=== PATIENT | female | born 1970 | race Caucasian/White ===

== ENCOUNTER → 2016-11-23 | Outpatient (CLI) | payer BC ==
[~2016-11-23] MED LIST: /ESCI20TA; /ESOM40CA; /PANT40TA PO; ACETTAB PO; CARI350T19 PO; DILA2TAB; FIORICET; FOLI1TAB; GAS-80CH; IMIT6INJ; IMIT6KIT SC; NEUR300C; NORCOBULK FT; PENT500C4 PO; SOMA350T; TOPA100T PO; TOPA200T PO; TOPI100T; TREXIMET; VICO5TAB; VITA-113; VITA100072 SL; ZOLO100T PO; [UNRECOGNIZED DRUG - CODE]; [UNRECOGNIZED DRUG - CODE] PO
[2016-11-23 18:55] LABS: MEAN CORPUSCULAR HEMOGLOBIN 29.8 pg (27.0-33.0); MEAN CORPUSCULAR VOLUME 90.4 fl (80.0-96.0); RED CELL DISTRIBUTION WIDTH 15.2 % (11.5-14.5); WHITE BLOOD COUNT 5.5 K/mm3 (4.0-10.0)
[2016-11-23 19:02] LABS: INR 1.05
[2016-11-23 19:54] LABS: ANION GAP 10 MEQ/L (8-16); BLOOD UREA NITROGEN 13 MG/DL (7-18); CALCIUM LEVEL 8.3 MG/DL (8.5-10.1); CARBON DIOXIDE LEVEL 21 MEQ/L (21-32); CHLORIDE LEVEL 111 MEQ/L (98-107); CREATININE FOR GFR 0.92 MG/DL (0.55-1.02); GLOMERULAR FILTRATION RATE > 60.0 (>58); GLUCOSE, FASTING 88 MG/DL (70-105); POTASSIUM SERUM 3.9 MEQ/L (3.5-5.1); SODIUM LEVEL 142 MEQ/L (136-145)
== END ==
LOC: M WUC 16:15
PROVIDERS: ATTEND Registered Nurse
DX: I67.1 Cerebral aneurysm, nonruptured (principal)

== ENCOUNTER → 2017-05-05 | Outpatient (CLI) | payer BC ==
[2017-05-05 19:52] LABS: MEAN CORPUSCULAR HEMOGLOBIN 31.8 pg (27.0-33.0); MEAN CORPUSCULAR HGB CONC 32.5 g/dl (32.0-36.5); MEAN CORPUSCULAR VOLUME 97.8 fl (80.0-96.0); RED CELL DISTRIBUTION WIDTH 13.1 % (11.5-14.5); WHITE BLOOD COUNT 8.8 K/mm3 (4.0-10.0)
[2017-05-05 20:08] LABS: ALBUMIN 3.4 GM/DL (3.2-5.2); ALBUMIN/GLOBULIN RATIO 1.13 (1.00-1.93); ALKALINE PHOSPHATASE 41 U/L (45-117); ALT/SGPT 16 U/L (12-78); ANION GAP 7 MEQ/L (8-16); AST/SGOT 11 U/L (15-37); BILIRUBIN,TOTAL 0.2 MG/DL (0.2-1.0); BLOOD UREA NITROGEN 11 MG/DL (7-18); CALCIUM LEVEL 8.4 MG/DL (8.5-10.1); CARBON DIOXIDE LEVEL 26 MEQ/L (21-32); CHLORIDE LEVEL 110 MEQ/L (98-107); CREATININE FOR GFR 0.77 MG/DL (0.55-1.02); GLOMERULAR FILTRATION RATE > 60.0 (>58); GLUCOSE, FASTING 77 MG/DL (70-105); POTASSIUM SERUM 4.4 MEQ/L (3.5-5.1); SODIUM LEVEL 143 MEQ/L (136-145); TOTAL PROTEIN 6.4 GM/DL (6.4-8.2)
[2017-05-05 20:19] LABS: VITAMIN B12 LEVEL 657 PG/ML (247-911)
== END ==
LOC: M WUC 16:43
PROVIDERS: ATTEND Internal Medicine Gastroenterology
DX: R10.84 Generalized abdominal pain (principal); K50.80 Crohn's disease of both small and large intestine without complications

== ENCOUNTER → 2017-08-12 | Outpatient (CLI) | payer BC ==
[2017-08-12 20:23] LABS: ALBUMIN 3.5 GM/DL (3.2-5.2); ALBUMIN/GLOBULIN RATIO 1.25 (1.00-1.93); ALKALINE PHOSPHATASE 36 U/L (45-117); ALT/SGPT 17 U/L (12-78); ANION GAP 6 MEQ/L (8-16); AST/SGOT 9 U/L (15-37); BILIRUBIN,TOTAL 0.2 MG/DL (0.2-1.0); BLOOD UREA NITROGEN 11 MG/DL (7-18); CALCIUM LEVEL 8.6 MG/DL (8.5-10.1); CARBON DIOXIDE LEVEL 24 MEQ/L (21-32); CHLORIDE LEVEL 111 MEQ/L (98-107); CREATININE FOR GFR 0.87 MG/DL (0.55-1.02); GLOMERULAR FILTRATION RATE > 60.0 (>58); GLUCOSE, FASTING 88 MG/DL (70-105); POTASSIUM SERUM 4.2 MEQ/L (3.5-5.1); SODIUM LEVEL 141 MEQ/L (136-145); TOTAL PROTEIN 6.3 GM/DL (6.4-8.2)
[2017-08-12 20:51] LABS: MEAN CORPUSCULAR HEMOGLOBIN 29.9 pg (27.0-33.0); MEAN CORPUSCULAR HGB CONC 32.5 g/dl (32.0-36.5); MEAN CORPUSCULAR VOLUME 91.9 fl (80.0-96.0); RED CELL DISTRIBUTION WIDTH 13.6 % (11.5-14.5)
[2017-08-13 12:40] LABS: CONTROL LINE HCG INT CTR LINE PRESENT
== END ==
LOC: M WUC 16:59
PROVIDERS: ATTEND Internal Medicine Gastroenterology
DX: K50.80 Crohn's disease of both small and large intestine without complications (principal)

== ENCOUNTER → 2017-09-24 | Outpatient (CLI) | payer BC ==
--- NOTE | 2017-09-24 16:39 | REPMRS ---
Patient History The patient states she had a clinical breast exam in 09/2017. Patient had previous chemotherapy. Family history of breast cancer in mother at age 61, breast cancer in 2 maternal aunts at age 50 or over, breast cancer in paternal aunt at age 50 or over, ovarian cancer in maternal grandmother at age 50 or over, and breast cancer in maternal cousin. Taking hormonal contraceptives for 27 years. Digital Woman Screen Mammo: September 24, 2017 - Exam #: [id number] Bilateral CC and MLO view(s) were taken. Technologist: Pia Campuzano, Technologist Prior study comparison: September 28, 2016, digital woman screen mammo performed at [facility]. October 04, 2015, right breast digital mammo diagnostic unilateral, performed at [facility]. October 02, 2015, digital woman screen mammo performed at [facility]. FINDINGS: The breast tissue is heterogeneously dense. This may lower the sensitivity of mammography. Stable groupings of microcalcifications are again noted on the right. There is a moderate amount of heterogeneously dense fibroglandular tissue which is fairly symmetric. There is no interval development of dominant mass, architectural distortion, or clustered microcalcification typical of malignancy. There has been no change in the appearance of the mammogram from the prior studies. ASSESSMENT: BI-RADS/ACR category 2 mammogram. Benign finding(s). Recommendation Routine screening mammogram of both breasts in 1 year (for women over age 40). This mammogram was interpreted with the aid of an FDA-approved computer-aided dectection system. Electronically Signed By: Tino Rahman MD 09/24/17 2914
== END ==
LOC: M WHC 15:30
PROVIDERS: ATTEND Nurse Practitioner Family
DX: Z12.31 Encounter for screening mammogram for malignant neoplasm of breast (principal); Z80.3 Family history of malignant neoplasm of breast; Z92.0 Personal history of contraception

== ENCOUNTER → 2018-04-02 | Outpatient (CLI) | payer BC ==
[2018-04-02 16:48] LABS: HEMATOCRIT 36.5 % (36.0-47.0); HEMOGLOBIN 11.7 g/dl (12.0-15.5); MEAN CORPUSCULAR HEMOGLOBIN 30.2 pg (27.0-33.0); MEAN CORPUSCULAR HGB CONC 32.1 g/dl (32.0-36.5); MEAN CORPUSCULAR VOLUME 94.1 fl (80.0-96.0); PLATELET COUNT, AUTOMATED 205 10^3/uL (150-450); RED BLOOD COUNT 3.88 10^6/uL (4.00-5.40); RED CELL DISTRIBUTION WIDTH 14.3 % (11.5-14.5); WHITE BLOOD COUNT 6.7 10^3/uL (4.0-10.0)
[2018-04-02 16:59] LABS: C REACTIVE PROTEIN QUANTITATIV < 0.30 MG/DL (0.00-0.30)
[2018-04-02 17:44] LABS: ERYTHROCYTE SEDIMENTATION RATE 8 mm/hr (0-20)
== END ==
LOC: M WUC 11:22
DX: K50.00 Crohn's disease of small intestine without complications (principal)
CPT/HCPCS: 86140

== ENCOUNTER → 2018-05-27 | Outpatient (CLI) | payer BC ==
[~2018-05-27] MED LIST changes: -/ESCI20TA; -/ESOM40CA; -/PANT40TA PO; -ACETTAB PO; -CARI350T19 PO; -DILA2TAB; -FIORICET; -FOLI1TAB; -GAS-80CH; +GASTROGRAFIN SOLUTION 30ML (Q9963) As Ordered; -IMIT6INJ; -IMIT6KIT SC; -NEUR300C; -NORCOBULK FT; -PENT500C4 PO; -SOMA350T; -TOPA100T PO; -TOPA200T PO; -TOPI100T; -TREXIMET; -VICO5TAB; -VITA-113; -VITA100072 SL; -ZOLO100T PO; -[UNRECOGNIZED DRUG - CODE]; -[UNRECOGNIZED DRUG - CODE] PO
== END ==
LOC: M RAD 16:30
DX: R10.84 Generalized abdominal pain (principal); K50.80 Crohn's disease of both small and large intestine without complications; K59.00 Constipation, unspecified
CPT/HCPCS: Q9963

== ENCOUNTER → 2018-06-09 | Outpatient (CLI) | payer BC ==
[2018-06-09 19:10] LABS: HEMATOCRIT 35.1 % (36.0-47.0); HEMOGLOBIN 11.3 g/dl (12.0-15.5); MEAN CORPUSCULAR HEMOGLOBIN 30.7 pg (27.0-33.0); MEAN CORPUSCULAR HGB CONC 32.2 g/dl (32.0-36.5); MEAN CORPUSCULAR VOLUME 95.4 fl (80.0-96.0); PLATELET COUNT, AUTOMATED 197 10^3/uL (150-450); RED BLOOD COUNT 3.68 10^6/uL (4.00-5.40); RED CELL DISTRIBUTION WIDTH 14.4 % (11.5-14.5); WHITE BLOOD COUNT 9.4 10^3/uL (4.0-10.0)
[2018-06-09 19:22] LABS: ALBUMIN 3.4 GM/DL (3.2-5.2); ALBUMIN/GLOBULIN RATIO 1.13 (1.00-1.93); ALKALINE PHOSPHATASE 28 U/L (45-117); ALT/SGPT 18 U/L (12-78); ANION GAP 6 MEQ/L (8-16); AST/SGOT 7 U/L (7-37); BILIRUBIN,TOTAL 0.2 MG/DL (0.2-1.0); BLOOD UREA NITROGEN 12 MG/DL (7-18); C REACTIVE PROTEIN QUANTITATIV < 0.30 MG/DL (0.00-0.30); CALCIUM LEVEL 8.1 MG/DL (8.5-10.1); CARBON DIOXIDE LEVEL 24 MEQ/L (21-32); CHLORIDE LEVEL 112 MEQ/L (98-107); CREATININE FOR GFR 0.87 MG/DL (0.55-1.30); GLOMERULAR FILTRATION RATE > 60.0 (>58); GLUCOSE, FASTING 71 MG/DL (70-100); MAGNESIUM LEVEL 2.1 MG/DL (1.8-2.4); POTASSIUM SERUM 4.3 MEQ/L (3.5-5.1); SODIUM LEVEL 142 MEQ/L (136-145); TOTAL PROTEIN 6.4 GM/DL (6.4-8.2)
[2018-06-09 19:26] LABS: TOTAL 25(OH) VITAMIN D 50.4 NG/ML (30.0-100.0); VITAMIN B12 LEVEL 372 PG/ML (247-911)
== END ==
LOC: M WUC 16:52
DX: R10.32 Left lower quadrant pain (principal); R10.31 Right lower quadrant pain; K50.80 Crohn's disease of both small and large intestine without complications; R11.0 Nausea; R53.83 Other fatigue; R60.0 Localized edema; E55.9 Vitamin D deficiency, unspecified
CPT/HCPCS: 83735

== ENCOUNTER → 2018-06-16 | Outpatient (CLI) | payer BC ==
[~2018-06-16] MED LIST changes: -GASTROGRAFIN SOLUTION 30ML (Q9963) As Ordered; +GLUCAGON FOR INJ 1 MG VIAL (J1610) As Ordered; +ISOVUE-370 76% 100ML VIAL (Q9967) As Ordered; +VoLumen 0.1% SUSPENSION 450ML BOTTLE As Ordered
== END ==
LOC: M RAD 11:37
DX: K50.80 Crohn's disease of both small and large intestine without complications (principal); R10.84 Generalized abdominal pain; Z90.49 Acquired absence of other specified parts of digestive tract
CPT/HCPCS: Q9967

== ENCOUNTER → 2018-06-30 | Outpatient (CLI) | payer BC | LOC: M WHC 15:46 | DX: N83.202 Unspecified ovarian cyst, left side (principal); Z90.721 Acquired absence of ovaries, unilateral | CPT/HCPCS: 76830 ==

== ENCOUNTER → 2018-07-28 | Outpatient (REF) | payer BC ==
[2018-07-28 17:57] LABS: CHLAMYDIA DNA AMPLIFICATION NEGATIVE (NEGATIVE); GC DNA AMPLIFICATION NEGATIVE (NEGATIVE)
== END ==
LOC: M SFHCWAGY 13:18
DX: Z11.3 Encounter for screening for infections with a predominantly sexual mode of transmission (principal)
CPT/HCPCS: 87591

== ENCOUNTER → 2018-08-01 | Outpatient (CLI) | payer BC | LOC: M WHC 14:04 | DX: N83.202 Unspecified ovarian cyst, left side (principal) | CPT/HCPCS: 76830 ==

== ENCOUNTER 2018-08-08 16:54 | Emergency (ER) | payer BC ==
[2018-08-08] MEDS: NS 1,000 ML IV (17:33)
[2018-08-08 17:51] LABS: BASO % 0.2 % (0.0-1.0); EOS # 0.2 10^3/uL (0.0-0.50); EOS % 4.2 % (0.0-3.0); HEMATOCRIT 35.3 % (36.0-47.0); HEMOGLOBIN 11.8 g/dl (12.0-15.5); IMMATURE GRANULOCYTE % 0.2 % (0-3.0); LYMPH # 1.7 10^3/uL (1.5-4.5); LYMPH % 36.4 % (24.0-44.0); MEAN CORPUSCULAR HEMOGLOBIN 29.7 pg (27.0-33.0); MEAN CORPUSCULAR HGB CONC 33.4 g/dl (32.0-36.5); MEAN CORPUSCULAR VOLUME 88.9 fl (80.0-96.0); MONO # 0.7 10^3/uL (0.0-0.8); MONO % 14.7 % (0.0-5.0); NEUTROPHILS # 2.1 10^3/uL (1.8-7.7); NEUTROPHILS % 44.3 % (36.0-66.0); PLATELET COUNT, AUTOMATED 168 10^3/uL (150-450); RED BLOOD COUNT 3.97 10^6/uL (4.00-5.40); RED CELL DISTRIBUTION WIDTH 14.5 % (11.5-14.5); WHITE BLOOD COUNT 4.8 10^3/uL (4.0-10.0)
[2018-08-08 18:10] LABS: CONTROL LINE HCG INT CTR LINE PRESENT; HCG, SERUM QUALITATIVE NEGATIVE (NEGATIVE)
[2018-08-08 18:17] LABS: ALBUMIN 3.8 GM/DL (3.2-5.2); ALBUMIN/GLOBULIN RATIO 1.23 (1.00-1.93); ALKALINE PHOSPHATASE 39 U/L (45-117); ALT/SGPT 16 U/L (12-78); AMYLASE 104 U/L (25-115); ANION GAP 8 MEQ/L (8-16); AST/SGOT 14 U/L (7-37); BILIRUBIN,DIRECT < 0.1 MG/DL (0.0-0.2); BILIRUBIN,TOTAL 0.2 MG/DL (0.2-1.0); BLOOD UREA NITROGEN 13 MG/DL (7-18); CARBON DIOXIDE LEVEL 20 MEQ/L (21-32); CHLORIDE LEVEL 116 MEQ/L (98-107); GLOMERULAR FILTRATION RATE > 60.0 (>58); GLUCOSE, FASTING 88 MG/DL (70-100); LIPASE 256 U/L (73-393); POTASSIUM SERUM 3.7 MEQ/L (3.5-5.1); SODIUM LEVEL 144 MEQ/L (136-145); TOTAL PROTEIN 6.9 GM/DL (6.4-8.2)
[2018-08-08] MEDS ORDERED: GASTROGRAFIN SOLUTION 30ML (Q9963) As Ordered (18:20)
[2018-08-08] MEDS: ONDANSETRON 4MG/2ML VIAL (J2405) IV ×2 (19:21→23:25)
[2018-08-08] MEDS: MORPHINE 2 MG/ML 1ML SYRINGE (J2270) IV ×2 (19:21→23:31)
[2018-08-08] MEDS: GASTROGRAFIN SOLUTION 30ML PO ×2 (19:21→19:49)
[2018-08-08 19:22] LABS: KETONE, URINE AUTO RFX NEGATIVE (NEGATIVE); LEUKOCYTE ESTERASE UR AUTO RFX NEGATIVE (NEGATIVE); NITRITE, URINE AUTO RFX NEGATIVE (NEGATIVE); RBC, URINE AUTO RFX 0 /HPF (0-3); SPECIFIC GRAVITY UR AUTO RFX 1.003 (1.002-1.035); SQUAM EPITHELIAL CELL UR AURFX 0 /HPF (0-6); WBC, URINE AUTO RFX 0 /HPF (0-3)
[2018-08-08] MEDS ORDERED: ISOVUE-370 76% 100ML VIAL (Q9967) As Ordered (19:55)
[2018-08-08] MEDS: methylPREDNISolone INJ 125 MG/2 ML VIAL (J2930) IV (23:25)
== END 2018-08-08 23:59 | disposition home or self-care (01) ==
LOC: M ED 16:54
DX: K50.90 Crohn's disease, unspecified, without complications (principal)
CPT/HCPCS: J2405

== ENCOUNTER → 2018-08-22 | Outpatient (CLI) | payer BC ==
[2018-08-22 18:46] LABS: FERRITIN 8 NG/ML (8-252); IRON (FE) 84 UG/DL (50-170); MAGNESIUM LEVEL 2.3 MG/DL (1.8-2.4); PERCENT SATURATION 26.7 % (13.2-45.0); TOTAL IRON BINDING CAPACITY 315 UG/DL (250-450)
[2018-08-22 18:59] LABS: HEPATITIS B SURFACE ANTIGEN NEGATIVE (NEGATIVE)
[2018-08-22 19:27] LABS: HEPATITIS C VIRUS ABY INDEX < 0.0 INDEX (<0.8)
[2018-08-27 08:42] LABS: QUANTIFERON GOLD TB Negative (Negative); TB Test (QFT) Antigen 0.03 IU/mL (.); TB Test (QFT) Mitogen 1.19 IU/mL (.); TB Test (QFT) Nil 0.03 IU/mL (.)
== END ==
LOC: M WUC 14:36
DX: K50.80 Crohn's disease of both small and large intestine without complications (principal); R10.32 Left lower quadrant pain
CPT/HCPCS: 83550

== ENCOUNTER → 2018-09-09 | Outpatient (REF) | payer BC | LOC: M LAB REF 21:07 | DX: R10.814 Left lower quadrant abdominal tenderness (principal) ==

== ENCOUNTER → 2018-09-23 | Outpatient (CLI) | payer BC ==
[2018-09-23 19:11] LABS: BASO % 0.2 % (0.0-1.0); EOS # 0.2 10^3/uL (0.0-0.50); EOS % 2.8 % (0.0-3.0); IMMATURE GRANULOCYTE % 0.5 % (0-3.0); LYMPH # 1.8 10^3/uL (1.5-4.5); LYMPH % 30.6 % (24.0-44.0); MEAN CORPUSCULAR HEMOGLOBIN 29.6 pg (27.0-33.0); MEAN CORPUSCULAR HGB CONC 31.4 g/dl (32.0-36.5); MEAN CORPUSCULAR VOLUME 94.3 fl (80.0-96.0); MONO # 0.6 10^3/uL (0.0-0.8); MONO % 10.6 % (0.0-5.0); NEUTROPHILS # 3.3 10^3/uL (1.8-7.7); NEUTROPHILS % 55.3 % (36.0-66.0); PLATELET COUNT, AUTOMATED 227 10^3/uL (150-450); RED BLOOD COUNT 3.71 10^6/uL (4.00-5.40); RED CELL DISTRIBUTION WIDTH 14.8 % (11.5-14.5)
[2018-09-23 19:20] LABS: FERRITIN 6 NG/ML (8-252); IRON (FE) 18 UG/DL (50-170); PERCENT SATURATION 5.1 % (13.2-45.0); TOTAL IRON BINDING CAPACITY 356 UG/DL (250-450)
[2018-09-23 19:26] LABS: VITAMIN B12 LEVEL 597 PG/ML (247-911)
== END ==
LOC: M WUC 18:02
DX: R10.31 Right lower quadrant pain (principal); R10.32 Left lower quadrant pain; K50.80 Crohn's disease of both small and large intestine without complications; R14.3 Flatulence
CPT/HCPCS: 83550

== ENCOUNTER → 2018-09-23 | Outpatient (CLI) | payer BC ==
[2018-09-23 19:11] LABS: BASO % 0.2 % (0.0-1.0); EOS # 0.2 10^3/uL (0.0-0.50); EOS % 3.6 % (0.0-3.0); HEMATOCRIT 34.9 % (36.0-47.0); HEMOGLOBIN 11.1 g/dl (12.0-15.5); IMMATURE GRANULOCYTE % 0.3 % (0-3.0); LYMPH # 1.9 10^3/uL (1.5-4.5); MEAN CORPUSCULAR HEMOGLOBIN 29.4 pg (27.0-33.0); MEAN CORPUSCULAR HGB CONC 31.8 g/dl (32.0-36.5); MEAN CORPUSCULAR VOLUME 92.3 fl (80.0-96.0); MONO # 0.7 10^3/uL (0.0-0.8); MONO % 10.7 % (0.0-5.0); NEUTROPHILS # 3.3 10^3/uL (1.8-7.7); NEUTROPHILS % 54.2 % (36.0-66.0); PLATELET COUNT, AUTOMATED 241 10^3/uL (150-450); RED BLOOD COUNT 3.78 10^6/uL (4.00-5.40); RED CELL DISTRIBUTION WIDTH 14.7 % (11.5-14.5); WHITE BLOOD COUNT 6.1 10^3/uL (4.0-10.0)
== END ==
LOC: M WUC 17:46
DX: R10.814 Left lower quadrant abdominal tenderness (principal)
CPT/HCPCS: 82785

== ENCOUNTER → 2018-09-26 | Outpatient (REF) | payer BC ==
[2018-10-04 10:21] LABS: O+P EXAM Final report (.)
[2018-10-04 10:21] LABS: CALPROTECTIN STOOL 67 ug/g (0-120)
== END ==
LOC: M LAB REF 18:03
DX: R10.31 Right lower quadrant pain (principal); R10.32 Left lower quadrant pain; K50.80 Crohn's disease of both small and large intestine without complications; R14.3 Flatulence

== ENCOUNTER → 2018-12-05 | Outpatient (CLI) | payer BC ==
[~2018-12-05] MED LIST changes: +/ESCI20TA; +/ESOM40CA; +/PANT40TA PO; +ACETTAB PO; +CARI350T19 PO; +DILA2TAB; +FIORICET; +FOLI1TAB; +GAS-80CH; -GLUCAGON FOR INJ 1 MG VIAL (J1610) As Ordered; +IMIT6INJ; +IMIT6KIT SC; -ISOVUE-370 76% 100ML VIAL (Q9967) As Ordered; +NEUR300C; +NORCOBULK FT; +NORCOTAB PO; +PENT500C4 PO; +PRED20TA PO; +SOMA350T; +TOPA100T PO; +TOPA200T PO; +TOPI100T; +TREXIMET; +VICO5TAB; +VITA-113; +VITA100072 SL; -VoLumen 0.1% SUSPENSION 450ML BOTTLE As Ordered; +ZOLO100T PO; +[UNRECOGNIZED DRUG - CODE]; +[UNRECOGNIZED DRUG - CODE] PO
--- NOTE | 2018-12-08 12:46 | DEXA ---
AP SPINE L1 - L4 1.225 0.2 0.3 LT FEMUR TOTAL 0.825 -1.5 -1.1 LT NECK 0.800 -1.7 -1.1 RT FEMUR TOTAL 0.839 -1.3 -1.0 RT NECK 0.800 -1.7 -1.1 TOTAL BODY TOTAL OTHER COMMENTS: Normal bone densitometry of the spine. There is low bone density of the hips. The density of the spine has decreased 4.2% since 02/27/2005. The density of the left hip has decreased 10.4% since 02/27/2005. The density of the right hip has decreased 6.6% since 02/27/2005. FOLLOW-UP: Recommendation for the next bone density exam: 2 years. RAJIV
== END ==
LOC: M WHC 12:52
PROVIDERS: ATTEND Nurse Practitioner Family
DX: Z30.42 Encounter for surveillance of injectable contraceptive (principal); Z79.899 Other long term (current) drug therapy

== ENCOUNTER → 2018-12-15 | Outpatient (REF) | payer BC ==
[2018-12-20 14:17] LABS: HPV HYBRID CAPTURE II Positive (Negative)
== END ==
LOC: M SFHCWAGY 14:19
PROVIDERS: ATTEND Nurse Practitioner Family
DX: Z12.4 Encounter for screening for malignant neoplasm of cervix (principal)
CPT/HCPCS: 87624; G0123

== ENCOUNTER → 2018-12-15 | Outpatient (CLI) | payer BC ==
--- NOTE | 2018-12-15 15:20 | REPMRS ---
Patient History The patient states she had a clinical breast exam in 11/2018. Patient had previous chemotherapy. Family history of breast cancer at age 61 in mother, breast cancer at age 50 or over in maternal aunt, breast cancer at age 50 or over in maternal aunt, breast cancer at age 50 or over in paternal aunt, ovarian cancer at age 50 or over in maternal grandmother, breast cancer in maternal cousin. Taking hormonal contraceptives for 28 years. 3D TOMOSYNTHESIS WAS PERFORMED. Digital Woman Screen Mammo: December 15, 2018 - Exam #: [id number] Bilateral CC and MLO view(s) were taken. Technologist: Pia Campuzano, Technologist Prior study comparison: September 24, 2017, digital woman screen mammo performed at [facility]. September 28, 2016, digital woman screen mammo performed at [facility]. FINDINGS: The breast tissue is heterogeneously dense. This may lower the sensitivity of mammography. There has been no change in the appearance of the mammogram from the prior studies. There is a moderate amount of residual fibroglandular tissue which is fairly symmetric. There is no interval development of dominant mass, areas of architectural distortion, or clustered microcalcification typical of malignancy. Assessment: BI-RADS/ACR category 1 mammogram. Negative Mammogram. Recommendation Routine screening mammogram in 1 year (for women over age 40). This mammogram was interpreted with the aid of an FDA-approved computer-aided dectection system. THE LIFETIME RISK OF BREAST CANCER IS 33.7%, THEREFORE SUPPLEMENTAL SCREENING MRI OF THE BREASTS IS RECOMMENDED. Electronically Signed By: Brayan Lam MD 12/15/18 [id number]
== END ==
LOC: M WHC 13:50
PROVIDERS: ATTEND Nurse Practitioner Family
DX: Z12.31 Encounter for screening mammogram for malignant neoplasm of breast (principal)

== ENCOUNTER → 2019-03-17 | Outpatient (CLI) | payer BC ==
[~2019-03-17] MED LIST changes: -/ESCI20TA; -/ESOM40CA; -/PANT40TA PO; +HYDR-3715 PO; +LEXA1TAB2; +NEXI1CAP3; -NORCOTAB PO; +PROT1TAB2 PO
[2019-03-17 21:06] LABS: HEMATOCRIT 39.1 % (36.0-47.0); HEMOGLOBIN 12.8 g/dl (12.0-15.5); MEAN CORPUSCULAR HEMOGLOBIN 31.5 pg (27.0-33.0); MEAN CORPUSCULAR HGB CONC 32.7 g/dl (32.0-36.5); MEAN CORPUSCULAR VOLUME 96.3 fl (80.0-96.0); PLATELET COUNT, AUTOMATED 198 10^3/uL (150-450); RED BLOOD COUNT 4.06 10^6/uL (4.00-5.40); WHITE BLOOD COUNT 6.3 10^3/uL (4.0-10.0)
[2019-03-17 21:15] LABS: ALBUMIN 3.6 GM/DL (3.2-5.2); ALT/SGPT 18 U/L (12-78); BILIRUBIN,TOTAL 0.3 MG/DL (0.2-1.0); BLOOD UREA NITROGEN 11 MG/DL (7-18); C REACTIVE PROTEIN QUANTITATIV < 0.30 MG/DL (0.00-0.30); CALCIUM LEVEL 8.1 MG/DL (8.5-10.1); CARBON DIOXIDE LEVEL 25 MEQ/L (21-32); CHLORIDE LEVEL 113 MEQ/L (98-107); FERRITIN 23 NG/ML (8-252); GLOMERULAR FILTRATION RATE > 60.0 (>58); GLUCOSE, FASTING 77 MG/DL (70-100); IRON (FE) 45 UG/DL (50-170); MAGNESIUM LEVEL 2.2 MG/DL (1.8-2.4); PERCENT SATURATION 17.9 % (13.2-45.0); POTASSIUM SERUM 3.7 MEQ/L (3.5-5.1); SODIUM LEVEL 141 MEQ/L (136-145); TOTAL IRON BINDING CAPACITY 252 UG/DL (250-450); TOTAL PROTEIN 6.6 GM/DL (6.4-8.2)
[2019-03-17 21:24] LABS: TOTAL 25(OH) VITAMIN D 50.8 NG/ML (30.0-100.0)
[2019-03-20 14:10] LABS: PROTEIN S ANTIGEN FREE 68 % (57-157); PROTEIN S ANTIGEN TOTAL 69 % (60-150)
== END ==
LOC: M WUC 16:23
PROVIDERS: ATTEND Internal Medicine Gastroenterology
DX: K50.80 Crohn's disease of both small and large intestine without complications (principal); R10.32 Left lower quadrant pain; R19.7 Diarrhea, unspecified; D50.9 Iron deficiency anemia, unspecified; G47.09 Other insomnia; E55.9 Vitamin D deficiency, unspecified

== ENCOUNTER → 2019-06-01 | Outpatient (CLI) | payer BC ==
--- NOTE | 2019-06-01 17:08 | REP ---
Pelvic sonography: History: History of ovarian cysts. Left lower quadrant pain. Findings: Transabdominal and transvaginal scanning are performed. Uterine dimensions are 8.3 x 3.1 x 4.4 cm. Endometrial echo is 0.4 cm thick. Visualized bladder carson are smooth. There is a lower uterine segment cyst 1.0 x 0.7 cm consistent with a Nabothian cyst. The right ovary is normal measuring 1.8 x 0.8 x 1.5 cm. Doppler flow is normal with resistive index 0.64. Left ovarian dimensions are 5.4 x 2.6 x 3.2 cm. There is a 2.9 x 1.9 x 3.2 cm septated cyst in the left adnexa adjacent to a 1.9 x 2.5 x 1.2 cm cyst. Impression: Complex left ovarian cysts, the largest of which measures 3.2 cm in greatest diameter. Otherwise negative pelvic sonography.
== END ==
LOC: M WHC 13:44
PROVIDERS: ATTEND Nurse Practitioner Women's Health
DX: N83.202 Unspecified ovarian cyst, left side (principal); Z87.42 Personal history of other diseases of the female genital tract

== ENCOUNTER → 2019-07-08 | Outpatient (CLI) | payer BC ==
[~2019-07-08] MED LIST changes: +HUMI40KI2 SC; +HYOS1TAB; +LAMO25TA4; +MAG-400T7; +SUMA100T2; +SUMA6INJ16
[2019-07-08 18:45] LABS: BASO % 0.4 % (0.0-1.0); EOS # 0.4 10^3/uL (0.0-0.50); EOS % 8.1 % (0.0-3.0); HEMATOCRIT 37.1 % (36.0-47.0); HEMOGLOBIN 11.9 g/dl (12.0-15.5); LYMPH # 1.9 10^3/uL (1.5-4.5); LYMPH % 37.7 % (24.0-44.0); MEAN CORPUSCULAR HEMOGLOBIN 31.8 pg (27.0-33.0); MEAN CORPUSCULAR HGB CONC 32.1 g/dl (32.0-36.5); MEAN CORPUSCULAR VOLUME 99.2 fl (80.0-96.0); MONO # 0.5 10^3/uL (0.0-0.8); MONO % 8.8 % (0.0-5.0); NEUTROPHILS # 2.3 10^3/uL (1.8-7.7); NEUTROPHILS % 44.8 % (36.0-66.0); PLATELET COUNT, AUTOMATED 205 10^3/uL (150-450); RED BLOOD COUNT 3.74 10^6/uL (4.00-5.40); WHITE BLOOD COUNT 5.1 10^3/uL (4.0-10.0)
[2019-07-08 18:57] LABS: ALBUMIN 3.3 GM/DL (3.2-5.2); ALT/SGPT 16 U/L (12-78); BILIRUBIN,TOTAL 0.3 MG/DL (0.2-1.0); BLOOD UREA NITROGEN 13 MG/DL (7-18); CALCIUM LEVEL 8.1 MG/DL (8.5-10.1); CARBON DIOXIDE LEVEL 24 MEQ/L (21-32); CHLORIDE LEVEL 111 MEQ/L (98-107); CHOLESTEROL LEVEL 200 MG/DL (<200); CHOLESTEROL RISK RATIO 3.703 (<5); CREATININE FOR GFR 0.82 MG/DL (0.55-1.30); FERRITIN 9 NG/ML (8-252); FREE T4 0.94 NG/DL (0.76-1.46); GLOMERULAR FILTRATION RATE > 60.0 (>58); GLUCOSE, FASTING 85 MG/DL (70-100); HDL CHOLESTEROL 54 MG/DL (>40); IRON (FE) 63 UG/DL (50-170); LDL CHOLESTEROL 112 MG/DL (<100); NON-HDL-C 146 MG/DL; PERCENT SATURATION 20.9 % (13.2-45.0); POTASSIUM SERUM 3.8 MEQ/L (3.5-5.1); SODIUM LEVEL 143 MEQ/L (136-145); TOTAL IRON BINDING CAPACITY 301 UG/DL (250-450); TOTAL PROTEIN 5.9 GM/DL (6.4-8.2); TRIGLYCERIDES LEVEL 168 MG/DL (<150)
[2019-07-10 11:02] LABS: TOTAL 25(OH) VITAMIN D 35.8 NG/ML (30.0-100.0)
== END ==
LOC: M WUC 09:13
PROVIDERS: ATTEND Physician Assistant
DX: Z13.220 Encounter for screening for lipoid disorders (principal); D50.9 Iron deficiency anemia, unspecified; Z13.29 Encounter for screening for other suspected endocrine disorder; E55.9 Vitamin D deficiency, unspecified

== ENCOUNTER → 2019-10-04 | Outpatient (CLI) | payer BC ==
[~2019-10-04] MED LIST changes: -HUMI40KI2 SC; -HYOS1TAB; -LAMO25TA4; -MAG-400T7; -SUMA100T2; -SUMA6INJ16
--- NOTE | 2019-10-04 16:35 | REP ---
Single view abdomen: 10/04/2019. Indication: Abdominal pain. Comparison: 08/08/2018. Findings: increased stool is noted within the colon throughout. There is mild dilation of the small bowel near the anastomotic site. No air fluid level is present. There is no evidence of renal calculus. There is no evidence of organomegaly. Impression: Constipation? Mildly dilated distal small bowel near the anastomosis. No evidence of obstruction. Electronically Signed by Dakotah Thornton DO 10/04/2019 04:26 P
== END ==
LOC: M RAD 15:33
PROVIDERS: ATTEND Internal Medicine Gastroenterology
DX: R10.13 Epigastric pain (principal); K59.00 Constipation, unspecified; R11.2 Nausea with vomiting, unspecified; Z98.0 Intestinal bypass and anastomosis status; K59.8 Other specified functional intestinal disorders

== ENCOUNTER 2019-11-21 15:08 | Emergency (ER) | payer BC ==
[~2019-11-21] VITALS: Ht 162.6 cm; Wt 68.2 kg
[2019-11-21] MEDS ORDERED: HUMI40KI2 SC (15:59)
[2019-11-21] MEDS ORDERED: HYOS1TAB (15:59)
[2019-11-21] MEDS ORDERED: SUMA100T2 (15:59)
[2019-11-21] MEDS ORDERED: LAMO25TA4 (15:59)
[2019-11-21] MEDS ORDERED: MAG-400T7 (15:59)
[2019-11-21] MEDS ORDERED: SUMA6INJ16 (15:59)
--- NOTE | 2019-11-21 16:07 | REP ---
INDICATION: Headache, blurred vision. PROCEDURE: Noncontrast head CT. COMPARISON STUDIES: No prior similar studies. FINDINGS: No acute bleed or acute large vessel territorial infarct. Ventricles, cisterns and sulci are within normal limits. No mass effect or midline shift. No abnormal fluid collections. Paranasal sinuses and mastoid air cells are clear. IMPRESSION: No acute findings. Electronically Signed by Hiram Hussein MD 11/21/2019 03:59 P
--- NOTE | 2019-11-21 16:10 | REP ---
INDICATION: Headache, blurred vision. PROCEDURE: CT cervical spine without contrast. COMPARISON STUDIES: No prior similar studies. FINDINGS: Spinal alignment within normal limits. No evidence of fracture or subluxation. Cranial vertebral junction is unremarkable. Spinal canal widely patent. No evidence of a limiting foraminal stenosis. There is mild posterior osteophyte formation and mild osteophytic spurring with minimal narrowing of the neural foramen bilaterally. CONCLUSION: No acute findings. Minor degenerative changes. Electronically Signed by Hiram Hussein MD 11/21/2019 04:01 P
[2019-11-21] MEDS ORDERED: diphenhydrAMINE INJ 50MG/ML VIAL (J1200) IV STA (17:19)
[2019-11-21] MEDS ORDERED: ONDANSETRON 4MG/2ML VIAL (J2405) IV ONE (17:30)
[2019-11-21] MEDS ORDERED: NS 1,000 ML IV ONE (17:30)
[2019-11-21 17:55] LABS: BASO % 0.4 % (0.0-1.0); EOS # 0.3 10^3/uL (0.0-0.5); EOS % 4.3 % (0.0-3.0); HEMATOCRIT 34.4 % (36.0-47.0); HEMOGLOBIN 10.8 g/dl (12.0-15.5); LYMPH % 28.9 % (24.0-44.0); MEAN CORPUSCULAR HEMOGLOBIN 27.8 pg (27.0-33.0); MEAN CORPUSCULAR HGB CONC 31.4 g/dl (32.0-36.5); MEAN CORPUSCULAR VOLUME 88.7 fl (80.0-96.0); MONO # 0.7 10^3/uL (0.0-0.8); MONO % 10.6 % (0.0-5.0); NEUTROPHILS # 3.8 10^3/uL (1.5-8.5); NEUTROPHILS % 55.5 % (36.0-66.0); PLATELET COUNT, AUTOMATED 215 10^3/uL (150-450); RED BLOOD COUNT 3.88 10^6/uL (4.00-5.40); WHITE BLOOD COUNT 6.8 10^3/uL (4.0-10.0)
--- NOTE | 2019-11-21 20:51 | REPVR ---
PROCEDURE INFORMATION: Exam: MR Head Without Contrast Exam date and time: 11/21/2019 6:53 PM Age: 48 years old Clinical indication: Visual disturbance; Patient HX: HX leaking anuerysm, DUNCAN, R eye blind, R eye twitching TECHNIQUE: Imaging protocol: MR of the head without contrast. COMPARISON: CT Head without contrast 11/21/2019 3:43 PM FINDINGS: Ventricles demonstrate normal size and configuration. Major vascular flow voids at the skull base are preserved. No extra-axial fluid collection. No midline shift or intracranial mass effect. No pathologic white-matter signal or susceptibility. No cerebral edema. No diffusion restriction. Visualized paranasal sinuses and mastoid air cells are clear. IMPRESSION: No acute intracranial abnormality. Electronically signed by: Josh Rees On 11/21/2019 20:51:32 PM
--- NOTE | 2019-11-21 20:56 | REPVR ---
PROCEDURE INFORMATION: Exam: MR Angiogram Head Without Contrast, Arteries Exam date and time: 11/21/2019 6:53 PM Age: 48 years old Clinical indication: Visual disturbance; Type not specified; Patient HX: HX leaking anuerysm, DUNCAN, R eye blind, R eye twitching TECHNIQUE: Imaging protocol: MR angiogram head without contrast. Exam focused on the arteries. 3D rendering: MIP and/or 3D reconstructed images were created by the technologist. COMPARISON: CT Head without contrast 11/21/2019 3:43 PM FINDINGS: Right internal carotid artery: Unremarkable. Intracranial segment is patent with no significant stenosis. No aneurysm. Right anterior cerebral artery: Hypoplastic right A1 segment. 1.5 mm x 2 mm aneurysm involving the anterior communicating artery. Right middle cerebral artery: 1 mm x 1.5 mm aneurysm involving the right M1 segment. Right posterior cerebral artery: Unremarkable. No occlusion or significant stenosis. No aneurysm. Right vertebral artery: Unremarkable. No occlusion or significant stenosis. No aneurysm. Left internal carotid artery: Unremarkable. Intracranial segment is patent with no significant stenosis. No aneurysm. Left anterior cerebral artery: Unremarkable. No occlusion or significant stenosis. No aneurysm. Left middle cerebral artery: Unremarkable. No occlusion or significant stenosis. No aneurysm. Left posterior cerebral artery: Unremarkable. No occlusion or significant stenosis. No aneurysm. Left vertebral artery: Unremarkable. No occlusion or significant stenosis. No aneurysm. Basilar artery: Unremarkable. No occlusion or significant stenosis. No aneurysm. IMPRESSION: 1. 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 2. 1 mm x 1.5 mm aneurysm involving the right M1 segment. 3. No hemodynamically significant stenosis or large vessel occlusion. Electronically signed by: Josh Rees On 11/21/2019 20:56:06 PM
[2019-11-21] MEDS ORDERED: PRED20TA PO (22:38)
[2019-11-21] MEDS ORDERED: predniSONE 20 MG TAB PO ONE (22:45)
[2019-11-21 22:46] VITALS: BP 109/65
--- NOTE | 2019-11-22 13:02 | ED PDOC ---
Post-Departure Follow-Up dr olivas and mandie pascual faxed formal report of [facility] brain for fu Mohan Villatoro MD Nov 22, 2019 13:02
== END 2019-11-21 22:59 | disposition home or self-care (01) ==
LOC: M ED 15:08
DX: I67.1 Cerebral aneurysm, nonruptured (principal); G44.40 Drug-induced headache, not elsewhere classified, not intractable; H53.131 Sudden visual loss, right eye; M51.26 Other intervertebral disc displacement, lumbar region; K50.919 Crohn's disease, unspecified, with unspecified complications; M25.78 Osteophyte, vertebrae; J30.2 Other seasonal allergic rhinitis; Z79.899 Other long term (current) drug therapy; Z88.0 Allergy status to penicillin; Z88.8 Allergy status to other drugs, medicaments and biological substances
CPT/HCPCS: 70450; 70544; 70551; 72125; 80047; 83735; 84702; 85025; 96361; 96374; 96375; 99284; J1200; J2405

== ENCOUNTER → 2019-12-18 | Outpatient (CLI) | payer BC ==
[~2019-12-18] MED LIST changes: +HUMI40KI2 SC; +HYOS1TAB; +LAMO25TA4; +MAG-400T7; +SUMA100T2; +SUMA6INJ16
[2019-12-18 12:14] LABS: BASO % 0.2 % (0.0-1.0); EOS # 0.3 10^3/uL (0.0-0.5); EOS % 4.9 % (0.0-3.0); HEMATOCRIT 39.3 % (36.0-47.0); HEMOGLOBIN 11.9 g/dl (12.0-15.5); LYMPH # 1.7 10^3/uL (1.5-5.0); LYMPH % 32.9 % (24.0-44.0); MEAN CORPUSCULAR HEMOGLOBIN 26.8 pg (27.0-33.0); MEAN CORPUSCULAR HGB CONC 30.3 g/dl (32.0-36.5); MEAN CORPUSCULAR VOLUME 88.5 fl (80.0-96.0); MONO # 0.4 10^3/uL (0.0-0.8); MONO % 7.2 % (0.0-5.0); NEUTROPHILS # 2.8 10^3/uL (1.5-8.5); NEUTROPHILS % 54.4 % (36.0-66.0); PLATELET COUNT, AUTOMATED 289 10^3/uL (150-450); RED BLOOD COUNT 4.44 10^6/uL (4.00-5.40); WHITE BLOOD COUNT 5.1 10^3/uL (4.0-10.0)
[2019-12-18 12:23] LABS: APPEARANCE, URINE HAZY (CLEAR); BACTERIA, URINE AUTO NEGATIVE (NEGATIVE); BILIRUBIN, URINE AUTO NEGATIVE (NEGATIVE); BLOOD, URINE BLOOD NEGATIVE (NEGATIVE); COLOR, URINE AMBER (YELLOW); GLUCOSE, URINE (UA) AUTO NEGATIVE (NEGATIVE); KETONE, URINE AUTO NEGATIVE (NEGATIVE); LEUKOCYTE ESTERASE, URINE AUTO NEGATIVE (NEGATIVE); MUCUS, URINE SMALL (NEGATIVE); NITRITE, URINE AUTO NEGATIVE (NEGATIVE); PROTEIN, URINE AUTO NEGATIVE (NEGATIVE); RBC, URINE AUTO 2 /HPF (0-3); SPECIFIC GRAVITY URINE AUTO 1.027 (1.002-1.035); SQUAMOUS EPITHELIAL CELL UR AU 1 /HPF (0-6); UROBILINOGEN, URINE AUTO 0.2 mg/dL (0.0-2.0); WBC, URINE AUTO 2 /HPF (0-3)
[2019-12-18 12:29] LABS: INR 0.95; PROTHROMBIN TIME 12.4 SECONDS (11.8-14.0)
[2019-12-18 12:30] LABS: PARTIAL THROMBOPLASTIN TIME 31.6 SECONDS (25.0-38.4)
--- NOTE | 2019-12-18 12:34 | REP ---
Chest x-ray: Two views. History: preadmission testing . Comparison study: January 15, 2010 . Findings: The lungs are well inflated and free of infiltrate. The pleural angles are sharp. The heart size is normal. Pulmonary vasculature is not increased. No significant bony abnormality is seen. Impression: Negative chest x-ray. Electronically Signed by Robbie Rahman MD 12/18/2019 12:26 P
[2019-12-18 12:43] LABS: ALBUMIN 3.9 GM/DL (3.2-5.2); ALT/SGPT 40 U/L (12-78); BILIRUBIN,TOTAL 0.5 MG/DL (0.2-1.0); BLOOD UREA NITROGEN 16 MG/DL (7-18); CALCIUM LEVEL 9.1 MG/DL (8.5-10.1); CARBON DIOXIDE LEVEL 26 MEQ/L (21-32); CHLORIDE LEVEL 108 MEQ/L (98-107); CREATININE FOR GFR 0.89 MG/DL (0.55-1.30); GLOMERULAR FILTRATION RATE > 60.0 (>58); GLUCOSE, FASTING 114 MG/DL (70-100); HCG, SERUM QUALITATIVE NEGATIVE (NEGATIVE); POTASSIUM SERUM 3.7 MEQ/L (3.5-5.1); SODIUM LEVEL 142 MEQ/L (136-145); TOTAL PROTEIN 7.5 GM/DL (6.4-8.2)
--- NOTE | 2019-12-18 20:54 | ECGEPIP ---
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
[2019-12-22 14:47] LABS: C REACTIVE PROTEIN QUANTITATIV < 0.30 MG/DL (0.00-0.30)
== END ==
LOC: M LAB 11:34
PROVIDERS: ATTEND Neurological Surgery
DX: Z01.818 Encounter for other preprocedural examination (principal); I67.1 Cerebral aneurysm, nonruptured; R51 Headache; H53.121 Transient visual loss, right eye

== ENCOUNTER → 2019-12-19 | Outpatient (REF) | payer BC | LOC: M SFHCWAGY 10:51 | PROVIDERS: ATTEND Nurse Practitioner Family | DX: R87.810 Cervical high risk human papillomavirus (HPV) DNA test positive (principal) | CPT/HCPCS: 87624; G0123 ==

== ENCOUNTER → 2019-12-19 | Outpatient (CLI) | payer BC ==
--- NOTE | 2019-12-20 11:46 | REPMRS ---
Patient History The patient states she had a clinical breast exam in December 2019.Family history of breast cancer at age 61 in mother, breast cancer at age 50 or over in maternal aunt, breast cancer at age 50 or over in maternal aunt, breast cancer at age 50 or over in paternal aunt, ovarian cancer at age 50 or over in maternal grandmother, breast cancer in maternal cousin. Taking hormonal contraceptives for 28 years. Digital Woman Screen Mammo: December 19, 2019 - Exam #: [id number] Bilateral CC and MLO view(s) were taken. Technologist: Birdie Montiel, Technologist Prior study comparison: December 15, 2018, bilateral digital woman screen mammo performed at [facility]. September 24, 2017, digital woman screen mammo performed at [facility]. September 28, 2016, digital woman screen mammo performed at [facility]. FINDINGS: The breast tissue is heterogeneously dense. This may lower the sensitivity of mammography. There is a moderate amount of heterogeneously dense fibroglandular tissue which is fairly symmetric. There is no interval development of dominant mass, architectural distortion, or grouped microcalcification typical of malignancy. There has been no change in the appearance of the mammogram from the prior studies. 3-D tomosynthesis shows no additional findings. Assessment: BI-RADS/ACR category 1 mammogram. Negative Mammogram. Recommendation Breast MRI of both breasts in 6 months. Routine screening mammogram of both breasts in 1 year (for women over age 40). This patient's Lifetime Breast Cancer RIsk is estimated at 33.1 %. Annual screening Breast MRI scanniing is recommended for patient's whose lifetime risk assessment is over 20%. This mammogram was interpreted with the aid of an FDA-approved computer-aided dectection system. Electronically Signed By: Tino Rahman MD 12/20/19 0984
== END ==
LOC: M WHC 15:31
PROVIDERS: ATTEND Nurse Practitioner Family
DX: Z12.31 Encounter for screening mammogram for malignant neoplasm of breast (principal); Z80.3 Family history of malignant neoplasm of breast

== ENCOUNTER → 2020-01-09 | Outpatient (CLI) | payer BC ==
[2020-01-09 19:51] LABS: BASO % 0.5 % (0.0-1.0); EOS # 0.3 10^3/uL (0.0-0.5); EOS % 4.6 % (0.0-3.0); HEMATOCRIT 33.4 % (36.0-47.0); HEMOGLOBIN 10.5 g/dl (12.0-15.5); LYMPH # 2.2 10^3/uL (1.5-5.0); LYMPH % 35.6 % (24.0-44.0); MEAN CORPUSCULAR HEMOGLOBIN 26.8 pg (27.0-33.0); MEAN CORPUSCULAR HGB CONC 31.4 g/dl (32.0-36.5); MEAN CORPUSCULAR VOLUME 85.2 fl (80.0-96.0); MONO # 0.6 10^3/uL (0.0-0.8); MONO % 10.1 % (0.0-5.0); NEUTROPHILS # 3.1 10^3/uL (1.5-8.5); NEUTROPHILS % 48.9 % (36.0-66.0); PLATELET COUNT, AUTOMATED 239 10^3/uL (150-450); RED BLOOD COUNT 3.92 10^6/uL (4.00-5.40); WHITE BLOOD COUNT 6.3 10^3/uL (4.0-10.0)
[2020-01-09 19:55] LABS: ALBUMIN 3.9 GM/DL (3.2-5.2); ALT/SGPT 19 U/L (12-78); APPEARANCE, URINE HAZY (CLEAR); BACTERIA, URINE AUTO NEGATIVE (NEGATIVE); BILIRUBIN, URINE AUTO NEGATIVE (NEGATIVE); BILIRUBIN,TOTAL 0.3 MG/DL (0.2-1.0); BLOOD UREA NITROGEN 9 MG/DL (7-18); BLOOD, URINE BLOOD NEGATIVE (NEGATIVE); C REACTIVE PROTEIN QUANTITATIV < 0.30 MG/DL (0.00-0.30); CALCIUM LEVEL 8.8 MG/DL (8.5-10.1); CARBON DIOXIDE LEVEL 27 MEQ/L (21-32); CHLORIDE LEVEL 105 MEQ/L (98-107); COLOR, URINE YELLOW (YELLOW); CREATININE FOR GFR 0.93 MG/DL (0.55-1.30); GLOMERULAR FILTRATION RATE > 60.0 (>58); GLUCOSE, FASTING 89 MG/DL (70-100); GLUCOSE, URINE (UA) AUTO NEGATIVE (NEGATIVE); KETONE, URINE AUTO NEGATIVE (NEGATIVE); LEUKOCYTE ESTERASE, URINE AUTO NEGATIVE (NEGATIVE); MUCUS, URINE SMALL (NEGATIVE); NITRITE, URINE AUTO NEGATIVE (NEGATIVE); POTASSIUM SERUM 4.5 MEQ/L (3.5-5.1); PROTEIN, URINE AUTO NEGATIVE (NEGATIVE); RBC, URINE AUTO 3 /HPF (0-3); SODIUM LEVEL 139 MEQ/L (136-145); SQUAMOUS EPITHELIAL CELL UR AU 0 /HPF (0-6); TOTAL PROTEIN 7.1 GM/DL (6.4-8.2); UROBILINOGEN, URINE AUTO 0.2 mg/dL (0.0-2.0); WBC, URINE AUTO 0 /HPF (0-3)
[2020-01-09 19:57] LABS: HCG, SERUM QUALITATIVE NEGATIVE (NEGATIVE)
[2020-01-09 20:00] LABS: INR 0.97; PROTHROMBIN TIME 12.6 SECONDS (11.8-14.0)
[2020-01-09 20:01] LABS: PARTIAL THROMBOPLASTIN TIME 34.4 SECONDS (25.0-38.4)
[2020-01-09 20:04] LABS: D-DIMER QUANT < 270 ng/ml (<500)
[2020-01-09 20:17] LABS: ERYTHROCYTE SEDIMENTATION RATE 9 mm/hr (0-20)
== END ==
LOC: M WUC 18:08
DX: H53.121 Transient visual loss, right eye (principal); I67.1 Cerebral aneurysm, nonruptured; R51 Headache

== ENCOUNTER 2020-04-19 08:08 | Outpatient (CLI) | payer BC ==
[2020-04-19] VITALS (7 sets, daily range): BP systolic 89–116; BP diastolic 44–61
[~2020-04-19] VITALS: Ht 162.6 cm; Wt 68.2 kg
[~2020-04-19 08:08] MED LIST changes: -LAMO25TA4; +LAMO25TA4 PO
[2020-04-19] MEDS ORDERED: diphenhydrAMINE 25MG CAP PO ONE (08:30)
[2020-04-19] MEDS ORDERED: ACETAMINOPHEN 500 MG TAB PO ONE (08:30)
[2020-04-19] MEDS ORDERED: IRON SUCROSE 225 MG in NS 225 ML IV ONE (08:30)
[2020-04-19] MEDS ORDERED: IRON SUCROSE 25 MG in NS 25 ML IV ONE (08:30)
[2020-04-19] MEDS ORDERED: YAZ1TAB PO (08:36)
== END 2020-04-19 13:45 | disposition home or self-care (01) ==
LOC: M INFU 08:08
PROVIDERS: ATTEND Physician Assistant
DX: D50.9 Iron deficiency anemia, unspecified (principal); Z88.0 Allergy status to penicillin; Z88.8 Allergy status to other drugs, medicaments and biological substances
CPT/HCPCS: 96365; 96366; 96376; J1756

== ENCOUNTER → 2020-04-24 | Outpatient (CLI) | payer BC ==
[~2020-04-24] MED LIST changes: +YAZ1TAB PO
[2020-04-24 16:17] LABS: BASO % 0.2 % (0.0-1.0); EOS # 0.3 10^3/uL (0.0-0.5); EOS % 3.2 % (0.0-3.0); HEMATOCRIT 30.7 % (36.0-47.0); HEMOGLOBIN 9.3 g/dl (12.0-15.5); LYMPH # 2.2 10^3/uL (1.5-5.0); LYMPH % 24.7 % (24.0-44.0); MEAN CORPUSCULAR HEMOGLOBIN 24.2 pg (27.0-33.0); MEAN CORPUSCULAR HGB CONC 30.3 g/dl (32.0-36.5); MEAN CORPUSCULAR VOLUME 79.7 fl (80.0-96.0); MONO # 0.8 10^3/uL (0.0-0.8); MONO % 8.9 % (0.0-5.0); NEUTROPHILS # 5.6 10^3/uL (1.5-8.5); NEUTROPHILS % 62.6 % (36.0-66.0); PLATELET COUNT, AUTOMATED 288 10^3/uL (150-450); RED BLOOD COUNT 3.85 10^6/uL (4.00-5.40)
[2020-04-24 16:51] LABS: MONO SCRN NEGATIVE (NEGATIVE)
[2020-04-24 16:52] LABS: BLOOD UREA NITROGEN 16 MG/DL (7-18); CALCIUM LEVEL 8.8 MG/DL (8.5-10.1); CARBON DIOXIDE LEVEL 27 MEQ/L (21-32); CHLORIDE LEVEL 104 MEQ/L (98-107); GLOMERULAR FILTRATION RATE 56.7 (>58); GLUCOSE, FASTING 77 MG/DL (70-100); POTASSIUM SERUM 4.6 MEQ/L (3.5-5.1); SODIUM LEVEL 138 MEQ/L (136-145)
[2020-04-24 16:53] LABS: ALBUMIN 3.2 GM/DL (3.2-5.2); ALT/SGPT 21 U/L (12-78); BILIRUBIN,TOTAL 0.3 MG/DL (0.2-1.0); TOTAL PROTEIN 6.7 GM/DL (6.4-8.2)
== END ==
LOC: M WUC 14:30
PROVIDERS: ATTEND Family Medicine
DX: R59.1 Generalized enlarged lymph nodes (principal)

== ENCOUNTER → 2020-05-14 | Outpatient (CLI) | payer BC ==
--- NOTE | 2020-05-14 12:31 | REP ---
Clinical: adenopathy. Technique: Real time spears scale and color evaluation using linear high frequency transducer. Findings: Right posterior auricular lymph node measures 9 x 3 x 7 mm and right cervical chain lymph nodes measure up to 12 x 6 x 7 mm. Left posterior auricular lymph node measures 6 x 3 x 7 mm and left cervical chain lymph nodes measure up to 11 x 5 x 11 mm. Impression: Relatively symmetric normal appearing bilateral lymph nodes.
== END ==
LOC: M PLAIMG 09:54
PROVIDERS: ATTEND Physician Assistant
DX: R59.0 Localized enlarged lymph nodes (principal)

== ENCOUNTER → 2020-05-14 | Outpatient (CLI) | payer BC ==
[2020-05-14 13:30] LABS: BASO % 0.2 % (0.0-1.0); EOS # 0.2 10^3/uL (0.0-0.5); EOS % 2.1 % (0.0-3.0); HEMATOCRIT 33.1 % (36.0-47.0); HEMOGLOBIN 10.4 g/dl (12.0-15.5); LYMPH # 1.7 10^3/uL (1.5-5.0); LYMPH % 20.8 % (24.0-44.0); MEAN CORPUSCULAR HEMOGLOBIN 25.6 pg (27.0-33.0); MEAN CORPUSCULAR HGB CONC 31.4 g/dl (32.0-36.5); MEAN CORPUSCULAR VOLUME 81.5 fl (80.0-96.0); MONO # 0.6 10^3/uL (0.0-0.8); MONO % 6.9 % (0.0-5.0); NEUTROPHILS # 5.6 10^3/uL (1.5-8.5); NEUTROPHILS % 69.8 % (36.0-66.0); PLATELET COUNT, AUTOMATED 261 10^3/uL (150-450); RED BLOOD COUNT 4.06 10^6/uL (4.00-5.40); WHITE BLOOD COUNT 8.1 10^3/uL (4.0-10.0)
[2020-05-14 13:33] LABS: PERCENT SATURATION 7.5 % (13.2-45.0)
== END ==
LOC: M PLALAB 10:51
PROVIDERS: ATTEND Physician Assistant
DX: D50.9 Iron deficiency anemia, unspecified (principal)

== ENCOUNTER → 2020-05-16 | Outpatient (CLI) | payer BC ==
--- NOTE | 2020-05-16 13:03 | REP ---
CT neck soft tissues: 05/16/2020. Indication: Neck swelling. Lymphadenopathy. Technique: Unenhanced axial CT images of the neck soft tissues were obtained with coronal and sagittal reconstructions provided. Comparison: 11/21/2019. Findings: Evaluation of the neck soft tissues without IV iodinated contrast is suboptimal. No abnormal solid soft tissue masses, abnormal fluid collections or cervical lymphadenopathy are detected. The airway is patent. No acute ocular, intraorbital or intracranial abnormalities are detected. No significant air-fluid levels are present within the visualized paranasal sinuses/mastoid air cells. The visualized lungs are clear. Impression: No acute neck soft tissue pathology detected. Electronically Signed by Dakotah Thornton DO 05/16/2020 12:54 P
== END ==
LOC: M RAD 12:12
PROVIDERS: ATTEND Physician Assistant
DX: R59.0 Localized enlarged lymph nodes (principal)

== ENCOUNTER 2020-05-29 08:05 | Outpatient (CLI) | payer BC ==
[~2020-05-29] VITALS: Ht 162.6 cm; Wt 68.2 kg
[2020-05-29 08:10] VITALS: BP 128/76
[2020-05-29] MEDS ORDERED: ACETAMINOPHEN 500 MG TAB PO ONE (08:15)
[2020-05-29] MEDS ORDERED: diphenhydrAMINE 25MG CAP PO ONE (08:15)
[2020-05-29] MEDS ORDERED: NS IV ONE (08:30)
[2020-05-29] MEDS ORDERED: IRON SUCROSE IV ONE (08:30)
[2020-05-29] MEDS ORDERED: IRON SUCROSE 25 MG in NS 25 ML IV ONE (08:30)
[2020-05-29 10:15] VITALS: BP 110/62
[2020-05-29 11:30] VITALS: BP 112/68
[2020-05-29 12:40] VITALS: BP 109/66
[2020-05-29 13:00] VITALS: BP 117/66
[2020-08-28] MEDS ORDERED: HYDR-3713 PO (10:16)
[2020-08-28] MEDS ORDERED: MOTR200T44 PO (10:16)
[2020-08-28] MEDS ORDERED: PSEU-52 PO (10:16)
[2020-08-28] MEDS ORDERED: HYDR-643 PO (10:16)
[2020-08-28] MEDS ORDERED: VITA200012 PO (10:22)
[2020-08-28] MEDS ORDERED: ESSE250T PO (10:22)
[2020-08-28] MEDS ORDERED: ZOFR8TAB24 PO (10:22)
[2020-08-28] MEDS ORDERED: CYAN500T8 PO (10:22)
== END 2020-05-29 13:00 | disposition home or self-care (01) ==
LOC: M INFU 08:05
PROVIDERS: ATTEND Physician Assistant
DX: D50.9 Iron deficiency anemia, unspecified (principal)
CPT/HCPCS: 96365; 96366; J1756

== ENCOUNTER → 2020-06-14 | Outpatient (REF) | payer BC ==
[~2020-06-14] MED LIST changes: +CYAN500T8 PO; +ESSE250T PO; +HYDR-3713 PO; +HYDR-643 PO; +MOTR200T44 PO; +PSEU-52 PO; +VITA200012 PO; +ZOFR8TAB24 PO
[2020-07-13 03:04] LABS: BASO % 0.3 % (0.0-1.0); EOS # 0.3 10^3/uL (0.0-0.5); EOS % 2.8 % (0.0-3.0); HEMOGLOBIN 10.5 g/dl (12.0-15.5); LYMPH # 2.3 10^3/uL (1.5-5.0); MEAN CORPUSCULAR HEMOGLOBIN 25.6 pg (27.0-33.0); MEAN CORPUSCULAR HGB CONC 30.9 g/dl (32.0-36.5); MEAN CORPUSCULAR VOLUME 82.9 fl (80.0-96.0); MONO # 0.9 10^3/uL (0.0-0.8); NEUTROPHILS # 5.4 10^3/uL (1.5-8.5); NEUTROPHILS % 60.4 % (36.0-66.0); PLATELET COUNT, AUTOMATED 261 10^3/uL (150-450); WHITE BLOOD COUNT 8.9 10^3/uL (4.0-10.0)
[2020-08-01 14:04] LABS: FERRITIN 58 NG/ML (8-252); IRON (FE) 56 UG/DL (50-170); PERCENT SATURATION 13.2 % (13.2-45.0); TOTAL 25(OH) VITAMIN D 37.6 NG/ML (30.0-100.0); TOTAL IRON BINDING CAPACITY 424 UG/DL (250-450)
== END ==
LOC: M LABWUC 12:25
PROVIDERS: ATTEND Physician Assistant
DX: D50.9 Iron deficiency anemia, unspecified (principal); E78.2 Mixed hyperlipidemia; E55.9 Vitamin D deficiency, unspecified

== ENCOUNTER → 2020-06-27 | Outpatient (REF) | payer BC ==
[2020-08-01 07:30] LABS: BASO % 0.3 % (0.0-1.0); EOS # 0.2 10^3/uL (0.0-0.5); EOS % 1.7 % (0.0-3.0); HEMATOCRIT 40.8 % (36.0-47.0); HEMOGLOBIN 12.4 g/dl (12.0-15.5); LYMPH # 3.8 10^3/uL (1.5-5.0); LYMPH % 33.5 % (24.0-44.0); MEAN CORPUSCULAR HEMOGLOBIN 26.3 pg (27.0-33.0); MEAN CORPUSCULAR HGB CONC 30.4 g/dl (32.0-36.5); MEAN CORPUSCULAR VOLUME 86.4 fl (80.0-96.0); MONO % 9.1 % (0.0-5.0); NEUTROPHILS # 6.3 10^3/uL (1.5-8.5); NEUTROPHILS % 54.7 % (36.0-66.0); PLATELET COUNT, AUTOMATED 304 10^3/uL (150-450); RED BLOOD COUNT 4.72 10^6/uL (4.00-5.40); WHITE BLOOD COUNT 11.5 10^3/uL (4.0-10.0)
[2020-08-04 14:38] LABS: Lyme Disease IgG/IgM Antibodie See Separate Report
[2020-08-12 09:02] LABS: ALBUMIN 3.2 GM/DL (3.2-5.2); ALT/SGPT 19 U/L (12-78); BILIRUBIN,TOTAL 0.3 MG/DL (0.2-1.0); BLOOD UREA NITROGEN 14 MG/DL (7-18); CALCIUM LEVEL 8.8 MG/DL (8.5-10.1); CARBON DIOXIDE LEVEL 29 MEQ/L (21-32); CHLORIDE LEVEL 105 MEQ/L (98-107); CREATININE FOR GFR 1.03 MG/DL (0.55-1.30); FREE T4 1.26 NG/DL (0.76-1.46); GLOMERULAR FILTRATION RATE > 60.0 (>58); GLUCOSE, FASTING 111 MG/DL (70-100); MAGNESIUM LEVEL 2.2 MG/DL (1.8-2.4); POTASSIUM SERUM 4.2 MEQ/L (3.5-5.1); SODIUM LEVEL 141 MEQ/L (136-145); TOTAL PROTEIN 6.8 GM/DL (6.4-8.2)
== END ==
LOC: M WUC 15:14
PROVIDERS: ATTEND Physician Assistant
DX: R53.83 Other fatigue (principal)

== ENCOUNTER → 2020-07-04 | Outpatient (CLI) | payer BC | LOC: M WUC 14:41 | PROVIDERS: ATTEND Internal Medicine Cardiovascular Disease | DX: R06.02 Shortness of breath (principal); R00.0 Tachycardia, unspecified ==

== ENCOUNTER → 2020-07-05 | Outpatient (CLI) | payer BC ==
[~2020-07-05] MED LIST changes: +ISOVUE-370 76% 100ML VIAL As Ordered ONE
--- NOTE | 2020-07-05 12:48 | REPVR ---
PROCEDURE INFORMATION: Exam: CT Angiography Chest With Contrast Exam date and time: 07/05/2020 11:52 AM Age: 49 years old Clinical indication: Abnormal findings of blood chemistry (unspecified). TECHNIQUE: Imaging protocol: Computed tomographic angiography of the chest with intravenous contrast. 3D rendering (Not supervised by radiologist): MIP and/or 3D reconstructed images were created by the technologist. Radiation optimization: All CT scans at this facility use at least one of these dose optimization techniques: automated exposure control; mA and/or kV adjustment per patient size (includes targeted exams where dose is matched to clinical indication); or iterative reconstruction. Contrast material: ISOVUE 370; Contrast volume: 75 ml; Contrast route: INTRAVENOUS (IV); COMPARISON: IN Chest, 2 view PA, Lat 12/18/2019 12:19 PM FINDINGS: Pulmonary arteries: There are no filling defects in the pulmonary arterial tree to suggest a pulmonary embolus. Aorta: Unremarkable. No aortic aneurysm. No aortic dissection. Lungs: Unremarkable. No consolidation. No masses. Pleural space: Unremarkable. No pneumothorax. No pleural effusion. Heart: Unremarkable. No cardiomegaly. No pericardial effusion. Mediastinal space: The esophagus is normal. No mediastinal mass. Lymph nodes: Unremarkable. No enlarged lymph nodes. Bones/joints: Unremarkable. No acute fracture. Benign 2.6 cm hemangioma in the L1 vertebral body. Soft tissues: Unremarkable. Other findings: Included upper abdominal structures appear normal. IMPRESSION: 1. No pulmonary embolus. 2. The lungs are clear. Electronically signed by: Mikhail Back On 07/05/2020 12:48:34 PM
== END ==
LOC: M RAD 11:16
PROVIDERS: ATTEND Physician Assistant
DX: R79.89 Other specified abnormal findings of blood chemistry (principal)
CPT/HCPCS: 71275; Q9967

== ENCOUNTER → 2020-07-10 | Outpatient (CLI) | payer BC ==
[~2020-07-10] MED LIST changes: -ISOVUE-370 76% 100ML VIAL As Ordered ONE
[2020-07-10 14:40] LABS: BASO % 0.2 % (0.0-1.0); EOS % 0.1 % (0.0-3.0); HEMATOCRIT 38.3 % (36.0-47.0); LYMPH # 1.3 10^3/uL (1.5-5.0); LYMPH % 10.9 % (24.0-44.0); MEAN CORPUSCULAR HEMOGLOBIN 26.5 pg (27.0-33.0); MEAN CORPUSCULAR HGB CONC 31.3 g/dl (32.0-36.5); MEAN CORPUSCULAR VOLUME 84.7 fl (80.0-96.0); MONO # 0.5 10^3/uL (0.0-0.8); MONO % 3.9 % (0.0-5.0); NEUTROPHILS # 10.3 10^3/uL (1.5-8.5); NEUTROPHILS % 84.4 % (36.0-66.0); PLATELET COUNT, AUTOMATED 280 10^3/uL (150-450); RED BLOOD COUNT 4.52 10^6/uL (4.00-5.40); WHITE BLOOD COUNT 12.2 10^3/uL (4.0-10.0)
[2020-07-10 14:52] LABS: FREE T4 1.1 NG/DL (0.76-1.46); THYROID STIMULATING HORMONE 1.2 uIU/ML (0.358-3.740); TOTAL T3 115.3 NG/DL (60.0-181.0)
[2020-07-11 16:07] LABS: CARDIOLIPIN IGA ANTIBODY <9 APL U/mL (0-11); CARDIOLIPIN IGG ANTIBODY <9 GPL U/mL (0-14); CARDIOLIPIN IGM ANTIBODY 17 MPL U/mL (0-12)
[2020-07-16 12:28] LABS: PTT LUPUS TYPE ANTICOAG SCREEN 1.2 (0-1.2)
[2020-07-16 12:34] LABS: DRVV CONFIRM 34.9 SEC; LUPUS CONFIRM RATIO 0.9
[2020-07-16 12:37] LABS: NORMALIZED RATIO 1.33 (0.00-1.20)
[2020-07-19 05:07] LABS: HEXAGONAL PHASE PHOSPHOLIPID 0 sec (0-11)
== END ==
LOC: M LAB 13:23
PROVIDERS: ATTEND Internal Medicine Cardiovascular Disease
DX: R25.1 Tremor, unspecified (principal); R23.8 Other skin changes; R00.0 Tachycardia, unspecified

== ENCOUNTER → 2020-08-21 | Outpatient (CLI) | payer BC ==
--- NOTE | 2020-08-27 08:40 | REP ---
SOFT TISSUE ULTRASOUND HEAD AND NECK REGION HISTORY: Lymphadenopathy, postauricular. Mobile, tender left postauricular node at mid mastoid level. FINDINGS: Sonography in the right postauricular region revealed two identifiable lymph nodes. These have echogenic hilar architecture. They are measured as follows: 1.1 x 0.5 x 1.1 and 0.6 x 0.7 x 0.7 cm respectively. These are not pathologically enlarged by size or morphologic criteria. The patient apparently relates lumps in the left neck. Left neck and left postauricular scanning is performed. Normal lymph nodes are seen. In the left neck, there is a 1.1 x 0.2 x 0.9 cm node. There are left postauricular lymph nodes identified as well numbering four in number, measured as follows: 0.6 x 0.4 x 0.6; 0.8 x 0.4 x 0.9; 0.7 x 0.4 x 0.5; and 0.8 x 0.3 x 0.8 cm respectively. These have an unremarkable sonographic appearance. IMPRESSION: Normal size lymph nodes observed bilaterally as above. Not pathologic by size or appearance. Clinical follow-up is advised. If signs and symptoms should progress or fail to regress, follow-up soft tissue neck CT study may be considered. TINAD
== END ==
LOC: M RAD 16:16
PROVIDERS: ATTEND Otolaryngology
DX: R59.0 Localized enlarged lymph nodes (principal)

== ENCOUNTER → 2020-08-28 | Outpatient (CLI) | payer BC ==
[~2020-08-28] MED LIST changes: +LIDOCAINE 1% MDV 20ML VIAL As Ordered ONE; +SODIUM BICARBONATE 8.4% INJ 50MEQ 50 ML VIAL As Ordered ONE
[2020-08-28 11:00] VITALS: BP 113/67
--- NOTE | 2020-09-02 11:12 | REP ---
DATE: 08/28/2020 LYMPH NODE FINE NEEDLE ASPIRATION The patient procedure was performed by SONALI Finnegan under the direct supervision of Dr. Rahman. The patient has a history of multiple bilateral lymph nodes. It was requested that the left cervical lymph node directly posterior to the patients ear be biopsied for further analysis. Given the location of this biopsy, a fine needle aspiration was decided upon versus core biopsy sampling. The risks and benefits of the procedure were explained to the patient and then informed consent was obtained both verbally and written. Directly prior to the start of the procedure, a formal time-out was done in the procedure room. The left cervical lymph node was localized using ultrasound guidance. The skin was prepped and draped in a sterile fashion. Approximately 2 ml of buffered lidocaine was used as a local anesthetic. Using ultrasound guidance, 8 fine needle aspirations were obtained using 25 gauge needles. Four samples were put in CytoLyt for pathology, and the remaining four were put in RPMI to be sent out. The patient tolerated the procedure extremely well and there were no immediate complications. After the appropriate amount of monitored convalescence, the patient was discharged from the department. RAJIV
== END ==
LOC: M IRPRO 09:48
PROVIDERS: ATTEND Otolaryngology
DX: D34 Benign neoplasm of thyroid gland (principal); R59.0 Localized enlarged lymph nodes

== ENCOUNTER → 2020-09-11 | Outpatient (CLI) | payer BC ==
[~2020-09-11] MED LIST changes: -LIDOCAINE 1% MDV 20ML VIAL As Ordered ONE; -SODIUM BICARBONATE 8.4% INJ 50MEQ 50 ML VIAL As Ordered ONE
[2020-09-11 19:54] LABS: HEMATOCRIT 37.7 % (36.0-47.0); HEMOGLOBIN 11.7 g/dl (12.0-15.5); MEAN CORPUSCULAR HEMOGLOBIN 26.1 pg (27.0-33.0); PLATELET COUNT, AUTOMATED 342 10^3/uL (150-450); RED BLOOD COUNT 4.49 10^6/uL (4.00-5.40); WHITE BLOOD COUNT 8.5 10^3/uL (4.0-10.0)
[2020-09-11 20:15] LABS: BLOOD UREA NITROGEN 9 MG/DL (7-18); CARBON DIOXIDE LEVEL 26 MEQ/L (21-32); CHLORIDE LEVEL 101 MEQ/L (98-107); CREATININE FOR GFR 0.96 MG/DL (0.55-1.30); GLOMERULAR FILTRATION RATE > 60.0 (>58); GLUCOSE, FASTING 100 MG/DL (70-100); POTASSIUM SERUM 4.5 MEQ/L (3.5-5.1); SODIUM LEVEL 135 MEQ/L (136-145)
[2020-09-11 20:16] LABS: ALBUMIN 3.2 GM/DL (3.2-5.2); ALT/SGPT 14 U/L (12-78); BILIRUBIN,TOTAL 0.2 MG/DL (0.2-1.0); C REACTIVE PROTEIN QUANTITATIV 0.42 MG/DL (0.00-0.30); CALCIUM LEVEL 8.7 MG/DL (8.5-10.1); TOTAL PROTEIN 6.6 GM/DL (6.4-8.2)
== END ==
LOC: M WUC 16:23
PROVIDERS: ATTEND Internal Medicine Gastroenterology
DX: K50.80 Crohn's disease of both small and large intestine without complications (principal); R19.7 Diarrhea, unspecified; R10.32 Left lower quadrant pain; R10.31 Right lower quadrant pain; R63.5 Abnormal weight gain; R59.9 Enlarged lymph nodes, unspecified

== ENCOUNTER → 2020-09-25 | Outpatient (CLI) | payer BC ==
--- NOTE | 2020-09-27 00:36 | ECWPNPC ---
PATIENT NAME: MICHELLE KNIGHT : 1970 GENDER: FEMALE VISIT DATE: 09/25/2020 DISCHARGE DATE: 09/25/20 1531 VISIT LOCKED DATE TIME: PHYSICIAN: JOCELYNE GOMEZ PHYSICIAN PAGER NO: ACTIVE RESOURCE: JOCELYNE GOMEZ REASON FOR APPOINTMENT 1. NECK HISTORY OF PRESENT ILLNESS GENERAL: 49-YEAR-OLD FEMALE IN FOR INITIAL PAIN CONSULT. SHE RATES HER PAIN CURRENTLY AT A 5 OUT OF 10 AND DESCRIBES IT STIFF AND HURTS. PATIENT HAS HAD NECK PAIN FOR SEVERAL YEARS. SHE DOES ADMIT TO HAVING FACET BLOCKS IN THE PAST WITH GOOD RESULTS. FALL RISK SCREENING: SCREENING :NO FALLS REPORTED IN THE LAST YEAR PAIN SCREENING: PATIENT HAS A COMPLAINT OF ACUTE OR CHRONIC PAIN :YES LOCATION OF PAIN: NECK, RIGHT SHOULDER, HEAD INTENSITY OF PAIN (SCALE OF 1 TO 10):5 WHAT DOES YOUR PAIN FEEL LIKE:TENDER "HURTS, STIFF" DURATION:CONSTANT, AWAKENS FROM SLEEP PAIN IS INCREASED BY:ACTIVITIES PLAN/GOALS/TREATMENT/INTERVENTION/FOLLOW UP:SEE PLAN NURSING NOTE: - - -. PAIN CENTER INTAKE QUESTIONS: DO YOU HAVE A HISTORY OF MRSA? :NO DO YOU TAKE A BLOOD THINNERS? :NO DO YOU HAVE ANY BLEEDING DISORDERS? :NO ANY NEW NUMBNESS OR WEAKNESS IN YOUR LEGS OR ARMS? :NO ANY PACEMAKER,DEFIBRILLATOR, OR DORSAL COLUMN STIMULATOR? :NO DO YOU HAVE ANY RASHES OR OPEN SORES? :NO ARE YOU ALLERGIC TO IV DYE? :NO ARE YOU DIABETIC? :NO ANY NEW PROBLEMS WITH YOUR MEDICATIONS? :NO HAVE YOU RECEIVED A VACCINE IN THE PAST 30 DAYS? :NO DO YOU PLAN TO RECEIVE A VACCINE IN THE NEXT 21 DAYS? :NO DO YOU NEED ANY PRESCRIPTION? :NO DO YOU TAKE ANY IMMUNOSUPPRESSIVE MEDICATIONS? :YES MERCAPTOPURINE (6-MP) CURRENT MEDICATIONS TAKING IBUPROFEN 800 MG TABLET 1 TABLET WITH FOOD OR MILK NEEDED ORALLY THREE TIMES A DAY TAKING ZOFRAN 8 MG TABLET 1 TAB(S) ORALLY NEEDED FOR NAUSEA TAKING IMITREX STATDOSE REFILL 6 MG/0.5ML SOLUTION 1 INJECTION SUBCUTANEOUS NEEDED TAKING MAGNESIUM OXIDE 400 MG TABLET 1 TAB ORALLY TWICE DAILY TAKING PROTONIX 40 MG TABLET DELAYED RELEASE 2 TABLETS ORALLY TWICE DAILY TAKING FLONASE 50 MCG/DOSE SUSPENSION 1 SPRAY IN EACH NOSTRIL NASALLY ONCE A DAY NEEDED TAKING ASPIR-81 81 MG TABLET DELAYED RELEASE 1 TABLET ORALLY ONCE A DAY TAKING GUMMIES/DHA & FA 0.4-32.5 MG TABLET CHEWABLE ORALLY TAKING SUDAFED 30 MG TABLET 1 TABLET NEEDED ORALLY EVERY 6 HRS TAKING VITAMIN D3 2000 UNIT CAPSULE 1 CAPSULE ORALLY ONCE A DAY TAKING BOTOX 100 UNIT SOLUTION RECONSTITUTED INJECTION , NOTES: 32 INJECTIONS FOR MIGRAINE TAKING NAPROSYN 500 MG TABLET 1 TABLET WITH FOOD OR MILK NEEDED ORALLY EVERY 12 HRS TAKING VITAMIN B2 , NOTES: 400MG BID TAKING LAMOTRIGINE 25 MG TABLET 2 TABLETS ORALLY ONCE A DAY TAKING SUMATRIPTAN SUCCINATE 100 MG TABLET ORAL TAKING HYOSCYAMINE SULFATE 0.125 MG TABLET ORAL TAKING MAY HAVE IRON INJECTIONS ASDIR TAKING FUROSEMIDE 20 MG TABLET 1 TABLET ORALLY ONCE A DAY TAKING ZOLOFT 100 MG TABLET 1 TABLET ORALLY ONCE A DAY TAKING FRANK 3-0.02 MG TABLET 1 TABLET ORALLY ONCE A DAY TAKING GABAPENTIN TAKING HYDROXYZINE HCL 50 MG TABLET 1-2 TABLETS NEEDED ORALLY THREE TIMES A DAY NEEDED TAKING HYDROCODONE-ACETAMINOPHEN 5-325 MG TABLET 1 TABLET NEEDED ORALLY TWICE DAILY FOR PAIN (MDD: 2) TAKING MERCAPTOPURINE 50 MG TABLET DIRECTED ORALLY TAKING HYOSCYAMINE 0.375 MG CAPSULE EXTENDED RELEASE 12 HOUR DIRECTED ORALLY TAKING LINZESS 72 MCG CAPSULE 1 CAPSULE AT LEAST 30 MINUTES BEFORE THE FIRST MEAL OF THE DAY ON AN EMPTY STOMACH ORALLY ONCE A DAY TAKING SCOPOLAMINE 1 MG/3DAYS PATCH 72 HOUR 1 PATCH TO SKIN BEHIND THE EAR NEEDED TRANSDERMAL NOT-TAKING HUMIRA PEN 40 MG/0.4ML PEN-INJECTOR KIT SUBCUTANEOUS , NOTES: ALLERGY: EDEMA, GENERALIZED WEAKNESS, PAIN NOT-TAKING LEVOFLOXACIN 500 MG TABLET 1 TABLET ORALLY ONCE A DAY NOT-TAKING CARISOPRODOL 350 MG TABLET 1 TABLET NEEDED ORALLY ONCE AT BEDTIME NOT-TAKING PREDNISONE 50 MG TABLET ORAL NOT-TAKING OXYCODONE-ACETAMINOPHEN 5-325 MG TABLET ORAL NOT-TAKING HUMIR[facility] CROHNS START 80 MG/0.8ML & 40MG/0.4ML PREFILLED SYRINGE KIT SUBCUTANEOUS 40MG MAINTENANCE DOSE NOT-TAKING FRIEDA ALLERGY 180 MG TABLET 1 TABLET NEEDED ORALLY ONCE A DAY NOT-TAKING ISABEL-BE 0.35 MG TABLET 1 TABLET ORALLY ONCE A DAY NOT-TAKING TROKENDI XR 200 MG CAPSULE EXTENDED RELEASE 24 HOUR 1 CAPSULE ORALLY ONCE A DAY NOT-TAKING BACTRIM DS 800-160 MG TABLET 1 TABLET ORALLY TWICE A DAY MEDICATION LIST REVIEWED AND RECONCILED WITH THE PATIENT PAST MEDICAL HISTORY GERD MIGRAINE HEADACHE, COMMON TYPE-03/2011 NORMAL MRI BRAIN X R MAXILLARY SINUSITIS, ACUTE ENDOMETRIOSIS CROHN'S DISEASE-S/P ILEOCECTOMY IN 2004, H/O SEVERE NEUTROPENIA C 6- COLONOSCOPY INCREASED ULCERS AT SURGICAL SITE-ALI WEAKNESS IN ARMS IRRITABLE BOWEL SYNDROME ANEMIA 2 TO B12, FOLATE AND IRON DEFICIENCY VITAMIN D DEFICIENCY ALLERGIC RHINITIS CHRONIC PARACERVICAL SPRAIN-05/2011 MRI C C5/6 SLIGHT STABLE BULGE, C6/7 MILD R PARACENTRAL BULGE ANEURYSM RIGHT BRAIN 1.2 MM 2015 UNSPECIFIED VITAMIN D DEFICIENCY ALLERGIC RHINITIS, CAUSE UNSPECIFIED ESOPHAGEAL REFLUX OTHER VITAMIN B12 DEFICIENCY ANEMIA LOSS OF WEIGHT REGIONAL ENTERITIS OF UNSPECIFIED SITE IRRITABLE BOWEL SYNDROME UNSPECIFIED IRON DEFICIENCY ANEMIA RAYNAUD'S SYNDROME FOLATE-DEFICIENCY ANEMIA DEGENERATION OF CERVICAL INTERVERTEBRAL DISC TIA [place]RI[place] MY RISK GENETIC TEST NEGATIVE VALENTINA MUTATION AND UNCERTAIN VARIANT BOOGIE ACHARYA SCORE 30.5 % BUBBLE STUDY 02/2020- PFO BRAIN ANEURISM 11/19/2019 SMALL ALLERGIES REGLAN: FEELS LIKE I WANT TO JUMP OUT OF MY SKIN - SIDE EFFECTS AMOXICILLIN: HIVES - ALLERGY SKELAXIN: DIFFUSE EDEMA - ALLERGY HUMIRA: EDEMA, GENERALIZED WEAKNESS/PAIN - ALLERGY SURGICAL HISTORY PILONIDAL CYST AGE 21 RT OOPHORECTOMY AND CYSTECTOMY TONSILLECTOMY ADNOIDECTOMY TUBES IN EAR BOWEL RESECTION WITH APPENDECTOMY-SM. INTESTINE 3" AND ILIUM- DR JANENE HANNON 04/2005 COLPOSCOPY EGD, COLONOSCOPY, SMALL BOWEL F/T 2013 CEREBRAL ANGIOGRAM 11/2016 CEREBRAL ANGIOGRAM/ BUBBLE STUDY 01/2020 FAMILY HISTORY FATHER: ALIVE 69 YRS, MIGRAINE H/A, ARTHRITIS MOTHER: ALIVE 69 YRS, HEART DISEASE, MITRAL VALVE REGURGITATION, BREAST CANCER, DX AT 65, RECENTLY DIAGNOSED SO UNAWARE OF [place] SIBLINGS: ALIVE 39 YRS, MIGRAINE H/A DAUGHTER(S): ALIVE 18 YRS, GENERALIZED EPILEPSY, OFF MEDS; ASTHMA HX W/RESCUE MED ONLY, LEARNING DISABILITY PATERNAL GRAND FATHER: , PROSTATE WITH METS TO BONE CANCER PATERNAL GRAND MOTHER: , BRONCHIAL TREE CANCER, RADIATION INOPERABLE MATERNAL GRAND FATHER: , AMI MATERNAL GRAND MOTHER: , PARKINSON PATERNAL AUNT: LUNG CANCER 1 SISTER(S) - HEALTHY. 1DAUGHTER(S) . ONE MATERNAL AUNT, AT AGE 49 , BREAST CANCER, , BILATERAL MASTECTOMY W/CHEMO, RECONSTRUCTIVE SURGERY. ANOTHER MATERNAL AUNT, MID FIFTIES BREAST CANCER , UNILATERAL MASTECTOMY W/CHEMO. PATERNAL GREAT UNCLE WITH COLON CANCER. PATERNAL GREAT AUNT WITH BREAST CANCER.MATERNAL COUSIN BREAST CANCER AT 40 BRCA NEG. SOCIAL HISTORY GENERAL: TOBACCO USE ARE YOU A:NONSMOKER NEVER SMOKER LATEX QUESTIONNAIRE LATEX ALLERGY : HAVE YOU EVER DEVELOPED ANY TYPE OF REACTION AFTER HANDLING LATEX PRODUCTS SUCH RUBBER GLOVES, CONDOMS, DIAPHRAGMS, BALLOONS, SOCKS, OR UNDERWEAR?NO LATEX ALLERGY : HAVE YOU EVER DEVELOPED ANY TYPE OF REACTION DURING OR AFTER DENTAL APPOINTMENT, VAGINAL/RECTAL EXAMINATION, SURGICAL PROCEDURE, OR ANY OTHER EXPOSURE?NO LATEX RISK : HAVE YOU EVER HAD ANY DIFFICULTY BREATHING OR HIVES AFTER EATING OR HANDLING ANY FRUITS, OR VEGETABLES; SUCH KIWI, BANANAS, STONE FRUITS, OR CHESTNUTSNO LATEX RISK : DO YOU HAVE A PREVIOUS PERSONAL HISTORY OF MORE THAN NINE SURGERIES, SPINA BIFIDA, OR REPEATED CATHERIZATIONS? YES - PLEASE INDICATE : > 9 SURGERIES LATEX RISK : ARE YOU FREQUENTLY EXPOSED TO LATEX PRODUCTS IN YOUR OCCUPATION?NO DATE ASKED : 09/25/2020 ALCOHOL SCREENING DID YOU HAVE A DRINK CONTAINING ALCOHOL IN THE PAST YEAR?YES HOW OFTEN DID YOU HAVE SIX OR MORE DRINKS ON ONE OCCASION IN THE PAST YEAR?NEVER (0 POINTS) HOW MANY DRINKS DID YOU HAVE ON A TYPICAL DAY WHEN YOU WERE DRINKING IN THE PAST YEAR?1 OR 2 (0 POINTS) HOW OFTEN DID YOU HAVE A DRINK CONTAINING ALCOHOL IN THE PAST YEAR?TWO TO FOUR TIMES A MONTH (2 POINTS) POINTS2 INTERPRETATIONNEGATIVE RECREATIONAL DRUG USE DENIES. CAFFEINE 1 DAILY, OCCASIONAL SODA. SEXUAL HX HAD SEX IN THE LAST 12 MONTHS (VAGINAL, ORAL, OR ANAL)?YES WITHMEN ONLY PREVENTION STRATEGIES DISCUSSED:CONDOMS LMP:09/14/16 HAVE YOU EVER HAD AN STD?NO HIV / HEP-C SCREENING HIV TEST OFFERED TO PATIENT:YES DATE OFFERED:07/16/2017 TEST ACCEPTED:NO REASON:PATIENT DECLINED JUDAISM [id number] MU-ISM LANGUAGE CZECH, BARBADIAN SOME. EDUCATION LEVEL OF EDUCATION:COLLEGE LEARNING BARRIERS / SPECIAL NEEDS CHANGE FROM LAST VISIT?NO BARRIERS TO LEARNING?NO HEARING IMPAIRED?NO VISION IMPAIRED?NO COGNITIVELY IMPAIRED?NO READINESS TO LEARN?YES LEARNING PREFERENCES?NO LEARNING CAPABILITIES PRESENT?YES EMOTIONAL BARRIERS?NO SPECIAL DEVICES?NO PCI SECURITY CONSULTANT NEEDED?NO DOMESTIC VIOLENCE DENIES, 06/25/14 HITS=4. 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 DIET: MINIMAL. EATS LOW RESIDUE DIET. RICE, PASTA. YOGURT. CHICKEN. AVOIDS FRIED FOODS.. EXERCISE: RIDES BIKE, WALKS, RUNS TOLERATED. SWIMS. MARITAL STATUS: . OTHERS AT HOME: DAUGHTER. ADVANCE DIRECTIVE ADVANCE DIRECTIVE DISCUSSED WITH PATIENT:YES WORKING ON UPDATING ADVANCED DIRECTIVES. HOSPITALIZATION/MAJOR DIAGNOSTIC PROCEDURE SURGERY RELATED REVIEW OF SYSTEMS CONSTITUTIONAL: ANY RECENT FEVER NO . CHILLS NO . WEIGHT CHANGE OF UNKNOWN REASONS NO . MUSCULOSKELETAL: ANY UNUSUAL JOINT PAIN OR SWELLING NOT MENTIONED NO . SYSTEMIC LUPUS NO . ANY NEUROMUSCULAR DISORDER NOT MENTIONED NO . LYME DISEASE NO . GASTROENTEROLOGY: ANY NEW CHANGE IN BOWEL CONTROL? NO . HISTORY OF LIVER DISORDER NOT MENTIONED NO . HISTORY OF UNUSUAL ABDOMINAL PAIN OR CRAMPING NOT MENTIONED NO . NO CONSTIPATION. GENITOURINARY: ANY NEW CHANGE IN BLADDER CONTROL? NO . ANY RENAL/KIDNEY CONDITON NOT MENTIONED NO . NEUROLOGY: HISTORY OF TBI NOT MENTIONED NO . OTHER NEW NUMBNESS OR PAIN PATTERNS NOT MENTIONED NO . NEW ONSET DIZZINESS OR NEUROLOGICAL CHANGES NOT MENTIONED NO . HISTORY OF SEVERE HEADACHES NOT MENTIONED NO . HISTORY OF STROKE OR NEUROLOGICAL DISORDER NOT MENTIONED NO . CARDIOLOGY: HEART SURGERY NO . CONGESTIVE HEART FAILURE/FLUID OVERLOAD NOT MENTIONED NO . HISTORY OF CHEST PAIN,IRREGULAR HEART BEAT NOT MENTIONED NO . RESPIRATORY: SHORTNESS OF BREATH ON EXERTION, WHEEZES, UNUSUAL COUGH NOT MENTIONED NO . ENDOCRINOLOGY: ADRENAL GLAND OR THYROID DISORDERS NOT MENTIONED NO . UNUSUAL URINATION, DIZZINESS OR LETHARGY NOT MENTIONED NO . VITAL SIGNS WT 164.2 LBS, HT 64.5 IN, BMI 27.75 INDEX, BP 100/69 MM HG, HR 104 /MIN, RR 18 /MIN, TEMP 97.6 F, OXYGEN SAT % 96%, SAFE IN ENV? (Y/N) YES, NA INITIALS AW 1451, REVIEWED BY: MTM. BANGURA FOAM FABRICATOR. EXAMINATION GENERAL EXAMINATION: GENERALNO ACUTE DISTRESS, WELL NOURISHED AND HYDRATED. PSYCHAPPROPRIATE MOOD AND AFFECT . NECK:POINT TENDER ALONG RIGHT-SIDED CERVICAL SPINE, SURROUNDING SKIN SHOWS NO ERYTHEMA, ECCHYMOSIS, INCREASED WARMTH, AND/OR SKIN ERUPTIONS NOTED. NEGATIVE SPURLING'S SIGN, PATIENT DOES ENDORSE INCREASED PAIN WHEN ASKED LIFT ARMS AGAINST RESISTANCE . LUNGS:CLEAR TO AUSCULTATION BILATERALLY, NO WHEEZES, RHONCHI, RALES. HEART:NO MURMURS, REGULAR RATE AND RHYTHM. ASSESSMENTS DEGENERATIVE DISC DISEASE, CERVICAL - M50.30 (PRIMARY) TREATMENT DEGENERATIVE DISC DISEASE, CERVICAL [facility] MRI SPINE, CERVICAL WITHOUT [id number] NOTES: 49-YEAR-OLD FEMALE IN FOR INITIAL PAIN CONSULT. GIVEN PRESENTING SYMPTOMS RECOMMENDED MRI FOR FURTHER EVALUATION AND FOLLOW-UP AFTER IMAGING. PATIENT HAS EXPRESSED UNDERSTANDING OF AND WAS IN AGREEMENT WITH TREATMENT PLAN. GIVEN TIME TO ASK QUESTIONS AND EXPRESS CONCERNS. PROCEDURE CODES FA211 ESTABILISHED PATIENT [facility] CHARGE DISPOSITION & COMMUNICATION ELECTRONICALLY SIGNED BY KYLIE JIANG ON 09/26/2020 AT 01:01 PM EST DISCLAIMER : THIS IS A VISIT SUMMARY EXTRACTED FROM THE [employer] CHART. IT IS NOT A COPY OF THE [employer] PROGRESS NOTE. RAJIV
== END ==
LOC: M PAIN 14:30
PROVIDERS: ATTEND Family Medicine
DX: M50.30 Other cervical disc degeneration, unspecified cervical region (principal); K21.9 Gastro-esophageal reflux disease without esophagitis; G43.009 Migraine without aura, not intractable, without status migrainosus; D50.9 Iron deficiency anemia, unspecified; K58.9 Irritable bowel syndrome, unspecified; Z79.82 Long term (current) use of aspirin; Z79.899 Other long term (current) drug therapy; Z88.0 Allergy status to penicillin; Z88.8 Allergy status to other drugs, medicaments and biological substances

== ENCOUNTER → 2020-12-20 | Outpatient (CLI) | payer BC ==
[~2020-12-20] MED LIST changes: +CYAN500T14 PO; -CYAN500T8 PO
== END ==
LOC: M WHC 15:45
PROVIDERS: ATTEND Nurse Practitioner Family
DX: Z12.31 Encounter for screening mammogram for malignant neoplasm of breast (principal)

== ENCOUNTER → 2020-12-20 | Outpatient (REF) | payer BC ==
[2020-12-23 14:44] LABS: CHLAMYDIA DNA AMPLIFICATION NEGATIVE (NEGATIVE); GC DNA AMPLIFICATION NEGATIVE (NEGATIVE)
== END ==
LOC: M SFHCWAGY 10:06
PROVIDERS: ATTEND Nurse Practitioner Family
DX: Z11.3 Encounter for screening for infections with a predominantly sexual mode of transmission (principal)

== ENCOUNTER → 2020-12-25 | Outpatient (REF) | payer BC | LOC: M WUC 09:37 | PROVIDERS: ATTEND Physician Assistant | DX: J02.9 Acute pharyngitis, unspecified (principal) ==

== ENCOUNTER → 2021-01-10 | Outpatient (CLI) | payer BC ==
[2021-01-10 19:13] LABS: HEMATOCRIT 31.6 % (36.0-47.0); HEMOGLOBIN 10.3 g/dl (12.0-15.5); MEAN CORPUSCULAR HEMOGLOBIN 32.7 pg (27.0-33.0); MEAN CORPUSCULAR HGB CONC 32.6 g/dl (32.0-36.5); MEAN CORPUSCULAR VOLUME 100.3 fl (80.0-96.0); PLATELET COUNT, AUTOMATED 237 10^3/uL (150-450); RED BLOOD COUNT 3.15 10^6/uL (4.00-5.40); WHITE BLOOD COUNT 7.2 10^3/uL (4.0-10.0)
[2021-01-10 19:40] LABS: ALBUMIN 3.2 GM/DL (3.2-5.2); ALT/SGPT 18 U/L (12-78); BILIRUBIN,TOTAL 0.2 MG/DL (0.2-1.0); BLOOD UREA NITROGEN 14 MG/DL (7-18); C REACTIVE PROTEIN QUANTITATIV 0.51 MG/DL (0.00-0.30); CALCIUM LEVEL 8.9 MG/DL (8.5-10.1); CARBON DIOXIDE LEVEL 26 MEQ/L (21-32); CHLORIDE LEVEL 109 MEQ/L (98-107); GLOMERULAR FILTRATION RATE > 60.0 (>58); GLUCOSE, FASTING 88 MG/DL (70-100); POTASSIUM SERUM 4.3 MEQ/L (3.5-5.1); SODIUM LEVEL 139 MEQ/L (136-145); TOTAL PROTEIN 6.6 GM/DL (6.4-8.2)
== END ==
LOC: M LAB 18:48
PROVIDERS: ATTEND Internal Medicine Gastroenterology
DX: K50.80 Crohn's disease of both small and large intestine without complications (principal); R10.32 Left lower quadrant pain; R10.31 Right lower quadrant pain; R63.5 Abnormal weight gain

== ENCOUNTER → 2021-01-14 | Outpatient (CLI) | payer BC ==
[2021-01-14 17:02] LABS: ERYTHROCYTE SEDIMENTATION RATE 28 mm/hr (0-20)
[2021-01-14 17:04] LABS: C REACTIVE PROTEIN QUANTITATIV 0.55 MG/DL (0.00-0.30); FERRITIN 8 NG/ML (8-252); FOLATE > 24.0 NG/ML; FREE T4 1.08 NG/DL (0.76-1.46); IRON (FE) 51 UG/DL (50-170); PERCENT SATURATION 12.4 % (13.2-45.0); TOTAL IRON BINDING CAPACITY 412 UG/DL (250-450); VITAMIN B12 LEVEL 363 PG/ML
[2021-01-16 23:12] LABS: ANA (HEP2) Positive (.)
== END ==
LOC: M WUC 11:11
PROVIDERS: ATTEND Physician Assistant
DX: L65.9 Nonscarring hair loss, unspecified (principal); D50.9 Iron deficiency anemia, unspecified; L93.2 Other local lupus erythematosus

== ENCOUNTER 2021-02-09 18:22 | Emergency (ER) | payer OTHER, BC ==
[~2021-02-09] VITALS: Ht 162.6 cm; Wt 73.2 kg
[2021-02-09] MEDS ORDERED: BUSP15TA47 PO (18:38)
--- NOTE | 2021-02-09 19:48 | REPVR ---
PROCEDURE INFORMATION: Exam: XR Left Ankle Exam date and time: 02/09/2021 7:10 PM Age: 50 years old Clinical indication: Pain; Ankle; Left; Additional info: Pain, swelling, trauma TECHNIQUE: Imaging protocol: XR Left ankle. Views: 3 or more views. COMPARISON: No relevant prior studies available. FINDINGS: Bones/joints: Diffuse demineralization of the bones. Small calcaneal spur. No acute fracture. No dislocation. Soft tissues: Normal. IMPRESSION: No acute abnormality. Electronically signed by: Wilfredo Dillard On 02/09/2021 19:48:02 PM
--- NOTE | 2021-02-09 19:51 | REPVR ---
PROCEDURE INFORMATION: Exam: XR Left Foot Exam date and time: 02/09/2021 7:10 PM Age: 50 years old Clinical indication: Pain; Foot; Left; Additional info: Pain, trauma, tender to touch TECHNIQUE: Imaging protocol: XR Left foot. Views: 3 or more views. COMPARISON: No relevant prior studies available. FINDINGS: Bones/joints: Normal. Soft tissues: Normal. IMPRESSION: No acute findings. Electronically signed by: Wilfredo Dillard On 02/09/2021 19:51:52 PM
[2021-02-09] MEDS ORDERED: ANEXSIA, NORCO 7.5MG/325MG TABLET(HYDROCODONE/APAP) PO ONE (20:25)
[2021-02-09] MEDS ORDERED: HYDR-4514 PO (20:26)
[2021-02-09 20:35] VITALS: BP 123/68
== END 2021-02-09 20:36 | disposition home or self-care (01) ==
LOC: M ED 18:22
DX: R22.42 Localized swelling, mass and lump, left lower limb (principal); M77.32 Calcaneal spur, left foot; X50.1XXA Overexertion from prolonged static or awkward postures, initial encounter; Y92.9 Unspecified place or not applicable; Y93.9 Activity, unspecified; Y99.9 Unspecified external cause status; G43.909 Migraine, unspecified, not intractable, without status migrainosus; K21.9 Gastro-esophageal reflux disease without esophagitis; K50.919 Crohn's disease, unspecified, with unspecified complications; Z87.820 Personal history of traumatic brain injury; Z79.3 Long term (current) use of hormonal contraceptives; Z79.899 Other long term (current) drug therapy; Z88.0 Allergy status to penicillin; Z88.8 Allergy status to other drugs, medicaments and biological substances; J30.89 Other allergic rhinitis

== ENCOUNTER → 2021-03-22 | Outpatient (CLI) | payer BC ==
[~2021-03-22] MED LIST changes: +BUSP15TA47 PO; +HYDR-4514 PO
[2021-03-22 12:51] LABS: BASO % 0.3 % (0.0-1.0); EOS # 0.2 10^3/uL (0.0-0.5); EOS % 2.8 % (0.0-3.0); HEMATOCRIT 33.1 % (36.0-47.0); HEMOGLOBIN 10.6 g/dl (12.0-15.5); MEAN CORPUSCULAR HEMOGLOBIN 28.9 pg (27.0-33.0); MEAN CORPUSCULAR VOLUME 90.2 fl (80.0-96.0); MONO # 0.7 10^3/uL (0.0-0.8); MONO % 9.6 % (2.0-8.0); NEUTROPHILS # 3.9 10^3/uL (1.5-8.5); NEUTROPHILS % 57.9 % (36.0-66.0); PLATELET COUNT, AUTOMATED 280 10^3/uL (150-450); RED BLOOD COUNT 3.67 10^6/uL (4.00-5.40); WHITE BLOOD COUNT 6.8 10^3/uL (4.0-10.0)
[2021-03-22 13:32] LABS: THYROID STIMULATING HORMONE 2.25 uIU/ML (0.358-3.740)
== END ==
LOC: M LAB 12:23
PROVIDERS: ATTEND Physician Assistant
DX: D50.9 Iron deficiency anemia, unspecified (principal); E03.9 Hypothyroidism, unspecified

== ENCOUNTER → 2021-04-17 | Outpatient (CLI) | payer BC ==
[2021-04-17 09:31] LABS: HEMATOCRIT 30.6 % (36.0-47.0); HEMOGLOBIN 9.8 g/dl (12.0-15.5); MEAN CORPUSCULAR HEMOGLOBIN 27.8 pg (27.0-33.0); MEAN CORPUSCULAR VOLUME 86.7 fl (80.0-96.0); PLATELET COUNT, AUTOMATED 238 10^3/uL (150-450); RED BLOOD COUNT 3.53 10^6/uL (4.00-5.40); WHITE BLOOD COUNT 8.3 10^3/uL (4.0-10.0)
[2021-04-17 09:59] LABS: ERYTHROCYTE SEDIMENTATION RATE 13 mm/hr (0-20)
[2021-04-17 10:03] LABS: ALT/SGPT 17 U/L (12-78); BILIRUBIN,TOTAL 0.2 MG/DL (0.2-1.0); BLOOD UREA NITROGEN 11 MG/DL (7-18); CALCIUM LEVEL 9.1 MG/DL (8.5-10.1); CARBON DIOXIDE LEVEL 26 MEQ/L (21-32); CHLORIDE LEVEL 104 MEQ/L (98-107); CREATININE FOR GFR 0.91 MG/DL (0.55-1.30); GLOMERULAR FILTRATION RATE > 60.0 (>58); GLUCOSE, FASTING 96 MG/DL (70-100); IRON (FE) 22 UG/DL (50-170); MAGNESIUM LEVEL 1.8 MG/DL (1.8-2.4); PERCENT SATURATION 4.6 % (13.2-45.0); POTASSIUM SERUM 4.3 MEQ/L (3.5-5.1); SODIUM LEVEL 136 MEQ/L (136-145); TOTAL IRON BINDING CAPACITY 474 UG/DL (250-450); TOTAL PROTEIN 6.5 GM/DL (6.4-8.2)
[2021-04-17 10:40] LABS: VITAMIN B12 LEVEL 311 PG/ML (247-911)
== END ==
LOC: M LAB 08:52
PROVIDERS: ATTEND Internal Medicine Gastroenterology
DX: K50.80 Crohn's disease of both small and large intestine without complications (principal); R10.84 Generalized abdominal pain; M25.50 Pain in unspecified joint; R53.83 Other fatigue

== ENCOUNTER 2021-04-21 21:10 | Emergency (ER) | payer BC ==
[~2021-04-21] VITALS: Ht 165.1 cm; Wt 73.4 kg
[2021-04-21] MEDS ORDERED: PRED20TA PO (21:32)
[2021-04-22] MEDS ORDERED: dexameTHASONE 4 MG/ML 1ML VIAL (J1100 PER 1MG) PO ONE (01:05)
[2021-04-22] MEDS ORDERED: LIDOCAINE VISCOUS 2% SOLN 15ML UDC SS ONE (01:25)
[2021-04-22] MEDS ORDERED: DEXA0.5E2 PO (01:49)
[2021-04-22] MEDS ORDERED: LIDO2SOL17 PO (01:49)
[2021-04-22 02:56] VITALS: BP 124/74
== END 2021-04-22 03:01 | disposition home or self-care (01) ==
LOC: M ED 21:10
DX: K12.30 Oral mucositis (ulcerative), unspecified (principal); K50.90 Crohn's disease, unspecified, without complications; M32.9 Systemic lupus erythematosus, unspecified; R51.9 Headache, unspecified; Z86.79 Personal history of other diseases of the circulatory system; Z79.3 Long term (current) use of hormonal contraceptives; Z79.899 Other long term (current) drug therapy; Z88.0 Allergy status to penicillin; Z88.8 Allergy status to other drugs, medicaments and biological substances; J30.2 Other seasonal allergic rhinitis
CPT/HCPCS: 99283; J1100

== ENCOUNTER 2021-05-02 10:28 | Outpatient (CLI) | payer BC ==
[~2021-05-02] VITALS: Ht 162.6 cm; Wt 73.1 kg
[~2021-05-02 10:28] MED LIST changes: +DEXA0.5E2 PO; +IRON SUCROSE 200 MG in NS 100 ML OVER 1 HR IV ONE; +LIDO2SOL17 PO
[2021-05-02 10:35] VITALS: BP 150/86
== END 2021-05-02 12:30 | disposition home or self-care (01) ==
LOC: M INFU 10:28
PROVIDERS: ATTEND Internal Medicine Gastroenterology
DX: D50.9 Iron deficiency anemia, unspecified (principal); K50.80 Crohn's disease of both small and large intestine without complications; Z88.1 Allergy status to other antibiotic agents; Z88.8 Allergy status to other drugs, medicaments and biological substances
CPT/HCPCS: 96365; J1756

== ENCOUNTER → 2021-05-13 | Outpatient (CLI) | payer BC ==
[~2021-05-13] MED LIST changes: -IRON SUCROSE 200 MG in NS 100 ML OVER 1 HR IV ONE
--- NOTE | 2021-05-13 12:08 | REP ---
INDICATION: CHEST HEAVINESS COMPARISON: 12/18/2019 TECHNIQUE: PA and lateral. FINDINGS: The mediastinum and cardiac silhouette are normal. The lung cates are clear and without acute consolidation, effusion, or pneumothorax. The skeletal structures are intact and normal. IMPRESSION: No acute cardiopulmonary process. <Electronically signed by Matthew Peace > 05/13/21 7024
[2021-05-13 13:49] LABS: HEMATOCRIT 36.4 % (36.0-47.0); HEMOGLOBIN 11.4 g/dl (12.0-15.5); MEAN CORPUSCULAR HEMOGLOBIN 28.1 pg (27.0-33.0); MEAN CORPUSCULAR HGB CONC 31.3 g/dl (32.0-36.5); MEAN CORPUSCULAR VOLUME 89.9 fl (80.0-96.0); PLATELET COUNT, AUTOMATED 272 10^3/uL (150-450); RED BLOOD COUNT 4.05 10^6/uL (4.00-5.40); WHITE BLOOD COUNT 16.5 10^3/uL (4.0-10.0)
[2021-05-13 14:24] LABS: ERYTHROCYTE SEDIMENTATION RATE 7 mm/hr (0-20)
[2021-05-13 14:25] LABS: C REACTIVE PROTEIN QUANTITATIV 0.41 MG/DL (0.00-0.30); FREE T4 1.11 NG/DL (0.76-1.46); PERCENT SATURATION 22.8 % (13.2-45.0); THYROID STIMULATING HORMONE 1.99 uIU/ML (0.358-3.740)
[2021-05-13 14:26] LABS: FOLATE 13.6 NG/ML
[2021-05-14 23:09] LABS: ANA (HEP2) Positive (.)
== END ==
LOC: M WUC 11:48
PROVIDERS: ATTEND Physician Assistant
DX: D50.9 Iron deficiency anemia, unspecified (principal); R07.89 Other chest pain; L65.9 Nonscarring hair loss, unspecified; L93.2 Other local lupus erythematosus; E03.9 Hypothyroidism, unspecified

== ENCOUNTER → 2021-06-10 | Outpatient (REF) | payer BC | LOC: M WUC 20:06 | PROVIDERS: ATTEND Nurse Practitioner Family | DX: M54.9 Dorsalgia, unspecified (principal) ==

== ENCOUNTER → 2021-06-10 | Outpatient (CLI) | payer BC ==
--- NOTE | 2021-06-10 14:33 | REP ---
INDICATION: DORSALGIA. COMPARISON: None. TECHNIQUE: Six views of the lumbar spine are provided. FINDINGS: Lumbar vertebral body heights are preserved. There is evidence of benign hemangioma involving to the L1 vertebral body in its anterior aspect. No fracture or collapse is seen. Disc spaces are maintained. There is no evidence of spondylolysis or spondylolisthesis. Psoas margins are symmetric. The visualized sacrum and SI joints are intact. Visualized bowel gas pattern is normal. IMPRESSION: Benign hemangioma in the L1 vertebral body noted as an incidental finding. Otherwise unremarkable lumbar spine radiographs. <Electronically signed by Tino Rahman > 06/10/21 1412
--- NOTE | 2021-06-10 14:35 | REP ---
INDICATION: DORSALGIA. COMPARISON: Comparison is made with chest radiograph images from December 18, 2019.. TECHNIQUE: Four views of the thoracic spine are provided. FINDINGS: Thoracic vertebral body heights are preserved. Alignment is normal. Pedicles and posterior elements are intact. No paravertebral soft tissue mass or hematoma is seen. Swimmer's lateral view shows degenerative disc narrowing and discogenic spurring at C6-7. The visualized lung cates and ribcage are intact. IMPRESSION: No acute abnormality. Degenerative disc disease at the cervicothoracic junction. <Electronically signed by Tino Rahman > 06/10/21 4033
== END ==
LOC: M WUC 13:03
PROVIDERS: ATTEND Nurse Practitioner Family
DX: M54.9 Dorsalgia, unspecified (principal); D18.09 Hemangioma of other sites

== ENCOUNTER → 2021-06-25 | Outpatient (CLI) | payer BC ==
[2021-06-25 18:25] LABS: HEMOGLOBIN 10.8 g/dl (12.0-15.5); MEAN CORPUSCULAR HEMOGLOBIN 27.9 pg (27.0-33.0); MEAN CORPUSCULAR HGB CONC 31.8 g/dl (32.0-36.5); MEAN CORPUSCULAR VOLUME 87.9 fl (80.0-96.0); PLATELET COUNT, AUTOMATED 244 10^3/uL (150-450); RED BLOOD COUNT 3.87 10^6/uL (4.00-5.40); WHITE BLOOD COUNT 5.9 10^3/uL (4.0-10.0)
[2021-06-25 20:01] LABS: ERYTHROCYTE SEDIMENTATION RATE 2 mm/hr (0-20)
[2021-06-25 20:05] LABS: FERRITIN 11 NG/ML (8-252); FOLATE > 24.0 NG/ML; FREE T4 0.95 NG/DL (0.76-1.46); IRON (FE) 73 UG/DL (50-170); PERCENT SATURATION 15.2 % (13.2-45.0); TOTAL IRON BINDING CAPACITY 480 UG/DL (250-450); VITAMIN B12 LEVEL 492 PG/ML
== END ==
LOC: M LAB 17:55
PROVIDERS: ATTEND Physician Assistant
DX: L65.9 Nonscarring hair loss, unspecified (principal); D50.9 Iron deficiency anemia, unspecified; L93.2 Other local lupus erythematosus; E03.9 Hypothyroidism, unspecified

== ENCOUNTER 2021-06-27 19:44 | Emergency (ER) | payer BC ==
[~2021-06-27] VITALS: Ht 162.6 cm; Wt 80.2 kg
[2021-06-27 21:22] LABS: BLOOD UREA NITROGEN 10 MG/DL (7-18); CALCIUM LEVEL 8.4 MG/DL (8.5-10.1); CARBON DIOXIDE LEVEL 28 MEQ/L (21-32); CHLORIDE LEVEL 103 MEQ/L (98-107); CK-MB VALUE MASS < 1.0 NG/ML (<3.6); CPK CREATINE PHOSPHOKINASE 52 U/L (26-192); CREATININE FOR GFR 0.92 MG/DL (0.55-1.30); GLOMERULAR FILTRATION RATE > 60.0 (>58); GLUCOSE, FASTING 106 MG/DL (70-100); MB/CK RELATIVE INDEX 1.92 (< OR =4); NT-PRO BNP 111 PG/ML (<125); POTASSIUM SERUM 4.2 MEQ/L (3.5-5.1); SODIUM LEVEL 136 MEQ/L (136-145); TROPONIN I < 0.02 NG/ML (< 0.10)
[2021-06-27 21:36] LABS: BASO % 0.2 % (0.0-1.0); EOS # 0.2 10^3/uL (0.0-0.5); EOS % 2.9 % (0.0-3.0); HEMATOCRIT 32.2 % (36.0-47.0); HEMOGLOBIN 10.5 g/dl (12.0-15.5); LYMPH # 2.3 10^3/uL (1.5-5.0); LYMPH % 38.5 % (24.0-44.0); MEAN CORPUSCULAR HEMOGLOBIN 28.3 pg (27.0-33.0); MEAN CORPUSCULAR HGB CONC 32.6 g/dl (32.0-36.5); MEAN CORPUSCULAR VOLUME 86.8 fl (80.0-96.0); MONO # 0.8 10^3/uL (0.0-0.8); MONO % 13.3 % (2.0-8.0); NEUTROPHILS # 2.7 10^3/uL (1.5-8.5); NEUTROPHILS % 44.9 % (36.0-66.0); PLATELET COUNT, AUTOMATED 255 10^3/uL (150-450); RED BLOOD COUNT 3.71 10^6/uL (4.00-5.40); WHITE BLOOD COUNT 5.9 10^3/uL (4.0-10.0)
--- NOTE | 2021-06-27 21:50 | REPVR ---
PROCEDURE INFORMATION: Exam: XR Chest Exam date and time: 06/27/2021 8:48 PM Age: 50 years old Clinical indication: Chest wall pain; Additional info: Chest pain TECHNIQUE: Imaging protocol: XR of the chest. Views: 1 view. COMPARISON: CR CHEST 2 VIEW 05/13/2021 12:05 PM FINDINGS: Lungs: There are no interval infiltrates. Pleural spaces: Unremarkable. No pleural effusion. No pneumothorax. Heart/Mediastinum: The heart and mediastinum are unchanged. Bones/joints: Unremarkable. Other findings: Lordotic projection. IMPRESSION: Negative lordotic chest without change from 05/13/2021. Electronically signed by: Dann Bernal On 06/27/2021 21:49:46 PM
--- NOTE | 2021-06-27 23:01 | REPVR ---
PROCEDURE INFORMATION: Exam: CT Abdomen And Pelvis Without Contrast Exam date and time: 06/27/2021 10:05 PM Age: 50 years old Clinical indication: Abdominal pain; Flank; Left; Additional info: Left flank and costal margin pain TECHNIQUE: Imaging protocol: Computed tomography of the abdomen and pelvis without contrast. Radiation optimization: All CT scans at this facility use at least one of these dose optimization techniques: automated exposure control; mA and/or kV adjustment per patient size (includes targeted exams where dose is matched to clinical indication); or iterative reconstruction. COMPARISON: CT ABD/PEL W/IV ORAL CONTRAS 08/08/2018 8:24 PM FINDINGS: Liver: Normal. No mass. Gallbladder and bile ducts: The gallbladder is contracted with no stones. Pancreas: Normal. No ductal dilation. Spleen: Normal. No splenomegaly. Adrenal glands: Normal. No mass. Kidneys and ureters: Normal. No hydronephrosis. Stomach and bowel: Partial ascending colectomy with ileocolic anastomosis in the right lower quadrant at the level of the proximal ascending colon. Minimal colonic diverticulosis without diverticulitis. Appendix: No evidence of appendicitis. Intraperitoneal space: Unremarkable. No free air. No significant fluid collection. Vasculature: Unremarkable. No abdominal aortic aneurysm. Lymph nodes: Unremarkable. No enlarged lymph nodes. Urinary bladder: Unremarkable as visualized. Reproductive: Unremarkable as visualized. Bones/joints: Unremarkable. No acute fracture. Soft tissues: Unremarkable. IMPRESSION: 1. Partial ascending colectomy which is unchanged from 08/08/2018. 2. Minimal colonic diverticulosis without diverticulitis. 3. Otherwise negative CT abdomen/pelvis. No renal or ureteral calculi are evident and there is no evidence of obstructive uropathy. Electronically signed by: Dann Bernal On 06/27/2021 23:00:33 PM
[2021-06-27] MEDS ORDERED: MORPHINE 4 MG/ML 1ML VIAL/SYRINGE (J2270) IV ONE (23:15)
[2021-06-27] MEDS ORDERED: methylPREDNISolone 125MG 2ML VIAL IV ONE (23:25)
[2021-06-28 00:11] VITALS: BP 112/61
--- NOTE | 2021-06-28 12:59 | ECGEPIP ---
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
== END 2021-06-28 00:19 | disposition home or self-care (01) ==
LOC: M ED 19:44
DX: R53.81 Other malaise (principal); M32.9 Systemic lupus erythematosus, unspecified; K50.919 Crohn's disease, unspecified, with unspecified complications; Z90.49 Acquired absence of other specified parts of digestive tract; K57.30 Diverticulosis of large intestine without perforation or abscess without bleeding; J30.1 Allergic rhinitis due to pollen; Z79.3 Long term (current) use of hormonal contraceptives; Z79.899 Other long term (current) drug therapy; Z88.0 Allergy status to penicillin; Z88.8 Allergy status to other drugs, medicaments and biological substances

== ENCOUNTER → 2021-06-27 | Outpatient (CLI) | payer BC ==
--- NOTE | 2021-06-27 09:14 | REP ---
INDICATION: ABD PAIN, CROHNS. COMPARISON: Abdomen/pelvis CT dated 08/08/2018. TECHNIQUE: Complete abdominal ultrasound. Portal vein Doppler ultrasound. Abdominal aorta ultrasound. Bilateral renal artery Doppler ultrasound. FINDINGS: Complete abdomen ultrasound: There is no cholelithiasis, gallbladder wall thickening or pericholecystic fluid. There is no intrahepatic or extrahepatic biliary duct dilatation. The common biliary duct measures 5.5 mm in diameter. This is upper normal to mildly dilated. The hepatic parenchyma is hyperechoic compatible with hepato steatosis. There are no hepatic masses. There is a focal zone of hypoechoic echotexture adjacent to the gallbladder compatible with a zone of fat sparing. The liver is upper normal size measuring 15.1 cm craniocaudad in the midclavicular line. There are limited views of the pancreas because of bowel gas. The visualized areas of the pancreas are unremarkable. The spleen is homogeneous and normal size measuring 8.7 x 9.1 x 3.5 cm for a splenic index of 277. Normal splenic index is less than 480. The right kidney measures 11.1 x 4.5 x 4.7 cm. The left kidney measures 10.1 x 5.2 x 4.7 cm. The kidneys are normal size. There are no renal calculi. There is no hydronephrosis. There are no solid or cystic renal masses. Abdominal aorta: Proximal: 2.0 cm diameter, mid: 2.3 cm diameter, distal: 1.7 cm diameter. There is no abdominal aortic aneurysm. There is no free fluid in the abdomen. Portal vein Doppler ultrasound: The main portal vein diameter is 14 mm. This is upper normal. The main portal vein peak flow velocity is 27.6 centimeters/second. This is normal. Hepatic artery peak flow velocity is 88.7 centimeters/second. This is normal. Bilateral renal artery Doppler ultrasound: Right renal artery: Peak renal artery flow velocity: 93.9 centimeters/second. Peak aortic velocity: 86.9 centimeters/second Renal-aortic ratio: 1.08 Resistive index: Upper pole 0.61, mid pole 0.67, lower pole 0.63. Acceleration time: Upper pole 0.05, mid pole 0.042, lower pole 0.044 Left kidney: Peak renal artery velocity: 81.7 centimeters/second. Peak aortic velocity: 86.9 centimeters/seconds Renal-aortic ratio: 0.94 Resistive index: Upper pole 0.55, mid pole 0.59, lower pole 0.57. Acceleration time: Upper pole 0.032, mid pole 0.042, lower pole 0.046 IMPRESSION: The liver is upper normal size. The gallbladder is unremarkable. There are limited views of the pancreas. Spleen is normal size. The right and left kidneys are unremarkable. There is no abdominal aortic aneurysm. There is no ascites. Doppler ultrasound of the portal vein is negative. No evidence of portal venous hypertension. Doppler ultrasound of the renal arteries identifies no evidence of renal artery stenosis by Doppler ultrasound. <Electronically signed by Brayan Puentes > 06/27/21 0991
== END ==
LOC: M RAD 07:18
PROVIDERS: ATTEND Internal Medicine Gastroenterology
DX: K50.812 Crohn's disease of both small and large intestine with intestinal obstruction (principal); R10.30 Lower abdominal pain, unspecified

== ENCOUNTER → 2021-07-03 | Outpatient (CLI) | payer BC ==
[~2021-07-03] MED LIST changes: +E-Z-GAS II EFFERVESCENT PACKET (SODIUM BICARB./CITRIC ACID/SIMETHICONE) As Ordered ONE; +E-Z-HD 98% w/w 340GM SUSP BTL As Ordered ONE; +E-Z-PAQUE 96% w/w SUSP 176GM BTL As Ordered ONE
--- NOTE | 2021-07-09 15:19 | REP ---
INDICATION: CROHN'S. COMPARISON: None. TECHNIQUE: The procedure was performed under the direct supervision of Dr. Lam. The images were reviewed with Dr. Lam. Liquid barium and gas producing crystals were given in the erect position as well as liquid barium in the prone oblique position in order to perform a double contrast upper GI examination. Additionally liquid barium was given at the end of the examination in order to perform a small bowel follow through. A combination od fluoroscopy, spot films and last image hold technology was utilized, 1.3 minutes of fluoro time was utilized for this procedure. FINDINGS: The management consultant film shows no organomegaly or pathological masses. The intestinal gas pattern is non-specific. The oral and pharyngeal stages of deglutition are unremarkable. Esophageal transport is prompt and efficient and there is no esophagitis, stricture, mucosal ring or hiatal hernia. There is gastroesophageal reflux demonstrated to below the level of the brain. The stomach carson are normally outlined. The rugal folds are smooth and regular. There is no gastritis neoplasm or ulcer disease. The duodenal carson are normally outlined . The mucosal folds are smooth and regular. There is no duodenitis pancreatitis peptic ulcer disease or neoplasm. The visualized portion of the proximal small bowel appears normal in course and caliber. The barium column was followed through the small bowel to the level of the terminal ileum. Small bowel transit time is approximately 2 hours. During fluoroscopy gentle palpation shows all loops are freely movable and pliable. There are no fixed or angulated loops. The small bowel mucosal pattern is normal in course and caliber. There is no transition to suggest a partial small-bowel obstruction. Spot filming of the terminal ileum shows it to be unremarkable. IMPRESSION: There is gastroesophageal reflux demonstrated to below the level of the brain. Otherwise, unremarkable double contrast upper GI and small bowel follow through examination. <Electronically signed by John Tran > 07/03/21 1720 <Electronically signed by Brayan Lam > 07/03/21 7744
== END ==
LOC: M RAD 11:06
PROVIDERS: ATTEND Internal Medicine Gastroenterology
DX: R10.13 Epigastric pain (principal); K50.812 Crohn's disease of both small and large intestine with intestinal obstruction; K21.9 Gastro-esophageal reflux disease without esophagitis

== ENCOUNTER → 2021-07-15 | Outpatient (CLI) | payer BC ==
[~2021-07-15] MED LIST changes: -E-Z-GAS II EFFERVESCENT PACKET (SODIUM BICARB./CITRIC ACID/SIMETHICONE) As Ordered ONE; -E-Z-HD 98% w/w 340GM SUSP BTL As Ordered ONE; -E-Z-PAQUE 96% w/w SUSP 176GM BTL As Ordered ONE
--- NOTE | 2021-07-16 16:19 | SLEEPCENT ---
DATE: 07/15/2021 ORDERED BY: Maral Guillaume Diagnostic nocturnal polysomnography was performed for the titration of pressure therapy in this patient with a clinical diagnosis of obstructive sleep apnea syndrome supported by home testing, reviewing a respiratory event index of 18.4. For testing, a ResMed F20 Air-Fit full-face mask of medium size was used. There was 4 cm of water pressure applied to the circuit, and the lights were extinguished. There was 7 hours and 40 minutes of data reviewed. There was 398.5 minutes of sleep identified. Sleep latency was normal at 13.5 minutes. REM sleep was delayed at 155.5 minutes. Sleep architecture improved late in the study. There were two REM cycles noted. Overall sleep efficiency 87.6%. The electrocardiogram showed a sinus rhythm with an average heart rate of 82 beats per minute. Rate ranged 70-90. EEG showed normal waveforms for wake and sleep. Respiratory events were fully palliated with CPAP at a pressure of +5. There was some activity noted in the limb EMG leads. Limb movement arousal index was 6. IMPRESSION: Obstructive sleep apnea syndrome (G47.33). RECOMMENDATION: Nightly use of pressure therapy, 6 cm of water.
== END ==
LOC: M SLEEP 20:00
PROVIDERS: ATTEND Nurse Practitioner Adult Health
DX: G47.33 Obstructive sleep apnea (adult) (pediatric) (principal)

== ENCOUNTER → 2021-07-17 | Outpatient (CLI) | payer BC ==
[2021-07-17 20:50] LABS: HEMATOCRIT 33.7 % (36.0-47.0); HEMOGLOBIN 10.8 g/dl (12.0-15.5); MEAN CORPUSCULAR HEMOGLOBIN 28.6 pg (27.0-33.0); MEAN CORPUSCULAR VOLUME 89.4 fl (80.0-96.0); PLATELET COUNT, AUTOMATED 262 10^3/uL (150-450); RED BLOOD COUNT 3.77 10^6/uL (4.00-5.40); WHITE BLOOD COUNT 7.9 10^3/uL (4.0-10.0)
[2021-07-17 21:29] LABS: ALBUMIN 2.7 GM/DL (3.2-5.2); ALT/SGPT 17 U/L (12-78); BILIRUBIN,TOTAL 0.2 MG/DL (0.2-1.0); BLOOD UREA NITROGEN 9 MG/DL (7-18); CALCIUM LEVEL 8.6 MG/DL (8.5-10.1); CARBON DIOXIDE LEVEL 25 MEQ/L (21-32); CHLORIDE LEVEL 108 MEQ/L (98-107); CPK CREATINE PHOSPHOKINASE 41 U/L (26-192); CREATININE FOR GFR 0.74 MG/DL (0.55-1.30); FERRITIN 10 NG/ML (8-252); GLOMERULAR FILTRATION RATE > 60.0 (>58); GLUCOSE, FASTING 108 MG/DL (70-100); IRON (FE) 84 UG/DL (50-170); MAGNESIUM LEVEL 1.7 MG/DL (1.8-2.4); PERCENT SATURATION 17.7 % (13.2-45.0); POTASSIUM SERUM 4.8 MEQ/L (3.5-5.1); SODIUM LEVEL 139 MEQ/L (136-145); TOTAL IRON BINDING CAPACITY 475 UG/DL (250-450); TOTAL PROTEIN 6.3 GM/DL (6.4-8.2)
== END ==
LOC: M LAB 18:21
PROVIDERS: ATTEND Physician Assistant
DX: M79.10 Myalgia, unspecified site (principal); D50.9 Iron deficiency anemia, unspecified

== ENCOUNTER → 2021-07-29 | Outpatient (CLI) | payer BC ==
[~2021-07-29] MED LIST changes: +METHACHOLINE KIT (J7674) INH ONE
--- NOTE | 2021-07-29 08:57 | PFTRPT ---
Height: 64.00 Inches Weight: 171.00 Lbs BSA: 1.83 Diagnosis: R06.02 DATE: 07/29/2021 ORDERED BY: Maral Guillaume QUALITY: Study of excellent technical quality. PROCEDURE: Under protocol, methacholine was administered. At a dose of 2.5 mg or 13.875 CDUs, a 31% decline in the FEV1 was noted. PC of 0.67 is significant. Flow rates did return to baseline post bronchodilator administration. IMPRESSION: Positive methacholine challenge study. MTDD
== END ==
LOC: M CARPUL 07-22 13:29
PROVIDERS: ATTEND Nurse Practitioner Adult Health
DX: R06.02 Shortness of breath (principal)
CPT/HCPCS: 94070; J7674

== ENCOUNTER → 2021-08-01 | Outpatient (CLI) | payer BC ==
[~2021-08-01] MED LIST changes: -METHACHOLINE KIT (J7674) INH ONE
--- NOTE | 2021-08-01 17:27 | REPVR ---
PROCEDURE INFORMATION: Exam: CT Neck Without Contrast Exam date and time: 08/01/2021 4:40 PM Age: 50 years old Clinical indication: Enlarged lymph nodes; Additional info: Enlarged lymphnodes swelling lump/mass neck TECHNIQUE: Imaging protocol: Computed tomography images of the neck without contrast. Radiation optimization: All CT scans at this facility use at least one of these dose optimization techniques: automated exposure control; mA and/or kV adjustment per patient size (includes targeted exams where dose is matched to clinical indication); or iterative reconstruction. COMPARISON: CT Neck without contrast 05/16/2020 12:32 PM FINDINGS: Nasopharynx: Unremarkable. Oropharynx: Unremarkable. No significant tonsillar enlargement. Hypopharynx: Unremarkable. Larynx: Unremarkable. Normal epiglottis. Retropharyngeal space: Unremarkable. Submandibular/Parotid glands: Normal. Glands are normal in size. Thyroid: Normal. No enlarged or calcified nodules. Lymph nodes: Unremarkable. No lymphadenopathy. Trachea: Visualized trachea is unremarkable. Lungs: Unremarkable as visualized. Bones/joints: Unremarkable. No acute fracture. Soft tissues: Unremarkable. No significant soft tissue swelling. IMPRESSION: No acute findings. Electronically signed by: Wilfredo Dillard On 08/01/2021 17:27:13 PM
== END ==
LOC: M RAD 16:27
PROVIDERS: ATTEND Otolaryngology
DX: R59.0 Localized enlarged lymph nodes (principal)

== ENCOUNTER 2021-09-12 12:07 | Day surgery (SDC) | payer BC ==
[~2021-09-12] VITALS: Ht 162.6 cm; Wt 80.3 kg
[~2021-09-12 12:07] MED LIST changes: +ALPR0.25; +ARNU1INH3; +BOTO10VL IM; +BUDE3CAP PO; +FOLI1TAB11; +HYDR50TA70; +IBUP-359 PO; +LEVA45AE; +LIDOCAINE 2% 100MG/5ML SDV (FOR ANES.) As Ordered ONE; +METH2.5T48; +NS 1,000 ML IV ONE; +ONDA8TAB10; +PANT40TA29; +SERT50TA29; +TRAZ-186; +VITA100T98 PO; +fentaNYL 100 MCG/2 ML INJECTION (J3010) As Ordered ONE; +propofoL 500 MG/50 ML VIAL As Ordered ONE
--- OUTSIDE RECORDS SUMMARY | 2021-09-12 12:13 | CCD ---
Author Author [facility] Organization [facility] Address Unknown Phone Unavailable Care Team Providers Care Religious Studies Professor Name Role Phone Dai Echavarria Unavailable PROBLEMS Type Condition ICD9-CM Code IVL99-BM Code Onset Dates Condition S tatus W/U Status Risk SNOMED Code Notes Problem Crohn''s disease of both small and large intestine without complication K50.80 Active confirmed 64444068 Problem Anemia due to folic acid deficiency, unspecified deficiency type D52.9 Active confirmed 24901991 Problem Raynaud''s disease without gangrene I73.00 Acti ve confirmed 321867415 Problem History of IBS Z87.19 Active confirmed 64296 327156675 Problem Degenerative disc disease, cervical M50.30 Acti ve confirmed 15935568 Problem Migraine without aura and with status migrainosu s, not intractable G43.001 Active confirmed 282815277 Problem Iron deficiency anemia, unspecified iron deficiency an emia type D50.9 Active confirmed 60644583 Problem PMS (premenstrual syndrome) N94.3 Active confirmed 58838374 Problem Menorrhagia with regular cycle N92.0 Active confir med 622541972 Problem Endometriosis N80.9 Active confirmed 979450 003 Problem Gastroesophageal reflux disease, esophagitis pre sence not specified K21.9 Active confirmed 251691678 Problem Pap smear of cervix shows high risk HPV present R8 7.810 Active confirmed 959924773 Problem Breakthrough bleeding on control pills N92.1 Active confirmed 73981022 Problem Left ovarian cyst N83.202 Active confirmed 1 1025531994457220 Problem At risk for breast cancer Z91.89 Active confirmed 584901309 Problem Amenorrhea N91.2 Active confirmed 33262615 Problem Mixed hyperlipidemia E78.2 Active confirmed 027674644 Problem Cerebral aneurysm I67.1 Active confirmed 12 9154562 Problem Insomnia, unspecified type G47.00 Active confirmed 288997236 Problem Perimenopausal N95.1 Active confirmed 09881 6162096499 Problem EDEN (obstructive sleep apnea) G47.33 Active confirm ed 67027376 Problem Allergic rhinitis, cause unspecified J30.9 Act allison confirmed 17431625 Problem Other chronic pain G89.29 Active confirmed 8 2219765 Problem Family history of breast cancer in mother Z80.3 Active confirmed 176014235 Problem Vitamin D deficiency E55.9 Active confirmed 35465454 Problem Anxiety F41.9 Active confirmed 66411077 Problem Other local lupus erythematosus L93.2 Active confi rmed 47690899 Problem Hypothyroidism, unspecified type E03.9 Active conf irmed 28067021 Problem Daytime somnolence R40.0 Active confirmed 1 [id number] ALLERGIES Allergen (clinical drug ingredient) Drug/Non Drug Allergy do cumented on EMR Reaction Allergy Type Onset Date Status metoclopramide Reglan([facility] Code:[address]-91) feels lik e i want to jump out of my skin Drug Allergy Active adalimumab Humira([facility] Code:[address]-79) Edema, Generalize d Weakness/Pain Drug Allergy Active Amoxicillin Hives Drug Allergy Active metaxalone Skelaxin([facility] Code:[address]-06) diffuse edema Drug Allerg y Active ENCOUNTERS from 1972 to 2021-08-20 Encounter Location Date Provider Diagnosis [place] [id number] [facility] [phone] [place] [address] Aug, Dai Echavarria IMMUNIZATIONS Vaccine Route Administration Date Status Depo-Provera 150mg/1mL Medroxy-Progestrone Acetate IM Intram uscular Oct 28, 2018 Administered Depo-Provera 150mg/1mL Medroxy-Progestrone Acetate IM Intram uscular Aug 05, 2018 Administered SOCIAL HISTORY Tobacco Use: Social History Observation Description Date Details (start date - stop date) Never Smoker Sex Assigned At : Social History Observation Description Sex Assigned At Unknown Education: Question Answer Notes Level of Education: College Audit Question Answer Notes Total Score: 1 Interpretation: Alcohol Education Caodaism: Question Answer Notes Caodaism 13 Yazdanism Sexual Hx: Question Answer Notes Had sex in the last 12 months (vaginal, oral, or anal)? Yes LMP: 09/14/16 Have you ever had an STD? No Prevention Strategies discussed: Condoms with Men only Drug and Alcohol Question Answer Notes Total Score: 0 Interpretation: No problems reported Alcohol Screening: Question Answer Notes Did you have a drink containing alcohol in the past year? Ye s Points 2 Interpretation Negative How often did you have six or more drinks on one occas ion in the past year? Never (0 points) How many drinks did you have on a typica l day when you were drinking in the past year? 1 or 2 (0 points) How often did you have a drink containing alcohol in t he past year? Two to four times a month (2 points) Tobacco Use: Question Answer Notes Are you a: never smoker never smoker REASON FOR REFERRAL No Information VITAL SIGNS No information MEDICATIONS Medication SIG (Take, Route, Frequency, Duration) Notes Start Da te End Date Status Aspir-81 81 MG 1 tablet Orally Once a day Active Hyoscyamine 0.375 MG as directed Orally Active FRANK 3-0.02 MG 1 tablet Orally Once a day for 84 days 2019 Active Stelara 45 MG/0.5ML as directed Subcutaneous onc e now and then once after 4 weeks, then every 3 months for 90 days Apr, Active Vitamin D3 2000 UNIT 1 capsule Orally Once a day Active Sertraline HCl 50 MG 1 tablet Orally Once a day ( with 100mg dose for total of 150mg) for 30 day(s) Oct, Active Flonase 50 MCG/DOSE 1 spray in each nostril Nasally Once a day as nee ded Active lamoTRIgine 25 MG 2 tablets Orally once a day Active busPIRone HCl 15 MG 1 tablet Orally Twice a day for 30 Days Active Gummies/DHA & FA 0.4-32.5 MG Orally Active Linzess 72 MCG 1 capsule at least 30 minute s before the first meal of the day on an empty stomach Orally Once a day for 30 day(s) Active Levothyroxine Sodium 50 MCG 1 capsule in the morning o n an empty stomach Orally Once a day for 30 day(s) March, Not-Chriss ing Zoloft 100 MG 1 tablet Orally Once a day for 30 Active Botox 100 UNIT Injection 32 injections for migraine Active May Have iron injections asdir Ac tive Scopolamine 1 MG/3DAYS 1 patch to skin behind the e ar as needed Transdermal for 30 day(s) Active Zofran 8 mg 1 tab(s) Orally as needed for nausea for 30 days Active Mouthwashes - COMPOUNDING, equal parts Maa lox, Benedryl and Viscous Lidocaine Mouth/Throat 10ml every 3 hours, up to 6x per day for 7 day(s) 0 2 May, 2021 Not-Taking hydrOXYzine HCl 50 MG 1-2 tablets as needed Orally three times a day as needed for 30 day(s) March, Active Magnesium Oxide 400 (241.3 Mg) MG 1 tablet with food O rally Once a day for 30 day(s) Jul, Active Protonix 40 MG 2 tablets Orally twice daily for 30 days Active Hydrocortisone Acetate 25 MG 1 suppository Rectal Once a day for 14 day(s) May, Active Ibuprofen 800 MG 1 tablet with food or milk a s needed Orally Three times a day for 30 Active Vitamin B2 400mg bid Active Sudafed 30 MG 1 tablet as needed Orally every 6 hrs Active Diana Allergy 180 MG 1 tablet as needed Orally Once a day Active HYDROcodone-Acetaminophen 7.5-325 MG 1 tablet as neede d Orally/Reference #:[id number] twice daily for pain (MDD: 2) for 14 day(s) Jul, Active Methotrexate 2.5 MG as directed Orally 5 pills every Wednesday Active ALPRAZolam 0.25 MG 1 tablet Orally/Reference #: [id number] Twice a day as needed (MDD: 2) for 30 Days Jul, Active 3 ml syringe 25 gauge 1 1/2" needle Intramuscularly once a m ont for 90 day(s) May, Active Cyanocobalamin 1000 MCG/ML 1 ml intramuscularly once a month for 90 day(s) May, Active SUMAtriptan Succinate 100 MG 1 tablet at least 2 hours between doses as needed Oral as directed for 30 Days Act allison Imitrex STATdose Refill 6 MG/0.5ML 1 injection Subcuta neous as needed for 30 Days Active traZODone HCl 50 MG 1-2 tablets at bedtime as needed Orally Once a day for 30 Active PROCEDURES No Information RESULTS No Results REASON FOR VISIT refill MEDICAL (GENERAL) HISTORY Type Description Date Medical History GERD Medical History Migraine headache, common ty pe normal MRI brain x r maxillary sinusitis, acute Medical History Endometriosis Medical History Crohn's disease-s/p ileocect maria t in 2004, h/o severe neutropenia c 6-/02/2012 colonoscopy increased ulcers at surgical site-Ali Medical History Weakness in arms Medical History Irritable bowel syndrome Medical History Anemia 2 to B12, folate and iron deficie ncy Medical History Vitamin D deficiency Medical History Allergic rhinitis Medical History Chronic paracervical sprain- 05/2011 MRI c C5/6 slight stable bulge, C6/7 mild R paracentral bulge Medical History Aneurysm right brain 1.2 mm 2015 Medical History Unspecified vitamin D deficiency Medical History Allergic rhinitis, cause unspecified Medical History Esophageal reflux Medical History Other vitamin B12 deficiency anemia Medical History Loss of weight Medical History Regional enteritis of unspecified site Medical History Unspecified iron deficiency anemia Medical History Raynaud's syndrome Medical History Folate-deficiency anemia Medical History Degeneration of cervical intervertebral disc Medical History TIA Medical History 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 intestine 3" and ilium- Dr Jalen Hernandez 04/2005 Surgical History Colposcopy Surgical History EGD, colonoscopy, small bowel f/t 2013 Surgical History Cerebral angiogram 11/2016 Surgical History Cerebral angiogram/ bubble study 01/2020 Hospitalization History Surgery Related Goals Section No Information Health Concerns No Information MEDICAL EQUIPMENT No Information MENTAL STATUS No Information FUNCTIONAL STATUS No Information ASSESSMENTS No Information PLAN OF TREATMENT Medication Medication Name Sig Start Date Stop Date Imitrex STATdose Refill 6 MG/0.5ML 1 injection Subcuta neous as needed for 30 Days traZODone HCl 50 MG 1-2 tablets at bedtime as needed Orally Once a day for 30 HYDROcodone-Acetaminophen 7.5-325 MG 1 tablet as neede d Orally/Reference #:[id number] twice daily for pain (MDD: 2) for 14 day(s) Jul, SUMAtriptan Succinate 100 MG 1 tablet at least 2 hours between doses as needed Oral as directed for 30 Days Magnesium Oxide 400 (241.3 Mg) MG 1 tablet with food O rally Once a day for 30 day(s) Jul, ALPRAZolam 0.25 MG 1 tablet Orally/Reference #: [id number] Twice a day as needed (MDD: 2) for 30 Days Jul, busPIRone HCl 15 MG 1 tablet Orally Twice a day for 30 Days Next Appt Details Provider Name:Dai Echavarria, 2021-09-05 09:00:00 AM, [address] [place] [address], , [place], [address], Provider Name:Birdie Evangelista, 2021-09-25 11:20:00 AM, [address] [place] [address], , [place], [address], Insurance Providers Payer Name Payer Address Payer Phone Insured Name Patient Relati onship to Insured Coverage Start Date Coverage End Date [facility] [place] [id number] [address] [facility] [id number] MICHELLE KNIGHT self
--- OUTSIDE RECORDS SUMMARY | 2021-09-12 12:13 | CCD | Continuity of Care Document ---
Author Author Teressa HEALY MD Organization Unknown Address [address] [place] [address] Phone [phone] Care Team Providers Care Job Hand Name Role Phone YanickArabella P.A.-C AUTM [phone] AUTM Unavailable AUTM Unavailable Dai Echavarria M.D. AUTM [phone] Joni Vazquez M.D. AUTM Problems Active Problems Provider Date Obstructive sleep apnea syndrome Maral Aundrea, ANP Onset: 06/25/2021 Cough Maral Aundrea, ANP Onset: 06/25/2021 Dyspnea Maral Aundrea, ANP Onset: 06/25/2021 Social History Type Date Description Comments Sex Unknown ETOH Use Rarely Tobacco Use Start: Unknown Non Smoker Recreational Drug Use Denies Drug Use Smoking Status Reviewed: 08/07/21 Non Smoker Allergies and adverse reactions Active Allergies Criticality Reaction | Severity Comments Date Amoxicillin Unable to assess criticality 06/04/2021 Reglan Unable to assess criticality Anxiety 06/04/2021 Skelaxin Unable to assess criticality edema 06/04/2021 Tizanidine Unable to assess criticality 07/28/2021 Albuterol Sulfate Unable to assess criticality palpita tions 08/07/2021 Medications Active Medications SIG Qnty Indications Ordering Provide r Date Dexamethasone 0.5 MGM/ 5 ML dexamethasone 20 ml, benad ryl 160 ml, nystatin 60 ml and cephalexin 1500 mgm 250 mg/ 5 ml rinse, gargle and swallow tid 270ml Gray Healy MD 08/21/2021 Levalbuterol Tartrate 45mcg/Act Ae rosol inhale 2 puffs by mouth four times daily as needed 15gm NATALY Ambrocio 08/07/2021 Arnuity Ellipta 200mcg/Act Aerosol 1 puff every day 30units NATALY Ambrocio 08/07/2021 Clenpiq 10-3.5-12mg-GM -GM/160ML S olution follow pre-procedure instructions. start day before procedure. (if not covered by insurance please fill gavilyte script). 320ml Kenneth Vazquez M.D. 08/06/2021 Gavilyte-N With Flavor Pack 420gm Solution Rec drink the liquid as per the pre-procedur e instructions. ( fill this script only if clenpiq is not covered by insurance). 4000ml Joni Vazquez M.D. 08/06/[address] take 4 tablets together as per bowel preparation instructions. 4tabs Joni Vazquez M.D. 08/06/[address] Part 3 tabs by mouth once a day before dinner for 4 weeks then 2 tabs daily for next 4 weeks and then 1 tablet daily last 4 week. 180caps Joni schwab M.D. 07/30/2021 Sinus Rinse Bottle Kit Packet use once daily 3Months J31.0 Gray Healy MD 07/28/2021 CPAP Device 6cm lcw NATALY Ambrocio 07/22/2021 Colace 100mg Capsules 1 tab orally twice a day before meal. (increase to 3 per day if persistent contipation and hold/decrease if having diarrhea) 90caps K50.812 Joni morse M.D. 07/09/2021 B12 Injection once a month Unknown 0 Vitamin B Complex Tablets On ce daily Unknown Drospirenone-Ethinyl Estradiol 3-0.02mg Tablets Take 1 Tablet By Mouth Every Day Nish Evangelista A.R.N.P. Folic Acid 1mg Tablets Lenore Paul M.D. Methotrexate 2.5mg Tablets Take 5 Tablets By Mouth Every Week Lenore Paul M.D. Sumatriptan Succinate 6mg/0.5ML Solution Auto-Inject Unknown Sumatriptan Succinate 100mg Tablet s Take 1 Tablet By Mouth as Needed For Headache And May Repeat In 2 Hours Unknown Sertraline HCL 100mg Tablets 1 by mouth every day Unknown Hydroxyzine HCL 10mg Tablets 1 tab by mouth three times a day as needed Unknown Buspirone HCL 15mg Tablets 1 tab by mouth every day Unknown Vit B2 1 tab by mouth every day Unknown Pantoprazole Sodium 40mg Tablets D R 1 by mouth every day 60tabs Unknown History Medications Dexamethasone 0.5mg/5ML Solution dexamethasone 20 milliliters, benadryl 160 milliliters, nystatin 60 milliliters, amoxicillin 1500 mgm rinse mouth with 5 milliliters and swa 480ml K12.0 Gray Healy MD 07/28/2021 - 11/21/2020 Immunizations Description No Information Available Vital Signs Date Vital Result Comment 08/21/2021 10:36am Height 64 inches 5'4" Weight 177.00 lb BMI (Body Mass Index) 30.4 kg/m2 [place] Body Weight 120 lb Weight 80.287 kg BSA (Body Surface Area) 1.86 m2 08/07/2021 10:04am BP Systolic 122 mmHg BP Diastolic 80 mmHg Heart Rate 84 /min O2 % BldC Oximetry 99 % Height 64 inches 5'4" Weight 173.00 lb BMI (Body Mass Index) 29.7 kg/m2 [place] Body Weight 120 lb Weight 78.473 kg BSA (Body Surface Area) 1.84 m2 Results Test Acquired Date Facility Test Result H/L Range Note Xray 06/27/2021 [facility] nter Radiology Dept [address] [place], [place] [address] [phone] Ultrasound Abdomen Complete 0 Complete Blood Count 06/25/2021 [facility] Mike Herrera enter Main Lab [address] [place] [address] [phone] White Blood Count 5.9 10 Normal 4.0-10.0 Red Blood Count 3.87 10 Low 4.00-5.40 Hemoglobin 10.8 g/dL Low 12.0-15.5 Hematocrit 34.0 % Low 36.0-47.0 Mean Corpuscular Volume 87.9 fl Normal 80.0-96.0 Mean Corpuscular Hemoglobin 27.9 pg Normal 27.0-33.0 Mean Corpuscular HGB Conc 31.8 g/dL Low 32.0-36.5 Red Cell Distribution Width 15.4 % High 11.5-14.5 Platelet Count, Automated 244 10 Normal 150-450 Nucleated Red Blood Cell % 0.0 % Normal 0-0 Laboratory test finding 06/25/2021 [facility] Main Lab [address] [place] [address] [phone] Erythrocyte Sedimentation Rate 2 mm/hr Normal 0 -20 Retic (Reticulocyte Count) 06/25/2021 [facility] Main Lab [address] [place] [address] [phone] Reticulocyte % 1.6 % High 0.5-1.5 Reticulocyte # 62.3 10 Normal 17-77 Retic Hemoglobin Equivalent 30.5 pg Normal 24-36 Laboratory test finding 06/25/2021 [facility] Main Lab [address] [place] [address] [phone] Retic (Reticulocyte Count) <pending> Total Iron Binding Capacit 06/25/2021 [facility] Main Lab [address] [place] [address] [phone] Iron (Fe) 73 g/dL Normal 50-170 Total Iron Binding Capacity 480 g/dL High 250-450 Percent Saturation 15.2 % Normal 13.2-45.0 FT4&TSH Panel 06/25/2021 [facility] nter Main Lab [address] [place] [address] [phone] Thyroid Stimulating Hormone 1.880 uIU/ML Normal 0. 358-3.740 Free T4 0.95 ng/dL Normal 0.76-1.46 Vitamin B12 & Folate 06/25/2021 [facility] enter Main Lab [address] [place] [address] [phone] Vitamin B12 Level 492 pg/mL Normal 1 Folate > 24.0 NG/ML Normal 2 Laboratory test finding 06/25/2021 [facility] Main Lab [address] [place] [address] [phone] Ferritin 11 NG/ML Normal 8-252 C Reactive Protein Quantitativ 0.70 mg/dL High 0.00-0.30 Jyoti Titer & Pattern 06/25/2021 [facility] [address] [place] [address] [phone] Jyoti (Hep2) Positive Abnormal . 3 Jyoti Homogeneous Pattern TNP Normal . Jyoti Nucleolar Pattern TNP Normal . Jyoti Speckled Pattern 1:320 High . 4 Jyoti Centromere Pattern TNP Normal . Jyoti Spindle Apparatus Pattern TNP Normal . Jyoti Nuclear Membrane Pattern TNP Normal . Jyoti Midbody Pattern TNP Normal . Jyoti Nuclear Dot Pattern TNP Normal . Jyoti Pcna Pattern TNP Normal . Jyoti Centriole Pattern TNP Normal . Jyoti Note (SEE NOTE) Normal . 5 FVL/Sidney 06/25/2021 [employer] SEE IMAGE FVC-Pred 3.58 L FVC-Pre 3.66 L FVC-%Pred-Pre 102 L FVC-LLN 2.88 L Fev1-Pred 2.85 L Fev1-Pre 3.07 L Fev1-%Pred-Pre 107 L Fev1-LLN 2.26 L Fev6-Pred 3.49 L Fev6-Pre 3.66 L Fev6-%Pred-Pre 104 L Fev6-LLN 2.81 L Mmg1kye-Dhez 81 % Gjk9qqi-Qve 84 % Chc5tot-%Pred-Pre 104 % Tgf6fst-OQG 71 % Aji9noj-Ueid 98 % Wdy9ofk-Hqz 100 % Apu2xdx-%Pred-Pre 102 % FEFMax-Pred 6.80 L/E/sec FEFMax-Pre 7.76 L/E/sec FEFMax-%Pred-Pre 114 L/E/sec FEFMax-LLN 5.08 L/E/sec Rwh6783-Lwka 2.84 L/E/sec Jbu3642-Ccf 3.31 L/E/sec Eba4438-%Pred-Pre 116 L/E/sec Gsx3005-LKZ 1.60 L/E/sec ExpTime-Pre 4.33 sec Nsk8gcv7-Egfr 83 % Wsg1hwo3-Due 84 % Poe2qpj0-%Pred-Pre 101 % Swd3clh7-FCV 74 % 1 VITAMIN B12 NORMAL RANGE NORMAL 247 - 911 PG/ML INDETERMINATE 211 - 246 PG/ML DEFICIENT LESS THAN 211 PG/ML 2 FOLATE NORMAL RANGE NORMAL GREATER THAN 5.4 NG/ML INDETERMINATE 3.4-5.4 NG/ML DEFICIENT LESS THAN 3.4 NG/ML 3 Negative <1:80 Borderline 1:80 Positive >1:80 4 Dense Fine Speckled pattern is noted. This pattern suggests the presence of DFS70 antibody which has a low prevalence in systemic autoimmune rheumatic diseases. ICAP nomenclature: AC-2,4,5,29 5 . For more information about Hep-2 cell patterns use ANApatterns.org, the official website for the International Consensus on Antinuclear Antibody (JYOTI) Patterns (ICAP). A positive JYOTI result may occur in healthy individuals (low titer) or be associated with a variety of diseases. See interpretation chart which is not all inclusive: . Pattern Antigen Detected Suggested Disease Association --------- Homogeneous DNA(ds,ss), SLE - High titers Nucleosomes, Histones Drug-induced SLE --------- Speckled Sm, CLAIMS MANAGER, SCL-70, SLE,MCTD,PSS (diffuse form), SS-A/SS-B Sjogrens --------- Nucleolar SCL-70, PM-1/SCL High titers Scleroderma, PM/DM --------- Centromere Centromere PSS (limited form) w/Crest syndrome variable --------- Nuclear Dot Sp100,l85-qbbrua Primary Biliary Cirrhosis --------- Nuclear GP210, Primary Biliary Cirrhosis Membrane oscar A,B,C --------- Performed at: RN - [facility] [address] [id number] Service Coordinator: Kait Apple MD, Phone: [phone] Procedures Date Code Description Status 08/07/2021 05637 Office/Outpatient Established Mo d MDM 30-39 Min Completed 08/07/202154872 Office/Outpatient Established Lo w MDM 20-29 Min Completed 07/28/2021 02227 Office/Outpatient New Moderate M DM 45-59 Minutes Completed 07/28/2021 87534 Laryngoscopy Flexible Fiberoptic Diagnostic Completed 07/18/2021 28139 Diffusing Capacity Completed 07/18/2021 71174 Plethysmography Determination Clara ng Volumes & Per Airway Resist Completed 07/18/2021 84974 Bronchospasm Evaluation Complete d 06/25/2021 14430 Office/Outpatient New Moderate M DM 45-59 Minutes Completed 06/25/2021 08772 Spirometry Completed 06/04/2021 22785 Office/Outpatient New Moderate M DM 45-59 Minutes Completed Medical Devices Description No Information Available Encounters Type Date Location Provider Dx Diagnosis Office Visit 08/07/2021 10:30a [facility] Pulmonary/Thoracic NATALY Miller J45.40 Moderate persistent asthma, uncomplicate d G47.33 Obstructive sleep apnea (florinda lt) (pediatric) Office Visit 08/07/2021 9:40a [facility] ENT Practice Gray Healy MD K12.0 Recurrent oral aphthae Office Visit 07/28/2021 8:00a [facility] Gray Healy MD R59.0 Localized enlarged lymph nodes K12.0 Recurrent oral aphthae J31.0 Chronic rhinitis Office Visit 06/25/2021 10:00a [facility] Pulmonary/Thoracic NATALY Miller R06.02 Shortness of breath R05 Cough G47.33 Obstructive sleep apnea (florinda lt) (pediatric) Office Visit 06/04/2021 1:00p [facility] Gastroenterology Maribel Vazquez M.D. K50.812 Crohn's disease of both smal l and lg int w intestinal obst R14.0 Abdominal distension (gaseou s) R11.10 Vomiting, unspecified R10.13 Epigastric pain Assessments Date Code Description Provider 08/21/2021 K12.0 Recurrent oral aphthae Gray brtio MD 08/07/2021 K12.0 Recurrent oral aphthae Gray brito MD 08/07/2021 J45.40 Moderate persistent asthma, unco mplicated NATALY Ambrocio 08/07/2021 G47.33 Obstructive sleep apnea (adult) (pediatric) NATALY Ambrocio 07/28/2021 R59.0 Localized enlarged lymph nodes N noreen Helay MD 07/28/2021 K12.0 Recurrent oral aphthae Gray brito MD 07/28/2021 J31.0 Chronic rhinitis Gray Healy MD 07/18/2021 R06.02 Shortness of breath Pulmonary La b 06/25/2021 R06.02 Shortness of breath NATALY Ambrocio 06/25/2021 R05 Cough NATALY Ambrocio 06/25/2021 G47.33 Obstructive sleep apnea (adult) (pediatric) NATALY Ambrocio 06/13/2021 R10.13 Epigastric pain Joni Chen ala, M.D. 06/04/2021 K50.812 Crohn's disease of b oth small and large intestine with intestinal obstruction Joni Vazquez M.D. 06/04/2021 R14.0 Abdominal distension (gaseous) C yuliya Vazquez M.D. 06/04/2021 R11.10 Regurgitation Joni Chen ala, M.D. 06/04/2021 R10.13 Epigastric pain Joni Chen ala, M.D. Plan of Treatment Future Appointment(s):* 09/19/2021 2:20 pm - Gray Healy MD at [facility] E[facility] * 10/07/2021 3:30 pm - NATALY Ambrocio at [facility] Pulmonary/Thoracic * 09/08/2021 9:10 am - Gray Healy MD at [facility]NT [facility] 08/07/2021 - NATALY Ambrocio* J45.40 Moderate persistent asthma, uncomplicated * G47.33 Obstructive sleep apnea (adult) (pediatric) * * New Labs:* FVL/Sidney, Ordered: 08/07/21 * Comments:* Patient appears to have a mild anemia with a hemoglobin of 11 g/dL. I would leave any follow-up of this issue with the primary care provider. * Follow up:* Follow up 8-10 weeks with fvl/spirometry and DL (31-90 days after CPAP set up). Functional Status Description No Information Available Mental Status Description No Information Available Referrals Refer to Reason for Referral Status Appt Date Gray Healy M.D. Cervical lymphadenopathy in 2018, when on Humira incomplete lymph node anaysis by FNA, Evaluate for excisional biopsy of lymph nodes Closed 07/28/[address] [place] [address] [phone] Williams Sorenson MD 50 year old female with cer vical lymphadenopathy in 2018, when on HUmira ( used to follow in [place]), now referred to here and patient had incomplete lymph node analysis by FNA ( pathology reported dilute sample). Patient has some improvement of lymphadenopathy but not completely resolved. Please evaluate for Excisional biopsy of lymph nodes. Thank you. Created [address] [facility] [address] [place] [address] [phone] Maral Guillaume A.N.P. SOB, EDEN Closed 06/25/2021 [facility] Pulmonary [address] [place], [place] [address] [phone]
--- OUTSIDE RECORDS SUMMARY | 2021-09-12 12:13 | CCD ---
Author Author [facility] Organization [facility] Address Unknown Phone Unavailable Care Team Providers Care Office Service Coordinator Name Role Phone Wallace Doyle Unavailable PROBLEMS Type Condition ICD9-CM Code XRA33-HI Code Onset Dates Condition S tatus W/U Status Risk SNOMED Code Notes Problem Anemia due to folic acid deficiency, unspecified deficiency type D52.9 Active confirmed 85481602 Problem Raynaud''s disease without gangrene I73.00 Acti ve confirmed 290266482 Problem Degenerative disc disease, cervical M50.30 Acti ve confirmed 45752292 Problem Iron deficiency anemia, unspecified iron deficiency an emia type D50.9 Active confirmed 91378811 Problem Gastroesophageal reflux disease, esophagitis pre sence not specified K21.9 Active confirmed 670184721 Problem Migraine without aura and with status migrainosu s, not intractable G43.001 Active confirmed 196286047 Problem Allergic rhinitis, cause unspecified J30.9 Act allison confirmed 03012593 Problem Vitamin D deficiency E55.9 Active confirmed 51040719 Problem Mixed hyperlipidemia E78.2 Active confirmed 860095540 Problem Cerebral aneurysm I67.1 Active confirmed 12 8799348 Problem Insomnia, unspecified type G47.00 Active confirmed 966636318 Problem EDEN (obstructive sleep apnea) G47.33 Active confirm ed 84710654 Problem Pap smear of cervix shows high risk HPV present R8 7.810 Active confirmed 504300096 Problem Other chronic pain G89.29 Active confirmed 8 9471949 Problem Endometriosis N80.9 Active confirmed 271164 003 Problem Crohn''s disease of both small and large intestine without complication K50.80 Active confirmed 21358884 Problem Perimenopausal N95.1 Active confirmed 84476 [id number] Problem Anxiety F41.9 Active confirmed 09103891 Problem Other local lupus erythematosus L93.2 Active confi rmed 89423182 Problem Hypothyroidism, unspecified type E03.9 Active conf irmed 69743843 ALLERGIES Allergen (clinical drug ingredient) Drug/Non Drug Allergy do cumented on EMR Reaction Allergy Type Onset Date Status metoclopramide Reglan([facility] Code:[address]-20) feels lik e i want to jump out of my skin Drug Allergy Active adalimumab Humira([facility] Code:[address]-13) Edema, Generalize d Weakness/Pain Drug Allergy Active Amoxicillin Hives Drug Allergy Active metaxalone Skelaxin([facility] Code:[address]-94) diffuse edema Drug Allerg y Active ENCOUNTERS from 1972 to 2021-09-09 Encounter Location Date Provider Diagnosis [place] [id number] [facility] [phone] [place] [address] Aug, Wallace Balbuenanya Anxiety F41.9 IMMUNIZATIONS Vaccine Route Administration Date Status Depo-Provera [...] Notes Total Score: 1 Interpretation: Alcohol Education Evangelical: Question Answer Notes Evangelical 13 [employer] Sexual Hx: Question Answer Notes Had sex [...] Notes Start Da te End Date Status Flonase 50 MCG/DOSE 1 spray in each nostril Nasally Once a day as nee ded Active lamoTRIgine 25 MG 2 tablets Orally once a day Active ALPRAZolam 0.25 MG 1 tablet Orally Twice a day as needed (M DD: 2) for 5 day(s) Aug, Active Gummies/DHA & FA 0.4-32.5 MG Orally Active Linzess 72 MCG 1 capsule at least 30 minute s before the first meal of the day on an empty stomach Orally Once a day for 30 day(s) Active FRANK 3-0.02 MG 1 tablet Orally Once a day for 84 days 2019 Active Vitamin B2 400mg bid Active Zoloft 100 MG 1 tablet Orally Once a day for 30 Active busPIRone HCl 15 MG 1 tablet Orally Twice a day for 30 Days Active Botox 100 UNIT Injection 32 injections for migraine Active May Have iron injections asdir Ac tive Levothyroxine Sodium 50 MCG 1 capsule in the morning o n an empty stomach Orally Once a day for 30 day(s) March, Not-Chriss ing Diana Allergy 180 MG 1 tablet as needed Orally Once a day Active Protonix 40 MG 2 tablets Orally twice daily for 30 days Active Scopolamine 1 MG/3DAYS 1 patch to skin behind the e ar as needed Transdermal for 30 day(s) Active Sertraline HCl 50 MG 1 tablet Orally Once a day ( with 100mg dose for total of 150mg) for 30 day(s) Oct, Active Magnesium Oxide 400 (241.3 Mg) MG 1 tablet with food O rally Once a day for 30 day(s) Jul, Active Ibuprofen 800 MG 1 tablet with food or milk a s needed Orally Three times a day for 30 Active HYDROcodone-Acetaminophen 7.5-325 MG 1 tablet as neede d Orally/Reference #:[id number] twice daily for pain (MDD: 2) for 14 day(s) Jul, Active Stelara 45 MG/0.5ML as directed Subcutaneous onc e now and then once after 4 weeks, then every 3 months for 90 days Apr, Active Vitamin D3 2000 UNIT 1 capsule Orally Once a day Active Mouthwashes - COMPOUNDING, equal parts Maa lox, Benedryl and Viscous Lidocaine Mouth/Throat 10ml every 3 hours, up to 6x per day for 7 day(s) 0 May, Not-Taking Methotrexate 2.5 MG as directed Orally 5 pills every Wednesday Active Sudafed 30 MG 1 tablet as needed Orally every 6 hrs Active Hyoscyamine 0.375 MG as directed Orally Active traZODone HCl 50 MG 1-2 tablets at bedtime as ne eded Orally Once a day for 30 days Active Hydrocortisone Acetate 25 MG 1 suppository Rectal Once a day for 14 day(s) May, Active Aspir-81 81 MG 1 tablet Orally Once a day Active Zofran 8 mg 1 tab(s) Orally as needed for nausea for 30 days Active hydrOXYzine HCl 50 MG 1-2 tablets as needed Orally three times a day as needed for 30 day(s) March, Active SUMAtriptan Succinate 100 MG 1 tablet at least 2 hours between doses as needed Oral as directed for 30 Days Act allison 3 ml syringe 25 gauge 1 1/2" needle Intramuscularly once a m ont for 90 day(s) May, Active Cyanocobalamin 1000 MCG/ML 1 ml intramuscularly once a month for 90 day(s) May, Active Imitrex STATdose Refill 6 MG/0.5ML 1 injection Subcuta neous as needed for 30 Days Active PROCEDURES No Information RESULTS No Results REASON FOR VISIT refills MEDICAL (GENERAL) HISTORY Type Description Date Medical History GERD Medical History Migraine headache, common ty pe-03/2011 normal MRI brain x r maxillary sinusitis, [...] isidra mutation and uncertain variant Medical History Elza Ignacio score 30.5 % Medical History Bubble study [...] No Information FUNCTIONAL STATUS No Information ASSESSMENTS Encounter Date Diagnosis Assessment Notes Treatment Notes Treatm ent Clinical Notes Aug, Anxiety (ICD-10 - F41.9) PLAN OF TREATMENT Medication Medication Name Sig Start Date Stop Date SUMAtriptan Succinate 100 MG 1 tablet at least 2 hours between doses as needed Oral as directed for 30 Days Imitrex STATdose Refill 6 MG/0.5ML 1 injection Subcuta neous as needed for 30 Days Magnesium Oxide 400 (241.3 Mg) MG 1 tablet with food O rally Once a day for 30 day(s) Jul, HYDROcodone-Acetaminophen 7.5-325 MG 1 tablet as neede d Orally/Reference #:[id number] twice daily for pain (MDD: 2) for 14 day(s) Jul, traZODone HCl 50 MG 1-2 tablets at bedtime as ne eded Orally Once a day for 30 days Sertraline HCl 50 MG 1 tablet Orally Once a day ( with 100mg dose for total of 150mg) for 30 day(s) Oct, busPIRone HCl 15 MG 1 tablet Orally Twice a day for 30 Days ALPRAZolam 0.25 MG 1 tablet Orally Twice a day as needed (M DD: 2) for 5 day(s) Aug, Next Appt Details Provider Name:Birdie Nielsonc, 2021-09-25 11:20:00 AM, [address] [facility], , [place], [address], Provider Name:Meghan Dominguez, 01-22 08:45:00 AM, [address] [facility], , [place], [address], Insurance Providers Payer Name Payer Address Payer Phone Insured Name Patient Relati onship to Insured Coverage Start Date Coverage End Date [place] [address] [address] [place] [id number] MICHELLE KNIGHT self
--- OUTSIDE RECORDS SUMMARY | 2021-09-12 12:13 | CCD ---
Author Author [facility] Organization [facility] Address Unknown Phone Unavailable Care Team Providers Care Char Filter Operator Helper Name Role Phone Dai Echavarria Unavailable PROBLEMS Type Condition ICD9-CM Code LYN85-KE Code Onset Dates Condition S tatus W/U Status Risk SNOMED Code Notes Problem Crohn''s disease of both small and large intestine without complication K50.80 Active confirmed 39871411 Problem Anemia due to folic acid deficiency, unspecified deficiency type D52.9 Active confirmed 26353952 Problem Raynaud''s disease without gangrene I73.00 Acti ve confirmed 929669553 Problem History of IBS Z87.19 Active confirmed 56103 650089693 Problem Degenerative disc disease, cervical M50.30 Acti ve confirmed 54703834 Problem Migraine without aura and with status migrainosu s, not intractable G43.001 Active confirmed 126306260 Problem Iron deficiency anemia, unspecified iron deficiency an emia type D50.9 Active confirmed 23202377 Problem PMS (premenstrual syndrome) N94.3 Active confirmed 56588349 Problem Menorrhagia with regular cycle N92.0 Active confir med 907108460 Problem Endometriosis N80.9 Active confirmed 850735 003 Problem Gastroesophageal reflux disease, esophagitis pre sence not specified K21.9 Active confirmed 194876013 Problem Pap smear of cervix shows high risk HPV present R8 7.810 Active confirmed 338680073 Problem Breakthrough bleeding on control pills N92.1 Active confirmed 63813232 Problem Left ovarian cyst N83.202 Active confirmed 1 [id number] Problem At risk for breast cancer Z91.89 Active confirmed 663849367 Problem Amenorrhea N91.2 Active confirmed 40810589 Problem Mixed hyperlipidemia E78.2 Active confirmed 926929288 Problem Cerebral aneurysm I67.1 Active confirmed 12 8568557 Problem Insomnia, unspecified type G47.00 Active confirmed 002178939 Problem Perimenopausal N95.1 Active confirmed 91420 2958910575 Problem EDEN (obstructive sleep apnea) G47.33 Active confirm ed 32789820 Problem Allergic rhinitis, cause unspecified J30.9 Act allison confirmed 95471337 Problem Other chronic pain G89.29 Active confirmed 8 2018395 Problem Family history of breast cancer in mother Z80.3 Active confirmed 212503207 Problem Vitamin D deficiency E55.9 Active confirmed 59890680 Problem Anxiety F41.9 Active confirmed 81233411 Problem Other local lupus erythematosus L93.2 Active confi rmed 73445064 Problem Hypothyroidism, unspecified type E03.9 Active conf irmed 84913188 Problem Daytime somnolence R40.0 Active confirmed 1 [id number] ALLERGIES Allergen (clinical drug ingredient) Drug/Non Drug Allergy do cumented on EMR Reaction Allergy Type Onset Date Status metoclopramide Reglan([facility] Code:[address]-69) feels lik e i want to jump out of my skin Drug Allergy Active adalimumab Humira([facility] Code:[address]-24) Edema, Generalize d Weakness/Pain Drug Allergy Active Amoxicillin Hives Drug Allergy Active metaxalone Skelaxin([facility] Code:[address]-89) diffuse edema Drug Allerg y Active ENCOUNTERS from 1972 to 2021-08-13 Encounter Location Date Provider Diagnosis [place] [id number] [facility] [phone] [place] [address] Jul, Dai [place]alia IMMUNIZATIONS Vaccine Route Administration Date Status Depo-Provera [...] Notes Total Score: 1 Interpretation: Alcohol Education Religious: Question Answer Notes Religious 13 Zoroastrianism Sexual Hx: Question Answer Notes Had sex [...] Notes Start Da te End Date Status Gummies/DHA & FA 0.4-32.5 MG Orally Active Hyoscyamine 0.375 MG as directed Orally Active FRANK 3-0.02 MG 1 tablet Orally Once a day for 84 days 2019 Active Aspir-81 81 MG 1 tablet Orally Once a day Active Vitamin D3 2000 UNIT 1 capsule [...] Twice a day for 30 Days Active Imitrex STATdose Refill 6 MG/0.5ML 1 injection Subcutaneous as needed Active Linzess 72 MCG 1 capsule at [...] as needed Transdermal for 30 day(s) Active Ibuprofen 800 MG 1 tablet with food or milk a s needed Orally Three times a day for 30 Active Zofran 8 mg 1 tab(s) Orally as needed for nausea for 30 days Active HYDROcodone-Acetaminophen 7.5-325 MG 1 tablet as neede d Orally/Reference #:[id number] twice daily for pain (MDD: 2) for 14 day(s) Jul, Active Methotrexate 2.5 MG as directed Orally 5 pills every Wednesday Active Protonix 40 MG 2 tablets Orally twice daily for 30 days Active ALPRAZolam 0.25 MG 1 tablet Orally/Reference #: [id number] Twice a day as needed (MDD: 2) for 30 Days Jul, Active Magnesium Oxide 400 (241.3 Mg) MG 1 tablet with food O rally Once a day for 30 day(s) Jul, Active Vitamin B2 400mg bid Active Sudafed 30 MG 1 tablet as needed Orally every 6 hrs Active Diana Allergy 180 MG 1 tablet as needed Orally Once a day Active Hydrocortisone Acetate 25 MG 1 suppository Rectal Once a day for 14 day(s) May, Active Stelara 45 MG/0.5ML as directed Subcutaneous onc e now and then once after 4 weeks, then every 3 months for 90 days Apr, Active Mouthwashes - COMPOUNDING, equal parts Maa lox, Benedryl and Viscous Lidocaine Mouth/Throat 10ml every 3 hours, up to 6x per day for 7 day(s) 0 May, Not-Taking SUMAtriptan Succinate 100 MG 1 tablet at least 2 hours between doses as needed Oral as directed for 30 Days Act allison 3 ml syringe 25 gauge 1 1/2" needle Intramuscularly once a m ont for 90 day(s) May, Active hydrOXYzine HCl 50 MG 1-2 tablets as needed Orally three times a day as needed for 30 day(s) March, Active Cyanocobalamin 1000 MCG/ML 1 ml intramuscularly once a month for 90 day(s) May, Active traZODone HCl 50 MG 1-2 tablets at bedtime as needed Orally Once a day for 30 Active PROCEDURES No Information RESULTS No Results REASON FOR VISIT refill MEDICAL (GENERAL) HISTORY Type Description Date Medical History GERD Medical History Migraine headache, common ty normal MRI brain x r maxillary sinusitis, acute Medical History Endometriosis Medical History Crohn's disease-s/p ileocect maria t in 2004, h/o severe neutropenia c 6-MP/02/2012 colonoscopy increased ulcers at surgical site-Ali Medical [...] Medication Name Sig Start Date Stop Date HYDROcodone-Acetaminophen 7.5-325 MG 1 tablet as neede d Orally/Reference #:[id number] twice daily for pain (MDD: 2) for 14 day(s) Jul, traZODone HCl 50 MG 1-2 tablets at bedtime as needed Orally Once a day for 30 Magnesium Oxide 400 (241.3 Mg) MG 1 tablet with food O rally Once a day for 30 day(s) Jul, ALPRAZolam 0.25 MG 1 tablet Orally/Reference #: [id number] Twice a day as needed (MDD: 2) for 30 Days Jul, busPIRone HCl 15 MG 1 tablet Orally Twice a day for 30 Days Next Appt Details Provider Name:Dai Webb Traenina, 2021-09-05 09:00:00 AM, [address] [place] [address], , [place], [address], Provider Name:Birdie Evangelista, 2021-09-25 11:20:00 AM, [address] [place] [address], , [place], [address], Insurance Providers Payer Name Payer Address Payer Phone Insured Name Patient Relati onship to Insured Coverage Start Date Coverage End Date BS [place]ARGARET[place] [address] [address] [facility] [address] [phone] MICHELLE KNIGHT self
--- OUTSIDE RECORDS SUMMARY | 2021-09-12 12:13 | CCD | Continuity of Care Document ---
Author Author Teressa HEALY MD Organization Unknown Address [address] [facility] [address] [place] [address] Phone [phone] Care Team Providers Care Processing Associate Name Role Phone YanickArabella P.A.-C AUTM [phone] AUTM Unavailable AUTM Unavailable Dai Echavarria M.D. AUTM [phone] Joni Vazquez M.D. AUTM [phone] Problems Active Problems Provider Date Obstructive sleep [...] lb BMI (Body Mass Index) 30.4 kg/m2 [place] Body Weight 120 lb Weight 80.287 kg BSA (Body Surface Area) 1.86 m2 08/07/2021 10:04am BP Systolic 122 mmHg BP Diastolic 80 mmHg Heart Rate 84 /min O2 % BldC Oximetry 99 % Height 64 inches 5'4" Weight 173.00 lb BMI (Body Mass Index) 29.7 kg/m2 [place] Body Weight 120 lb Weight 78.473 kg BSA (Body Surface Area) 1.84 m2 Results Test Acquired Date Facility Test Result H/L Range Note Xray 06/27/2021 [facility] nter Radiology Dept [address] [place], [place] [address] [phone] Ultrasound Abdomen Complete 0 Complete Blood Count 06/25/2021 [facility] Mike Herrera enter Main Lab [address] [place] [address] [phone] White Blood Count 5.9 10 Normal 4.0-10.0 [...] % Normal 0-0 Laboratory test finding 06/25/2021 [facility] Main Lab [address] [place] [address] [phone] Erythrocyte Sedimentation Rate 2 mm/hr Normal 0 -20 Retic (Reticulocyte Count) 06/25/2021 [facility] Main Lab [address] [place] [address] [phone] Reticulocyte % 1.6 % High 0.5-1.5 Reticulocyte # 62.3 10 Normal 17-77 Retic Hemoglobin Equivalent 30.5 pg Normal 24-36 Laboratory test finding 06/25/2021 [facility] Main Lab [address] [place] [address] [phone] Retic (Reticulocyte Count) <pending> Total Iron Binding Capacit 06/25/2021 [facility] Main Lab [address] [place] [address] [phone] Iron (Fe) 73 g/dL Normal 50-170 Total Iron Binding Capacity 480 g/dL High 250-450 Percent Saturation 15.2 % Normal 13.2-45.0 FT4&TSH Panel 06/25/2021 [facility] nter Main Lab [address] [place] [address] [phone] Thyroid Stimulating Hormone 1.880 uIU/ML Normal 0. 358-3.740 Free T4 0.95 ng/dL Normal 0.76-1.46 Vitamin B12 & Folate 06/25/2021 [facility] enter Main Lab [address] [place] [address] [phone] Vitamin B12 Level 492 pg/mL Normal 1 Folate > 24.0 NG/ML Normal 2 Laboratory test finding 06/25/2021 [facility] Main Lab [address] [place] [address] [phone] Ferritin 11 NG/ML Normal 8-252 C Reactive Protein Quantitativ 0.70 mg/dL High 0.00-0.30 Jyoti Titer & Pattern 06/25/[facility] [address] [place] [address] [phone] Jyoti (Hep2) Positive Abnormal . 3 Jyoti [...] L Fev6-%Pred-Pre 104 L Fev6-LLN 2.81 L Wnj1vfi-Zzej 81 % Tjr9tps-Syf 84 % Pyh9mgd-%Pred-Pre 104 % Ehh9ydq-GLL 71 % Vos8kzv-Euds 98 % Xid3qyc-Jvy 100 % Osx6nmf-%Pred-Pre 102 % FEFMax-Pred 6.80 L/E/sec FEFMax-Pre 7.76 L/E/sec FEFMax-%Pred-Pre 114 L/E/sec FEFMax-LLN 5.08 L/E/sec Pye5943-Ammv 2.84 L/E/sec Plt0199-Rdp 3.31 L/E/sec Mgg8442-%Pred-Pre 116 L/E/sec Wak4205-ZYB 1.60 L/E/sec ExpTime-Pre 4.33 sec Yxv7oze8-Kixt 83 % Csc7zac1-Rzf 84 % Enp0hyd8-%Pred-Pre 101 % Jba2hpo3-ZSI 74 % 1 VITAMIN B12 NORMAL RANGE [...] Nucleosomes, Histones Drug-induced SLE --------- Speckled Sm, DIRECTOR OF HOME HEALTH SERVICES, SCL-70, SLE,MCTD,PSS (diffuse form), SS-A/SS-B Sjogrens --------- Nucleolar SCL-70, PM-1/SCL High titers Scleroderma, PM/DM --------- Centromere Centromere PSS (limited form) w/Crest syndrome variable --------- Nuclear Dot Sp100,x30-dntnzw Primary Biliary Cirrhosis --------- Nuclear GP210, Primary Biliary Cirrhosis Membrane oscar A,B,C --------- Performed at: RN - [facility] [address] [id number] Business Specialist: Kait Apple MD, Phone: [phone] Procedures Date Code Description Status 08/21/2021 38748 Office/Outpatient Established Lo w MDM 20-29 Min Completed 08/07/2021 78564 Office/Outpatient Established Mo d MDM 30-39 Min Completed 08/07/2021 35825 Office/Outpatient Established Lo w MDM 20-29 Min Completed 07/28/2021 60726 Office/Outpatient New Moderate M DM 45-59 Minutes Completed 07/28/2021 03043 Laryngoscopy Flexible Fiberoptic Diagnostic Completed 07/18/2021 11861 Diffusing Capacity Completed 07/18/2021 79241 Plethysmography Determination Clara ng Volumes & Per Airway Resist Completed 07/18/2021 42377 Bronchospasm Evaluation Complete d 06/25/2021 60401 Office/Outpatient New Moderate M DM 45-59 Minutes Completed 06/25/2021 08492 Spirometry Completed 06/04/2021 05708 Office/Outpatient New Moderate M DM 45-59 Minutes Completed Medical Devices Description No Information Available Encounters Type Date Location Provider Dx Diagnosis Office Visit 08/21/2021 10:30a [facility] ENT Practice Gray Healy MD K12.0 Recurrent oral aphthae Office Visit 08/07/2021 10:30a [facility] Pulmonary/Thoracic Maral To NATALY moeller J45.40 Moderate persistent asthma, uncomplicate d G47.33 Obstructive sleep apnea (florinda lt) (pediatric) Office Visit 08/07/2021 9:40a [facility] ENT Practice Gray Healy MD K12.0 Recurrent oral aphthae Office Visit 07/28/2021 8:00a [facility] ENT Practice Gray Healy MD R59.0 Localized enlarged lymph nodes K12.0 Recurrent oral aphthae J31.0 Chronic rhinitis Office Visit 06/25/2021 10:00a [facility] Pulmonary/Thoracic Maral To NATALY moeller R06.02 Shortness of breath R05 Cough G47.33 Obstructive sleep apnea (florinda lt) (pediatric) Office Visit 06/04/2021 1:00p [facility] Gastroenterology Maribel Vazquez M.D. K50.812 Crohn's disease of both smal l and lg int w intestinal obst R14.0 Abdominal distension (gaseou s) R11.10 Vomiting, unspecified R10.13 Epigastric pain Assessments Date Code Description Provider 08/21/2021 K12.0 Recurrent oral aphthae Gray Rashard brito MD 08/07/2021 K12.0 Recurrent oral aphthae Gray Rashard brito MD 08/07/2021 J45.40 Moderate persistent asthma, unco mplicated NATALY Ambrocio 08/07/2021 G47.33 Obstructive sleep apnea (adult) (pediatric) NATALY Ambrocio 07/28/2021 R59.0 Localized enlarged lymph nodes N noreen Healy MD 07/28/2021 K12.0 Recurrent oral aphthae Gray Rashard brito MD 07/28/2021 J31.0 Chronic rhinitis Gray [...] 2:20 pm - Gray Healy MD at [facility] ENT Practice * 10/07/2021 3:30 pm - NATALY Ambrocio at [facility] Pulmonary/Thoracic * 09/08/2021 9:10 am - Gray Healy MD at [facility] ENT Practice 08/07/2021 - NATALY Ambrocio* J45.40 Moderate persistent asthma, uncomplicated * G47.33 Obstructive sleep apnea (adult) (pediatric) * * New Labs:* FVL/Parachute, Ordered: 08/07/21 * Comments:* Patient appears to have a mild anemia with a hemoglobin of 11 g/dL. I would leave any follow-up of this issue with the primary care provider. * Follow up:* Follow up 8-10 weeks with fvl/spirometry and DL (31-90 days after CPAP set up). Functional Status Description No Information Available Mental Status Description No Information Available Referrals Refer to Dr Reason for Referral Status Appt Date Gray Healy M.D. Cervical lymphadenopathy in 2018, when on Humira incomplete lymph node anaysis by FNA, Evaluate for excisional biopsy of lymph nodes Closed 07/28/[address] [place] [address] [phone] Williams Sorenson MD 50 year old female with cer vical lymphadenopathy in 2018, when on HUmira ( used to follow in [place]), now referred to here and patient had incomplete lymph node analysis by FNA ( pathology reported dilute sample). Patient has some improvement of lymphadenopathy but not completely resolved. Please evaluate for Excisional biopsy of lymph nodes. Thank you. Created [address] [facility] [address] [place], [place] [address] [phone] Maral Guillaume A.N.P. SOB, EDEN Closed 06/25/2021 [facility] Pulmonary [address] [place], [place] [address] [phone]
--- OUTSIDE RECORDS SUMMARY | 2021-09-12 12:13 | CCD | Continuity of Care Document ---
Author Author Teressa HEALY MD Organization Unknown Address [address] [facility] [address] [place] [address] Phone [phone] Care Team Providers Care Cash Register Mechanic Name Role Phone YanickArabella P.A.-C AUTM [phone] AUTM Unavailable AUTM Unavailable Dai Echavarria M.D. AUTM [phone] Joni Vazquez M.D. AUTM [phone] Problems Active Problems Provider Date Obstructive [...] lb BMI (Body Mass Index) 30.4 kg/m2 [place] Body Weight 120 lb Weight 80.287 kg BSA (Body Surface Area) 1.86 m2 08/07/2021 10:04am BP Systolic 122 mmHg BP Diastolic 80 mmHg Heart Rate 84 /min O2 % BldC Oximetry 99 % Height 64 inches 5'4" Weight 173.00 lb BMI (Body Mass Index) 29.7 kg/m2 [place] Body Weight 120 lb Weight 78.473 kg BSA (Body Surface Area) 1.84 m2 Results Test Acquired Date Facility Test Result H/L Range Note Xray 06/27/2021 [facility] nter Radiology Dept [address] [place], [place] [address] [phone] Ultrasound Abdomen Complete 0 Complete Blood Count 06/25/2021 [facility] Mike Herrera enter Main Lab [address] [place] [address] [phone] White Blood Count 5.9 10 Normal 4.0-10.0 [...] % Normal 0-0 Laboratory test finding 06/25/2021 [facility] Main Lab [address] [place] [address] [phone] Erythrocyte Sedimentation Rate 2 mm/hr Normal 0 -20 Retic (Reticulocyte Count) 06/25/2021 [facility] Main Lab [address] [place] [address] [phone] Reticulocyte % 1.6 % High 0.5-1.5 Reticulocyte # 62.3 10 Normal 17-77 Retic Hemoglobin Equivalent 30.5 pg Normal 24-36 Laboratory test finding 06/25/2021 [facility] Main Lab [address] [place] [address] [phone] Retic (Reticulocyte Count) <pending> Total Iron Binding Capacit 06/25/2021 [facility] Main Lab [address] [place] [address] [phone] Iron (Fe) 73 g/dL Normal 50-170 Total Iron Binding Capacity 480 g/dL High 250-450 Percent Saturation 15.2 % Normal 13.2-45.0 FT4&TSH Panel 06/25/2021 [facility] nter Main Lab [address] [place] [address] [phone] Thyroid Stimulating Hormone 1.880 uIU/ML Normal 0. 358-3.740 Free T4 0.95 ng/dL Normal 0.76-1.46 Vitamin B12 & Folate 06/25/2021 [facility] enter Main Lab [address] [place] [address] [phone] Vitamin B12 Level 492 pg/mL Normal 1 Folate > 24.0 NG/ML Normal 2 Laboratory test finding 06/25/2021 [facility] Main Lab [address] [place] [address] [phone] Ferritin 11 NG/ML Normal 8-252 C Reactive Protein Quantitativ 0.70 mg/dL High 0.00-0.30 Jyoti Titer & Pattern 06/25/2021 [facility] Lab [address] [place] [address] [phone] Jyoti (Hep2) Positive Abnormal . 3 Jyoti [...] Jyoti Note (SEE NOTE) Normal . 5 FVL/Sdiney 06/25/2021 [facility] SEE IMAGE FVC-Pred 3.58 L FVC-Pre 3.66 L FVC-%Pred-Pre 102 L FVC-LLN 2.88 L Fev1-Pred 2.85 L Fev1-Pre 3.07 L Fev1-%Pred-Pre 107 L Fev1-LLN 2.26 L Fev6-Pred 3.49 L Fev6-Pre 3.66 L Fev6-%Pred-Pre 104 L Fev6-LLN 2.81 L Wqr5xtn-Bqsd 81 % Kwl6zce-Stz 84 % Uuc7pxl-%Pred-Pre 104 % Gpq2njk-EAB 71 % Dzp9gbh-Pxfj 98 % Pkf4wgb-Fsm 100 % Aou2xuw-%Pred-Pre 102 % FEFMax-Pred 6.80 L/E/sec FEFMax-Pre 7.76 L/E/sec FEFMax-%Pred-Pre 114 L/E/sec FEFMax-LLN 5.08 L/E/sec Dph1358-Pwuu 2.84 L/E/sec Wcq7356-Bwk 3.31 L/E/sec Nly7282-%Pred-Pre 116 L/E/sec Vrq2316-BJI 1.60 L/E/sec ExpTime-Pre 4.33 sec Zur8dkb0-Uiij 83 % Aaq5cbz6-Yxr 84 % Hlf7njb2-%Pred-Pre 101 % Qld3veh9-HHM 74 % 1 VITAMIN B12 NORMAL RANGE [...] Nucleosomes, Histones Drug-induced SLE --------- Speckled Sm, SOLAR WATER HEATER INSTALLER, SCL-70, SLE,MCTD,PSS (diffuse form), SS-A/SS-B Sjogrens --------- Nucleolar SCL-70, PM-1/SCL High titers Scleroderma, PM/DM --------- Centromere Centromere PSS (limited form) w/Crest syndrome variable --------- Nuclear Dot Sp100,c36-dtgdno Primary Biliary Cirrhosis --------- Nuclear GP210, Primary Biliary Cirrhosis Membrane oscar A,B,C --------- Performed at: RN - [facility] [address] [id number] Traffic Rate Clerk: Kait Apple MD, Phone: [phone] Procedures Date Code Description Status 08/07/2021 02347 Office/Outpatient Established Mo d MDM 30-39 Min Completed 08/07/202133059 Office/Outpatient Established Lo w MDM 20-29 Min Completed 07/28/2021 00204 Office/Outpatient New Moderate M DM 45-59 Minutes Completed 07/28/2021 52529 Laryngoscopy Flexible Fiberoptic Diagnostic Completed 07/18/2021 08025 Diffusing Capacity Completed 07/18/2021 34765 Plethysmography Determination Clara ng Volumes & Per Airway Resist Completed 07/18/2021 57293 Bronchospasm Evaluation Complete d 06/25/2021 80835 Office/Outpatient New Moderate M DM 45-59 Minutes Completed 06/25/2021 68766 Spirometry Completed 06/04/2021 95109 Office/Outpatient New Moderate M DM 45-59 Minutes Completed Medical Devices Description No Information Available Encounters Type Date Location Provider Dx Diagnosis Office Visit 08/07/2021 10:30a [facility] Pulmonary/Thoracic NATALY Miller J45.40 Moderate persistent asthma, uncomplicate d G47.33 Obstructive sleep apnea (florinda lt) (pediatric) Office Visit 08/07/2021 9:40a [facility] ENT Practice Gray Healy MD K12.0 Recurrent oral aphthae Office Visit 07/28/2021 8:00a [facility] ENT Practice Gray Healy MD R59.0 Localized enlarged lymph nodes K12.0 Recurrent oral aphthae J31.0 Chronic rhinitis Office Visit 06/25/2021 10:00a [facility] Pulmonary/Thoracic NATALY Miller R06.02 Shortness of breath R05 Cough G47.33 Obstructive sleep apnea (florinda lt) (pediatric) Office Visit 06/04/2021 1:00p [facility] Gastroenterology Maribel Vazquez M.D. K50.812 Crohn's disease of both smal l and lg int w intestinal obst R14.0 Abdominal distension (gaseou s) R11.10 Vomiting, unspecified R10.13 Epigastric pain Assessments Date Code Description Provider 08/21/2021 K12.0 Recurrent oral aphthae Gray brito MD 08/07/2021 K12.0 Recurrent oral aphthae [...] 2:20 pm - Gray Healy MD at [facility] ENT Practice * 10/07/2021 3:30 pm - NATALY Ambrocio at [facility] Pulmonary/Thoracic * 09/08/2021 9:10 am - Gray Healy MD at [facility] ENT Practice 08/07/2021 - NATALY [...] excisional biopsy of lymph nodes Closed 07/28/[address] [place] [address] [phone] Williams Sorenson MD 50 year old female with cer vical lymphadenopathy in 2018, when on HUmira ( used to follow in [place]), now referred to here and patient had incomplete lymph node analysis by FNA ( pathology reported dilute sample). Patient has some improvement of lymphadenopathy but not completely resolved. Please evaluate for Excisional biopsy of lymph nodes. Thank you. Created [address] [facility] [address] [place] [address] [phone] Maral Guillauem A.N.P. SOB, EDEN Closed 06/25/2021 [facility] Pulmonary [address] [place], [place] [address] [phone]
--- OUTSIDE RECORDS SUMMARY | 2021-09-12 12:13 | CCD ---
Author Author [facility] Organization [facility] Address Unknown Phone Unavailable Care Team Providers Care Azure Principal Solution Specialist Name Role Phone Dai Echavarria Unavailable PROBLEMS Type Condition ICD9-CM Code SUF30-OQ Code Onset Dates Condition S tatus W/U Status Risk SNOMED Code Notes Problem Crohn''s disease of both small and large intestine without complication K50.80 Active confirmed 52820895 Problem Anemia due to folic acid deficiency, unspecified deficiency type D52.9 Active confirmed 63291350 Problem Raynaud''s disease without gangrene I73.00 Acti ve confirmed 600087896 Problem History of IBS Z87.19 Active confirmed 83208 257442357 Problem Degenerative disc disease, cervical M50.30 Acti ve confirmed 69547999 Problem Migraine without aura and with status migrainosu s, not intractable G43.001 Active confirmed 204507937 Problem Iron deficiency anemia, unspecified iron deficiency an emia type D50.9 Active confirmed 62337618 Problem PMS (premenstrual syndrome) N94.3 Active confirmed 64941029 Problem Menorrhagia with regular cycle N92.0 Active confir med 113437314 Problem Endometriosis N80.9 Active confirmed 715424 003 Problem Gastroesophageal reflux disease, esophagitis pre sence not specified K21.9 Active confirmed 128867270 Problem Pap smear of cervix shows high risk HPV present R8 7.810 Active confirmed 740216195 Problem Breakthrough bleeding on control pills N92.1 Active confirmed 83414098 Problem Left ovarian cyst N83.202 Active confirmed 1 9580949851016749 Problem At risk for breast cancer Z91.89 Active confirmed 303517875 Problem Amenorrhea N91.2 Active confirmed 51455609 Problem Mixed hyperlipidemia E78.2 Active confirmed 025975985 Problem Cerebral aneurysm I67.1 Active confirmed 12 9830080 Problem Insomnia, unspecified type G47.00 Active confirmed 355907715 Problem Perimenopausal N95.1 Active confirmed 91665 5130552856 Problem EDEN (obstructive sleep apnea) G47.33 Active confirm ed 89950088 Problem Allergic rhinitis, cause unspecified J30.9 Act allison confirmed 58176697 Problem Other chronic pain G89.29 Active confirmed 8 0978731 Problem Family history of breast cancer in mother Z80.3 Active confirmed 801374201 Problem Vitamin D deficiency E55.9 Active confirmed 47749179 Problem Anxiety F41.9 Active confirmed 70696647 Problem Other local lupus erythematosus L93.2 Active confi rmed 51663408 Problem Hypothyroidism, unspecified type E03.9 Active conf irmed 40203603 Problem Daytime somnolence R40.0 Active confirmed 1 52428923139 ALLERGIES Allergen (clinical drug ingredient) Drug/Non Drug Allergy do cumented on EMR Reaction Allergy Type Onset Date Status metoclopramide Reglan([facility] Code:[address]-89) feels lik e i want to jump out of my skin Drug Allergy Active adalimumab Humira([facility] Code:[address]-16) Edema, Generalize d Weakness/Pain Drug Allergy Active Amoxicillin Hives Drug Allergy Active metaxalone Skelaxin([facility] Code:[address]-57) diffuse edema Drug Allerg y Active ENCOUNTERS from 1972 to 2021-08-21 Encounter Location Date Provider Diagnosis [place] [address] [facility] [phone] [place] [address] Aug, Dai Echavarria IMMUNIZATIONS Vaccine Route Administration [...] Notes Total Score: 1 Interpretation: Alcohol Education Faith: Question Answer Notes Faith 13 Pentecostal[employer] Sexual Hx: Question Answer Notes Had sex [...] MG 1 tablet as neede d Orally/Reference #:[id number] twice daily for pain (MDD: 2) for 14 day(s) Jul, Active Methotrexate 2.5 MG as directed Orally 5 pills every Wednesday Active ALPRAZolam 0.25 MG 1 tablet Orally/Reference #: [id number] Twice a day as needed (MDD: 2) [...] Information RESULTS No Results REASON FOR VISIT FYI MEDICAL (GENERAL) HISTORY Type Description Date Medical [...] MG 1 tablet as neede d Orally/Reference #:[id number] twice daily for pain (MDD: 2) for 14 day(s) Jul, SUMAtriptan Succinate 100 MG 1 tablet at least 2 hours between doses as needed Oral as directed for 30 Days Magnesium Oxide 400 (241.3 Mg) MG 1 tablet with food O rally Once a day for 30 day(s) Jul, ALPRAZolam 0.25 MG 1 tablet Orally/Reference #: [id number] Twice a day as needed (MDD: 2) for 30 Days Jul, busPIRone HCl 15 MG 1 tablet Orally Twice a day for 30 Days Next Appt Details Provider Name:Dai Echavarria, 2021-09-05 09:00:00 AM, [address] [place] [address], , [place], [address], Provider Name:Birdie Evangelista, 2021-09-25 11:20:00 AM, [address] [place] [address], , [place], [address], Insurance Providers Payer Name Payer Address Payer Phone Insured Name Patient Relati onship to Insured Coverage Start Date Coverage End Date [facility]FFER [facility] [place] [address] [address] [facility] [id number] MICHELLE KNIGHT self
--- OUTSIDE RECORDS SUMMARY | 2021-09-12 12:13 | CCD | Continuity of Care Document ---
Author Author Teressa HEALY MD Organization Unknown Address [address] [facility] [address] [place] [address] Phone [phone] Care Team Providers Care Automotive Mechanical Engineer Name Role Phone YanickArabella P.A.-C AUTM [phone] AUTM Unavailable AUTM Unavailable Dai Echavarria M.D. AUTM [phone] Joni Vazquez M.D. AUTM [phone] Problems Active Problems Provider Date Obstructive [...] lb BMI (Body Mass Index) 30.4 kg/m2 [place] Body Weight 120 lb Weight 80.287 kg BSA (Body Surface Area) 1.86 m2 08/07/2021 10:04am BP Systolic 122 mmHg BP Diastolic 80 mmHg Heart Rate 84 /min O2 % BldC Oximetry 99 % Height 64 inches 5'4" Weight 173.00 lb BMI (Body Mass Index) 29.7 kg/m2 [place] Body Weight 120 lb Weight 78.473 kg BSA (Body Surface Area) 1.84 m2 Results Test Acquired Date Facility Test Result H/L Range Note Xray 06/27/2021 [facility] nter Radiology Dept [address] [place], [place] [address] [phone] Ultrasound Abdomen Complete 0 Complete Blood Count 06/25/2021 [facility] Mike Herrera enter Main Lab [address] [place] [address] [phone] White Blood Count 5.9 10 Normal 4.0-10.0 [...] % Normal 0-0 Laboratory test finding 06/25/2021 [facility] Main Lab [address] [place] [address] [phone] Erythrocyte Sedimentation Rate 2 mm/hr Normal 0 -20 Retic (Reticulocyte Count) 06/25/2021 [facility] Main Lab [address] [place] [address] [phone] Reticulocyte % 1.6 % High 0.5-1.5 Reticulocyte # 62.3 10 Normal 17-77 Retic Hemoglobin Equivalent 30.5 pg Normal 24-36 Laboratory test finding 06/25/2021 [facility] Main Lab [address] [place] [address] [phone] Retic (Reticulocyte Count) <pending> Total Iron Binding Capacit 06/25/2021 [facility] Main Lab [address] [place] [address] [phone] Iron (Fe) 73 g/dL Normal 50-170 Total Iron Binding Capacity 480 g/dL High 250-450 Percent Saturation 15.2 % Normal 13.2-45.0 FT4&TSH Panel 06/25/2021 [facility] nter Main Lab [address] [place] [address] [phone] Thyroid Stimulating Hormone 1.880 uIU/ML Normal 0. 358-3.740 Free T4 0.95 ng/dL Normal 0.76-1.46 Vitamin B12 & Folate 06/25/2021 [facility] enter Main Lab [address] [place] [address] [phone] Vitamin B12 Level 492 pg/mL Normal 1 Folate > 24.0 NG/ML Normal 2 Laboratory test finding 06/25/2021 [facility] Main Lab [address] [place] [address] [phone] Ferritin 11 NG/ML Normal 8-252 C Reactive Protein Quantitativ 0.70 mg/dL High 0.00-0.30 Jyoti Titer & Pattern [facility] [address] [place] [address] [phone] Jyoti (Hep2) Positive Abnormal . 3 Jyoti [...] L Fev6-%Pred-Pre 104 L Fev6-LLN 2.81 L Njw9vlc-Pvmh 81 % Tjz4rsy-Fwk 84 % Eic3ryz-%Pred-Pre 104 % Duy7adc-RXX 71 % Hwi2sml-Fnjj 98 % Auc4the-Ikm 100 % Ruw3qta-%Pred-Pre 102 % FEFMax-Pred 6.80 L/E/sec FEFMax-Pre 7.76 L/E/sec FEFMax-%Pred-Pre 114 L/E/sec FEFMax-LLN 5.08 L/E/sec Qwi3997-Ramb 2.84 L/E/sec Qwq9901-Kvs 3.31 L/E/sec Dbc7364-%Pred-Pre 116 L/E/sec Odf6083-LEF 1.60 L/E/sec ExpTime-Pre 4.33 sec Zpi9nar3-Rixe 83 % Gep0lik6-Chv 84 % Plq5tnp2-%Pred-Pre 101 % Kac6lok5-FPD 74 % 1 VITAMIN B12 NORMAL RANGE [...] Nucleosomes, Histones Drug-induced SLE --------- Speckled Sm, VICE PRESIDENT CONS[employer]ING [employer], SCL-70, SLE,MCTD,PSS (diffuse form), SS-A/SS-B Sjogrens --------- Nucleolar SCL-70, PM-1/SCL High titers Scleroderma, PM/DM --------- Centromere Centromere PSS (limited form) w/Crest syndrome variable --------- Nuclear Dot Sp100,a38-xsnsku Primary Biliary Cirrhosis --------- Nuclear GP210, Primary Biliary Cirrhosis Membrane oscar A,B,C --------- Performed at: RN - [facility] [address] [id number] [employer]: Kait Apple MD, Phone: [phone] Procedures Date Code Description Status 08/07/2021 98059 Office/Outpatient Established Mo d MDM 30-39 Min Completed 08/07/202159278 Office/Outpatient Established Lo w MDM 20-29 Min Completed 07/28/2021 83051 Office/Outpatient New Moderate M DM 45-59 Minutes Completed 07/28/2021 09165 Laryngoscopy Flexible Fiberoptic Diagnostic Completed 07/18/2021 67727 Diffusing Capacity Completed 07/18/2021 67138 Plethysmography Determination Clara ng Volumes & Per Airway Resist Completed 07/18/2021 62905 Bronchospasm Evaluation Complete d 06/25/2021 76083 Office/Outpatient New Moderate M DM 45-59 Minutes Completed 06/25/2021 41582 Spirometry Completed 06/04/2021 83006 Office/Outpatient New Moderate M DM 45-59 Minutes Completed Medical Devices Description No Information Available Encounters Type Date Location Provider Dx Diagnosis Office Visit 08/07/2021 10:30a [facility] Pulmonary/Thoracic NATALY Miller J45.40 Moderate persistent asthma, uncomplicate d G47.33 Obstructive sleep apnea (florinda lt) (pediatric) Office Visit 08/07/2021 9:40a [facility] ENT Practice Gray Healy MD K12.0 Recurrent oral aphthae Office Visit 07/28/2021 8:00a [facility] ENT Practice Gray Healy MD R59.0 Localized enlarged lymph nodes K12.0 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 K50.812 Crohn's disease [...] 2:20 pm - Gray Healy MD at [facility] ENT Practice * 10/07/2021 3:30 pm - NATALY Ambrocio at [facility] Pulmonary/Thoracic * 09/08/2021 9:10 am - Gray Healy MD at [facility] ENT Practice 08/07/2021 - NATALY Ambrocio* J45.40 [...] biopsy of lymph nodes Closed 07/28/[address] [place] [address] [phone] Williams Sorenson MD 50 year old female with cer vical lymphadenopathy in 2018, when on HUmira ( used to follow in [place]), now referred to here and patient had incomplete lymph node analysis by FNA ( pathology reported dilute sample). Patient has some improvement of lymphadenopathy but not completely resolved. Please evaluate for Excisional biopsy of lymph nodes. Thank you. Created [address] [facility] [address] [place] [address] [phone] Maral Guillaume A.N.P. SOB, EDEN Closed 06/25/2021 [facility] Pulmonary [address] [place], [place] [address] [phone]
--- OUTSIDE RECORDS SUMMARY | 2021-09-12 12:13 | CCD | Continuity of Care Document ---
Author Author Teressa HEALY MD Organization Unknown Address [address] [facility] [address] [place] [address] Phone [phone] Care Team Providers Care Horse Racetrack Manager Name Role Phone YanickArabella P.A.-C AUTM [phone] AUTM Unavailable AUTM Unavailable Dai Echavarria M.D. AUTM [phone] Joni Vazquez M.D. AUTM Problems Active Problems [...] lb BMI (Body Mass Index) 30.4 kg/m2 [place] Body Weight 120 lb Weight 80.287 kg BSA (Body Surface Area) 1.86 m2 08/07/2021 10:04am BP Systolic 122 mmHg BP Diastolic 80 mmHg Heart Rate 84 /min O2 % BldC Oximetry 99 % Height 64 inches 5'4" Weight 173.00 lb BMI (Body Mass Index) 29.7 kg/m2 [place] Body Weight 120 lb Weight 78.473 kg BSA (Body Surface Area) 1.84 m2 Results Test Acquired Date Facility Test Result H/L Range Note Xray 06/27/2021 [facility] nter Radiology Dept [address] [place], [place] [address] [phone] Ultrasound Abdomen Complete 0 Complete Blood Count 06/25/2021 [facility] Mike Herrera enter Main Lab [address] [place] [address] [phone] White Blood Count 5.9 10 Normal 4.0-10.0 [...] % Normal 0-0 Laboratory test finding 06/25/2021 [facility] Main Lab [address] [place] [address] [phone] Erythrocyte Sedimentation Rate 2 mm/hr Normal 0 -20 Retic (Reticulocyte Count) 06/25/2021 [facility] Main Lab [address] [place] [address] [phone] Reticulocyte % 1.6 % High 0.5-1.5 Reticulocyte # 62.3 10 Normal 17-77 Retic Hemoglobin Equivalent 30.5 pg Normal 24-36 Laboratory test finding 06/25/2021 [facility] Main Lab [address] [place] [address] [phone] Retic (Reticulocyte Count) <pending> Total Iron Binding Capacit 06/25/2021 [facility] Main Lab [address] [place] [address] [phone] Iron (Fe) 73 g/dL Normal 50-170 Total Iron Binding Capacity 480 g/dL High 250-450 Percent Saturation 15.2 % Normal 13.2-45.0 FT4&TSH Panel 06/25/2021 [facility] nter Main Lab [address] [place] [address] [phone] Thyroid Stimulating Hormone 1.880 uIU/ML Normal 0. 358-3.740 Free T4 0.95 ng/dL Normal 0.76-1.46 Vitamin B12 & Folate 06/25/2021 [facility] enter Main Lab [address] [place] [address] [phone] Vitamin B12 Level 492 pg/mL Normal 1 Folate > 24.0 NG/ML Normal 2 Laboratory test finding 06/25/2021 [facility] Main Lab [address] [place] [address] [phone] Ferritin 11 NG/ML Normal 8-252 C Reactive Protein Quantitativ 0.70 mg/dL High 0.00-0.30 Jyoti Titer & Pattern [facility] [address] [place] [address] [phone] Jyoti (Hep2) Positive Abnormal . 3 Jyoti [...] L Fev6-%Pred-Pre 104 L Fev6-LLN 2.81 L Mvv8umf-Rokp 81 % Cjw9oyh-Eim 84 % Dvz6svf-%Pred-Pre 104 % Hbu1ivc-CXR 71 % Jnf6obw-Zcrv 98 % Wkz8mxw-Asz 100 % Kck2swk-%Pred-Pre 102 % FEFMax-Pred 6.80 L/E/sec FEFMax-Pre 7.76 L/E/sec FEFMax-%Pred-Pre 114 L/E/sec FEFMax-LLN 5.08 L/E/sec Sre9991-Ocro 2.84 L/E/sec Qlf2365-Eny 3.31 L/E/sec Sis8908-%Pred-Pre 116 L/E/sec Wup2513-DMI 1.60 L/E/sec ExpTime-Pre 4.33 sec Wan4mdw2-Gjok 83 % Fka7jmb7-Con 84 % Tlw3dvz4-%Pred-Pre 101 % Iom4vag8-VFR 74 % 1 VITAMIN B12 NORMAL RANGE [...] Nucleosomes, Histones Drug-induced SLE --------- Speckled Sm, SECURITY PROJECT MANAGER, SCL-70, SLE,MCTD,PSS (diffuse form), SS-A/SS-B Sjogrens --------- Nucleolar SCL-70, PM-1/SCL High titers Scleroderma, PM/DM --------- Centromere Centromere PSS (limited form) w/Crest syndrome variable --------- Nuclear Dot Sp100,d68-kpdycq Primary Biliary Cirrhosis --------- Nuclear GP210, Primary Biliary Cirrhosis Membrane oscar A,B,C --------- Performed at: RN - [facility] [address] [id number] Pulp House Supervisor: Kait Apple MD, Phone: [phone] Procedures Date Code Description Status 08/07/2021 07561 Office/Outpatient Established Mo d MDM 30-39 Min Completed 08/07/202153704 Office/Outpatient Established Lo w MDM 20-29 Min Completed 07/28/2021 01267 Office/Outpatient New Moderate M DM 45-59 Minutes Completed 07/28/2021 64131 Laryngoscopy Flexible Fiberoptic Diagnostic Completed 07/18/2021 75822 Diffusing Capacity Completed 07/18/2021 73511 Plethysmography Determination Clara ng Volumes & Per Airway Resist Completed 07/18/2021 05720 Bronchospasm Evaluation Complete d 06/25/2021 59284 Office/Outpatient New Moderate M DM 45-59 Minutes Completed 06/25/2021 13414 Spirometry Completed 06/04/2021 91427 Office/Outpatient New Moderate M DM 45-59 Minutes Completed Medical Devices Description No Information Available Encounters Type Date Location Provider Dx Diagnosis Office Visit 08/07/2021 10:30a [facility] Pulmonary/Thoracic NATALY Miller J45.40 Moderate persistent asthma, uncomplicate d G47.33 Obstructive sleep apnea (florinda lt) (pediatric) Office Visit 08/07/2021 9:40a [facility] ENT Practice Gray Healy MD K12.0 Recurrent oral aphthae Office Visit 07/28/2021 8:00a [facility] ENT Practice Gray Healy MD R59.0 Localized enlarged lymph nodes K12.0 Recurrent oral aphthae J31.0 Chronic rhinitis Office Visit 06/25/2021 10:00a [facility] Pulmonary/Thoracic NATALY Miller R06.02 Shortness of breath R05 Cough G47.33 Obstructive sleep apnea (florinda lt) (pediatric) Office Visit 06/04/2021 1:00p [facility] Gastroenterology Maribel Vazquez M.D. K50.812 [...] small and large intestine with intestinal obstruction Jnoi Vazquez M.D. 06/04/2021 R14.0 Abdominal distension (gaseous) C yuliya Vazquez M.D. 06/04/2021 R11.10 Regurgitation Joni Chen ala, M.D. 06/04/2021 R10.13 Epigastric pain Joni Chen ala, M.D. Plan of Treatment Future Appointment(s):* 09/19/2021 2:20 pm - Gray Healy MD at [facility] ENT Practice * 10/07/2021 3:30 pm - NATALY Ambrocio at [facility] Pulmonary/Thoracic * 09/08/2021 9:10 am - Gray Healy MD at [facility] ENT Practice 08/07/2021 - NATALY [...] excisional biopsy of lymph nodes Closed 07/28/[address] [place] [address] [phone] Williams Sorenson MD 50 year old female with cer vical lymphadenopathy in 2018, when on HUmira ( used to follow in [place]), now referred to here and patient had incomplete lymph node analysis by FNA ( pathology reported dilute sample). Patient has some improvement of lymphadenopathy but not completely resolved. Please evaluate for Excisional biopsy of lymph nodes. Thank you. Created [address] [facility] [address] [place] [address] [phone] Maral Guillaume A.N.P. SOB, EDEN Closed 06/25/2021 [facility] Pulmonary [address] [place], [place] [address] [phone]
--- OUTSIDE RECORDS SUMMARY | 2021-09-12 12:13 | CCD ---
Author Author [facility] Organization [facility] Address Unknown Phone Unavailable Care Team Providers Care Trimmer Tailer Name Role Phone Dai Echavarria Unavailable PROBLEMS Type Condition ICD9-CM Code BOQ75-WT Code Onset Dates Condition S tatus W/U Status Risk SNOMED Code Notes Problem Crohn''s disease of both small and large intestine without complication K50.80 Active confirmed 20647516 Problem Anemia due to folic acid deficiency, unspecified deficiency type D52.9 Active confirmed 40768644 Problem Raynaud''s disease without gangrene I73.00 Acti ve confirmed 625430839 Problem History of IBS Z87.19 Active confirmed 30287 529848412 Problem Degenerative disc disease, cervical M50.30 Acti ve confirmed 86467268 Problem Migraine without aura and with status migrainosu s, not intractable G43.001 Active confirmed 184136432 Problem Iron deficiency anemia, unspecified iron deficiency an emia type D50.9 Active confirmed 28044059 Problem PMS (premenstrual syndrome) N94.3 Active confirmed 01847647 Problem Menorrhagia with regular cycle N92.0 Active confir med 375165815 Problem Endometriosis N80.9 Active confirmed 337271 003 Problem Gastroesophageal reflux disease, esophagitis pre sence not specified K21.9 Active confirmed 226528945 Problem Pap smear of cervix shows high risk HPV present R8 7.810 Active confirmed 161428676 Problem Breakthrough bleeding on control pills N92.1 Active confirmed 27437130 Problem Left ovarian cyst N83.202 Active confirmed 1 8678364401462793 Problem At risk for breast cancer Z91.89 Active confirmed 319671179 Problem Amenorrhea N91.2 Active confirmed 77611803 Problem Mixed hyperlipidemia E78.2 Active confirmed 960615612 Problem Cerebral aneurysm I67.1 Active confirmed 12 9291079 Problem Insomnia, unspecified type G47.00 Active confirmed 223996354 Problem Perimenopausal N95.1 Active confirmed 62229 7296420405 Problem EDEN (obstructive sleep apnea) G47.33 Active confirm ed 70223684 Problem Allergic rhinitis, cause unspecified J30.9 Act allison confirmed 35355958 Problem Other chronic pain G89.29 Active confirmed 8 2361255 Problem Family history of breast cancer in mother Z80.3 Active confirmed 289069296 Problem Vitamin D deficiency E55.9 Active confirmed 04315512 Problem Anxiety F41.9 Active confirmed 43040454 Problem Other local lupus erythematosus L93.2 Active confi rmed 09112686 Problem Hypothyroidism, unspecified type E03.9 Active conf irmed 29060436 Problem Daytime somnolence R40.0 Active confirmed 1 54111187006 ALLERGIES Allergen (clinical drug ingredient) Drug/Non Drug Allergy do cumented on EMR Reaction Allergy Type Onset Date Status metoclopramide Reglan([facility] Code:[address]-52) feels lik e i want to jump out of my skin Drug Allergy Active adalimumab Humira([facility] Code:[address]-80) Edema, Generalize d Weakness/Pain Drug Allergy Active Amoxicillin Hives Drug Allergy Active metaxalone Skelaxin([facility] Code:[address]-71) diffuse edema Drug Allerg y Active ENCOUNTERS from 1972 to 2021-08-25 Encounter Location Date Provider Diagnosis [place] [address] [facility] [phone] [place] [address] Jul, 2021 Dai [place] IMMUNIZATIONS Vaccine Route Administration Date [...] Notes Total Score: 1 Interpretation: Alcohol Education Oriental Orthodox: Question Answer Notes Oriental Orthodox 13 Judaism Sexual Hx: Question Answer Notes Had sex [...] MG 1 tablet as neede d Orally/Reference #:[id number] twice daily for pain (MDD: 2) for 14 day(s) Jul, Active Methotrexate 2.5 MG as directed Orally 5 pills every Wednesday Active ALPRAZolam 0.25 MG 1 tablet Orally/Reference #: [id number] Twice a day as needed (MDD: 2) [...] MG 1 tablet as neede d Orally/Reference #:[id number] twice daily for pain (MDD: 2) for 14 day(s) Jul, SUMAtriptan Succinate 100 MG 1 tablet at least 2 hours between doses as needed Oral as directed for 30 Days Magnesium Oxide 400 (241.3 Mg) MG 1 tablet with food O rally Once a day for 30 day(s) Jul, ALPRAZolam 0.25 MG 1 tablet Orally/Reference #: [id number] Twice a day as needed (MDD: 2) for 30 Days Jul, busPIRone HCl 15 MG 1 tablet Orally Twice a day for 30 Days Next Appt Details Provider Name:Dai Echavarria, 2021-09-05 09:00:00 AM, [address] [place] [address], , [place], [address], Provider Name:Birdie Evangelista, 2021-09-25 11:20:00 AM, [address] [place] [address], , [place], [address], Insurance Providers Payer Name Payer Address Payer Phone Insured Name Patient Relati onship to Insured Coverage Start Date Coverage End Date [facility] [place] [address] [address] [facility] [id number] MICHELLE KNIGHT self
--- OUTSIDE RECORDS SUMMARY | 2021-09-12 12:14 | CCD | Continuity of Care Document ---
Author Author Teressa ANGUIANO ANP Organization Unknown Address [address] [place] [address] Phone [phone] Care Team Providers Care Tank Charger Name Role Phone Arabella Herndon P.A.-C AUTM [phone] AUTM Unavailable AUTM Unavailable Dai Echavarria M.D. AUTM [phone] Joni Vazquez M.D. AUTM Problems Active Problems Provider Date Obstructive sleep apnea syndrome NATALY Ambrocio Onset: 06/25/2021 Cough NATALY Ambrocio Onset: 06/25/2021 Dyspnea NATALY Ambrocio Onset: 06/25/2021 Social History Type Date Description Comments Sex Unknown ETOH Use Rarely Tobacco Use Start: Unknown Non Smoker Recreational Drug Use Denies Drug Use Smoking Status Reviewed: 08/07/21 Non Smoker Allergies, Adverse Reactions, Alerts Active Allergies Criticality Reaction | Severity Comments Date Amoxicillin Unable to assess criticality 06/04/2021 Reglan Unable to assess criticality Anxiety 06/04/2021 Skelaxin Unable to assess criticality edema 06/04/2021 Tizanidine Unable to assess criticality 07/28/2021 Albuterol Sulfate Unable to assess criticality palpita tions 08/07/2021 Medications Active Medications SIG Qnty Indications Ordering Provide r Date Arnuity Ellipta 200mcg/Act Aerosol 1 puff every day 30units NATALY Ambrocio 08/07/2021 Levalbuterol Tartrate 45mcg/Act Ae rosol inhale 2 puffs by mouth four times daily as needed 15gm NATALY Ambrocio 08/07/2021 Clenpiq 10-3.5-12mg-GM -GM/160ML S [...] 4 week. 180caps Joni schwab M.D. 07/30/2021 Dexamethasone 0.5mg/5ML Solution dexamethasone 20 milliliters, benadryl 160 milliliters, nystatin 60 milliliters, amoxicillin 1500 mgm rinse mouth with 5 milliliters and swa 480ml K12.0 Gray Healy MD 07/28/2021 Sinus Rinse Bottle Kit Packet use once daily 3Months J31.0 Gray Healy MD 07/28/2021 CPAP Device 6cm lcw NATALY Ambrocio 07/22/2021 Colace 100mg Capsules 1 tab orally twice a day before meal. (increase to 3 per day if persistent contipation and hold/decrease if having diarrhea) 90caps K50.812 Joni morse M.D. 07/09/2021 Vitamin B Complex Tablets On ce daily Unknown Drospirenone-Ethinyl Estradiol 3-0.02mg Tablets Take 1 Tablet By Mouth Every Day Nish Evangelista A.R.N.PPark Folic Acid 1mg Tablets Lenore Paul M.D. [...] 1 tab by mouth every day Unknown B12 Injection once a month Unknown 0 Pantoprazole Sodium 40mg Tablets D R 1 by mouth every day 60tabs Unknown Immunizations Description No Information Available Vital Signs Date Vital Result Comment 08/07/2021 10:04am BP Systolic 122 mmHg BP Diastolic 80 mmHg Heart Rate 84 /min O2 % BldC Oximetry 99 % Height 64 inches 5'4" Weight 173.00 lb BMI (Body Mass Index) 29.7 kg/m2 [place] Body Weight 120 lb Weight 78.473 kg BSA (Body Surface Area) 1.84 m2 08/07/2021 9:20am Height 64 inches 5'4" Weight 173.00 lb BMI (Body Mass Index) 29.7 kg/m2 [place] Body Weight 120 lb Weight 78.473 kg BSA (Body Surface Area) 1.84 m2 Results Test Acquired Date Facility Test Result H/L Range Note Xray 06/27/2021 [facility] n[facility] Radiology Dept [address], [place] [id number] [phone] Ultrasound Abdomen Complete 0 Complete Blood Count 06/25/2021 [facility] enter Main Lab [address] [place] [address] [phone] White Blood Count 5.9 10 Normal 4.0-10.0 [...] % Normal 0-0 Laboratory test finding 06/25/2021 [facility] Main Lab [address] [place] [address] [phone] Erythrocyte Sedimentation Rate 2 mm/hr Normal 0 -20 Retic (Reticulocyte Count) 06/25/2021 [facility] Main Lab [address] [place] [address] [phone] Reticulocyte % 1.6 % High 0.5-1.5 Reticulocyte # 62.3 10 Normal 17-77 Retic Hemoglobin Equivalent 30.5 pg Normal 24-36 Laboratory test finding 06/25/2021 [facility] Main Lab [address] [place] [address] [phone] Retic (Reticulocyte Count) <pending> Total Iron Binding Capacit 06/25/2021 [facility] Main Lab [address] [place] [address] [phone] Iron (Fe) 73 g/dL Normal 50-170 Total Iron Binding Capacity 480 g/dL High 250-450 Percent Saturation 15.2 % Normal 13.2-45.0 FT4&TSH Panel 06/25/2021 [facility] nter Main Lab [address] [place] [address] [phone] Thyroid Stimulating Hormone 1.880 uIU/ML Normal 0. 358-3.740 Free T4 0.95 ng/dL Normal 0.76-1.46 Vitamin B12 & Folate 06/25/2021 [facility] enter Main Lab [address] [place] [address] [phone] Vitamin B12 Level 492 pg/mL Normal 1 Folate > 24.0 NG/ML Normal 2 Laboratory test finding 06/25/2021 [facility] Main Lab [address] [place] [address] [phone] Ferritin 11 NG/ML Normal 8-252 C Reactive Protein Quantitativ 0.70 mg/dL High 0.00-0.30 Jyoti Titer & Pattern 06/25/2021 [facility] nter Main Lab [address] [place] [address] [phone] Jyoti (Hep2) Positive Abnormal . 3 Jyoti [...] L Fev6-%Pred-Pre 104 L Fev6-LLN 2.81 L Epr5noq-Pcop 81 % Kti2lre-Ssf 84 % Wuj2qyv-%Pred-Pre 104 % Olu7qkd-OKS 71 % Zqm0neq-Pmma 98 % Mbl9mwc-Tac 100 % Cwc0hgn-%Pred-Pre 102 % FEFMax-Pred 6.80 L/E/sec FEFMax-Pre 7.76 L/E/sec FEFMax-%Pred-Pre 114 L/E/sec FEFMax-LLN 5.08 L/E/sec Hck3132-Jtxv 2.84 L/E/sec Evk5654-Yzj 3.31 L/E/sec Yoy2985-%Pred-Pre 116 L/E/sec Zsa4232-FTF 1.60 L/E/sec ExpTime-Pre 4.33 sec Xue7fdw8-Qbzg 83 % Cjv4ueh3-Seq 84 % Qse7rph1-%Pred-Pre 101 % Ard8zai7-IVX 74 % 1 VITAMIN B12 NORMAL RANGE [...] more information about Hep-2 cell patterns use Code for Americapatterns.org, the official website for the International Consensus on Antinuclear Antibody (JYOTI) Patterns (ICAP). A positive JYOTI result may occur in healthy individuals (low titer) or be associated with a variety of diseases. See interpretation chart which is not all inclusive: . Pattern Antigen Detected Suggested Disease Association --------- Homogeneous DNA(ds,ss), SLE - High titers Nucleosomes, Histones Drug-induced SLE --------- Speckled Sm, APPLICATIONS SYSTEMS ENGINEER, SCL-70, SLE,MCTD,PSS (diffuse form), SS-A/SS-B Sjogrens --------- Nucleolar SCL-70, PM-1/SCL High titers Scleroderma, PM/DM --------- Centromere Centromere PSS (limited form) w/Crest syndrome variable --------- Nuclear Dot Sp100,d70-rcxqga Primary Biliary Cirrhosis --------- Nuclear GP210, Primary Biliary Cirrhosis Membrane oscar A,B,C --------- Performed at: RN - [facility] [address] [id number] Knit Goods Washer: Kait Apple MD, Phone: [phone] Procedures Date Code Description Status 07/28/2021 71047 Office/Outpatient New Moderate M DM 45-59 Minutes Completed 07/28/2021 46141 Laryngoscopy Flexible Fiberoptic Diagnostic Completed 07/18/2021 15364 Diffusing Capacity Completed 07/18/2021 64117 Plethysmography Determination Clara ng Volumes & Per Airway Resist Completed 07/18/2021 73208 Bronchospasm Evaluation Complete d 06/25/2021 07877 Office/Outpatient New Moderate M DM 45-59 Minutes Completed 06/25/2021 41088 Spirometry Completed 06/04/2021 37925 Office/Outpatient New Moderate M DM 45-59 Minutes Completed Medical Devices Description No Information Available Encounters Type Date Location Provider Dx Diagnosis Office Visit 07/28/2021 8:00a [facility] Gray Healy MD R59.0 Localized enlarged lymph nodes K12.0 Recurrent oral aphthae J31.0 Chronic rhinitis Office Visit 06/25/2021 10:00a [facility] Pulmonary/Thoracic Maral To wne, ANP R06.02 Shortness of breath R05 Cough G47.33 Obstructive sleep apnea (florinda lt) (pediatric) Office Visit 06/04/2021 1:00p [facility] Joni Vazquez M.D. K50.812 Crohn's disease of both smal l and lg int w intestinal obst R14.0 Abdominal distension (gaseou s) R11.10 Vomiting, unspecified R10.13 Epigastric pain Assessments Date Code Description Provider 08/07/2021 J45.40 Moderate persistent asthma, unco mplicated NATALY Ambrocio 08/07/2021 G47.33 Obstructive sleep apnea (adult) (pediatric) NATALY Ambrocio 07/28/2021 R59.0 Localized enlarged lymph nodes Kamla Healy MD 07/28/2021 K12.0 Recurrent oral aphthae [...] ala, M.D. Plan of Treatment Future Appointment(s):* 10/07/2021 3:30 pm - NATALY Ambrocio at [facility]Th[facility]acic * 09/08/2021 9:10 am - Gray Healy MD at [facility] * 08/27/2021 1:00 pm - Joni Vazquez M.D. at [facility]astroenterology [facility] * 08/15/2021 2:10 pm - Joni Vazquez M.D. at [facility] 08/07/2021 - NATALY Ambrocio* J45.40 Moderate [...] excisional biopsy of lymph nodes Closed 07/28/[address] [place] [phone] Williams Sorenson MD 50 year old female with cer vical lymphadenopathy in 2018, when on HUmira ( used to follow in [place]), now referred to here and patient had incomplete lymph node analysis by [facility] ( pathology reported dilute sample). Patient has some improvement of lymphadenopathy but not completely resolved. Please evaluate for Excisional biopsy of lymph nodes. Thank you. Created [address] [place] [address] [phone] Maral Anguiano A.N.P. SOB, EDEN Closed 06/25/2021 [facility] Pulmonary [address] [place], [place] [address] [phone]
--- OUTSIDE RECORDS SUMMARY | 2021-09-12 12:14 | CCD ---
Author Author [facility] Organization [facility] Address Unknown Phone Unavailable Care Team Providers Care Gallery Or Museum Guide Name Role Phone Arabella Herndon Unavailable PROBLEMS Type Condition ICD9-CM Code QOW79-OS Code Onset Dates Condition S tatus W/U Status Risk SNOMED Code Notes Problem Crohn''s disease of both small and large intestine without complication K50.80 Active confirmed 13451432 Problem Anemia due to folic acid deficiency, unspecified deficiency type D52.9 Active confirmed 11008442 Problem Raynaud''s disease without gangrene I73.00 Acti ve confirmed 299364096 Problem History of IBS Z87.19 Active confirmed 15089 918660258 Problem Degenerative disc disease, cervical M50.30 Acti ve confirmed 73361687 Problem Migraine without aura and with status migrainosu s, not intractable G43.001 Active confirmed 612864651 Problem Iron deficiency anemia, unspecified iron deficiency an emia type D50.9 Active confirmed 48213968 Problem PMS (premenstrual syndrome) N94.3 Active confirmed 97341177 Problem Menorrhagia with regular cycle N92.0 Active confir med 819304950 Problem Endometriosis N80.9 Active confirmed 370570 003 Problem Gastroesophageal reflux disease, esophagitis pre sence not specified K21.9 Active confirmed 465759354 Problem Pap smear of cervix shows high risk HPV present R8 7.810 Active confirmed 287546906 Problem Breakthrough bleeding on control pills N92.1 Active confirmed 07152693 Problem Left ovarian cyst N83.202 Active confirmed 1 8171252407112587 Problem At risk for breast cancer Z91.89 Active confirmed 753012518 Problem Amenorrhea N91.2 Active confirmed 36534886 Problem Mixed hyperlipidemia E78.2 Active confirmed 922162173 Problem Cerebral aneurysm I67.1 Active confirmed 12 7502324 Problem Insomnia, unspecified type G47.00 Active confirmed 061129631 Problem Perimenopausal N95.1 Active confirmed 86196 0883857873 Problem EDEN (obstructive sleep apnea) G47.33 Active confirm ed 10153240 Problem Allergic rhinitis, cause unspecified J30.9 Act allison confirmed 95510916 Problem Other chronic pain G89.29 Active confirmed 8 4380637 Problem Family history of breast cancer in mother Z80.3 Active confirmed 403816725 Problem Vitamin D deficiency E55.9 Active confirmed 59364779 Problem Anxiety F41.9 Active confirmed 50155437 Problem Other local lupus erythematosus L93.2 Active confi rmed 64163398 Problem Hypothyroidism, unspecified type E03.9 Active conf irmed 35006009 Problem Daytime somnolence R40.0 Active confirmed 1 98621294434 ALLERGIES Allergen (clinical drug ingredient) Drug/Non Drug Allergy do cumented on EMR Reaction Allergy Type Onset Date Status metoclopramide Reglan([facility] Code:[address]-70) feels lik e i want to jump out of my skin Drug Allergy Active adalimumab Humira([facility] Code:[address]-81) Edema, Generalize d Weakness/Pain Drug Allergy Active Amoxicillin Hives Drug Allergy Active metaxalone Skelaxin(ND[facility] Code:[address]-14) diffuse edema Drug Allerg y Active ENCOUNTERS from 1972 to 2021-08-04 Encounter Location Date Provider Diagnosis [place] [address] [facility] [phone] [place] [address] Jul, Arabella Yanick Cervical pain M54.2 and Anxi ety F41.9 IMMUNIZATIONS Vaccine Route Administration Date Status [...] Notes Total Score: 1 Interpretation: Alcohol Education Muslim: Question Answer Notes Muslim 13 Jain Sexual Hx: Question Answer Notes Had sex [...] Notes Start Da te End Date Status Vitamin B2 400mg bid Active Linzess 72 MCG 1 capsule at least 30 minute s before the first meal of the day on an empty stomach Orally Once a day for 30 day(s) Active Protonix 40 MG 2 tablets Orally twice daily for 30 days Active lamoTRIgine 25 MG 2 tablets Orally once a day Active Magnesium Oxide 400 (241.3 Mg) MG 1 tablet with food O rally Once a day for 30 day(s) Jul, Active hydrOXYzine HCl 50 MG 1-2 tablets as needed Orally three times a day as needed for 30 day(s) March, Active Methotrexate 2.5 MG as directed Orally 5 pills every Wednesday Active Diana Allergy 180 MG 1 tablet as needed Orally Once a day Active May Have iron injections asdir Ac tive Stelara 45 MG/0.5ML as directed Subcutaneous onc e now and then once after 4 weeks, then every 3 months for 90 days Apr, Active Sertraline HCl 50 MG 1 tablet Orally Once a day ( with 100mg dose for total of 150mg) for 30 day(s) Oct, Active Hyoscyamine 0.375 MG as directed Orally Active Scopolamine 1 MG/3DAYS 1 patch to skin behind the e ar as needed Transdermal for 30 day(s) Active SUMAtriptan Succinate 100 MG 1 tablet at least 2 hours between doses as needed Oral as directed for 30 Days Act allison Zoloft 100 MG 1 tablet Orally Once a day for 30 Active Levothyroxine Sodium 50 MCG 1 capsule in the morning o n an empty stomach Orally Once a day for 30 day(s) March, Active Hydrocortisone Acetate 25 MG 1 suppository Rectal Once a day for 14 day(s) May, Active Gummies/DHA & FA 0.4-32.5 MG Orally Active Mouthwashes - COMPOUNDING, equal parts Maa lox, Benedryl and Viscous Lidocaine Mouth/Throat 10ml every 3 hours, up to 6x per day for 7 day(s) 0 2 May, 2021 Active Vitamin D3 2000 UNIT 1 capsule Orally Once a day Active HYDROcodone-Acetaminophen 7.5-325 MG 1 tablet as neede d Orally/Reference #:[id number] twice daily for pain (MDD: 2) for 14 day(s) Jul, Active Sudafed 30 MG 1 tablet as needed Orally every 6 hrs Active Botox 100 UNIT Injection 32 injections for migraine Active Imitrex STATdose Refill 6 MG/0.5ML 1 injection Subcutaneous as needed Active ALPRAZolam 0.25 MG 1 tablet Orally/Reference #: [id number] Twice a day as needed (MDD: 2) for 30 Days Jul, Active FRANK 3-0.02 MG 1 tablet Orally Once a day for 84 days 2019 Active traZODone HCl 50 MG 1-2 tablets at bedtime as needed Orally Once a day for 30 Active Ibuprofen 800 MG 1 tablet with food or milk a s needed Orally Three times a day for 30 Active busPIRone HCl 15 MG 1 tablet Orally Twice a day for 30 Active Flonase 50 MCG/DOSE 1 spray in each nostril Nasally Once a day as nee ded Active Aspir-81 81 MG 1 tablet Orally Once a day Active Zofran 8 mg 1 tab(s) Orally as needed for nausea for 30 days Active Cyanocobalamin 1000 MCG/ML 1 ml intramuscularly once a month for 90 day(s) May, Active 3 ml syringe 25 gauge 1 1/2" needle Intramuscularly once a m [facility] for 90 day(s) May, Active PROCEDURES No Information RESULTS No Results REASON FOR VISIT No Information MEDICAL (GENERAL) HISTORY Type Description Date Medical [...] mutation and uncertain variant Medical History Elza Cherryck score 30.5 % Medical History Bubble study [...] Notes Treatment Notes Treatm ent Clinical Notes Jul, Cervical pain (ICD-10 - M54.2) Jul, Anxiety (ICD-10 - F41.9) PLAN OF TREATMENT Medication Medication Name Sig Start Date Stop Date HYDROcodone-Acetaminophen 7.5-325 MG 1 tablet as neede d Orally/Reference #:[id number] twice daily for pain (MDD: 2) for 14 day(s) Jul, traZODone HCl 50 MG 1-2 tablets at bedtime as needed Orally Once a day for 30 Magnesium Oxide 400 (241.3 Mg) MG 1 tablet with food O rally Once a day for 30 day(s) Jul, ALPRAZolam 0.25 MG 1 tablet Orally/Reference #: [id number] Twice a day as needed (MDD: 2) for 30 Days Jul, Next Appt Details Provider Name:Birdie Catjac, 2021-08-06 02:40:00 PM, [address] [place] [address], , [place], [address], Provider Name:Dai Echavarria, 2021-09-05 09:00:00 AM, [address] [place] [address], , [place], [address], Insurance Providers Payer Name Payer Address Payer Phone Insured Name Patient Relati onship to Insured Coverage Start Date Coverage End Date [place] [address] [address] [facility] [id number] MICHELLE KNIGHT self
--- OUTSIDE RECORDS SUMMARY | 2021-09-12 12:14 | CCD ---
Author Author [facility] Organization [facility] Address Unknown Phone Unavailable Care Team Providers Care Oil Well Shooter Name Role Phone Arabella Herndon Unavailable PROBLEMS Type Condition ICD9-CM Code DBL88-RQ Code Onset Dates Condition S tatus W/U Status Risk SNOMED Code Notes Problem Crohn''s disease of both small and large intestine without complication K50.80 Active confirmed 39328811 Problem Anemia due to folic acid deficiency, unspecified deficiency type D52.9 Active confirmed 10083419 Problem Raynaud''s disease without gangrene I73.00 Acti ve confirmed 573497090 Problem History of IBS Z87.19 Active confirmed 77629 254984706 Problem Degenerative disc disease, cervical M50.30 Acti ve confirmed 73925654 Problem Migraine without aura and with status migrainosu s, not intractable G43.001 Active confirmed 193067228 Problem Iron deficiency anemia, unspecified iron deficiency an emia type D50.9 Active confirmed 49495178 Problem PMS (premenstrual syndrome) N94.3 Active confirmed 15005655 Problem Menorrhagia with regular cycle N92.0 Active confir med 575077086 Problem Endometriosis N80.9 Active confirmed 007798 003 Problem Gastroesophageal reflux disease, esophagitis pre sence not specified K21.9 Active confirmed 145102282 Problem Pap smear of cervix shows high risk HPV present R8 7.810 Active confirmed 361091443 Problem Breakthrough bleeding on control pills N92.1 Active confirmed 39755415 Problem Left ovarian cyst N83.202 Active confirmed 1 [id number] Problem At risk for breast cancer Z91.89 Active confirmed 134464367 Problem Amenorrhea N91.2 Active confirmed 45172943 Problem Mixed hyperlipidemia E78.2 Active confirmed 116566540 Problem Cerebral aneurysm I67.1 Active confirmed 12 9582613 Problem Insomnia, unspecified type G47.00 Active confirmed 080921836 Problem Perimenopausal N95.1 Active confirmed 21864 6080342611 Problem EDEN (obstructive sleep apnea) G47.33 Active confirm ed 25217260 Problem Allergic rhinitis, cause unspecified J30.9 Act allison confirmed 51507706 Problem Other chronic pain G89.29 Active confirmed 8 1340765 Problem Family history of breast cancer in mother Z80.3 Active confirmed 936680124 Problem Vitamin D deficiency E55.9 Active confirmed 45903758 Problem Anxiety F41.9 Active confirmed 95876285 Problem Other local lupus erythematosus L93.2 Active confi rmed 05445495 Problem Hypothyroidism, unspecified type E03.9 Active conf irmed 12495812 Problem Daytime somnolence R40.0 Active confirmed 1 28048795838 ALLERGIES Allergen (clinical drug ingredient) Drug/Non Drug Allergy do cumented on EMR Reaction Allergy Type Onset Date Status metoclopramide Reglan([facility] Code:[address]-41) feels lik e i want to jump out of my skin Drug Allergy Active adalimumab Humira(ND Code:[address]-20) Edema, Generalize d Weakness/Pain Drug Allergy Active Amoxicillin Hives Drug Allergy Active metaxalone Skelaxin(NDC Code:[address]-95) diffuse edema Drug Allerg y Active ENCOUNTERS from 1972 to 2021-08-08 Encounter Location Date Provider Diagnosis [address] [phone] [place] [address] Jun, Arabella Yanick Other chronic pain G89.29 ; Iron deficiency anemia, unspecified iron deficiency anemia type D50.9 ; Gastroesophageal reflux disease, esophagitis presence not specified K21.9 ; Migraine without aura and with status migrainosus, not intractable G43.001 ; Crohn''s disease of both small and large intestine without complication K50.80 ; Anxiety F41.9 ; Other local lupus erythematosus L93.2 ; Hypothyroidism, unspecified type E03.9 ; EDEN (obstructive sleep apnea) G47.33 and Muscle pain M79.10 IMMUNIZATIONS Vaccine Route Administration Date Status Depo-Provera [...] Notes Total Score: 1 Interpretation: Alcohol Education Mu-Ism: Question Answer Notes Mu-Ism 13 Orthodoxy Sexual Hx: Question Answer Notes Had sex [...] never smoker never smoker REASON FOR REFERRAL from 1972 to 2021-08-08 Reason 50y/o female with chronic pa in Diagnosis 1 Other chronic pain (G89.29) Referral Organization [facility] Referring Provider First Name Arabella Referring Provider Last Name Yanick Referring Provider Specialty Family Medicine Referred Provider Joanna Urena [facility] Referred Provider Specialty Family Medicine Referral Priority Routine General Notes Chaparrita Yu 07/24/2021 9:22:38 AM > referral faxed Clinical Notes Chaparrita Yu 08/01/2021 11:42:33 AM > Called to check on the status of her referral they have it, it has been reviewed.They are going to call today or Wednesday to get her scheduled with them, once she is scheduled with them, they will reach out to our office with her appointment time VITAL SIGNS Weight 171 lbs Jun, Weight-kg 77.57 kg Jun, Height 64.5 in Jun, BMI 28.90 kg/m2 Jun, Heart Rate 92 once on the scale for about 10 secind s jumped up to 115 /min Jun, Respiratory Rate 20 /min Jun, Temperature 98.0 degrees Fahrenheit Jun, Oximetry 99 Jun, Blood pressure systolic 120 mm Hg Jun, Blood pressure diastolic 74 mm Hg Jun, MEDICATIONS Medication SIG (Take, Route, Frequency, Duration) Notes Start Da te End Date Status Aspir-81 81 MG 1 tablet Orally Once a day Active Vitamin D3 2000 UNIT 1 capsule Orally Once a day Active Sertraline HCl 50 MG 1 tablet Orally Once a day ( with 100mg dose for total of 150mg) for 30 day(s) Oct, Active Stelara 45 MG/0.5ML as directed Subcutaneous onc e now and then once after 4 weeks, then every 3 months for 90 days Apr, Active Sudafed 30 MG 1 tablet as needed Orally every 6 hrs Active Diana Allergy 180 MG 1 tablet as needed Orally Once a day Active Imitrex STATdose Refill 6 MG/0.5ML 1 [...] day for 30 day(s) March, Not-Chriss ing Gummies/DHA & FA 0.4-32.5 MG Orally Active Hyoscyamine 0.375 MG as directed Orally Active FRANK 3-0.02 MG 1 tablet Orally Once a day for 84 days 2019 Active May Have iron injections asdir Ac tive Flonase 50 MCG/DOSE 1 spray in each nostril Nasally Once a day as nee ded Active lamoTRIgine 25 MG 2 tablets Orally once a day Active Zoloft 100 MG 1 tablet Orally Once a day for 30 Active Zofran 8 mg 1 tab(s) Orally as needed for nausea for 30 days Active Mouthwashes - COMPOUNDING, equal parts Maa lox, Benedryl and Viscous Lidocaine Mouth/Throat 10ml every 3 hours, up to 6x per day for 7 day(s) 0 May, Not-Taking HYDROcodone-Acetaminophen 7.5-325 MG 1 tablet as neede d Orally/Reference #:[id number] twice daily for pain (MDD: 2) for 14 day(s) Jul, Active Magnesium Oxide 400 (241.3 Mg) MG 1 tablet with food O rally Once a day for 30 day(s) Jul, Active Vitamin B2 400mg bid Active ALPRAZolam 0.25 MG 1 tablet Orally/Reference #: [id number] Twice a day as needed (MDD: 2) for 30 Days Jul, Active Ibuprofen 800 MG 1 tablet with food or milk a s needed Orally Three times a day for 30 Active Botox 100 UNIT Injection 32 injections for migraine Active Protonix 40 MG 2 tablets Orally twice daily for 30 days Active Scopolamine 1 MG/3DAYS 1 patch to skin behind the e ar as needed Transdermal for 30 day(s) Active Hydrocortisone Acetate 25 MG 1 suppository Rectal Once a day for 14 day(s) May, Active Methotrexate 2.5 MG as directed Orally 5 pills every Wednesday Active busPIRone HCl 15 MG 1 tablet Orally Twice a day for 30 Active SUMAtriptan Succinate 100 MG 1 tablet at least 2 hours between doses as needed Oral as directed for 30 Days Act allison 3 ml syringe 25 gauge 1 1/2" needle Intramuscularly once a m [facility] for 90 day(s) May, Active hydrOXYzine HCl 50 MG 1-2 tablets as needed Orally three times a day as needed for 30 day(s) March, Active Cyanocobalamin 1000 MCG/ML 1 ml intramuscularly once a month for 90 day(s) May, Active traZODone HCl 50 MG 1-2 tablets at bedtime as needed Orally Once a day for 30 Active PROCEDURES No Information RESULTS Component Value Reference Range CBC - Complete Blood Count Reviewed date:07/18/2021 15:31:05 Interpretation: Performing Lab:[facility], [facility] [address] [address] , ,[place] [address] WHITE BLOOD COUNT 7.9 4.0-10.0 RED BLOOD COUNT 3.77 4.00-5.40 HEMOGLOBIN 10.8 12.0-15.5 HEMATOCRIT 33.7 36.0-47.0 MEAN CORPUSCULAR VOLUME 89.4 80.0-96.0 MEAN CORPUSCULAR HEMOGLOBIN 28.6 27.0-33.0 MEAN CORPUSCULAR HGB CONC 32.0 32.0-36.5 RED CELL DISTRIBUTION WIDTH 16.2 11.5-14.5 PLATELET COUNT, AUTOMATED 262 150-450 CPK CREATINE PHOSPHOKINASE Reviewed date:07/18/2021 15:31:05 Interpretation: Performing Lab:[facility] [address] [place] [address] , ,[place] [address] CPK CREATINE PHOSPHOKINASE 41 26-192 Comprehensive Metabolic Profile (CMP) Reviewed date:07/18/2021 15:31:05 Interpretation: Performing Lab:[facility] [address] [place] [address] , ,[place] [address] GLUCOSE, FASTING 108 70-100 BLOOD UREA NITROGEN 9 7-18 CREATININE FOR GFR 0.74 0.55-1.30 GLOMERULAR FILTRATION RATE > 60.0 >58 SODIUM LEVEL 139 136-145 POTASSIUM SERUM 4.8 3.5-5.1 CHLORIDE LEVEL 108 98-107 CARBON DIOXIDE LEVEL 25 21-32 CALCIUM LEVEL 8.6 8.5-10.1 AST/SGOT 8 7-37 ALT/SGPT 17 12-78 ALKALINE PHOSPHATASE 35 45-117 BILIRUBIN,TOTAL 0.2 0.2-1.0 TOTAL PROTEIN 6.3 6.4-8.2 ALBUMIN 2.7 3.2-5.2 ALBUMIN/GLOBULIN RATIO 0.8 1.2-2.2 FERRITIN Reviewed date:07/18/2021 15:31:05 Interpretation: Performing Lab:[facility] [address] [address] , ,[place] [address] FERRITIN 10 8-252 MAGNESIUM LEVEL Reviewed date:07/18/2021 15:31:05 Interpretation: Performing Lab:[facility] [address] [address] , ,[place] [address] MAGNESIUM LEVEL 1.7 1.8-2.4 Reticulocyte Count Sysmex Reviewed date:07/18/2021 15:31:05 Interpretation: Performing Lab:[facility], [facility] [address] [address] , ,[facility] RETICULOCYTE % 1.5 0.5-1.5 TOTAL IRON BINDING CAPACIT Reviewed date:07/18/2021 15:31:05 Interpretation: Performing Lab:[facility], [facility] [address] [address] , ,[facility] IRON (FE) 84 50-170 TOTAL IRON BINDING CAPACITY 475 250-450 PERCENT SATURATION 17.7 13.2-45.0 REASON FOR VISIT numbness,tingling to joints/hands/body swollen MEDICAL (GENERAL) HISTORY Type Description Date Medical [...] Notes Treatment Notes Treatm ent Clinical Notes Jun, Other chronic pain (ICD-10 - G89.29) referral placed for patient to see Palliative Care per her request Jun, Iron deficiency anemia, unsp ecified iron deficiency anemia type (ICD-10 - D50.9) will recheck patient's CBC and and iron Jun, Gastroesophageal reflux dise ase, esophagitis presence not specified (ICD-10 - K21.9) on Prilosec daily Jun, Migraine without aura and wi th status migrainosus, not intractable (ICD-10 - G43.001) chronic, controlled with current medication regimen from neurology Jun, Crohn''s disease of both sma ll and large intestine without complication (ICD-10 - K50.80) patient is following with GI again, they have a plan set up for further imaging Jun, Anxiety (ICD-10 - F41.9) symptosm controlled on the Xanax Jun, Other local lupus erythematosus (ICD-10 - L93.2) patient is following with rheumatology in [place]- on methotrexate and a prednisone taper Jun, Hypothyroidism, unspecified type (ICD-10 - E03.9 ) patient stopped the levothyroxine, her levels have been normal since, will continue to monitor Jun, EDEN (obstructive sleep apnea) (ICD-10 - G47.33) patient is following with pulmonology for management Jun, Muscle pain (ICD-10 - M79.10) will check CMP, CMP, magnesium level patient should continue to use ice bath and the float pool for symptom relief may need to add a muscle relaxer Jun, Other Total time spen t with the patient on the day of the encounter: 45 minutes PLAN OF TREATMENT Medication Medication Name Sig Start Date Stop Date HYDROcodone-Acetaminophen 7.5-325 MG 1 tablet as neede d Orally/Reference #:[id number] twice daily for pain (MDD: 2) for 14 day(s) Jul, traZODone HCl 50 MG 1-2 tablets at bedtime as needed Orally Once a day for 30 Magnesium Oxide 400 (241.3 Mg) MG 1 tablet with food O rally Once a day for 30 day(s) Jul, ALPRAZolam 0.25 MG 1 tablet Orally/Reference #: [id number] Twice a day as needed (MDD: 2) for 30 Days Jul, Treatment Notes Assessment Notes Clinical Notes Other chronic pain referral placed for patient to see Palliative Care per her request Iron deficiency anemia, unspecified iron deficiency anemia t ype will recheck patient's CBC and and iron Gastroesophageal reflux disease, esophagitis presence not sp ecified on Prilosec daily Migraine without aura and with status migrainosus, not intra ctable chronic, controlled with current medication regimen from neurology Crohn''s disease of both small and large intestine without c omplication patient is following with GI again, they have a plan set up for further imaging Anxiety symptosm controlled on the Xanax Other local lupus erythematosus patient is following with rheumatology in [place]- on methotrexate and a prednisone taper Hypothyroidism, unspecified type patient stopped the levothyroxine, her levels have been normal since, will continue to monitor EDEN (obstructive sleep apnea) patient is following with pulmonology for management Muscle pain will check CMP, CMP, magnesium levelpatient should continue to use ice bath and the float pool for symptom reliefmay need to add a muscle relaxer Referrals Referral Date Details 50y/o female with chronic pa in, [facility] Care of Niraj Urena Next Appt Details 3 Months as scheduled with Dr. Italia antoine: Provider Name:Dai Echavarria, 2021-09-05 09:00:00 AM, [address] [place] [address], , [place], [address], Provider Name:Birdie Evangelista, 2021-09-25 11:20:00 AM, [address] [facility], , [place], [address], Insurance Providers Payer Name Payer Address Payer Phone Insured Name Patient Relati onship to Insured Coverage Start Date Coverage End Date JEIMY PINEDO [facility] [address] [facility] [id number] MICHELLE KNIGHT self
--- OUTSIDE RECORDS SUMMARY | 2021-09-12 12:14 | CCD | Continuity of Care Document ---
Author Author Teressa HEALY MD Organization Unknown Address [address] [facility] [address] [place] [address] Phone [phone] Care Team Providers Care Compliance Engineer Products Name Role Phone YanickArabella P.A.-C AUTM [phone] AUTM Unavailable AUTM Unavailable Dai Echavarria M.D. AUTM [phone] Joni Vazquez M.D. AUTM [phone] Problems Active Problems Provider Date Obstructive sleep apnea syndrome Maral Aundrea, ANP Onset: 06/25/2021 Cough Maral Aundrea, ANP Onset: 06/25/2021 Dyspnea Maral Aundrea, ANP Onset: 06/25/2021 Social History Type Date Description Comments Sex Unknown ETOH Use Rarely Tobacco Use Start: Unknown Non Smoker Recreational Drug Use Denies Drug Use Smoking Status Reviewed: 06/25/21 Non Smoker Allergies, Adverse Reactions, Alerts Active Allergies Criticality Reaction | Severity Comments Date Amoxicillin Unable to assess criticality 06/04/2021 Reglan Unable to assess criticality Anxiety 06/04/2021 Skelaxin Unable to assess criticality edema 06/04/2021 Tizanidine Unable to assess criticality 07/28/2021 Medications Active Medications SIG Qnty Indications Ordering Provide r Date Budesonide 3mg Caps DR Part 3 tabs by mouth once a day before dinner for 4 weeks then 2 tabs daily for next 4 weeks and then 1 tablet daily last 4 week. 180caps Joni schwab M.D. 07/30/2021 Dexamethasone 0.5mg/5ML Solution dexamethasone 20 ml, benadryl 160 ml, nystatin 60 ml, amoxicillin 1500 mgm rinse mouth with 5 ml and swallow tid 480ml K12.0 Gray Healy MD 07/28/2021 Sinus [...] Tablet By Mouth Every Day Nish Evangelista A.RParkNParkPPark Folic Acid 1mg Tablets Lneore Paul M.D. Methotrexate 2.5mg Tablets Take 5 [...] Available Vital Signs Date Vital Result Comment 07/28/2021 8:20am Height 64 inches 5'4" Weight 172.00 lb BMI (Body Mass Index) 29.5 kg/m2 Neptune Body Weight 120 lb Weight 78.019 kg BSA (Body Surface Area) 1.83 m2 06/25/2021 9:51am BP Systolic 124 mmHg BP Diastolic 72 mmHg Heart Rate 114 /min O2 % BldC Oximetry 97 % Height 64 inches 5'4" Weight 171.25 lb BMI (Body Mass Index) 29.4 kg/m2 Neptune Body Weight 120 lb Weight 77.679 kg BSA (Body Surface Area) 1.83 m2 Results Test Acquired Date Facility Test Result H/L Range Note Xray 06/27/2021 [facility] nter Radiology Dept [address] [place] [address] [id number] [phone] Ultrasound Abdomen Complete 0 Complete Blood Count 06/25/2021 [facility] Main Lab [address] [place] [address] [phone] White Blood Count 5.9 10 Normal 4.0-10.0 [...] % Normal 0-0 Laboratory test finding 06/25/2021 [facility] Main Lab [address] [place] [address] [id number] [phone] Erythrocyte Sedimentation Rate 2 mm/hr Normal 0 -20 Retic (Reticulocyte Count) 06/25/2021 [facility] Main Lab [address] [place] [address] [phone] Reticulocyte % 1.6 % High 0.5-1.5 Reticulocyte # 62.3 10 Normal 17-77 Retic Hemoglobin Equivalent 30.5 pg Normal 24-36 Laboratory test finding 06/25/2021 [facility] Main Lab [address] [place] [address] [phone] Retic (Reticulocyte Count) <pending> Total Iron Binding Capacit 06/25/2021 [facility] Main Lab [address] [place] [address] [phone] Iron (Fe) 73 g/dL Normal 50-170 Total Iron Binding Capacity 480 g/dL High 250-450 Percent Saturation 15.2 % Normal 13.2-45.0 FT4&TSH Panel 06/25/2021 [facility] Main Lab [address] [place] [address] [phone] Thyroid Stimulating Hormone 1.880 uIU/ML Normal 0. 358-3.740 Free T4 0.95 ng/dL Normal 0.76-1.46 Vitamin B12 & Folate 06/25/2021 [facility] Main Lab [address] [place] [address] [phone] Vitamin B12 Level 492 pg/mL Normal 1 Folate > 24.0 NG/ML Normal 2 Laboratory test finding 06/25/2021 [facility] Main Lab [address] [place], [place] [phone] Ferritin 11 NG/ML Normal 8-252 C Reactive Protein Quantitativ 0.70 mg/dL High 0.00-0.30 Jyoti Titer & Pattern 06/25/2021 [facility] Main Lab [address] [place], [place] [id number] [phone] Jyoti (Hep2) Positive Abnormal . 3 Jyoti [...] L Fev6-%Pred-Pre 104 L Fev6-LLN 2.81 L Add9rnc-Egps 81 % Hfp5cjg-Url 84 % Htz8hhh-%Pred-Pre 104 % Gin6hgu-IJF 71 % Ssh3usi-Hfoh 98 % Tnl3hoa-Jsh 100 % Kzf5bxv-%Pred-Pre 102 % FEFMax-Pred 6.80 L/E/sec FEFMax-Pre 7.76 L/E/sec FEFMax-%Pred-Pre 114 L/E/sec FEFMax-LLN 5.08 L/E/sec Tay0100-Tfwe 2.84 L/E/sec Oqw3721-Iir 3.31 L/E/sec Ghz3754-%Pred-Pre 116 L/E/sec Kwf0630-KIT 1.60 L/E/sec ExpTime-Pre 4.33 sec Omm9hih0-Izrx 83 % Ijt3hfg3-Hxi 84 % Knl1iuq1-%Pred-Pre 101 % Pqe4mdu2-KXG 74 % 1 VITAMIN B12 NORMAL RANGE [...] Nucleosomes, Histones Drug-induced SLE --------- Speckled Sm, EMPLOYMENT ASSISTANT, SCL-70, SLE,MCTD,PSS (diffuse form), SS-A/SS-B Sjogrens --------- Nucleolar SCL-70, PM-1/SCL High titers Scleroderma, PM/DM --------- Centromere Centromere PSS (limited form) w/Crest syndrome variable --------- Nuclear Dot Sp100,i36-tzmwzt Primary Biliary Cirrhosis --------- Nuclear GP210, Primary Biliary Cirrhosis Membrane oscar A,B,C --------- Performed at: [facility] [address] [id number] Message Broker Developer: Kait Apple MD, Phone: [phone] Procedures Date Code Description Status 07/28/2021 71392 Office/Outpatient New Moderate M DM 45-59 Minutes Completed 07/28/2021 16181 Laryngoscopy Flexible Fiberoptic Diagnostic Completed 07/18/2021 76006 Diffusing Capacity Completed 07/18/2021 58878 Plethysmography Determination Clara ng Volumes & Per Airway Resist Completed 07/18/2021 05376 Bronchospasm Evaluation Complete d 06/25/2021 13964 Office/Outpatient New Moderate M DM 45-59 Minutes Completed 06/25/2021 15952 Spirometry Completed 06/04/2021 19676 Office/Outpatient New Moderate M DM 45-59 Minutes Completed Medical Devices Description No Information Available Encounters Type Date Location Provider Dx Diagnosis Office Visit 07/28/2021 8:00a [facility] Gray Healy MD R59.0 Localized enlarged lymph nodes K12.0 Recurrent oral aphthae J31.0 Chronic rhinitis Office Visit 06/25/2021 10:00a [facility] Pulmonary/Thoracic NATALY Miller R06.02 Shortness of breath R05 Cough G47.33 Obstructive sleep apnea (florinda lt) (pediatric) Office Visit 06/04/2021 1:00p [facility] Gastroenterology Pra ctice Joni Vazquez M.D. K50.812 Crohn's disease of both smal l and lg int w intestinal obst R14.0 Abdominal distension (gaseou s) R11.10 Vomiting, unspecified R10.13 Epigastric pain Assessments Date Code Description Provider 07/28/2021 R59.0 Localized enlarged lymph nodes N [...] ala, M.D. Plan of Treatment Future Appointment(s):* 08/07/2021 10:30 am - NATALY Ambrocio at [facility] Pulmonary/Thoracic * 08/07/2021 9:40 am - Gray Healy MD at [facility]NT [facility] * 10/02/2021 3:40 pm - Joni Vazquez M.D. at [facility] Gastroenterology Practice * 09/19/2021 7:55 am - Joni Vazquez M.D. at [facility] Gastroenterology [facility] * 09/09/2021 1:30 pm - NATALY Ambrocio at [facility] Pulmonary/Thoracic 07/28/2021 - Gray Healy MD* R59.0 Localized enlarged lymph nodes* New Xrays:* CT Neck Soft Tissue W/O Contrast, Scheduled: 08/01/21 * K12.0 Recurrent oral aphthae* New Medication:* Dexamethasone 0.5 mg/5ML - dexamethasone 20 ml, benadryl 160 ml, nystatin 60 ml, amoxicillin 1500 mgm rinse mouth with 5 ml and swallow tid * J31.0 Chronic rhinitis* New Medication:* Sinus Rinse Bottle Kit - use once daily Functional Status Description No Information Available Mental Status Description No Information Available Referrals Refer to Dr Reason for Referral Status Appt Date Gray Healy M.D. Cervical lymphadenopathy in 2018, when on Humira incomplete lymph node anaysis by FNA, Evaluate for excisional biopsy of lymph nodes Closed 07/28/[address] [place], [place] [id number] [phone] Williams Sorenson MD 50 year old female with cer vical lymphadenopathy in 2018, when on HUmira ( used to follow in [place]), now referred to here and patient had incomplete lymph node analysis by FNA ( pathology reported dilute sample). Patient has some improvement of lymphadenopathy but not completely resolved. Please evaluate for Excisional biopsy of lymph nodes. Thank you. Created [address] [facility] [address] [place], [place] [id number] [phone] Maral Guillaume A.N.P. SOB, EDEN Closed 06/25/2021 [facility]monary [address] [place], [place] [id number] [phone]
--- OUTSIDE RECORDS SUMMARY | 2021-09-12 12:14 | CCD | Continuity of Care Document ---
Author Author Teressa HEALY MD Organization Unknown Address [address] [place] [address] Phone [phone] Care Team Providers Care Military Cook Name Role Phone YanickArabella P.A.-C AUTM [phone] AUTM Unavailable AUTM Unavailable Dai Echavarria M.D. AUTM [phone] Joni Vazquez M.D. AUTM [phone] Problems Active Problems Provider Date Obstructive [...] Tablet By Mouth Every Day Nish Evangelista A.R.NParkPPark Folic Acid 1mg Tablets Lenore Paul M.D. [...] lb BMI (Body Mass Index) 29.7 kg/m2 [place] Body Weight 120 lb Weight 78.473 kg BSA (Body Surface Area) 1.84 m2 08/07/2021 9:20am Height 64 inches 5'4" Weight 173.00 lb BMI (Body Mass Index) 29.7 kg/m2 [place] Body Weight 120 lb Weight 78.473 kg BSA (Body Surface Area) 1.84 m2 Results Test Acquired Date Facility Test Result H/L Range Note Xray 06/27/2021 [facility] nter Radiology Dept [address] [place], [place] [address] [phone] Ultrasound Abdomen Complete 0 Complete Blood Count 06/25/2021 [facility] enter Main Lab [address] [place] [address] [phone] White Blood Count 5.9 10 Normal 4.0-10.0 [...] % Normal 0-0 Laboratory test finding 06/25/2021 [facility] Main Lab [address] [place] [address] [phone] Erythrocyte Sedimentation Rate 2 mm/hr Normal 0 -20 Retic (Reticulocyte Count) 06/25/2021 [facility] Main Lab [address] [place] [address] [phone] Reticulocyte % 1.6 % High 0.5-1.5 Reticulocyte # 62.3 10 Normal 17-77 Retic Hemoglobin Equivalent 30.5 pg Normal 24-36 Laboratory test finding 06/25/2021 [facility] Main Lab [address] [place] [address] [phone] Retic (Reticulocyte Count) <pending> Total Iron Binding Capacit 06/25/2021 [facility] Main Lab [address] [place] [address] [phone] Iron (Fe) 73 g/dL Normal 50-170 Total Iron Binding Capacity 480 g/dL High 250-450 Percent Saturation 15.2 % Normal 13.2-45.0 FT4&TSH Panel 06/25/2021 [facility] nter Main Lab [address] [place] [address] [phone] Thyroid Stimulating Hormone 1.880 uIU/ML Normal 0. 358-3.740 Free T4 0.95 ng/dL Normal 0.76-1.46 Vitamin B12 & Folate 06/25/2021 [facility] enter Main Lab [address] [place] [address] [phone] Vitamin B12 Level 492 pg/mL Normal 1 Folate > 24.0 NG/ML Normal 2 Laboratory test finding 06/25/2021 [facility] Main Lab [address] [place] [address] [phone] Ferritin 11 NG/ML Normal 8-252 C Reactive Protein Quantitativ 0.70 mg/dL High 0.00-0.30 Jyoti Titer & Pattern 06/25/2021 [facility] nter Main Lab [address] [place] [address] [phone] Jyoti (Hep2) Positive Abnormal . 3 Jyoti [...] Jyoti Note (SEE NOTE) Normal . 5 FVL/[place]ard 06/25/2021 [employer] PDFReport SEE IMAGE FVC-Pred 3.58 L FVC-Pre 3.66 L FVC-%Pred-Pre 102 L FVC-LLN 2.88 L Fev1-Pred 2.85 L Fev1-Pre 3.07 L Fev1-%Pred-Pre 107 L Fev1-LLN 2.26 L Fev6-Pred 3.49 L Fev6-Pre 3.66 L Fev6-%Pred-Pre 104 L Fev6-LLN 2.81 L Mle5jsl-Cnzv 81 % Uan2jgp-Xwr 84 % Zsm7uwd-%Pred-Pre 104 % Kym9fly-ACP 71 % Gho7cuo-Exxs 98 % Idg2qtg-Npk 100 % Ybo7fzt-%Pred-Pre 102 % FEFMax-Pred 6.80 L/E/sec FEFMax-Pre 7.76 L/E/sec FEFMax-%Pred-Pre 114 L/E/sec FEFMax-LLN 5.08 L/E/sec Aot6300-Jsyd 2.84 L/E/sec Mkm8315-Djw 3.31 L/E/sec Ypx5097-%Pred-Pre 116 L/E/sec Lfs8409-JWT 1.60 L/E/sec ExpTime-Pre 4.33 sec Ygl0hzc4-Bgbu 83 % Lvp0yxh0-Aec 84 % Qjz7che3-%Pred-Pre 101 % Xwv6stu0-LWT 74 % 1 VITAMIN B12 NORMAL RANGE [...] more information about Hep-2 cell patterns use Farehelperpatterns.BioLeap, the official website for the International Consensus on Antinuclear Antibody (JYOTI) Patterns (ICAP). A positive JYOTI result may occur in healthy individuals (low titer) or be associated with a variety of diseases. See interpretation chart which is not all inclusive: . Pattern Antigen Detected Suggested Disease Association --------- Homogeneous DNA(ds,ss), SLE - High titers Nucleosomes, Histones Drug-induced SLE --------- Speckled Sm, RETAIL RESET MERCHANDISER, SCL-70, SLE,MCTD,PSS (diffuse form), SS-A/SS-B Sjogrens --------- Nucleolar SCL-70, PM-1/SCL High titers Scleroderma, PM/DM --------- Centromere Centromere PSS (limited form) w/Crest syndrome variable --------- Nuclear Dot Sp100,f20-jmdmsr Primary Biliary Cirrhosis --------- Nuclear GP210, Primary Biliary Cirrhosis Membrane oscar A,B,C --------- Performed at: RN - [facility] [address] [id number] Garden Equipment Mechanic: Kait Apple MD, Phone: [phone] Procedures Date Code Description Status 08/07/2021 10673 Office/Outpatient Established Mo d MDM 30-39 Min Completed 08/07/2021 18980 Office/Outpatient Established Lo w MDM 20-29 Min Completed 07/28/2021 60744 Office/Outpatient New Moderate M DM 45-59 Minutes Completed 07/28/2021 60174 Laryngoscopy Flexible Fiberoptic Diagnostic Completed 07/18/2021 26603 Diffusing Capacity Completed 07/18/2021 94434 Plethysmography Determination Clara ng Volumes & Per Airway Resist Completed 07/18/2021 32702 Bronchospasm Evaluation Complete d 06/25/2021 00447 Office/Outpatient New Moderate M DM 45-59 Minutes Completed 06/25/2021 33217 Spirometry Completed 06/04/2021 56356 Office/Outpatient New Moderate M DM 45-59 Minutes Completed Medical Devices Description No Information Available Encounters Type Date Location Provider Dx Diagnosis Office Visit 08/07/2021 9:40a [facility] Gray Healy MD K12.0 Recurrent oral aphthae Office Visit 07/28/2021 8:00a [facility] Gray Healy MD R59.0 Localized enlarged lymph nodes K12.0 Recurrent oral aphthae J31.0 Chronic rhinitis Office Visit 06/25/2021 10:00a [facility] Pulmonary/Thoracic NATALY Miller R06.02 Shortness of breath R05 Cough G47.33 Obstructive sleep apnea (florinda lt) (pediatric) Office Visit 06/04/2021 1:00p [facility]enterology [facility] ct[facility] Joni Vazquez M.D. K50.812 Crohn's disease of both smal l and lg int w intestinal obst R14.0 Abdominal distension (gaseou s) R11.10 Vomiting, unspecified R10.13 Epigastric pain Assessments Date Code Description Provider 08/07/2021 K12.0 Recurrent oral aphthae Gray brito [...] Vazquez M.D. 06/04/2021 R14.0 Abdominal distension (gaseous) Sharon Vazquez M.D. 06/04/2021 R11.10 Regurgitation Joni Chen ala, M.D. 06/04/2021 R10.13 Epigastric pain Joni Chen ala, M.D. Plan of Treatment Future Appointment(s):* 10/07/2021 3:30 pm - NATALY Ambrocio at [facility]Th[facility]acic * 09/08/2021 9:10 am - Gray Healy MD at [facility] * 08/27/2021 1:00 pm - Joni Vazquez M.D. at [facility] Gastroenterology [facility] * 08/15/2021 2:10 pm - Joni Vazquez M.D. at [facility] 08/07/2021 - NATALY Ambrocio* [...] excisional biopsy of lymph nodes Closed 07/28/[address] [place] [address] [phone] Williams Sorenson MD 50 year old female with cer vical lymphadenopathy in 2018, when on HUmira ( used to follow in [place]), now referred to here and patient had incomplete lymph node analysis by FNA ( pathology reported dilute sample). Patient has some improvement of lymphadenopathy but not completely resolved. Please evaluate for Excisional biopsy of lymph nodes. Thank you. Created [address] [place] [address] [phone] Maral Guillaume A.N.P. SOB, EDEN Closed 06/25/2021 [facility] Pulmonary [address] [place], [place] [address] [phone]
--- OUTSIDE RECORDS SUMMARY | 2021-09-12 12:14 | CCD ---
Author Author [facility] Organization [facility] Address Unknown Phone Unavailable Care Team Providers Care Candle Cutter Name Role Phone Arabella Herndon Unavailable PROBLEMS Type Condition ICD9-CM Code SGC44-EA Code Onset Dates Condition S tatus W/U Status Risk SNOMED Code Notes Problem Crohn''s disease of both small and large intestine without complication K50.80 Active confirmed 46243499 Problem Anemia due to folic acid deficiency, unspecified deficiency type D52.9 Active confirmed 90469944 Problem Raynaud''s disease without gangrene I73.00 Acti ve confirmed 741170751 Problem History of IBS Z87.19 Active confirmed 59778 358118856 Problem Degenerative disc disease, cervical M50.30 Acti ve confirmed 82161081 Problem Migraine without aura and with status migrainosu s, not intractable G43.001 Active confirmed 774241464 Problem Iron deficiency anemia, unspecified iron deficiency an emia type D50.9 Active confirmed 22704676 Problem PMS (premenstrual syndrome) N94.3 Active confirmed 55547404 Problem Menorrhagia with regular cycle N92.0 Active confir med 334966160 Problem Endometriosis N80.9 Active confirmed 120905 003 Problem Gastroesophageal reflux disease, esophagitis pre sence not specified K21.9 Active confirmed 384313033 Problem Pap smear of cervix shows high risk HPV present R8 7.810 Active confirmed 981634120 Problem Breakthrough bleeding on control pills N92.1 Active confirmed 24909660 Problem Left ovarian cyst N83.202 Active confirmed 1 8038842698048901 Problem At risk for breast cancer Z91.89 Active confirmed 699845369 Problem Amenorrhea N91.2 Active confirmed 77289548 Problem Mixed hyperlipidemia E78.2 Active confirmed 962625590 Problem Cerebral aneurysm I67.1 Active confirmed 12 7176375 Problem Insomnia, unspecified type G47.00 Active confirmed 524518308 Problem Perimenopausal N95.1 Active confirmed 32872 6045506862 Problem EDEN (obstructive sleep apnea) G47.33 Active confirm ed 66615732 Problem Allergic rhinitis, cause unspecified J30.9 Act allison confirmed 10350014 Problem Other chronic pain G89.29 Active confirmed 8 9812509 Problem Family history of breast cancer in mother Z80.3 Active confirmed 570280087 Problem Vitamin D deficiency E55.9 Active confirmed 54127615 Problem Anxiety F41.9 Active confirmed 09808354 Problem Other local lupus erythematosus L93.2 Active confi rmed 24267684 Problem Hypothyroidism, unspecified type E03.9 Active conf irmed 98939624 Problem Daytime somnolence R40.0 Active confirmed 1 89108725824 ALLERGIES Allergen (clinical drug ingredient) Drug/Non Drug Allergy do cumented on EMR Reaction Allergy Type Onset Date Status metoclopramide Reglan([facility] Code:[address]-74) feels lik e i want to jump out of my skin Drug Allergy Active adalimumab Humira([facility] Code:[address]-15) Edema, Generalize d Weakness/Pain Drug Allergy Active Amoxicillin Hives Drug Allergy Active metaxalone Skelaxin([facility] Code:[address]-63) diffuse edema Drug Allerg y Active ENCOUNTERS from 1972 to 2021-07-29 Encounter Location Date Provider Diagnosis [address] [facility] [phone] [place] [address] Jul, Arabella Yanick Cervical pain M54.2 IMMUNIZATIONS Vaccine Route Administration Date Status Depo-Provera [...] Notes Total Score: 1 Interpretation: Alcohol Education Hinduism: Question Answer Notes Hinduism 13 Yazdanism Sexual Hx: Question Answer Notes [...] Date Status Vitamin B2 400mg bid Active Diana Allergy 180 MG 1 tablet as needed Orally Once a day Active May Have iron injections asdir Ac tive lamoTRIgine 25 MG 2 tablets Orally once a day Active Sertraline HCl 50 MG 1 tablet Orally Once a day ( with 100mg dose for total of 150mg) for 30 day(s) Oct, Active Hyoscyamine 0.375 MG as directed Orally Active Stelara 45 MG/0.5ML as directed Subcutaneous onc e now and then once after 4 weeks, then every 3 months for 90 days Apr, Active Scopolamine 1 MG/3DAYS 1 patch to skin behind the e ar as needed Transdermal for 30 day(s) Active ALPRAZolam 0.25 MG 1 tablet Orally/Reference #: [id number] Twice a day as needed (MDD: 2) for 30 Days Jun, Active Zoloft 100 MG 1 tablet Orally Once a day for 30 Active HYDROcodone-Acetaminophen 7.5-325 MG 1 tablet as neede d Orally/Reference #:[id number] twice daily for pain (MDD: 2) for 14 day(s) Jun, Active FRANK 3-0.02 MG 1 tablet Orally Once a day for 84 days 2019 Active Methotrexate 2.5 MG as directed Orally 5 pills every Wednesday Active Levothyroxine Sodium 50 MCG 1 capsule in the morning o n an empty stomach Orally Once a day for 30 day(s) March, Active hydrOXYzine HCl 50 MG 1-2 tablets as needed Orally three times a day as needed for 30 day(s) March, Active Botox 100 UNIT Injection 32 injections for migraine Active Hydrocortisone Acetate 25 MG 1 suppository Rectal Once a day for 14 day(s) May, Active Mouthwashes - COMPOUNDING, equal parts Maa lox, Benedryl and Viscous Lidocaine Mouth/Throat 10ml every 3 hours, up to 6x per day for 7 day(s) 0 May, Active Vitamin D3 2000 UNIT 1 capsule Orally Once a day Active Imitrex STATdose Refill 6 MG/0.5ML 1 injection Subcutaneous as needed Active busPIRone HCl 15 MG 1 tablet Orally Twice a day for 30 Active traZODone HCl 50 MG 1-2 tablets at bedtime as needed Orally Once a day for 30 Active SUMAtriptan Succinate 100 MG 1 tablet at least 2 hours between doses as needed Oral as directed for 30 Days Act allison Linzess 72 MCG 1 capsule at least 30 minute s before the first meal of the day on an empty stomach Orally Once a day for 30 day(s) Active Protonix 40 MG 2 tablets Orally twice daily for 30 days Active Sudafed 30 MG 1 tablet as needed Orally every 6 hrs Active Ibuprofen 800 MG 1 tablet with food or milk a s needed Orally Three times a day for 30 Active Gummies/DHA & FA 0.4-32.5 MG Orally Active Flonase 50 MCG/DOSE 1 spray in [...] 1 1/2" needle Intramuscularly once a m [facility] for 90 day(s) May, Active PROCEDURES No Information RESULTS No Results REASON FOR VISIT lab results MEDICAL (GENERAL) HISTORY Type Description Date Medical [...] Notes Jul, Cervical pain (ICD-10 - M54.2) PLAN OF TREATMENT Medication Medication Name Sig Start Date Stop Date HYDROcodone-Acetaminophen 7.5-325 MG 1 tablet as neede d Orally/Reference #:[id number] twice daily for pain (MDD: 2) for 14 day(s) Jun, Next Appt Details Provider Name:Birdie Evangelista, 2021-08-06 02:40:00 PM, [address] [place] [address], , [place], [address], Provider Name:Dai Echavarria, 2021-09-05 09:00:00 AM, [address] [facility], , [place], [address], Insurance Providers Payer Name Payer Address Payer Phone Insured Name Patient Relati onship to Insured Coverage Start Date Coverage End Date JEIMY PINEDO [address] [facility] [address] MICHELLE KNIGHT self
--- OUTSIDE RECORDS SUMMARY | 2021-09-12 12:14 | CCD ---
Author Author [facility] Organization [facility] Address Unknown Phone Unavailable Care Team Providers Care Biofuels Plant Superintendent Name Role Phone Arabella Herndon Unavailable PROBLEMS Type Condition ICD9-CM Code KTH73-OV Code Onset Dates Condition S tatus W/U Status Risk SNOMED Code Notes Problem Crohn''s disease of both small and large intestine without complication K50.80 Active confirmed 13163860 Problem Anemia due to folic acid deficiency, unspecified deficiency type D52.9 Active confirmed 30508376 Problem Raynaud''s disease without gangrene I73.00 Acti ve confirmed 049701493 Problem History of IBS Z87.19 Active confirmed 61896 321880491 Problem Degenerative disc disease, cervical M50.30 Acti ve confirmed 23076340 Problem Migraine without aura and with status migrainosu s, not intractable G43.001 Active confirmed 810812178 Problem Iron deficiency anemia, unspecified iron deficiency an emia type D50.9 Active confirmed 58964805 Problem PMS (premenstrual syndrome) N94.3 Active confirmed 30754675 Problem Menorrhagia with regular cycle N92.0 Active confir med 024665194 Problem Endometriosis N80.9 Active confirmed 796219 003 Problem Gastroesophageal reflux disease, esophagitis pre sence not specified K21.9 Active confirmed 815423354 Problem Pap smear of cervix shows high risk HPV present R8 7.810 Active confirmed 382799523 Problem Breakthrough bleeding on control pills N92.1 Active confirmed 11957066 Problem Left ovarian cyst N83.202 Active confirmed 1 9436816601101673 Problem At risk for breast cancer Z91.89 Active confirmed 732696989 Problem Amenorrhea N91.2 Active confirmed 53922264 Problem Mixed hyperlipidemia E78.2 Active confirmed 331076221 Problem Cerebral aneurysm I67.1 Active confirmed 12 1447963 Problem Insomnia, unspecified type G47.00 Active confirmed 890037900 Problem Perimenopausal N95.1 Active confirmed 09179 1356311351 Problem EDEN (obstructive sleep apnea) G47.33 Active confirm ed 82024442 Problem Allergic rhinitis, cause unspecified J30.9 Act allison confirmed 84525266 Problem Other chronic pain G89.29 Active confirmed 8 3396107 Problem Family history of breast cancer in mother Z80.3 Active confirmed 832447168 Problem Vitamin D deficiency E55.9 Active confirmed 76705054 Problem Anxiety F41.9 Active confirmed 05818066 Problem Other local lupus erythematosus L93.2 Active confi rmed 72630913 Problem Hypothyroidism, unspecified type E03.9 Active conf irmed 42756879 Problem Daytime somnolence R40.0 Active confirmed 1 54210094426 ALLERGIES Allergen (clinical drug ingredient) Drug/Non Drug Allergy do cumented on EMR Reaction Allergy Type Onset Date Status metoclopramide Reglan([facility] Code:[address]-51) feels lik e i want to jump out of my skin Drug Allergy Active adalimumab Humira([facility] Code:[address]-14) Edema, Generalize d Weakness/Pain Drug Allergy Active Amoxicillin Hives Drug Allergy Active metaxalone Skelaxin([facility] Code:[address]-94) diffuse edema Drug Allerg y Active ENCOUNTERS from 1972 to 2021-07-24 Encounter Location Date Provider Diagnosis [address] [facility] [phone] [place] [address] 08 Jul, 2021 Arabella Herndon IMMUNIZATIONS Vaccine Route Administration Date Status Depo-Provera [...] Notes Total Score: 1 Interpretation: Alcohol Education Sabianism: Question Answer Notes Sabianism 13 Orthodox Sexual Hx: Question Answer Notes Had sex [...] ALPRAZolam 0.25 MG 1 tablet Orally/Reference #: [id number] Twice a day as needed (MDD: 2) for 30 Days Jun, Active Zoloft 100 MG 1 tablet Orally Once a day for 30 Active HYDROcodone-Acetaminophen 7.5-325 MG 1 tablet as neede d Orally/Reference #:[id number] twice daily for pain (MDD: 2) for [...] 1 1/2" needle Intramuscularly once a m [facility] for 90 day(s) May, Active PROCEDURES No Information RESULTS No Results REASON FOR VISIT no Referral sent as I requested on last appt MEDICAL (GENERAL) HISTORY Type Description Date Medical [...] MG 1 tablet as neede d Orally/Reference #:[id number] twice daily for pain (MDD: 2) for 14 day(s) Jun, Next Appt Details Provider Name:Birdie Evangelista, 2021-08-06 02:40:00 PM, [address] [place] [address], , [place], [address], Provider Name:Dai Echavarria, 2021-09-05 09:00:00 AM, [address] [facility], , [place], [address], Insurance Providers Payer Name Payer Address Payer Phone Insured Name Patient Relati onship to Insured Coverage Start Date Coverage End Date [facility] [address] [place] [address] [phone] MICHELLE KNIGHT self
--- OUTSIDE RECORDS SUMMARY | 2021-09-12 12:14 | CCD | Continuity of Care Document ---
Author Author Teressa HEALY MD Organization Unknown Address [address] [facility] [address] [place] [address] Phone [phone] Care Team Providers Care Projector Operator Name Role Phone YanickArabella P.A.-C AUTM [phone] AUTM Unavailable AUTM Unavailable Dai Echavarria M.D. AUTM [phone] Joni Vazquez M.D. AUTM [phone] Problems Active Problems Provider Date Obstructive sleep apnea syndrome NATALY Ambrocio Onset: 06/25/2021 Cough NATALY Ambrocio Onset: 06/25/2021 Dyspnea Maral Guillaume ANP Onset: 06/25/2021 Social History Type Date Description Comments Sex Unknown ETOH Use Rarely Tobacco Use Start: Unknown Non Smoker Smoking Status Reviewed: 06/25/21 Non Smoker Allergies, Adverse Reactions, Alerts Active Allergies Criticality Reaction | Severity Comments Date Amoxicillin Unable to assess criticality 06/04/2021 Reglan Unable to assess criticality Anxiety 06/04/2021 Skelaxin Unable to assess criticality edema 06/04/2021 Medications Active Medications SIG Qnty Indications Ordering Provide r Date CPAP Device 6cm lcw NATALY Ambrocio 07/22/2021 Colace 100mg Capsules 1 tab orally twice a day before meal. (increase to 3 per day if persistent contipation and hold/decrease if having diarrhea) 90caps K50.812 Joni morse M.D. 07/09/2021 Lamotrigine 50mg Tablets Dispers 1 tab by mouth every day Unknown Pantoprazole Sodium 40mg Tablets D R 1 by mouth every day 60tabs Unknown B12 Injection once a month Unknown 0 Vit B2 1 tab by mouth every day Unknown Vit D3 1 tab by mouth every day Unknown Buspirone HCL 15mg Tablets 1 tab by mouth every day Unknown Hydroxyzine HCL 10mg Tablets 1 tab by mouth three times a day as needed Unknown Sudafed 30mg Tablets 1 tab by mouth every day Unknown Sertraline HCL 100mg Tablets 1 by mouth every day Unknown Trazodone HCL 50mg Tablets 1 tab by mouth every day Unknown Alprazolam 0.25mg Tablets 1 tab by mouth as needed Unknown Immunizations Description No Information Available Vital Signs Date Vital Result Comment 07/28/2021 8:20am Height 64 inches 5'4" Weight 172.00 lb BMI (Body Mass Index) 29.5 kg/m2 [place] Body Weight 120 lb Weight 78.019 kg BSA (Body Surface Area) 1.83 m2 06/25/2021 9:51am BP Systolic 124 mmHg BP Diastolic 72 mmHg Heart Rate 114 /min O2 % BldC Oximetry 97 % Height 64 inches 5'4" Weight 171.25 lb BMI (Body Mass Index) 29.4 kg/m2 Ch[place] Body Weight 120 lb Weight 77.679 kg BSA (Body Surface Area) 1.83 m2 Results Test Acquired Date Facility Test Result H/L Range Note Xray 06/27/2021 [facility] nter Radiology Dept [address] [place], [place] [id number] [phone] Ultrasound Abdomen Complete 0 Complete Blood Count 06/25/2021 [facility] enter Main Lab [address] [place] [address] [phone] White Blood Count 5.9 10 Normal 4.0-10.0 [...] % Normal 0-0 Laboratory test finding 06/25/2021 [facility] Main Lab [address] [place] [address] [phone] Erythrocyte Sedimentation Rate 2 mm/hr Normal 0 -20 Retic (Reticulocyte Count) 06/25/2021 [facility] Main Lab [address] [place] [address] [phone] Reticulocyte % 1.6 % High 0.5-1.5 Reticulocyte # 62.3 10 Normal 17-77 Retic Hemoglobin Equivalent 30.5 pg Normal 24-36 Laboratory test finding 06/25/2021 [facility] Main Lab [address] [place] [address] [phone] Retic (Reticulocyte Count) <pending> Total Iron Binding Capacit 06/25/2021 [facility] Main Lab [address] [place] [address] [phone] Iron (Fe) 73 g/dL Normal 50-170 Total Iron Binding Capacity 480 g/dL High 250-450 Percent Saturation 15.2 % Normal 13.2-45.0 FT4&TSH Panel 06/25/2021 [facility] nter Main Lab [address] [place] [address] [phone] Thyroid Stimulating Hormone 1.880 uIU/ML Normal 0. 358-3.740 Free T4 0.95 ng/dL Normal 0.76-1.46 Vitamin B12 & Folate 06/25/2021 [facility] enter Main Lab [address] [place] [address] [phone] Vitamin B12 Level 492 pg/mL Normal 1 Folate > 24.0 NG/ML Normal 2 Laboratory test finding 06/25/2021 [facility] Main Lab [address] [place] [address] [phone] Ferritin 11 NG/ML Normal 8-252 C Reactive Protein Quantitativ 0.70 mg/dL High 0.00-0.30 Jyoti Titer & Pattern 06/25/2021 [facility] Main Lab [address] [place] [address] [phone] Jyoti (Hep2) Positive Abnormal . 3 Jyoti [...] L Fev6-%Pred-Pre 104 L Fev6-LLN 2.81 L Cvu0uhb-Lcyy 81 % Lrn3urm-Wta 84 % Muc1rbw-%Pred-Pre 104 % Abe6uwh-QET 71 % Tqk3jsz-Ujim 98 % Vji1rxz-Beq 100 % Nkg1srv-%Pred-Pre 102 % FEFMax-Pred 6.80 L/E/sec FEFMax-Pre 7.76 L/E/sec FEFMax-%Pred-Pre 114 L/E/sec FEFMax-LLN 5.08 L/E/sec Dgq6693-Pggx 2.84 L/E/sec Cdu9941-Opi 3.31 L/E/sec Ueb6189-%Pred-Pre 116 L/E/sec Emw2460-QTX 1.60 L/E/sec ExpTime-Pre 4.33 sec Mvb7sgb0-Iwwz 83 % Tqb6arz3-Qpm 84 % Zjx1hez9-%Pred-Pre 101 % Yks5hfu1-TKR 74 % 1 VITAMIN B12 NORMAL RANGE [...] Nucleosomes, Histones Drug-induced SLE --------- Speckled Sm, CABIN SERVICE AGENT, SCL-70, SLE,MCTD,PSS (diffuse form), SS-A/SS-B Sjogrens --------- Nucleolar SCL-70, PM-1/SCL High titers Scleroderma, PM/DM --------- Centromere Centromere PSS (limited form) w/Crest syndrome variable --------- Nuclear Dot Sp100,l53-qwhrpu Primary Biliary Cirrhosis --------- Nuclear GP210, Primary Biliary Cirrhosis Membrane oscar A,B,C --------- Performed at: [facility] [address] [id number] Fixed Wing Aircraft Crew Chief: Kait Apple MD, Phone: [phone] Procedures Date Code Description Status 07/18/2021 71492 Diffusing Capacity Completed 07/18/2021 03404 Plethysmography Determination Clara ng Volumes & Per Airway Resist Completed 07/18/2021 37372 Bronchospasm Evaluation Complete d 06/25/2021 94444 Office/Outpatient New Moderate M DM 45-59 Minutes Completed 06/25/2021 27234 Spirometry Completed 06/04/2021 54638 Office/Outpatient New Moderate M DM 45-59 Minutes Completed Medical Devices Description No Information Available Encounters Type Date Location Provider Dx Diagnosis Office Visit 06/25/2021 10:00a [facility] Pulmonary/Thoracic Maral To wne, ANP R06.02 Shortness of breath R05 Cough G47.33 Obstructive sleep apnea (florinda lt) (pediatric) Office Visit 06/04/2021 1:00p [facility] Gastroenterology Maribel Vazquez M.D. K50.812 Crohn's disease of both smal l and lg int w intestinal obst R14.0 Abdominal distension (gaseou s) R11.10 Vomiting, unspecified R10.13 Epigastric pain Assessments Date Code Description Provider 07/18/2021 R06.02 Shortness of breath Pulmonary La [...] ala, M.D. Plan of Treatment Future Appointment(s):* 07/29/2021 8:00 am - [facility] Pulmonary Lab at [facility] Pulmonary/Thoracic * 10/02/2021 3:40 pm - Joni Vazquez M.D. at [facility] Gastroenterology Practice * 09/19/2021 2:00 am - Joni Vazquez M.D. at [facility] Gastroenterology Practice * 09/09/2021 1:30 pm - NATALY Ambrocio at [facility] Pulmonary/Thoracic Functional Status Description No Information Available Mental Status Description No Information Available Referrals Refer to Reason for Referral Status Appt Date Gray Healy M.D. Cervical lymphadenopathy in 2018, when on Humira incomplete lymph node anaysis by FNA, Evaluate for excisional biopsy of lymph nodes Scheduled 07/28/[address] [place] [address] [phone] Williams Sorenson MD 50 year old female with cer vical lymphadenopathy in 2018, when on HUmira ( used to follow in [place]), now referred to here and patient had incomplete lymph node analysis by FNA ( pathology reported dilute sample). Patient has some improvement of lymphadenopathy but not completely resolved. Please evaluate for Excisional biopsy of lymph nodes. Thank you. Created [address] [facility] [address] [place] [address] [phone] Maral Guillaume A.N.P. SOB, EDEN Closed 06/25/2021 [facility] Pulmonary [address] [place], [place] [address] [phone]
--- OUTSIDE RECORDS SUMMARY | 2021-09-12 12:14 | CCD | Continuity of Care Document ---
Author Author Teressa ANGUIANO ANP Organization Unknown Address [address] [place] [address] Phone [phone] Care Team Providers Care Assistant Baseball Coach Name Role Phone Arabella Herndon P.A.-C AUTM [phone] AUTM Unavailable AUTM Unavailable Dai Echavarria M.D. AUTM [phone] Joni Vazquez M.D. AUTM [phone] Problems Active Problems Provider Date Obstructive [...] lb BMI (Body Mass Index) 29.7 kg/m2 [place] Body Weight 120 lb Weight 78.473 kg BSA (Body Surface Area) 1.84 m2 08/07/2021 9:20am Height 64 inches 5'4" Weight 173.00 lb BMI (Body Mass Index) 29.7 kg/m2 [place] Body Weight 120 lb Weight 78.473 kg BSA (Body Surface Area) 1.84 m2 Results Test Acquired Date Facility Test Result H/L Range Note Xray 06/27/2021 [facility] nter Radiology Dept [address] [place], [place] [address] [phone] Ultrasound Abdomen Complete 0 Complete Blood Count 06/25/2021 [facility] enter Main Lab [address] [place] [address] [phone] White Blood Count 5.9 10 Normal 4.0-10.0 [...] finding 06/25/2021 [facility] Main Lab [address] [place] [address] [phone] Erythrocyte Sedimentation Rate 2 mm/hr Normal 0 -20 Retic (Reticulocyte Count) 06/25/2021 [facility] Main Lab [address] [place] [address] [phone] Reticulocyte % 1.6 % High 0.5-1.5 Reticulocyte # 62.3 10 Normal 17-77 Retic Hemoglobin Equivalent 30.5 pg Normal 24-36 Laboratory test finding 06/25/2021 [facility] Main Lab [address] [place] [address] [phone] Retic (Reticulocyte Count) <pending> Total Iron Binding Capacit 06/25/2021 [facility] Main Lab [address] [place] [address] [phone] Iron (Fe) 73 g/dL Normal 50-170 Total Iron Binding Capacity 480 g/dL High 250-450 Percent Saturation 15.2 % Normal 13.2-45.0 FT4&TSH Panel 06/25/2021 [facility] nter Main Lab [address] [place] [address] [phone] Thyroid Stimulating Hormone 1.880 uIU/ML Normal 0. 358-3.740 Free T4 0.95 ng/dL Normal 0.76-1.46 Vitamin B12 & Folate 06/25/2021 [facility] enter Main Lab [address] [place] [address] [phone] Vitamin B12 Level 492 pg/mL Normal 1 Folate > 24.0 NG/ML Normal 2 Laboratory test finding 06/25/2021 [facility] Main Lab [address] [place] [address] [phone] Ferritin 11 NG/ML Normal 8-252 C Reactive Protein Quantitativ 0.70 mg/dL High 0.00-0.30 Jyoti Titer & Pattern 06/25/2021 [facility] nter Main Lab [address] [place] [address] [phone] Jyoti (Hep2) Positive Abnormal . 3 Jyoti [...] L Fev6-%Pred-Pre 104 L Fev6-LLN 2.81 L Egw1nxa-Qbeo 81 % Bhi1bia-Edj 84 % Jfw5ekn-%Pred-Pre 104 % Ljl8wqd-ZBX 71 % Pih1tae-Fcoo 98 % Kgb2iii-Esl 100 % Sdj9rxr-%Pred-Pre 102 % FEFMax-Pred 6.80 L/E/sec FEFMax-Pre 7.76 L/E/sec FEFMax-%Pred-Pre 114 L/E/sec FEFMax-LLN 5.08 L/E/sec Dhq8889-Qrla 2.84 L/E/sec Kkz2408-Odt 3.31 L/E/sec Wtb9048-%Pred-Pre 116 L/E/sec Lqt2089-CNF 1.60 L/E/sec ExpTime-Pre 4.33 sec Vbd8aeg0-Pflg 83 % Ogj9wso6-Mgv 84 % Mbv6qxi7-%Pred-Pre 101 % Tpp5swm6-TND 74 % 1 VITAMIN B12 NORMAL RANGE [...] more information about Hep-2 cell patterns use Kumbuyapatterns.org, the official website for the International Consensus on Antinuclear Antibody (JYOTI) Patterns (ICAP). A positive JYOTI result may occur in healthy individuals (low titer) or be associated with a variety of diseases. See interpretation chart which is not all inclusive: . Pattern Antigen Detected Suggested Disease Association --------- Homogeneous DNA(ds,ss), SLE - High titers Nucleosomes, Histones Drug-induced SLE --------- Speckled Sm, OIL ANALYST, SCL-70, SLE,MCTD,PSS (diffuse form), SS-A/SS-B Sjogrens --------- Nucleolar SCL-70, PM-1/SCL High titers Scleroderma, PM/DM --------- Centromere Centromere PSS (limited form) w/Crest syndrome variable --------- Nuclear Dot Sp100,f85-jsjkjf Primary Biliary Cirrhosis --------- Nuclear GP210, Primary Biliary Cirrhosis Membrane oscar A,B,C --------- Performed at: [facility] [address] [id number] Wood Getter: Kait Apple MD, Phone: [phone] Procedures Date Code Description Status 08/07/2021 98743 Office/Outpatient Established Mo d MDM 30-39 Min Completed 08/07/2021 54237 Office/Outpatient Established Lo w MDM 20-29 Min Completed 07/28/2021 03741 Office/Outpatient New Moderate M DM 45-59 Minutes Completed 07/28/2021 78969 Laryngoscopy Flexible Fiberoptic Diagnostic Completed 07/18/2021 83408 Diffusing Capacity Completed 07/18/2021 00521 Plethysmography Determination Clara ng Volumes & Per Airway Resist Completed 07/18/2021 68136 Bronchospasm Evaluation Complete d 06/25/2021 69858 Office/Outpatient New Moderate M DM 45-59 Minutes Completed 06/25/2021 08288 Spirometry Completed 06/04/2021 35173 Office/Outpatient New Moderate M DM 45-59 Minutes Completed Medical Devices Description No Information Available Encounters Type Date Location Provider Dx Diagnosis Office Visit 08/07/2021 10:30a [facility] Maral To wne, ANP J45.40 Moderate persistent asthma, uncomplicate d G47.33 Obstructive sleep apnea (florinda lt) (pediatric) Office Visit 08/07/2021 9:40a [facility] Gray Healy MD K12.0 Recurrent oral aphthae Office Visit 07/28/2021 8:00a [facility] Gray Healy MD R59.0 Localized enlarged lymph nodes K12.0 Recurrent oral aphthae J31.0 Chronic rhinitis Office Visit 06/25/2021 10:00a [facility]Thoracic NATALY Miller R06.02 Shortness of breath R05 Cough G47.33 Obstructive sleep apnea (florinda lt) (pediatric) Office Visit 06/04/2021 1:00p [facility] Joni Vazquez M.D. K50.812 [...] La b 06/25/2021 R06.02 Shortness of breath Maral Anguiano, NATALY 06/25/2021 R05 Cough NATALY Ambrocio 06/25/2021 G47.33 [...] 10/07/2021 3:30 pm - NATALY Ambrocio at [facility]Thoracic * 09/08/2021 9:10 am - Gray Healy MD at [facility] 08/07/2021 - NATALY Ambrocio* J45.40 Moderate persistent asthma, uncomplicated * G47.33 Obstructive sleep apnea (adult) (pediatric) * * New Labs:* FVL/[place], Ordered: 08/07/21 * Comments:* Patient appears to [...] excisional biopsy of lymph nodes Closed 07/28/[address] [place] [address] [phone] Williams Sorenson MD 50 year old female with cer vical lymphadenopathy in 2018, when on HUmira ( used to follow in [place]), now referred to here and patient had incomplete lymph node analysis by FNA ( pathology reported dilute sample). Patient has some improvement of lymphadenopathy but not completely resolved. Please evaluate for Excisional biopsy of lymph nodes. Thank you. Created [address] [place] [address] [phone] Maral Anguiano A.N.P. SOB, EDEN Closed 06/25/2021 [facility] Pulmonary [address] [place], [place] [address] [phone]
--- OUTSIDE RECORDS SUMMARY | 2021-09-12 12:14 | CCD | Continuity of Care Document ---
Author Author Teressa BAKER PA Organization Unknown Address [address] [place] [address] [place] [address] Phone [phone] Care Team Providers Care Keg Inspector Name Role Phone [facility] CTR AUTM [facility] Publi AUTM [phone] Problems Active Problems Provider Date Acute sinusitis Onset: Social History Type Date Description Comments Sex Unknown ETOH Use Rarely consumes alcohol Tobacco Use Start: Unknown Patient has never smoked Smoking Status Reviewed: 06/10/21 Patient has never smoked Allergies, Adverse Reactions, Alerts Active Allergies Criticality Reaction | Severity Comments Date Reglan Unable to assess criticality nervousness | Moderate 03/25/2016 Penicillin Unable to assess criticality Contact dermatitis lip sw elling 05/05/2017 Skelaxin Unable to assess criticality fluid retent ion 09/07/2018 Tizanidine Unable to assess criticality nightmares & hallucinations 06/27/2020 Inactive Allergies NKDA Unable to assess criticality 06/24/2008 Medications Active Medications SIG Qnty Indications Ordering Provide r Date Nystatin 656360Mwtc/ML Suspension swish 5 milliliters hold in mouth x 30 seconds and then swallow twice a day x 7-14 days 140ml Miles Brown JR., M.D. 07/22/2021 Magic Mouth Wash benadryl:maalox: viscous lid ocaine (1:1:1) gargle 15ml twice a day x 7 -10 days QS Miles Brown JR., M.D. Cefdinir 300mg Capsules 1 by mouth twice a day x 10 days 20caps Miles Brown JR., M.D. 05/[address] 1 tab by mouth every morning Unknown Imitrex 100mg Tablets take 1 tab at onset of headache, may repeat x1 after 2 hours (maximum 2 tabs per day) Unknown Botox 100Unit Solution Rec prn/migraines Unknown Hydroxyzine HCL as needed Unknown 0 Vitamin D3 1.25mg (50742 Ut) Capsules Unknown Vitamin B-2 25mg Tablets Unknown Trazodone HCL at night to sleep Unknown Ibuprofen 11:00 am today Unknown Immunizations CPT Code Status Date Vaccine Lot # [id number] Given 08/15/2012 Tetanus (Td) Vaccine 7Yrs> C [id number] Vital Signs Date Vital Result Comment 07/22/2021 4:28pm BP Systolic 117 mmHg BP Diastolic 83 mmHg Heart Rate 80 /min Respiratory Rate 14 /min O2 % BldC Oximetry 97 % Body Temperature 96.0 F Weight 170.00 lb Height 63 inches 5'3" BMI (Body Mass Index) 30.1 kg/m2 Pain Level 5 06/10/2021 12:32pm BP Systolic 111 mmHg BP Diastolic 69 mmHg Heart Rate 94 /min Respiratory Rate 16 /min O2 % BldC Oximetry 99 % Body Temperature 98.6 F Weight 160.00 lb Height 63 inches 5'3" BMI (Body Mass Index) 28.3 kg/m2 Pain Level 10 Results Test Acquired Date Facility Test Result H/L Range Note Laboratory test finding 06/10/2021 [place] [address] [phone] Urine Culture FULL REPORT IN L <SEE NOTE> Normal 1 1 FULL REPORT IN LAB NOTES (eC W and Medent). NO GROWTH Procedures Date Code Description Status 07/22/2021 08829 Office/Outpatient Established Lo w MDM 20-29 Min Completed 06/10/2021 10889 Office/Outpatient Established Mo d MDM 30-39 Min Completed Medical Devices Description No Information Available Encounters Type Date Location Provider Dx Diagnosis Office Visit 07/22/2021 2:10p Main Office ALISTAIR Roblero H65 .01 Acute serous otitis media, right ear B37.0 Candidal stomatitis Z20.828 Contact w and exposure to ot h viral communicable diseases Office Visit 06/10/2021 12:45p Main Office Mirian Garcia NP M54. 9 Dorsalgia, unspecified M54.5 Low back pain Assessments Date Code Description Provider 07/22/2021 H65.01 Acute serous otitis media, right ear ALISTAIR Roblero 07/22/2021 B37.0 Candidal stomatitis ALISTAIR Walden 07/22/2021 Z20.828 Contact with and (gordon spected) exposure to other viral communicable diseases ALISTAIR Roblero 06/10/2021 M54.9 Dorsalgia, unspecified Mirian louie NP 06/10/2021 M54.5 Low back pain Mirian whitfield NP Plan of Treatment No Information Available Functional Status Description No Information Available Mental Status Description No Information Available Referrals Description No Information Available
--- OUTSIDE RECORDS SUMMARY | 2021-09-12 12:14 | CCD | Continuity of Care Document ---
Author Author Teressa HEALY MD Organization Unknown Address [address] [facility] [address] [place] [address] Phone [phone] Care Team Providers Care Referral Rn Name Role Phone YanickArabella P.A.-C AUTM [phone] AUTM Unavailable AUTM Unavailable Dai Echavarria M.D. AUTM [phone] Joni Vazquez M.D. AUTM [phone] Problems Active Problems Provider Date Obstructive [...] SIG Qnty Indications Ordering Provide r Date Gavilyte-N With Flavor Pack 420gm Solution Rec drink the liquid as per the pre-procedur e instructions. ( fill this script only if clenpiq is not covered by insurance). 4000ml Joni Vazquez M.D. 08/06/[address] take 4 tablets together as per bowel preparation instructions. 4tabs Joni Vazquez M.D. 08/06/2021 Clenpiq 10-3.5-12mg-GM -GM/160ML S olution follow pre-procedure instructions. start day before procedure. (if not covered by insurance please fill gavilyte script). 320ml Kenneth Vazquez M.D. 08/06/[address] [...] 1 Tablet By Mouth Every Day Nish Evangelista, A.R.N.PPark Folic Acid 1mg Tablets Lenore Paul [...] Vital Signs Date Vital Result Comment 08/07/2021 9:20am Height 64 inches 5'4" Weight 173.00 lb BMI (Body Mass Index) 29.7 kg/m2 [place] Body Weight 120 lb Weight 78.473 kg BSA (Body Surface Area) 1.84 m2 07/28/2021 8:20am Height 64 inches 5'4" Weight 172.00 lb BMI (Body Mass Index) 29.5 kg/m2 [place] Body Weight 120 lb Weight 78.019 kg BSA (Body Surface Area) 1.83 m2 Results Test Acquired Date Facility Test Result H/L Range Note Xray 06/27/2021 [facility] nter Radiology Dept [address] [place], [place] [id number] [phone] Ultrasound Abdomen Complete 0 Complete Blood Count 06/25/2021 [facility] enter Main Lab [address] [place], [place] [id number] [phone] White Blood Count 5.9 10 Normal 4.0-10.0 [...] % Normal 0-0 Laboratory test finding 06/25/2021 [facility] Main Lab [address] [place] [address] [phone] Erythrocyte Sedimentation Rate 2 mm/hr Normal 0 -20 Retic (Reticulocyte Count) 06/25/2021 [facility] Main Lab [address] [place] [address] [phone] Reticulocyte % 1.6 % High 0.5-1.5 Reticulocyte # 62.3 10 Normal 17-77 Retic Hemoglobin Equivalent 30.5 pg Normal 24-36 Laboratory test finding 06/25/2021 [facility] Main Lab [address] [place] [address] [phone] Retic (Reticulocyte Count) <pending> Total Iron Binding Capacit 06/25/2021 [facility] Main Lab [address] [place] [address] [phone] Iron (Fe) 73 g/dL Normal 50-170 Total Iron Binding Capacity 480 g/dL High 250-450 Percent Saturation 15.2 % Normal 13.2-45.0 FT4&TSH Panel 06/25/2021 [facility] Main Lab [address] [place] [address] [phone] Thyroid Stimulating Hormone 1.880 uIU/ML Normal 0. 358-3.740 Free T4 0.95 ng/dL Normal 0.76-1.46 Vitamin B12 & Folate 06/25/2021 [facility] Main Lab [address] [place] [address] [phone] Vitamin B12 Level 492 pg/mL Normal 1 Folate > 24.0 NG/ML Normal 2 Laboratory test finding 06/25/2021 [facility] Main Lab [address] [place] [address] [phone] Ferritin 11 NG/ML Normal 8-252 C Reactive Protein Quantitativ 0.70 mg/dL High 0.00-0.30 Jyoti Titer & Pattern 06/25/2021 [facility] Main Lab [address] [place] [address] [phone] Jyoti (Hep2) Positive Abnormal . 3 Jyoti [...] L Fev6-%Pred-Pre 104 L Fev6-LLN 2.81 L Wwe9qnr-Shhy 81 % Mrf0ccm-Ovz 84 % Vhj6dkc-%Pred-Pre 104 % Iet7rvo-WJI 71 % Ajd1uqq-Wssg 98 % Clj2qtx-Mqg 100 % Rji1ser-%Pred-Pre 102 % FEFMax-Pred 6.80 L/E/sec FEFMax-Pre 7.76 L/E/sec FEFMax-%Pred-Pre 114 L/E/sec FEFMax-LLN 5.08 L/E/sec Bde0954-Fhdy 2.84 L/E/sec Vyf1327-Fih 3.31 L/E/sec Zaj8634-%Pred-Pre 116 L/E/sec Uln1349-[facility] 1.60 L/E/sec ExpTime-Pre 4.33 sec Lle2und7-Swyc 83 % Fnh5fnc0-Ksr 84 % Omj9oce9-%Pred-Pre 101 % Mco9qlu2-EFH 74 % 1 VITAMIN B12 NORMAL RANGE [...] Nucleosomes, Histones Drug-induced SLE --------- Speckled Sm, HEALTH AND 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, SCL-70, SLE,MCTD,PSS (diffuse form), SS-A/SS-B Sjogrens --------- Nucleolar SCL-70, PM-1/SCL High titers Scleroderma, PM/DM --------- Centromere Centromere PSS (limited form) w/Crest syndrome variable --------- Nuclear Dot Sp100,g41-cqepnk Primary Biliary Cirrhosis --------- Nuclear GP210, Primary Biliary Cirrhosis Membrane oscar A,B,C --------- Performed at: RN - [facility] [address] [id number] [employer]op Rolls Operator: Kait Apple MD, Phone: [phone] Procedures Date Code Description Status 07/28/2021 22045 Office/Outpatient New Moderate M DM 45-59 Minutes Completed 07/28/2021 72723 Laryngoscopy Flexible Fiberoptic Diagnostic Completed 07/18/2021 04310 Diffusing Capacity Completed 07/18/2021 07522 Plethysmography Determination Clara ng Volumes & Per Airway Resist Completed 07/18/2021 59086 Bronchospasm Evaluation Complete d 06/25/2021 43013 Office/Outpatient New Moderate M DM 45-59 Minutes Completed 06/25/2021 34516 Spirometry Completed 06/04/2021 20947 Office/Outpatient New Moderate M DM 45-59 Minutes Completed Medical Devices Description No Information Available Encounters Type Date Location Provider Dx Diagnosis Office Visit 07/28/2021 8:00a [facility] Gray Healy MD R59.0 Localized enlarged lymph nodes K12.0 Recurrent oral aphthae J31.0 Chronic rhinitis Office Visit 06/25/2021 10:00a [facility]/Thoracic Maral To wne, ANP R06.02 Shortness of breath R05 Cough G47.33 Obstructive sleep apnea (florinda lt) (pediatric) Office Visit 06/04/2021 1:00p [facility] Maribel Vazquez M.D. K50.812 [...] of breath NATALY Ambrocio 06/25/2021 R05 Cough Maral Guillaume, NATALY 06/25/2021 G47.33 Obstructive sleep apnea (adult) (pediatric) NATALY Ambrocio 06/13/2021 R10.13 Epigastric pain Joni Chen ala, M.D. 06/04/2021 K50.812 Crohn's disease of b oth small and large intestine with intestinal obstruction Joni Vazquez M.D. 06/04/2021 R14.0 Abdominal distension (gaseous) C yuliya Vazquez M.D. 06/04/2021 R11.10 Regurgitation Joni Chen ala, M.D. 06/04/2021 R10.13 Epigastric pain Joni Chen ala, M.D. Plan of Treatment Future Appointment(s):* 09/08/2021 9:10 am - Gray Healy MD at [facility] * 08/27/2021 1:00 pm - Joni Vazquez M.D. at [facility] * 08/15/2021 2:10 pm - Joni Vazquez M.D. at [facility] Functional Status Description No Information Available Mental Status Description No Information Available Referrals Refer to Dr Reason for Referral Status Appt Date Gray Healy M.D. Cervical lymphadenopathy in 2018, when on Humira incomplete lymph node anaysis by FNA, Evaluate for excisional biopsy of lymph nodes Closed 07/28/[address] [place] [address] [phone] Williams Sorenson MD 50 year old female with cer vical lymphadenopathy in 2018, when on HUmira ( used to follow in [place]), now referred to here and patient had incomplete lymph node analysis by FNA ( pathology reported dilute sample). Patient has some improvement of lymphadenopathy but not completely resolved. Please evaluate for Excisional biopsy of lymph nodes. Thank you. Created [address] [facility] [address] [place] [address] [phone] Maral Guillaume A.N.P. SOB, EDEN Closed 06/25/2021 [facility] [address] [place], [place] [address] [phone]
--- OUTSIDE RECORDS SUMMARY | 2021-09-12 12:18 | CCD ---
Author Author [facility] Organization [facility] Address Unknown Phone Unavailable Care Team Providers Care Software Development Specialist Name Role Phone Nancy Guillaume HYPERION DEVELOPER Unavailable Unavailable Nancy Guillaume HYPERION DEVELOPER Unavailable Unavailable Nancy Guillaume HYPERION DEVELOPER Unavailable Unavailable AundreaNancy sánchez HYPERION DEVELOPER Unavailable Unavailable Aundrea, L Maral HYPERION DEVELOPER Unavailable Unavailable Aundrea, L Maral HYPERION DEVELOPER Unavailable Unavailable AundreaNancy sánchez HYPERION DEVELOPER Unavailable Unavailable Nancy Guillaume HYPERION DEVELOPER Unavailable Unavailable Aundrea, L Maral HYPERION DEVELOPER Unavailable Unavailable Aundrea, L Maral HYPERION DEVELOPER Unavailable Unavailable Aundrea, L Maral HYPERION DEVELOPER Unavailable Unavailable Aundrea, L Maral HYPERION DEVELOPER Unavailable Unavailable Aundrea, L Maral HYPERION DEVELOPER Unavailable Unavailable Aundrea, L Maral HYPERION DEVELOPER Unavailable Unavailable Aundrea, L Maral HYPERION DEVELOPER Unavailable Unavailable Aundrea, L Maral HYPERION DEVELOPER Unavailable Unavailable Aundrea, L Maral HYPERION DEVELOPER Unavailable Unavailable Aundrea, L Maral HYPERION DEVELOPER Unavailable Unavailable Aundrea, L Maral HYPERION DEVELOPER Unavailable Unavailable Aundrea, L Maral HYPERION DEVELOPER Unavailable Unavailable Aundrea, L Maral HYPERION DEVELOPER Unavailable Unavailable Aundrea, L Maral HYPERION DEVELOPER Unavailable Unavailable Aundrea, L Maral HYPERION DEVELOPER Unavailable Unavailable Aundrea, L Maral HYPERION DEVELOPER Unavailable Unavailable Aundrea, L Maral HYPERION DEVELOPER Unavailable Unavailable NO, PCP Unavailable Unavailable Fish, [facility], PA-C Unavailable Unavailabl e Fish, [facility], PA-C Unavailable Unavailabl e Fish, [facility], PA-C Unavailable Unavailabl e Fish, [facility], PA-C Unavailable Unavailabl e Fish, [facility], PA-C Unavailable Unavailabl e Fish, [facility], PA-C Unavailable Unavailabl e Fish, [facility], PA-C Unavailable Unavailabl e Fish, [facility], PA-C Unavailable Unavailabl e Fish, [facility], PA-C Unavailable Unavailabl e Fish, [facility], PA-C Unavailable Unavailabl e Fish, [facility], PA-C Unavailable Unavailabl e Fish, [facility], PA-C Unavailable Unavailabl e Fish, [facility], PA-C Unavailable Unavailabl e Fish, [facility], PA-C Unavailable Unavailabl e Fish, [facility], PA-C Unavailable Unavailabl e Fish, [facility], PA-C Unavailable Unavailabl e Fish, [facility], PA-C Unavailable Unavailabl e Fish, [facility], PA-C Unavailable Unavailabl e Fish, [facility], PA-C Unavailable Unavailabl e Fish, [facility], PA-C Unavailable Unavailabl e Fish, [facility], PA-C Unavailable Unavailabl e Fish, Bekah [facility], PA-C Unavailable Unavailabl e Fish, Bekah [facility], PA-C Unavailable Unavailabl e Fish, Bekah [facility], PA-C Unavailable Unavailabl e Fish, Bekah [facility], PA-C Unavailable Unavailabl e Fish, Bekah [facility], PA-C Unavailable Unavailabl e Fish, Bekah [facility], PA-C Unavailable Unavailabl e Fish, Bekah [facility], PA-C Unavailable Unavailabl e Fish, Bekah [facility], PA-C Unavailable Unavailabl e Fish, Bekah [facility], PA-C Unavailable Unavailabl e Fish, Bekah [facility], PA-C Unavailable Unavailabl e Fish, Bekah [facility], PA-C Unavailable Unavailabl e Fish, Bekah [facility], PA-C Unavailable Unavailabl e Fish, Bekah [facility], PA-C Unavailable Unavailabl e Fish, Bekah [facility], PA-C Unavailable Unavailabl e Fish, Bekah [facility], PA-C Unavailable Unavailabl e CshmidtNancy romero MD Unavailable Unavailable Schmidt, Nancy Jaimes MD Unavailable Unavailable Schmidt, L Theodore GUIDRY Unavailable Unavailable Schmidt, Nancy Jaimes MD Unavailable Unavailable Schmidt, Nancy Jaimes MD Unavailable Unavailable Schmidt, L Theodore GUIDRY Unavailable Unavailable Schmidt, Nancy Jaimes MD Unavailable Unavailable Schmidt, L Theodore GUIDRY Unavailable Unavailable Schmidt, L Theodore GUIDRY Unavailable Unavailable Schmidt, Nancy Jaimes MD Unavailable Unavailable Schmidt, Nancy Jaimes MD Unavailable Unavailable Schmidt, Nancy Jaimes MD Unavailable Unavailable Schmidt, Nancy Jaimes MD Unavailable Unavailable Schmidt, L Theodore GUIDRY Unavailable Unavailable Schmidt, Nancy Jaimes MD Unavailable Unavailable Schmidt, L Theodore GUIDRY Unavailable Unavailable Schmidt, L Theodore GUIDRY Unavailable Unavailable SchmidtNancy MD Unavailable Unavailable Schmidt L Theodore GUIDRY Unavailable Unavailable SchmidtNancy MD Unavailable Unavailable SchmidtNancy MD Unavailable Unavailable Schmidt L Theodore GUIDRY Unavailable Unavailable SchmidtNancy MD Unavailable Unavailable Schmidt L Theodore GUIDRY Unavailable Unavailable Schmidt, L Theodore GUIDRY Unavailable Unavailable Schmidt, L Theodore GUIDRY Unavailable Unavailable Schmidt, L Theodore GUIDRY Unavailable Unavailable Schmidt, L Theodore GUIDRY Unavailable Unavailable Schmidt, Nancy Jaimes MD Unavailable Unavailable Schmidt, L Theodore GUIDRY Unavailable Unavailable Schmidt, L Theodore GUIDRY Unavailable Unavailable Schmidt, Nancy Jaimes MD Unavailable Unavailable Schmidt, L Theodore GUIDRY Unavailable Unavailable Schmidt, Nancy Jaimes MD Unavailable Unavailable Schmidt, L Theodore MD Unavailable Unavailable Nancy Schmidt MD Unavailable Unavailable Nancy Schmidt MD Unavailable Unavailable Nancy Schmidt MD Unavailable Unavailable Nancy Schmidt MD Unavailable Unavailable Nancy Schmidt MD Unavailable Unavailable Nancy Schmidt MD Unavailable Unavailable Nancy Schmidt MD Unavailable Unavailable Nancy Schmidt MD Unavailable Unavailable Nancy Schmidt MD Unavailable Unavailable SchmidtNancy MD Unavailable Unavailable Nancy Schmidt MD Unavailable Unavailable Nancy Schmidt MD Unavailable Unavailable Nancy Schmidt MD Unavailable Unavailable Nancy Schmidt MD Unavailable Unavailable SchmidtNancy MD Unavailable Unavailable DEBONI, R DAVI MD Unavailable Unavailable DEBONI, R DAVI MD Unavailable Unavailable DEBONI, R DAVI MD Unavailable Unavailable DEBONI, R DAVI MD Unavailable Unavailable DEBONI, R DAVI MD Unavailable Unavailable DEBONI, R DAVI MD Unavailable Unavailable DEBONI, R DAVI MD Unavailable Unavailable DEBONI, R DAVI MD Unavailable Unavailable DEBONI, R DAVI MD Unavailable Unavailable DEBONI, R DAVI MD Unavailable Unavailable DEBONI, R DAVI MD Unavailable Unavailable DEBONI, R DAVI MD Unavailable Unavailable DEBONI, R DAVI MD Unavailable Unavailable DEBONI, R DAVI MD Unavailable Unavailable DEBONI, R DAVI MD Unavailable Unavailable DEBONI, R DAVI MD Unavailable Unavailable DEBONI, R DAVI MD Unavailable Unavailable DEBONI, R DAVI MD Unavailable Unavailable DEBONI, R DAVI MD Unavailable Unavailable DEBONI, R DAVI MD Unavailable Unavailable DEBONI, R DAVI MD Unavailable Unavailable DEBONI, R DAVI MD Unavailable Unavailable DEBONI, R DAVI MD Unavailable Unavailable DEBONI, R DAVI MD Unavailable Unavailable DEBONI, R DAVI MD Unavailable Unavailable DEBONI, R DAVI MD Unavailable Unavailable DEBONI, R DVAI MD Unavailable Unavailable DEBONI, R DAVI MD Unavailable Unavailable DEBONI, R DAVI MD Unavailable Unavailable DEBONI, R DAVI MD Unavailable Unavailable DEBONI, R DAVI MD Unavailable Unavailable DEBONI, R DAVI MD Unavailable Unavailable DEBONI, R DAVI MD Unavailable Unavailable DEBONI, R DAVI MD Unavailable Unavailable DEBONI, R DAVI MD Unavailable Unavailable DEBONI, R DAVI MD Unavailable Unavailable DEBONI, R DAVI MD Unavailable Unavailable DEBONI, R DAVI MD Unavailable Unavailable DEBONI, R DAVI MD Unavailable Unavailable DEBONI, R DAVI MD Unavailable Unavailable DEBONI, R DAVI MD Unavailable Unavailable DEBONI, R DAVI MD Unavailable Unavailable DEBONI, R DAVI MD Unavailable Unavailable DEBONI, R DAVI MD Unavailable Unavailable DEBONI, R DAVI MD Unavailable Unavailable DEBONI, R DAVI MD Unavailable Unavailable DEBONI, R DAVI MD Unavailable Unavailable DEBONI, R DAVI MD Unavailable Unavailable DEBONI, R DAVI MD Unavailable Unavailable DEBONI, R DAVI MD Unavailable Unavailable DEBONI, R DAVI MD Unavailable Unavailable DEBONI, R DAVI MD Unavailable Unavailable DEBONI, R DAVI MD Unavailable Unavailable DEBONI, R DAVI MD Unavailable Unavailable DEBONI, R DAVI MD Unavailable Unavailable DEBONI, R DAVI MD Unavailable Unavailable DEBONI, R DAVI MD Unavailable Unavailable DEBONI, R DAVI MD Unavailable Unavailable DEBONI, R DAVI MD Unavailable Unavailable DEBONI, R DAVI MD Unavailable Unavailable DEBONI, R DAVI MD Unavailable Unavailable DEBONI, R DAVI MD Unavailable Unavailable DEBONI, R DAVI MD Unavailable Unavailable DEBONI, R DAVI MD Unavailable Unavailable DEBONI, R DAVI MD Unavailable Unavailable DEBONI, R DAVI MD Unavailable Unavailable DEBONI, R DAVI MD Unavailable Unavailable DEBONI, R DAVI MD Unavailable Unavailable DEBONI, R DAVI MD Unavailable Unavailable DEBONI, R DAVI MD Unavailable Unavailable DEBONI, R DAVI MD Unavailable Unavailable DEBONI, R DAVI MD Unavailable Unavailable DEBONI, R DAVI MD Unavailable Unavailable DEBONI, R DAVI MD Unavailable Unavailable DEBONI, R DAVI MD Unavailable Unavailable Elena, M Barratt PA Unavailable Unavailable Elena, M Barratt PA Unavailable Unavailable Elena, M Barratt PA Unavailable Unavailable Elena, M Barratt PA Unavailable Unavailable Elena, M Barratt PA Unavailable Unavailable Elena, M Barratt PA Unavailable Unavailable Elena, M Barratt PA Unavailable Unavailable Elena, M Barratt PA Unavailable Unavailable Elena, M Barratt PA Unavailable Unavailable Elena, M Barratt PA Unavailable Unavailable Elena, M Barratt PA Unavailable Unavailable Elena, M Barratt PA Unavailable Unavailable Elena, M Barratt PA Unavailable Unavailable Elena, M Barratt PA Unavailable Unavailable Elena, M Barratt PA Unavailable Unavailable Elena, M Barratt PA Unavailable Unavailable Elena, M Barratt PA Unavailable Unavailable Elena, M Barratt PA Unavailable Unavailable Elena, M Barratt PA Unavailable Unavailable Elena, M Barratt PA Unavailable Unavailable Elena, M Barratt PA Unavailable Unavailable Elena, M Barratt PA Unavailable Unavailable Elena, M Barratt PA Unavailable Unavailable Elena, M Barratt PA Unavailable Unavailable Elena, M Barratt PA Unavailable Unavailable Elena, M Barratt PA Unavailable Unavailable Elena, M Barratt PA Unavailable Unavailable Elena, M Barratt PA Unavailable Unavailable Elena, M Barratt PA Unavailable Unavailable LAVELLE RIOS MD Unavailable Unavailable LAVELLE RIOS MD Unavailable Unavailable LAVELLE RIOS MD Unavailable Unavailable LAVELLE RIOS MD Unavailable Unavailable LAVELLE RIOS MD Unavailable Unavailable LAVELLE RIOS MD Unavailable Unavailable LAVELLE RIOS MD Unavailable Unavailable LAVELLE RIOS MD Unavailable Unavailable LAVELLE RIOS MD Unavailable Unavailable LAVELLE RIOS MD Unavailable Unavailable LAVELLE RIOS MD Unavailable Unavailable LAVELLE RIOS MD Unavailable Unavailable LAVELLE RIOS MD Unavailable Unavailable LAVELLE RIOS MD Unavailable Unavailable LAVELLE RIOS MD Unavailable Unavailable LAVELLE RIOS MD Unavailable Unavailable LAVELLE RIOS MD Unavailable Unavailable LAVELLE RIOS MD Unavailable Unavailable LAVELLE RIOS MD Unavailable Unavailable LAVELLE RIOS MD Unavailable Unavailable LAVELLE RIOS MD Unavailable Unavailable LAVELLE RIOS MD Unavailable Unavailable LAVELLE RIOS MD Unavailable Unavailable LAVELLE RIOS MD Unavailable Unavailable LAVELLE RIOS MD Unavailable Unavailable LAVELLE RIOS MD Unavailable Unavailable LAVELLE RIOS MD Unavailable Unavailable LAVELLE RIOS MD Unavailable Unavailable LAVELLE RIOS MD Unavailable Unavailable LAVELLE RIOS MD Unavailable Unavailable LAVELLE RIOS MD Unavailable Unavailable LAVELLE RIOS MD Unavailable Unavailable LAVELLE RIOS MD Unavailable Unavailable LAVELLE RIOS MD Unavailable Unavailable LAVELLE RIOS MD Unavailable Unavailable LAVELLE RIOS MD Unavailable Unavailable LAVELLE RIOS MD Unavailable Unavailable LAVELLE RIOS MD Unavailable Unavailable LAVELLE RIOS MD Unavailable Unavailable LAVELLE RIOS MD Unavailable Unavailable LAVELLE RIOS MD Unavailable Unavailable LAVELLE RIOS MD Unavailable Unavailable LAVELLE RIOS MD Unavailable Unavailable LAVELLE RIOS MD Unavailable Unavailable LAVELLE RIOS MD Unavailable Unavailable LAVELLE RIOS MD Unavailable Unavailable LAVELLE RIOS MD Unavailable Unavailable LAVELLE RIOS MD Unavailable Unavailable LAVELLE RIOS MD Unavailable Unavailable LAVELLE RIOS MD Unavailable Unavailable LAVELLE RIOS MD Unavailable Unavailable LAVELLE RIOS MD Unavailable Unavailable LAVELLE RIOS MD Unavailable Unavailable LAVELLE RIOS MD Unavailable Unavailable LAVELLE RIOS MD Unavailable Unavailable LAVELLE RIOS MD Unavailable Unavailable LAVELLE RIOS MD Unavailable Unavailable LAVELLE RIOS MD Unavailable Unavailable LAVELLE RIOS MD Unavailable Unavailable LAVELLE RIOS MD Unavailable Unavailable LAVELLE RIOS MD Unavailable Unavailable LAVELLE RIOS MD Unavailable Unavailable LAVELLE RIOS MD Unavailable Unavailable LAVELLE RIOS MD Unavailable Unavailable LAVELLE RIOS MD Unavailable Unavailable LAVELLE RIOS MD Unavailable Unavailable LAVELLE RIOS MD Unavailable Unavailable LAVELLE RIOS MD Unavailable Unavailable LAVELLE RIOS MD Unavailable Unavailable LAVELLE RIOS MD Unavailable Unavailable LAVELLE RIOS MD Unavailable Unavailable LAVELLE RIOS MD Unavailable Unavailable LAVELLE RIOS MD Unavailable Unavailable LAVELLE RIOS MD Unavailable Unavailable LAVELLE RIOS MD Unavailable Unavailable LAVELLE RIOS MD Unavailable Unavailable LAVELLE RIOS MD Unavailable Unavailable LAVELLE RIOS MD Unavailable Unavailable LAVELLE RIOS MD Unavailable Unavailable LAVELLE RIOS MD Unavailable Unavailable LAVELLE RIOS MD Unavailable Unavailable LAVELLE RIOS MD Unavailable Unavailable LAVELLE RIOS MD Unavailable Unavailable LAVELLE RIOS MD Unavailable Unavailable LAVELLE RIOS MD Unavailable Unavailable LAVELLE RIOS MD Unavailable Unavailable LAVELLE RIOS MD Unavailable Unavailable LAVELLE RIOS MD Unavailable Unavailable LAVELLE RIOS MD Unavailable Unavailable LAVELLE RIOS MD Unavailable Unavailable LAVELLE RIOS MD Unavailable Unavailable LAVELLE RIOS MD Unavailable Unavailable LAVELLE RIOS MD Unavailable Unavailable LAVELLE RIOS MD Unavailable Unavailable LAVELLE RIOS MD Unavailable Unavailable Sweet, Gambee Mary PA-C Unavailable Unavailable Sweet, Gambee Mary PA-C Unavailable Unavailable Sweet, Gambee Mary PA-C Unavailable Unavailable Sweet, Gambee Mary PA-C Unavailable Unavailable Sweet, Gambee Mary PA-C Unavailable Unavailable Sweet, Gambee Mary PA-C Unavailable Unavailable Sweet, Gambee Mary PA-C Unavailable Unavailable Sweet, Gambee Mary PA-C Unavailable Unavailable Sweet, Gambee Mary PA-C Unavailable Unavailable Sweet, Gambee Mary PA-C Unavailable Unavailable Sweet, Gambee Mary PA-C Unavailable Unavailable Sweet, Gambee Mary PA-C Unavailable Unavailable Sweet, Gambee Mary PA-C Unavailable Unavailable Sweet, Gambee Mary PA-C Unavailable Unavailable Sweet, Gambee Mary PA-C Unavailable Unavailable Sweet, Gambee Mary PA-C Unavailable Unavailable Sweet, Gambee Mary PA-C Unavailable Unavailable Sweet, Gambee Mary PA-C Unavailable Unavailable Sweet, Gambee Mary PA-C Unavailable Unavailable Sweet, Gambee Mary PA-C Unavailable Unavailable Sweet, Gambee Mary PA-C Unavailable Unavailable Sweet, Gambee Mary PA-C Unavailable Unavailable Sweet, Gambee Mary PA-C Unavailable Unavailable Sweet, Gambee Mary PA-C Unavailable Unavailable Sweet, Gambee Mary PA-C Unavailable Unavailable Sweet, Gambee Mary PA-C Unavailable Unavailable Sweet, Gambee Mary PA-C Unavailable Unavailable Sweet, Gambee Mary PA-C Unavailable Unavailable Sweet, Gambee Mary PA-C Unavailable Unavailable Sweet, Gambee Mary PA-C Unavailable Unavailable Sweet, Gambee Mary PA-C Unavailable Unavailable Sweet, Gambee Mary PA-C Unavailable Unavailable Sweet, Gambee Mary PA-C Unavailable Unavailable Sweet, Gambee Mary PA-C Unavailable Unavailable Sweet, Gambee Mary PA-C Unavailable Unavailable Sweet, Gambee Mary PA-C Unavailable Unavailable Sweet, Gambee Mary PA-C Unavailable Unavailable Sweet, Gambee Mary PA-C Unavailable Unavailable Sweet, Gambee Mary PA-C Unavailable Unavailable Sweet, Gambee Mary PA-C Unavailable Unavailable Jacqueline VITAL MD Unavailable Unavailable Jacqueline VITAL MD Unavailable Unavailable Jacqueline VITAL MD Unavailable Unavailable Jacqueline VITAL MD Unavailable Unavailable Jacqueline VITAL MD Unavailable Unavailable Jacqueline VITAL MD Unavailable Unavailable Jacqueline VITAL MD Unavailable Unavailable Jacqueline VITAL MD Unavailable Unavailable Jacqueline VITAL MD Unavailable Unavailable Jacqueline VITAL MD Unavailable Unavailable Jacqueline VITAL MD Unavailable Unavailable Jacqueline VITAL MD Unavailable Unavailable Jacqueline VITAL MD Unavailable Unavailable Jacqueline VITAL MD Unavailable Unavailable Jacqueline VITAL MD Unavailable Unavailable Jacqueline VITAL MD Unavailable Unavailable Jacqueline VITAL MD Unavailable Unavailable Jacqueline VITAL MD Unavailable Unavailable Jacqueline VITAL MD Unavailable Unavailable Jacqueline VITAL MD Unavailable Unavailable Jacqueline VITAL MD Unavailable Unavailable Jacqueline VITAL MD Unavailable Unavailable Jacqueline VITAL MD Unavailable Unavailable Jacqueline VITAL MD Unavailable Unavailable Jacqueline VITAL MD Unavailable Unavailable Jacqueline VITAL MD Unavailable Unavailable Jacqueline VITAL MD Unavailable Unavailable Jacqueline VITAL MD Unavailable Unavailable Jacqueline VITAL MD Unavailable Unavailable Jacqueline VITAL MD Unavailable Unavailable Jacqueline VITAL MD Unavailable Unavailable Jacqueline VITAL MD Unavailable Unavailable Jacqueline VITAL MD Unavailable Unavailable KHAIRALLAH, RAMZI MD Unavailable Unavailable KHAIRALLAH, RAMZI MD Unavailable Unavailable KHAIRALLAH, RAMZI MD Unavailable Unavailable KHAIRALLAH, RAMZI MD Unavailable Unavailable KHAIRALLAH, RAMZI MD Unavailable Unavailable KHAIRALLAH, RAMZI MD Unavailable Unavailable KHAIRALLAH, RAMZI MD Unavailable Unavailable KHAIRALLAH, RAMZI MD Unavailable Unavailable KHAIRALLAH, RAMZI MD Unavailable Unavailable KHAIRALLAH, RAMZI MD Unavailable Unavailable KHAIRALLAH, RAMZI MD Unavailable Unavailable KHAIRALLAH, RAMZI MD Unavailable Unavailable KHAIRALLAH, RAMZI MD Unavailable Unavailable KHAIRALLAH, RAMZI MD Unavailable Unavailable KHAIRALLAH, RAMZI MD Unavailable Unavailable KHAIRALLAH, RAMZI MD Unavailable Unavailable KHAIRALLAH, RAMZI MD Unavailable Unavailable KHAIRALLAH, RAMZI MD Unavailable Unavailable KHAIRALLAH, RAMZI MD Unavailable Unavailable KHAIRALLAH, RAMZI MD Unavailable Unavailable KHAIRALLAH, RAMZI MD Unavailable Unavailable KHAIRALLAH, RAMZI MD Unavailable Unavailable KHAIRALLAH, RAMZI MD Unavailable Unavailable KHAIRALLAH, RAMZI MD Unavailable Unavailable KHAIRALLAH, RAMZI MD Unavailable Unavailable KHAIRALLAH, RAMZI MD Unavailable Unavailable KHAIRALLAH, RAMZI MD Unavailable Unavailable KHAIRALLAH, RAMZI MD Unavailable Unavailable KHAIRALLAH, RAMZI MD Unavailable Unavailable KHAIRALLAH, RAMZI MD Unavailable Unavailable KHAIRALLAH, RAMZI MD Unavailable Unavailable KHAIRALLAH, RAMZI MD Unavailable Unavailable KHAIRALLAH, RAMZI MD Unavailable Unavailable KHAIRALLAH, RAMZI MD Unavailable Unavailable KHAIRALLAH, RAMZI MD Unavailable Unavailable KHAIRALLAH, RAMZI MD Unavailable Unavailable KHAIRALLAH, RAMZI MD Unavailable Unavailable KHAIRALLAH, RAMZI MD Unavailable Unavailable KHAIRALLAH, RAMZI MD Unavailable Unavailable KHAIRALLAH, RAMZI MD Unavailable Unavailable KHAIRALLAH, RAMZI MD Unavailable Unavailable KHAIRALLAH, RAMZI MD Unavailable Unavailable KHAIRALLAH, RAMZI MD Unavailable Unavailable KHAIRALLAH, RAMZI MD Unavailable Unavailable KHAIRALLAH, RAMZI MD Unavailable Unavailable KHAIRALLAH, RAMZI MD Unavailable Unavailable KHAIRALLAH, RAMZI MD Unavailable Unavailable KHAIRALLAH, RAMZI MD Unavailable Unavailable KHAIRALLAH, RAMZI MD Unavailable Unavailable KHAIRALLAH, RAMZI MD Unavailable Unavailable KHAIRALLAH, RAMZI MD Unavailable Unavailable KHAIRALLAH, RAMZI MD Unavailable Unavailable KHAIRALLAH, RAMZI MD Unavailable Unavailable KHAIRALLAH, RAMZI MD Unavailable Unavailable KHAIRALLAH, RAMZI MD Unavailable Unavailable KHAIRALLAH, RAMZI MD Unavailable Unavailable KHAIRALLAH, RAMZI MD Unavailable Unavailable KHAIRALLAH, RAMZI MD Unavailable Unavailable KHAIRALLAH, RAMZI MD Unavailable Unavailable KHAIRALLAH, RAMZI MD Unavailable Unavailable KHAIRALLAH, RAMZI MD Unavailable Unavailable KHAIRALLAH, RAMZI MD Unavailable Unavailable KHAIRALLAH, RAMZI MD Unavailable Unavailable KHAIRALLAH, RAMZI MD Unavailable Unavailable KHAIRALLAH, RAMZI MD Unavailable Unavailable KHAIRALLAH, RAMZI MD Unavailable Unavailable KHAIRALLAH, RAMZI MD Unavailable Unavailable KHAIRALLAH, RAMZI MD Unavailable Unavailable KHAIRALLAH, RAMZI MD Unavailable Unavailable KHAIRALLAH, RAMZI MD Unavailable Unavailable KHAIRALLAH, RAMZI MD Unavailable Unavailable KHAIRALLAH, RAMZI MD Unavailable Unavailable KHAIRALLAH, RAMZI MD Unavailable Unavailable KHAIRALLAH, RAMZI MD Unavailable Unavailable KHAIRALLAH, RAMZI MD Unavailable Unavailable KHAIRALLAH, RAMZI MD Unavailable Unavailable KHAIRALLAH, RAMZI MD Unavailable Unavailable KHAIRALLAH, RAMZI MD Unavailable Unavailable KHAIRALLAH, RAMZI MD Unavailable Unavailable KHAIRALLAH, RAMZI MD Unavailable Unavailable KHAIRALLAH, RAMZI MD Unavailable Unavailable KHAIRALLAH, RAMZI MD Unavailable Unavailable KHAIRALLAH, RAMZI MD Unavailable Unavailable KHAIRALLAH, RAMZI MD Unavailable Unavailable KHAIRALLAH, RAMZI MD Unavailable Unavailable KHAIRALLAH, RAMZI MD Unavailable Unavailable KHAIRALLAH, RAMZI MD Unavailable Unavailable KHAIRALLAH, RAMZI MD Unavailable Unavailable Lisbeth Paul MD Unavailable Unavailable Lisbeth Paul MD Unavailable Unavailable Lisbeth Paul MD Unavailable Unavailable Lisbeth Paul MD Unavailable Unavailable Lisbeth Paul MD Unavailable Unavailable Pasniciuc, I Lenore GUIDRY Unavailable Unavailable Pasniciuc, I Lenore GUIDRY Unavailable Unavailable Pasniciuc, I Lenore GUIDRY Unavailable Unavailable Pasniciuc, I Lenore GUIDRY Unavailable Unavailable Pasniciuc, I Lenore GUIDRY Unavailable Unavailable Pasniciuc, I Lenore GUIDRY Unavailable Unavailable Pasniciuc, I Lenore GUIDRY Unavailable Unavailable Pasniciuc, I Lenore GUIDRY Unavailable Unavailable Pasniciuc, I Lenore GUIDRY Unavailable Unavailable Pasniciuc, I Lenore GUIDRY Unavailable Unavailable Pasniciuc, I Lenore GUIDRY Unavailable Unavailable Pasniciuc, I Lenore GUIDRY Unavailable Unavailable Pasniciuc, I Lenore GUIDRY Unavailable Unavailable Pasniciuc, I Lenore GUIDRY Unavailable Unavailable Pasniciuc, I Lenore GUIDRY Unavailable Unavailable Pasniciuc, I Lenore GUIDRY Unavailable Unavailable Pasniciuc, I Lenore GUIDRY Unavailable Unavailable Pasniciuc, I Lenore GUIDRY Unavailable Unavailable Pasniciuc, I Lenore GUIDRY Unavailable Unavailable Pasniciuc, I Lenore GUIDRY Unavailable Unavailable Pasniciuc, I Lenore GUIDRY Unavailable Unavailable Pasniciuc, I Lenore GUIDRY Unavailable Unavailable Pasniciuc, I Lenore GUIDRY Unavailable Unavailable Pasniciuc, I Lenore GUIDRY Unavailable Unavailable Pasniciuc, I Lenore GUIDRY Unavailable Unavailable Pasniciuc, Lisbeth Grover MD Unavailable Unavailable Pasniciuc, I Lenore GUIDRY Unavailable Unavailable Pasniciuc, I Lenore GUIDRY Unavailable Unavailable Pasniciuc, I Lenore GUIDRY Unavailable Unavailable Pasniciuc, I Lenore GUIDRY Unavailable Unavailable Pasniciuc, Lisbeth Grover MD Unavailable Unavailable Pasniciuc, Lisbeth Grover MD Unavailable Unavailable Pasniciuc, I Lenore GUIDRY Unavailable Unavailable Pasniciuc, Lisbeth Grover MD Unavailable Unavailable Pasniciuc, Lisbeth Grover MD Unavailable Unavailable Pasniciuc, Lisbeth Grover MD Unavailable Unavailable Pasniciuc, Lisbeth Grover MD Unavailable Unavailable Pasniciuc, Lisbeth Grover MD Unavailable Unavailable Pasniciuc, Lisbeth Grover MD Unavailable Unavailable Pasniciuc, I Lenore GUIDRY Unavailable Unavailable Pasniciuc, Lisbeth Grover MD Unavailable Unavailable Pasniciuc, I Lenore GUIDRY Unavailable Unavailable Pasniciuc, Lisbeth Grover MD Unavailable Unavailable Pasniciuc, Lisbeth Grover MD Unavailable Unavailable Pasniciuc, Lisbeth Grover MD Unavailable Unavailable Garcia, Mirian HYPERION DEVELOPER Unavailable Unavailable Garcia, Mirian HYPERION DEVELOPER Unavailable Unavailable Garcia, Mirian HYPERION DEVELOPER Unavailable Unavailable Garcia, Mirian HYPERION DEVELOPER Unavailable Unavailable Garcia, Mirian HYPERION DEVELOPER Unavailable Unavailable Garcia, Mirian HYPERION DEVELOPER Unavailable Unavailable Garcia, Mirian HYPERION DEVELOPER Unavailable Unavailable Garcia, Mirian HYPERION DEVELOPER Unavailable Unavailable Garcia, Mirian HYPERION DEVELOPER Unavailable Unavailable Garcia, Mirian HYPERION DEVELOPER Unavailable Unavailable Garcia, Mirian HYPERION DEVELOPER Unavailable Unavailable Garcia, Mirian HYPERION DEVELOPER Unavailable Unavailable Garcia, Mirian HYPERION DEVELOPER Unavailable Unavailable LETTIERE, A RAFFY PA Unavailable Unavailable LETTIERE, A RAFFY PA Unavailable Unavailable LETTIERE, A RAFFY PA Unavailable Unavailable LETTIERE, A RAFFY PA Unavailable Unavailable LETTIERE, A RAFFY PA Unavailable Unavailable LETTIERE, A RAFFY PA Unavailable Unavailable LETTIERE, A RAFFY PA Unavailable Unavailable LETTIERE, A RAFFY PA Unavailable Unavailable LETTIERE, A RAFFY PA Unavailable Unavailable LETTIERE, A RAFFY PA Unavailable Unavailable LETTIERE, A RAFFY PA Unavailable Unavailable LETTIERE, A RAFFY PA Unavailable Unavailable LETTIERE, A RAFFY PA Unavailable Unavailable LETTIERE, A RAFFY PA Unavailable Unavailable LETTIERE, A RAFFY PA Unavailable Unavailable LETTIERE, A RAFFY PA Unavailable Unavailable LETTIERE, A RAFFY PA Unavailable Unavailable LETTIERE, A RAFFY PA Unavailable Unavailable LETTIERE, A RAFFY PA Unavailable Unavailable LETTIERE, A RAFFY PA Unavailable Unavailable LETTIERE, A RAFFY PA Unavailable Unavailable LETTIERE, A RAFFY PA Unavailable Unavailable LETTIERE, A RAFFY PA Unavailable Unavailable LETTIERE, A RAFFY PA Unavailable Unavailable LETTIERE, A RAFFY PA Unavailable Unavailable LETTIERE, A RAFFY PA Unavailable Unavailable LETTIERE, A RAFFY PA Unavailable Unavailable LETTIERE, A RAFFY PA Unavailable Unavailable LETTIERE, A RAFFY PA Unavailable Unavailable LETTIERE, A RAFFY PA Unavailable Unavailable LETTIERE, A RAFFY PA Unavailable Unavailable MANDI (CANDICE), Woodrow ZAVALA MD Unavailable Unavailab le MANDI (CANDICE), Woodrow ZAVALA MD Unavailable Unavailab le MANDI (CANDICE), Woodrow ZAVALA MD Unavailable Unavailab le MANDI (CANDICE), Woodrow ZAVALA MD Unavailable Unavailab le MANDI (CANDICE), Woodrow ZAVALA MD Unavailable Unavailab le MANDI (CANDICE), Woodrow ZAVALA MD Unavailable Unavailab le MANDI (CANDICE), Woodrow ZAVALA MD Unavailable Unavailab le MANDI (CANDICE), Woodrow ZAVALA MD Unavailable Unavailab le MANDI (CANDICE), Woodrow ZAVALA MD Unavailable Unavailab le MANDI (CANDICE), Woodrow ZAVALA MD Unavailable Unavailab le MANDI (CANDICE), Woodrow ZAVALA MD Unavailable Unavailab le MANDI (CANDICE), Woodrow ZAVALA MD Unavailable Unavailab le MANDI (CANDICE), Woodrow ZAVALA MD Unavailable Unavailab le MANDI (CANDICE), Woodrow ZAVALA MD Unavailable Unavailab le MANDI (CANDICE), Woodrow ZAVALA MD Unavailable Unavailab le MANDI (CANDICE), Woodrow ZAVALA MD Unavailable Unavailab le MANDI (CANDICE), Woodrow ZAVALA MD Unavailable Unavailab le MANDI (CANDICE), Woodrow ZAVALA MD Unavailable Unavailab le MANDI (CANDICE), Woodrow ZAVALA MD Unavailable Unavailab le MANDI (CANDICE), Woodrow ZAVALA MD Unavailable Unavailab le MANDI (CANDICE), Woodrow ZAVALA MD Unavailable Unavailab le MANDI (CANDICE), Woodrow ZAVALA MD Unavailable Unavailab le MANDI (CANDICE), Woodrow ZAVALA MD Unavailable Unavailab le MANDI (CANDICE), Woodrow ZAVALA MD Unavailable Unavailab le MANDI (CANDICE), Woodrow ZAVALA MD Unavailable Unavailab le MANDI (CANDICE), Woodrow ZAVALA MD Unavailable Unavailab le MANDI (CANDICE), Woodrow ZAVALA MD Unavailable Unavailab le MANDI (CANDICE), Woodrow ZAVALA MD Unavailable Unavailab le MANDI (CANDICE), Woodrow ZAVALA MD Unavailable Unavailab le MANDI (CANDICE), Woodrow ZAVALA MD Unavailable Unavailab le MANDI (CANDICE), Woodrow ZAVALA MD Unavailable Unavailab le MANDI (CANDICE), Woodrow ZAVALA MD Unavailable Unavailab le MANDI (CANDICE), Woodrow ZAVALA MD Unavailable Unavailab le MANDI (CANDICE), Woodrow ZAVALA MD Unavailable Unavailab le MANDI (CANDICE), Woodrow ZAVALA MD Unavailable Unavailab le MANDI (CANDICE), Woodrow ZAVALA MD Unavailable Unavailab le MANDI (CANDICE), Woodrow ZAVALA MD Unavailable Unavailab le MANDI (CANDICE), Woodrow ZAVALA MD Unavailable Unavailab le MANDI (CANDICE), Woodrow ZAVALA MD Unavailable Unavailab le MANDI (CANDICE), Woodrow ZAVALA MD Unavailable Unavailab le MANDI (CANDICE), Woodrow ZAVALA MD Unavailable Unavailab le MANDI (CANDICE), Woodrow ZAVALA MD Unavailable Unavailab le MANDI (CANDICE), Woodrow ZAVALA MD Unavailable Unavailab le MANDI (CANDICE), Woodrow ZAVALA MD Unavailable Unavailab le MANDI (CANDICE), Woodrow ZAVALA MD Unavailable Unavailab le MANDI (CANDICE), Woodrow ZAVALA MD Unavailable Unavailab le MANDI (CANDICE), Woodrow ZAVALA MD Unavailable Unavailab le MANDI (CANDICE), Woodrow ZAVALA MD Unavailable Unavailab le MANDI (CANDICE), Woodrow ZAVALA MD Unavailable Unavailab le MANDI (CANDICE), Woodrow ZAVALA MD Unavailable Unavailab le MANDI (CANDICE), Woodrow ZAVALA MD Unavailable Unavailab le MANDI (CANDICE), Woodrow ZAVALA MD Unavailable Unavailab le MANDI (CANDICE), Woodrow ZAVALA MD Unavailable Unavailab le MANDI (CANDICE), Woodrow ZAVALA MD Unavailable Unavailab le MANDI (CANDICE), Woodrow ZAVALA MD Unavailable Unavailab le MANDI (CANDICE), Woodrow ZAVALA MD Unavailable Unavailab le MANDI (CANDICE), Woodrow ZAVALA MD Unavailable Unavailab le MANDI (CANDICE), Woodrow ZAVALA MD Unavailable Unavailab le MANDI (CANDICE), Woodrow ZAVALA MD Unavailable Unavailab le MANDI (CANDICE), Woodrow ZAVALA MD Unavailable Unavailab le MANDI (CANDICE), Woodrow ZAVALA MD Unavailable Unavailab le MANDI (CANDICE), Woodrow ZAVALA MD Unavailable Unavailab le MANDI (CANDICE), Woodrow ZAVALA MD Unavailable Unavailab le MANDI (CANDICE), Woodrow ZAVALA MD Unavailable Unavailab le MANDI (CANDICE), Woodrow ZAVALA MD Unavailable Unavailab le MANDI (CANDICE), Woodrow ZAVALA MD Unavailable Unavailab le MANDI (CANDICE), Woodrow ZAVALA MD Unavailable Unavailab le MANDI (CANDICE), Woodrow ZAVALA MD Unavailable Unavailab le MANDI (CANDICE), Woodrow ZAVALA MD Unavailable Unavailab le MANDI (CANDICE), Woodrow ZAVALA MD Unavailable Unavailab le MANDI (CANDICE), Woodrow ZAVALA MD Unavailable Unavailab le MANDI (CANDICE), Woodrow ZAVALA MD Unavailable Unavailab le MANDI (CANDICE), Woodrow ZAVALA MD Unavailable Unavailab le MANDI (CANDICE), Woodrow ZAVALA MD Unavailable Unavailab le MANDI (CANDICE), Woodrow ZAVALA MD Unavailable Unavailab le MANDI (CANDICE), Woodrow ZAVALA MD Unavailable Unavailab le MANDI (CANDICE), Woodrow ZAVALA MD Unavailable Unavailab le MANDI (CANDICE), Woodrow ZAVALA MD Unavailable Unavailab le MANDI (CANDICE), Woodrow ZAVALA MD Unavailable Unavailab le MANDI (CANDICE), Woodrow ZAVALA MD Unavailable Unavailab le MANDI (CANDICE), Woodrow ZAVALA MD Unavailable Unavailab le MANDI (CANDICE), Woodrow ZAVALA MD Unavailable Unavailab le MANDI (CANDICE), Woodrow ZAVALA MD Unavailable Unavailab le MANDI (CANDICE), Woodrow ZAVALA MD Unavailable Unavailab le MANDI (CANDICE), Woodrow ZAVALA MD Unavailable Unavailab le MANDI (CANDICE), Woodrow ZAVALA MD Unavailable Unavailab le MANDI (CANDICE), Woodrow ZAVALA MD Unavailable Unavailab le Almazan, Zhane Alea PA Unavailable Unavailable Almazan, Zhane Alea PA Unavailable Unavailable Almazan, Zhane Alea PA Unavailable Unavailable Almazan, Zhane Alea PA Unavailable Unavailable Almazan, Zhane Alea PA Unavailable Unavailable Almazan, Zhane Alea PA Unavailable Unavailable Almazan, Zhane Alea PA Unavailable Unavailable Almazan, Zhane Alea PA Unavailable Unavailable Almazan, Zhane Alea PA Unavailable Unavailable Almazan, Zhane Alea PA Unavailable Unavailable LAVELLE RIOS MD Unavailable Unavailable LAVELLE RIOS MD Unavailable Unavailable LAVELLE RIOS MD Unavailable Unavailable LAVELLE RIOS MD Unavailable Unavailable LAVELLE RIOS MD Unavailable Unavailable LAVELLE RIOS MD Unavailable Unavailable LAVELLE RIOS MD Unavailable Unavailable LAVELLE RIOS MD Unavailable Unavailable LAVELLE RIOS MD Unavailable Unavailable LAVELLE RIOS MD Unavailable Unavailable LAVELLE RIOS MD Unavailable Unavailable LAVELLE RIOS MD Unavailable Unavailable LAVELLE RIOS MD Unavailable Unavailable LAVELLE RIOS MD Unavailable Unavailable LAVELLE RIOS MD Unavailable Unavailable LAVELLE RIOS MD Unavailable Unavailable LAVELLE RIOS MD Unavailable Unavailable LAVELLE RIOS MD Unavailable Unavailable LAVELLE RIOS MD Unavailable Unavailable LAVELLE RIOS MD Unavailable Unavailable LAVELLE RIOS MD Unavailable Unavailable LAVELLE RIOS MD Unavailable Unavailable LAVELLE RIOS MD Unavailable Unavailable LAVELLE RIOS MD Unavailable Unavailable LAVELLE RIOS MD Unavailable Unavailable LAVELLE RIOS MD Unavailable Unavailable LAVELLE RIOS MD Unavailable Unavailable LAVELLE RIOS MD Unavailable Unavailable LAVELLE RIOS MD Unavailable Unavailable LAVELLE RIOS MD Unavailable Unavailable LAVELLE RIOS MD Unavailable Unavailable LAVELLE RIOS MD Unavailable Unavailable LAVELLE RIOS MD Unavailable Unavailable LAVELLE RIOS MD Unavailable Unavailable LAVELLE RIOS MD Unavailable Unavailable LAVELLE RIOS MD Unavailable Unavailable LAVELLE RIOS MD Unavailable Unavailable LAVELLE RIOS MD Unavailable Unavailable LAVELLE RIOS MD Unavailable Unavailable LAVELLE RIOS MD Unavailable Unavailable LAVELLE RIOS MD Unavailable Unavailable LAVELLE RIOS MD Unavailable Unavailable LAVELLE RIOS MD Unavailable Unavailable LAVELLE RIOS MD Unavailable Unavailable LAVELLE RIOS MD Unavailable Unavailable LAVELLE RIOS MD Unavailable Unavailable LAVELLE RIOS MD Unavailable Unavailable LAVELLE RIOS MD Unavailable Unavailable LAVELLE RIOS MD Unavailable Unavailable LAVELLE RIOS MD Unavailable Unavailable LAVELLE RIOS MD Unavailable Unavailable LAVELLE RIOS MD Unavailable Unavailable LAVELLE RIOS MD Unavailable Unavailable LAVELLE RIOS MD Unavailable Unavailable LAVELLE RIOS MD Unavailable Unavailable LAVELLE RIOS MD Unavailable Unavailable LAVELLE RIOS MD Unavailable Unavailable LAVELLE RIOS MD Unavailable Unavailable LAVELLE RIOS MD Unavailable Unavailable LAVELLE RIOS MD Unavailable Unavailable LAVELLE RIOS MD Unavailable Unavailable LAVELLE RIOS MD Unavailable Unavailable LAVELLE RIOS MD Unavailable Unavailable LAVELLE RIOS MD Unavailable Unavailable LAVELLE RIOS MD Unavailable Unavailable LAVELLE RIOS MD Unavailable Unavailable LAVELLE RIOS MD Unavailable Unavailable LAVELLE RIOS MD Unavailable Unavailable LAVELLE RIOS MD Unavailable Unavailable LAVELLE RIOS MD Unavailable Unavailable LAVELLE RIOS MD Unavailable Unavailable LAVELLE RIOS MD Unavailable Unavailable LAVELLE RIOS MD Unavailable Unavailable LAVELLE RIOS MD Unavailable Unavailable LAVELLE RIOS MD Unavailable Unavailable LAVELLE RIOS MD Unavailable Unavailable LAVELLE RIOS MD Unavailable Unavailable LAVELLE RIOS MD Unavailable Unavailable LAVELLE RIOS MD Unavailable Unavailable LAVELLE RIOS MD Unavailable Unavailable LAVELLE RIOS MD Unavailable Unavailable LAVELLE RIOS MD Unavailable Unavailable LAVELLE RIOS MD Unavailable Unavailable LAVELLE RIOS MD Unavailable Unavailable LAVELLE RIOS MD Unavailable Unavailable LAVELLE RIOS MD Unavailable Unavailable LAVELLE RIOS MD Unavailable Unavailable LAVELLE RIOS MD Unavailable Unavailable LAVELLE RIOS MD Unavailable Unavailable LAVELLE RIOS MD Unavailable Unavailable LAVELLE RIOS MD Unavailable Unavailable LAVELLE RIOS MD Unavailable Unavailable LAVELLE RIOS MD Unavailable Unavailable LAVELLE RIOS MD Unavailable Unavailable LAVELLE RIOS MD Unavailable Unavailable Tran, Eli Sparkle PA-C Unavailable Unavailable Tran, Eli Sparkle PA-C Unavailable Unavailable Tran, Eli Sparkle PA-C Unavailable Unavailable Tran, Eli Sparkle PA-C Unavailable Unavailable Tran, Eli Sparkle PA-C Unavailable Unavailable Tran, Eli Sparkle PA-C Unavailable Unavailable Tran, Eli Sparkle PA-C Unavailable Unavailable Tran, Eli Sparkle PA-C Unavailable Unavailable Tran, Eli Sparkle PA-C Unavailable Unavailable Rtan, Eli Sparkle PA-C Unavailable Unavailable Tran, Eli Sparkle PA-C Unavailable Unavailable Tran, Eli Sparkle PA-C Unavailable Unavailable Tran, Eli Sparkle PA-C Unavailable Unavailable Tran, Eli Sparkle PA-C Unavailable Unavailable Tran, Eli Sparkle PA-C Unavailable Unavailable Tran, Eli Sparkle PA-C Unavailable Unavailable Tran, Eli Sparkle PA-C Unavailable Unavailable Tran, Eli Sparkle PA-C Unavailable Unavailable Tran, Eli Sparkle PA-C Unavailable Unavailable Tran, Eli Sparkle PA-C Unavailable Unavailable Tran, Eli Sparkle PA-C Unavailable Unavailable Tran, Eli Sparkle PA-C Unavailable Unavailable Tran, Eli Sparkle PA-C Unavailable Unavailable Tran, Eli Sparkle PA-C Unavailable Unavailable Tran, Eli Sparkle PA-C Unavailable Unavailable Cade, Gray MD Unavailable Unavailable Cade, Gray MD Unavailable Unavailable Cade, Gray MD Unavailable Unavailable Cade, Gray MD Unavailable Unavailable Cade, Gray MD Unavailable Unavailable Cade, Gray MD Unavailable Unavailable Cade, Gray MD Unavailable Unavailable Cade, Gray MD Unavailable Unavailable Cade, Gray MD Unavailable Unavailable Cade, Gray MD Unavailable Unavailable Cade, Gray MD Unavailable Unavailable Cade, Gray MD Unavailable Unavailable Cade, Gray MD Unavailable Unavailable Cade, Gray MD Unavailable Unavailable Cade, Gray MD Unavailable Unavailable Cade, Gray MD Unavailable Unavailable Cade, Gray MD Unavailable Unavailable Cade, Gray MD Unavailable Unavailable Cade, Gray MD Unavailable Unavailable Cade, Gray MD Unavailable Unavailable Cade, Gray MD Unavailable Unavailable Cade, Gray MD Unavailable Unavailable Cade, Gray MD Unavailable Unavailable Cade, Gray MD Unavailable Unavailable Cade, Gray MD Unavailable Unavailable Cade, Gray MD Unavailable Unavailable Cade, Gray MD Unavailable Unavailable Cade, Gray MD Unavailable Unavailable Cade, Gray MD Unavailable Unavailable Cade, Gray MD Unavailable Unavailable Cade, Gray MD Unavailable Unavailable Cesario Mims Unavailable [phone] Cesario Mims Unavailable [phone] Cesario Mims Unavailable [phone] Cesario Mims Unavailable [phone] Cesario Mims Unavailable [phone] Cesario Mims Unavailable [phone] Campanaro, Mare Merlyn PA Unavailable Unavailable Campanaro, Mare Merlyn PA Unavailable Unavailable Campanaro, Mare Merlyn PA Unavailable Unavailable Campanaro, Mare Merlyn PA Unavailable Unavailable Campanaro, Mare Merlyn PA Unavailable Unavailable Campanaro, Mare Merlyn PA Unavailable Unavailable Campanaro, Mare Merlyn PA Unavailable Unavailable Campanaro, Mare Merlyn PA Unavailable Unavailable Campanaro, Mare Merlyn PA Unavailable Unavailable Campanaro, Mare Merlyn PA Unavailable Unavailable Campanaro, Mare Merlyn PA Unavailable Unavailable Campanaro, Mare Merlyn PA Unavailable Unavailable Campanaro, Mare Merlyn PA Unavailable Unavailable Campanaro, Mare Merlyn PA Unavailable Unavailable Campanaro, Mare Merlyn PA Unavailable Unavailable Campanaro, Mare Merlyn PA Unavailable Unavailable Campanaro, Mare Merlyn PA Unavailable Unavailable ADJAPONG, TYRONE Unavailable Unavailable Nish THOMPSON MD Unavailable Unavailable Nish THOMPSON MD Unavailable Unavailable Nish THOMPSON MD Unavailable Unavailable Nish THOMPSON MD Unavailable Unavailable Nish THOMPSON MD Unavailable Unavailable Nish THOMPSON MD Unavailable Unavailable Nish THOMPSON MD Unavailable Unavailable Nish THOMPSON MD Unavailable Unavailable Nish THOMPSON MD Unavailable Unavailable Nish THOMPSON MD Unavailable Unavailable Nish THOMPSON MD Unavailable Unavailable Nish THOMPSON MD Unavailable Unavailable Nish THOMPSON MD Unavailable Unavailable Nish THOMPSON MD Unavailable Unavailable Nish THOMPSON MD Unavailable Unavailable Nish THOMPSON MD Unavailable Unavailable Nish THOMPSON MD Unavailable Unavailable Nish THOMPSON MD Unavailable Unavailable Nish THOMPSON MD Unavailable Unavailable Nish THOMPSON MD Unavailable Unavailable Nish THOMPSON MD Unavailable Unavailable Nish THOMPSON MD Unavailable Unavailable Nish THOMPSON MD Unavailable Unavailable Nish THOMPSON MD Unavailable Unavailable Nish THOMPSON MD Unavailable Unavailable iNsh THOMPSON MD Unavailable Unavailable Nish THOMPSON MD Unavailable Unavailable Nish THOMPSON MD Unavailable Unavailable Nish THOMPSON MD Unavailable Unavailable Nish THOMPSON MD Unavailable Unavailable Nish THOMPSON MD Unavailable Unavailable Nish THOMPSON MD Unavailable Unavailable Nish THOMPSON MD Unavailable Unavailable Nish THOMPSON MD Unavailable Unavailable Nish THOMPSON MD Unavailable Unavailable Nish THOMPSON MD Unavailable Unavailable Nish THOMPSON MD Unavailable Unavailable Nish THOMPSON MD Unavailable Unavailable Nish THOMPSON MD Unavailable Unavailable Nish THOMPSON MD Unavailable Unavailable Nish THOMPSON MD Unavailable Unavailable Nish THOMPSON MD Unavailable Unavailable Nish THOMPSON MD Unavailable Unavailable Nish THOMPSON MD Unavailable Unavailable Nish THOMPSON MD Unavailable Unavailable Nsih THOMPSON MD Unavailable Unavailable Nish THOMPSON MD Unavailable Unavailable Nish THOMPSON MD Unavailable Unavailable Nish THOMPSON MD Unavailable Unavailable Nish THOMPSON MD Unavailable Unavailable Nish THOMPSON MD Unavailable Unavailable Nish THOMPSON MD Unavailable Unavailable Nish THOMPSON MD Unavailable Unavailable Nish THOMPSON MD Unavailable Unavailable Nish THOMPSON MD Unavailable Unavailable Nish THOMPSON MD Unavailable Unavailable Nish THOMPSON MD Unavailable Unavailable Nish THOMPSON MD Unavailable Unavailable Nish THOMPSON MD Unavailable Unavailable Nish THOMPSON MD Unavailable Unavailable Nish THOMPSON MD Unavailable Unavailable Nish THOMPSON MD Unavailable Unavailable Nish THOMPSON MD Unavailable Unavailable Nish THOMPSON MD Unavailable Unavailable Nish THOMPSON MD Unavailable Unavailable Nish THOMPSON MD Unavailable Unavailable Nish THOMPSON MD Unavailable Unavailable Nish THOMPSON MD Unavailable Unavailable Nish THOMPSON MD Unavailable Unavailable Shaorn PARK MD Unavailable Unavailable Sharon PARK MD Unavailable Unavailable Sharon PARK MD Unavailable Unavailable Sharon PARK MD Unavailable Unavailable Sharon PARK MD Unavailable Unavailable Sharon PARK MD Unavailable Unavailable Sharon PARK MD Unavailable Unavailable Sharon PARK MD Unavailable Unavailable Sharon PARK MD Unavailable Unavailable Sharon PARK MD Unavailable Unavailable Sharon PARK MD Unavailable Unavailable Re-disclosure Warning The records that you are about to access may contain information from federally-assisted alcohol or drug abuse programs. If such information is present, then the following federally mandated warning applies: This information has been disclosed to you from records protected by federal confidentiality rules (42 CFR part 2). The federal rules prohibit you from making any further disclosure of this information unless further disclosure is expressly permitted by the written consent of the person to whom it pertains or as otherwise permitted by 42 CFR part 2. A general authorization for the release of medical or other information is NOT sufficient for this purpose. The Federal rules restrict any use of the information to criminally investigate or prosecute any alcohol or drug abuse patient.The records that you are about to access may contain highly sensitive health information, the redisclosure of which is protected by Article 27-F of the [facility] Public Health law. If you continue you may have access to information: Regarding HIV / AIDS; Provided by facilities licensed or operated by the [facility] Office of Mental Health; or Provided by the [facility] Office for People With Developmental Disabilities. If such information is present, then the following [facility] mandated warning applies: This information has been disclosed to you from confidential records which are protected by state law. State law prohibits you from making any further disclosure of this information without the specific written consent of the person to whom it pertains, or as otherwise permitted by law. Any unauthorized further disclosure in violation of state law may result in a fine or senior living sentence or both. A general authorization for the release of medical or other information is NOT sufficient authorization for further disc losure. Allergies and Adverse Reactions Type Description Substance Reaction Status Data Source(s ) Propensity to adverse reactions amoxicillin sodium AMOXICILLIN SODIUM Active [facility] ([facility]) Propensity to adverse reactions metoclopramide hydrochloride MET OCLOPRAMIDE HCL Active [facility] ([facility]) Propensity to adverse reactions tizanidine tizanidine Acti ve [facility] ([facility]) Propensity to adverse reactions metaxalone metaxalone Acti ve [facility] ([facility]) Family History Family Member Name Family Member Gender Family Member Status Date o f Status Description Data Source(s) Unknown Female Problem (finding) 07/25/2020 12:00:00 AM EDT [facility] ([facility]) Unknown Female Problem (finding) 07/25/2020 12:00:00 AM EDT [facility] ([facility]) Unknown Unknown Problem [facility] ([facility]) pgf, mets to bone Encounters Encounter Providers Location Date Indications Data Source(s ) Outpatient Attender: Sparkle Tran PA-C 08/16 03:57:28 PM EDT - 09/08/2021 04:38:00 PM EDT [facility] ([facility] ) [place] [address] [address] 09/05/2021 12:00:00 AM EDT [facility]CW1 ([facility]) Outpatient Attender: Gray Sorenson/Cade/Gurinder/Reind l 08/21/2021 10:30:00 AM EDT [facility] ([facility]) [place] [address] [address] 08/21/2021 12:00:00 AM EDT [facility]CW1 ([facility]) [place] [address] [address] 08/20/2021 12:00:00 AM EDT [facility]1 ([facility]) [place] [address] [address] 08/13/2021 12:00:00 AM EDT eCW1 ([facility]) Outpatient Attender: Maral Sorenson/Cade/Gurinder/Reindl 08/07/2021 10:30:00 AM EDT [facility] ([facility]) Outpatient Attender: Gray Sorenson/Monet/Gurinder/Reind l 08/07/2021 09:40:00 AM EDT [facility] ([facility]) [place] [address] [address] 07/31/2021 12:00:00 AM EDT [facility]CW1 ([facility]) Outpatient Attender: Gray Sorenson/Monet/Gurinder/Reind l 07/28/2021 08:00:00 AM EDT [facility] ([facility]) [place] [address] [address] 07/28/2021 12:00:00 AM EDT [facility]CW1 ([facility]) [place] [address] [address] 07/23/2021 12:00:00 AM EDT [facility]1 ([facility]) Outpatient Attender: RAFFY gallegos 07/22/2021 02:10:00 PM EDT [facility] ([facility]) [place] [address] [address] 07/18/2021 12:00:00 AM EDT [facility]CW1 ([facility]) [place] [address] [address] 07/18/2021 12:00:00 AM EDT [facility]CW1 ([facility]) [place] [address] [facility] [place] [address] 07/10/2021 12:00:00 AM EDT [facility]CW1 ([facility]) [place] [address] [address] 07/09/2021 12:00:00 AM EDT [facility]CW1 ([facility]) [place] [address] [address] 07/02/2021 12:00:00 AM EDT [facility] [facility] [place] [address] [facility] [address] 07/01/2021 12:00:00 AM EDT [facility]CW1 ([facility]) [place] [address] [facility] [address] 06/30/2021 12:00:00 AM EDT eCW1 ([facility]) [place] [address] [facility] [address] 06/27/2021 12:00:00 AM EDT eCW1 ([facility]) Outpatient Attender: Cesario Mims 06/26 08:01:51 PM EDT - 06/26/2021 08:45:39 PM EDT [facility] ([facility] ) [place] [address] [facility] [address] 06/26/2021 12:00:00 AM EDT eCW1 ([facility]) Outpatient Attender: Maral Sorenson/Monet/Gurinder/Alia 06/25/2021 10:00:00 AM EDT [facility] ([facility] [place] [address] [facility] [address] 06/24/2021 12:00:00 AM EDT eCW1 ([facility]) Emergency Attender: JANA PARK MDConsultant: PCP NO 06/17/2021 09:29:00 PM EDT - 06/17/2021 11:26:00 PM EDT [facility] Patient discharged. [place] [address] [facility] [place] [address] 06/16/2021 12:00:00 AM EDT eCW1 ([facility]) Unknown [address] [facility] [place] [address] 06/16/2021 12:00:00 AM EDT eCW1 ([facility]) [place] [address] [facility] [address] 06/12/2021 12:00:00 AM EDT eCW1 ([facility]) Unknown [address] [facility] [place] [address] 06/12/2021 12:00:00 AM EDT eCW1 ([facility]) Outpatient Attender: Mirian rodriguez 06/10/2021 12:45:00 PM EDT MEDENT ([facility]) [place] [address] [facility] [address] 06/09/2021 12:00:00 AM EDT eCW1 ([facility]) Unknown [address] [facility] [place] [address] 06/06/2021 12:00:00 AM EDT eCW1 ([facility]) Unknown [address] [facility] [place] [address] 06/05/2021 12:00:00 AM EDT eCW1 ([facility]) Outpatient Attender: NAVYA Sorenson/Monet/Hiren steen/Reindl 06/04/2021 01:00:00 PM EDT MEDENT ([facility] [place] [address] [facility] [address] 06/03/2021 12:00:00 AM EDT eCW1 ([facility]) [place] [address] [facility] [place] [address] 06/02/2021 12:00:00 AM EDT eCW1 ([facility]) [place] [address] [facility] [address] 06/02/2021 12:00:00 AM EDT eCW1 ([facility]) [place] [address] [facility] [place] [address] 06/02/2021 12:00:00 AM EDT eCW1 ([facility]) [place] [address] [facility] [place] [address] 05/29/2021 12:00:00 AM EDT eCW1 ([facility]) Unknown [address] [facility] [place] [address] 05/26/2021 12:00:00 AM EDT eCW1 ([facility]) OFFICE OUTPATIENT VISIT 15 MINUTES Attender: Elizabeth AMC PA-C Physical Therapy 05/22/2021 03:15:00 PM EDT MEDENT ([facility]) Unknown [address] [facility] [address] 05/21/2021 12:00:00 AM EDT eCW1 ([facility]) Unknown [address] [facility] [place] [address] 05/20/2021 12:00:00 AM EDT eCW1 ([facility]) Unknown [address] [facility] [place] [address] 05/19/2021 12:00:00 AM EDT eCW1 ([facility]) [place] [address] [facility] [place] [address] 05/19/2021 12:00:00 AM EDT eCW1 ([facility]) [place] [address] [facility] [address] 05/16/2021 12:00:00 AM EDT eCW1 ([facility]) [place] [address] [facility] [place] [address] 05/14/2021 12:00:00 AM EDT eCW1 ([facility]) Outpatient [address] [facility] [address] 05/13/2021 12:00:00 AM EDT eCW1 ([facility]) [place] [address] [facility] [place] [address] 05/13/2021 12:00:00 AM EDT eCW1 ([facility]) [place] [address] [facility] [place] [address] 05/13/2021 12:00:00 AM EDT eCW1 ([facility]) [place] [address] [facility] [address] 05/10/2021 12:00:00 AM EDT eCW1 ([facility]) [place] [address] [facility] [place] [address] 05/10/2021 12:00:00 AM EDT eCW1 ([facility]) [place] [address] [facility] [place] [address] 05/09/2021 12:00:00 AM EDT eCW1 ([facility]) [place] [address] [facility] [place] [address] 05/09/2021 12:00:00 AM EDT eCW1 ([facility]) Unknown [address] [facility] [place] [address] 05/08/2021 12:00:00 AM EDT eCW1 ([facility]) [place] [address] [facility] [place] [address] 05/07/2021 12:00:00 AM EDT eCW1 ([facility]) Outpatient Attender: Elizabeth MAC PA-C Physical Therapy 04/24/2021 02:40:00 PM EDT MEDENT ([facility]) [place] [address] [facility] [address] 04/24/2021 12:00:00 AM EDT [facility]CW1 [facility] [place] [address] [facility] [place] [address] 04/17/2021 12:00:00 AM EDT eCW1 ([facility]) [place] [address] [facility] [place] [address] 04/15/2021 12:00:00 AM EDT eCW1 [facility] [place] [address] [facility] [place] [address] 04/11/2021 12:00:00 AM EDT eCW1 ([facility]) [place] [address] [facility] [place] [address] 03/31/2021 12:00:00 AM EDT eCW1 [facility] OFFICE OUTPATIENT VISIT 15 MINUTES Attender: Theodore Schmidt MD Phys ical Therapy 03/27/2021 01:15:00 PM EDT MEDENT ([facility]) Outpatient [address] [facility] [address] 03/20/2021 12:00:00 AM EDT eCW1 ([facility]) [place] [address] [facility] [place] [address] 03/17/2021 12:00:00 AM EDT eCW1 ([facility]) Unknown [address] [facility] [place] [address] 03/11/2021 12:00:00 AM EDT eCW1 ([facility]) Outpatient Attender: Elizabeth MAC PA-C Physical Therapy 02/26/2021 01:00:00 PM EDT MEDENT ([facility]) Unknown [address] [facility] [place] [address] 02/24/2021 12:00:00 AM EDT eCW1 ([facility]) Unknown [address] [facility] [place] [address] 02/24/2021 12:00:00 AM EDT eCW1 ([facility]) Outpatient Attender: Elizabeth MAC PA-C Physical Therapy 02/10/2021 04:00:00 PM EDT MEDENT ([facility]) Outpatient Attender: Fletcher SAINZ Physical Therapy 11:15:00 AM EDT MEDENT ([facility]) [place] [address] [facility] [place] [address] 02/06/2021 12:00:00 AM EDT eCW1 ([facility]) Unknown [address] [facility] [place] [address] 02/03/2021 12:00:00 AM EDT eCW1 ([facility]) [place] [address] [facility] [place] [address] 01/23/2021 12:00:00 AM EST eCW1 ([facility]) [place] [address] [facility] [place] [address] 01/23/2021 12:00:00 AM EST eCW1 ([facility]) Unknown [address] [facility] [place] [address] 01/15/2021 12:00:00 AM EST eCW1 ([facility]) [place] [address] [facility] [place] [address] 01/15/2021 12:00:00 AM EST eCW1 ([facility]) [place] [address] [facility] [place] [address] 01/11/2021 12:00:00 AM EST eCW1 ([facility]) [place] [address] [facility] [place] [address] 01/08/2021 12:00:00 AM EST eCW1 ([facility]) [place] [address] [facility] [place] [address] 01/07/2021 12:00:00 AM EST eCW1 ([facility]) [place] [address] [facility] [address] 01/05/2021 12:00:00 AM EST eCW1 ([facility]) Attender: LUCAS BE) MDReferrer: Ann-Marie RIOS MD 01/03/2021 08:21:02 PM EST [facility] [place] [address] [facility] [place] [address] 01/03/2021 12:00:00 AM EST eCW1 ([facility]) Unknown [address] [facility] [place] [address] 01/03/2021 12:00:00 AM EST eCW1 ([facility]) Outpatient Attender: Mary Heard PA-C BF-BF 12:00:00 AM EST - 12/30/2020 02:39:38 PM EST [facility] Outpatient Attender: RAFFY gallegos 12/25/2020 04:10:00 PM EST MEDENT ([facility]) [place] [address] [facility] [place] [address] 12/23/2020 12:00:00 AM EST eCW1 ([facility]) Unknown [address] [facility] [place] [address] 12/23/2020 12:00:00 AM EST eCW1 ([facility]) Unknown [address] [facility] [place] [address] 12/23/2020 12:00:00 AM EST eCW1 ([facility]) Unknown [address] [facility] [place] [address] 12/21/2020 12:00:00 AM EST eCW1 ([facility]) Unknown [address] [facility] [place] [address] 12/20/2020 12:00:00 AM EST eCW1 ([facility]) Outpatient [address] [facility] [place] [address] 12/20/2020 12:00:00 AM EST eCW1 ([facility]) Outpatient [address] [facility] [place] [address] 12/13/2020 12:00:00 AM EST eCW1 ([facility]) Unknown [address] [facility] [place] [address] 12/13/2020 12:00:00 AM EST eCW1 ([facility]) Unknown [address] [facility] [place] [address] 12/13/2020 12:00:00 AM EST eCW1 ([facility]) Unknown [address] [facility] [place] [address] 12/12/2020 12:00:00 AM EST eCW1 ([facility]) Unknown [address] [facility] [place] [address] 12/11/2020 12:00:00 AM EST eCW1 ([facility]) Attender: GABBY KNOTT MD [facility] 11/26/2020 07:09:00 PM EST - 11/26/2020 07:09:00 PM EST [facility] ( [facility]) Outpatient Attender: Alea gallegos 11/24/2020 03:25:00 PM EST MEDENT ([facility]) Unknown [address] [facility] [place] [address] 11/14/2020 12:00:00 AM EST eCW1 ([facility]) Unknown [address] [facility] [place] [address] 11/12/2020 12:00:00 AM EST eCW1 ([facility]) Unknown [address] [facility] [place] [address] 11/12/2020 12:00:00 AM EST eCW1 ([facility]) Outpatient Attender: Merlyn gallegos 11/11/2020 04:40:00 PM EST [facility] ([facility]) Unknown [address] [facility] [place] [address] 11/11/2020 12:00:00 AM EST eCW1 ([facility]) Unknown [address] [facility] [place] [address] 10/27/2020 12:00:00 AM EST eCW1 ([facility]) Outpatient [address] [facility] [place] [address] 10/18/2020 12:00:00 AM EST eCW1 ([facility]) Unknown [address] [facility] [place] [address] 10/11/2020 12:00:00 AM EST eCW1 ([facility]) Unknown [address] [facility] [place] [address] 10/11/2020 12:00:00 AM EST [facility]CW1 [facility]) Outpatient JAILENE 10/08/2020 07:05:52 PM EST [facility] Outpatient Referrer: LAVELLE KIRBY.NAKUL 1 12/08/2019 12:00:00 AM EST [facility] Outpatient [address] [facility] [place] [address] 09/25/2020 12:00:00 AM EST [facility]CW1 [facility] [place] [address] [facility] [place] [address] 09/18/2020 12:00:00 AM EST eCW1 ([facility]) Unknown [address] [facility] [place] [address] 09/11/2020 12:00:00 AM EDT eCW1 ([facility] Unknown [address] [facility] [place] [address] 09/11/2020 12:00:00 AM EDT eCW1 ([facility]) Unknown [address] [facility] [place] [address] 09/02/2020 12:00:00 AM EDT eCW1 ([facility]) Outpatient Admitter: TYRONE MERCADOReferrer: TYRONE MERCADO 08/28/2020 12:00:00 AM EDT - 08/28/2020 11:59:00 PM EDT Localized enlarged lymph nodes [facility] Localized enlarged lymph nodes [place] [address] [facility] [place] [address] 08/16/2020 12:00:00 AM EDT eCW1 ([facility]) [place] [address] [facility] [place] [address] 08/06/2020 12:00:00 AM EDT eCW1 ([facility]) [place] [address] [facility] [place] [address] 08/06/2020 12:00:00 AM EDT eCW1 ([facility]) Outpatient Attender: DAVI ELKINS MDA ttender: JOANA THOMPSON MDReferrer: LAVELLE RIOS MD [facility] 08/05/2020 11:58:46 AM EDT - 08/05/2020 01:31:14 PM EDT [facility] Attender: Len[facility] Paul [facility] 07/31/2020 10:05:00 AM EDT - 07/31/2020 10:05:00 AM EDT [facility] ( [facility]) Attender: Lenore Paul MD [facility] 07/30/2020 03:47:00 PM EDT - 07/30/2020 03:47:00 PM EDT [facility] ( [facility]) Outpatient Referrer: Lenore Paul MD 07/25/2020 11:07:0 9 AM EDT [facility] OutpatientOFFICE/OUTPATIENT VISIT, NEW Attender: Lenore anderson MD [facility] 07/25/2020 09:40:00 AM EDT - 07/25/2020 09:40:00 AM ED T FatigueLow back painOther specified spondylopathies, cervical regionOther termite control technician (current) drug therapyPain NextGen ([facility]) Fatigue Low back pain Other specified spondylopathies, cervica l region Other shelter (current) drug therapy Pain Attender: LUCAS RAYMOND ([place]) MDReferrer: Ann-Marie RIOS MD 07/23/2020 08:20:09 PM EDT [facility] Attender: LUCAS RAYMOND MD ([place]) 0 08:20:09 PM EDT [facility] Attender: LUCAS RAYMOND MD ([place]) 0 08:20:09 PM EDT [facility] Attender: LUCAS RAYMOND MD ([place]) 0 08:20:09 PM EDT [facility] Out[facility] Attender: LAVELLE RIOS MDConsultant : LAVELLE RIOS MD BF-[facility] 07/23/2020 12:00:00 AM EDT - 07/23/2020 04:17:23 PM EDT [facility] Emergency ES1-ES1 07/08/2020 02:32:00 PM EDT - 020 06:53:00 PM EDT [facility] Patient discharged. Outpatient Attender: LAVELLE RIOS MDConsultant : LAVELLE RIOS MD BF-BF.[facility] 07/08/2020 12:00:00 AM EDT - 07/08/2020 04:07:18 PM EDT [facility] Immunizations Vaccine Date Status Description Data Source(s) COVID-19 VACCINE Moderna 04/29/2021 12:00:00 AM EDT completed [facility] Vaccine Series Complete: YESThis Data wa s Submitted to [facility] Via [employer]. COVID-19 VACCINE Moderna 03/28/2021 12:00:00 AM EDT completed [facility] Vaccine Series Complete: NOThis Data was Submitted to [facility] Via [employer]. Medications Medication Brand Name Start Date Product Form Dose Route Admi nistrative Instructions Pharmacy Instructions Status Indications Reaction Description Data Source(s) Alprazolam 0.25 MG Oral Tablet ALPRAZolam 0.25 MG ALPRAZolam 0.25 MG 09/05/2021 12:00:00 AM EDT 1.0 {tablet} active AL PRAZolam 0.25 MG [facility] Dexamethasone 0.5 MGM/ 5 ML 08/21/2021 12:00:00 AM EDT active MEDENT ([facility], ) 30 ACTUAT fluticasone furoate 0.2 MG/ACTUAT Dry Powder Inhaler [Arnuity] Arnuity Ellipta 08/07/2021 12:00:00 AM EDT RESPIRATORY active MEDENT ([facility], ) 200 ACTUAT Levalbuterol 0.045 MG/ACTUAT Metered Dose I nhaler Levalbuterol Tartrate 08/07/2021 12:00:00 AM EDT ORAL active MEDENT ([facility], ) Bisacodyl 5 MG Delayed Release Oral Tablet [Dulcolax] Dulcol ax 08/06/2021 12:00:00 AM EDT active M EDENT ([facility], ) POLYETHYLENE GLYCOL 3350 105 MG/ML / Pot assium Chloride 0.27300 MEQ/ML / Sodium Bicarbonate 0.017 MEQ/ML / Sodium Chloride 0.0479 MEQ/ML Oral Solution [GaviLyte-N] Gavilyte-N With Flavor Pack 08/06/2021 12:00:00 AM EDT active MEDENT ([facility], ) Clenpiq Clenpiq 08/06/2021 12:00:00 AM EDT active MEDENT ([facility], ) Magnesium Oxide 400 MG Oral Tablet Magnesium Oxide 400 (241.3 Mg) MG Magnesium Oxide 400 (241.3 Mg) MG 08/01/2021 12:00:00 AM EDT 1.0 {tablet_with_f ood} active Magnesium Oxide 400 (241.3 M g) MG [facility] Magnesium Oxide 400 MG Oral Tablet Magnesium Oxide 400 (241.3 Mg) MG Magnesium Oxide 400 (241.3 Mg) MG 08/01/2021 12:00:00 AM EDT 1.0 {tablet_with_f ood} active Magnesium Oxide 400 (241.3 M g) MG [facility]CW1 [facility]) Magnesium Oxide 400 MG Oral Tablet Magnesium Oxide 400 (241.3 Mg) MG Magnesium Oxide 400 (241.3 Mg) MG 08/01/2021 12:00:00 AM EDT 1.0 {tablet_with_f ood} active Magnesium Oxide 400 (241.3 M g) MG eCW1 [facility]) Magnesium Oxide 400 MG Oral Tablet Magnesium Oxide 400 (241.3 Mg) MG Magnesium Oxide 400 (241.3 Mg) MG 08/01/2021 12:00:00 AM EDT 1.0 {tablet_with_f ood} active Magnesium Oxide 400 (241.3 M g) MG eCW1 [facility]) Magnesium Oxide 400 MG Oral Tablet Magnesium Oxide 400 (241.3 Mg) MG Magnesium Oxide 400 (241.3 Mg) MG 08/01/2021 12:00:00 AM EDT 1.0 {tablet_with_f ood} active Magnesium Oxide 400 (241.3 M g) MG W1 ([facility]) Magnesium Oxide 400 MG Oral Tablet Magnesium Oxide 400 (241.3 Mg) MG Magnesium Oxide 400 (241.3 Mg) MG 08/01/2021 12:00:00 AM EDT 1.0 {tablet_with_f ood} active Magnesium Oxide 400 (241.3 M g) MG W1 ([facility]) Magnesium Oxide 400 MG Oral Tablet Magnesium Oxide 400 (241.3 Mg) MG Magnesium Oxide 400 (241.3 Mg) MG 08/01/2021 12:00:00 AM EDT 1.0 {tablet_with_f ood} active Magnesium Oxide 400 (241.3 M g) MG [facility]CW1 [facility]) Acetaminophen 325 MG / Hydrocodone Luis trate 7.5 MG Oral Tablet HYDROcodone- Acetaminophen 7.5-325 MG HYDROcodone-Acetaminophen 7.5-325 MG 07/31/2021 12:00:00 AM EDT 1.0 {tablet_as_needed} active HYDROcodone- Acetaminophen 7.5-325 MG eCW1 ([facility]) Alprazolam 0.25 MG Oral Tablet ALPRAZolam 0.25 MG ALPRAZolam 0.25 MG 07/31/2021 12:00:00 AM EDT 1.0 {tablet} active AL PRAZolam 0.25 MG eCW1 [facility]) Acetaminophen 325 MG / Hydrocodone Luis trate 7.5 MG Oral Tablet HYDROcodone- Acetaminophen 7.5-325 MG HYDROcodone-Acetaminophen 7.5-325 MG 07/31/2021 12:00:00 AM EDT 1.0 {tablet_as_needed} active HYDROcodone- Acetaminophen 7.5-325 MG eCW1 ([facility]) Alprazolam 0.25 MG Oral Tablet ALPRAZolam 0.25 MG ALPRAZolam 0.25 MG 07/31/2021 12:00:00 AM EDT 1.0 {tablet} active AL PRAZolam 0.25 MG eCW1 ([facility]) Alprazolam 0.25 MG Oral Tablet ALPRAZolam 0.25 MG ALPRAZolam 0.25 MG 07/31/2021 12:00:00 AM EDT 1.0 {tablet} active AL PRAZolam 0.25 MG eCW1 ([facility]) Alprazolam 0.25 MG Oral Tablet ALPRAZolam 0.25 MG ALPRAZolam 0.25 MG 07/31/2021 12:00:00 AM EDT 1.0 {tablet} active AL PRAZolam 0.25 MG eCW1 ([facility]) Acetaminophen 325 MG / Hydrocodone Luis trate 7.5 MG Oral Tablet HYDROcodone- Acetaminophen 7.5-325 MG HYDROcodone-Acetaminophen 7.5-325 MG 07/31/2021 12:00:00 AM EDT 1.0 {tablet_as_needed} active HYDROcodone- Acetaminophen 7.5-325 MG eCW1 ([facility]) Alprazolam 0.25 MG Oral Tablet ALPRAZolam 0.25 MG ALPRAZolam 0.25 MG 07/31/2021 12:00:00 AM EDT 1.0 {tablet} active AL PRAZolam 0.25 MG eCW1 ([facility]) Acetaminophen 325 MG / Hydrocodone Luis trate 7.5 MG Oral Tablet HYDROcodone- Acetaminophen 7.5-325 MG HYDROcodone-Acetaminophen 7.5-325 MG 07/31/2021 12:00:00 AM EDT 1.0 {tablet_as_needed} active HYDROcodone- Acetaminophen 7.5-325 MG eCW1 ([facility]) Acetaminophen 325 MG / Hydrocodone Luis trate 7.5 MG Oral Tablet HYDROcodone- Acetaminophen 7.5-325 MG HYDROcodone-Acetaminophen 7.5-325 MG 07/31/2021 12:00:00 AM EDT 1.0 {tablet_as_needed} active HYDROcodone- Acetaminophen 7.5-325 MG eCW1 ([facility]) Acetaminophen 325 MG / Hydrocodone Luis trate 7.5 MG Oral Tablet HYDROcodone- Acetaminophen 7.5-325 MG HYDROcodone-Acetaminophen 7.5-325 MG 07/31/2021 12:00:00 AM EDT 1.0 {tablet_as_needed} active HYDROcodone- Acetaminophen 7.5-325 MG eCW1 ([facility]) Acetaminophen 325 MG / Hydrocodone Luis trate 7.5 MG Oral Tablet HYDROcodone- Acetaminophen 7.5-325 MG HYDROcodone-Acetaminophen 7.5-325 MG 07/31/2021 12:00:00 AM EDT 1.0 {tablet_as_needed} active HYDROcodone- Acetaminophen 7.5-325 MG eCW1 ([facility]) Alprazolam 0.25 MG Oral Tablet ALPRAZolam 0.25 MG ALPRAZolam 0.25 MG 07/31/2021 12:00:00 AM EDT 1.0 {tablet} active AL PRAZolam 0.25 MG eCW1 [facility]) Budesonide 3 MG Delayed Release Oral Capsule Budesonide 07/30/2021 12:00:00 AM EDT ORAL active MEDENT ([facility], ) Sinus Rinse Bottle Kit 07/28/2021 12:00:00 AM EDT active MEDENT ([facility], ) Dexamethasone 0.1 MG/ML Oral Solution Dexamethasone 07/28/2021 12:00:00 AM EDT completed MEDENT ([facility], ) CPAP 07/22/2021 12:00:00 AM EDT active MEDENT ([facility], ) Nystatin 121131 UNT/ML Oral Suspension Nystatin 07/22/2021 12:00:00 AM EDT active MEDENT ([facility], [facility]) Magic Mouth Wash 07/22/2021 12:00:00 AM EDT a ctive MEDENT ([facility], [facility]) cefdinir 300 MG Oral Capsule Cefdinir 07/22/2021 12:00:00 AM EDT ORAL active MEDENT ([facility], [facility]) Docusate Sodium 100 MG Oral Capsule [Colace] Colace 12:00:00 AM EDT active MEDENT ( [facility], ) Acetaminophen 325 MG / Hydrocodone Luis trate 7.5 MG Oral Tablet HYDROcodone- Acetaminophen 7.5-325 MG HYDROcodone-Acetaminophen 7.5-325 MG 07/01/2021 12:00:00 AM EDT 1.0 {tablet_as_needed} active HYDROcodone- Acetaminophen 7.5-325 MG eCW1 ([facility]) Acetaminophen 325 MG / Hydrocodone Luis trate 7.5 MG Oral Tablet HYDROcodone- Acetaminophen 7.5-325 MG HYDROcodone-Acetaminophen 7.5-325 MG 07/01/2021 12:00:00 AM EDT 1.0 {tablet_as_needed} active HYDROcodone- Acetaminophen 7.5-325 MG eCW1 ([facility]) Acetaminophen 325 MG / Hydrocodone Luis trate 7.5 MG Oral Tablet HYDROcodone- Acetaminophen 7.5-325 MG HYDROcodone-Acetaminophen 7.5-325 MG 07/01/2021 12:00:00 AM EDT 1.0 {tablet_as_needed} active HYDROcodone- Acetaminophen 7.5-325 MG eCW1 ([facility]) Acetaminophen 325 MG / Hydrocodone Luis trate 7.5 MG Oral Tablet HYDROcodone- Acetaminophen 7.5-325 MG HYDROcodone-Acetaminophen 7.5-325 MG 07/01/2021 12:00:00 AM EDT 1.0 {tablet_as_needed} active HYDROcodone- Acetaminophen 7.5-325 MG eCW1 ([facility]) Acetaminophen 325 MG / Hydrocodone Luis trate 7.5 MG Oral Tablet HYDROcodone- Acetaminophen 7.5-325 MG HYDROcodone-Acetaminophen 7.5-325 MG 07/01/2021 12:00:00 AM EDT 1.0 {tablet_as_needed} active HYDROcodone- Acetaminophen 7.5-325 MG eCW1 ([facility]) Acetaminophen 325 MG / Hydrocodone Luis trate 7.5 MG Oral Tablet HYDROcodone- Acetaminophen 7.5-325 MG HYDROcodone-Acetaminophen 7.5-325 MG 07/01/2021 12:00:00 AM EDT 1.0 {tablet_as_needed} active HYDROcodone- Acetaminophen 7.5-325 MG eCW1 ([facility]) Acetaminophen 325 MG / Hydrocodone Luis trate 7.5 MG Oral Tablet HYDROcodone- Acetaminophen 7.5-325 MG HYDROcodone-Acetaminophen 7.5-325 MG 07/01/2021 12:00:00 AM EDT 1.0 {tablet_as_needed} active HYDROcodone- Acetaminophen 7.5-325 MG eCW1 ([facility]) Acetaminophen 325 MG / Hydrocodone Luis trate 7.5 MG Oral Tablet HYDROcodone- Acetaminophen 7.5-325 MG HYDROcodone-Acetaminophen 7.5-325 MG 07/01/2021 12:00:00 AM EDT 1.0 {tablet_as_needed} active HYDROcodone- Acetaminophen 7.5-325 MG eCW1 ([facility]) Acetaminophen 325 MG / Hydrocodone Luis trate 7.5 MG Oral Tablet HYDROcodone- Acetaminophen 7.5-325 MG HYDROcodone-Acetaminophen 7.5-325 MG 07/01/2021 12:00:00 AM EDT 1.0 {tablet_as_needed} active HYDROcodone- Acetaminophen 7.5-325 MG eCW1 ([facility]) Alprazolam 0.25 MG Oral Tablet ALPRAZolam 0.25 MG ALPRAZolam 0.25 MG 06/30/2021 12:00:00 AM EDT 1.0 {tablet} active AL PRAZolam 0.25 MG eCW1 ([facility]) Alprazolam 0.25 MG Oral Tablet ALPRAZolam 0.25 MG ALPRAZolam 0.25 MG 06/30/2021 12:00:00 AM EDT 1.0 {tablet} active AL PRAZolam 0.25 MG eCW1 ([facility]) Alprazolam 0.25 MG Oral Tablet ALPRAZolam 0.25 MG ALPRAZolam 0.25 MG 06/30/2021 12:00:00 AM EDT 1.0 {tablet} active AL PRAZolam 0.25 MG eCW1 ([facility]) Alprazolam 0.25 MG Oral Tablet ALPRAZolam 0.25 MG ALPRAZolam 0.25 MG 06/30/2021 12:00:00 AM EDT 1.0 {tablet} active AL PRAZolam 0.25 MG eCW1 ([facility]) Alprazolam 0.25 MG Oral Tablet ALPRAZolam 0.25 MG ALPRAZolam 0.25 MG 06/30/2021 12:00:00 AM EDT 1.0 {tablet} active AL PRAZolam 0.25 MG eCW1 ([facility]) Alprazolam 0.25 MG Oral Tablet ALPRAZolam 0.25 MG ALPRAZolam 0.25 MG 06/30/2021 12:00:00 AM EDT 1.0 {tablet} active AL PRAZolam 0.25 MG eCW1 ([facility]) Alprazolam 0.25 MG Oral Tablet ALPRAZolam 0.25 MG ALPRAZolam 0.25 MG 06/30/2021 12:00:00 AM EDT 1.0 {tablet} active AL PRAZolam 0.25 MG eCW1 ([facility]) Alprazolam 0.25 MG Oral Tablet ALPRAZolam 0.25 MG ALPRAZolam 0.25 MG 06/30/2021 12:00:00 AM EDT 1.0 {tablet} active AL PRAZolam 0.25 MG eCW1 ([facility]) Alprazolam 0.25 MG Oral Tablet ALPRAZolam 0.25 MG ALPRAZolam 0.25 MG 06/30/2021 12:00:00 AM EDT 1.0 {tablet} active AL PRAZolam 0.25 MG eCW1 ([facility]) Alprazolam 0.25 MG Oral Tablet ALPRAZolam 0.25 MG ALPRAZolam 0.25 MG 06/30/2021 12:00:00 AM EDT 1.0 {tablet} active AL PRAZolam 0.25 MG eCW1 ([facility]) Acetaminophen 325 MG / Hydrocodone Luis trate 7.5 MG Oral Tablet HYDROcodone- Acetaminophen 7.5-325 MG HYDROcodone-Acetaminophen 7.5-325 MG 06/25/2021 12:00:00 AM EDT 1.0 {tablet_as_needed} active HYDROcodone- Acetaminophen 7.5-325 MG eCW1 ([facility]) Acetaminophen 325 MG / Hydrocodone Luis trate 7.5 MG Oral Tablet HYDROcodone- Acetaminophen 7.5-325 MG HYDROcodone-Acetaminophen 7.5-325 MG 06/25/2021 12:00:00 AM EDT 1.0 {tablet_as_needed} active HYDROcodone- Acetaminophen 7.5-325 MG eCW1 ([facility]) Acetaminophen 325 MG / Hydrocodone Luis trate 7.5 MG Oral Tablet HYDROcodone- Acetaminophen 7.5-325 MG HYDROcodone-Acetaminophen 7.5-325 MG 06/09/2021 12:00:00 AM EDT 1.0 {tablet_as_needed} active HYDROcodone- Acetaminophen 7.5-325 MG eCW1 ([facility]) Acetaminophen 325 MG / Hydrocodone Luis trate 7.5 MG Oral Tablet HYDROcodone- Acetaminophen 7.5-325 MG HYDROcodone-Acetaminophen 7.5-325 MG 06/09/2021 12:00:00 AM EDT 1.0 {tablet_as_needed} active HYDROcodone- Acetaminophen 7.5-325 MG eCW1 ([facility]) Acetaminophen 325 MG / Hydrocodone Luis trate 7.5 MG Oral Tablet HYDROcodone- Acetaminophen 7.5-325 MG HYDROcodone-Acetaminophen 7.5-325 MG 06/09/2021 12:00:00 AM EDT 1.0 {tablet_as_needed} active HYDROcodone- Acetaminophen 7.5-325 MG eCW1 ([facility]) Acetaminophen 325 MG / Hydrocodone Luis trate 7.5 MG Oral Tablet HYDROcodone- Acetaminophen 7.5-325 MG HYDROcodone-Acetaminophen 7.5-325 MG 06/09/2021 12:00:00 AM EDT 1.0 {tablet_as_needed} active HYDROcodone- Acetaminophen 7.5-325 MG eCW1 ([facility]) Acetaminophen 325 MG / Hydrocodone Luis trate 7.5 MG Oral Tablet HYDROcodone- Acetaminophen 7.5-325 MG HYDROcodone-Acetaminophen 7.5-325 MG 06/09/2021 12:00:00 AM EDT 1.0 {tablet_as_needed} active eCW1 ([facility]) hydrocortisone acetate 25 MG Rectal Suppository Hydroc ortisone Acetate 25 MG Hydrocortisone Acetate 25 MG 05/22/2021 12:00:00 AM EDT 1.0 {supposit ory} active Hydrocortisone Acetate 25 MG eCW1 ([facility]) hydrocortisone acetate 25 MG Rectal Suppository Hydroc ortisone Acetate 25 MG Hydrocortisone Acetate 25 MG 05/22/2021 12:00:00 AM EDT 1.0 {supposit ory} active Hydrocortisone Acetate 25 MG eCW1 ([facility]) hydrocortisone acetate 25 MG Rectal Suppository Hydroc ortisone Acetate 25 MG Hydrocortisone Acetate 25 MG 05/22/2021 12:00:00 AM EDT 1.0 {supposit ory} active Hydrocortisone Acetate 25 MG eCW1 ([facility]) hydrocortisone acetate 25 MG Rectal Suppository Hydroc ortisone Acetate 25 MG Hydrocortisone Acetate 25 MG 05/22/2021 12:00:00 AM EDT 1.0 {supposit ory} active Hydrocortisone Acetate 25 MG eCW1 ([facility]) hydrocortisone acetate 25 MG Rectal Suppository Hydroc ortisone Acetate 25 MG Hydrocortisone Acetate 25 MG 05/22/2021 12:00:00 AM EDT 1.0 {supposit ory} active Hydrocortisone Acetate 25 MG eCW1 ([facility]) hydrocortisone acetate 25 MG Rectal Suppository Hydroc ortisone Acetate 25 MG Hydrocortisone Acetate 25 MG 05/22/2021 12:00:00 AM EDT 1.0 {supposit ory} active Hydrocortisone Acetate 25 MG eCW1 ([facility]) hydrocortisone acetate 25 MG Rectal Suppository Hydroc ortisone Acetate 25 MG Hydrocortisone Acetate 25 MG 05/22/2021 12:00:00 AM EDT 1.0 {supposit ory} active Hydrocortisone Acetate 25 MG eCW1 ([facility]) hydrocortisone acetate 25 MG Rectal Suppository Hydroc ortisone Acetate 25 MG Hydrocortisone Acetate 25 MG 05/22/2021 12:00:00 AM EDT 1.0 {supposit ory} active Hydrocortisone Acetate 25 MG eCW1 ([facility]) hydrocortisone acetate 25 MG Rectal Suppository Hydroc ortisone Acetate 25 MG Hydrocortisone Acetate 25 MG 05/22/2021 12:00:00 AM EDT 1.0 {supposit ory} active Hydrocortisone Acetate 25 MG eCW1 ([facility]) hydrocortisone acetate 25 MG Rectal Suppository Hydroc ortisone Acetate 25 MG Hydrocortisone Acetate 25 MG 05/22/2021 12:00:00 AM EDT 1.0 {supposit ory} active Hydrocortisone Acetate 25 MG eCW1 ([facility]) hydrocortisone acetate 25 MG Rectal Suppository Hydroc ortisone Acetate 25 MG Hydrocortisone Acetate 25 MG 05/22/2021 12:00:00 AM EDT 1.0 {supposit ory} active Hydrocortisone Acetate 25 MG eCW1 ([facility]) hydrocortisone acetate 25 MG Rectal Suppository Hydroc ortisone Acetate 25 MG Hydrocortisone Acetate 25 MG 05/22/2021 12:00:00 AM EDT 1.0 {supposit ory} active Hydrocortisone Acetate 25 MG eCW1 ([facility]) hydrocortisone acetate 25 MG Rectal Suppository Hydroc ortisone Acetate 25 MG Hydrocortisone Acetate 25 MG 05/22/2021 12:00:00 AM EDT 1.0 {supposit ory} active Hydrocortisone Acetate 25 MG eCW1 ([facility]) hydrocortisone acetate 25 MG Rectal Suppository Hydroc ortisone Acetate 25 MG Hydrocortisone Acetate 25 MG 05/22/2021 12:00:00 AM EDT 1.0 {supposit ory} active Hydrocortisone Acetate 25 MG eCW1 ([facility]) hydrocortisone acetate 25 MG Rectal Suppository Hydroc ortisone Acetate 25 MG Hydrocortisone Acetate 25 MG 05/22/2021 12:00:00 AM EDT 1.0 {supposit ory} active Hydrocortisone Acetate 25 MG eCW1 ([facility]) hydrocortisone acetate 25 MG Rectal Suppository Hydroc ortisone Acetate 25 MG Hydrocortisone Acetate 25 MG 05/22/2021 12:00:00 AM EDT 1.0 {supposit ory} active Hydrocortisone Acetate 25 MG eCW1 ([facility]) hydrocortisone acetate 25 MG Rectal Suppository Hydroc ortisone Acetate 25 MG Hydrocortisone Acetate 25 MG 05/22/2021 12:00:00 AM EDT 1.0 {supposit ory} active Hydrocortisone Acetate 25 MG eCW1 ([facility]) hydrocortisone acetate 25 MG Rectal Suppository Hydroc ortisone Acetate 25 MG Hydrocortisone Acetate 25 MG 05/22/2021 12:00:00 AM EDT 1.0 {supposit ory} active Hydrocortisone Acetate 25 MG eCW1 ([facility]) hydrocortisone acetate 25 MG Rectal Suppository Hydroc ortisone Acetate 25 MG Hydrocortisone Acetate 25 MG 05/22/2021 12:00:00 AM EDT 1.0 {supposit ory} active eCW1 ([facility]) hydrocortisone acetate 25 MG Rectal Suppository Hydroc ortisone Acetate 25 MG Hydrocortisone Acetate 25 MG 05/22/2021 12:00:00 AM EDT 1.0 {supposit ory} active Hydrocortisone Acetate 25 MG eCW1 ([facility]) hydrocortisone acetate 25 MG Rectal Suppository Hydroc ortisone Acetate 25 MG Hydrocortisone Acetate 25 MG 05/22/2021 12:00:00 AM EDT 1.0 {supposit ory} active Hydrocortisone Acetate 25 MG eCW1 ([facility]) hydrocortisone acetate 25 MG Rectal Suppository Hydroc ortisone Acetate 25 MG Hydrocortisone Acetate 25 MG 05/22/2021 12:00:00 AM EDT 1.0 {supposit ory} active Hydrocortisone Acetate 25 MG eCW1 ([facility]) hydrocortisone acetate 25 MG Rectal Suppository Hydroc ortisone Acetate 25 MG Hydrocortisone Acetate 25 MG 05/22/2021 12:00:00 AM EDT 1.0 {supposit ory} active Hydrocortisone Acetate 25 MG eCW1 ([facility]) hydrocortisone acetate 25 MG Rectal Suppository Hydroc ortisone Acetate 25 MG Hydrocortisone Acetate 25 MG 05/22/2021 12:00:00 AM EDT 1.0 {supposit ory} active Hydrocortisone Acetate 25 MG eCW1 ([facility]) hydrocortisone acetate 25 MG Rectal Suppository Hydroc ortisone Acetate 25 MG Hydrocortisone Acetate 25 MG 05/22/2021 12:00:00 AM EDT 1.0 {supposit ory} active Hydrocortisone Acetate 25 MG eCW1 ([facility]) hydrocortisone acetate 25 MG Rectal Suppository Hydroc ortisone Acetate 25 MG Hydrocortisone Acetate 25 MG 05/22/2021 12:00:00 AM EDT 1.0 {supposit ory} active Hydrocortisone Acetate 25 MG eCW1 ([facility]) hydrocortisone acetate 25 MG Rectal Suppository Hydroc ortisone Acetate 25 MG Hydrocortisone Acetate 25 MG 05/22/2021 12:00:00 AM EDT 1.0 {supposit ory} active Hydrocortisone Acetate 25 MG eCW1 ([facility]) hydrocortisone acetate 25 MG Rectal Suppository Hydroc ortisone Acetate 25 MG Hydrocortisone Acetate 25 MG 05/22/2021 12:00:00 AM EDT 1.0 {supposit ory} active Hydrocortisone Acetate 25 MG eCW1 ([facility]) hydrocortisone acetate 25 MG Rectal Suppository Hydroc ortisone Acetate 25 MG Hydrocortisone Acetate 25 MG 05/22/2021 12:00:00 AM EDT 1.0 {supposit ory} active Hydrocortisone Acetate 25 MG eCW1 ([facility]) hydrocortisone acetate 25 MG Rectal Suppository Hydroc ortisone Acetate 25 MG Hydrocortisone Acetate 25 MG 05/22/2021 12:00:00 AM EDT 1.0 {supposit ory} active Hydrocortisone Acetate 25 MG eCW1 ([facility]) hydrocortisone acetate 25 MG Rectal Suppository Hydroc ortisone Acetate 25 MG Hydrocortisone Acetate 25 MG 05/22/2021 12:00:00 AM EDT 1.0 {supposit ory} active Hydrocortisone Acetate 25 MG eCW1 ([facility]) hydrocortisone acetate 25 MG Rectal Suppository Hydroc ortisone Acetate 25 MG Hydrocortisone Acetate 25 MG 05/22/2021 12:00:00 AM EDT 1.0 {supposit ory} active Hydrocortisone Acetate 25 MG eCW1 ([facility]) hydrocortisone acetate 25 MG Rectal Suppository Hydroc ortisone Acetate 25 MG Hydrocortisone Acetate 25 MG 05/22/2021 12:00:00 AM EDT 1.0 {supposit ory} active Hydrocortisone Acetate 25 MG eCW1 ([facility]) hydrocortisone acetate 25 MG Rectal Suppository Hydroc ortisone Acetate 25 MG Hydrocortisone Acetate 25 MG 05/22/2021 12:00:00 AM EDT 1.0 {supposit ory} active Hydrocortisone Acetate 25 MG eCW1 ([facility]) hydrocortisone acetate 25 MG Rectal Suppository Hydroc ortisone Acetate 25 MG Hydrocortisone Acetate 25 MG 05/22/2021 12:00:00 AM EDT 1.0 {supposit ory} active Hydrocortisone Acetate 25 MG eCW1 ([facility]) hydrocortisone acetate 25 MG Rectal Suppository Hydroc ortisone Acetate 25 MG Hydrocortisone Acetate 25 MG 05/22/2021 12:00:00 AM EDT 1.0 {supposit ory} active Hydrocortisone Acetate 25 MG eCW1 ([facility]) 3 ml syringe 25 gauge UNK 05/16/2021 12:00:00 AM EDT active 3 ml syringe 25 gauge eCW1 ([facility]) Mouthwashes - UNK 05/16/2021 12:00:00 AM EDT suspended Mouthwashes - eCW1 ([facility]) Cyanocobalamin 1000 MCG/ML UNK 05/16/2021 12:00:00 AM EDT 1. 0 {ml} active Cyanocobalamin 1000 MCG/ML eCW1 ([facility]) 3 ml syringe 25 gauge UNK 05/16/2021 12:00:00 AM EDT active 3 ml syringe 25 gauge eCW1 ([facility]) 3 ml syringe 25 gauge UNK 05/16/2021 12:00:00 AM EDT active 3 ml syringe 25 gauge eCW1 ([facility]) Mouthwashes - UNK 05/16/2021 12:00:00 AM EDT acti ve Mouthwashes - eCW1 ([facility]) 3 ml syringe 25 gauge UNK 05/16/2021 12:00:00 AM EDT active 3 ml syringe 25 gauge eCW1 ([facility]) Mouthwashes - UNK 05/16/2021 12:00:00 AM EDT suspended Mouthwashes - eCW1 ([facility]) Mouthwashes - UNK 05/16/2021 12:00:00 AM EDT acti ve Mouthwashes - eCW1 ([facility]) Mouthwashes - UNK 05/16/2021 12:00:00 AM EDT acti ve Mouthwashes - eCW1 ([facility]) 3 ml syringe 25 gauge UNK 05/16/2021 12:00:00 AM EDT active 3 ml syringe 25 gauge eCW1 ([facility]) 3 ml syringe 25 gauge UNK 05/16/2021 12:00:00 AM EDT active 3 ml syringe 25 gauge eCW1 ([facility]) Cyanocobalamin 1000 MCG/ML UNK 05/16/2021 12:00:00 AM EDT 1. 0 {ml} active Cyanocobalamin 1000 MCG/ML eCW1 ([facility]) Mouthwashes - UNK 05/16/2021 12:00:00 AM EDT acti ve Mouthwashes - eCW1 ([facility]) Cyanocobalamin 1000 MCG/ML UNK 05/16/2021 12:00:00 AM EDT 1. 0 {ml} active Cyanocobalamin 1000 MCG/ML eCW1 ([facility]) 3 ml syringe 25 gauge UNK 05/16/2021 12:00:00 AM EDT active 3 ml syringe 25 gauge eCW1 ([facility]) 3 ml syringe 25 gauge UNK 05/16/2021 12:00:00 AM EDT active 3 ml syringe 25 gauge eCW1 ([facility]) 3 ml syringe 25 gauge UNK 05/16/2021 12:00:00 AM EDT active 3 ml syringe 25 gauge eCW1 ([facility]) 3 ml syringe 25 gauge UNK 05/16/2021 12:00:00 AM EDT active 3 ml syringe 25 gauge eCW1 ([facility]) Cyanocobalamin 1000 MCG/ML UNK 05/16/2021 12:00:00 AM EDT 1. 0 {ml} active Cyanocobalamin 1000 MCG/ML eCW1 ([facility]) Cyanocobalamin 1000 MCG/ML UNK 05/16/2021 12:00:00 AM EDT 1. 0 {ml} active Cyanocobalamin 1000 MCG/ML eCW1 ([facility]) 3 ml syringe 25 gauge UNK 05/16/2021 12:00:00 AM EDT active 3 ml syringe 25 gauge eCW1 ([facility]) Mouthwashes - UNK 05/16/2021 12:00:00 AM EDT acti ve Mouthwashes - eCW1 ([facility]) Cyanocobalamin 1000 MCG/ML UNK 05/16/2021 12:00:00 AM EDT 1. 0 {ml} active Cyanocobalamin 1000 MCG/ML eCW1 ([facility]) Cyanocobalamin 1000 MCG/ML UNK 05/16/2021 12:00:00 AM EDT 1. 0 {ml} active Cyanocobalamin 1000 MCG/ML eCW1 ([facility]) Mouthwashes - UNK 05/16/2021 12:00:00 AM EDT acti ve Mouthwashes - eCW1 ([facility]) Cyanocobalamin 1000 MCG/ML UNK 05/16/2021 12:00:00 AM EDT 1. 0 {ml} active Cyanocobalamin 1000 MCG/ML eCW1 ([facility]) Cyanocobalamin 1000 MCG/ML UNK 05/16/2021 12:00:00 AM EDT 1. 0 {ml} active Cyanocobalamin 1000 MCG/ML eCW1 ([facility]) Mouthwashes - UNK 05/16/2021 12:00:00 AM EDT suspended Mouthwashes - eCW1 ([facility]) 3 ml syringe 25 gauge UNK 05/16/2021 12:00:00 AM EDT active 3 ml syringe 25 gauge eCW1 ([facility]) Mouthwashes - UNK 05/16/2021 12:00:00 AM EDT suspended Mouthwashes - eCW1 ([facility]) Mouthwashes - UNK 05/16/2021 12:00:00 AM EDT acti ve Mouthwashes - eCW1 ([facility]) Mouthwashes - UNK 05/16/2021 12:00:00 AM EDT acti ve Mouthwashes - eCW1 ([facility]) 3 ml syringe 25 gauge UNK 05/16/2021 12:00:00 AM EDT active 3 ml syringe 25 gauge eCW1 ([facility]) Cyanocobalamin 1000 MCG/ML UNK 05/16/2021 12:00:00 AM EDT 1. 0 {ml} active Cyanocobalamin 1000 MCG/ML eCW1 ([facility]) 3 ml syringe 25 gauge UNK 05/16/2021 12:00:00 AM EDT active 3 ml syringe 25 gauge eCW1 ([facility]) Cyanocobalamin 1000 MCG/ML UNK 05/16/2021 12:00:00 AM EDT 1. 0 {ml} active Cyanocobalamin 1000 MCG/ML eCW1 ([facility]) Cyanocobalamin 1000 MCG/ML UNK 05/16/2021 12:00:00 AM EDT 1. 0 {ml} active Cyanocobalamin 1000 MCG/ML eCW1 ([facility]) Cyanocobalamin 1000 MCG/ML UNK 05/16/2021 12:00:00 AM EDT 1. 0 {ml} active Cyanocobalamin 1000 MCG/ML eCW1 ([facility]) 3 ml syringe 25 gauge UNK 05/16/2021 12:00:00 AM EDT active 3 ml syringe 25 gauge eCW1 ([facility]) Mouthwashes - UNK 05/16/2021 12:00:00 AM EDT acti ve Mouthwashes - eCW1 ([facility]) Mouthwashes - UNK 05/16/2021 12:00:00 AM EDT acti ve Mouthwashes - eCW1 ([facility]) 3 ml syringe 25 gauge UNK 05/16/2021 12:00:00 AM EDT active 3 ml syringe 25 gauge eCW1 ([facility]) Cyanocobalamin 1000 MCG/ML UNK 05/16/2021 12:00:00 AM EDT 1. 0 {ml} active Cyanocobalamin 1000 MCG/ML eCW1 ([facility]) Mouthwashes - UNK 05/16/2021 12:00:00 AM EDT acti ve Mouthwashes - eCW1 ([facility]) 3 ml syringe 25 gauge UNK 05/16/2021 12:00:00 AM EDT active 3 ml syringe 25 gauge eCW1 ([facility]) Cyanocobalamin 1000 MCG/ML UNK 05/16/2021 12:00:00 AM EDT 1. 0 {ml} active Cyanocobalamin 1000 MCG/ML eCW1 ([facility]) Mouthwashes - UNK 05/16/2021 12:00:00 AM EDT acti ve Mouthwashes - eCW1 ([facility]) Mouthwashes - UNK 05/16/2021 12:00:00 AM EDT acti ve eCW1 ([facility]) Cyanocobalamin 1000 MCG/ML UNK 05/16/2021 12:00:00 AM EDT 1. 0 {ml} active Cyanocobalamin 1000 MCG/ML eCW1 ([facility]) Cyanocobalamin 1000 MCG/ML UNK 05/16/2021 12:00:00 AM EDT 1. 0 {ml} active Cyanocobalamin 1000 MCG/ML eCW1 ([facility]) 3 ml syringe 25 gauge UNK 05/16/2021 12:00:00 AM EDT active 3 ml syringe 25 gauge eCW1 ([facility]) Cyanocobalamin 1000 MCG/ML UNK 05/16/2021 12:00:00 AM EDT 1. 0 {ml} active Cyanocobalamin 1000 MCG/ML eCW1 ([facility]) Mouthwashes - UNK 05/16/2021 12:00:00 AM EDT acti ve Mouthwashes - eCW1 ([facility]) 3 ml syringe 25 gauge UNK 05/16/2021 12:00:00 AM EDT active 3 ml syringe 25 gauge eCW1 ([facility]) 3 ml syringe 25 gauge UNK 05/16/2021 12:00:00 AM EDT active 3 ml syringe 25 gauge eCW1 ([facility]) 3 ml syringe 25 gauge UNK 05/16/2021 12:00:00 AM EDT active 3 ml syringe 25 gauge eCW1 ([facility]) Cyanocobalamin 1000 MCG/ML UNK 05/16/2021 12:00:00 AM EDT 1. 0 {ml} active Cyanocobalamin 1000 MCG/ML eCW1 ([facility]) Mouthwashes - UNK 05/16/2021 12:00:00 AM EDT acti ve Mouthwashes - eCW1 ([facility]) Cyanocobalamin 1000 MCG/ML UNK 05/16/2021 12:00:00 AM EDT 1. 0 {ml} active Cyanocobalamin 1000 MCG/ML eCW1 ([facility]) 3 ml syringe 25 gauge UNK 05/16/2021 12:00:00 AM EDT active 3 ml syringe 25 gauge eCW1 ([facility]) Cyanocobalamin 1000 MCG/ML UNK 05/16/2021 12:00:00 AM EDT 1. 0 {ml} active Cyanocobalamin 1000 MCG/ML eCW1 ([facility]) Cyanocobalamin 1000 MCG/ML UNK 05/16/2021 12:00:00 AM EDT 1. 0 {ml} active Cyanocobalamin 1000 MCG/ML eCW1 ([facility]) 3 ml syringe 25 gauge UNK 05/16/2021 12:00:00 AM EDT active 3 ml syringe 25 gauge eCW1 ([facility]) 3 ml syringe 25 gauge UNK 05/16/2021 12:00:00 AM EDT active 3 ml syringe 25 gauge eCW1 ([facility]) Mouthwashes - UNK 05/16/2021 12:00:00 AM EDT acti ve Mouthwashes - eCW1 ([facility]) Mouthwashes - UNK 05/16/2021 12:00:00 AM EDT acti ve Mouthwashes - eCW1 ([facility]) Cyanocobalamin 1000 MCG/ML UNK 05/16/2021 12:00:00 AM EDT 1. 0 {ml} active Cyanocobalamin 1000 MCG/ML eCW1 ([facility]) Mouthwashes - UNK 05/16/2021 12:00:00 AM EDT acti ve Mouthwashes - eCW1 ([facility]) Cyanocobalamin 1000 MCG/ML UNK 05/16/2021 12:00:00 AM EDT 1. 0 {ml} active eCW1 ([facility]) Mouthwashes - UNK 05/16/2021 12:00:00 AM EDT acti ve Mouthwashes - eCW1 ([facility]) Mouthwashes - UNK 05/16/2021 12:00:00 AM EDT acti ve Mouthwashes - eCW1 ([facility]) 3 ml syringe 25 gauge UNK 05/16/2021 12:00:00 AM EDT active 3 ml syringe 25 gauge eCW1 ([facility]) Cyanocobalamin 1000 MCG/ML UNK 05/16/2021 12:00:00 AM EDT 1. 0 {ml} active Cyanocobalamin 1000 MCG/ML eCW1 ([facility]) Mouthwashes - UNK 05/16/2021 12:00:00 AM EDT acti ve Mouthwashes - eCW1 ([facility]) 3 ml syringe 25 gauge UNK 05/16/2021 12:00:00 AM EDT active 3 ml syringe 25 gauge eCW1 ([facility]) 3 ml syringe 25 gauge UNK 05/16/2021 12:00:00 AM EDT active eCW1 ([facility]) Mouthwashes - UNK 05/16/2021 12:00:00 AM EDT acti ve Mouthwashes - eCW1 ([facility]) 3 ml syringe 25 gauge UNK 05/16/2021 12:00:00 AM EDT active 3 ml syringe 25 gauge eCW1 ([facility]) 3 ml syringe 25 gauge UNK 05/16/2021 12:00:00 AM EDT active 3 ml syringe 25 gauge eCW1 ([facility]) Mouthwashes - UNK 05/16/2021 12:00:00 AM EDT acti ve Mouthwashes - eCW1 ([facility]) Mouthwashes - UNK 05/16/2021 12:00:00 AM EDT acti ve Mouthwashes - eCW1 ([facility]) Cyanocobalamin 1000 MCG/ML UNK 05/16/2021 12:00:00 AM EDT 1. 0 {ml} active Cyanocobalamin 1000 MCG/ML eCW1 ([facility]) Mouthwashes - UNK 05/16/2021 12:00:00 AM EDT acti ve Mouthwashes - eCW1 ([facility]) Cyanocobalamin 1000 MCG/ML UNK 05/16/2021 12:00:00 AM EDT 1. 0 {ml} active Cyanocobalamin 1000 MCG/ML eCW1 ([facility]) Mouthwashes - UNK 05/16/2021 12:00:00 AM EDT acti ve Mouthwashes - eCW1 ([facility]) Mouthwashes - UNK 05/16/2021 12:00:00 AM EDT suspended Mouthwashes - eCW1 ([facility]) Cyanocobalamin 1000 MCG/ML UNK 05/16/2021 12:00:00 AM EDT 1. 0 {ml} active Cyanocobalamin 1000 MCG/ML eCW1 ([facility]) Mouthwashes - UNK 05/16/2021 12:00:00 AM EDT acti ve Mouthwashes - eCW1 ([facility]) 3 ml syringe 25 gauge UNK 05/16/2021 12:00:00 AM EDT active 3 ml syringe 25 gauge eCW1 ([facility]) 3 ml syringe 25 gauge UNK 05/16/2021 12:00:00 AM EDT active 3 ml syringe 25 gauge eCW1 ([facility]) Cyanocobalamin 1000 MCG/ML UNK 05/16/2021 12:00:00 AM EDT 1. 0 {ml} active Cyanocobalamin 1000 MCG/ML eCW1 ([facility]) Mouthwashes - UNK 05/16/2021 12:00:00 AM EDT acti ve Mouthwashes - eCW1 ([facility]) Cyanocobalamin 1000 MCG/ML UNK 05/16/2021 12:00:00 AM EDT 1. 0 {ml} active Cyanocobalamin 1000 MCG/ML eCW1 ([facility]) Cyanocobalamin 1000 MCG/ML UNK 05/16/2021 12:00:00 AM EDT 1. 0 {ml} active Cyanocobalamin 1000 MCG/ML eCW1 ([facility]) Mouthwashes - UNK 05/16/2021 12:00:00 AM EDT acti ve Mouthwashes - eCW1 ([facility]) 3 ml syringe 25 gauge UNK 05/16/2021 12:00:00 AM EDT active 3 ml syringe 25 gauge eCW1 ([facility]) Mouthwashes - UNK 05/16/2021 12:00:00 AM EDT suspended Mouthwashes - eCW1 ([facility]) 3 ml syringe 25 gauge UNK 05/16/2021 12:00:00 AM EDT active 3 ml syringe 25 gauge eCW1 ([facility]) 3 ml syringe 25 gauge UNK 05/16/2021 12:00:00 AM EDT active 3 ml syringe 25 gauge eCW1 ([facility]) Mouthwashes - UNK 05/16/2021 12:00:00 AM EDT acti ve Mouthwashes - eCW1 ([facility]) Cyanocobalamin 1000 MCG/ML UNK 05/16/2021 12:00:00 AM EDT 1. 0 {ml} active Cyanocobalamin 1000 MCG/ML eCW1 ([facility]) Cyanocobalamin 1000 MCG/ML UNK 05/16/2021 12:00:00 AM EDT 1. 0 {ml} active Cyanocobalamin 1000 MCG/ML eCW1 ([facility]) 3 ml syringe 25 gauge UNK 05/16/2021 12:00:00 AM EDT active 3 ml syringe 25 gauge eCW1 ([facility]) Cyanocobalamin 1000 MCG/ML UNK 05/16/2021 12:00:00 AM EDT 1. 0 {ml} active Cyanocobalamin 1000 MCG/ML eCW1 ([facility]) Cyanocobalamin 1000 MCG/ML UNK 05/16/2021 12:00:00 AM EDT 1. 0 {ml} active Cyanocobalamin 1000 MCG/ML eCW1 ([facility]) Mouthwashes - UNK 05/16/2021 12:00:00 AM EDT acti ve [facility] Mouthwashes - UNK 05/16/2021 12:00:00 AM EDT acti ve Mouthwashes - eCW1 ([facility]) Cyanocobalamin 1000 MCG/ML UNK 05/16/2021 12:00:00 AM EDT 1. 0 {ml} active Cyanocobalamin 1000 MCG/ML eCW1 [facility]) Cyanocobalamin 1000 MCG/ML UNK 05/16/2021 12:00:00 AM EDT 1. 0 {ml} active Cyanocobalamin 1000 MCG/ML eCW1 ([facility]) 3 ml syringe 25 gauge UNK 05/16/2021 12:00:00 AM EDT active 3 ml syringe 25 gauge eCW1 ([facility]) Mouthwashes - UNK 05/16/2021 12:00:00 AM EDT acti ve Mouthwashes - eCW1 ([facility]) 3 ml syringe 25 gauge UNK 05/16/2021 12:00:00 AM EDT active 3 ml syringe 25 gauge eCW1 ([facility]) Cyanocobalamin 1000 MCG/ML UNK 05/16/2021 12:00:00 AM EDT 1. 0 {ml} active Cyanocobalamin 1000 MCG/ML eCW1 ([facility]) 3 ml syringe 25 gauge UNK 05/16/2021 12:00:00 AM EDT active 3 ml syringe 25 gauge eCW1 ([facility]) Cyanocobalamin 1000 MCG/ML UNK 05/16/2021 12:00:00 AM EDT 1. 0 {ml} active Cyanocobalamin 1000 MCG/ML eCW1 ([facility]) 3 ml syringe 25 gauge UNK 05/16/2021 12:00:00 AM EDT active 3 ml syringe 25 gauge eCW1 ([facility]) 0.5 ML ustekinumab 90 MG/ML Prefilled Syringe [Stelara ] Stelara 45 MG/0.5ML Stelara 45 MG/0.5ML 05/13/2021 12:00:00 AM EDT active Stelara 45 MG/0.5ML eCW1 ([facility]) 0.5 ML ustekinumab 90 MG/ML Prefilled Syringe [Stelara ] Stelara 45 MG/0.5ML Stelara 45 MG/0.5ML 05/13/2021 12:00:00 AM EDT active Stelara 45 MG/0.5ML eCW1 ([facility]) 0.5 ML ustekinumab 90 MG/ML Prefilled Syringe [Stelara ] Stelara 45 MG/0.5ML Stelara 45 MG/0.5ML 05/13/2021 12:00:00 AM EDT active Stelara 45 MG/0.5ML eCW1 ([facility]) Alprazolam 0.25 MG Oral Tablet ALPRAZolam 0.25 MG ALPRAZolam 0.25 MG 05/13/2021 12:00:00 AM EDT 1.0 {tablet} active AL PRAZolam 0.25 MG eCW1 ([facility]) Alprazolam 0.25 MG Oral Tablet ALPRAZolam 0.25 MG ALPRAZolam 0.25 MG 05/13/2021 12:00:00 AM EDT 1.0 {tablet} active AL PRAZolam 0.25 MG eCW1 ([facility]) 0.5 ML ustekinumab 90 MG/ML Prefilled Syringe [Stelara ] Stelara 45 MG/0.5ML Stelara 45 MG/0.5ML 05/13/2021 12:00:00 AM EDT active Stelara 45 MG/0.5ML eCW1 ([facility]) 0.5 ML ustekinumab 90 MG/ML Prefilled Syringe [Stelara ] Stelara 45 MG/0.5ML Stelara 45 MG/0.5ML 05/13/2021 12:00:00 AM EDT active Stelara 45 MG/0.5ML eCW1 ([facility]) Alprazolam 0.25 MG Oral Tablet ALPRAZolam 0.25 MG ALPRAZolam 0.25 MG 05/13/2021 12:00:00 AM EDT 1.0 {tablet} active AL PRAZolam 0.25 MG eCW1 ([facility]) 0.5 ML ustekinumab 90 MG/ML Prefilled Syringe [Stelara ] Stelara 45 MG/0.5ML Stelara 45 MG/0.5ML 05/13/2021 12:00:00 AM EDT active Stelara 45 MG/0.5ML eCW1 ([facility]) 0.5 ML ustekinumab 90 MG/ML Prefilled Syringe [Stelara ] Stelara 45 MG/0.5ML Stelara 45 MG/0.5ML 05/13/2021 12:00:00 AM EDT active Stelara 45 MG/0.5ML eCW1 ([facility]) Alprazolam 0.25 MG Oral Tablet ALPRAZolam 0.25 MG ALPRAZolam 0.25 MG 05/13/2021 12:00:00 AM EDT 1.0 {tablet} active AL PRAZolam 0.25 MG eCW1 ([facility]) 0.5 ML ustekinumab 90 MG/ML Prefilled Syringe [Stelara ] Stelara 45 MG/0.5ML Stelara 45 MG/0.5ML 05/13/2021 12:00:00 AM EDT active Stelara 45 MG/0.5ML eCW1 ([facility]) Alprazolam 0.25 MG Oral Tablet ALPRAZolam 0.25 MG ALPRAZolam 0.25 MG 05/13/2021 12:00:00 AM EDT 1.0 {tablet} active AL PRAZolam 0.25 MG eCW1 ([facility]) Alprazolam 0.25 MG Oral Tablet ALPRAZolam 0.25 MG ALPRAZolam 0.25 MG 05/13/2021 12:00:00 AM EDT 1.0 {tablet} active AL PRAZolam 0.25 MG eCW1 ([facility]) 0.5 ML ustekinumab 90 MG/ML Prefilled Syringe [Stelara ] Stelara 45 MG/0.5ML Stelara 45 MG/0.5ML 05/13/2021 12:00:00 AM EDT active Stelara 45 MG/0.5ML eCW1 ([facility]) Alprazolam 0.25 MG Oral Tablet ALPRAZolam 0.25 MG ALPRAZolam 0.25 MG 05/13/2021 12:00:00 AM EDT 1.0 {tablet} active AL PRAZolam 0.25 MG eCW1 ([facility]) Alprazolam 0.25 MG Oral Tablet ALPRAZolam 0.25 MG ALPRAZolam 0.25 MG 05/13/2021 12:00:00 AM EDT 1.0 {tablet} active AL PRAZolam 0.25 MG eCW1 ([facility]) Alprazolam 0.25 MG Oral Tablet ALPRAZolam 0.25 MG ALPRAZolam 0.25 MG 05/13/2021 12:00:00 AM EDT 1.0 {tablet} active AL PRAZolam 0.25 MG eCW1 ([facility]) Alprazolam 0.25 MG Oral Tablet ALPRAZolam 0.25 MG ALPRAZolam 0.25 MG 05/13/2021 12:00:00 AM EDT 1.0 {tablet} active AL PRAZolam 0.25 MG eCW1 ([facility]) 0.5 ML ustekinumab 90 MG/ML Prefilled Syringe [Stelara ] Stelara 45 MG/0.5ML Stelara 45 MG/0.5ML 05/13/2021 12:00:00 AM EDT active Stelara 45 MG/0.5ML eCW1 ([facility]) Alprazolam 0.25 MG Oral Tablet ALPRAZolam 0.25 MG ALPRAZolam 0.25 MG 05/13/2021 12:00:00 AM EDT 1.0 {tablet} active AL PRAZolam 0.25 MG eCW1 ([facility]) 0.5 ML ustekinumab 90 MG/ML Prefilled Syringe [Stelara ] Stelara 45 MG/0.5ML Stelara 45 MG/0.5ML 05/13/2021 12:00:00 AM EDT active Stelara 45 MG/0.5ML eCW1 ([facility]) 0.5 ML ustekinumab 90 MG/ML Prefilled Syringe [Stelara ] Stelara 45 MG/0.5ML Stelara 45 MG/0.5ML 05/13/2021 12:00:00 AM EDT active Stelara 45 MG/0.5ML eCW1 ([facility]) Alprazolam 0.25 MG Oral Tablet ALPRAZolam 0.25 MG ALPRAZolam 0.25 MG 05/13/2021 12:00:00 AM EDT 1.0 {tablet} active AL PRAZolam 0.25 MG eCW1 ([facility]) 0.5 ML ustekinumab 90 MG/ML Prefilled Syringe [Stelara ] Stelara 45 MG/0.5ML Stelara 45 MG/0.5ML 05/13/2021 12:00:00 AM EDT active Stelara 45 MG/0.5ML eCW1 ([facility]) 0.5 ML ustekinumab 90 MG/ML Prefilled Syringe [Stelara ] Stelara 45 MG/0.5ML Stelara 45 MG/0.5ML 05/13/2021 12:00:00 AM EDT active Stelara 45 MG/0.5ML eCW1 ([facility]) 0.5 ML ustekinumab 90 MG/ML Prefilled Syringe [Stelara ] Stelara 45 MG/0.5ML Stelara 45 MG/0.5ML 05/13/2021 12:00:00 AM EDT active Stelara 45 MG/0.5ML eCW1 ([facility]) Alprazolam 0.25 MG Oral Tablet ALPRAZolam 0.25 MG ALPRAZolam 0.25 MG 05/13/2021 12:00:00 AM EDT 1.0 {tablet} active AL PRAZolam 0.25 MG eCW1 ([facility]) 0.5 ML ustekinumab 90 MG/ML Prefilled Syringe [Stelara ] Stelara 45 MG/0.5ML Stelara 45 MG/0.5ML 05/13/2021 12:00:00 AM EDT active Stelara 45 MG/0.5ML eCW1 ([facility]) 0.5 ML ustekinumab 90 MG/ML Prefilled Syringe [Stelara ] Stelara 45 MG/0.5ML Stelara 45 MG/0.5ML 05/13/2021 12:00:00 AM EDT active Stelara 45 MG/0.5ML eCW1 ([facility]) Alprazolam 0.25 MG Oral Tablet ALPRAZolam 0.25 MG ALPRAZolam 0.25 MG 05/13/2021 12:00:00 AM EDT 1.0 {tablet} active AL PRAZolam 0.25 MG eCW1 ([facility]) Alprazolam 0.25 MG Oral Tablet ALPRAZolam 0.25 MG ALPRAZolam 0.25 MG 05/13/2021 12:00:00 AM EDT 1.0 {tablet} active AL PRAZolam 0.25 MG eCW1 ([facility]) 0.5 ML ustekinumab 90 MG/ML Prefilled Syringe [Stelara ] Stelara 45 MG/0.5ML Stelara 45 MG/0.5ML 05/13/2021 12:00:00 AM EDT active Stelara 45 MG/0.5ML eCW1 ([facility]) 0.5 ML ustekinumab 90 MG/ML Prefilled Syringe [Stelara ] Stelara 45 MG/0.5ML Stelara 45 MG/0.5ML 05/13/2021 12:00:00 AM EDT active Stelara 45 MG/0.5ML eCW1 ([facility]) Alprazolam 0.25 MG Oral Tablet ALPRAZolam 0.25 MG ALPRAZolam 0.25 MG 05/13/2021 12:00:00 AM EDT 1.0 {tablet} active AL PRAZolam 0.25 MG eCW1 ([facility]) Alprazolam 0.25 MG Oral Tablet ALPRAZolam 0.25 MG ALPRAZolam 0.25 MG 05/13/2021 12:00:00 AM EDT 1.0 {tablet} active AL PRAZolam 0.25 MG eCW1 ([facility]) Alprazolam 0.25 MG Oral Tablet ALPRAZolam 0.25 MG ALPRAZolam 0.25 MG 05/13/2021 12:00:00 AM EDT 1.0 {tablet} active AL PRAZolam 0.25 MG eCW1 ([facility]) 0.5 ML ustekinumab 90 MG/ML Prefilled Syringe [Stelara ] Stelara 45 MG/0.5ML Stelara 45 MG/0.5ML 05/13/2021 12:00:00 AM EDT active Stelara 45 MG/0.5ML eCW1 ([facility]) 0.5 ML ustekinumab 90 MG/ML Prefilled Syringe [Stelara ] Stelara 45 MG/0.5ML Stelara 45 MG/0.5ML 05/13/2021 12:00:00 AM EDT active Stelara 45 MG/0.5ML eCW1 ([facility]) Alprazolam 0.25 MG Oral Tablet ALPRAZolam 0.25 MG ALPRAZolam 0.25 MG 05/13/2021 12:00:00 AM EDT 1.0 {tablet} active AL PRAZolam 0.25 MG eCW1 ([facility]) 0.5 ML ustekinumab 90 MG/ML Prefilled Syringe [Stelara ] Stelara 45 MG/0.5ML Stelara 45 MG/0.5ML 05/13/2021 12:00:00 AM EDT active Stelara 45 MG/0.5ML eCW1 ([facility]) Alprazolam 0.25 MG Oral Tablet ALPRAZolam 0.25 MG ALPRAZolam 0.25 MG 05/13/2021 12:00:00 AM EDT 1.0 {tablet} active AL PRAZolam 0.25 MG eCW1 ([facility]) 0.5 ML ustekinumab 90 MG/ML Prefilled Syringe [Stelara ] Stelara 45 MG/0.5ML Stelara 45 MG/0.5ML 05/13/2021 12:00:00 AM EDT active Stelara 45 MG/0.5ML eCW1 ([facility]) 0.5 ML ustekinumab 90 MG/ML Prefilled Syringe [Stelara ] Stelara 45 MG/0.5ML Stelara 45 MG/0.5ML 05/13/2021 12:00:00 AM EDT active Stelara 45 MG/0.5ML eCW1 ([facility]) 0.5 ML ustekinumab 90 MG/ML Prefilled Syringe [Stelara ] Stelara 45 MG/0.5ML Stelara 45 MG/0.5ML 05/13/2021 12:00:00 AM EDT active Stelara 45 MG/0.5ML eCW1 ([facility]) 0.5 ML ustekinumab 90 MG/ML Prefilled Syringe [Stelara ] Stelara 45 MG/0.5ML Stelara 45 MG/0.5ML 05/13/2021 12:00:00 AM EDT act allison eCW1 ([facility]) 0.5 ML ustekinumab 90 MG/ML Prefilled Syringe [Stelara ] Stelara 45 MG/0.5ML Stelara 45 MG/0.5ML 05/13/2021 12:00:00 AM EDT active Stelara 45 MG/0.5ML eCW1 ([facility]) 0.5 ML ustekinumab 90 MG/ML Prefilled Syringe [Stelara ] Stelara 45 MG/0.5ML Stelara 45 MG/0.5ML 05/13/2021 12:00:00 AM EDT active Stelara 45 MG/0.5ML eCW1 ([facility]) 0.5 ML ustekinumab 90 MG/ML Prefilled Syringe [Stelara ] Stelara 45 MG/0.5ML Stelara 45 MG/0.5ML 05/13/2021 12:00:00 AM EDT active Stelara 45 MG/0.5ML eCW1 ([facility]) 0.5 ML ustekinumab 90 MG/ML Prefilled Syringe [Stelara ] Stelara 45 MG/0.5ML Stelara 45 MG/0.5ML 05/13/2021 12:00:00 AM EDT active Stelara 45 MG/0.5ML eCW1 ([facility]) Alprazolam 0.25 MG Oral Tablet ALPRAZolam 0.25 MG ALPRAZolam 0.25 MG 05/13/2021 12:00:00 AM EDT 1.0 {tablet} active AL PRAZolam 0.25 MG eCW1 ([facility]) 0.5 ML ustekinumab 90 MG/ML Prefilled Syringe [Stelara ] Stelara 45 MG/0.5ML Stelara 45 MG/0.5ML 05/13/2021 12:00:00 AM EDT active Stelara 45 MG/0.5ML eCW1 ([facility]) Alprazolam 0.25 MG Oral Tablet ALPRAZolam 0.25 MG ALPRAZolam 0.25 MG 05/13/2021 12:00:00 AM EDT 1.0 {tablet} active AL PRAZolam 0.25 MG eCW1 ([facility]) 0.5 ML ustekinumab 90 MG/ML Prefilled Syringe [Stelara ] Stelara 45 MG/0.5ML Stelara 45 MG/0.5ML 05/13/2021 12:00:00 AM EDT active Stelara 45 MG/0.5ML eCW1 ([facility]) Alprazolam 0.25 MG Oral Tablet ALPRAZolam 0.25 MG ALPRAZolam 0.25 MG 05/13/2021 12:00:00 AM EDT 1.0 {tablet} active AL PRAZolam 0.25 MG eCW1 ([facility]) 0.5 ML ustekinumab 90 MG/ML Prefilled Syringe [Stelara ] Stelara 45 MG/0.5ML Stelara 45 MG/0.5ML 05/13/2021 12:00:00 AM EDT active Stelara 45 MG/0.5ML eCW1 ([facility]) Alprazolam 0.25 MG Oral Tablet ALPRAZolam 0.25 MG ALPRAZolam 0.25 MG 05/13/2021 12:00:00 AM EDT 1.0 {tablet} active eCW1 ([facility]) 0.5 ML ustekinumab 90 MG/ML Prefilled Syringe [Stelara ] Stelara 45 MG/0.5ML Stelara 45 MG/0.5ML 05/13/2021 12:00:00 AM EDT active Stelara 45 MG/0.5ML eCW1 ([facility]) 0.5 ML ustekinumab 90 MG/ML Prefilled Syringe [Stelara ] Stelara 45 MG/0.5ML Stelara 45 MG/0.5ML 05/13/2021 12:00:00 AM EDT active Stelara 45 MG/0.5ML eCW1 ([facility]) 0.5 ML ustekinumab 90 MG/ML Prefilled Syringe [Stelara ] Stelara 45 MG/0.5ML Stelara 45 MG/0.5ML 05/13/2021 12:00:00 AM EDT active Stelara 45 MG/0.5ML eCW1 ([facility]) 0.5 ML ustekinumab 90 MG/ML Prefilled Syringe [Stelara ] Stelara 45 MG/0.5ML Stelara 45 MG/0.5ML 05/13/2021 12:00:00 AM EDT active Stelara 45 MG/0.5ML eCW1 ([facility]) 0.5 ML ustekinumab 90 MG/ML Prefilled Syringe [Stelara ] Stelara 45 MG/0.5ML Stelara 45 MG/0.5ML 05/13/2021 12:00:00 AM EDT active Stelara 45 MG/0.5ML eCW1 ([facility]) 0.5 ML ustekinumab 90 MG/ML Prefilled Syringe [Stelara ] Stelara 45 MG/0.5ML Stelara 45 MG/0.5ML 05/13/2021 12:00:00 AM EDT active Stelara 45 MG/0.5ML eCW1 ([facility]) 0.5 ML ustekinumab 90 MG/ML Prefilled Syringe [Stelara ] Stelara 45 MG/0.5ML Stelara 45 MG/0.5ML 05/13/2021 12:00:00 AM EDT active Stelara 45 MG/0.5ML eCW1 ([facility]) Alprazolam 0.25 MG Oral Tablet ALPRAZolam 0.25 MG ALPRAZolam 0.25 MG 05/13/2021 12:00:00 AM EDT 1.0 {tablet} active AL PRAZolam 0.25 MG eCW1 ([facility]) 0.5 ML ustekinumab 90 MG/ML Prefilled Syringe [Stelara ] Stelara 45 MG/0.5ML Stelara 45 MG/0.5ML 05/13/2021 12:00:00 AM EDT active Stelara 45 MG/0.5ML eCW1 ([facility]) 0.5 ML ustekinumab 90 MG/ML Prefilled Syringe [Stelara ] Stelara 45 MG/0.5ML Stelara 45 MG/0.5ML 05/13/2021 12:00:00 AM EDT active Stelara 45 MG/0.5ML eCW1 ([facility]) Acetaminophen 325 MG / Hydrocodone Luis trate 7.5 MG Oral Tablet HYDROcodone- Acetaminophen 7.5-325 MG HYDROcodone-Acetaminophen 7.5-325 MG 05/11/2021 12:00:00 AM EDT 1.0 {tablet_as_needed} active HYDROcodone- Acetaminophen 7.5-325 MG eCW1 ([facility]) Acetaminophen 325 MG / Hydrocodone Luis trate 7.5 MG Oral Tablet HYDROcodone- Acetaminophen 7.5-325 MG HYDROcodone-Acetaminophen 7.5-325 MG 05/11/2021 12:00:00 AM EDT 1.0 {tablet_as_needed} active HYDROcodone- Acetaminophen 7.5-325 MG eCW1 ([facility]) Acetaminophen 325 MG / Hydrocodone Luis trate 7.5 MG Oral Tablet HYDROcodone- Acetaminophen 7.5-325 MG HYDROcodone-Acetaminophen 7.5-325 MG 05/11/2021 12:00:00 AM EDT 1.0 {tablet_as_needed} active HYDROcodone- Acetaminophen 7.5-325 MG eCW1 ([facility]) Acetaminophen 325 MG / Hydrocodone Luis trate 7.5 MG Oral Tablet HYDROcodone- Acetaminophen 7.5-325 MG HYDROcodone-Acetaminophen 7.5-325 MG 05/11/2021 12:00:00 AM EDT 1.0 {tablet_as_needed} active HYDROcodone- Acetaminophen 7.5-325 MG eCW1 ([facility]) Acetaminophen 325 MG / Hydrocodone Ulis trate 7.5 MG Oral Tablet HYDROcodone- Acetaminophen 7.5-325 MG HYDROcodone-Acetaminophen 7.5-325 MG 05/11/2021 12:00:00 AM EDT 1.0 {tablet_as_needed} active HYDROcodone- Acetaminophen 7.5-325 MG eCW1 ([facility]) Acetaminophen 325 MG / Hydrocodone Luis trate 7.5 MG Oral Tablet HYDROcodone- Acetaminophen 7.5-325 MG HYDROcodone-Acetaminophen 7.5-325 MG 05/11/2021 12:00:00 AM EDT 1.0 {tablet_as_needed} active HYDROcodone- Acetaminophen 7.5-325 MG eCW1 ([facility]) Acetaminophen 325 MG / Hydrocodone Luis trate 7.5 MG Oral Tablet HYDROcodone- Acetaminophen 7.5-325 MG HYDROcodone-Acetaminophen 7.5-325 MG 05/11/2021 12:00:00 AM EDT 1.0 {tablet_as_needed} active HYDROcodone- Acetaminophen 7.5-325 MG eCW1 ([facility]) Acetaminophen 325 MG / Hydrocodone Luis trate 7.5 MG Oral Tablet HYDROcodone- Acetaminophen 7.5-325 MG HYDROcodone-Acetaminophen 7.5-325 MG 05/11/2021 12:00:00 AM EDT 1.0 {tablet_as_needed} active HYDROcodone- Acetaminophen 7.5-325 MG eCW1 ([facility]) Acetaminophen 325 MG / Hydrocodone Luis trate 7.5 MG Oral Tablet HYDROcodone- Acetaminophen 7.5-325 MG HYDROcodone-Acetaminophen 7.5-325 MG 05/11/2021 12:00:00 AM EDT 1.0 {tablet_as_needed} active HYDROcodone- Acetaminophen 7.5-325 MG eCW1 ([facility]) Acetaminophen 325 MG / Hydrocodone Luis trate 7.5 MG Oral Tablet HYDROcodone- Acetaminophen 7.5-325 MG HYDROcodone-Acetaminophen 7.5-325 MG 05/11/2021 12:00:00 AM EDT 1.0 {tablet_as_needed} active HYDROcodone- Acetaminophen 7.5-325 MG eCW1 ([facility]) Acetaminophen 325 MG / Hydrocodone Luis trate 7.5 MG Oral Tablet HYDROcodone- Acetaminophen 7.5-325 MG HYDROcodone-Acetaminophen 7.5-325 MG 05/11/2021 12:00:00 AM EDT 1.0 {tablet_as_needed} active HYDROcodone- Acetaminophen 7.5-325 MG eCW1 ([facility]) Acetaminophen 325 MG / Hydrocodone Luis trate 7.5 MG Oral Tablet HYDROcodone- Acetaminophen 7.5-325 MG HYDROcodone-Acetaminophen 7.5-325 MG 05/11/2021 12:00:00 AM EDT 1.0 {tablet_as_needed} active HYDROcodone- Acetaminophen 7.5-325 MG eCW1 ([facility]) Acetaminophen 325 MG / Hydrocodone Luis trate 7.5 MG Oral Tablet HYDROcodone- Acetaminophen 7.5-325 MG HYDROcodone-Acetaminophen 7.5-325 MG 05/11/2021 12:00:00 AM EDT 1.0 {tablet_as_needed} active HYDROcodone- Acetaminophen 7.5-325 MG eCW1 ([facility]) Acetaminophen 325 MG / Hydrocodone Luis trate 7.5 MG Oral Tablet HYDROcodone- Acetaminophen 7.5-325 MG HYDROcodone-Acetaminophen 7.5-325 MG 05/11/2021 12:00:00 AM EDT 1.0 {tablet_as_needed} active HYDROcodone- Acetaminophen 7.5-325 MG eCW1 ([facility]) Acetaminophen 325 MG / Hydrocodone Luis trate 7.5 MG Oral Tablet HYDROcodone- Acetaminophen 7.5-325 MG HYDROcodone-Acetaminophen 7.5-325 MG 05/11/2021 12:00:00 AM EDT 1.0 {tablet_as_needed} active HYDROcodone- Acetaminophen 7.5-325 MG eCW1 ([facility]) Acetaminophen 325 MG / Hydrocodone Luis trate 7.5 MG Oral Tablet HYDROcodone- Acetaminophen 7.5-325 MG HYDROcodone-Acetaminophen 7.5-325 MG 05/11/2021 12:00:00 AM EDT 1.0 {tablet_as_needed} active HYDROcodone- Acetaminophen 7.5-325 MG eCW1 ([facility]) Acetaminophen 325 MG / Hydrocodone Luis trate 7.5 MG Oral Tablet HYDROcodone- Acetaminophen 7.5-325 MG HYDROcodone-Acetaminophen 7.5-325 MG 05/11/2021 12:00:00 AM EDT 1.0 {tablet_as_needed} active HYDROcodone- Acetaminophen 7.5-325 MG eCW1 ([facility]) Acetaminophen 325 MG / Hydrocodone Luis trate 7.5 MG Oral Tablet HYDROcodone- Acetaminophen 7.5-325 MG HYDROcodone-Acetaminophen 7.5-325 MG 05/11/2021 12:00:00 AM EDT 1.0 {tablet_as_needed} active HYDROcodone- Acetaminophen 7.5-325 MG eCW1 ([facility]) Acetaminophen 325 MG / Hydrocodone Luis trate 7.5 MG Oral Tablet HYDROcodone- Acetaminophen 7.5-325 MG HYDROcodone-Acetaminophen 7.5-325 MG 05/11/2021 12:00:00 AM EDT 1.0 {tablet_as_needed} active HYDROcodone- Acetaminophen 7.5-325 MG eCW1 ([facility]) Acetaminophen 325 MG / Hydrocodone Luis trate 7.5 MG Oral Tablet HYDROcodone- Acetaminophen 7.5-325 MG HYDROcodone-Acetaminophen 7.5-325 MG 05/11/2021 12:00:00 AM EDT 1.0 {tablet_as_needed} active HYDROcodone- Acetaminophen 7.5-325 MG eCW1 ([facility]) Acetaminophen 325 MG / Hydrocodone Luis trate 7.5 MG Oral Tablet HYDROcodone- Acetaminophen 7.5-325 MG HYDROcodone-Acetaminophen 7.5-325 MG 05/11/2021 12:00:00 AM EDT 1.0 {tablet_as_needed} active HYDROcodone- Acetaminophen 7.5-325 MG eCW1 ([facility]) Acetaminophen 325 MG / Hydrocodone Luis trate 7.5 MG Oral Tablet HYDROcodone- Acetaminophen 7.5-325 MG HYDROcodone-Acetaminophen 7.5-325 MG 05/11/2021 12:00:00 AM EDT 1.0 {tablet_as_needed} active HYDROcodone- Acetaminophen 7.5-325 MG eCW1 ([facility]) Acetaminophen 325 MG / Hydrocodone Luis trate 7.5 MG Oral Tablet HYDROcodone- Acetaminophen 7.5-325 MG HYDROcodone-Acetaminophen 7.5-325 MG 04/22/2021 12:00:00 AM EDT 1.0 {tablet_as_needed} active HYDROcodone- Acetaminophen 7.5-325 MG eCW1 ([facility]) Acetaminophen 325 MG / Hydrocodone Luis trate 7.5 MG Oral Tablet HYDROcodone- Acetaminophen 7.5-325 MG HYDROcodone-Acetaminophen 7.5-325 MG 04/22/2021 12:00:00 AM EDT 1.0 {tablet_as_needed} active HYDROcodone- Acetaminophen 7.5-325 MG eCW1 ([facility]) Acetaminophen 325 MG / Hydrocodone Luis trate 7.5 MG Oral Tablet Hydrocodone- Acetaminophen 7.5-325 MG Hydrocodone-Acetaminophen 7.5-325 MG 04/01/2021 12:00:00 AM EDT 1.0 {tablet_as_needed} active Hydrocodone- Acetaminophen 7.5-325 MG eCW1 ([facility]) Acetaminophen 325 MG / Hydrocodone Luis trate 7.5 MG Oral Tablet Hydrocodone- Acetaminophen 7.5-325 MG Hydrocodone-Acetaminophen 7.5-325 MG 04/01/2021 12:00:00 AM EDT 1.0 {tablet_as_needed} active Hydrocodone- Acetaminophen 7.5-325 MG eCW1 ([facility]) Acetaminophen 325 MG / Hydrocodone Luis trate 7.5 MG Oral Tablet Hydrocodone- Acetaminophen 7.5-325 MG Hydrocodone-Acetaminophen 7.5-325 MG 04/01/2021 12:00:00 AM EDT 1.0 {tablet_as_needed} active Hydrocodone- Acetaminophen 7.5-325 MG eCW1 ([facility]) Acetaminophen 325 MG / Hydrocodone Luis trate 7.5 MG Oral Tablet Hydrocodone- Acetaminophen 7.5-325 MG Hydrocodone-Acetaminophen 7.5-325 MG 04/01/2021 12:00:00 AM EDT 1.0 {tablet_as_needed} active Hydrocodone- Acetaminophen 7.5-325 MG eCW1 ([facility]) Levothyroxine Sodium 0.05 MG Oral Capsule Levothyroxin e Sodium 50 MCG Levothyroxine Sodium 50 MCG 03/20/2021 12:00:00 AM EDT active Levothyroxine Sodium 50 MCG eCW1 ([facility]) Levothyroxine Sodium 0.05 MG Oral Capsule Levothyroxin e Sodium 50 MCG Levothyroxine Sodium 50 MCG 03/20/2021 12:00:00 AM EDT active Levothyroxine Sodium 50 MCG [email or web address] ([facility]) Levothyroxine Sodium 0.05 MG Oral Capsule Levothyroxin e Sodium 50 MCG Levothyroxine Sodium 50 MCG 03/20/2021 12:00:00 AM EDT active Levothyroxine Sodium 50 MCG [email or web address] ([facility]) Levothyroxine Sodium 0.05 MG Oral Capsule Levothyroxin e Sodium 50 MCG Levothyroxine Sodium 50 MCG 03/20/2021 12:00:00 AM EDT active Levothyroxine Sodium 50 MCG eCW1 ([facility]) Levothyroxine Sodium 0.05 MG Oral Capsule Levothyroxin e Sodium 50 MCG Levothyroxine Sodium 50 MCG 03/20/2021 12:00:00 AM EDT active Levothyroxine Sodium 50 MCG [email or web address] ([facility]) Levothyroxine Sodium 0.05 MG Oral Capsule Levothyroxin e Sodium 50 MCG Levothyroxine Sodium 50 MCG 03/20/2021 12:00:00 AM EDT active Levothyroxine Sodium 50 MCG eCW1 ([facility]) Levothyroxine Sodium 0.05 MG Oral Capsule Levothyroxin e Sodium 50 MCG Levothyroxine Sodium 50 MCG 03/20/2021 12:00:00 AM EDT active Levothyroxine Sodium 50 MCG [email or web address] ([facility]) Levothyroxine Sodium 0.05 MG Oral Capsule Levothyroxin e Sodium 50 MCG Levothyroxine Sodium 50 MCG 03/20/2021 12:00:00 AM EDT active Levothyroxine Sodium 50 MCG [email or web address] ([facility]) Levothyroxine Sodium 0.05 MG Oral Capsule Levothyroxin e Sodium 50 MCG Levothyroxine Sodium 50 MCG 03/20/2021 12:00:00 AM EDT active Levothyroxine Sodium 50 MCG eCW1 ([facility]) Levothyroxine Sodium 0.05 MG Oral Capsule Levothyroxin e Sodium 50 MCG Levothyroxine Sodium 50 MCG 03/20/2021 12:00:00 AM EDT active Levothyroxine Sodium 50 MCG eCW1 ([facility]) Levothyroxine Sodium 0.05 MG Oral Capsule Levothyroxin e Sodium 50 MCG Levothyroxine Sodium 50 MCG 03/20/2021 12:00:00 AM EDT active Levothyroxine Sodium 50 MCG [email or web address] ([facility]) Levothyroxine Sodium 0.05 MG Oral Capsule Levothyroxin e Sodium 50 MCG Levothyroxine Sodium 50 MCG 03/20/2021 12:00:00 AM EDT suspended Levothyroxine Sodium 50 MCG [email or web address] ([facility]) Levothyroxine Sodium 0.05 MG Oral Capsule Levothyroxin e Sodium 50 MCG Levothyroxine Sodium 50 MCG 03/20/2021 12:00:00 AM EDT active Levothyroxine Sodium 50 MCG eCW1 ([facility]) Levothyroxine Sodium 0.05 MG Oral Capsule Levothyroxin e Sodium 50 MCG Levothyroxine Sodium 50 MCG 03/20/2021 12:00:00 AM EDT active Levothyroxine Sodium 50 MCG [email or web address] ([facility]) Levothyroxine Sodium 0.05 MG Oral Capsule Levothyroxin e Sodium 50 MCG Levothyroxine Sodium 50 MCG 03/20/2021 12:00:00 AM EDT active Levothyroxine Sodium 50 MCG [email or web address] ([facility]) Levothyroxine Sodium 0.05 MG Oral Capsule Levothyroxin e Sodium 50 MCG Levothyroxine Sodium 50 MCG 03/20/2021 12:00:00 AM EDT active Levothyroxine Sodium 50 MCG [email or web address] ([facility]) Levothyroxine Sodium 0.05 MG Oral Capsule Levothyroxin e Sodium 50 MCG Levothyroxine Sodium 50 MCG 03/20/2021 12:00:00 AM EDT active Levothyroxine Sodium 50 MCG [email or web address] ([facility]) Levothyroxine Sodium 0.05 MG Oral Capsule Levothyroxin e Sodium 50 MCG Levothyroxine Sodium 50 MCG 03/20/2021 12:00:00 AM EDT active Levothyroxine Sodium 50 MCG [facility] Levothyroxine Sodium 0.05 MG Oral Capsule Levothyroxin e Sodium 50 MCG Levothyroxine Sodium 50 MCG 03/20/2021 12:00:00 AM EDT active Levothyroxine Sodium 50 MCG eCW1 [facility]) Levothyroxine Sodium 0.05 MG Oral Capsule Levothyroxin e Sodium 50 MCG Levothyroxine Sodium 50 MCG 03/20/2021 12:00:00 AM EDT active Levothyroxine Sodium 50 MCG eCW1 [facility]) Levothyroxine Sodium 0.05 MG Oral Capsule Levothyroxin e Sodium 50 MCG Levothyroxine Sodium 50 MCG 03/20/2021 12:00:00 AM EDT active Levothyroxine Sodium 50 MCG eCW1 [facility]) Levothyroxine Sodium 0.05 MG Oral Capsule Levothyroxin e Sodium 50 MCG Levothyroxine Sodium 50 MCG 03/20/2021 12:00:00 AM EDT active Levothyroxine Sodium 50 MCG eCW1 ([facility]) Levothyroxine Sodium 0.05 MG Oral Capsule Levothyroxin e Sodium 50 MCG Levothyroxine Sodium 50 MCG 03/20/2021 12:00:00 AM EDT active Levothyroxine Sodium 50 MCG eCW1 [facility]) Levothyroxine Sodium 0.05 MG Oral Capsule Levothyroxin e Sodium 50 MCG Levothyroxine Sodium 50 MCG 03/20/2021 12:00:00 AM EDT suspended Levothyroxine Sodium 50 MCG eCW1 ([facility]) Levothyroxine Sodium 0.05 MG Oral Capsule Levothyroxin e Sodium 50 MCG Levothyroxine Sodium 50 MCG 03/20/2021 12:00:00 AM EDT active Levothyroxine Sodium 50 MCG eCW1 ([facility]) Levothyroxine Sodium 0.05 MG Oral Capsule Levothyroxin e Sodium 50 MCG Levothyroxine Sodium 50 MCG 03/20/2021 12:00:00 AM EDT active Levothyroxine Sodium 50 MCG eCW1 ([facility]) Levothyroxine Sodium 0.05 MG Oral Capsule Levothyroxin e Sodium 50 MCG Levothyroxine Sodium 50 MCG 03/20/2021 12:00:00 AM EDT active Levothyroxine Sodium 50 MCG eCW1 ([facility]) Levothyroxine Sodium 0.05 MG Oral Capsule Levothyroxin e Sodium 50 MCG Levothyroxine Sodium 50 MCG 03/20/2021 12:00:00 AM EDT suspended Levothyroxine Sodium 50 MCG eCW1 ([facility]) Levothyroxine Sodium 0.05 MG Oral Capsule Levothyroxin e Sodium 50 MCG Levothyroxine Sodium 50 MCG 03/20/2021 12:00:00 AM EDT active Levothyroxine Sodium 50 MCG eCW1 ([facility]) Levothyroxine Sodium 0.05 MG Oral Capsule Levothyroxin e Sodium 50 MCG Levothyroxine Sodium 50 MCG 03/20/2021 12:00:00 AM EDT active Levothyroxine Sodium 50 MCG eCW1 ([facility]) Levothyroxine Sodium 0.05 MG Oral Capsule Levothyroxin e Sodium 50 MCG Levothyroxine Sodium 50 MCG 03/20/2021 12:00:00 AM EDT suspended Levothyroxine Sodium 50 MCG eCW1 ([facility]) Levothyroxine Sodium 0.05 MG Oral Capsule Levothyroxin e Sodium 50 MCG Levothyroxine Sodium 50 MCG 03/20/2021 12:00:00 AM EDT active Levothyroxine Sodium 50 MCG eCW1 ([facility]) Levothyroxine Sodium 0.05 MG Oral Capsule Levothyroxin e Sodium 50 MCG Levothyroxine Sodium 50 MCG 03/20/2021 12:00:00 AM EDT active Levothyroxine Sodium 50 MCG eCW1 ([facility]) Levothyroxine Sodium 0.05 MG Oral Capsule Levothyroxin e Sodium 50 MCG Levothyroxine Sodium 50 MCG 03/20/2021 12:00:00 AM EDT active Levothyroxine Sodium 50 MCG eCW1 ([facility]) Levothyroxine Sodium 0.05 MG Oral Capsule Levothyroxin e Sodium 50 MCG Levothyroxine Sodium 50 MCG 03/20/2021 12:00:00 AM EDT active [facility]CW1 [facility]) Levothyroxine Sodium 0.05 MG Oral Capsule Levothyroxin e Sodium 50 MCG Levothyroxine Sodium 50 MCG 03/20/2021 12:00:00 AM EDT active Levothyroxine Sodium 50 MCG eCW1 ([facility]) Levothyroxine Sodium 0.05 MG Oral Capsule Levothyroxin e Sodium 50 MCG Levothyroxine Sodium 50 MCG 03/20/2021 12:00:00 AM EDT active Levothyroxine Sodium 50 MCG eCW1 ([facility]) Levothyroxine Sodium 0.05 MG Oral Capsule Levothyroxin e Sodium 50 MCG Levothyroxine Sodium 50 MCG 03/20/2021 12:00:00 AM EDT active Levothyroxine Sodium 50 MCG eCW1 ([facility]) Levothyroxine Sodium 0.05 MG Oral Capsule Levothyroxin e Sodium 50 MCG Levothyroxine Sodium 50 MCG 03/20/2021 12:00:00 AM EDT active Levothyroxine Sodium 50 MCG eCW1 ([facility]) Levothyroxine Sodium 0.05 MG Oral Capsule Levothyroxin e Sodium 50 MCG Levothyroxine Sodium 50 MCG 03/20/2021 12:00:00 AM EDT active Levothyroxine Sodium 50 MCG eCW1 ([facility]) Levothyroxine Sodium 0.05 MG Oral Capsule Levothyroxin e Sodium 50 MCG Levothyroxine Sodium 50 MCG 03/20/2021 12:00:00 AM EDT active Levothyroxine Sodium 50 MCG eCW1 ([facility]) Levothyroxine Sodium 0.05 MG Oral Capsule Levothyroxin e Sodium 50 MCG Levothyroxine Sodium 50 MCG 03/20/2021 12:00:00 AM EDT active Levothyroxine Sodium 50 MCG eCW1 ([facility]) Levothyroxine Sodium 0.05 MG Oral Capsule Levothyroxin e Sodium 50 MCG Levothyroxine Sodium 50 MCG 03/20/2021 12:00:00 AM EDT active Levothyroxine Sodium 50 MCG eCW1 ([facility]) Levothyroxine Sodium 0.05 MG Oral Capsule Levothyroxin e Sodium 50 MCG Levothyroxine Sodium 50 MCG 03/20/2021 12:00:00 AM EDT active Levothyroxine Sodium 50 MCG eCW1 ([facility]) Levothyroxine Sodium 0.05 MG Oral Capsule Levothyroxin e Sodium 50 MCG Levothyroxine Sodium 50 MCG 03/20/2021 12:00:00 AM EDT active Levothyroxine Sodium 50 MCG eCW1 ([facility]) Levothyroxine Sodium 0.05 MG Oral Capsule Levothyroxin e Sodium 50 MCG Levothyroxine Sodium 50 MCG 03/20/2021 12:00:00 AM EDT active Levothyroxine Sodium 50 MCG eCW1 ([facility]) Levothyroxine Sodium 0.05 MG Oral Capsule Levothyroxin e Sodium 50 MCG Levothyroxine Sodium 50 MCG 03/20/2021 12:00:00 AM EDT active Levothyroxine Sodium 50 MCG eCW1 ([facility]) Levothyroxine Sodium 0.05 MG Oral Capsule Levothyroxin e Sodium 50 MCG Levothyroxine Sodium 50 MCG 03/20/2021 12:00:00 AM EDT suspended Levothyroxine Sodium 50 MCG eCW1 ([facility]) Levothyroxine Sodium 0.05 MG Oral Capsule Levothyroxin e Sodium 50 MCG Levothyroxine Sodium 50 MCG 03/20/2021 12:00:00 AM EDT suspended Levothyroxine Sodium 50 MCG eCW1 ([facility]) Levothyroxine Sodium 0.05 MG Oral Capsule Levothyroxin e Sodium 50 MCG Levothyroxine Sodium 50 MCG 03/20/2021 12:00:00 AM EDT active Levothyroxine Sodium 50 MCG eCW1 ([facility]) Levothyroxine Sodium 0.05 MG Oral Capsule Levothyroxin e Sodium 50 MCG Levothyroxine Sodium 50 MCG 03/20/2021 12:00:00 AM EDT active Levothyroxine Sodium 50 MCG eCW1 ([facility]) Acetaminophen 325 MG / Hydrocodone Luis trate 7.5 MG Oral Tablet Hydrocodone- Acetaminophen 7.5-325 MG Hydrocodone-Acetaminophen 7.5-325 MG 03/06/2021 12:00:00 AM EDT 1.0 {tablet_as_needed} active Hydrocodone- Acetaminophen 7.5-325 MG eCW1 ([facility]) Acetaminophen 325 MG / Hydrocodone Luis trate 7.5 MG Oral Tablet Hydrocodone- Acetaminophen 7.5-325 MG Hydrocodone-Acetaminophen 7.5-325 MG 03/06/2021 12:00:00 AM EDT 1.0 {tablet_as_needed} active Hydrocodone- Acetaminophen 7.5-325 MG eCW1 ([facility]) Acetaminophen 325 MG / Hydrocodone Luis trate 7.5 MG Oral Tablet Hydrocodone- Acetaminophen 7.5-325 MG Hydrocodone-Acetaminophen 7.5-325 MG 03/06/2021 12:00:00 AM EDT 1.0 {tablet_as_needed} active Hydrocodone- Acetaminophen 7.5-325 MG eCW1 ([facility]) Acetaminophen 325 MG / Hydrocodone Luis trate 7.5 MG Oral Tablet Hydrocodone- Acetaminophen 7.5-325 MG Hydrocodone-Acetaminophen 7.5-325 MG 03/06/2021 12:00:00 AM EDT 1.0 {tablet_as_needed} active Hydrocodone- Acetaminophen 7.5-325 MG eCW1 ([facility]) No Active Medications 02/10/2021 12:00:00 AM EDT completed [facility] ([facility] ) meloxicam 15 MG Oral Tablet Meloxicam 02/10/2021 12:00:00 AM EDT active [facility] ([facility] ) Acetaminophen 325 MG / Hydrocodone Luis trate 7.5 MG Oral Tablet Hydrocodone- Acetaminophen 7.5-325 MG Hydrocodone-Acetaminophen 7.5-325 MG 02/10/2021 12:00:00 AM EDT 1.0 {tablet_as_needed} active Hydrocodone- Acetaminophen 7.5-325 MG eCW1 ([facility]) Acetaminophen 325 MG / Hydrocodone Luis trate 7.5 MG Oral Tablet Hydrocodone- Acetaminophen 7.5-325 MG Hydrocodone-Acetaminophen 7.5-325 MG 02/10/2021 12:00:00 AM EDT 1.0 {tablet_as_needed} active Hydrocodone- Acetaminophen 7.5-325 MG eCW1 ([facility]) Acetaminophen 325 MG / Hydrocodone Luis trate 7.5 MG Oral Tablet Hydrocodone- Acetaminophen 7.5-325 MG Hydrocodone-Acetaminophen 7.5-325 MG 01/24/2021 12:00:00 AM EST 1.0 {tablet_as_needed} active Hydrocodone- Acetaminophen 7.5-325 MG eCW1 ([facility]) Acetaminophen 325 MG / Hydrocodone Luis trate 7.5 MG Oral Tablet Hydrocodone- Acetaminophen 7.5-325 MG Hydrocodone-Acetaminophen 7.5-325 MG 01/24/2021 12:00:00 AM EST 1.0 {tablet_as_needed} active Hydrocodone- Acetaminophen 7.5-325 MG eCW1 ([facility]) Acetaminophen 325 MG / Hydrocodone Luis trate 7.5 MG Oral Tablet Hydrocodone- Acetaminophen 7.5-325 MG Hydrocodone-Acetaminophen 7.5-325 MG 01/07/2021 12:00:00 AM EST 1.0 {tablet_as_needed} active Hydrocodone- Acetaminophen 7.5-325 MG eCW1 ([facility]) Acetaminophen 325 MG / Hydrocodone Luis trate 7.5 MG Oral Tablet Hydrocodone- Acetaminophen 7.5-325 MG Hydrocodone-Acetaminophen 7.5-325 MG 01/07/2021 12:00:00 AM EST 1.0 {tablet_as_needed} active Hydrocodone- Acetaminophen 7.5-325 MG eCW1 ([facility]) Acetaminophen 325 MG / Hydrocodone Luis trate 7.5 MG Oral Tablet Hydrocodone- Acetaminophen 7.5-325 MG Hydrocodone-Acetaminophen 7.5-325 MG 01/07/2021 12:00:00 AM EST 1.0 {tablet_as_needed} active Hydrocodone- Acetaminophen 7.5-325 MG eCW1 ([facility]) Acetaminophen 325 MG / Hydrocodone Luis trate 7.5 MG Oral Tablet Hydrocodone- Acetaminophen 7.5-325 MG Hydrocodone-Acetaminophen 7.5-325 MG 01/07/2021 12:00:00 AM EST 1.0 {tablet_as_needed} active Hydrocodone- Acetaminophen 7.5-325 MG eCW1 ([facility]) Acetaminophen 325 MG / Hydrocodone Luis trate 7.5 MG Oral Tablet Hydrocodone- Acetaminophen 7.5-325 MG Hydrocodone-Acetaminophen 7.5-325 MG 01/07/2021 12:00:00 AM EST 1.0 {tablet_as_needed} active Hydrocodone- Acetaminophen 7.5-325 MG eCW1 ([facility]) Acetaminophen 325 MG / Hydrocodone Luis trate 7.5 MG Oral Tablet Hydrocodone- Acetaminophen 7.5-325 MG Hydrocodone-Acetaminophen 7.5-325 MG 01/07/2021 12:00:00 AM EST 1.0 {tablet_as_needed} active Hydrocodone- Acetaminophen 7.5-325 MG eCW1 ([facility]) Acetaminophen 325 MG / Hydrocodone Luis trate 7.5 MG Oral Tablet Hydrocodone- Acetaminophen 7.5-325 MG Hydrocodone-Acetaminophen 7.5-325 MG 01/07/2021 12:00:00 AM EST 1.0 {tablet_as_needed} active Hydrocodone- Acetaminophen 7.5-325 MG eCW1 ([facility]) Acetaminophen 325 MG / Hydrocodone Luis trate 7.5 MG Oral Tablet Hydrocodone- Acetaminophen 7.5-325 MG Hydrocodone-Acetaminophen 7.5-325 MG 01/07/2021 12:00:00 AM EST 1.0 {tablet_as_needed} active Hydrocodone- Acetaminophen 7.5-325 MG eCW1 ([facility]) Acetaminophen 325 MG / Hydrocodone Luis trate 7.5 MG Oral Tablet Hydrocodone- Acetaminophen 7.5-325 MG Hydrocodone-Acetaminophen 7.5-325 MG 01/07/2021 12:00:00 AM EST 1.0 {tablet_as_needed} active Hydrocodone- Acetaminophen 7.5-325 MG eCW1 ([facility]) Metronidazole 500 MG Oral Tablet Metronidazole 500 MG 2020 12:00:00 AM EST 1.0 {tablet} active Metronidazo le 500 MG eCW1 ([facility]) Metronidazole 500 MG Oral Tablet Metronidazole 500 MG 2020 12:00:00 AM EST 1.0 {tablet} active Metronidazo le 500 MG eCW1 ([facility]) Metronidazole 500 MG Oral Tablet Metronidazole 500 MG 2020 12:00:00 AM EST 1.0 {tablet} active Metronidazo le 500 MG eCW1 [facility]) Metronidazole 500 MG Oral Tablet metroNIDAZOLE 500 MG metroN IDAZOLE 500 MG 01/06/2021 12:00:00 AM EST 1.0 {tablet} suspende d metroNIDAZOLE 500 MG eCW1 ([facility]) Metronidazole 500 MG Oral Tablet Metronidazole 500 MG 2020 12:00:00 AM EST 1.0 {tablet} active Metronidazo le 500 MG eCW1 ([facility]) Metronidazole 500 MG Oral Tablet Metronidazole 500 MG 2020 12:00:00 AM EST 1.0 {tablet} active Metronidazo le 500 MG eCW1 ([facility]) Metronidazole 500 MG Oral Tablet Metronidazole 500 MG 2020 12:00:00 AM EST 1.0 {tablet} active Metronidazo le 500 MG eCW1 ([facility]) Metronidazole 500 MG Oral Tablet Metronidazole 500 MG 2020 12:00:00 AM EST 1.0 {tablet} active Metronidazo le 500 MG eCW1 [facility]) Metronidazole 500 MG Oral Tablet metroNIDAZOLE 500 MG metroN IDAZOLE 500 MG 01/06/2021 12:00:00 AM EST 1.0 {tablet} suspende d metroNIDAZOLE 500 MG eCW1 ([facility]) Metronidazole 500 MG Oral Tablet Metronidazole 500 MG 2020 12:00:00 AM EST 1.0 {tablet} suspended Metronid azole 500 MG eCW1 ([facility]) Metronidazole 500 MG Oral Tablet metroNIDAZOLE 500 MG metroN IDAZOLE 500 MG 01/06/2021 12:00:00 AM EST 1.0 {tablet} suspende d metroNIDAZOLE 500 MG eCW1 ([facility]) Metronidazole 500 MG Oral Tablet Metronidazole 500 MG 2020 12:00:00 AM EST 1.0 {tablet} active Metronidazo le 500 MG eCW1 ([facility]) Metronidazole 500 MG Oral Tablet Metronidazole 500 MG 2020 12:00:00 AM EST 1.0 {tablet} active Metronidazo le 500 MG eCW1 ([facility]) Metronidazole 500 MG Oral Tablet Metronidazole 500 MG 2020 12:00:00 AM EST 1.0 {tablet} suspended Metronid azole 500 MG eCW1 ([facility]) Metronidazole 500 MG Oral Tablet Metronidazole 500 MG 2020 12:00:00 AM EST 1.0 {tablet} active Metronidazo le 500 MG eCW1 ([facility]) Metronidazole 500 MG Oral Tablet Metronidazole 500 MG 2020 12:00:00 AM EST 1.0 {tablet} active Metronidazo le 500 MG eCW1 ([facility]) Metronidazole 500 MG Oral Tablet Metronidazole 500 MG 2020 12:00:00 AM EST 1.0 {tablet} suspended Metronid azole 500 MG eCW1 ([facility]) Metronidazole 500 MG Oral Tablet Metronidazole 500 MG 2020 12:00:00 AM EST 1.0 {tablet} active Metronidazo le 500 MG eCW1 ([facility]) Metronidazole 500 MG Oral Tablet Metronidazole 500 MG 2020 12:00:00 AM EST 1.0 {tablet} active Metronidazo le 500 MG eCW1 ([facility]) Metronidazole 500 MG Oral Tablet Metronidazole 500 MG 2020 12:00:00 AM EST 1.0 {tablet} active Metronidazo le 500 MG eCW1 ([facility]) Metronidazole 500 MG Oral Tablet Metronidazole 500 MG 2020 12:00:00 AM EST 1.0 {tablet} suspended Metronid azole 500 MG eCW1 ([facility]) Metronidazole 500 MG Oral Tablet Metronidazole 500 MG 2020 12:00:00 AM EST 1.0 {tablet} active Metronidazo le 500 MG eCW1 ([facility]) Metronidazole 500 MG Oral Tablet metroNIDAZOLE 500 MG metroN IDAZOLE 500 MG 01/06/2021 12:00:00 AM EST 1.0 {tablet} suspende d metroNIDAZOLE 500 MG eCW1 ([facility]) Metronidazole 500 MG Oral Tablet Metronidazole 500 MG 2020 12:00:00 AM EST 1.0 {tablet} active Metronidazo le 500 MG eCW1 ([facility]) Metronidazole 500 MG Oral Tablet Metronidazole 500 MG 2020 12:00:00 AM EST 1.0 {tablet} active Metronidazo le 500 MG eCW1 [facility]) Metronidazole 500 MG Oral Tablet metroNIDAZOLE 500 MG metroN IDAZOLE 500 MG 01/06/2021 12:00:00 AM EST 1.0 {tablet} suspende d metroNIDAZOLE 500 MG eCW1 ([facility]) al mag [id number] lidocaine (MAGIC MOUTHW SILVIA) suspension 12/25/2020 12:00:00 AM EST active SWISH AND SPIT 5 MLS BY MOUTH 3 TO 4 TIMES PER DAY [facility] Magic Mouth Wash 12/25/2020 12:00:00 AM EST a ctive MEDENT ([facility]) Fluconazole 150 MG Oral Tablet Fluconazole 150 MG 12/23/2020 12:00: 00 AM EST 1.0 {tablet} active Fluconazole 150 MG eCW1 [facility]) Fluconazole 150 MG Oral Tablet Fluconazole 150 MG 12/23/2020 12:00: 00 AM EST 1.0 {tablet} suspended Fluconazole 150 M G eCW1 ([facility]) Fluconazole 150 MG Oral Tablet Fluconazole 150 MG 12/23/2020 12:00: 00 AM EST 1.0 {tablet} active Fluconazole 150 MG eCW1 ([facility]) Fluconazole 150 MG Oral Tablet Fluconazole 150 MG 12/23/2020 12:00: 00 AM EST 1.0 {tablet} active Fluconazole 150 MG eCW1 ([facility]) Fluconazole 150 MG Oral Tablet Fluconazole 150 MG 12/23/2020 12:00: 00 AM EST 1.0 {tablet} active Fluconazole 150 MG eCW1 ([facility]) Fluconazole 150 MG Oral Tablet Fluconazole 150 MG 12/23/2020 12:00: 00 AM EST 1.0 {tablet} active Fluconazole 150 MG eCW1 ([facility]) Fluconazole 150 MG Oral Tablet Fluconazole 150 MG 12/23/2020 12:00: 00 AM EST 1.0 {tablet} suspended Fluconazole 150 M G eCW1 ([facility]) Fluconazole 150 MG Oral Tablet Fluconazole 150 MG 12/23/2020 12:00: 00 AM EST 1.0 {tablet} suspended Fluconazole 150 M G eCW1 ([facility]) Fluconazole 150 MG Oral Tablet Fluconazole 150 MG 12/23/2020 12:00: 00 AM EST 1.0 {tablet} active Fluconazole 150 MG eCW1 ([facility]) Fluconazole 150 MG Oral Tablet Fluconazole 150 MG 12/23/2020 12:00: 00 AM EST 1.0 {tablet} suspended Fluconazole 150 M G eCW1 ([facility]) Fluconazole 150 MG Oral Tablet Fluconazole 150 MG 12/23/2020 12:00: 00 AM EST 1.0 {tablet} active Fluconazole 150 MG eCW1 ([facility]) Fluconazole 150 MG Oral Tablet Fluconazole 150 MG 12/23/2020 12:00: 00 AM EST 1.0 {tablet} active Fluconazole 150 MG eCW1 ([facility]) Fluconazole 150 MG Oral Tablet Fluconazole 150 MG 12/23/2020 12:00: 00 AM EST 1.0 {tablet} active Fluconazole 150 MG eCW1 ([facility]) Fluconazole 150 MG Oral Tablet Fluconazole 150 MG 12/23/2020 12:00: 00 AM EST 1.0 {tablet} suspended Fluconazole 150 M G eCW1 ([facility]) Fluconazole 150 MG Oral Tablet Fluconazole 150 MG 12/23/2020 12:00: 00 AM EST 1.0 {tablet} active Fluconazole 150 MG eCW1 ([facility]) Fluconazole 150 MG Oral Tablet Fluconazole 150 MG 12/23/2020 12:00: 00 AM EST 1.0 {tablet} active Fluconazole 150 MG eCW1 ([facility]) Fluconazole 150 MG Oral Tablet Fluconazole 150 MG 12/23/2020 12:00: 00 AM EST 1.0 {tablet} active Fluconazole 150 MG eCW1 ([facility]) Fluconazole 150 MG Oral Tablet Fluconazole 150 MG 12/23/2020 12:00: 00 AM EST 1.0 {tablet} active Fluconazole 150 MG eCW1 ([facility]) Fluconazole 150 MG Oral Tablet Fluconazole 150 MG 12/23/2020 12:00: 00 AM EST 1.0 {tablet} active Fluconazole 150 MG eCW1 ([facility]) Fluconazole 150 MG Oral Tablet Fluconazole 150 MG 12/23/2020 12:00: 00 AM EST 1.0 {tablet} suspended Fluconazole 150 M G eCW1 ([facility]) Fluconazole 150 MG Oral Tablet Fluconazole 150 MG 12/23/2020 12:00: 00 AM EST 1.0 {tablet} active Fluconazole 150 MG eCW1 ([facility]) Fluconazole 150 MG Oral Tablet Fluconazole 150 MG 12/23/2020 12:00: 00 AM EST 1.0 {tablet} active Fluconazole 150 MG eCW1 ([facility]) Fluconazole 150 MG Oral Tablet Fluconazole 150 MG 12/23/2020 12:00: 00 AM EST 1.0 {tablet} suspended Fluconazole 150 M G eCW1 ([facility]) Fluconazole 150 MG Oral Tablet Fluconazole 150 MG 12/23/2020 12:00: 00 AM EST 1.0 {tablet} suspended Fluconazole 150 M G eCW1 ([facility]) Fluconazole 150 MG Oral Tablet Fluconazole 150 MG 12/23/2020 12:00: 00 AM EST 1.0 {tablet} active Fluconazole 150 MG eCW1 ([facility]) Fluconazole 150 MG Oral Tablet Fluconazole 150 MG 12/23/2020 12:00: 00 AM EST 1.0 {tablet} suspended Fluconazole 150 M G eCW1 ([facility]) Fluconazole 150 MG Oral Tablet Fluconazole 150 MG 12/23/2020 12:00: 00 AM EST 1.0 {tablet} active Fluconazole 150 MG eCW1 ([facility]) Fluconazole 150 MG Oral Tablet Fluconazole 150 MG 12/23/2020 12:00: 00 AM EST 1.0 {tablet} active Fluconazole 150 MG eCW1 ([facility]) Fluconazole 150 MG Oral Tablet Fluconazole 150 MG 12/23/2020 12:00: 00 AM EST 1.0 {tablet} active Fluconazole 150 MG eCW1 ([facility]) Fluconazole 150 MG Oral Tablet Fluconazole 150 MG 12/23/2020 12:00: 00 AM EST 1.0 {tablet} active Fluconazole 150 MG eCW1 ([facility]) Fluconazole 150 MG Oral Tablet Fluconazole 150 MG 12/23/2020 12:00: 00 AM EST 1.0 {tablet} active Fluconazole 150 MG eCW1 ([facility]) Fluconazole 150 MG Oral Tablet Fluconazole 150 MG 12/23/2020 12:00: 00 AM EST 1.0 {tablet} active Fluconazole 150 MG eCW1 [facility]) Azithromycin 500 MG Oral Tablet Azithromycin 500 MG 12/20/2020 1 2:00:00 AM EST active Azithromycin 500 MG eCW1 ([facility]) Azithromycin 500 MG Oral Tablet Azithromycin 500 MG 12/20/2020 1 2:00:00 AM EST suspended Azithromycin 5 00 MG eCW1 ([facility]) Azithromycin 500 MG Oral Tablet Azithromycin 500 MG 12/20/2020 1 2:00:00 AM EST active Azithromycin 500 MG eCW1 ([facility]) Azithromycin 500 MG Oral Tablet Azithromycin 500 MG 12/20/2020 1 2:00:00 AM EST active Azithromycin 500 MG eCW1 ([facility]) Azithromycin 500 MG Oral Tablet Azithromycin 500 MG 12/20/2020 1 2:00:00 AM EST active Azithromycin 500 MG eCW1 ([facility]) Azithromycin 500 MG Oral Tablet Azithromycin 500 MG 12/20/2020 1 2:00:00 AM EST active Azithromycin 500 MG eCW1 ([facility]) Azithromycin 500 MG Oral Tablet Azithromycin 500 MG 12/20/2020 1 2:00:00 AM EST suspended Azithromycin 5 00 MG eCW1 ([facility]) Azithromycin 500 MG Oral Tablet Azithromycin 500 MG 12/20/2020 1 2:00:00 AM EST suspended Azithromycin 5 00 MG eCW1 ([facility]) Azithromycin 500 MG Oral Tablet Azithromycin 500 MG 12/20/2020 1 2:00:00 AM EST active Azithromycin 500 MG eCW1 ([facility]) Azithromycin 500 MG Oral Tablet Azithromycin 500 MG 12/20/2020 1 2:00:00 AM EST suspended Azithromycin 5 00 MG eCW1 ([facility]) Azithromycin 500 MG Oral Tablet Azithromycin 500 MG 12/20/2020 1 2:00:00 AM EST suspended Azithromycin 5 00 MG eCW1 ([facility]) Azithromycin 500 MG Oral Tablet Azithromycin 500 MG 12/20/2020 1 2:00:00 AM EST suspended Azithromycin 5 00 MG eCW1 ([facility]) Azithromycin 500 MG Oral Tablet Azithromycin 500 MG 12/20/2020 1 2:00:00 AM EST active Azithromycin 500 MG eCW1 ([facility]) Azithromycin 500 MG Oral Tablet Azithromycin 500 MG 12/20/2020 1 2:00:00 AM EST suspended Azithromycin 5 00 MG eCW1 ([facility]) Azithromycin 500 MG Oral Tablet Azithromycin 500 MG 12/20/2020 1 2:00:00 AM EST active Azithromycin 500 MG eCW1 ([facility]) Azithromycin 500 MG Oral Tablet Azithromycin 500 MG 12/20/2020 1 2:00:00 AM EST active Azithromycin 500 MG eCW1 ([facility]) Azithromycin 500 MG Oral Tablet Azithromycin 500 MG 12/20/2020 1 2:00:00 AM EST active Azithromycin 500 MG eCW1 ([facility]) Azithromycin 500 MG Oral Tablet Azithromycin 500 MG 12/20/2020 1 2:00:00 AM EST active Azithromycin 500 MG eCW1 ([facility]) Azithromycin 500 MG Oral Tablet Azithromycin 500 MG 12/20/2020 1 2:00:00 AM EST active Azithromycin 500 MG eCW1 ([facility]) Azithromycin 500 MG Oral Tablet Azithromycin 500 MG 12/20/2020 1 2:00:00 AM EST active Azithromycin 500 MG eCW1 ([facility]) Azithromycin 500 MG Oral Tablet Azithromycin 500 MG 12/20/2020 1 2:00:00 AM EST active Azithromycin 500 MG eCW1 ([facility]) Azithromycin 500 MG Oral Tablet Azithromycin 500 MG 12/20/2020 1 2:00:00 AM EST active Azithromycin 500 MG eCW1 ([facility]) Azithromycin 500 MG Oral Tablet Azithromycin 500 MG 12/20/2020 1 2:00:00 AM EST active Azithromycin 500 MG eCW1 ([facility]) Azithromycin 500 MG Oral Tablet Azithromycin 500 MG 12/20/2020 1 2:00:00 AM EST active Azithromycin 500 MG eCW1 ([facility]) Azithromycin 500 MG Oral Tablet Azithromycin 500 MG 12/20/2020 1 2:00:00 AM EST active Azithromycin 500 MG eCW1 ([facility]) Azithromycin 500 MG Oral Tablet Azithromycin 500 MG 12/20/2020 1 2:00:00 AM EST active Azithromycin 500 MG eCW1 [facility] Azithromycin 500 MG Oral Tablet Azithromycin 500 MG 12/20/2020 1 2:00:00 AM EST active Azithromycin 500 MG eCW1 [facility] Azithromycin 500 MG Oral Tablet Azithromycin 500 MG 12/20/2020 1 2:00:00 AM EST suspended Azithromycin 5 00 MG eCW1 [facility] Azithromycin 500 MG Oral Tablet Azithromycin 500 MG 12/20/2020 1 2:00:00 AM EST suspended Azithromycin 5 00 MG eCW1 [facility] Azithromycin 500 MG Oral Tablet Azithromycin 500 MG 12/20/2020 1 2:00:00 AM EST active Azithromycin 500 MG eCW1 [facility] Azithromycin 500 MG Oral Tablet Azithromycin 500 MG 12/20/2020 1 2:00:00 AM EST active Azithromycin 500 MG eCW1 [facility] Azithromycin 500 MG Oral Tablet Azithromycin 500 MG 12/20/2020 1 2:00:00 AM EST active Azithromycin 500 MG eCW1 ([facility]) Trazodone Hydrochloride 50 MG Oral Tablet TraZODone HC l 50 MG TraZODone HCl 50 MG 12/13/2020 12:00:00 AM EST active TraZODone HCl 50 MG eCW1 ([facility]) Acetaminophen 325 MG / Hydrocodone Luis trate 7.5 MG Oral Tablet Hydrocodone- Acetaminophen 7.5-325 MG Hydrocodone-Acetaminophen 7.5-325 MG 12/13/2020 12:00:00 AM EST 1.0 {tablet_as_needed} active Hydrocodone- Acetaminophen 7.5-325 MG eCW1 ([facility]) Trazodone Hydrochloride 50 MG Oral Tablet TraZODone HC l 50 MG TraZODone HCl 50 MG 12/13/2020 12:00:00 AM EST active TraZODone HCl 50 MG eCW1 ([facility]) Trazodone Hydrochloride 50 MG Oral Tablet TraZODone HC l 50 MG TraZODone HCl 50 MG 12/13/2020 12:00:00 AM EST active TraZODone HCl 50 MG eCW1 ([facility]) Trazodone Hydrochloride 50 MG Oral Tablet traZODone (D ESYREL) 50 MG tablet traZODone (DESYREL) 50 MG tablet 12/13/2020 12:00:00 AM EST active TAKE 1 TO 2 TABLETS BY MOUTH EVERY DAY AT BEDTIME N EEDED [facility] buspirone hydrochloride 15 MG Oral Tablet busPIRone (B USPAR) 15 MG tablet busPIRone (BUSPAR) 15 MG tablet 12/13/2020 12:00:00 AM EST 15 mg O ral active Take 15 mg by mouth 2 (two) time s a day [facility] Trazodone Hydrochloride 50 MG Oral Tablet TraZODone HC l 50 MG TraZODone HCl 50 MG 12/13/2020 12:00:00 AM EST active TraZODone HCl 50 MG eCW1 [facility] Trazodone Hydrochloride 50 MG Oral Tablet TraZODone HC l 50 MG TraZODone HCl 50 MG 12/13/2020 12:00:00 AM EST active TraZODone HCl 50 MG eCW1 ([facility]) Acetaminophen 325 MG / Hydrocodone Luis trate 7.5 MG Oral Tablet Hydrocodone- Acetaminophen 7.5-325 MG Hydrocodone-Acetaminophen 7.5-325 MG 12/13/2020 12:00:00 AM EST 1.0 {tablet_as_needed} active Hydrocodone- Acetaminophen 7.5-325 MG eCW1 ([facility]) Acetaminophen 325 MG / Hydrocodone Luis trate 7.5 MG Oral Tablet Hydrocodone- Acetaminophen 7.5-325 MG Hydrocodone-Acetaminophen 7.5-325 MG 12/13/2020 12:00:00 AM EST 1.0 {tablet_as_needed} active Hydrocodone- Acetaminophen 7.5-325 MG eCW1 ([facility]) Trazodone Hydrochloride 50 MG Oral Tablet TraZODone HC l 50 MG TraZODone HCl 50 MG 12/13/2020 12:00:00 AM EST active TraZODone HCl 50 MG eCW1 ([facility]) Trazodone Hydrochloride 50 MG Oral Tablet TraZODone HC l 50 MG TraZODone HCl 50 MG 12/13/2020 12:00:00 AM EST active TraZODone HCl 50 MG eCW1 ([facility]) Trazodone Hydrochloride 50 MG Oral Tablet TraZODone HC l 50 MG TraZODone HCl 50 MG 12/13/2020 12:00:00 AM EST active TraZODone HCl 50 MG eCW1 ([facility]) Trazodone Hydrochloride 50 MG Oral Tablet TraZODone HC l 50 MG TraZODone HCl 50 MG 12/13/2020 12:00:00 AM EST active TraZODone HCl 50 MG eCW1 ([facility]) Acetaminophen 325 MG / Hydrocodone Luis trate 7.5 MG Oral Tablet Hydrocodone- Acetaminophen 7.5-325 MG Hydrocodone-Acetaminophen 7.5-325 MG 12/13/2020 12:00:00 AM EST 1.0 {tablet_as_needed} active Hydrocodone- Acetaminophen 7.5-325 MG eCW1 ([facility]) Acetaminophen 325 MG / Hydrocodone Luis trate 7.5 MG Oral Tablet Hydrocodone- Acetaminophen 7.5-325 MG Hydrocodone-Acetaminophen 7.5-325 MG 12/13/2020 12:00:00 AM EST 1.0 {tablet_as_needed} active Hydrocodone- Acetaminophen 7.5-325 MG eCW1 ([facility]) Trazodone Hydrochloride 50 MG Oral Tablet TraZODone HC l 50 MG TraZODone HCl 50 MG 12/13/2020 12:00:00 AM EST active TraZODone HCl 50 MG eCW1 ([facility]) Trazodone Hydrochloride 50 MG Oral Tablet TraZODone HC l 50 MG TraZODone HCl 50 MG 12/13/2020 12:00:00 AM EST active TraZODone HCl 50 MG eCW1 ([facility]) Trazodone Hydrochloride 50 MG Oral Tablet TraZODone HC l 50 MG TraZODone HCl 50 MG 12/13/2020 12:00:00 AM EST active TraZODone HCl 50 MG eCW1 ([facility]) Trazodone Hydrochloride 50 MG Oral Tablet TraZODone HC l 50 MG TraZODone HCl 50 MG 12/13/2020 12:00:00 AM EST active TraZODone HCl 50 MG eCW1 ([facility]) Trazodone Hydrochloride 50 MG Oral Tablet TraZODone HC l 50 MG TraZODone HCl 50 MG 12/13/2020 12:00:00 AM EST active TraZODone HCl 50 MG eCW1 ([facility]) Trazodone Hydrochloride 50 MG Oral Tablet TraZODone HC l 50 MG TraZODone HCl 50 MG 12/13/2020 12:00:00 AM EST active TraZODone HCl 50 MG eCW1 ([facility]) Trazodone Hydrochloride 50 MG Oral Tablet TraZODone HC l 50 MG TraZODone HCl 50 MG 12/13/2020 12:00:00 AM EST active TraZODone HCl 50 MG eCW1 ([facility]) Acetaminophen 325 MG / Hydrocodone Luis trate 7.5 MG Oral Tablet Hydrocodone- Acetaminophen 7.5-325 MG Hydrocodone-Acetaminophen 7.5-325 MG 12/13/2020 12:00:00 AM EST 1.0 {tablet_as_needed} active Hydrocodone- Acetaminophen 7.5-325 MG eCW1 ([facility]) Acetaminophen 325 MG / Hydrocodone Ulis trate 7.5 MG Oral Tablet Hydrocodone- Acetaminophen 7.5-325 MG Hydrocodone-Acetaminophen 7.5-325 MG 12/13/2020 12:00:00 AM EST 1.0 {tablet_as_needed} active Hydrocodone- Acetaminophen 7.5-325 MG eCW1 ([facility]) Acetaminophen 325 MG / Hydrocodone Luis trate 7.5 MG Oral Tablet Hydrocodone- Acetaminophen 7.5-325 MG Hydrocodone-Acetaminophen 7.5-325 MG 12/13/2020 12:00:00 AM EST 1.0 {tablet_as_needed} active Hydrocodone- Acetaminophen 7.5-325 MG eCW1 ([facility]) Trazodone Hydrochloride 50 MG Oral Tablet TraZODone HC l 50 MG TraZODone HCl 50 MG 12/13/2020 12:00:00 AM EST active TraZODone HCl 50 MG eCW1 ([facility]) Trazodone Hydrochloride 50 MG Oral Tablet TraZODone HC l 50 MG TraZODone HCl 50 MG 12/13/2020 12:00:00 AM EST active TraZODone HCl 50 MG eCW1 ([facility]) Acetaminophen 325 MG / Hydrocodone Luis trate 7.5 MG Oral Tablet Hydrocodone- Acetaminophen 7.5-325 MG Hydrocodone-Acetaminophen 7.5-325 MG 12/13/2020 12:00:00 AM EST 1.0 {tablet_as_needed} active Hydrocodone- Acetaminophen 7.5-325 MG eCW1 ([facility]) Trazodone Hydrochloride 50 MG Oral Tablet TraZODone HC l 50 MG TraZODone HCl 50 MG 12/13/2020 12:00:00 AM EST active TraZODone HCl 50 MG eCW1 ([facility]) drospirenone 3 MG / Ethinyl Estradiol 0. 02 MG Oral Tablet drospirenone-ethinyl estradiol (FRANK) 3-0.02 MG per tablet drospirenone-ethinyl estradiol (FRANK) 3-0 .02 MG per tablet 12/12/2020 12:00:00 AM EST 1 {tbl} Oral ac tive Take 1 tablet by mouth daily [facility] Nystatin [id number] UNT Oral Tablet Nystatin 11/24/2020 12:00:00 AM EST completed [facility] ([facility], [facility]) Magic Mouth Wash 11/11/2020 12:00:00 AM EST c ompleted [facility] ([facility], [facility]) Acetaminophen 325 MG / Hydrocodone Lusi trate 5 MG Oral Tablet Hydrocodone- Acetaminophen 5-325 MG Hydrocodone-Acetaminophen 5-325 MG 10/31/2020 12:00:00 AM EST 1.0 {tablet_as_needed} active Hydrocodone-Acetaminophen 5-325 MG eCW1 ([facility]) Acetaminophen 325 MG / Hydrocodone Luis trate 5 MG Oral Tablet Hydrocodone- Acetaminophen 5-325 MG Hydrocodone-Acetaminophen 5-325 MG 10/31/2020 12:00:00 AM EST 1.0 {tablet_as_needed} active Hydrocodone-Acetaminophen 5-325 MG eCW1 ([facility]) Acetaminophen 325 MG / Hydrocodone Luis trate 5 MG Oral Tablet Hydrocodone- Acetaminophen 5-325 MG Hydrocodone-Acetaminophen 5-325 MG 10/31/2020 12:00:00 AM EST 1.0 {tablet_as_needed} active Hydrocodone-Acetaminophen 5-325 MG eCW1 ([facility]) Acetaminophen 325 MG / Hydrocodone Luis trate 5 MG Oral Tablet Hydrocodone- Acetaminophen 5-325 MG Hydrocodone-Acetaminophen 5-325 MG 10/31/2020 12:00:00 AM EST 1.0 {tablet_as_needed} active Hydrocodone-Acetaminophen 5-325 MG eCW1 ([facility]) Acetaminophen 325 MG / Hydrocodone Luis trate 5 MG Oral Tablet Hydrocodone- Acetaminophen 5-325 MG Hydrocodone-Acetaminophen 5-325 MG 10/31/2020 12:00:00 AM EST 1.0 {tablet_as_needed} active Hydrocodone-Acetaminophen 5-325 MG eCW1 ([facility]) Acetaminophen 325 MG / Hydrocodone Luis trate 5 MG Oral Tablet Hydrocodone- Acetaminophen 5-325 MG Hydrocodone-Acetaminophen 5-325 MG 10/31/2020 12:00:00 AM EST 1.0 {tablet_as_needed} active Hydrocodone-Acetaminophen 5-325 MG eCW1 ([facility]) Acetaminophen 325 MG / Hydrocodone Luis trate 5 MG Oral Tablet Hydrocodone- Acetaminophen 5-325 MG Hydrocodone-Acetaminophen 5-325 MG 10/31/2020 12:00:00 AM EST 1.0 {tablet_as_needed} active Hydrocodone-Acetaminophen 5-325 MG eCW1 ([facility]) Sertraline 50 MG Oral Tablet Sertraline HCl 50 MG Sertraline HCl 50 MG 10/18/2020 12:00:00 AM EST 1.0 {tablet} active Sertraline HCl 50 MG eCW1 ([facility]) Sertraline 50 MG Oral Tablet Sertraline HCl 50 MG Sertraline HCl 50 MG 10/18/2020 12:00:00 AM EST 1.0 {tablet} active Sertraline HCl 50 MG eCW1 ([facility]) Sertraline 50 MG Oral Tablet Sertraline HCl 50 MG Sertraline HCl 50 MG 10/18/2020 12:00:00 AM EST 1.0 {tablet} active Sertraline HCl 50 MG eCW1 ([facility]) Sertraline 50 MG Oral Tablet Sertraline HCl 50 MG Sertraline HCl 50 MG 10/18/2020 12:00:00 AM EST 1.0 {tablet} active Sertraline HCl 50 MG eCW1 ([facility]) Sertraline 50 MG Oral Tablet Sertraline HCl 50 MG Sertraline HCl 50 MG 10/18/2020 12:00:00 AM EST 1.0 {tablet} active Sertraline HCl 50 MG eCW1 ([facility]) buspirone hydrochloride 15 MG Oral Tablet BusPIRone HC l 15 MG BusPIRone HCl 15 MG 10/18/2020 12:00:00 AM EST 1.0 {tablet} activ e BusPIRone HCl 15 MG eCW1 ([facility]) buspirone hydrochloride 15 MG Oral Tablet BusPIRone HC l 15 MG BusPIRone HCl 15 MG 10/18/2020 12:00:00 AM EST 1.0 {tablet} activ e BusPIRone HCl 15 MG eCW1 ([facility]) buspirone hydrochloride 15 MG Oral Tablet BusPIRone HC l 15 MG BusPIRone HCl 15 MG 10/18/2020 12:00:00 AM EST 1.0 {tablet} activ e BusPIRone HCl 15 MG eCW1 ([facility]) buspirone hydrochloride 7.5 MG Oral Tablet BusPIRone H Cl 7.5 MG BusPIRone HCl 7.5 MG 10/18/2020 12:00:00 AM EST 1.0 {tablet} activ e BusPIRone HCl 7.5 MG eCW1 ([facility]) Sertraline 50 MG Oral Tablet Sertraline HCl 50 MG Sertraline HCl 50 MG 10/18/2020 12:00:00 AM EST 1.0 {tablet} active Sertraline HCl 50 MG eCW1 ([facility]) Sertraline 50 MG Oral Tablet Sertraline HCl 50 MG Sertraline HCl 50 MG 10/18/2020 12:00:00 AM EST 1.0 {tablet} active Sertraline HCl 50 MG eCW1 ([facility]) buspirone hydrochloride 15 MG Oral Tablet BusPIRone HC l 15 MG BusPIRone HCl 15 MG 10/18/2020 12:00:00 AM EST 1.0 {tablet} activ e BusPIRone HCl 15 MG eCW1 ([facility] buspirone hydrochloride 15 MG Oral Tablet BusPIRone HC l 15 MG BusPIRone HCl 15 MG 10/18/2020 12:00:00 AM EST 1.0 {tablet} activ e BusPIRone HCl 15 MG eCW1 ([facility] buspirone hydrochloride 15 MG Oral Tablet BusPIRone HC l 15 MG BusPIRone HCl 15 MG 10/18/2020 12:00:00 AM EST 1.0 {tablet} activ e BusPIRone HCl 15 MG eCW1 ([facility]) Sertraline 50 MG Oral Tablet Sertraline HCl 50 MG Sertraline HCl 50 MG 10/18/2020 12:00:00 AM EST 1.0 {tablet} active Sertraline HCl 50 MG eCW1 ([facility]) Sertraline 50 MG Oral Tablet Sertraline HCl 50 MG Sertraline HCl 50 MG 10/18/2020 12:00:00 AM EST 1.0 {tablet} active Sertraline HCl 50 MG eCW1 ([facility]) Sertraline 50 MG Oral Tablet Sertraline HCl 50 MG Sertraline HCl 50 MG 10/18/2020 12:00:00 AM EST 1.0 {tablet} active Sertraline HCl 50 MG eCW1 ([facility]) Sertraline 50 MG Oral Tablet Sertraline HCl 50 MG Sertraline HCl 50 MG 10/18/2020 12:00:00 AM EST 1.0 {tablet} active Sertraline HCl 50 MG eCW1 ([facility]) Sertraline 50 MG Oral Tablet Sertraline HCl 50 MG Sertraline HCl 50 MG 10/18/2020 12:00:00 AM EST 1.0 {tablet} active Sertraline HCl 50 MG eCW1 ([facility] Sertraline 50 MG Oral Tablet Sertraline HCl 50 MG Sertraline HCl 50 MG 10/18/2020 12:00:00 AM EST 1.0 {tablet} active Sertraline HCl 50 MG eCW1 ([facility]) Sertraline 50 MG Oral Tablet Sertraline HCl 50 MG Sertraline HCl 50 MG 10/18/2020 12:00:00 AM EST 1.0 {tablet} active Sertraline HCl 50 MG eCW1 ([facility]) Sertraline 50 MG Oral Tablet Sertraline HCl 50 MG Sertraline HCl 50 MG 10/18/2020 12:00:00 AM EST 1.0 {tablet} active Sertraline HCl 50 MG eCW1 ([facility]) buspirone hydrochloride 15 MG Oral Tablet BusPIRone HC l 15 MG BusPIRone HCl 15 MG 10/18/2020 12:00:00 AM EST 1.0 {tablet} activ e BusPIRone HCl 15 MG eCW1 ([facility]) buspirone hydrochloride 15 MG Oral Tablet BusPIRone HC l 15 MG BusPIRone HCl 15 MG 10/18/2020 12:00:00 AM EST 1.0 {tablet} activ e BusPIRone HCl 15 MG eCW1 ([facility]) buspirone hydrochloride 15 MG Oral Tablet BusPIRone HC l 15 MG BusPIRone HCl 15 MG 10/18/2020 12:00:00 AM EST 1.0 {tablet} activ e BusPIRone HCl 15 MG eCW1 ([facility]) Sertraline 50 MG Oral Tablet Sertraline HCl 50 MG Sertraline HCl 50 MG 10/18/2020 12:00:00 AM EST 1.0 {tablet} active Sertraline HCl 50 MG eCW1 ([facility]) Sertraline 50 MG Oral Tablet Sertraline HCl 50 MG Sertraline HCl 50 MG 10/18/2020 12:00:00 AM EST 1.0 {tablet} active Sertraline HCl 50 MG eCW1 ([facility]) buspirone hydrochloride 7.5 MG Oral Tablet BusPIRone H Cl 7.5 MG BusPIRone HCl 7.5 MG 10/18/2020 12:00:00 AM EST 1.0 {tablet} activ e BusPIRone HCl 7.5 MG eCW1 ([facility]) Sertraline 50 MG Oral Tablet Sertraline HCl 50 MG Sertraline HCl 50 MG 10/18/2020 12:00:00 AM EST 1.0 {tablet} active Sertraline HCl 50 MG eCW1 ([facility]) Sertraline 50 MG Oral Tablet Sertraline HCl 50 MG Sertraline HCl 50 MG 10/18/2020 12:00:00 AM EST 1.0 {tablet} active Sertraline HCl 50 MG eCW1 ([facility]) buspirone hydrochloride 15 MG Oral Tablet BusPIRone HC l 15 MG BusPIRone HCl 15 MG 10/18/2020 12:00:00 AM EST 1.0 {tablet} activ e BusPIRone HCl 15 MG eCW1 ([facility]) Sertraline 50 MG Oral Tablet Sertraline HCl 50 MG Sertraline HCl 50 MG 10/18/2020 12:00:00 AM EST 1.0 {tablet} active Sertraline HCl 50 MG eCW1 ([facility]) buspirone hydrochloride 15 MG Oral Tablet BusPIRone HC l 15 MG BusPIRone HCl 15 MG 10/18/2020 12:00:00 AM EST 1.0 {tablet} activ e BusPIRone HCl 15 MG eCW1 ([facility]) Sertraline 50 MG Oral Tablet Sertraline HCl 50 MG Sertraline HCl 50 MG 10/18/2020 12:00:00 AM EST 1.0 {tablet} active Sertraline HCl 50 MG eCW1 ([facility]) buspirone hydrochloride 15 MG Oral Tablet BusPIRone HC l 15 MG BusPIRone HCl 15 MG 10/18/2020 12:00:00 AM EST 1.0 {tablet} activ e BusPIRone HCl 15 MG eCW1 ([facility]) Sertraline 50 MG Oral Tablet Sertraline HCl 50 MG Sertraline HCl 50 MG 10/18/2020 12:00:00 AM EST 1.0 {tablet} active Sertraline HCl 50 MG eCW1 ([facility]) Sertraline 50 MG Oral Tablet Sertraline HCl 50 MG Sertraline HCl 50 MG 10/18/2020 12:00:00 AM EST 1.0 {tablet} active Sertraline HCl 50 MG eCW1 ([facility]) Sertraline 50 MG Oral Tablet Sertraline HCl 50 MG Sertraline HCl 50 MG 10/18/2020 12:00:00 AM EST 1.0 {tablet} active Sertraline HCl 50 MG eCW1 ([facility]) Sertraline 50 MG Oral Tablet Sertraline HCl 50 MG Sertraline HCl 50 MG 10/18/2020 12:00:00 AM EST 1.0 {tablet} active Sertraline HCl 50 MG eCW1 ([facility]) Sertraline 50 MG Oral Tablet Sertraline HCl 50 MG Sertraline HCl 50 MG 10/18/2020 12:00:00 AM EST 1.0 {tablet} active Sertraline HCl 50 MG eCW1 ([facility]) Sertraline 50 MG Oral Tablet Sertraline HCl 50 MG Sertraline HCl 50 MG 10/18/2020 12:00:00 AM EST 1.0 {tablet} active Sertraline HCl 50 MG eCW1 ([facility]) Sertraline 50 MG Oral Tablet Sertraline HCl 50 MG Sertraline HCl 50 MG 10/18/2020 12:00:00 AM EST 1.0 {tablet} active Sertraline HCl 50 MG eCW1 ([facility]) buspirone hydrochloride 7.5 MG Oral Tablet BusPIRone H Cl 7.5 MG BusPIRone HCl 7.5 MG 10/18/2020 12:00:00 AM EST 1.0 {tablet} activ e BusPIRone HCl 7.5 MG eCW1 ([facility]) buspirone hydrochloride 15 MG Oral Tablet BusPIRone HC l 15 MG BusPIRone HCl 15 MG 10/18/2020 12:00:00 AM EST 1.0 {tablet} activ e BusPIRone HCl 15 MG eCW1 ([facility]) Sertraline 50 MG Oral Tablet Sertraline HCl 50 MG Sertraline HCl 50 MG 10/18/2020 12:00:00 AM EST 1.0 {tablet} active eCW1 ([facility]) Sertraline 50 MG Oral Tablet Sertraline HCl 50 MG Sertraline HCl 50 MG 10/18/2020 12:00:00 AM EST 1.0 {tablet} active Sertraline HCl 50 MG eCW1 ([facility]) Sertraline 50 MG Oral Tablet Sertraline HCl 50 MG Sertraline HCl 50 MG 10/18/2020 12:00:00 AM EST 1.0 {tablet} active Sertraline HCl 50 MG eCW1 ([facility]) buspirone hydrochloride 7.5 MG Oral Tablet BusPIRone H Cl 7.5 MG BusPIRone HCl 7.5 MG 10/18/2020 12:00:00 AM EST 1.0 {tablet} activ e BusPIRone HCl 7.5 MG eCW1 ([facility]) Sertraline 50 MG Oral Tablet Sertraline HCl 50 MG Sertraline HCl 50 MG 10/18/2020 12:00:00 AM EST 1.0 {tablet} active Sertraline HCl 50 MG eCW1 ([facility]) Sertraline 50 MG Oral Tablet Sertraline HCl 50 MG Sertraline HCl 50 MG 10/18/2020 12:00:00 AM EST 1.0 {tablet} active Sertraline HCl 50 MG eCW1 ([facility]) Sertraline 50 MG Oral Tablet Sertraline HCl 50 MG Sertraline HCl 50 MG 10/18/2020 12:00:00 AM EST 1.0 {tablet} active Sertraline HCl 50 MG eCW1 ([facility]) Sertraline 50 MG Oral Tablet Sertraline HCl 50 MG Sertraline HCl 50 MG 10/18/2020 12:00:00 AM EST 1.0 {tablet} active Sertraline HCl 50 MG eCW1 ([facility]) Sertraline 50 MG Oral Tablet Sertraline HCl 50 MG Sertraline HCl 50 MG 10/18/2020 12:00:00 AM EST 1.0 {tablet} active Sertraline HCl 50 MG eCW1 ([facility]) Sertraline 50 MG Oral Tablet Sertraline HCl 50 MG Sertraline HCl 50 MG 10/18/2020 12:00:00 AM EST 1.0 {tablet} active Sertraline HCl 50 MG eCW1 ([facility]) Sertraline 50 MG Oral Tablet Sertraline HCl 50 MG Sertraline HCl 50 MG 10/18/2020 12:00:00 AM EST 1.0 {tablet} active Sertraline HCl 50 MG eCW1 ([facility]) buspirone hydrochloride 15 MG Oral Tablet BusPIRone HC l 15 MG BusPIRone HCl 15 MG 10/18/2020 12:00:00 AM EST 1.0 {tablet} activ e BusPIRone HCl 15 MG eCW1 ([facility]) Sertraline 50 MG Oral Tablet Sertraline HCl 50 MG Sertraline HCl 50 MG 10/18/2020 12:00:00 AM EST 1.0 {tablet} active Sertraline HCl 50 MG eCW1 ([facility]) buspirone hydrochloride 7.5 MG Oral Tablet BusPIRone H Cl 7.5 MG BusPIRone HCl 7.5 MG 10/18/2020 12:00:00 AM EST 1.0 {tablet} activ e BusPIRone HCl 7.5 MG eCW1 ([facility]) Sertraline 50 MG Oral Tablet Sertraline HCl 50 MG Sertraline HCl 50 MG 10/18/2020 12:00:00 AM EST 1.0 {tablet} active Sertraline HCl 50 MG eCW1 ([facility]) Sertraline 50 MG Oral Tablet Sertraline HCl 50 MG Sertraline HCl 50 MG 10/18/2020 12:00:00 AM EST 1.0 {tablet} active Sertraline HCl 50 MG eCW1 ([facility]) Sertraline 50 MG Oral Tablet Sertraline HCl 50 MG Sertraline HCl 50 MG 10/18/2020 12:00:00 AM EST 1.0 {tablet} active Sertraline HCl 50 MG eCW1 ([facility]) Sertraline 50 MG Oral Tablet Sertraline HCl 50 MG Sertraline HCl 50 MG 10/18/2020 12:00:00 AM EST 1.0 {tablet} active Sertraline HCl 50 MG eCW1 ([facility]) Sertraline 50 MG Oral Tablet Sertraline HCl 50 MG Sertraline HCl 50 MG 10/18/2020 12:00:00 AM EST 1.0 {tablet} active Sertraline HCl 50 MG eCW1 ([facility]) Sertraline 50 MG Oral Tablet Sertraline HCl 50 MG Sertraline HCl 50 MG 10/18/2020 12:00:00 AM EST 1.0 {tablet} active Sertraline HCl 50 MG eCW1 ([facility]) Sertraline 50 MG Oral Tablet Sertraline HCl 50 MG Sertraline HCl 50 MG 10/18/2020 12:00:00 AM EST 1.0 {tablet} active Sertraline HCl 50 MG eCW1 ([facility]) Sertraline 50 MG Oral Tablet Sertraline HCl 50 MG Sertraline HCl 50 MG 10/18/2020 12:00:00 AM EST 1.0 {tablet} active Sertraline HCl 50 MG eCW1 ([facility]) buspirone hydrochloride 15 MG Oral Tablet BusPIRone HC l 15 MG BusPIRone HCl 15 MG 10/18/2020 12:00:00 AM EST 1.0 {tablet} activ e BusPIRone HCl 15 MG eCW1 ([facility]) buspirone hydrochloride 7.5 MG Oral Tablet BusPIRone H Cl 7.5 MG BusPIRone HCl 7.5 MG 10/18/2020 12:00:00 AM EST 1.0 {tablet} activ e BusPIRone HCl 7.5 MG eCW1 ([facility]) Sertraline 50 MG Oral Tablet Sertraline HCl 50 MG Sertraline HCl 50 MG 10/18/2020 12:00:00 AM EST 1.0 {tablet} active Sertraline HCl 50 MG eCW1 ([facility]) buspirone hydrochloride 7.5 MG Oral Tablet BusPIRone H Cl 7.5 MG BusPIRone HCl 7.5 MG 10/18/2020 12:00:00 AM EST 1.0 {tablet} activ e BusPIRone HCl 7.5 MG eCW1 ([facility]) Sertraline 50 MG Oral Tablet Sertraline HCl 50 MG Sertraline HCl 50 MG 10/18/2020 12:00:00 AM EST 1.0 {tablet} active Sertraline HCl 50 MG eCW1 ([facility]) Sertraline 50 MG Oral Tablet Sertraline HCl 50 MG Sertraline HCl 50 MG 10/18/2020 12:00:00 AM EST 1.0 {tablet} active Sertraline HCl 50 MG eCW1 ([facility]) Sertraline 50 MG Oral Tablet Sertraline HCl 50 MG Sertraline HCl 50 MG 10/18/2020 12:00:00 AM EST 1.0 {tablet} active Sertraline HCl 50 MG eCW1 ([facility]) Sertraline 50 MG Oral Tablet Sertraline HCl 50 MG Sertraline HCl 50 MG 10/18/2020 12:00:00 AM EST 1.0 {tablet} active Sertraline HCl 50 MG eCW1 ([facility]) Sertraline 50 MG Oral Tablet Sertraline HCl 50 MG Sertraline HCl 50 MG 10/18/2020 12:00:00 AM EST 1.0 {tablet} active Sertraline HCl 50 MG eCW1 ([facility]) Sertraline 50 MG Oral Tablet Sertraline HCl 50 MG Sertraline HCl 50 MG 10/18/2020 12:00:00 AM EST 1.0 {tablet} active Sertraline HCl 50 MG eCW1 ([facility]) Sertraline 50 MG Oral Tablet Sertraline HCl 50 MG Sertraline HCl 50 MG 10/18/2020 12:00:00 AM EST 1.0 {tablet} active Sertraline HCl 50 MG eCW1 ([facility]) buspirone hydrochloride 15 MG Oral Tablet BusPIRone HC l 15 MG BusPIRone HCl 15 MG 10/18/2020 12:00:00 AM EST 1.0 {tablet} activ e BusPIRone HCl 15 MG eCW1 ([facility]) Sertraline 50 MG Oral Tablet Sertraline HCl 50 MG Sertraline HCl 50 MG 10/18/2020 12:00:00 AM EST 1.0 {tablet} active Sertraline HCl 50 MG eCW1 ([facility]) Sertraline 50 MG Oral Tablet Sertraline HCl 50 MG Sertraline HCl 50 MG 10/18/2020 12:00:00 AM EST 1.0 {tablet} active Sertraline HCl 50 MG eCW1 ([facility]) Sertraline 50 MG Oral Tablet Sertraline HCl 50 MG Sertraline HCl 50 MG 10/18/2020 12:00:00 AM EST 1.0 {tablet} active Sertraline HCl 50 MG eCW1 ([facility]) Sertraline 50 MG Oral Tablet Sertraline HCl 50 MG Sertraline HCl 50 MG 10/18/2020 12:00:00 AM EST 1.0 {tablet} active Sertraline HCl 50 MG eCW1 ([facility]) Sertraline 50 MG Oral Tablet Sertraline HCl 50 MG Sertraline HCl 50 MG 10/18/2020 12:00:00 AM EST 1.0 {tablet} active Sertraline HCl 50 MG eCW1 ([facility]) Sertraline 50 MG Oral Tablet Sertraline HCl 50 MG Sertraline HCl 50 MG 10/18/2020 12:00:00 AM EST 1.0 {tablet} active Sertraline HCl 50 MG eCW1 ([facility]) Sertraline 50 MG Oral Tablet Sertraline HCl 50 MG Sertraline HCl 50 MG 10/18/2020 12:00:00 AM EST 1.0 {tablet} active Sertraline HCl 50 MG [facility] Sertraline 50 MG Oral Tablet Sertraline HCl 50 MG Sertraline HCl 50 MG 10/18/2020 12:00:00 AM EST 1.0 {tablet} active Sertraline HCl 50 MG [facility] Sertraline 50 MG Oral Tablet Sertraline HCl 50 MG Sertraline HCl 50 MG 10/18/2020 12:00:00 AM EST 1.0 {tablet} active Sertraline HCl 50 MG [facility] Sertraline 50 MG Oral Tablet Sertraline HCl 50 MG Sertraline HCl 50 MG 10/18/2020 12:00:00 AM EST 1.0 {tablet} active Sertraline HCl 50 MG [facility] Sertraline 50 MG Oral Tablet Sertraline HCl 50 MG Sertraline HCl 50 MG 10/18/2020 12:00:00 AM EST 1.0 {tablet} active Sertraline HCl 50 MG [facility] Sertraline 50 MG Oral Tablet Sertraline HCl 50 MG Sertraline HCl 50 MG 10/18/2020 12:00:00 AM EST 1.0 {tablet} active Sertraline HCl 50 MG [facility] Sertraline 50 MG Oral Tablet Sertraline HCl 50 MG Sertraline HCl 50 MG 10/18/2020 12:00:00 AM EST 1.0 {tablet} active Sertraline HCl 50 MG [facility] buspirone hydrochloride 15 MG Oral Tablet BusPIRone HC l 15 MG BusPIRone HCl 15 MG 10/18/2020 12:00:00 AM EST 1.0 {tablet} activ e BusPIRone HCl 15 MG [facility]) Sertraline 50 MG Oral Tablet Sertraline HCl 50 MG Sertraline HCl 50 MG 10/18/2020 12:00:00 AM EST 1.0 {tablet} active Sertraline HCl 50 MG [facility]) buspirone hydrochloride 15 MG Oral Tablet BusPIRone HC l 15 MG BusPIRone HCl 15 MG 10/18/2020 12:00:00 AM EST 1.0 {tablet} activ e BusPIRone HCl 15 MG [facility]) Sertraline 50 MG Oral Tablet Sertraline HCl 50 MG Sertraline HCl 50 MG 10/18/2020 12:00:00 AM EST 1.0 {tablet} active Sertraline HCl 50 MG [facility] Sertraline 50 MG Oral Tablet Sertraline HCl 50 MG Sertraline HCl 50 MG 10/18/2020 12:00:00 AM EST 1.0 {tablet} active Sertraline HCl 50 MG [facility]) Sertraline 50 MG Oral Tablet Sertraline HCl 50 MG Sertraline HCl 50 MG 10/18/2020 12:00:00 AM EST 1.0 {tablet} active Sertraline HCl 50 MG [facility]) Sertraline 50 MG Oral Tablet Sertraline HCl 50 MG Sertraline HCl 50 MG 10/18/2020 12:00:00 AM EST 1.0 {tablet} active Sertraline HCl 50 MG [facility] Sertraline 50 MG Oral Tablet Sertraline HCl 50 MG Sertraline HCl 50 MG 10/18/2020 12:00:00 AM EST 1.0 {tablet} active Sertraline HCl 50 MG [facility]) Sertraline 50 MG Oral Tablet Sertraline HCl 50 MG Sertraline HCl 50 MG 10/18/2020 12:00:00 AM EST 1.0 {tablet} active Sertraline HCl 50 MG [facility]) buspirone hydrochloride 15 MG Oral Tablet BusPIRone HC l 15 MG BusPIRone HCl 15 MG 10/18/2020 12:00:00 AM EST 1.0 {tablet} activ e BusPIRone HCl 15 MG [facility]1 [facility]) Sertraline 50 MG Oral Tablet Sertraline HCl 50 MG Sertraline HCl 50 MG 10/18/2020 12:00:00 AM EST 1.0 {tablet} active Sertraline HCl 50 MG [facility]1 [facility]) buspirone hydrochloride 15 MG Oral Tablet BusPIRone HC l 15 MG BusPIRone HCl 15 MG 10/18/2020 12:00:00 AM EST 1.0 {tablet} activ e BusPIRone HCl 15 MG [facility]CW1 [facility]) buspirone hydrochloride 15 MG Oral Tablet BusPIRone HC l 15 MG BusPIRone HCl 15 MG 10/18/2020 12:00:00 AM EST 1.0 {tablet} activ e BusPIRone HCl 15 MG [facility]1 [facility]) Sertraline 50 MG Oral Tablet Sertraline HCl 50 MG Sertraline HCl 50 MG 10/18/2020 12:00:00 AM EST 1.0 {tablet} active Sertraline HCl 50 MG [facility]1 [facility]) Sertraline 50 MG Oral Tablet Sertraline HCl 50 MG Sertraline HCl 50 MG 10/18/2020 12:00:00 AM EST 1.0 {tablet} active Sertraline HCl 50 MG [facility]1 [facility]) Sertraline 50 MG Oral Tablet Sertraline HCl 50 MG Sertraline HCl 50 MG 10/18/2020 12:00:00 AM EST 1.0 {tablet} active Sertraline HCl 50 MG [facility]CW1 [facility]) Sertraline 50 MG Oral Tablet Sertraline HCl 50 MG Sertraline HCl 50 MG 10/18/2020 12:00:00 AM EST 1.0 {tablet} active Sertraline HCl 50 MG [facility]CW1 [facility]) Sertraline 50 MG Oral Tablet Sertraline HCl 50 MG Sertraline HCl 50 MG 10/18/2020 12:00:00 AM EST 1.0 {tablet} active Sertraline HCl 50 MG [facility]CW1 [facility]) Sertraline 50 MG Oral Tablet Sertraline HCl 50 MG Sertraline HCl 50 MG 10/18/2020 12:00:00 AM EST 1.0 {tablet} active Sertraline HCl 50 MG [facility]CW1 [facility]) Sertraline 50 MG Oral Tablet Sertraline HCl 50 MG Sertraline HCl 50 MG 10/18/2020 12:00:00 AM EST 1.0 {tablet} active Sertraline HCl 50 MG [facility]CW1 [facility]) buspirone hydrochloride 15 MG Oral Tablet BusPIRone HC l 15 MG BusPIRone HCl 15 MG 10/18/2020 12:00:00 AM EST 1.0 {tablet} activ e BusPIRone HCl 15 MG [facility]CW1 [facility]) buspirone hydrochloride 7.5 MG Oral Tablet BusPIRone H Cl 7.5 MG BusPIRone HCl 7.5 MG 10/18/2020 12:00:00 AM EST 1.0 {tablet} activ e BusPIRone HCl 7.5 MG [facility]CW1 [facility]) Sertraline 50 MG Oral Tablet Sertraline HCl 50 MG Sertraline HCl 50 MG 10/18/2020 12:00:00 AM EST 1.0 {tablet} active Sertraline HCl 50 MG [facility]CW1 [facility]) Sertraline 50 MG Oral Tablet Sertraline HCl 50 MG Sertraline HCl 50 MG 10/18/2020 12:00:00 AM EST 1.0 {tablet} active Sertraline HCl 50 MG [facility]CW1 [facility]) Acetaminophen 325 MG / Hydrocodone Luis trate 5 MG Oral Tablet Hydrocodone- Acetaminophen 5-325 MG Hydrocodone-Acetaminophen 5-325 MG 09/19/2020 12:00:00 AM EST 1.0 {tablet_as_needed} active Hydrocodone-Acetaminophen 5-325 MG eCW1 [facility]) Acetaminophen 325 MG / Hydrocodone Luis trate 5 MG Oral Tablet Hydrocodone- Acetaminophen 5-325 MG Hydrocodone-Acetaminophen 5-325 MG 09/19/2020 12:00:00 AM EST 1.0 {tablet_as_needed} active Hydrocodone-Acetaminophen 5-325 MG eCW1 [facility]) Acetaminophen 325 MG / Hydrocodone Luis trate 5 MG Oral Tablet Hydrocodone- Acetaminophen 5-325 MG Hydrocodone-Acetaminophen 5-325 MG 09/19/2020 12:00:00 AM EST 1.0 {tablet_as_needed} active Hydrocodone-Acetaminophen 5-325 MG eCW1 [facility]) Acetaminophen 325 MG / Hydrocodone Luis trate 5 MG Oral Tablet Hydrocodone- Acetaminophen 5-325 MG Hydrocodone-Acetaminophen 5-325 MG 09/19/2020 12:00:00 AM EST 1.0 {tablet_as_needed} active Hydrocodone-Acetaminophen 5-325 MG eCW1 [facility]) Acetaminophen 325 MG / Hydrocodone Luis trate 5 MG Oral Tablet Hydrocodone- Acetaminophen 5-325 MG Hydrocodone-Acetaminophen 5-325 MG 09/19/2020 12:00:00 AM EST 1.0 {tablet_as_needed} active Hydrocodone-Acetaminophen 5-325 MG eCW1 [facility]) Acetaminophen 325 MG / Hydrocodone Luis trate 5 MG Oral Tablet Hydrocodone- Acetaminophen 5-325 MG Hydrocodone-Acetaminophen 5-325 MG 09/05/2020 12:00:00 AM EDT 1.0 {tablet_as_needed} active Hydrocodone-Acetaminophen 5-325 MG eCW1 [facility]) Acetaminophen 325 MG / Hydrocodone Luis trate 5 MG Oral Tablet Hydrocodone- Acetaminophen 5-325 MG Hydrocodone-Acetaminophen 5-325 MG 09/05/2020 12:00:00 AM EDT 1.0 {tablet_as_needed} active Hydrocodone-Acetaminophen 5-325 MG eCW1 [facility]) Acetaminophen 325 MG / Hydrocodone Luis trate 5 MG Oral Tablet Hydrocodone- Acetaminophen 5-325 MG Hydrocodone-Acetaminophen 5-325 MG 09/05/2020 12:00:00 AM EDT 1.0 {tablet_as_needed} active Hydrocodone-Acetaminophen 5-325 MG eCW1 [facility]) Acetaminophen 325 MG / Hydrocodone Luis trate 5 MG Oral Tablet Hydrocodone- Acetaminophen 5-325 MG Hydrocodone-Acetaminophen 5-325 MG 08/26/2020 12:00:00 AM EDT 1.0 {tablet_as_needed} active Hydrocodone-Acetaminophen 5-325 MG eCW1 [facility]) Naproxen 500 MG Oral Tablet naproxen (NAPROSYN) 500 MG tablet naproxen (NAPROSYN) 500 MG tablet 500 mg Oral aborted Take 500 mg by mouth as needed [facility] Insurance Providers Payer name Policy type / Coverage type Policy ID Covered green party ID Covered green party's relationship to [place] Policy [place] Plan Information [facility] [id number] [facility] PPO POS [id number] [facility] PPO POS [id number] [facility]/POS [id number] MVP H [id number] Self [id number] MVP EXCHANGE U [id number] Self [id number] [facility]/PP[facility]/POS [id number] EXCELLUS H [id number] Self [id number] BCBS GENERIC C [id number] Self [id number] [facility] PPO POS [id number] Blue Cross Blue Shield P [id number] SELF [id number] BCBS FEDERAL EMPLOYEE PROGRAM [id number] SP [id number] EXCELLUS BCBS [id number] xxxxxxxxx 04 EXCELLUS BCBS [id number] Jarett [id number] EXCELLUS C [id number] Self [id number] BLUE CARD C [id number] Self [id number] [facility] [id number] FFS Self Pay [id number] Self [id number] FFS Self Pay [id number] Self [id number] ANSI-Commercial [id number] ANSI-Commercial [id number] ANSI-Not a Secondary Insurance [id number] Federal Plan Commercial [id number] Self [id number] ANSI-Not a Secondary Insurance [id number] EXCELLUS BCBS PI PI BCBS Federal Plan Commercial [id number] Self [id number] ANSI-Not a Secondary Insurance [id number] ANSI-Not a Secondary Insurance [id number] ANSI-Not a Secondary Insurance [id number] ANSI-Not a Secondary Insurance [id number] ANSI-Not a Secondary Insurance [id number] ANSI-Not a Secondary Insurance [id number] [facility] Federal Plan R [id number] 18 [id number] ANSI-Not a Secondary Insurance [id number] [place] 306/806 [id number] SP [id number] SELF PAY ONLY [place]BS [place] PPO 302/307 [id number] SP [id number] BCBS/[place] Commercial [id number] Self [id number] BCBS/[place] Commercial [id number] Self [id number] BCBS/[place] Commercial [id number] Self [id number] BCBS/[place] Commercial [id number] Self [id number] BCBS [place] PPO 302/307 [id number] SP [id number] [place]CELLUS BCBS B [id number] S [id number] EXCELLUS BCBS [facility] [id number] SP [id number] BCBS OF [place] 121/621 [id number] SP [id number] EXCELLUS BCBS [facility] [id number] SP [id number] [place]BS [place] PPO 302/307 [id number] SP [id number] [place]BS [place] PPO 302/307 [id number] SP [id number] BC BS [place] FEDERAL [id number] SP [id number] BCBS [facility] EMPLOYEE PROGRAM [id number] SP [id number] 000 [facility] [id number] SP [id number] OTHER W.[employer]EMPLOYER [id number] SP [id number] BC BS [place] FEDERAL B [id number] S [id number] ANSI-Commercial [id number] ANSI-Commercial [id number] ANSI-Commercial [id number] ANSI-Commercial [id number] ANSI-Commercial [id number] ANSI-Commercial [id number] ANSI-Commercial [id number] ANSI-Commercial [id number] ANSI-Commercial [id number] ANSI-Commercial [id number] ANSI-Commercial [id number] ANSI-Commercial [id number] ANSI-Commercial [id number] [facility] FEDERAL EMPLOYEE PROGRAM [id number] SP [id number] [facility] MARGARETTE PINEDO PPO 302/307 [id number] SP [id number] Problems, Conditions, and Diagnoses Code Display Name Description Problem Type Effective Dates Data Source(s) Z5320 Procedure and treatment not carried out because of patient's decision for unspecified reasons Procedure and treatment not carried out because of patient's decision for unspecified reasons Diagnosis 06/17/2021 09:29:00 PM EDT [facility] R0789 Other chest pain Other chest pain Diagnosis 06/17/2021 09 :29:00 PM EDT [facility] R59.0 Localized enlarged lymph nodes Localized enlarged lymp h nodes Diagnosis 08/28/2020 10:47:00 AM EDT [facility] M54.2 Cervicalgia Cervicalgia Diagnosis 08/05/2020 11:58:46 AM EDT [facility] R59.0 Localized enlarged lymph nodes Localized enlarged lymp h nodes Diagnosis 08/05/2020 11:58:46 AM EDT [facility] R06.89 Other abnormalities of breathing Other abnormali ties of breathing Diagnosis 07/23/2020 03:49:47 PM EDT [facility] R06.00 Dyspnea, unspecified Dyspnea, unspecified Diagnosis 07/23/2020 03:49:47 PM EDT [facility] G89.29 [id number] Other chronic pain Problem 07/10/2021 12:00: 00 AM EDT [facility] R06.02 Dyspnea Dyspnea Problem 06/25/2021 12:00:00 AM ED T [facility] ([facility], ) R05 Cough Cough Problem 06/25/2021 12:00:00 AM ED T [facility] ([facility], ) G47.33 Obstructive sleep apnea syndrome Obstructive sle ep apnea syndrome Problem 06/25/2021 12:00:00 AM EDT [facility] ([facility] ) G47.33 [id number] EDEN (obstructive sleep apnea) Problem 05/30/2021 12:00:00 AM EDT [facility]CW[facility] R40.0 [id number] Daytime somnolence Problem 04/11/2021 12:0 0:00 AM EDT [facility]CW1 [facility]) E03.9 [id number] Hypothyroidism, unspecified type Problem 03/20/2021 12:00:00 AM EDT eCW1 [facility]) L93.2 [id number] Other local lupus erythematosus Problem 10/18/2020 12:00:00 AM EST eCW1 [facility]) F41.9 [id number] Anxiety Problem 10/18/2020 12:00:00 AM ES T eCW1 ([facility]) M54.2 Cervicalgia Cervicalgia [id number] 08/05/2020 12:00:00 AM EDT [facility] R59.0 Lymphadenopathy, postauricular Lymphadenopathy, postau ricular [id number] 08/05/2020 12:00:00 AM EDT [facility] Surgeries/Procedures Procedure Description Date Indications Data Source(s) OFFICE OUTPATIENT VISIT 15 MINUTES 08/21/2021 12:00:00 AM EDT [facility] ([facility], ) OFFICE OUTPATIENT VISIT 15 MINUTES 08/07/2021 12:00:00 AM EDT [facility] ([facility], ) OFFICE OUTPATIENT VISIT 25 MINUTES 08/07/2021 12:00:00 AM EDT [facility] ([facility], ) LARYNGOSCOPY FLEXIBLE FIBEROPTIC DIAGNOSTIC 07/28/2021 12:00:00 AM EDT [facility] ([facility]) OFFICE OUTPATIENT NEW 45 MINUTES 07/28/2021 12:00:00 A M EDT [facility] ([facility], ) OFFICE OUTPATIENT VISIT 15 MINUTES 07/22/2021 12:00:00 AM EDT [facility] ([facility], [facility]) Bronchospasm Evaluation 07/18/2021 12:00:00 AM EDT [facility] ([facility], ) Plethysmography Determination Lung Volumes & Per Airway Resi st 07/18/2021 12:00:00 AM EDT [facility] ([facility], ) DIFFUSING CAPACITY 07/18/2021 12:00:00 AM EDT [facility] ([facility], ) Spirometry 06/25/2021 12:00:00 AM EDT M [facility]ENT ([facility]) OFFICE OUTPATIENT NEW 45 MINUTES 06/25/2021 12:00:00 A M EDT [facility] ([facility], ) OFFICE OUTPATIENT VISIT 25 MINUTES 06/10/2021 12:00:00 AM EDT [facility] ([facility], [facility]) OFFICE OUTPATIENT NEW 45 MINUTES 06/04/2021 12:00:00 A M EDT [facility] ([facility], ) OFFICE OUTPATIENT VISIT 15 MINUTES 05/22/2021 12:00:00 AM EDT [facility] ([facility]) ECG ROUTINE ECG W/LEAST 12 LDS W/I&R 05/13/2021 12:00: 00 AM EDT [facility]CW[facility] OFFICE OUTPATIENT VISIT 10 MINUTES 04/24/2021 12:00:00 AM EDT [facility] ([facility]) OFFICE OUTPATIENT VISIT 15 MINUTES 03/27/2021 12:00:00 AM EDT [facility] ([facility]) MRI Lower Extremity Any Joint 03/20/2021 12:00:00 AM E DT [facility] ([facility]) OFFICE OUTPATIENT VISIT 25 MINUTES 02/26/2021 12:00:00 AM EDT [facility] ([facility]) OFFICE OUTPATIENT VISIT 25 MINUTES 02/26/2021 12:00:00 AM EDT [facility] ([facility]) Apply Cast Short Leg Walking 02/10/2021 12:00:00 AM ED T [facility] ([facility]) OFFICE OUTPATIENT VISIT 25 MINUTES 02/10/2021 12:00:00 AM EDT [facility] ([facility]) RADEX ANKLE COMPLETE MINIMUM 3 VIEWS 02/06/2021 12:00: 00 AM EDT [facility] ([facility]) OFFICE OUTPATIENT VISIT 25 MINUTES 02/06/2021 12:00:00 AM EDT [facility] ([facility]) OFFICE OUTPATIENT VISIT 15 MINUTES 12/25/2020 12:00:00 AM EST [facility] ([facility], [facility]) NUCLEAR ANTIGEN ANTIBODY 07/25/2020 12:0 0:00 AM EDT - 07/25/2020 12:00:00 AM EDT [facility] ([facility]) NUCLEAR ANTIGEN ANTIBODY 07/25/2020 12:0 0:00 AM EDT - 07/25/2020 12:00:00 AM EDT [facility] ([facility]) NUCLEAR ANTIGEN ANTIBODY 07/25/2020 12:0 0:00 AM EDT - 07/25/2020 12:00:00 AM EDT [facility] ([facility]) NUCLEAR ANTIGEN ANTIBODY 07/25/2020 12:0 0:00 AM EDT - 07/25/2020 12:00:00 AM EDT [facility] ([facility]) NUCLEAR ANTIGEN ANTIBODY 07/25/2020 12:0 0:00 AM EDT - 07/25/2020 12:00:00 AM EDT [facility] ([facility]) NUCLEAR ANTIGEN ANTIBODY 07/25/2020 12:0 0:00 AM EDT - 07/25/2020 12:00:00 AM EDT [facility] ([facility]) NUCLEAR ANTIGEN ANTIBODY 07/25/2020 12:0 0:00 AM EDT - 07/25/2020 12:00:00 AM EDT [facility] ([facility]) DNA ANTIBODY 07/25/2020 12:00:00 AM EDT - 07/25/2020 1 2:00:00 AM EDT [facility] ([facility]) NUCLEAR ANTIGEN ANTIBODY 07/25/2020 12:0 0:00 AM EDT - 07/25/2020 12:00:00 AM EDT [facility] ([facility]) OFFICE/OUTPATIENT VISIT, NEW 07/25/2020 12:00:00 AM EDT - 07/25/2020 12:00:00 AM EDT [facility] ([facility]) SACROILIAC JOINTS X-RAY, MORE THAN 3 VIEWS 07/25/2020 12:00:00 AM EDT - 07/25/2020 12:00:00 AM EDT [facility] COMPLEMENT, ANTIGEN 07/25/2020 12:00:00 AM EDT - 07/25 12:00:00 AM EDT [facility] ([facility]) COMPLEMENT, ANTIGEN 07/25/2020 12:00:00 AM EDT - 07/25 12:00:00 AM EDT [facility] ([facility]) CCP ANTIBODY 07/25/2020 12:00:00 AM EDT - 07/25/2020 1 2:00:00 AM EDT [facility] ([facility]) RHEUMATOID FACTOR, QUANT 07/25/2020 12:0 0:00 AM EDT - 07/25/2020 12:00:00 AM EDT [facility] ([facility]) ASSAY OF BLOOD/URIC ACID 07/25/2020 12:0 0:00 AM EDT - 07/25/2020 12:00:00 AM EDT [facility] ([facility]) ANTINUCLEAR ANTIBODIES (JYOTI) Titer By SWT 07/25/2020 12:00:00 AM EDT - 07/25/2020 12:00:00 AM EDT [facility] ASSAY OF SERUM ALBUMIN 07/25/2020 12:00: 00 AM EDT - 07/25/2020 12:00:00 AM EDT [facility] ([facility]) ASSAY OF CK (CPK) 07/25/2020 12:00:00 AM EDT - 020 12:00:00 AM EDT [facility] ([facility]) ALANINE AMINO (ALT) (SGPT) 07/25/2020 12 :00:00 AM EDT - 07/25/2020 12:00:00 AM EDT [facility] ([facility]) TRANSFERASE (AST) (SGOT) 07/25/2020 12:0 0:00 AM EDT - 07/25/2020 12:00:00 AM EDT [facility] ([facility]) ASSAY OF CREATININE 07/25/2020 12:00:00 AM EDT - 07/25 12:00:00 AM EDT [facility] ([facility]) C-REACTIVE PROTEIN 07/25/2020 12:00:00 AM EDT - 2019 12:00:00 AM EDT [facility] ([facility]) RBC SED RATE, AUTOMATED 07/25/2020 12:00 :00 AM EDT - 07/25/2020 12:00:00 AM EDT [facility] ([facility]) COMPLETE CBC W/AUTO DIFF WBC 07/25/2020 12:00:00 AM EDT - 07/25/2020 12:00:00 AM EDT [facility] ([facility]) ROUTINE VENIPUNCTURE 07/25/2020 12:00:00 AM EDT - 07/25/2020 12:00:00 AM EDT [facility] ([facility]) Results ID Date Data Source [id number] 07/22/2021 12:00:00 AM EDT [facility] Name Value Range Interpretation Code Description Data Jenn rce(s) Supporting Document(s) SARS-CoV2 Rapid Antigen Negative [facility] This lab was reported by [facility]. ID Date Data Source [id number] 11/24/2020 12:00:00 AM EST [facility] Name Value Range Interpretation Code Description Data Jenn rce(s) Supporting Document(s) SARS coronavirus 2 Ag Negative [facility] This lab was ordered by [facility] and reported by [facility]. ID Date Data Source TOTAL IRON BINDING CAPACIT 07/17/2021 12:00:00 AM EDT [facility] Name Value Range Interpretation Code Description Data Jenn rce(s) Supporting Document(s) 17.7 13.2-45.0 PERCENT SATURATION eCW1 ([facility]) 475 250-450 TOTAL IRON BINDING CAPACI TY eCW[facility]) 84 50-170 IRON (FE) eCW1 ([facility]) ID Date Data Source Reticulocyte Count Sysmex 07/17/2021 12:00:00 AM EDT eCW1 ([facility]) Name Value Range Interpretation Code Description Data Jenn rce(s) Supporting Document(s) 1.5 0.5-1.5 RETICULOCYTE % [facility]CW1 [facility]) ID Date Data Source MAGNESIUM LEVEL 07/17/2021 12:00:00 AM EDT eCW1 ([facility]) Name Value Range Interpretation Code Description Data Jenn rce(s) Supporting Document(s) 1.7 1.8-2.4 MAGNESIUM LEVEL eCW1 ([facility]) ID Date Data Source FERRITIN 07/17/2021 12:00:00 AM EDT eCW1 ([facility]) Name Value Range Interpretation Code Description Data Jenn rce(s) Supporting Document(s) 10 8-252 FERRITIN eCW1 ([facility]) ID Date Data Source Comprehensive Metabolic Profile (CMP) 07/17/2021 12:00:00 AM EDT eCW1 [facility]) Name Value Range Interpretation Code Description Data Jenn rce(s) Supporting Document(s) 0.74 0.55-1.30 CREATININE FOR GFR eCW1 ([facility]) > 60.0 >58 GLOMERULAR FILTRATION RATE eCW 1 ([facility]) 9 7-18 BLOOD UREA NITROGEN eCW1 (Count includes the [facility]) 108 70-100 GLUCOSE, FASTING eCW1 ([facility]) 8.6 8.5-10.1 CALCIUM LEVEL eCW1 ([facility]) 139 136-145 SODIUM LEVEL eCW1 ([facility]) 25 21-32 CARBON DIOXIDE LEVEL eCW1 ([facility]) 108 98-107 CHLORIDE LEVEL eCW1 ([facility]) 4.8 3.5-5.1 POTASSIUM SERUM eCW1 ([facility]) 8 7-37 AST/SGOT eCW1 ([facility]) 0.2 0.2-1.0 BILIRUBIN,TOTAL eCW1 ([facility]) 35 45-117 ALKALINE PHOSPHATASE eCW1 ([facility]) 17 12-78 ALT/SGPT eCW1 ([facility]) 2.7 3.2-5.2 ALBUMIN eCW1 ([facility]) 6.3 6.4-8.2 TOTAL PROTEIN eCW1 ([facility]) 0.8 1.2-2.2 ALBUMIN/GLOBULIN RATIO eCW1 ([facility]) ID Date Data Source CPK CREATINE PHOSPHOKINASE 07/17/2021 12:00:00 AM EDT eCW1 ( [facility]) Name Value Range Interpretation Code Description Data Jenn rce(s) Supporting Document(s) 41 69-192 CPK CREATINE PHOSPHOKINASE eCW 1 ([facility]) ID Date Data Source CBC - Complete Blood Count 07/17/2021 12:00:00 AM EDT eCW1 ( Critical [facility]) Name Value Range Interpretation Code Description Data Jenn rce(s) Supporting Document(s) 7.9 4.0-10.0 WHITE BLOOD COUNT eCW1 ([facility]) 89.4 80.0-96.0 MEAN CORPUSCULAR VOLUME e CW1 ([facility]) 3.77 4.00-5.40 RED BLOOD COUNT eCW1 ([facility]) 33.7 36.0-47.0 HEMATOCRIT eCW1 ([facility]) 10.8 12.0-15.5 HEMOGLOBIN eCW1 ([facility]) 28.6 27.0-33.0 MEAN CORPUSCULAR HEMOGLOB IN eCW1 ([facility]) 32.0 32.0-36.5 MEAN CORPUSCULAR HGB CONC eCW1 ([facility]) 262 150-450 PLATELET COUNT, AUTOMATED eCW1 ([facility]) 16.2 11.5-14.5 RED CELL DISTRIBUTION WID TH eCW1 ([facility]) ID Date Data Source [id number] 07/04/2021 06:42:03 PM EDT [facility] Name Value Range Interpretation Code Description Data Jenn rce(s) Supporting Document(s) TOTAL PROTEIN 6.8 g/dL (6.4-8.2) Laboratory [facility] of [facility] - CORE TOTAL PROTEIN EPP 6.8 g/dL (6.4-8.2) [facility] [place] - CORE ALBUMIN CALC 3.9 g/dL (3.9-5.1) [facility] - CORE ALPHA 1 CALC 0.2 g/dL (0.1-0.3) [facility] [place] - CORE ALPHA 2 CALC 1.0 g/dL (0.4-1.0) [facility] [place] - CORE BETA CALC 1.0 g/dL (0.5-1.1) [facility] [place] [facility] [place] - CORE GAMMA CALC 0.7 g/dL (0.4-1.2) [facility] [place] [facility] - CORE MONOCLONAL CALC (NOMONO) [facility] [place] - CORE ALBUMIN PERCENT 57.7 % (58.8-69.6) L [facility] - CORE ALPHA 1 PERCENT 3.4 % (1.6-3.0) H [facility] [place] [facility] [place] - CORE ALPHA 2 PERCENT 15.0 % (7.2-13.2) H [facility] [place] [facility] [place] - CORE BETA PERCENT 14.1 % (8.0-14.7) Laboratory [facility] - CORE GAMMA PERCENT 9.8 % (7.3-16.4) Laboratory [place] [facility] - CORE INTERPRETATION: [facility] - CORE MD AGUSTIN 07/03/21Interpretation per formed [place] [address] ID Date Data Source [id number] 06/27/2021 09:44:00 AM EDT [facility] ([facility], ) Name Value Range Interpretation Code Description Data Jenn rce(s) Supporting Document(s) Renal vessels US.doppler Laboratory test result [facility] ([facility], ) Abdomen US 0 [facility] ([facility], ) ID Date Data Source [id number] 06/25/2021 06:13:00 PM EDT [facility] ([facility], ) Name Value Range Interpretation Code Description Data Jenn rce(s) Supporting Document(s) Jyoti (Hep2) Laboratory test result Abnormal (applies to non -numeric results) [facility] ([facility], ) <content>Negative <1:80</content>
<content>Borderline 1:80</content>
<content>Positive >1:80</content>
<content></content> Laboratory test finding (navigational concept) Laboratory test r esult Above high normal MEDENT ([facility], ) Dense Fine Speckled pattern is noted. Th is pattern suggests the presence of DFS70 antibody which has a low prevalence in systemic autoimmune rheumatic diseases. ICAP nomenclature: AC-2,4,5,29 Laboratory test finding (navigational concept) Laboratory test r esult Normal (applies to non-numeric results) [facility] ([facility] ) Laboratory test finding (navigational concept) Laboratory test r esult Normal (applies to non-numeric results) [facility] ([facility], ) Laboratory test finding (navigational concept) Laboratory test r esult Normal (applies to non-numeric results) [facility] ([facility], ) Laboratory test finding (navigational concept) Laboratory test r esult Normal (applies to non-numeric results) [facility] ([facility], ) Laboratory test finding (navigational concept) Laboratory test r esult Normal (applies to non-numeric results) [facility] ([facility], ) Laboratory test finding (navigational concept) Laboratory test r esult Normal (applies to non-numeric results) [facility] ([facility], ) Laboratory test finding (navigational concept) Laboratory test r esult Normal (applies to non-numeric results) [facility] ([facility], ) Laboratory test finding (navigational concept) Laboratory test r esult Normal (applies to non-numeric results) [facility] ([facility], ) . For more information about Hep-2 cell [...] Nucleosomes, Histones Drug-induced SLE --------- Speckled Sm, INSERTING OPERATOR, SCL-70, SLE,MCTD,PSS (diffuse form), SS-A/SS-B Sjogrens --------- Nucleolar SCL-70, PM-1/SCL High titers Scleroderma, PM/DM --------- Centromere Centromere PSS (limited form) w/Crest syndrome variable --------- Nuclear Dot Sp100,i77-swsawa Primary Biliary Cirrhosis --------- Nuclear GP210, Primary Biliary Cirrhosis Membrane oscar A,B,C --------- Performed at: RN - [facility] [address] [id number] Clinical Applications Manager: Kait Apple MD, Phone: [phone] Laboratory test finding (navigational concept) Laboratory test r esult Normal (applies to non-numeric results) TRACEY ([facility] LADAN yang) Laboratory test finding (navigational concept) Laboratory test r esult Normal (applies to non-numeric results) [facility]ACE[facility]) ID Date Data Source [id number] 06/25/2021 06:13:00 PM EDT [facility] ([facility]) Name Value Range Interpretation Code Description Data Jenn rce(s) Supporting Document(s) Ferritin [Mass/volume] in Serum or Plasma 11 ng/mL 8-252 Normal (applies to non- numeric results) [facility] ([facility]) C reactive protein [Mass/volume] in Serum or Plasma by High sensitivity method 0.70 mg/dL 0.00-0.30 Above high normal [facility]) ID Date Data Source [id number] 06/25/2021 06:13:00 PM EDT [facility] ([facility]) Name Value Range Interpretation Code Description Data Jenn rce(s) Supporting Document(s) Vitamin B12 Level 492 pg/mL Normal (applies to non-numeri c results) [facility] ([facility]) VITAMIN B12 NORMAL RANGE NORMAL 247 - 911 PG/ML INDETERMINATE 211 - 246 PG/ML DEFICIENT LESS THAN 211 PG/ML Folate Laboratory test result Normal (applies to non-n umeric results) [facility] ([facility]) FOLATE NORMAL RANGE NORMAL GREATER THAN 5.4 NG/ML INDETERMINATE 3.4-5.4 NG/ML DEFICIENT LESS THAN 3.4 NG/ML ID Date Data Source [id number] 06/25/2021 06:13:00 PM EDT [facility] ([facility]) Name Value Range Interpretation Code Description Data Jenn rce(s) Supporting Document(s) Free T4 0.95 ng/dL 0.76-1.46 Normal (applies to non-numeric resul ts) [facility] Thyroid Stimulating Hormone 1.880 uIU/ML 0.358-3.740 Norm al (applies to non- numeric results) [facility]) ID Date Data Source [id number] 06/25/2021 06:13:00 PM EDT [facility] ([facility]) Name Value Range Interpretation Code Description Data Jenn rce(s) Supporting Document(s) Iron (Fe) 73 ug/dL 50-170 Normal (applies to non-numeric resul ts) [facility] Total Iron Binding Capacity 480 ug/dL 250-450 Above high normal [facility] ([facility]) Percent Saturation 15.2 % 13.2-45.0 Normal (applies to non-numer ic results) [facility]) ID Date Data Source [id number] 06/25/2021 06:13:00 PM EDT [facility] ([facility]) Name Value Range Interpretation Code Description Data Jenn rce(s) Supporting Document(s) Reticulocytes/100 erythrocytes in Blood by Automated c ount Laboratory test result [facility]) ID Date Data Source [id number] 06/25/2021 06:13:00 PM EDT [facility]) Name Value Range Interpretation Code Description Data Jenn rce(s) Supporting Document(s) Reticulocyte % 1.6 % 0.5-1.5 Above high normal [facility] ([facility]) Reticulocyte # 62.3 10 17-77 Normal (applies to non-numeric r esults) [facility] ([facility]) Retic Hemoglobin Equivalent 30.5 pg 24-36 Norm al (applies to non-numeric results) [facility] ([facility]) ID Date Data Source [id number] 06/25/2021 06:13:00 PM EDT [facility]) Name Value Range Interpretation Code Description Data Jenn rce(s) Supporting Document(s) Erythrocyte sedimentation rate by Westergren method 2 mm/hr 0-20 Normal (applies to non-numeric results) [facility]) ID Date Data Source [id number] 06/25/2021 06:13:00 PM EDT [facility]) Name Value Range Interpretation Code Description Data Jenn rce(s) Supporting Document(s) Hemoglobin 10.8 g/dL 12.0-15.5 Below low normal [facility] ( [facility]) White Blood Count 5.9 10 4.0-10.0 Normal (applies to non-numeri c results) [facility]) Red Blood Count 3.87 10 4.00-5.40 Below low normal [facility] ([facility]) Mean Corpuscular Hemoglobin 27.9 pg 27.0-33.0 Norm al (applies to non-numeric results) [facility] ([facility]) Mean Corpuscular Volume 87.9 fl 80.0-96.0 Normal ( applies to non-numeric results) [facility] ([facility]) Hematocrit 34.0 % 36.0-47.0 Below low normal [facility] ( [facility]) Mean Corpuscular HGB Conc 31.8 g/dL 32.0-36.5 Below low normal [facility] ([facility]) Red Cell Distribution Width 15.4 % 11.5-14.5 Above high normal [facility] ([facility]) Platelet Count, Automated 244 10 150-450 Normal (applies to non-numeric results) [facility] ([facility]) Nucleated Red Blood Cell % 0.0 % 0-0 Normal (applies to n on-numeric results) [facility] ([facility]) ID Date Data Source [id number] 06/25/2021 09:50:00 AM EDT [facility] ([facility]) Name Value Range Interpretation Code Description Data Jenn rce(s) Supporting Document(s) PDFReport Laboratory test result [facility]) FVC-%Pred-Pre 102 L [facility] ([facility]) FVC-Pre 3.66 L [facility] ([facility]) FVC-Pred 3.58 L [facility] ([facility]) Fev1-Pred 2.85 L [facility] ([facility]) FVC-LLN 2.88 L [facility] ([facility]) Fev1-Pre 3.07 L [facility] ([facility]) Fev1-LLN 2.26 L [facility] ([facility]) Fev6-Pred 3.49 L [facility] ([facility]) Fev1-%Pred-Pre 107 L [facility] ([facility], ) Fev6-LLN 2.81 L [facility] ([facility]) Low6wky-Qpir 81 % [facility] ([facility]) Fev6-%Pred-Pre 104 L [facility] ([facility]) Fev6-Pre 3.66 L [facility] ([facility]) Fxu7lqg-XOE 71 % [facility] ([facility]) Uki2ocb-%Pred-Pre 104 % [facility] ([facility]) Njs6xfv-Zsv 84 % [facility] ([facility]) Nug9xmi-Knyx 98 % [facility] ([facility]) FEFMax-Pred 6.80 L/E/sec [facility] ([facility]) Eah4ckh-%Pred-Pre 102 % [facility] ([facility]) Lqa5obk-Ylp 100 % [facility] ([facility]) FEFMax-LLN 5.08 L/E/sec [facility] ([facility]) FEFMax-%Pred-Pre 114 L/E/sec [facility] ([facility]) FEFMax-Pre 7.76 L/E/sec [facility] ([facility]) Huj6309-Vfj 3.31 L/E/sec [facility] ([facility]) Zrd8464-%Pred-Pre 116 L/E/sec [facility] ([facility]) Ndm2586-Kppc 2.84 L/E/sec [facility] ([facility]) Kha2332-EYF 1.60 L/E/sec [facility] ([facility]) Rte5bqn9-Hzsa 83 % [facility] ([facility]) ExpTime-Pre 4.33 sec [facility] ([facility]) Skg1kzi7-Mnl 84 % [facility] ([facility]) Bjl4qhn2-SVK 74 % [facility] ([facility]) Qnm6efo0-%Pred-Pre 101 % [facility] ([facility], ) ID Date Data Source [id number] 06/18/2021 08:10:00 [place] [address] RESPIRATORY CARE REPORT ==== ---------NAME------- NUMBER SEX AGE ADMIT DISC. XRAY# F/C TESSY MARTINEZ [id number] F 50 06/17/21 06/17/21 [id number] NA E/R DATE OF : 1970 M/R# [id number] PH#: [id number] LOCATION: EMERGENCY DEPT EKG [id number] COMP LETE:06/18/21 01:00 VMT 24849 PHYSICIAN: VIVIAN Name Value Range Interpretation Code Description Data Jenn rce(s) Supporting Document(s) ID Date Data Source [id number] 06/18/2021 08:24:00 [place] [address] PHONE: [phone] FAX: [phone] Name .................. : ANTONIA MARTNIEZ Acct Number.................. : [id number] ROOM. ................. : VT-14 Number ................... : [id number] Stay type ............. : E/R Discharge Date......... ... : Admit Date ......... : 06/17/21 Admit Phys .................... : VIVIAN Date of ....... : 1970 Family Phys ................... : NO PCP Phone .................. : Age ................................ : 50 Film# .................. .:[id number] Sex ................................. : F Unsigned transcriptions are preliminary reports and do not represent a medical or legal document CHEST PORTABLE [id number] COMPLETE:06/17/21 22:27 DLA 29176 Reason(s): chest pain PORTABLE CHEST SINGLE VIEW 10:24 PM HISTORY: Chest pain COMPARISON: None. FINDINGS: Mediastinal and hilar structures are normal. Cardiac silhouette is unremarkable. Lungs are clear. No pulmonary edema. No pleural effusions or pneumothorax. IMPRESSION: Normal examination. Electronically Reviewed and Signed By Tyler Espinoza MD , 06/18/21 08:24, NMB Transcribe Initials: LATRICIA , Transcribe Date: 06/17/21 22:36, Dictation Date: Copy for: EMERGENCY DEPT via modem Copy for: 710 MED REC DISCHARGED Page 1 of 1 Name Value Range Interpretation Code Description Data Jenn rce(s) Supporting Document(s) ID Date Data Source [id number] 06/17/2021 09:29:00 PM EDT [facility] 1 OrderSheet [facility] Emergency Department [address] [place] [address] Phone #: ext- [phone] 06/17/2021 21:13 [id number] Sex: F : 1970 Age: 50yWEIGHT:72.5 kg (S) HEIGHT:64 inches (S) BMI:27.5ALLERGIES: Amoxicillin, Reglan, SkelaxinCHIEF COMPLAINT: chest pain, discomfortDIAGNOSIS: Atypical chest painLAB ORDERSOrder Description Priority Entered Acknowledged InitialedCBC w Diff STAT 21:51 06/17 21:57 [place] [facility] [place], [facility] [place] [facility] ; Jxyw2NSS STAT 21:51 06/17/2021 21:56 [place] [facility] [place], [facility] [place] [facility] ; Vlvd3Gqbrmr STAT 21:51 06/17/2021 21:56 [place] [facility] [place], [facility] [place] [facility] ; Tdpi3IY/PTT STAT 21:51 06/17/2021 21:56 [place] [facility] [place], [facility] [place] [facility] ; Jpmq2Lxoleyym-Q STAT 21:51 06/17/2021 21:57 [facility] [place], [facility] [place] [facility] ; Oquo3FMY STAT 21:51 06/17/2021 21:57 [facility] [place] [facility] ; Jhmc7J-Ywgul STAT 21:52 06/17/2021 21:57 [facility], [facility] [place] [facility] ; Grbf0SOOVKJHHDF STUDY ORDERSOrder Description Priority Entered Acknowledged InitialedChest Portable 1 STAT 21:51 06/17/2021 23:21 Matthew MorfinESC CompanyJana R.N.(Oxygen?(No)) ; Reason for Study: chest painMEDICATION/IV/DRIP/FLUID ORDERSOrder Description Priority Entered Acknowledged Initialed 2 OrderSheet [facility] Emergency Department [address] [place] [address] Phone #: ext- [phone] 06/17/2021 21:13 Patient: TERESSA CARTER Sex: F : 1970 Age: 50yToradol IVP 30 mg 21:52 06/17/2021 Cancelled: Patient Refusal 23:18 Navjot,(NOW x1) Jana Park R.N. ;Valium IVP 5 mg 21:52 06/17/2021 Cancelled: Patient Refusal 23:18 Navjot,(NOW x1) Jana Park R.N. ;GENERAL ORDERSOrder Description Priority Entered Acknowledged InitialedBlood Pressure 21:51 06/17/2021 21:56 [facility] [place] [facility] ; Dese7Faddjib Monitor 21:51 06/17/2021 21:56 [place] [facility](continuous) 2smsdc[employer] [place] [facility] ; Nexg8VSG 21:51 06/17/2021 21:56 [place] [facility] [place] [facility] ; Nctw8RIT 21:51 06/17/2021 23:21 Vivian Morfin Victoria Rachel R.N. ;Obtain Old EKG 21:51 06/17/2021 21:56 [place] [place] [facility] ; Yrxv0Tckdem Old Records 21:51 06/17/2021 21:56 [place] [facility] ; Didp1Mvjxnd titrate to 21:51 06/17/2021 21:56 [facility] ED92% [facility] [place] [facility] ; Naxa6Rygio oximeter 21:51 06/17/2021 21:56 [place] [facility](Continuous) [facility] [place] [facility] ; Senf7Iosntd Lock 21:51 06/17/2021 Cancelled: Patient Refusal 23:18 Vivian Morfin Victoria Rachel R.N. ;Vitals 21:51 06/17/2021 21:56 [place] [facility] [place] [facility] ; Tech1[Electronically signed by Chaparrita Morfin R.N. (23:06/17/2021)][Electronically signed by Jana Park (03:33 06/18/2021)][Electronically locked by Chaparrita Morfin R.N. (:06/17/2021)] 3 OrderSheet [facility] Emergency Department [address] [place] [address] Phone #: ext- [phone] 06/17/2021 21:13 Patient: TERESSA CARTER Sex: F : 1970 Age: 50y Name Value Range Interpretation Code Description Data Jenn rce(s) Supporting Document(s) ID Date Data Source [id number] 06/17/2021 09:29:00 PM EDT [facility] 1 Medication Reconciliation Report [facility] Emergency Department [address] [place] [address] Phone #: ext- [phone] 06/17/2021 21:13 Patient: TERESSA CARTER Sex: F : 1970 Age: 50yWeight: 72.5 kgHeight/Length: 64 in.BMI: 27.5ALLERGIES: Amoxicillin, Reglan, SkelaxinThe patient's Home Medications are listed below:THE FOLLOWING MEDICATIONS NEED TO BE RECONCILED: Control Pills lamoTRIgine Oral (100 mg) 1 tablet, daily Pantoprazole Sodium Oral (40 mg) 1 tablet, daily Sertraline HCl Oral (100 mg) 1 tablet, daily VitaminThe source(s) of the original Home Medication information:Not obtained.The following Medications were given to the patient in the Emergency Department:None.The following Medications were prescribed to the patient:None. Name Value Range Interpretation Code Description Data [facility] Supporting Document(s) ID Date Data Source [id number] 06/17/2021 09:29:00 PM EDT [facility] 1 Medication Administration Record [facility] Emergency Department [address] [place] [address] Phone #: ext- [phone] 06/17/2021 21:13 Patient: TERESSA CARTER Sex: F : 1970 Age: 50yWeight: 72.5 kgHeight/Length: 64 inBMI: 27.5ALLERGIES: Skelaxin, Amoxicillin, ReglanDate/Time Medication Administered Medication Ordered Name Value Range Interpretation Code Description Data [facility](s) Supporting Document(s) ID Date Data Source [id number] 06/17/2021 09:29:00 PM EDT [facility] 1 General Instructions [facility] Emergency Department [address] [place] [address] Phone #: ext- [phone] 06/17/2021 21:13 Patient: TERESSA CARTER Sex: F : 1970 Age: 50yAtypical chest painINSTRUCTIONS(you decided to sign out against medical advise and refused to have the ct scan of the chest to rule outdissection as your chest pain was going to your back.your troponin was negative and your d dimer isnormal. go to the nearest ER if symptoms worsen).Follow-up:Follow up with your healthcare provider in one. Reason for referral: evaluation and treatment. Summary ofcare provided to patient via paper.AMA warnings: Time of assessment: 23:11 06/17/2021. Oriented to person, place, and time. Givesappropriate answers and rational explanation of refusal of care. Speaks coherently. No signs ofpsychosis, auditory hallucinations, delusional thinking, suicidal ideations or slurred speech. No tangentialthinking, visual hallucinations or homicidal ideations. Abstract thinking intact.Clinical Impression: the patient has the capacity to make decisions regarding the medical care offered.Aware of suspected diagnosis suggested by screening exam. The suspected diagnosis, based upon theinitiated medical screening exam, is needs to rule out dissection and has been discussed with the patient.Acknowledges understanding of the reasons for recommendations regarding medical treatment andmedical tests. The recommended medical care being refused is cta of the chest abdomen and pelvis andhas been discussed with the patient. The risks of refusing recommended care that were disclosed andacknowledged are permanent mental impairment, loss of sexual function and loss of current lifestyle; therisks of refusing recommended care that were disclosed are . Discharge instructions were provided. ADDITIONAL INFORMATIONUncertain Causes of Chest Pain 2 General Instructions [facility] Emergency Department [address] [place] [address] Phone #: ext- [phone] 06/17/2021 21:13 Patient: [facility]TER [id number] Sex: F : 1970 Age: 50yChest pain can happen for a number of reasons. Sometimes the cause can't be determined. Ifyour condition does not seem serious, and your pain does not appear to be coming from your heart,your healthcare provider may recommend watching it closely. Sometimes the signs of a seriousproblem take more time to appear. Many problems not related to your heart can cause chest pain.These include: Musculoskeletal. Costochondritis is an inflammation of the tissues around the ribs that can occur from trauma or overuse injuries, or a strain of the muscles of the chest wall Respiratory. Pneumonia, collapsed lung (pneumothorax), or inflammation of the lining of the chest and lungs (pleurisy) Gastrointestinal. Esophageal reflux, heartburn, ulcers, or gallbladder disease Anxiety and panic disorders Nerve compression and inflammation Rare miscellaneous problems such as aortic aneurysm (a swelling of the large artery coming out of the heart) or pulmonary embolism (a blood clot in the lungs)Home careAfter your visit, follow these recommendations: Rest today and avoid strenuous activity. 3 General Instructions [facility] Emergency Department [address] [place] [address] Phone #: ext- [phone] 06/17/2021 21:13 Patient: TERESSA CARTER Sex: F : 1970 Age: 50y Take any prescribed medicine as directed. Be aware of any recurrent chest pain and notice any changesFollow-up careFollow up with your healthcare provider if you do not start to feel better within 24 hours, or as advised.Call [phone] if any of these occur: A change in the type of pain: if it feels different, becomes more severe, lasts longer, or begins to spread into your shoulder, arm, neck, jaw or back Shortness of breath or increased pain with breathing Weakness, dizziness, or fainting Rapid heart beat Crushing sensation in your chestWhen to seek medical adviceCall your healthcare provider right away if any of the following occur: Cough with dark colored sputum (phlegm) or blood Fe shane of 100.4F (38C) or higher, or as directed by your healthcare provider Swelling, pain or redness in one leg [phone] [employer]. [address] [place] [address], [place] [address]. All rights reserved. This information is not intended as asubstitute for professional medical care. Always follow your healthcare professional's instructions. You have been given the following additional information: Chest Pain, Uncertain Cause(Electronically signed by Jana Park 06/18/2021 03:33) Name Value Range Interpretation Code Description Data Jenn rce(s) Supporting Document(s) ID Date Data Source [id number] 06/17/2021 09:29:00 PM EDT [facility] 1 Clinical Report - Nurses [facility] Emergency Department [address] [place] [address] Phone #: onw- [phone] 06/17/2021 21:13 Patient: TERESSA CARTER Sex: F : 1970 Age: 50yTRIAGEArrived by private vehicle. Historian: patient. Accompanied by family.Acuity: LEVEL 3.Chief Complaint: CHEST PAIN and (SOB and back pain).Alert. No acute distress.Onset. (2 week). ( Patient arrives c/o chest pain, sob and back pain. Pt reports sob and pain has beenintermittent x2 weeks. Pt states she has been seen before for this and her HR has always been high. Ptstates her HR has been over 100 for "awhile". Pt reports pain in chest is substernal and radiates to leftside. Pt also reports nausea and fatigue. 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 --21:40 06/17/21 Yoselyn Saldivar R.N.21:33 06/17/21. BP: 127/77. MAP: 93. HR: 127. RR: 22. O2 saturation: 100%. Temp: 98.9 F. Pain le velnow: 02/22. --21:40 06/17/21 Yoselyn Saldivar R.N.Weight: 72.5 kg stated. Height/Length: 64 inches Per Patient. BMI: 27.5. --21:33 06/17/21 Yoselyn Saldivar R.N.MedicationslamoTRIgine Oral (Tablet 100 mg) 1 tablet, daily. --21:37 06/17/21 Yoselyn Saldivar R.N. Vitamin. --21:37 06/17/21 Yoselyn Saldivar R.N. Pantoprazole Sodium Oral (Tablet Delayed Release 40 mg) 1 tablet, daily. --21:37 06/17/21 Yoselyn Saldivar R.N. Sertraline HCl Oral (Tablet 100 mg) 1 tablet, daily. --21:38 06/17/21 Yoselyn Saldivar R.N. Control Pills. --21:38 06/17/21 Yoselyn Saldivar R.N.AllergiesReglan. --21:36 06/17/21 Yoselyn Saldivar R.N.Amoxicillin. --21:36 06/17/21 Yoselyn Saldivar R.N.Skelaxin. --21:36 06/17/21 Yoselyn Saldivar R.N.PROBLEMS:Lupus.Crohn's Disease.Brain anyruesm.Migraine Headache. --21:39 06/17/21 Yoselyn Saldivar R.N. 2 Clinical Report - Nurses [facility] Emergency Department [address] [place] [address] Phone #: ext- [phone] 06/17/2021 21:13 Patient: TERESSA CARTER Sex: F : 1970 Age: 50y ADDITIONAL SURGERIES: Bowel resection. Right ovary removal. Tonsillectomy Adenoidectomy. --21:39 06/17/21 Yoselyn Saldivar R.N. History PAST MEDICAL HX: Immunizations: up-to-date. SOCIAL HX: Never smoker. No alcohol use or drug use. She has not traveled outside the [place] Infectious disease exposure: No infectious disease exposure. The patient was not exposed to Coronavirus. Patient is not a known carrier of tuberculosis, hepatitis, HIV, MRSA or VRE. Patient is not a known carrier of CRE. SELF HARM ASSESSMENT: Self harm assessment was performed. The patient answered "no" to the question(s) "Have you recently felt down, depressed, or hopeless?", "Do you have thoughts of harming or killing yourself?", "Do you have a plan for harming or killing yourself?", "Have you recently had thoughts about harming or killing others?", "Do you have any dangerous items in your possession?", "Have you noticed less interest or pleasure in doing things?", "Are you here because you tried to hurt yourself?" and "Have you ever tried to hurt yourself before today?". ABUSE ASSESSMENT: Abuse assessment. The patient had positive responses to the question(s) "Do you feel safe in your home?", "Are you afraid to go home?", "Has anyone hurt you or threatened to hurt you?", "Are you afraid of your partner?" and "Have children witnessed violence in the home?". Abuse denied. NUTRITIONAL RISK ASSESSMENT: The nutritional risk assessment revealed no deficiencies. FUNCTIONAL ASSESSMENT: Functional assessment: no impairments noted. LEARNING NEEDS ASSESSMENT: The learning needs assessment revealed no barriers. FALL RISK ASSESSMENT: Fall risk assessment completed. No risk factors identified. SKIN INTEGRITY ASSESSMENT: Skin integrity risk assessment completed. No skin integrity risk identified. --21:40 06/17/21 Yoselyn Saldivar R.N. Interventions Identification band on patient. To treatment room. --21:40 06/17/21 Yoselyn Saldivar R.N.PHYSICAL ASSESS MENTAmbulatory to room. Patient gowned.GENERAL / NEURO / PSYCH: Alert. Oriented X 4. Appears in no acute distress. Appears in pain.HEENT: Mucous membranes are pink.RESPIRATORY: Respirations not labored. Chest nontender. Breath sounds within normal limits. ( Ptreports intermittent sob d/t pain x 2weeks. NAD distress noted).CVS: Cardiac rhythm: sinus tachycardia; (107). Heart sounds within normal limits. Pulses within normal 3 Clinical Report - Nurses [facility] Emergency Department [address] [place] [address] Phone #: ext- [phone] 06/17/2021 21:13 Patient: TERESSA CARTER Sex: F : 1970 Age: 50y limits. Capillary refill less than 2 seconds. GI / : Abdomen soft and nontender. EXTREMITIES: No lower extremity edema. SKIN: Skin is warm and dry. Normal skin turgor. Skin is non-tender. BACK: ( Pt reporting back pain x2 weeks). --21:42 06/17/21 Yoselyn Saldivar R.N.NURSING PROGRESS NOTESMonitoring of patient in place. EKG time: (late entry - 19:49 06/17/2021). EKG was performed by a techand shown to the ED physician. Patient gowned. Head of bed elevated. Reassurance given. Twopatient identifiers checked. Call light placed in reach. Side rails up x 2. Bed placed in lowest position.Brakes of bed on. --21:41 06/17/21 Yoselyn Saldivar R.N.DISPOSITION / DISCHARGE The patient left the Emergency Department against medical advice and without completion of treatment. The patient appears to be alert, oriented x4, coherent and in no acute distress. Patient paged once. The patient notified staff prior to leaving the department and stated is leaving due to the long waiting time. Notified the ED physician of patient departure. Prior to leaving, she was advised to stay for completion of treatment and return if needed. She was informed of the risks of leaving and verbalized understanding of these risks. Patient signed form prior to leaving. S he left the Emergency Department ambulatory and via private vehicle. --23:26 06/17/21 Chaparrita Morfin R.N. 23:25 06/17/21. BP: 128/76. MAP: 93. HR: 111. RR: 20. O2 saturation: 99%. Temp: 98.2 F. Pain level now: uncertain. --23:26 06/17/21 Chaparrita Morfin R.N.Locked/Released at 06/17/2021 23:26 by Chaparrita Morfin R.N. Name Value Range Interpretation Code Description Data Jenn rce(s) Supporting Document(s) ID Date Data Source [id number] 06/17/2021 09:29:00 PM EDT [facility] 1 Clinical Report - Physicians/Mid Levels [facility] Emergency Department [address] [place] [address] Phone #: ext- [phone] 06/17/2021 21:13 Patient: TERESSA CARTER Sex: F : 1970 Age: 50y Time Seen: 21:33 06/17/2021; initial patient contact, initial documentation. Arrived- By private vehicle. Historian- patient. Disposition decision: 23:11 06/17/2021.HISTORY OF PRESENT ILLNESS Chief Complaint: CHEST PAIN and DISCOMFORT. It is described as aching and sharp and it is described as located in the left chest area and in the upper back. This started 2 weeks ago and is still present and worsening. 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 It was gradual in onset and has been intermittent. Onset during rest. At its maximum, severity described as 10 / 10. When seen in the E.D., severity described as 10 / 10. Modifying factors- worsened by movement and deep breaths. Not relieved by anything. No nausea, vomiting or diaphoresis. ((Patient arrives c/o chest pain, sob and back pain. Patient reports sob and pain has been intermittent x2 weeks. Patient states she has been seen before for a heart rate in the 200 but no meds given. Pt states her HR has been over 100 for "awhile". Pt reports pain in chest is substernal and radiates to left side. which has gotten worse after she had a massage 2 days ago and thinks that the massage was too hard she cannot lay down on the left side because the pain is severe and radiated down to the lower back). She has had difficulty breathing.REVIEW OF SYSTEMSNo fever, chills, cough, pedal edema or calf pain. No fainting episodes, headache, sore throat, blurredvision or abdominal pain. No difficulty with urination, skin rash, enlarged lymph nodes, joint pain or bloodystools. All other systems reviewed and are negative.PAST HISTORYSee nurses notes. Problems: Lupus. Crohn's Disease. Brain anyruesm. Migraine Headache. Additional Surgeries: Bowel resection. Right ovary removal. Tonsillectomy Adenoidectomy. Medications: Control Pills. Sertraline HCl Oral (Tablet 100 mg) 1 tablet, daily. Pantoprazole Sodium Oral (Tablet Delayed Release 40 mg) 1 tablet, daily. Vitamin. 2 Clinical Report - Physicians/Mid Levels [facility] Emergency Department [address] [place] [address] Phone #: ext- [phone] 06/17/2021 21:13 Patient: TERESSA CARTER Sex: F : 1970 Age: 50y lamoTRIgine Oral (Tablet 100 mg) 1 tablet, daily. Allergies: Amoxicillin. Reglan. Skelaxin.SOCIAL HISTORYNever smoker. No alcohol use or drug use.ADDITIONAL NOTESThe nursing notes have been reviewed.PHYSICAL EXAMVital Signs: 06/17/2021 21:33 BP: 127/77. MAP: 93. HR: 127. RR: 22. O2 saturation: 100%. Temp: 98.9F. Pain level now: 10. Have been reviewed. Oxygen saturation normal.Appearance: Alert. Oriented X3. No acute distress. Anxious.Eyes: Pupils equal, round and reactive to light. Eyes normal inspection.Neck: Normal inspection.CVS: Tachycardia. Normal heart rhythm. Heart sounds normal. Pulses normal.Respiratory: No respiratory distress. Chest pain reproducible with palpation of the anterior and lateralchest wall, with movement of the trunk and with deep breathing. Breath sounds normal. No decreasedair movement, crackles, rhonchi or wheezes.Abdomen: Soft and nontender. Bowel sounds normal.Back: Normal external inspection. (positive tenderness on palpation on the left parascapular area onpalpation which radiates to the left side).Skin: Skin warm and dry. Normal skin color. No rash. Normal skin turgor.Neuro: Oriented X 3. No motor deficit. No sensory deficit.LABS, X-RAYS, AND EKGLaboratory Tests: D-Dimer: (MILLIE: 06/17/2021 21:57) ( MsgRcvd 06/17/2021 22:17) Final results Test Result Flag Units (Reference) D-DIMER QUANT 0.61 H ug/mL (0.27 - 0.50) CBC w Diff: (MILLIE: 06/17/2021 21:57) ( MsgRcvd 06/17/2021 22:12) Final results Test Result Flag Units (Reference) CBC W/AUTOMATED DIFF COMPLETE BLOOD COUNT WBC 7.0 10/uL (4.2 - 11.0) RBC 3.98 L 10/uL (4.20 - 5.40) HEMOGLOBIN 11.3 L g/dL (12.0 - 16.0) HEMATOCRIT 34.7 L % (37.0 - 47.0) MCV 87.2 fL (81.0 - 101) MCH 28.4 pg (27.0 - 34.0) MCHC 32.6 g/dL (31.0 - 36.0) RDW 16.0 H % (11.5 - 14.5) PLATELETS 275 10/uL (150 - 450) 3 Clinical Report - Physicians/Mid Levels [facility] Emergency Department [address] [place] [address], [place] [address] Phone #: ext- [phone] 06/17/2021 21:13 Patient: TERESSA CARTER Sex: F : 1970 Age: 50y MPV 8.6 fL (7.4 - 10.4) NEUT 64.0 % (37.0 - 80.0) LYMPH 26.8 % (25.0 - 40.0) MONO 7.3 % (3.0 - 8.0) EOS 1.4 % (0.0 - 7.0) BASO 0.1 % (0.0 - 2.5) %IG 0.4 H % (0.0 - 0.0) %NRBC 0.0 % (0.0 - 0.0) #NEUT 4.47 10/uL (2.00 - 6.90) #LYMPH 1.87 10/uL (0.60 - 3.40) #MONO 0.51 10/uL (0.00 - 0.90) #EOS 0.10 10/uL (0.00 - 0.70) #BASO 0.01 10/uL (0.00 - 0.20) #IG 0.03 10/uL (0.00 - 0.10) #NRBC 0.00 10/uL (0.00 - 0.00) MANUAL DIFF NOT INDICATED RBC MORPH NOT INDICATEDCMP: (MILLIE: 06/17/2021 21:57) ( MsgRcvd 06/17/2021 22:29) Final results Test Result Flag Units (Reference) COMPREHENSIVE METABOLIC PANEL COMPREHENSIVE METABOLIC PANEL SODIUM 139 mEq/L (134 - 153) POTASSIUM 4.2 mEq/L (3.6 - 5.0) CHLORIDE 105 mEq/L (98 - 107) CO2 23 MEQ/L (22 - 30) GLUCOSE 91 MG/DL (70 - 99) BUN 12 MG/DL (7 - 21) CREATININE 0.8 MG/DL (0.7 - 1.5) BUN/CREAT 15 (8 - 27) TOTAL PROTEIN 6.2 L G/DL (6.3 - 8.2) ALBUMIN 3.5 L G/DL (3.9 - 5.0) GLOBULIN 2.7 GM/DL (2.4 - 3.2) A/G RATIO 1.3 (0.8 - 2.0) CALCIUM 9.4 MG/DL (8.4 - 10.2) TOTAL BILI <0.7 MG/DL (0.2 - 1.3) ALKALINE PHOS 45 U/L (38 - 126) SGOT/AST 11 U/L (5 - 40) SGPT/ALT 9 U/L (7 - 56) ANION GAP 11.0 mmol/L (8.0 - 16.0) AGE 50 yrs NON-AA GFR >60 mL/min AFR AMER GFR >60 mL/min Male GFR Interprentation 20-49 yrs >60 mL/min [id number] yrs >56 mL/min Normal 60-69 yrs >49 mL/min Normal 70-79yrs>42 mL/min Normal 80 and above >35 mL/min Normal Female GFRInterpretation 20-39 yrs >60 mL/min Normal 40-49 yrs >58 mL/minNormal 50-59 yrs >51 mL/min Normal 60-69 yrs >45 mL/min Lkkpql50-07 yrs >39 mL/min Normal 80 and above >32 mL/min NormalLipase: (MILLIE: 06/17/2021 21:57) ( MsgRcvd 06/17/2021 22:29) Final results Test Result Flag Units (Reference) LIPASE 58 U/L (13 - 60)PT/PTT: (MILLIE: 06/17/2021 21:57) ( MsgRcvd 06/17/2021 22:17) Final results Test Result Flag Units (Reference) PROTIME 12.6 SECONDS (11.0 - 15.5) 4 Clinical Report - Physicians/Mid Levels [facility] Emergency Department [address] [place] [address] Phone #: ext- [phone] 06/17/2021 21:13 Patient: TERESSA CARTER Sex: F : 1970 Age: 50y INR 0.93 (0.93 - 1.23) PTT 28.5 SECONDS (24.8 - 36.7) \\BLDo\\INR INTERPRETATION\\BLDx\\ Therapeutic range for Coumadin andrelated oral anticoagulants. -International Normalized Ratio (INR): 2.0 - 3.0 for VenousThrombosis, Pulmonary Embolus, Tissue heart valves, Acute [place] Atrial Fibrillation, Valvular heart diseaseand recurrent Systemic Embolism. -International Normalized Ratio (INR): 2.5 - 3.5 forMechanical Prosthetic valve.Troponin-T: (MILLIE: 06/17/2021 21:57) ( [facility] 06/17/2021 22:28) Final results Test Result Flag Units (Reference) TROPONIN T <0.01 NG/ML (0.00 - 0.10) TROPONIN T0.1 ng/ml Recommended as the clinical threshold value forTroponin T.CPK: (MILLIE: 06/17/2021 21:57) ( [facility] 06/17/2021 22:29) Final results Test Result Flag Units (Reference) CPK 31 U/L (30 - 170)Chest Portable 1 View: (MILLIE: 06/17/2021 21:51) ( [facility] 06/17/2021 22:37) In ProgressCHEST PORTABLEReason(s): chest painTRANSPORTATION: P IV? O2? Oxygen?(No) Room: [place] [address] PHONE: [phone] FAX: [phone] Name .................. : ANTONIA MARTINEZ Acct Number.................. : [id number] ROOM. ........ ......... : VT-14 Number ................... : [id number] Stay type ............. : E/R Discharge Date......... ... : Admit Date ......... : 08/03/21 Admit Phys .................... : CHANLIECCO Date of ....... : 1970 Family Phys ................... : NO PCP Phone .................. : Age ................................ : 50 Film# .................. .:[id number] Sex ............... .................. : F Unsigned transcriptions are preliminary reports and do not represent a medical or legal document CHEST PORTABLE [id number] COMPLETE:06/17/21 22:27 DLA [id number] Reason(s): chest pain PORTABLE CHEST SINGLE VIEW 10:24 PM HISTORY: Chest pain COMPARISON: None. FINDINGS: Mediastinal and hilar structures are normal. Cardiac silhouette is unremarkable. Lungs are clear. No pulmonary edema. No pleural effusions or pneumothorax. 5 Clinical Report - Physicians/Mid Levels [facility] Emergency Department [address] [place] [address] Phone #: ext- [phone] 06/17/2021 21:13 Patient: TERESSA CARTER Sex: F : 1970 Age: 50y IMPRESSION: Normal examination. Electronically Reviewed and Signed By DCTISAAC , SIGNDATE, YASMIN Transcribe Initials: LATRICIA , Transcribe Date: 06/17/21 22:36, Dictation Date: <<REPDIST>> Page 1 of 1.PROGRESS AND PROCEDURESCourse of Care: 23:09 06/17/21. d dimer is negative patient wants to sign out aginst medicaladvise.medications were not given as they cannot get the IV. advised to have ct scan to rule out dissectionbut she refused and wants to sign out AMA. Disposition: Condition: good and stable.CLINICAL IMPRESSION Atypical chest painINSTRUCTIONS (you decided to sign out against medical advise and refused to have the ct scan of the chest to rule out dissection as your chest pain was going to your back.your troponin was negative and your d dimer is normal. go to the nearest ER if symptoms worsen). Follow-up: Follow up with your healthcare provider in one. Reason for referral: evaluation and treatment. Summary of care provided to patient via paper. AMA warnings: Time of assessment: 23:11 06/17/2021. Oriented to person, place, and time. Gives appropriate answers and rational explanation of refusal of care. Speaks coherently. No signs of psychosis, auditory hallucinations, delusional thinking, suicidal ideations or slurred speech. No tangential thinking, visual hallucinations or homicidal ideations. Abstract thinking intact. Clinical Impression: the patient has the capacity to make decisions regarding the medical care offered. 6 Clinical Report - Physicians/Mid Levels [facility] Emergency Department [address] [place] [address] Phone #: ext- [phone] 06/17/2021 21:13 Patient: TERESSA CARTER Sex: F : 1970 Age: 50y Aware of suspected diagnosis suggested by screening exam. The suspected diagnosis, based upon the initiated medical screening exam, is needs to rule out dissection and has been discussed with the patient. Acknowledges understanding of the reasons for recommendations regarding medical treatment and medical tests. The recommended medical care being refused is cta of the chest abdomen and pelvis and has been discussed with the patient. The risks of refusing recommended care that were disclosed and acknowledged are permanent mental impairment, loss of sexual function and loss of current lifestyle; the risks of refusing recommended care that were disclosed are . Discharge instructions were provided.(Electronically signed by Jana Park 06/18/2021 03:33) Name Value Range Interpretation Code Description Data Jenn rce(s) Supporting Document(s) ID Date Data Source [id number] 06/17/2021 10:29:00 PM EDT [facility] Name Value Range Interpretation Code Description Data Jenn rce(s) Supporting Document(s) COMPREHENSIVE METABOLIC PANEL [facility] COMPREHENSIVE METABOLIC PANEL Sodium [Moles/volume] in Serum or Plasma 139 mEq/L 134 - 153 [facility] Potassium [Moles/volume] in Serum or Plasma 4.2 mEq/L 3.6 - 5.0 [facility] Chloride [Moles/volume] in Serum or Plasma 105 mEq/L 98 - 107 [facility] Carbon dioxide, total [Moles/volume] in Serum or Plasma 23 MEQ/L 22 - 30 [facility] Glucose [Mass/volume] in Serum or Plasma 91 MG/DL 70 - 99 [facility] BUN 12 MG/DL 7 - 21 [facility] Creatinine [Mass/volume] in Serum or Plasma 0.8 MG/DL 0.7 - 1.5 [facility] BUN/CREAT 15 8 - 27 [facility] Protein [Mass/volume] in Serum or Plasma 6.2 G/DL 6.3 - 8.2 L [facility] Albumin [Mass/volume] in Serum or Plasma 3.5 G/DL 3.9 - 5.0 L [facility] Globulin [Mass/volume] in Serum by calculation 2.7 GM/DL 2.4 - 3.2 [facility] A/G RATIO 1.3 0.8 - 2.0 [facility] Calcium [Mass/volume] in Serum or Plasma 9.4 MG/DL 8.4 - 10.2 [facility] Bilirubin.total [Mass/volume] in Serum or Plasma <0.7 MG/DL 0.2 - 1.3 [facility] Alkaline phosphatase [Enzymatic activity/volume] in Serum or Plasma 45 U/L 38 - 126 [facility] Aspartate aminotransferase [Enzymatic activity/volume] in Serum or Plasma 11 U/L 5 - 40 [facility] Alanine aminotransferase [Enzymatic activity/volume] in Seru m or Plasma 9 U/L 7 - 56 [facility] Anion gap 3 in Serum or Plasma 11.0 mmol/L 8.0 - 16.0 [facility] AGE [address] [facility] NON-AA GFR >60 mL/min [facility] AFR AMER GFR >60 mL/min [facility] Male GFR In terprentation 20-49 yrs >60 mL/min Normal 50-59 yrs >56 mL/min Normal 60-69 yrs >49 mL/min Normal 70-79yrs >42 mL/min Normal 80 and above >35 mL/min Normal Female GFR Interpretation 20-39 yrs >60 mL/min Normal 40-49 yrs >58 mL/min Normal 50-59 yrs >51 mL/min Normal 60-69 yrs >45 mL/min Normal 70-79 yrs >39 mL/min Normal 80 and above >32 mL/min Normal ID Date Data Source [id number] 06/17/2021 10:29:00 PM EDT [facility] Value Range Interpretation Code Description Data Jenn rce(s) Supporting Document(s) Creatine kinase [Enzymatic activity/volume] in Serum or Plasma 3 1 U/L 30 - 170 [facility] ID Date Data Source [id number] 06/17/2021 10:29:00 PM [facility] Value Range Interpretation Code Description Data Jenn rce(s) Supporting Document(s) Lipase [Enzymatic activity/volume] in Serum or Plasma 58 U/L 13 - 60 [facility] ID Date Data Source [id number] 06/17/2021 10:28:00 PM EDT [facility] Value Range Interpretation Code Description Data Jenn rce(s) Supporting Document(s) TROPONIN T <0.01 NG/ML 0.00 - 0.10 [facility] TROPONIN T0.1 ng/ml Recommended as the c linical threshold value forTroponin T. ID Date Data Source [id number] 06/17/[facility]21 [facility] Range Interpretation Code Description Data Jenn rce(s) Supporting Document(s) Fibrin D-dimer FEU [Mass/volume] in Platelet poor plasma 0.61 ug /mL 0.27 - 0.50 H [facility] ID Date Data Source [id number] 06/17/2021 10:17:00 PM EDT [facility] Name Value Range Interpretation Code Description Data Jenn rce(s) Supporting Document(s) Prothrombin time (PT) 12.6 SECONDS 11.0 - 15.5 [facility] INR in Platelet poor plasma by Coagulation assay 0.93 0.93 - 1. 23 [facility] aPTT in Blood by Coagulation assay 28.5 SECONDS 24.8 - 36.7 [facility] \\BLDo\\INR INTERPRETATION\\BLDx\\ Therapeutic range for Coumadin and related oral anticoagulants. - International Normalized Ratio (INR): 2.0 - 3.0 for Venous Thrombosis, Pulmonary Embolus, Tissue heart valves, Acute [place] Atrial Fibrillation, Valvular heart disease and recurrent Systemic Embolism. - International Normalized Ratio (INR): 2.5 - 3.5 for Mechanical Prosthetic valve. ID Date Data Source [id number] 06/17/2021 10:12:00 PM EDT [facility] Name Value Range Interpretation Code Description Data [facility](s) Supporting Document(s) CBC W/AUTOMATED DIFF [facility] COMPLETE BLOOD COUNT Leukocytes [#/volume] in Blood by Automated count 7.0 10^3/uL 4.2 - 1 1.0 [facility] Erythrocytes [#/volume] in Blood by Automated count 3.98 10^6/uL 4. 20 - 5.40 L [facility] Hemoglobin [Mass/volume] in Blood 11.3 g/dL 12.0 - 16.0 L [facility] Hematocrit [Volume Fraction] of Blood by Automated count 34.7 % 3 7.0 - 47.0 L [facility] Erythrocyte mean corpuscular volume [Entitic volume] by Auto mated count 87.2 fL 81.0 - 101 [facility] Erythrocyte mean corpuscular hemoglobin [Entitic mass] by Automated count 28.4 pg 27.0 - 34.0 [facility] Erythrocyte mean corpuscular hemoglobin concentration [Mass/volume] by Automated count 32.6 g/dL 31.0 - 36.0 [facility] Erythrocyte distribution width [Ratio] by Automated count 16.0 % 11.5 - 14.5 H [facility] Platelets [#/volume] in Blood by Automated count 275 10^3/uL 150 - 45 0 [facility] Platelet mean volume [Entitic volume] in Blood by Automated count 8.6 fL 7.4 - 10.4 [facility] Neutrophils/100 leukocytes in Blood by Automated count 64.0 % 37. 0 - 80.0 [facility] Lymphocytes/100 leukocytes in Blood by Manual count 26.8 % 25.0 - 40.0 [facility] Monocytes/100 leukocytes in Blood by Automated count 7.3 % 3.0 - 8.0 [facility] Eosinophils/100 leukocytes in Blood by Automated count 1.4 % 0.0 - 7.0 [facility] Basophils/100 leukocytes in Blood by Automated count 0.1 % 0.0 - 2.5 [facility] %IG 0.4 % 0.0 - 0.0 [facility]NR[facility] 0.0 % 0.0 - 0.0 [facility] Neutrophils [#/volume] in Blood by Automated count 4.47 10^3/uL 2.00 - 6.90 [facility] Lymphocytes [#/volume] in Blood by Automated count 1.87 10^3/uL 0.60 - 3.40 [facility] Monocytes [#/volume] in Blood by Automated count 0.51 10^3/uL 0.00 - 0.90 [facility] Eosinophils [#/volume] in Blood by Automated count 0.10 10^3/uL 0.00 - 0.70 [facility] Basophils [#/volume] in Blood by Automated count 0.01 10^3/uL 0.00 - 0.20 [facility] #IG 0.03 10^3/uL 0.00 - 0.10 [facility] #NRBC 0.00 10^3/uL 0.00 - 0.00 [facility] MANUAL DIFF NOT INDICATED [facility] RBC MORPH NOT INDICATED [facility] ID Date Data Source [id number] 06/10/2021 04:02:00 PM EDT [facility] ([facility], [facility]) Name Value Range Interpretation Code Description Data Jenn rce(s) Supporting Document(s) Bacteria identified in Urine by Culture Laboratory test result [facility] ([facility], [facility]) FULL REPORT IN LAB NOTES ([facility] and [facility] ). NO GROWTH ID Date Data Source JYOTI TITER & PATTERN 05/13/2021 12:00:00 AM EDT [facility]CW1 ([facility]) Name Value Range Interpretation Code Description Data Jenn rce(s) Supporting Document(s) Positive . JYOTI (HEP2) eCW1 ([facility]) ID Date Data Source VITB12 & FOL 05/13/2021 12:00:00 AM EDT eCW1 ([facility]) Name Value Range Interpretation Code Description Data Jenn rce(s) Supporting Document(s) 13.6 FOLATE eCW1 ([facility]) 188 VITAMIN B12 LEVEL eCW1 ([facility]) ID Date Data Source FREE T4 & TSH PANEL 05/13/2021 12:00:00 AM EDT eCW1 ([facility]) Name Value Range Interpretation Code Description Data Jenn rce(s) Supporting Document(s) 1.990 0.358-3.740 THYROID STIMULATING HORM ONE [facility]) 1.11 0.76-1.46 FREE T4 eCW1 ([facility]) ID Date Data Source ERYTHROCYTE SEDIMENTATION RATE 05/13/2021 12:00:00 AM EDT eC W1 [facility]) Name Value Range Interpretation Code Description Data Jenn rce(s) Supporting Document(s) 7 0-20 ERYTHROCYTE SEDIMENTATION RATE eCW1 ([facility]) ID Date Data Source C REACTIVE PROTEIN QUANTITATIV (At [facility]) 05/13/2021 12:00 :00 AM EDT eCW1 [facility]) Name Value Range Interpretation Code Description Data Jenn rce(s) Supporting Document(s) 0.41 0.00-0.30 C REACTIVE PROTEIN QUANTI TATIV eCW1 ([facility]) ID Date Data Source CBC with Differential 03/22/2021 12:00:00 AM EDT eCW1 ([facility]) Name Value Range Interpretation Code Description Data Jenn rce(s) Supporting Document(s) 6.8 4.0-10.0 WHITE BLOOD COUNT eCW1 ([facility]) 90.2 80.0-96.0 MEAN CORPUSCULAR VOLUME e CW1 ([facility]) 33.1 36.0-47.0 HEMATOCRIT eCW1 ([facility]) 3.67 4.00-5.40 RED BLOOD COUNT eCW1 ([facility]) 10.6 12.0-15.5 HEMOGLOBIN eCW1 ([facility]) 280 150-450 PLATELET COUNT, AUTOMATED eCW1 ([facility]) 14.4 11.5-14.5 RED CELL DISTRIBUTION WID TH eCW1 ([facility]) 32.0 32.0-36.5 MEAN CORPUSCULAR HGB CONC eCW1 ([facility]) 28.9 27.0-33.0 MEAN CORPUSCULAR HEMOGLOB IN eCW1 ([facility]) 2.8 0.0-3.0 EOS % eCW1 ([facility]) 9.6 2.0-8.0 MONO % eCW1 ([facility]) 29.0 24.0-44.0 LYMPH % eCW1 ([facility]) 57.9 36.0-66.0 NEUTROPHILS % eCW1 ([facility]) 0.7 0.0-0.8 MONO # eCW1 ([facility]) 0.3 0.0-1.0 BASO % eCW1 ([facility]) 2.0 1.5-5.0 LYMPH # eCW1 ([facility]) 3.9 1.5-8.5 NEUTROPHILS # eCW1 ([facility]) 0.2 0.0-0.5 EOS # eCW1 ([facility]) 0.0 0.0-0.2 BASO # eCW1 ([facility]) ID Date Data Source [id number] 12/31/2020 07:50:54 AM EST [facility] NT INFORMATIONPatient MRN Name Date of Age Gend*PT [id number] Teressa Carter 1970 50 years F ---PT Location Admission Date/Time Visit ID Attending Provider --- --- --- --- EPI ID CSN Admitting Provider [id number] ---I have reviewed all the pertinent notes for Teressa Carter and agree with thedocumentation.Lavelle Rios MD Name Value Range Interpretation Code Description Data Jenn rce(s) Supporting Document(s) ID Date Data Source [id number] 12/30/2020 02:29:15 PM EST [facility] NT INFORMATIONPatient MRN Name Date of Age Gend*PT [id number] Teressa Carter 1970 50 years F ---PT Location Admission Date/Time Visit ID Attending Provider --- --- --- --- EPI ID CSN Admitting Provider [id number] ---Cardiology History and PhysicalName: Teressa Carter Gender: femaleDate of : 1970 Age: 50 yearsPrimary Care Provider / Referring Physician: [facility] ALE[facility] Telemedicine VisitPatient was identified by name and date of .Verbal consent was obtained from the patient for this telemedicine visit.Patient is aware of the risks, limitations, and benefits of a telemedicinevisit.This telemedicine assessment was conducted remotely with the assistance ofInternetVistaommunication technology: Telephone Only Codes 28805: 5- 10 minutes of medicaldiscussion:Telephone OnlyCurrent HistoryChief Complaint: Follow-up imaging/Holter resultsHPI: Teressa Carter is 50 years female being seen today for a telemedicine visitfor follow-up of below.1. Crohn's disease followed by GI2. Recently diagnosed with lupus 12/2020 -thought caused by Humira3. History of PFO4. Raynaud's disease5. History of TIASpoke with patient via telemedicine due to COVID-19 concerns. Since her lastappointment in our office patient underwent echocardiogram and event monitorplacement. We reviewed these results in detail during today's visit. Patientcontinues to experience some shortness of breath without her mask on. She willdiscuss further with her primary care provider and ask about pulmonary functiontesting. She denies any chest pains. She denies abnormal heart racing orpalpitations. Denies further TIAs or CVAs.Review of SystemsOther than that noted above in the history of present illness, the patientstates:CONSTITUTIONAL: No change in weig ht, No weakness, No fatigue and No fevers,sweats, or chillsEYES: No vision changes or dischargeENT: No hearing loss,rhinitis,hoarseness,massesPULMONARY: No cough, sputum, or hemoptysis, No wheezing, No shortness or breathand No recent change in breathingCARDIOVASCULAR: No chest pain, No shortness of breath, No dyspnea on exertion,No orthopnea, No paroxysmal nocturnal dyspnea, No edema, No palpitations and NosyncopeGASTROINTESTINAL: No abdominal pain, No change in bowel habits, No significantchange in appetite, No nausea, vomiting, diarrhea, or constipation, Nohematemesis, No blood in stools or black tarry stools, No dysphagiaGU : No dysuria, No frequency, No incontinence and No urgencyHEMATOLOGIC: No coagulation disorder, No anemia, No abnormal bleeding, NobruisingEXTREMITIES: No pain, redness or swelling on the jointsSKIN/INTEGUMENTARY: No rash and No itchingNEUROLOGIC: Normal balance and No weaknessPSYCHIATRIC: No depression, No anxiety and No psychosisALLERGY/IMMUN: No allergic triggersENDOCRINE: No thyroid trouble and No excessive thirst or urinationSLEEP: No sleep disordersPast HistoryPast Medical History:Diagnosis Date Anemia Cerebral aneurysm Cervical pain 2010 paracervical sprain (chronic) C5-6 bulge C6-7 bulge Crohn's disease Endometriosis Folate deficiency GERD (gastroesophageal reflux disease) IBS (irritable bowel syndrome) Lupus Migraine Neurologic disorder 2016 aneurysen in brain 1.2 mm PFO (patent foramen ovale) Raynaud's disease Stroke TIA Vitamin D deficiency Vitamin D deficiency Weakness of both armsPast Surgical History:Procedure Laterality Date APPENDECTOMY chest monitor COLON SURGERY 04/2005 bowel resection COLPOSCOPY CYSTECTOMY Right ESOPHAGOGASTRODUODENOSCOPY OOPHORECTOMY Right PILONIDAL CYST DRAINAGE age 21 TONSILLECTOMY adenoidsFamily HistoryProblem Relation Age of Onset Heart disease Mother Cancer Mother breast Migraines Father Arthritis Father Migraines Sister Epilepsy Daughter Cancer Maternal Aunt Cancer Paternal Aunt Parkinsonism Maternal Grandmother defects Paternal Grandmother defects Paternal Grandfather Cancer Maternal Aunt Cancer Cousin Cancer Paternal AuntSocial HistorySocioeconomic History Marital status: Spouse name: Not on file Number of children: Not on file Years of education: Not on file Highest education level: Not on fileOccupational History Not on fileSocial Needs Financial resource strain: Not on file Food insecurity: Worry: Not on file Inability: Not on file Transportation needs: Medical: Not on file Non-medical: Not on fileTobacco Use Smoking status: Never Smoker Smokeless tobacco: Never UsedSubstance and Sexual Activity Alcohol use: Yes Comment: 2-4 times per month Drug use: Never Sexual activity: Not on fileLifestyle Physical activity: Days per week: Not on file Minutes per session: Not on file Stress: Not on fileRelationships Social connections: Talks on phone: Not on file Gets together: Not on file Attends faith service: Not on file Active member of club or organization: Not on file Attends meetings of clubs or organizations: Not on file Relationship status: Not on file Intimate partner violence: Fear of current or ex partner: Not on file Emotionally abused: Not on file Physically abused: Not on file Forced sexual activity: Not on fileOther Topics Concern Bike Helmet Not Asked History of Falls Not Asked Self-Exams Not Asked Caffeine Concern Not Asked Hobby Hazards Not Asked Sleep Concern Not Asked Daily Calcium Supplement Not Asked Lead Exposure Not Asked Special Diet Not Asked Daily Vitamin D Supplement Not Asked Service Not Asked Stress Concern Not Asked Domestic Violence in home Not Asked Radon exposure Not Asked Weight Concern Not Asked Exercise Not Asked Seat Belt Not Asked Well water Not Asked Firearms in home Not AskedSocial History Narrative Not on fileMedications and AllergiesALLERGIES/SENSITIVITIES: Amoxicillin; Skelaxin [metaxalone]; Zanaflex[tizanidine hcl]; and MetoclopramideCurrent Outpatient Medications: aspirin EC 81 MG EC tablet, Take 81 mg by mouth daily, Disp: , Rfl: Cholecalciferol (VITAMIN D-3) 25 MCG (1000 UT) CAPS, Take 2,000 Units bymouth daily, Disp: , Rfl: fluticasone (FLONASE) 50 MCG/ACT nasal spray, 1 spray into each nostril asneeded , Disp: , Rfl: hydrOXYzine (ATARAX) 25 MG tablet, Take 50 mg by mouth nightly , Disp: , Rfl: hyoscyamine (ANASPAZ,LEVSIN) 0.125 MG tablet, Take 0.125 mg by mouth every 4(four) hours as needed for cramping, Disp: , Rfl: lamoTRIgine ER (LAMICTAL) 25 MG TB24, Take 50 mg by mouth daily , Disp: ,Rfl: Magnesium Oxide (MAG-OX) 400 MG tablet, Take 400 mg by mouth nightly , Disp:, Rfl: ondansetron (ZOFRAN-ODT) 4 MG disintegrating tablet, Take 8 mg by mouth every8 (eight) hours as needed for nausea , Disp: , Rfl: pantoprazole (PROTONIX) 40 MG tablet, Take 40 mg by mouth 2 (two) times a day, Disp: , Rfl: TO-Rrb-LB-Baldwin-3 ( GUMMIES/DHA & FA) 0.4-32.5 MG CHEW, Chew1 Dose daily, Disp: , Rfl: pseudoephedrine (SUDAFED) 30 MG tablet, Take 60 mg by mouth 2 (two) times a day Sustained release, Disp: , Rfl: Riboflavin (VITAMIN B-2) 100 MG TABS, Take 200 mg by mouth 2 (two) times aday, Disp: , Rfl: sertraline (ZOLOFT) 100 MG tablet, Take 150 mg by mouth daily , Disp: , Rfl: SUMAtriptan (IMITREX) 100 MG tablet, Take 100 mg by mouth every 2 (two) hoursas needed for migraine Take one by mouth at onset of headache. May repeat onceafter 2 hours if needed., Disp: , Rfl: SUMAtriptan (IMITREX) 6 MG/0.5ML SOLN, Inject 6 mg under the skin daily asneeded, Disp: , Rfl: al mag cywpw-asxjjafxvformba-dtzivnn lidocaine (MAGIC MOUTHWASH) suspens ion,SWISH AND SPIT 5 MLS BY MOUTH 3 TO 4 TIMES PER DAY, Disp: , Rfl: botulinum toxin type A (BOTOX) 100 units SOLR, Inject 32 Units as directedonce For migraines every three months, Disp: , Rfl: busPIRone (BUSPAR) 15 MG tablet, Take 15 mg by mouth 2 (two) times a day,Disp: , Rfl: drospirenone-ethinyl estradiol (FRANK) 3-0.02 MG per tablet, Take 1 tablet bymouth daily, Disp: , Rfl: NON FORMULARY, Take 2 each by mouth daily Viactive, Disp: , Rfl: traZODone (DESYREL) 50 MG tablet, TAKE 1 TO 2 TABLETS BY MOUTH EVERY DAY ATBEDTIME NEEDED, Disp: , Rfl:PhysicalPHYSICAL EXAM: Deferred due to Telemedicine encounterVital Signs: Unable to be obtained from the patient. Patient does not have a BPCuff available to obtain a blood pressure.Vitals: 12/30/20 1309Weight: 65.8 kg (145 lb)DiagnosticsLabs:Lab ResultsComponent Value Date NA 140 03/21/2020 K 4.3 03/21/2020 CL 106 03/21/2020 CO2 26 03/21/2020 BUN 14 03/21/2020 CREATININE 1.02 (H) 03/21/2020 GLU 75 03/21/2020Lab ResultsComponent Value Date INR 0.97 03/21/2020Imaging/Testing: N/AEKG: Deferred due to Telemedicine encounterImaging results were reviewed with the patient. and Other medical recordsreviewed.Assessment & PlanReason for Today's Telemedicine Visit: Follow-up visitPlan:1. Shortness of breath; patient's echocardiogram shows normal heart functionwith no regional wall motion abnormalities. No significant valve disease.Patient's event monitor showed no sustained or malignant arrhythmias. She willdiscuss symptoms further with her primary care provider.2. Crohn's disease; followed closely by gastro enterology.3. History of TIA; denies any further symptoms. Is on antiplatelet therapy.4. Lupus; we will continue to monitor. Patient also follows closely with PCP.iFollow-up in cardiology clinic in 6 monthsTelemedicine Visit SummaryI have spent 10 minutes with the patient, counseling/coordinating the patient'scare.I discussed the diagnosis of as above and discussed Compliance , Risk FactorReduction and Patient and Family EducationSignature: JERONIMO Longate: December 30, 2020Time: 2:29 PMThis document or parts of this document, were dictated using [employer]. A reasonable attempt at proofreading has been made to minimize errors.Please call with any questions or corrections. Name Value Range Interpretation Code Description Data Jenn rce(s) Supporting Document(s) ID Date Data Source [id number] 12/25/2020 07:06:00 PM EST [facility]ENT ([facility]) Name Value Range Interpretation Code Description Data Jenn rce(s) Supporting Document(s) Bacteria identified in Throat by Culture Laboratory test result MED[facility] ([facility]) Rx Magic Mouth wash. ID Date Data Source CHLAMYDIA, GC & TRICH AMP 12/20/2020 12:00:00 AM EST eCW1 ([facility]) Name Value Range Interpretation Code Description Data Jenn rce(s) Supporting Document(s) NOT DETECTED NEGATIVE eCW1 ([facility]) ID Date Data Source [id number] 10/08/2020 07:03:26 PM EST [facility] Name Value Range Interpretation Code Description Data Jenn rce(s) Supporting Document(s) &PDF [facility] CQJBCw7aEsSSXzHk66/WHSnbQIQic6NcNYicSZw7YBskPKDgM7EtcJphLI4YXodWIaqDFTpYEKCWFQ8j yKE [file] 0K ID Date Data Source [id number] 09/10/2020 02:15:00 PM EDT [facility] Name Value Range Interpretation Code Description Data Jenn rce(s) Supporting Document(s) Follow Up [facility] YAMEZl3mDgEKKnIyYVMdQnxVVEhtMUjfJCKeG5R6OHbpPi8XBUsvszKnJDRwCu5+XHMgSJ0rwk4bTSLo gMy [file] 1IIbtat+YWvraskyRA+WBEMGDwR+Lb5yBLWQlm+FARM LABORER [file] Jhtmx1vfp1p55gaZiYhamsg50mXpfiTQ53M38w/ [file] BP+jenna//Nv6HnklH3VZP/Fk6xZNPUSFaC96xtZK4g7zZb+ZLR5ar7axuCfuEYFnQe8l8c+ZEVGQN4me8 zQyHMgHvqOaXpG8/NoZZ4MdFsTanHd5w48msur0VnkImqnOPEq3zIu7BW0AgumKGDvPAMSxHe787NZzr bKcqdaV95iLa4Eua2mZC8kQEcp3muT/XKUWDMVP76S b9MjgCeqPdYXNsV4u4iklUko5YE2ipgJ7T/hkDQGkRTifKD2xAVRiGXZjbRKZWGL6DG0Hvaz+Q3hLLiQ L46iz/eiA0ZMk/I2ami7UerR+pslE+IaCP9YoXvP2PXpHIWKfXXuUiQS+Ykrb28zTmrcwCtlJ6sxC5JA 6fkfAxITIDvD9b9nMq6JwI4AqtEiUQhYibOZerqBgq c6gNrGsWADTDtYazWFK0iod32O5WAhANPpcE3lOLFpx/3l35anRWd13yGLWLmUW/7JqDC9XfHrFXkiPs hH7/lfbUZ2kJqSR/PvERhogl0ktcW2HpdwYtLW98dqVMWF+4yuO3aoP4kdkxObvFhWAyqOamj0LtOAS/ PFax3Vau31FXeHUT7Ui5omGsU2Ohu0y9wdA75Sm7jX t2q/5zUVLaVSLqFzMEshsGtIdS81NCQ6AtUI9gYKxPFK3tCCk0JRvMUJiHCM0qeGKVVFY4NWWiYGkIpk ho1KtfrL855/5wF4dls6S+r7+CLBUcpEVgaf+Gdp8c5uL19bpH5Jk51wfeua0zpJ0hgV1A39jU8IdpOG yepNNvYd26VFrqfuwKSCq0UJRwh8nvAnLQQ8QaIMR2 iDie46f9z2C+v6NRt7tcsh4h8Wly4po806WLljhH1uIVGBINmCHAZK5gw99kE84S1L8gwVBVfiuRBu0c fK2Wb2mUolDP14aJzZrW0jM0/P+bqXiN3C/4pceWUQIVLAU46ce2UssriQodZ7SjdIR7VsSzAmLSsOaN qQ7aJ6qLvT8IjnAM3VjZmZQ4URf6hifL6RPkAZWL90 s043UAoNBVKf8UAIUql6CyqLARN5lkwqn9e2zJE2ZaOax5q82MQiyYawJh6smYJFk5EPs54q+Chain Tender+dui [file] aGKkiZ6jDinyntNwqnKDEEvpOvxo2czkM+uDydt+Bleach Maker [file] iRvyRS5sNiuYe4QyOaVP/REfE4XFyv2lekb+zArtYmLbqlbfCoyXCo91NDdchZILRhrFM+zLA3st+Moving Van Driver [file] /XfulX5p5mV6+dcQ0gZybrpwSJIgqBn/Area Supervisor+CJ7/n/ [file] qcmrMlpT9td5agVPnurIu+zG1oxC+6rOvMM9iPQjOJwejKdYlrKJ/xEklfYJLdzBHlfl7rskAKaZO/lining caser [file] 3JGhb6SL+9C2at/8y+FhpcBpkKrEwV+Th7ouhZbD80eoE2Bfu6GiR2vLL/CdFSoPnmLLri8Dv99s+maria teresa [file] concrete vibrator operator/UZaAzSzVdyvBQ1KbOzwCjjc0O+KungnfE4mjnMmCykkmzBmeHky77acRSa+qC6R84AIGY3rYJzzW [file] PsWOO9ZqMyeiHBks8YhvbUncJuXcdm7+xmJNR+Y2Ro0zPkfv+boiler installer/jzSQnG9y9ZTZndl4y972mqhNpoh [file] 04yzU9ylmoqQis+lining caser/LaLibihhZI2gpmFiD3dU0UDM7u/5THxQgSlk1M8E1s51eIYHrQAs1scvTlJQla [file] rEB23BKek2/E7tX181YwYDXPEiNHsgDVCo4/gzsJgs3+sj9GW6QqkGmDV/whittling room operator+S4XfYF7pzb/8tTtmba lq4vVdAh/2Te0qFDpY+BK8B/IQIoSLJhsnkr6UkPSA0bBjOEZW5CFjc8Z7TVwycO/iwvXwLrdFzioLh8 SYrD2mErKqH8OPeBj9qhM63/9Y9kNxKh+nbaecY8Tv J/xCqyDB30FFMLio/AP5C4oWhP3EIWRaMm30evmNpLXqZ/a+Adelina+8sY7YvaF+fj0y3ZG4ipDsbK4tLSS PlMKB9HEUiyLrUWWBMJ65+EqcVuQtL+gE5hL7R33Ln8boiT8ZCZCr/GCHq5hYQOuYV+DcBEP92P8nYck 6+Zi/8tzPN2EHe5lHMWO0+ifkcV0jsmA3jd6NepnO6 VTh32nfVrh/RJ49RnGRM52YoD583pgf7GjUiRfznb7wokZ24im7Rbpf39+ywZtH+35vZcYo1M6/IPOOW 181y1LXlOFdWmp90LPsn+LrF63pgsVxzs3oiAXF/sx1e8cZetPpr61xSom6cVd7+oIk2dEObVPF4RQiS 7DSPUYN+V/9lYLCBsqFTkS4aybU44p/C5TXEnybkPv 1vsTuwaV/YeeB1ccim1XnxYIEBE8xx/V8LC9M7V6ArDWUlz88eDLIasNttBj7ssEqnIXb3bbO858v4sz 4z+/5NSLLPjLuGJYTCJRMpsz+kl/RjWreshZyVJYlLD7Qj39ufa3UyPQpfgzGq+Cs1Wz6b7PweLPPAdn U7uO5zzoBI8ndd0IXFdOg8hBdWTz6iuUxo4kCDWYYn bJVTgvfNXq17R8WbsyIlwBAxdsc1cEvgaLSYnOcGa/KJu0f8y61W5xEamL4Suv0+H7Ze3D2sO/NpmtZw HVLD2rrpqZJFXvJ3LBE7N4vtioZir1tIMI37UrYFnpQmF/p4Tq1k8tFCy6VAJk+TXH6yC+b9WiURnN5r 6vigZSFU8gyKWiFKEVAzxqzLeTVJVICSKVIGrulVh/ [file] yaG4+F10WFl/5k3RmNQQ6fPzc8kd1q7r9966/11Up9jRquwpn0BFz1ymZvxGSE4yvsjxR6oHRX/yoli+D Hng/y8/ThjLTF6kUmaDf6Yltk2uXb7PZKpJL60jPxt 4OjEhURtXtw1Dd8tEmNi9GB4H39KGD3jXEG0krWlM3xaD/dYLdqsSUgys45Jtjygzqfnpx7ZOfMY4f/K arFFhoGrriO2ViZ/gfYgWRg0aCprl0p5rNCYKDr88OTkWlamUR/0B1Mxg+0PkyfIEsC93X6Un7monT1X o//4q64hIxRbxEcEUc+6LaPkuzlZq1Mr6PHIvuguM4 kI2V1sg7opKgSxS2nWPAVduXc+Pedro Luis+l7hGpfVm9jK0PaZ0/UHB/aybAarxl6o99tg2Ht7v9EP+GyiI88 [file] concrete vibrator operator/gQgvEjifD0yFYChxBkbqyvhEj79LQFxgHX2ASED3y95P+9LScYiY28lW0AEge5RR305ZFxVDpZRO [file] Case Management Coordinator/Y+79R237FEV+mCQyxGwDw/w6Av+e2fTWmtUu0g9 [file] 6JodAjn0Q+LkpCxKrb8uhHyAcMb+QLIaj2p7jvWVB98K9S+gsG1aaM1wH+UoPofBK7V+Case Management Coordinator/6iU/rC95D [file] it risk and assurance manager+85vLKagTXzDVlc78/JN71KYy/5TF8xwmbcnpwCkAIJzAMcUwk/t1EUu32BGbpCkGQR5RPZg+MNPO [file] Ib/ayD20ia4OezgxEhBS0SHp7XEHEYVPRnS3lD/FMy8mTkWUQF71MlbRzRJv0zZ6dHuNeXaYUGrng/counselor dormitory [file] iQQzXbHPV5nqCpyN6ZTU1qd0AsVL2Yo6CvjwL4cnSvVBusClE9GgC3UUvgBUIGTg== ID Date Data Source [id number] 08/30/2020 04:46:00 PM [facility] Hematopathology ReportName: JAMESHUSAMCAIOBROOKEGERSONN: [id number] Number: [id number] Date: 08/28/2020 11:40Received Date: 08/29/2020 13:36Physician(s): TYRONE MERCADO MD ADJAPONG, OPOKU,[facility]imen(s) ReceivedA: Fine Needle Aspiration, Flow Cytometry; Received FNA of left cervicalLN in RPMIClinical HistoryPostauricular lymphadenopathy.TEST REQUESTED/PERFORMED: Flow cytometry analysis DiagnosisFlow cytometry of left cervical lymph node, FNA: Dilute sample with noevidence of non-Hodgkin lymphoma. Olivia Crocker M.D.;Resident PathologistElectronically Signed By Sarah Castillo M.D. Attending Pathologist 08/30/2020 16:46:10The attending pathologist named above attests that he/she has personallyreviewed the relevant preparation(s) for the specimen(s) and rendered thefinal diagnosis. ProceduresFlow Cytometry Date Ordered:08/29/2020 Status: Signed Out08/30/2020 InterpretationA cytospin shows a few small lymphocytes with mature chromatin and scantcytoplasm. Lymphoma Carlotta Panel The following markers were assayed: CD45 (gate), CD2, CD3, CD4, CD5, CD7,CD8, CD10, CD19, CD20, [place], and Lambda.Events: 986 NOTE: Routinely a minimum of 50,000 events are collected ineach panel tube. Due to sample cellularity and/or processing this numberwas not achievable for this sample.Viability: No viability performed due to low cellularity.Flow Cytometry Differential (CD45/SSC)Lymphocyte [place]: 38%CD45 dim [place]: 0%Monocyte [place]: 1%Granulocyte [place]: 3%Nucleated/Erythroid [place]: 10%The lymphocyte gate showsB- Cells (CD19): 29%[place]/Lambda Ratio: 1.6T-Cells (CD3): 57%CD4/CD8 Ratio: 6.9Results: (expressed as % of lymphocyte gate)B-cell Markers: CD19 = 29, CD19/CD5 = 0Gated on CD19+ cells only: CD19/[place] = 17, CD19/Lambda = 10, CD19/CD10 =5, CD19/CD20 = 27T-cell Markers: CD3 = 57, CD5 = 57Gated on CD3+ cells only: CD3/CD2 = 57, CD3/CD4 = 49, CD3/CD8 = 9, CD3/CD7= 52Results- CommentsLymphocytes consist predominantly of T cells with normal expression of panT-cell markers and an increased CD4/CD8 ratio, and polyclonal B cells.Procedure Electronically Signed By:Sarah Castillo M.D.08/30/2020 This report may include one or more immunohistochemical stain/fluorochromeconjugated monoclonal antibody results that use analyte specific reagents.All positive and negative controls have been reviewed by the attendingpathologist and are satisfactory. The tests were developed and theirperformance characteristics determined by [facility] Pathology department.They have not been cleared or approved by the US Food and DrugAdministration. The FDA has determined that such clearance or approval isnot necessary. Name Value Range Interpretation Code Description Data Jenn rce(s) Supporting Document(s) ID Date Data Source [id number] 07/25/2020 11:13:00 AM EDT [facility] SP[facility] SI JOINTS COMPLETECLINICAL HISTORY: Low back pain, no trauma.COMPARISON: None available.TECHNIQUE: Three viewsFINDINGS: No evidence of erosion or joint space narrowing. No ankylosis. Lower lumbar spine unremarkable.IMPRESSION: Negative study.Dictated by: TENZIN CRAIG M.D. on 07/25/2020 01:51 PM Transcribed by: deloris on 07/25/2020 01:54 PMcc: Name Value Range Interpretation Code Description Data Jenn rce(s) Supporting Document(s) ID Date Data Source [id number] 07/25/2020 11:01:00 AM EDT [facility] ([facility]) Name Value Range Interpretation Code Description Data Jenn rce(s) Supporting Document(s) NEGATIVE (NEG) HEP. B CORE IGM @ [facility] ([facility]) Unless otherwise specified, testing perf ormed by [facility] [address] [place] [id number]

ID Date Data Source [id number] 07/25/2020 11:01:00 AM EDT [facility] ([facility]) Name Value Range Interpretation Code Description Data Jenn rce(s) Supporting Document(s) NEGATIVE (NEG) HEPATITIS C AB @ [facility] ([facility]) NOT INFECTED WITH HCV, UNLESS RECENTINFE CTION IS SUSPECTED OR OTHER EVIDENCEEXISTS TO INDICATE HCV INFECTION.Unless otherwise specified, testing performed by [facility] [address] [place] [id number]

ID Date Data Source [id number] 07/25/2020 11:01:00 AM EDT [facility] ([facility]) Name Value Range Interpretation Code Description Data Jenn rce(s) Supporting Document(s) NEGATIVE (NEG) HEPATITIS B S AG @ [facility] ([facility]) Unless otherwise specified, testing perf ormed by [facility] [address] [place] [id number]

ID Date Data Source [id number]/25/2020 11:02:36 PM EDT [facility] Name Value Range Interpretation Code Description Data Jenn rce(s) Supporting Document(s) HEP. B CORE IGM @ (NEG) [facility] ID Date Data Source [id number]/25/2020 11:02:36 PM EDT [facility] Name Value Range Interpretation Code Description Data Jenn rce(s) Supporting Document(s) HEPATITIS B S AG @ (NEG) [facility] [place] [employer] - CORE ID Date Data Source [id number]/25/2020 11:02:36 PM EDT [facility] Name Value Range Interpretation Code Description Data Jenn rce(s) Supporting Document(s) HEPATITIS C AB @ (NEG) [facility] NOT INFECT ED WITH HCV, UNLESS RECENTINFECTION IS SUSPECTED OR OTHER EVIDENCEEXISTS TO INDICATE HCV INFECTION. ID Date Data Source [id number] 07/25/2020 10:55:00 AM EDT [facility] ([facility]) Name Value Range Interpretation Code Description Data Jenn rce(s) Supporting Document(s) Negative [id number] TYPING [employer] ([facility] [facility] Reference range: NEGATIVEPERFORMED AT [facility], [address], [place] [address]Fmizeu otherwise specified, testing performed by [facility] [place] [facility] [employer] ([facility] [employer] [facility]),[address] [address]

ID Date Data Source [id number] 07/30/2020 11:55:21 AM EDT Laboratory [facility] of [facility] Name Value Range Interpretation Code Description Data Jenn rce(s) Supporting Document(s) [id number] TYPING Laboratory Allia nce of [facility] NegativeReference range: NEGATIVEPERFORM ED AT [facility], [address] [place] [address] ID Date Data Source [id number] 07/25/2020 10:45:00 AM EDT [facility] ([facility]) Name Value Range Interpretation Code Description Data Jenn rce(s) Supporting Document(s) 4 Units <20 SS-B [facility]) Interpretation: Negative <20; Weak Posit allison 20-39; Moderate Positive 40-80; Positive >80.

ID Date Data Source [id number] 07/25/2020 10:45:00 AM EDT [facility] ([facility]) Name Value Range Interpretation Code Description Data Jenn rce(s) Supporting Document(s) 0.9 mg/dL 0.6-1.2 CREATININE [facility] ([facility]) >60 eGFR [facility]) ID Date Data Source [id number] 07/25/2020 10:45:00 AM EDT [facility] ([facility]) Name Value Range Interpretation Code Description Data Jenn rce(s) Supporting Document(s) 1 Units <20 SS-A [facility]) Interpretation: Negative <20; Weak Posit allison 20-39; Moderate Positive 40-80; Positive >80.

ID Date Data Source [id number] 07/25/2020 10:45:00 AM EDT [facility] ([facility]) Name Value Range Interpretation Code Description Data Jenn rce(s) Supporting Document(s) 44 U/L 26-192 CREATINE KINASE [facility] ([facility]) ID Date Data Source [id number] 07/25/2020 10:45:00 AM EDT [facility] ([facility]) Name Value Range Interpretation Code Description Data Jenn rce(s) Supporting Document(s) 3 Units <20 Sm [facility] Interpretation: Negative <20; Weak Posit allison 20-39; Moderate Positive 40-80; Positive >80.

ID Date Data Source [id number] 07/25/2020 10:45:00 AM EDT [facility] ([facility]) Name Value Range Interpretation Code Description Data Jenn rce(s) Supporting Document(s) 31.0 mg/dL 14.7-40.3 C4 [facility] ([facility]) ID Date Data Source [id number] 07/25/2020 10:45:00 AM EDT [facility] ([facility]) Name Value Range Interpretation Code Description Data Jenn rce(s) Supporting Document(s) 4 Units <20 SCL-70 [facility] Interpretation: Negative <20; Weak Posit allison 20-39; Moderate Positive 40-80; Positive >80.

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

ID Date Data Source [id number] 07/25/2020 10:45:00 AM [facility] Name Value Range Interpretation Code Description Data Jenn rce(s) Supporting Document(s) 16 U/L 15-37 AST [facility] ([facility]) ID Date Data Source [id number] 07/25/2020 10:45:00 AM EDT Critical access hospital ([facility]) Name Value Range Interpretation Code Description Data Jenn rce(s) Supporting Document(s) 2 Units <20 BABATUNDE-1 [facility] ([facility]) Interpretation: Negative <20; Weak Posit allison 20-39; Moderate Positive 40-80; Positive >80.

ID Date Data Source [id number] 07/25/2020 10:45:00 AM EDT Critical access hospital ([facility]) Name Value Range Interpretation Code Description Data Jenn rce(s) Supporting Document(s) 20 U/L 30-65 Below low normal [facility] ID Date Data Source [id number] 07/25/2020 10:45:00 AM EDT [facility] Name Value Range Interpretation Code Description Data Jenn rce(s) Supporting Document(s) 0.18 Units <1.00 Histone [facility] ([facility]) Interpretation: Negative <1.0; Weak Posi tive 1.0-1.5; Moderate Positive 1.6-2.5; Strong Positive >2.5.

ID Date Data Source [id number] 07/25/2020 10:45:00 AM EDT [facility] ([facility]) Name Value Range Interpretation Code Description Data Jenn rce(s) Supporting Document(s) 3.1 g/dL 3.4-4.4 Below low normal ALB [facility] ([facility]) ID Date Data Source [id number] 07/25/2020 10:45:00 AM EDT [facility] ([facility]) Name Value Range Interpretation Code Description Data Jenn rce(s) Supporting Document(s) 3 Units <20 Centromere B [facility] ([facility]) Interpretation: Negative <20; Weak Posit allison 20-30; Positive >30.

ID Date Data Source [id number] 07/25/2020 10:45:00 AM EDT [facility] ([facility]) Name Value Range Interpretation Code Description Data Jenn rce(s) Supporting Document(s) 3 Units <7 RF IgM [facility] ([facility]) ID Date Data Source [id number] 07/25/2020 10:45:00 AM EDT [facility] ([facility]) Name Value Range Interpretation Code Description Data Jenn rce(s) Supporting Document(s) 8 mm/Hr 0-20 ESR [facility] ([facility]) ID Date Data Source [id number] 07/25/2020 10:45:00 AM EDT [facility] ([facility]) Name Value Range Interpretation Code Description Data Jenn rce(s) Supporting Document(s) 2.7 mg/dL 2.4-8.6 URIC ACID [facility] ([facility]) ID Date Data Source [id number] 07/25/2020 10:45:00 AM EDT [facility] ([facility]) Name Value Range Interpretation Code Description Data Jenn rce(s) Supporting Document(s) 1:320 ANATiter1 [facility] ([facility]) Positive 1:320 Above high normal ANAIFA [facility] ([facility]) Speckled ANAPattern1 [facility] ([facility]) ID Date Data Source [id number] 07/25/2020 10:45:00 AM EDT [facility] ([facility]) Name Value Range Interpretation Code Description Data Jenn rce(s) Supporting Document(s) 0.2 mg/dL 0.0-0.5 CRP [facility] ([facility]) ID Date Data Source [id number] 07/25/2020 10:45:00 AM EDT [facility] ([facility]) Name Value Range Interpretation Code Description Data Jenn rce(s) Supporting Document(s) 171 IU/mL <301 ds-DNA [facility] ([facility]) Interpretation: Negative <300; Moderate Positive 300-800; Positive >800.

ID Date Data Source [id number] 07/25/2020 10:45:00 AM EDT [facility] ([facility]) Name Value Range Interpretation Code Description Data Jenn rce(s) Supporting Document(s) 6 Units <20 ANTI-CCP IgG/IgA [facility] ([facility]) ID Date Data Source [id number] 07/25/2020 10:45:00 AM EDT [facility] ([facility]) Name Value Range Interpretation Code Description Data Jenn rce(s) Supporting Document(s) 7.8 10*3/uL 3.7-10.1 WBC [facility] ([facility]) 4.69 10*6/uL 3.50-5.50 RBC [facility] ([facility]) 12.5 g/dL 12.0-16.0 HGB [facility] ([facility]) 40.7 % 36.0-48.0 HCT [facility] ([facility]) 86.8 fL 80.0-100.0 MCV [facility] ([facility]) 26.5 pg 26.0-34.0 MCH [facility]) 16.0 % 10.0-15.0 Above high normal RDW [facility]) 30.6 g/dL 31.0-37.0 Below low normal MCHC [facility] ([facility]) 305 10*3/uL 150-500 PLATELETS [facility] ([facility]) 4.49 10*3/uL 2.10-8.00 HILARIO# [facility]) 2.21 10*3/uL 1.00-5.00 LYM# [facility]) 7.2 fL 6.0-10.0 MPV [facility]) 0.4 10*3/uL 0.0-0.5 EOS# [facility] ([facility]) 0.70 10*3/uL 0.10-1.00 MONO# [facility]) 57.4 % 50.0-80.0 HILARIO% [facility]) 28.2 % 25.0-50.0 LYM% [facility]) 0.1 10*3/uL 0.0-0.2 BASO# [facility] ([facility]) 0.7 % 0.0-4.0 BASO% [facility] 4.8 % 0.0-5.0 EOS% [facility] 8.9 % 2.0-10.0 MONO% [facility]) ID Date Data Source [id number] 07/23/2020 07:39:28 PM EDT [facility] INFORMATIONPatient MRN Name Date of Age Gend*PT [id number] Teressa Carter 1970 49 years F ---PT Location Admission Date/Time Visit ID Attending Provider --- --- --- --- EPI ID CSN Admitting P mike [id number] ---Cardiology Office VisitPatient: Teressa Herrera ObrienDOB: 1970Date of Visit: 07/23/20ubjectiveChief Complaint: Follow-up blood work was drawn 3 weeks agoHPI:Teressa Carter is a 49 years female patient was sent to the emergency room, shesat there for almost 4 hours and walked out. She was actually standing in thesun waiting to get in and was told she had a fever because her skin was hot.Additionally, [facility] but I never received the mostrecent results but her filler feeder did. She is having a reaction p erhapsto her biologic for her Crohn's disease and this has to be discontinued. Herweight is up about 20 or 30 pounds but unchanged from her last office visit.She is still at 166 pounds. Oxygen saturation is 98%. She has recently beenevaluated for pulmonary embolism that was negative and her d-dimer was normal.She does have dyspnea on exertion with decreased exercise tolerance. I am goingto bring her back in 1 week for an echocardiogram.Review of SystemsOther than that noted above in the history of present illness, the patientdenies:GENERAL/CONSTITUTIONAL: The patient denies fever, fatigue, weakn ess, weight gainor weight loss.HEAD, EYES, EARS, NOSE AND THROAT: Eyes - The patient denies pain, loss ofvision, double or blurred vision, flashing lights or spots, Ears, nose, mouthand throat. The patient denies ringing in the ears, loss of hearing, nosebleeds,loss of sense of smell, dry sinuses, sinusitis, post nasal drip, sore tongue,bleeding gums, sores in the mouth, loss of sense of taste, dry mouth,hoarseness, waking up with acid or bitter fluid in the mouth or throat.CARDIOVASCULAR: The patient denies chest pain, irregular heartbeats, suddenchanges in heartbeat or palpitation, shortness of breath, difficulty breathingat night, swollen legs or feet, heart murmurs, high blood pressure, cramps inhis legs with walking, pain in his feet or toes at night or varicose veins.Please refer to HPI.RESPIRATORY: The patient denies chronic dry cough, hemoptysis, waking at nightcoughing or choking, repeated pneumonias, wheezing or night sweats. Pleaserefer to HPI.GASTROINTESTINAL: The patient denies decreased appetite, nausea, vomiting,vomiting blood or coffee ground material, heartburn, regurgitation, frequentbelching, stomach pain relieved by food, yellow jaundice, diarrhea,constipation, gas, blood in the stools, black tarry stools or hemorrhoids.Denies hematemesis, melena, hematochezia.GENITOURINARY: The patient denies change in urination, pain or burning withurination, blood in the urine, cloudy or smoky urine, frequent need to urinate,urgency, needing to urinate frequently at night, inability to hold the urine,nephrolithiasis.MUSCULOSKELETAL: The patient denies arm or leg or buttock claudication. No jointor muscle pain. No muscle weakness or tenderness. No joint swelling, neck pain,back pain or major orthopedic injuries. Patient denies myalgias.SKIN: The patient denies easy bruising, skin redness, skin rash, hives,sensitivity to sun exposure, tightness, nodules or bumps, hair loss, colorchanges in the hands or feet with cold.BREAST: Patient denies breast disease, masses, discharge or lumps.NEUROLOGIC: The patient denies headache, dizziness, fainting, loss ofconsciousness, sensitivity or pain in the hands and feet or memory loss.Patient denies visual changes, subjective visual loss, syn cope, transientischemic attacks or CVAs.PSYCHIATRIC: The patient denies complaints.ENDOCRINE: The patient denies intolerance to hot or cold temperature, flushing,fingernail changes, increased thirst, increased salt intake or decreased sexualdesire. Patient denies polyuria, polydipsia, weight loss, weight gain, frequentillnesses, visual changes, orthostatic changes.HEMATOLOGIC/LYMPHATIC: The patient denies anemia, bleeding tendency or clottingtendency. Patient denies ecchymoses, lumps or bumpsALLERGIC/IMMUNOLOGIC: The patient denies rhinitis, asthma, skin sensitivity,latex allergies or sensitivity. Denies ALLERGY to shellfish or contrast orradiographic contrast.Past HistoryPast Medical History:Diagnosis Date Anemia Cerebral aneurysm Cervical pain 2010 paracervical sprain (chronic) C5-6 bulge C6-7 bulge Crohn's disease Endometriosis Folate deficiency GERD (gastroesophageal reflux disease) IBS (irritable bowel syndrome) Migraine Neurologic disorder 2015 aneurysen in brain 1.2 mm PFO (patent foramen ovale) Raynaud's disease Stroke TIA Vitamin D deficiency Vitamin D deficiency Weakness of both armsPast Surgical History:Procedure Laterality Date APPENDECTOMY COLON SURGERY 04/2005 bowel resection COLPOSCOPY CYSTECTOMY Right ESOPHAGOGASTRODUODENOSCOPY OOPHORECTOMY Right PILONIDAL CYST DRAINAGE age 21 TONSILLECTOMY adenoidsFamily HistoryProblem Relation Age of Onset Heart disease Mother Cancer Mother breast Migraines Father Arthritis Father Migraines Sister Epilepsy Daughter Cancer Maternal Aunt Cancer Paternal Aunt Parkinsonism Maternal Grandmother defects Paternal Grandmother defects Paternal Grandfather Cancer Maternal Aunt Cancer Cousin Cancer Paternal AuntSocial HistorySocioeconomic History Marital status: Spouse name: Not on file Number of children: Not on file Years of education: Not on file Highest education level: Not on fileOccupational History Not on fileTobacco Use Smoking status: Never Smoker Smokeless tobacco: Never UsedSubstance and Sexual Activity Alcohol use: Yes Comment: 2-4 times per month Drug use: Never Sexual activity: Not on fileMedications and AllergiesAllergiesAllergen Reactions Amoxicillin Hives Skelaxin [Metaxalone] Other (See Comments) Diffuse edema Zanaflex [Tizanidine Hcl] Hallucinations Metoclopramide Anxiety and Other (See Comments) Jumps out of her skinCurrent Outpatient MedicationsMedication Sig Dispense Refill aspirin EC 81 MG EC tablet Take 81 mg by mouth daily botulinum toxin type A (BOTOX) 100 units SOLR Inject 32 Units as directed onceFor migraines every three months Cholecalciferol (VITAMIN D-3) 25 MCG (1000 UT) CAPS Take 2,000 Units by mouthdaily fluticasone (FLONASE) 50 MCG/ACT nasal spray 1 spray into each nostril asneeded hydrOXYzine (ATARAX) 25 MG tablet Take 50 mg by mouth nightly hyoscyamine (ANASPAZ,LEVSIN) 0.125 MG tablet Take 0.125 mg by mouth every 4(four) hours as needed for cramping lamoTRIgine ER (LAMICTAL) 25 MG TB24 Take 50 mg by mouth daily Magnesium Oxide (MAG-OX) 400 MG tablet Take 400 mg by mouth nightly naproxen (NAPROSYN) 500 MG tablet Take 500 mg by mouth as needed NON FORMULARY Take 2 each by mouth daily Viactive ondansetron (ZOFRAN-ODT) 4 MG disintegrating tablet Take 8 mg by mouth every 8(eight) hours as needed for nausea pantoprazole (PROTONIX) 40 MG tablet Take 40 mg by mouth 2 (two) times a day AL-Qqk-NS-Baldwin-3 ( GUMMIES/DHA & FA) 0.4-32.5 MG CHEW Chew 1Dose daily SUMAtriptan (IMITREX) 6 MG/0.5ML SOLN Inject 6 mg under the skin daily asneeded pseudoephedrine (SUDAFED) 30 MG tablet Take 120 mg by mouth 2 (two) times aday Sustained release Riboflavin (VITAMIN B-2) 100 MG TABS Take 200 mg by mouth 2 (two) times a day sertraline (ZOLOFT) 100 MG tablet Take 100 mg by mouth daily SUMAtriptan (IMITREX) 100 MG tablet Take 100 mg by mouth every 2 (two) hoursas needed for migraine Take one by mouth at onset of headache. May repeat onceafter 2 hours if needed.No current facility-administered medications for this visit.PhysicalVitals: 07/23/20 1553BP: 126/88Pulse: 876LuQ1: 98%Weight: 75.3 kg (166 lb)LMP: 07/01/2020Physical Exam:HEENT is unremarkable. EOMs full, pupils equal round react light andaccommodate.Neck: Trachea is midline, there is no JVD, there are no bruits. Range of motionis normal.Cardiac: S1, S2, physiologically split. Rhythm is regular. There is no S3. Thereis no S4. PMI is in the fourth LICS AAL. There is a 2/6 systolic ejection murmurheard best in the second left intercostal space left sternal border. There is a1 to 2/6 mitral insufficiency murmur heard best in the fourth left intercostalspace left sternal border radiating to the apex. There were no lifts, heaves,rubs or thrills.Lungs: Are clear to auscultation and percussion without rhonchi, rubs rales orwheezes.Abdomen: Is soft.Back: Is benign. There is no CVAT.Extremities: Are without erythema, cyanosis, clubbing or edema. Pulses are 2+and equal throughout.Vascular: Upper extremity pulses are 2+ and equal throughout. Lower extremitypulses are 2+ and equal throughout.Neurologic/psychiatric: Cranial nerves, strength, sensory, reflexes, cerebellum,orientation, mood and affect are unremarkable. A very cursory psychiatricexamination exhibits no obvious psychiatric issues.Skin: Is warm and dry.DiagnosticsLab:No visits with results within 1 Month(s) from this visit.Latest known visit with results is:Office Visit on 03/21/2020Component Date Value Ref Range Status BSA 03/22/2020 1.76 m2 Final-Edited Pt Height 03/22/2020 1.63 m Final-Edited Weight 03/22/2020 71.12 kg Final-Edited Systolic BP Echo 03/22/2020 108.00 mmHg Final-Edited Diastolic BP Echo 03/22/2020 70.00 mmHg Final-Edited LA size 03/22/2020 3.44 cm Corrected LA size 03/22/2020 3.58 cm Corrected LA size 03/22/2020 3.67 cm Corrected LA size 03/22/2020 3.81 cm Corrected LA size 03/22/2020 3.95 cm Corrected LA size 03/22/2020 4.07 cm Corrected LA size 03/22/2020 4.21 cm Corrected LA size 03/22/2020 4.38 cm Corrected LA size 03/22/2020 4.47 cm Corrected LA size 03/22/2020 4.24 cm Corrected LA size 03/22/2020 3.75 cm Corrected LA size 03/22/2020 2.69 cm Corrected LA size 03/22/2020 2.43 cm Corrected LA size 03/22/2020 2.15 cm Corrected LA size 03/22/2020 2.01 cm Corrected LA size 03/22/2020 1.78 cm Corrected LA size 03/22/2020 1.75 cm Corrected LA size 03/22/2020 1.63 cm Corrected LA size 03/22/2020 1.38 cm Corrected LA size 03/22/2020 1.00 cm Final Left atrial length medial-lateral * 03/22/2020 4.30 cm Final-Edited Left atrial length superior-inferi* 03/22/2020 4.20 cm Final-Edited LA Area Sys (A2C) 03/22/2020 12.70 cm2 Final-Edited LA Area Sys (A4C) 03/22/2020 11.10 cm2 Final-Edited LA ESV (A2C) 03/22/2020 35.00 cm3 Final-Edited LA volume 03/22/2020 22.90 cm3 Corrected LA volume 03/22/2020 27.60 cm3 Final Left Atrium Major [place] 03/22/2020 2.80 cm Final-Edited LA/Ao Ratio 03/22/2020 0.80 no units Final-Edited Right Atrium Pressure 03/22/2020 10.00 mmHg Final-Edited Aortic valve mean velocity 03/22/2020 0.96 m/s Final-Edited AV mean gradient 03/22/2020 4.00 mmHg Final-Edited Aortic valve velocity time integral 03/22/2020 31.80 cm Final-Edited Ao peak faby 03/22/2020 1.35 m/s Final-Edited AV peak gradient 03/22/2020 7.00 mmHg Final-Edited Aortic arch 03/22/2020 2.90 cm Final-Edited Ao root annulus 03/22/2020 3.50 cm Final-Edited Ascending aorta 03/22/2020 3.10 cm Final-Edited Inferior Vena Cava Diameter 03/22/2020 1.84 cm Final-Edited IVS 03/22/2020 0.51 0.6 - 1.1 cm Final-Edited LVIDD 03/22/2020 4.74 3.5 - 6.0 cm Final-Edited LVIDS 03/22/2020 3.03 2.1 - 4.0 cm Final-Edited LVOT diameter 03/22/2020 2.0 cm Final-Edited LVOT mn grad 03/22/2020 2.0 mmHg Final-Edited LVOT peak VTI 03/22/2020 19.30 cm Final-Edited LVOT Mean Faby 03/22/2020 0.63 m/s Final-Edited LVOT peak faby 03/22/2020 0.84 m/s Final-Edited AV LVOT peak gradient 03/22/2020 3.00 mmHg Final-Edited PW 03/22/2020 0.83 0.6 - 1.1 cm Final-Edited MV E' Lateral Tissue Faby 03/22/2020 0.14 m/s Final-Edited MV E' Tissue Velocity Lateral 03/22/2020 0.10 m/s Final-Edited LV Systolic Volume 03/22/2020 27.80 cm3 Final-Edited E/E' Lateral Ratio 03/22/2020 6.70 no units Final-Edited LVOT area 03/22/2020 3.14 cm2 Final-Edited LVOT stroke volume 03/22/2020 60.60 cm3 Final-Edited E wave decelartion time 03/22/2020 259.00 ms Final-Edited MV Peak A Faby 03/22/2020 0.73 m/s Final-Edited MV Peak E Faby 03/22/2020 0.93 m/s Final-Edited E/A ratio 03/22/2020 1.27 Final-Edited PV PEAK VELOCITY 03/22/2020 0.64 m/s Final-Edited PV peak gradient 03/22/2020 2.00 mmHg Final-Edited RVDD 03/22/2020 3.18 cm Final-Edited Estimated r vent sys pressure by t* 03/22/2020 26.00 mmHg Final-Edited Tricuspid valve peak regurgitation* 03/22/2020 2.00 m/s Final-Edited Triscuspid Valve Regurgitation Pea* 03/22/2020 16.0 mmHg Final-Edited FS 03/22/2020 36 28 - 44 % Final-Edited EF 03/22/2020 61 % Final-Edited AV Velocity Ratio 03/22/2020 0.62 Final-Edited LV Systolic Volume Index 03/22/2020 15.8 mL/m2 Final-Edited Target HR 03/22/2020 148 bpm Final-Edited Exercise Duration (min) 03/22/2020 5 minutes 39 seconds min Final-Edited Estimated Workload (METS) 03/22/2020 6.8 METS Final-Edited Post Peak HR 03/22/2020 167 bpm Final-Edited Rate Pressure Product 03/22/2020 19,782 Final-Edited Percent of predicted max HR 03/22/2020 96 % Final-Edited Baseline HR 03/22/2020 81 bpm Final-Edited Resting O2 Sat 03/22/2020 100 % Final-Edited Baseline BP 03/22/2020 108/70 mmHg Final-Edited Post peak BP 03/22/2020 126/60 mmHg Final-Edited Echo EF Estimated 03/22/2020 65 % Final-Edited WBC 03/21/2020 5.1 4.1 - 11.0 10*3/uL Final RBC 03/21/2020 4.06 4.00 - 5.40 10*6/uL Final Hemoglobin 03/21/2020 9.8* 12.0 - 16.0 g/dL Final Hematocrit 03/21/2020 31.4* 36.0 - 47.0 % Final MCV 03/21/2020 77.4* 80.0 - 95.0 fL Final MCH 03/21/2020 24.0* 27.0 - 32.0 pg Final MCHC 03/21/2020 31.1* 32.0 - 36.0 g/dL Final RDW 03/21/2020 17.1* 10.5 - 14.5 % Final Platelets 03/21/2020 253 150 - 450 10*3/uL Final MPV 03/21/2020 9.4 7.1 - 10.7 fL Final Neutrophils % 03/21/2020 50.9 35.0 - 75.0 % Final Lymphocytes Relative 03/21/2020 31.8 16.0 - 52.0 % Final Monocytes Relative 03/21/2020 11.5* 0.0 - 8.0 % Final Eosinophils Relative 03/21/2020 5.2* 0.0 - 5.0 % Final Basophils Relative 03/21/2020 0.6 0.0 - 4.0 % Final Neutrophils Absolute 03/21/2020 2.6 1.8 - 7.7 10*3/uL Final Lymphocytes Absolute 03/21/2020 1.6 1.2 - 4.8 10*3/uL Final Monocytes Absolute 03/21/2020 0.6 0.0 - 0.8 10*3/uL Final Eosinophils Man 03/21/2020 0.3 0.0 - 0.5 10*3/uL Final Basophils Absolute 03/21/2020 0.0 0.0 - 0.2 10*3/uL Final Sodium 03/21/2020 140 136 - 145 mmol/L Final Potassium 03/21/2020 4.3 3.6 - 5.2 mmol/L Final Chloride 03/21/2020 106 100 - 108 mmol/L Final CO2 03/21/2020 26 22 - 31 mmol/L Final Anion Gap 03/21/2020 8 7 - 16 mmol/L Final Urea nitrogen 03/21/2020 14 7 - 24 mg/dL Final Creatinine 03/21/2020 1.02* 0.60 - 1.00 mg/dL Final BUN/Creatinine Ratio 03/21/2020 13.7 10.0 - 20.0 RATIO Final GLUCOSE 03/21/2020 75 70 - 99 mg/dL Final Calcium 03/21/2020 8.9 8.4 - 10.2 mg/dL Final Protein, Total 03/21/2020 7.4 6.4 - 8.2 g/dL Final Albumin 03/21/2020 3.9 3.5 - 4.6 g/dL Final Globulin 03/21/2020 3.5 2.7 - 4.3 g/dL Final Alb/Glob ratio 03/21/2020 1.1 RATIO Final Alkaline Phosphatase 03/21/2020 49 45 - 117 U/L Final Bilirubin, Total 03/21/2020 0.4 0.0 - 1.0 mg/dL Final AST 03/21/2020 19 11 - 39 U/L Final ALT 03/21/2020 29 12 - 78 U/L Final GFR MDRD Non Af Amer 03/21/2020 58* >59 ml/min/1.73m2 Final GFR MDRD Af Amer 03/21/2020 >60 >59 ml/min/1.73m2 Final Glom Filt Rate, Est 03/21/2020 SEE NOTES Final TEST NAME 03/21/2020 [id number] B TYPE NATRIURETIC PEPTIDE Final Results 03/21/2020 SEE SEPARATE REPORT Final Performed by: 03/21/2020 [facility] 03/21/2020 10.1 9.2 - 11.9 s Final INR 03/21/2020 0.97 FinalImaging/Testing:None recentEKG: Not neededAssessment & PlanFollow-upPatient Active Problem ListDiagnosis Cerebral aneurysm, nonruptured Arthropathy, unspecified, site unspecified Esophageal reflux Hiatal hernia Intractable migraine without aura and with status migrainosus Regional enteritis of unspecified site Stroke PFO (patent foramen ovale)Patient is getting a 30-day event monitor placed. She [place] a lot [place] that I still have not received the results on even aftermultiple attempts. Hopefully I will have that sent to me soon.Do not have an explanation for her dyspnea. An echocardiogram performed 5months ago showed good left ventricular systolic function. She did not havepulmonary hypertension and her d-dimer is normal and I am waiting for blood workfrom her last office visit. I am not repeating it because clinically she isunchanged. She is having her Humira discontinued for the time being and I willsee her back in a week with an echocardiogram to remeasure her pulmonary arterypressure. She has not had much swelling in her legs recently. She continueswith Sudafed and I have decreased the dose to 60 mg twice a day. This is forher idiopathic edema which seems to be workingHer weight is stabilized and she did not gain any weight since having last beenseen about 3 weeks ago..Signature: Lavelle Rios, MDDate: July 23, 2020Time: 4:12 PM Name Value Range Interpretation Code Description Data Jenn rce(s) Supporting Document(s) ID Date Data Source [id number] 07/23/2020 02:15:00 PM EDT [facility] Name Value Range Interpretation Code Description Data Jenn rce(s) Supporting Document(s) Follow Up [facility] PCZOIl1uIgVPRfIpOZJaDaxBDPhoTJcgLOUjZ4D1ODatFn0XIPttqqHrFYIdUo1+NCQhOW6tqy8qWANk gMy [file] +dBCK1f6rnYWlC7aklmGXAP+Durable Medical Equipment Repairer+yWOJ7Id9V4INr3fLu1vNuhSoTeNJJgUaf8O554yF8/qOpwLwYzwA [file] y8+M6U+Hw6lytJ4iRNssYk/4BallkPlUMv5LeVBXmyNXtp8BrGrYWxkU/XSV5/iOZT3uf86HQ9MO+inside technical sales representative [file] pOl1TPyhjw4IG9W+5KnApZpthwAxv8pA1tGtVMLQUzgf/voucJ/MARIA A/d4V9U3XMMJIa+ao8xx1+En/gJ mS9C2FhUCd7PP0QZFJOzJp0/yvAjluZfBGnNtyp90XPeemmOECvndkWVUlyhS9VVxeR3JqXz2WglgYKo s4JKBpAb+lrPPE4cdRT1F4xtSd4r91fAMYnhxkUaax tLRILbO8HMfRvxTpHuv2Ec1iOPRROzAma9rUCqrjHwgEd/yBOonh+cTm0PdpYT6jt9QEJ+VuZAFUAsN5 D3iBdQ+EUsakLp7gjDBcy9DPZ79OH6Gv7AhtTb89QfoW4XjJAvwKgiAWiiAdcI5PXRfSKLHq4Lutuf33 xUC5UNBUtoaf+5Y8sL6NiXTp/t5xE0Z4kA39t496/n bscC1irYBmlB0CIBAJDrKyNavmG6b0hIY+U9fXBY92FCixzQV0yHLB1B65PIpK04dgccUTEZua0BWctO cT8Besg0/u4wxT4i+hUW9js4lhnmTVreUbOGmh5vluo4M99j/1I55ylTchx2ZxGGuplEQyFP2983r6R1 mGtgr+X7tTkKoo7f7bN/iT6aIfd28kSGmf4hvVBsng 3uDhy95kqKyT7mpEx9Xb+VDxhDaCbi2o6W36ghlr7XwJcBbnldlrYG8TZ+BmqkYxlaoJXcA48OeJBmts yMRz6XmGNJjUDI+YjH6tBmq5T5uIL43bOuRt3EajNgp5nd+lYjxr/NlZ14XeFZ5nMMtflv0JJhvv/qft T6g46czFPFyWKRiJ/MMYKUbz+LjudBC4XZxzujWPDZ kmHYx/+GZkKwBuJ5U2umuuAH9oJasgO0SzB/KASHMIR/iGD+8S0mX+5jzZ1c0Hi1Sml7ePNTsSu+Jflgeq7uW nafHha08UnDmwwIDlSdy4EVz4Fjz7Oym44dQD6ajHxU0OC/MJrrLiIY4n43VsXME1I6LPC64TwLS1dgo rAXA5RvZzLIS/AIyDSpIzZOdIbazLjW/6tsuVPpxUp DAfKOsWapWm6P46Ly/2OsLx421xIBBP2ot9utStxF604DC0j9Q+VnGz9rAVqTspmXSlA2DCPwXgQ9PxZ d1RDTu9/C76WlHZ/xEsGitrzz4D00wr7xFQqdfSbnLXBGGrx7mdjM+LhdkmT5kn6h7xkXxCp6rIVruBm LK5QLOxfd4AdVuZhTQQOpKtbShjYlvruvsgJQObdq4 4zrIt8sunzZx/xsRbajbTGz61xxrF+Qnt+A5oDGk+nmc+aNST88r349h661FbhgPBGOTtifBSW0lcNad +13M/Jrbxjk3ZW/V44Fcy5H2hxrQWWfrQFITezvCZMPbJvzNU/cPaPL8QLPKJxvr5/75qAq75A9ez2ms Yi0phEA+Uq6yzkRdHDcthJTXCIdd0QDdyEhNsbEV54 HrVUMqjxJ2YPRbptUn6YuZ0XhjROP/f62Dk0I9L0g/7oiPBu/jogFj/s732yoH73BTV6JNxEGMFbsGp0 JlQRZCFsuE3Uw+qlZ5seJ8dFItcpMcmP6fFVhpc/ZL4DI48lKGlyHIutPWVWM5olpqGWtyxncBc07kOQ b1L+vPg1HilQ41MR+q3wuwkdFQy5MS8xlhnwmlhuN5 yF09C2O9EDABlDhALr2U2i+pv9Er4tAjMn1lJFDzctsWcQh7KvnsnGiXedubK3oDaHmat7TOekDoRIYo rGlTiFJfakhZcrtTCHJ5yyvo/TLdpEfZD3qmEcyiRuVci/In8ycy+UeCRZL3kEN+xtGhGjz9AbOj8mov FkJZ+vmeSdMueNCSTGclQPqHICyANPgUETLq5lTUpM naVtajHQQxXZLSGG7uOUAeDFhzPyrxi5tuyJyJ5OUJsvs20NELy0zDrnZzForTjaV8KUZkm6qnl7I/BABATUNDE [file] светлана/qd9V+fGZoa75+9BAT+7E35hxDPS8SXTAo8q+AIziPDvIBi2oR8EORUh4CMNQmcYQADOj3rlqNM54 [file] wDvgVzx1Veho/IdOlv0f0qrHvO/LAcUrYbtFTioMtIbNrzDV5xOhrWMKLZfcNO9RQtpMLv/PP5je+truck dispatcher [file] Filtration Plant Mechanic+GJSYIFFtgX5Q+ZiBzQ8W3a311Tj48EjRLC71RY [file] Bleach Maker+0ROrh1maYpvjYN/CapBp4rlBh8NTdiz5xetz2SKUt2+tecGQhszSFB1T7UcCqs9nbOF8/tJ/N0XrF [file] 5hmB34eN6ljRNBp6Di10NTd6t/b690700A4TvgteHG HiwTxDpxcGVxGFYoJ6wN7Y+ckiBCkLi5yYxaj2Kk5meKDoqUn8OShgpdlmB0b46Qa/RqPquGhQ+CF7UC Tm1xtbvpcs4/tnPjzU1o4Qua98fryZ14iW4i6mjvcsH8NNXGuSnVdhIG9OcVyITI/nWxkYHg/L5cgO3X 3IPl/PsstAHxc1wFaPMThpLr2TO+shzYjQSDik8YjA fs1qiJZhMlLHfZtBea4+w+pgYJRTA6kEtCaKBP8l/wnjQ3fy9JJJ/Dp6IYtaaY6jRyRUlCGuLwyb8Ra6 TmHJP7TB9zeqRC5QzdSb7YX2iLll+VHDcpUKXGUN/P5opkDQjyY29PRQ+W/+w8Cwl4v/3dSFiXlZq+Case Management Coordinator [file] rzk+Maria Teresa/RZqwkWd2yAnP8CNyz2PTrltX44Pht5EbQC [file] SIiQ5xjlhoR9Ob4S+ri/hZsRGduO1E95kwmRWQP5EqTj0emp+QPsOu0A2iph1vv33a0HpY5i5n8d+LUCÍA 5TqNmapdK+c50R7A5YroCEPQkKpMuo5iL8Std0TZoQ CUq2qI6cukY1NFD01zyhvtnXbo502aXgL0nehEKF4LCfRwj4fEsKFbVLY3LMDkLFlPy8y9tToeKPQ5tW 8nD6nexEC/o5IcG9LmYVoEJ0FBEo6KTcJK+Jdb3Flh8gxKV47XzTPzyMLmyLT56kCbyf9ixyHtiv3klv mssKjPHmE14p5WzffCvO8dlaeuv3P6wfh8vv5AeuZ5 Pyks0qWdjZ5yzkhatJIihdGJOnGnO5GNA40p712rnz00kUVuKvmsud27I8yn+FoUYKensbTnPDm/WOiJ iVMRPUln0NTk+O9nM8Tf1vQ4uRssYTWjjhwxZYgZYifXcrMoJ6sDGH+jajLGkxWUmPdTqGqq6KUWSpF+ P49tmefMUVXb3G9/RuZ3209QEd0DOWVgUe7Vani4TR +zRSw/iIximRrn3Q1ejfcvYEnoTCE+V69SWxDwCH5Sv/cgv1Tx3F7KAJbPgDY4M6SrhwrxkJh4uZsfpr 2FAD+0jmBqFtALduKOWe8J+E2fXkeEewXKwope7GvTaV32/lhpuBIJ0R5UR+dZCukuHiRQ8/eajWA7TC a3OiTBQtsHTaqhC9KFkgL6Xv1FE/64wJ5jhZrXyjub yYO3kr4MPAqpr+BC/rtUSedtl4CTkm8r/CXEmAcbRCUfpu6Lf71/4dsuHLETNN61n8Xck70Zqdr5Ihx+ Yx7w12+MW9oBFC6ozKYPi0e9ma87L5rPmEeiI8j0IbREjry6iZfddx88UPy+J4tpa17ild3cSmYWwrnt 41jTL0aYjkzB88KXDny+mrsjWeMVC1UKfVaSwZ4ue/ Erasmo/2RUX9OkHMD2SG/NZhogVRB/P25WNih6Poc5U4Hx6uIQGDQ8k41DdFJU0d9f4Q2njtRPtLVuUUjpd [file] Oks+nDul07IxJjrmuAUfzx4QMtyVmE/GUgmyQR7inOiyHzSn5FM+counselor dormitory/ZZmuar1hx+ZXiPMbPJPkWUIN4 [file] 8d3ZfcatZ6isX3893eXPcFP16xcfs8oZ0fbz9L46o3 sFkFE5s6sapWJsN70jLZFdgmE8mfZ6LwvkD+SkgEtkiCEKGmVC1xuu/G2V+Sg1XMfdHmxeyHxcS99Ehs zJOUKA+a630iWeEscIb1a0KiaKbQyDYgR6/WuR+zlzZ9DmAO34sC7505/zJiLvu53kcX2aSllF9q50y6 GmmkZ7nT/gf/j+bOTc/3ujl8TihqVBTJFp3vI7oO5c 09xdsdkgQyflfb5/dhRm90K+0hz17oJvq5sQEgtU6i6Pf2wR+26k1zXUO3Qgz7QV+P7o0+IfT/zWxhpI /EUACyMQHq0ipq0rlNsbfsKez+QoSKdyHKmqMqRV7XXpPZnKei+6xEky4iDcWYztal/U/jw1+1a9/Crime Scene Examiner [file] TOXmDvNKhNS1floxTMWsgq9ckmR2ozQZljgDsN/brush washer [file] 3RxkwMBOBQVZMBFvPgLnX0Rdg+PEI9QuyC5uL7qxaCYt/QZH8B1NNir1Z+Performance Test Architect+SKf/RUUfSLqEaTkgp+ [file] E6hJ80DqA6iCx0w5oL+NETWORK SECURITY ANALYST/d1X9R4c3KtbI3cxAO1S [file] kZI4wrMF+7eMXPY3wiqO+82oRGG0aabp+wjOknR/CDCeAcoO3hEhUSlEsw/ricardo+vsOfvIlfOXBxmwm4Wi iq4gT4HQQl29Dy13Szn6V9S4OlxomHb00GV5fKpoj/ m74Bzm8xf10t2wjNFGcyEbAQ4jnEExUHkwdzfVgLhNvqf2qyOOxL3rhzqzgWxx30DeQTDaTNM+R9YiXY r0NODYKEV/UMnbLA94CN0O94uLg5oHMQnzafjwsZ4YrBWxnbUWK2n/QS/hZUpV65SneKzv68VphFNmkC +CjlAHSuI90AHOW/IhDBJmaXSA6re7BvTvjhiSlX7t GOQPifxqONVRAvnt0RajaBbXq5YxmG7ioRn5PCw82M+8dQg285aR0HzMrIl9GL7GvsGRyWkbYBIZpnin KFDX62DXlshpevjW5e5nBZCRTGSqgju8Fq2jtjB7ocQWH2396XbE2nbCInBxhW0ZHTq0aVVgMyVFbNs2 gtzF8MkKMz9Mu67kfTFoQt3dY6F5wOrVlwPj71/W+K VjlVVDg3nXkaYUSHDsulOKq+zeXpRXLt75mBeNOYdb878iYDQv2Tt/WUjBL61kFawIMAr0OWV7zcbohn iaxQDG1McbUJ3g1hzteFY9gM8pAoANSfCmNCDGzfJos6UCoz9rFUbNt9O4nqnv6E6orkdn2Luw9wnX4v gqx9X/GZAMQNShMHRJVLTWdCKRtsYP3niYzoS2JX5r vPe41wjxmmBaeyCdjXpHNDBtFB/aavXgR96OZPhDg4wu+XJLQe2bwPeDsB6rLJHNAweb47lIbTtpsyPu OvvRLl9i3Er7r/4DxV4aLk0Hi+qZHdEghTvjZWMtzpPbi8sfstoY9vRtVBc9rZdfNOQ6vSo0PwcZlyXp Q7zEKm9iWPp6ED/Maria E/Ng88PrsnTKwyP1JibEq7fZG [file] Saft9Dn4Ry+DVPxJYo3VX4GoJ+9cGSrDvRd8iyBKB6CnW9+JSzyXu1FMZY/shell molding roller blast operator+zdLin0VDd3ePs9OnC [file] O6edjG0/vMBPzzJRvz39l5X46+ZA/Jose Antonio/0u2wXX1ug+gDF3Yg1Izq4xdN5xxPmCyE1NJbUEaJVWE/v2B [file] nutlVutPFsVI4DVrTbDX0wqd7IUhY9DXW0oJUfDx9UTUA2Wmf6Mb7EVCTRY3X= Procedure Social History Code Duration Value Status Description Data Source(s ) Smoking 08/07/2021 12:00:00 AM EDT Non Smoker completed Non Smoke r [facility] ([facility], ) Smoking 08/01/2021 12:00:00 AM EDT Never Smoker completed [facility] moker [facility] Smoking 08/01/2021 12:00:00 AM EDT Never Smoker completed Never S moker [facility]CW1 ([facility]) Smoking 08/01/2021 12:00:00 AM EDT Never Smoker completed Never S moker eCW1 ([facility]) Smoking 08/01/2021 12:00:00 AM EDT Never Smoker completed Never S moker eCW1 ([facility]) Smoking 08/01/2021 12:00:00 AM EDT Never Smoker completed Never S moker eCW1 ([facility]) Smoking 08/01/2021 12:00:00 AM EDT Never Smoker completed Never S moker eCW1 ([facility]) Smoking 08/01/2021 12:00:00 AM EDT Never Smoker completed Never S moker eCW1 ([facility]) Smoking 07/10/2021 12:00:00 AM EDT Never Smoker completed Never S moker eCW1 ([facility]) Smoking 07/10/2021 12:00:00 AM EDT Never Smoker completed Never S moker eCW1 ([facility]) Smoking 07/10/2021 12:00:00 AM EDT Never Smoker completed Never S moker eCW1 ([facility]) Smoking 07/10/2021 12:00:00 AM EDT Never Smoker completed Never S moker eCW1 ([facility]) Smoking 06/16/2021 12:00:00 AM EDT Never Smoker completed Never S moker eCW1 ([facility]) Smoking 06/16/2021 12:00:00 AM EDT Never Smoker completed Never S moker eCW1 ([facility]) Smoking 06/16/2021 12:00:00 AM EDT Never Smoker completed Never S moker eCW1 ([facility]) Smoking 06/16/2021 12:00:00 AM EDT Never Smoker completed Never S moker eCW1 ([facility]) Smoking 06/16/2021 12:00:00 AM EDT Never Smoker completed Never S moker eCW1 ([facility]) Smoking 06/16/2021 12:00:00 AM EDT Never Smoker completed Never S moker eCW1 ([facility]) Smoking 06/16/2021 12:00:00 AM EDT Never Smoker completed Never S moker eCW1 ([facility]) Smoking 06/16/2021 12:00:00 AM EDT Never Smoker completed Never S moker eCW1 ([facility]) Smoking 06/16/2021 12:00:00 AM EDT Never Smoker completed Never S moker eCW1 ([facility]) Smoking 06/10/2021 12:00:00 AM EDT Patient has never smoked co mpleted Patient has never smoked [facility] ([facility]) Smoking 05/13/2021 12:00:00 AM EDT Never Smoker completed Never S moker eCW1 ([facility]) Smoking 05/13/2021 12:00:00 AM EDT Never Smoker completed Never S moker eCW1 ([facility]) Smoking 05/13/2021 12:00:00 AM EDT Never Smoker completed Never S moker eCW1 ([facility]) Smoking 05/13/2021 12:00:00 AM EDT Never Smoker completed Never S moker eCW1 ([facility]) Smoking 05/13/2021 12:00:00 AM EDT Never Smoker completed Never S moker eCW1 ([facility]) Smoking 05/13/2021 12:00:00 AM EDT Never Smoker completed Never S moker eCW1 ([facility]) Smoking 05/13/2021 12:00:00 AM EDT Never Smoker completed Never S moker eCW1 ([facility]) Smoking 05/13/2021 12:00:00 AM EDT Never Smoker completed Never S moker eCW1 ([facility]) Smoking 05/13/2021 12:00:00 AM EDT Never Smoker completed Never S moker eCW1 ([facility]) Smoking 05/13/2021 12:00:00 AM EDT Never Smoker completed Never S moker eCW1 ([facility]) Smoking 05/13/2021 12:00:00 AM EDT Never Smoker completed Never S moker eCW1 ([facility]) Smoking 05/13/2021 12:00:00 AM EDT Never Smoker completed Never S moker eCW1 ([facility]) Smoking 05/13/2021 12:00:00 AM EDT Never Smoker completed Never S moker eCW1 ([facility]) Smoking 05/13/2021 12:00:00 AM EDT Never Smoker completed Never S moker eCW1 ([facility]) Smoking 05/13/2021 12:00:00 AM EDT Never Smoker completed Never S moker eCW1 ([facility]) Smoking 05/13/2021 12:00:00 AM EDT Never Smoker completed Never S moker eCW1 ([facility]) Smoking 05/13/2021 12:00:00 AM EDT Never Smoker completed Never S moker eCW1 ([facility]) Smoking 05/13/2021 12:00:00 AM EDT Never Smoker completed Never S moker eCW1 ([facility]) Smoking 05/13/2021 12:00:00 AM EDT Never Smoker completed Never S moker eCW1 ([facility]) Smoking 05/13/2021 12:00:00 AM EDT Never Smoker completed Never S moker eCW1 ([facility]) Smoking 05/13/2021 12:00:00 AM EDT Never Smoker completed Never S moker eCW1 ([facility]) Smoking 05/13/2021 12:00:00 AM EDT Never Smoker completed Never S moker eCW1 ([facility]) Smoking 03/20/2021 12:00:00 AM EDT Never Smoker completed Never S moker eCW1 ([facility]) Smoking 03/20/2021 12:00:00 AM EDT Never Smoker completed Never S moker eCW1 ([facility]) Smoking 03/20/2021 12:00:00 AM EDT Never Smoker completed Never S moker eCW1 ([facility]) Smoking 03/20/2021 12:00:00 AM EDT Never Smoker completed Never S moker eCW1 ([facility]) Smoking 03/20/2021 12:00:00 AM EDT Never Smoker completed Never S moker eCW1 ([facility]) Smoking 03/20/2021 12:00:00 AM EDT Never Smoker completed Never S moker eCW1 ([facility]) Smoking 03/20/2021 12:00:00 AM EDT Never Smoker completed Never S moker eCW1 ([facility]) Smoking 03/20/2021 12:00:00 AM EDT Never Smoker completed Never S moker eCW1 ([facility]) Smoking 03/20/2021 12:00:00 AM EDT Never Smoker completed Never S moker eCW1 ([facility]) Smoking 02/11/2021 12:00:00 AM EDT Never Smoker completed Never S moker eCW1 ([facility]) Smoking 02/11/2021 12:00:00 AM EDT Never Smoker completed Never S moker eCW1 ([facility]) Smoking 02/11/2021 12:00:00 AM EDT Never Smoker completed Never S moker eCW1 ([facility]) Smoking 02/11/2021 12:00:00 AM EDT Never Smoker completed Never S moker eCW1 ([facility]) Alcohol intake 12/30/2020 12:00:00 AM EST Yes completed [facility] Smoking 12/30/2020 12:00:00 AM EST Never smoker completed Never s moker [facility] Smoking 12/20/2020 12:00:00 AM EST Never Smoker completed Never S moker eCW1 ([facility]) Smoking 12/20/2020 12:00:00 AM EST Never Smoker completed Never S moker eCW1 ([facility]) Smoking 12/20/2020 12:00:00 AM EST Never Smoker completed Never S moker eCW1 ([facility]) Smoking 12/20/2020 12:00:00 AM EST Never Smoker completed Never S moker eCW1 ([facility]) Smoking 12/20/2020 12:00:00 AM EST Never Smoker completed Never S moker eCW1 ([facility]) Smoking 12/20/2020 12:00:00 AM EST Never Smoker completed Never S moker eCW1 ([facility]) Smoking 12/20/2020 12:00:00 AM EST Never Smoker completed Never S moker eCW1 ([facility]) Smoking 12/20/2020 12:00:00 AM EST Never Smoker completed Never S moker eCW1 ([facility]) Smoking 12/20/2020 12:00:00 AM EST Never Smoker completed Never S moker eCW1 ([facility]) Smoking 12/20/2020 12:00:00 AM EST Never Smoker completed Never S moker eCW1 ([facility]) Smoking 12/20/2020 12:00:00 AM EST Never Smoker completed Never S moker eCW1 ([facility]) Smoking 12/20/2020 12:00:00 AM EST Never Smoker completed Never S moker eCW1 ([facility]) Smoking 12/20/2020 12:00:00 AM EST Never Smoker completed Never S moker eCW1 ([facility]) Smoking 12/20/2020 12:00:00 AM EST Never Smoker completed Never S moker eCW1 ([facility]) Smoking 12/20/2020 12:00:00 AM EST Never Smoker completed Never S moker eCW1 ([facility]) Smoking 12/20/2020 12:00:00 AM EST Never Smoker completed Never S moker eCW1 ([facility]) Smoking 12/20/2020 12:00:00 AM EST Never Smoker completed Never S moker eCW1 ([facility]) Smoking 12/20/2020 12:00:00 AM EST Never Smoker completed Never S moker eCW1 ([facility]) Smoking 12/20/2020 12:00:00 AM EST Never Smoker completed Never S moker eCW1 ([facility]) Smoking 12/13/2020 12:00:00 AM EST Never Smoker completed Never S moker eCW1 ([facility]) Smoking 12/13/2020 12:00:00 AM EST Never Smoker completed Never S moker eCW1 ([facility]) Smoking 12/13/2020 12:00:00 AM EST Never Smoker completed Never S moker eCW1 ([facility]) Smoking 10/18/2020 12:00:00 AM EST Never Smoker completed Never S moker eCW1 ([facility]) Smoking 10/18/2020 12:00:00 AM EST Never Smoker completed Never S moker eCW1 ([facility]) Smoking 10/18/2020 12:00:00 AM EST Never Smoker completed Never S moker eCW1 ([facility]) Smoking 10/18/2020 12:00:00 AM EST Never Smoker completed Never S moker eCW1 ([facility]) Smoking 10/18/2020 12:00:00 AM EST Never Smoker completed Never S moker eCW1 ([facility]) Smoking 10/18/2020 12:00:00 AM EST Never Smoker completed Never S moker eCW1 ([facility]) Smoking 10/18/2020 12:00:00 AM EST Never Smoker completed Never S moker eCW1 ([facility]) Smoking 10/18/2020 12:00:00 AM EST Never Smoker completed Never S moker eCW1 ([facility]) Smoking 09/25/2020 12:00:00 AM EST Never Smoker completed Never S moker eCW1 ([facility]) Smoking 09/25/2020 12:00:00 AM EST Never Smoker completed Never S moker [facility] ([facility]) Caffeine Use Details 07/30/2020 12:00:00 AM EDT completed [facility] ([facility]) Smoking 07/30/2020 12:00:00 AM EDT Unknown if ever smoked comp leted Unknown if ever smoked [employer] ([facility]) 07/25/2020 12:00:00 AM EDT Current non-smoker completed C urrent non-smoker [employer] ([facility]) Vital Signs ID Date Data Source UNK Name Value Range Interpretation Code Description Data Source(s) Body height 64 [in_i] 64 [in_i] [facility] ([facility]) 5'4" Body weight 177.00 [lb_av] 177.00 [lb_av] [facility] Body mass index (BMI) [Ratio] 30.4 kg/m2 30.4 k g/m2 [facility] ([facility]) [place] body weight 120 [lb_av] 120 [lb_av] [facility] ([facility]) Body weight 80.287 kg 80.287 kg [facility] ([facility]) Body surface area Derived from formula 1.86 m2 1.86 m2 [facility] ([facility]) Diastolic blood pressure 80 mm[Hg] 80 mm[Hg] [facility] ([facility]) Heart rate 84 /min 84 /min [facility] ([facility]) Oxygen saturation in Arterial blood by Pulse oximetry 99 % 99 % [facility] ([facility]) Body height 64 [in_i] 64 [in_i] [facility] ([facility]) 5'4" Body weight 173.00 [lb_av] 173.00 [lb_av] [facility] ([facility]) Body mass index (BMI) [Ratio] 29.7 kg/m2 29.7 k g/m2 [facility] ([facility]) [place] body weight 120 [lb_av] 120 [lb_av] [facility] ([facility]) Body weight 78.473 kg 78.473 kg [facility] ([facility]) Systolic blood pressure 122 mm[Hg] 122 mm[Hg] [facility] ([facility]) Body surface area Derived from formula 1.84 m2 1.84 m2 [facility] ([facility]) Body mass index (BMI) [Ratio] 29.7 kg/m2 29.7 k g/m2 [facility] ([facility]) [place] body weight 120 [lb_av] 120 [lb_av] [facility] ([facility]) Body weight 78.473 kg 78.473 kg [facility] ([facility]) Body surface area Derived from formula 1.84 m2 1.84 m2 [facility] ([facility]) Body height 64 [in_i] 64 [in_i] [facility] ([facility]) 5'4" Body weight 173.00 [lb_av] 173.00 [lb_av] [facility] ([facility]) Body weight 78.019 kg 78.019 kg [facility] ([facility]) Body mass index (BMI) [Ratio] 29.5 kg/m2 29.5 k g/m2 [facility] ([facility]) [place] body weight 120 [lb_av] 120 [lb_av] [facility] ([facility]) Body surface area Derived from formula 1.83 m2 1.83 m2 [facility] ([facility]) Body height 64 [in_i] 64 [in_i] [facility] ([facility], ) 5'4" Body weight 172.00 [lb_av] 172.00 [lb_av] [facility] T ([facility], ) Systolic blood pressure 117 mm[Hg] 117 mm[Hg] M EDENT ([facility], [facility]) Diastolic blood pressure 83 mm[Hg] 83 mm[Hg] [facility] ([facility], [facility]) Heart rate 80 /min 80 /min [facility] ([facility], [facility]) Respiratory rate 14 /min 14 /min [facility] ( [facility], [facility]) Oxygen saturation in Arterial blood by Pulse oximetry 97 % 97 % [facility], [facility]) Body temperature 96.0 [degF] 96.0 [degF] [facility] ([facility], [facility]) Body weight 170.00 [lb_av] 170.00 [lb_av] [facility] T ([facility], [facility]) Body height 63 [in_i] 63 [in_i] [facility] ([facility], [facility]) 5'3" Body mass index (BMI) [Ratio] 30.1 kg/m2 30.1 k g/m2 [facility] ([facility], [facility]) Body weight 171 [lb_av] 171 [lb_av] eCW1 ([facility]) Body weight 77.57 kg 77.57 kg eCW1 ([facility]) Body height 64.5 [in_i] 64.5 [in_i] eCW1 ([facility]) Body mass index (BMI) [Ratio] 28.90 kg/m2 28.90 kg/m2 [facility] Heart rate /min eCW1 ([facility]) Respiratory rate 20 /min 20 /min eCW1 ([facility]) Body temperature 98.0 [degF] 98.0 [degF] [facility] Systolic blood pressure 120 mm[Hg] 120 mm[Hg] e CW1 ([facility]) Diastolic blood pressure 74 mm[Hg] 74 mm[Hg] eCW1 [facility]) Heart rate 114 /min 114 /min [facility] ([facility]) Body mass index (BMI) [Ratio] 29.4 kg/m2 29.4 k g/m2 [facility] ([facility]) [place] body weight 120 [lb_av] 120 [lb_av] [facility] ([facility]) Body weight 77.679 kg 77.679 kg [facility] ([facility]) Systolic blood pressure 124 mm[Hg] 124 mm[Hg] M [facility] ([facility]) Diastolic blood pressure 72 mm[Hg] 72 mm[Hg] [facility] ([facility]) Oxygen saturation in Arterial blood by Pulse oximetry 97 % 97 % [facility] ([facility]) Body height 64 [in_i] 64 [in_i] [facility] [facility]4" Body weight 171.25 [lb_av] 171.25 [lb_av] [facility] ([facility]) Body surface area Derived from formula 1.83 m2 1.83 m2 [facility] ([facility]) Body mass index (BMI) [Ratio] 28.3 kg/m2 28.3 k g/m2 [facility] ([facility]) Systolic blood pressure 111 mm[Hg] 111 mm[Hg] [facility] Diastolic blood pressure 69 mm[Hg] 69 mm[Hg] [facility] ([facility], [facility]) Heart rate 94 /min 94 /min [facility] ([facility], [facility]) Respiratory rate 16 /min 16 /min [facility] ( [facility], [facility]) Oxygen saturation in Arterial blood by Pulse oximetry 99 % 99 % [facility] ([facility], [facility]) Body temperature 98.6 [degF] 98.6 [degF] [facility], [facility]) Body weight 160.00 [lb_av] 160.00 [lb_av] [facility] ([facility], [facility]) Body height 63 [in_i] 63 [in_i] [facility] ([facility]) 5'3" Body mass index (BMI) [Ratio] 27.5 kg/m2 27.5 k g/m2 [facility] ([facility]) [place] body weight 120 [lb_av] 120 [lb_av] [facility] ([facility]) Systolic blood pressure 114 mm[Hg] 114 mm[Hg] M [facility]ENT ([facility]) Diastolic blood pressure 60 mm[Hg] 60 mm[Hg] [facility] ([facility]) Body height 64 [in_i] 64 [in_i] [facility] ([facility]) 5'4" Body weight 160.00 [lb_av] 160.00 [lb_av] [facility] ([facility]) Body weight 72.576 kg 72.576 [facility] Body surface area Derived from formula 1.78 m2 1.78 m2 [facility] ([facility]) Body weight 159 [lb_av] 159 [lb_av] eCW1 ([facility]) Body height 64.5 [in_i] 64.5 [in_i] eCW1 ([facility]) Body mass index (BMI) [Ratio] 26.87 kg/m2 26.87 kg/m2 eCW1 ([facility]) Heart rate 86 /min 86 /min eCW1 ([facility]) Respiratory rate 20 /min 20 /min eCW1 ([facility]) Body temperature 98.0 [degF] 98.0 [degF] eCW1 ( [facility]) Systolic blood pressure 116 mm[Hg] 116 mm[Hg] e CW1 ([facility]) Diastolic blood pressure 78 mm[Hg] 78 mm[Hg] eCW1 ([facility]) Body weight 145 [lb_av] 145 [lb_av] eCW1 ([facility]) Body height 64.5 [in_i] 64.5 [in_i] eCW1 ([facility]) Body mass index (BMI) [Ratio] 24.50 kg/m2 24.50 kg/m2 eCW1 ([facility]) Heart rate 106 /min 106 /min eCW1 ([facility]) Respiratory rate 20 /min 20 /min eCW1 ([facility]) Body temperature 97.7 [degF] 97.7 [degF] eCW1 ( [facility]) Systolic blood pressure 112 mm[Hg] 112 mm[Hg] e CW1 ([facility]) Diastolic blood pressure 78 mm[Hg] 78 mm[Hg] eCW1 ([facility]) Body height 65 [in_i] 65 [in_i] [facility] ([facility]) 5'5" Body weight 156.12 [lb_av] 156.12 [lb_av] [facility] T ([facility]) Body temperature 96.3 [degF] 96.3 [degF] [facility] ([facility]) Body mass index (BMI) [Ratio] 26.0 kg/m2 26.0 k g/m2 [facility] ([facility] Body weight 65.772 kg 65.772 kg [facility] Body mass index (BMI) [Ratio] 24.89 kg/m2 24.89 kg/m2 [facility] Systolic blood pressure 114 mm[Hg] 114 mm[Hg] M EDENT ([facility], [facility]) Diastolic blood pressure 77 mm[Hg] 77 mm[Hg] [facility] ([facility], [facility]) Heart rate 78 /min 78 /min [facility] ([facility], [facility]) Respiratory rate 13 /min 13 /min [facility] ( [facility], [facility]) Oxygen saturation in Arterial blood by Pulse oximetry 98 % 98 % [facility] ([facility], [facility]) Body temperature 97.2 [degF] 97.2 [degF] [facility] ([facility], [facility]) Body weight 145.00 [lb_av] 145.00 [lb_av] [facility] T ([facility], [facility]) Body height 63 [in_i] 63 [in_i] [facility] ([facility], [facility]) 5'3" Body mass index (BMI) [Ratio] 25.7 kg/m2 25.7 k g/m2 [facility] ([facility], [facility]) Body weight 150 [lb_av] 150 [lb_av] eCW1 ([facility]) Body weight 68.04 kg 68.04 kg eCW1 ([facility]) Systolic blood pressure 105 mm[Hg] 105 mm[Hg] e CW1 ([facility]) Diastolic blood pressure 75 mm[Hg] 75 mm[Hg] eCW1 ([facility]) Body height 64.5 [in_i] 64.5 [in_i] eCW1 ([facility]) Body mass index (BMI) [Ratio] 25.35 kg/m2 25.35 kg/m2 eCW1 ([facility]) Body weight 153 [lb_av] 153 [lb_av] eCW1 ([facility]) Body height 64.5 [in_i] 64.5 [in_i] eCW1 ([facility]) Body mass index (BMI) [Ratio] 25.85 kg/m2 25.85 kg/m2 eCW1 ([facility]) Heart rate 82 /min 82 /min eCW1 ([facility]) Respiratory rate 20 /min 20 /min eCW1 ([facility]) Body temperature 97.8 [degF] 97.8 [degF] eCW1 ( [facility]) Systolic blood pressure 120 mm[Hg] 120 mm[Hg] e CW1 ([facility]) Diastolic blood pressure 70 mm[Hg] 70 mm[Hg] eCW1 ([facility]) Systolic blood pressure 98 mm[Hg] 98 mm[Hg] M EDENT ([facility], [facility]) Diastolic blood pressure 62 mm[Hg] 62 mm[Hg] [facility] ([facility], [facility]) Heart rate 112 /min 112 /min [facility] ([facility], [facility]) Respiratory rate 18 /min 18 /min [facility] ( [facility], [facility]) Oxygen saturation in Arterial blood by Pulse oximetry 100 % 100 % [facility] ([facility], [facility]) Body temperature 97.5 [degF] 97.5 [degF] [facility] ([facility], [facility]) Body weight 145.00 [lb_av] 145.00 [lb_av] [facility] T ([facility], [facility]) Systolic blood pressure 116 mm[Hg] 116 mm[Hg] M EDENT ([facility], [facility]) Diastolic blood pressure 87 mm[Hg] 87 mm[Hg] [facility] ([facility], [facility]) Heart rate 90 /min 90 /min [facility] ([facility], [facility]) Respiratory rate 14 /min 14 /min [facility] ( [facility], [facility]) Oxygen saturation in Arterial blood by Pulse oximetry 97 % 97 % [facility] ([facility], [facility]) Body temperature 98.3 [degF] 98.3 [degF] [facility] ([facility], [facility]) Body weight 150.00 [lb_av] 150.00 [lb_av] [facility] T ([facility], [facility]) Body height 63 [in_i] 63 [in_i] [facility] ([facility], [facility]) 5'3" Body mass index (BMI) [Ratio] 26.6 kg/m2 26.6 k g/m2 [facility] ([facility], [facility]) Body weight 157 [lb_av] 157 [lb_av] eCW1 ([facility]) Body height 64.5 [in_i] 64.5 [in_i] eCW1 ([facility]) Body mass index (BMI) [Ratio] 26.53 kg/m2 26.53 kg/m2 eCW1 ([facility]) Heart rate 80 /min 80 /min eCW1 ([facility]) Respiratory rate 18 /min 18 /min eCW1 ([facility]) Body temperature 97.3 [degF] 97.3 [degF] eCW1 ( [facility]) Systolic blood pressure 110 mm[Hg] 110 mm[Hg] e CW1 ([facility]) Diastolic blood pressure 70 mm[Hg] 70 mm[Hg] eCW1 ([facility]) Body weight 164.2 [lb_av] 164.2 [lb_av] eCW1 ([facility]) Body height 64.5 [in_i] 64.5 [in_i] eCW1 ([facility]) Body mass index (BMI) [Ratio] 27.75 kg/m2 27.75 kg/m2 eCW1 ([facility]) Heart rate 104 /min 104 /min eCW1 ([facility]) Respiratory rate 18 /min 18 /min eCW1 ([facility]) Body temperature 97.6 [degF] 97.6 [degF] eCW1 ( [facility]) Systolic blood pressure 100 mm[Hg] 100 mm[Hg] e CW1 ([facility]) Diastolic blood pressure 69 mm[Hg] 69 mm[Hg] eCW1 ([facility]) Body height 141.60 cm 141.60 cm [facility] ([facility]) Body weight 77.111 kg 77.111 kg [facility] ([facility]) Systolic blood pressure 110 mm[Hg] 110 mm[Hg] N [facility] ([facility]) Diastolic blood pressure 70 mm[Hg] 70 mm[Hg] [facility] ([facility]) Body mass index (BMI) [Ratio] 38.46 kg/m2 Overweight 38.46 kg/m2 [facility] ([facility]) Patient Treatment Plan of Care Planned Activity Planned Date Details Description Data Source (s) Alprazolam 0.25 MG Oral Tablet 09/05/2021 12:00:00 AM EDT eCW1 ([facility]) Magnesium Oxide 400 MG Oral Tablet 08/01/2021 12:00:00 AM EDT eCW1 ([facility]) Magnesium Oxide 400 MG Oral Tablet 08/01/2021 12:00:00 AM EDT eCW1 ([facility]) Magnesium Oxide 400 MG Oral Tablet 08/01/2021 12:00:00 AM EDT eCW1 ([facility]) Magnesium Oxide 400 MG Oral Tablet 08/01/2021 12:00:00 AM EDT eCW1 ([facility]) Magnesium Oxide 400 MG Oral Tablet 08/01/2021 12:00:00 AM EDT eCW1 ([facility]) Magnesium Oxide 400 MG Oral Tablet 08/01/2021 12:00:00 AM EDT eCW1 ([facility]) Magnesium Oxide 400 MG Oral Tablet 08/01/2021 12:00:00 AM EDT eCW1 ([facility]) Acetaminophen 325 MG / Hydrocodone Bitartrate 7.5 MG O ral Tablet 07/31/2021 12:00:00 AM EDT eCW1 ([facility]) Alprazolam 0.25 MG Oral Tablet 07/31/2021 12:00:00 AM EDT eCW1 ([facility]) Acetaminophen 325 MG / Hydrocodone Bitartrate 7.5 MG O ral Tablet 07/31/2021 12:00:00 AM EDT eCW1 ([facility]) Alprazolam 0.25 MG Oral Tablet 07/31/2021 12:00:00 AM EDT eCW1 ([facility]) Acetaminophen 325 MG / Hydrocodone Bitartrate 7.5 MG O ral Tablet 07/31/2021 12:00:00 AM EDT eCW1 ([facility]) Alprazolam 0.25 MG Oral Tablet 07/31/2021 12:00:00 AM EDT eCW1 ([facility]) Acetaminophen 325 MG / Hydrocodone Bitartrate 7.5 MG O ral Tablet 07/31/2021 12:00:00 AM EDT eCW1 ([facility]) Alprazolam 0.25 MG Oral Tablet 07/31/2021 12:00:00 AM EDT eCW1 ([facility]) Acetaminophen 325 MG / Hydrocodone Bitartrate 7.5 MG O ral Tablet 07/31/2021 12:00:00 AM EDT eCW1 ([facility]) Alprazolam 0.25 MG Oral Tablet 07/31/2021 12:00:00 AM EDT eCW1 ([facility]) Acetaminophen 325 MG / Hydrocodone Bitartrate 7.5 MG O ral Tablet 07/31/2021 12:00:00 AM EDT eCW1 ([facility]) Alprazolam 0.25 MG Oral Tablet 07/31/2021 12:00:00 AM EDT eCW1 ([facility]) Acetaminophen 325 MG / Hydrocodone Bitartrate 7.5 MG O ral Tablet 07/31/2021 12:00:00 AM EDT eCW1 ([facility]) Acetaminophen 325 MG / Hydrocodone Bitartrate 7.5 MG O ral Tablet 07/01/2021 12:00:00 AM EDT eCW1 ([facility]) Acetaminophen 325 MG / Hydrocodone Bitartrate 7.5 MG O ral Tablet 07/01/2021 12:00:00 AM EDT eCW1 ([facility]) Acetaminophen 325 MG / Hydrocodone Bitartrate 7.5 MG O ral Tablet 07/01/2021 12:00:00 AM EDT eCW1 ([facility]) Acetaminophen 325 MG / Hydrocodone Bitartrate 7.5 MG O ral Tablet 07/01/2021 12:00:00 AM EDT eCW1 ([facility]) Acetaminophen 325 MG / Hydrocodone Bitartrate 7.5 MG O ral Tablet 07/01/2021 12:00:00 AM EDT eCW1 ([facility]) Acetaminophen 325 MG / Hydrocodone Bitartrate 7.5 MG O ral Tablet 07/01/2021 12:00:00 AM EDT eCW1 ([facility]) Acetaminophen 325 MG / Hydrocodone Bitartrate 7.5 MG O ral Tablet 07/01/2021 12:00:00 AM EDT eCW1 ([facility]) Acetaminophen 325 MG / Hydrocodone Bitartrate 7.5 MG O ral Tablet 07/01/2021 12:00:00 AM EDT eCW1 ([facility]) Alprazolam 0.25 MG Oral Tablet 06/30/2021 12:00:00 AM EDT eCW1 ([facility]) Alprazolam 0.25 MG Oral Tablet 06/30/2021 12:00:00 AM EDT eCW1 ([facility]) Alprazolam 0.25 MG Oral Tablet 06/30/2021 12:00:00 AM EDT eCW1 ([facility]) Alprazolam 0.25 MG Oral Tablet 06/30/2021 12:00:00 AM EDT eCW1 ([facility]) Alprazolam 0.25 MG Oral Tablet 06/30/2021 12:00:00 AM EDT eCW1 ([facility]) Alprazolam 0.25 MG Oral Tablet 06/30/2021 12:00:00 AM EDT eCW1 ([facility]) Acetaminophen 325 MG / Hydrocodone Bitartrate 7.5 MG O ral Tablet 06/25/2021 12:00:00 AM EDT eCW1 ([facility]) Acetaminophen 325 MG / Hydrocodone Bitartrate 7.5 MG O ral Tablet 06/25/2021 12:00:00 AM EDT eCW1 ([facility]) Acetaminophen 325 MG / Hydrocodone Bitartrate 7.5 MG O ral Tablet 06/09/2021 12:00:00 AM EDT eCW1 ([facility]) Acetaminophen 325 MG / Hydrocodone Bitartrate 7.5 MG O ral Tablet 06/09/2021 12:00:00 AM EDT eCW1 ([facility]) Acetaminophen 325 MG / Hydrocodone Bitartrate 7.5 MG O ral Tablet 06/09/2021 12:00:00 AM EDT eCW1 ([facility]) Acetaminophen 325 MG / Hydrocodone Bitartrate 7.5 MG O ral Tablet 06/09/2021 12:00:00 AM EDT eCW1 ([facility]) Acetaminophen 325 MG / Hydrocodone Bitartrate 7.5 MG O ral Tablet 06/09/2021 12:00:00 AM EDT eCW1 ([facility]) hydrocortisone acetate 25 MG Rectal Suppository 05/22/2021 12:00:00 AM EDT eCW1 ([facility]) hydrocortisone acetate 25 MG Rectal Suppository 05/22/2021 12:00:00 AM EDT eCW1 ([facility]) hydrocortisone acetate 25 MG Rectal Suppository 05/22/2021 12:00:00 AM EDT eCW1 ([facility]) hydrocortisone acetate 25 MG Rectal Suppository 05/22/2021 12:00:00 AM EDT eCW1 ([facility]) hydrocortisone acetate 25 MG Rectal Suppository 05/22/2021 12:00:00 AM EDT eCW1 ([facility]) hydrocortisone acetate 25 MG Rectal Suppository 05/22/2021 12:00:00 AM EDT eCW1 ([facility]) hydrocortisone acetate 25 MG Rectal Suppository 05/22/2021 12:00:00 AM EDT eCW1 ([facility]) hydrocortisone acetate 25 MG Rectal Suppository 05/22/2021 12:00:00 AM EDT eCW1 ([facility]) hydrocortisone acetate 25 MG Rectal Suppository 05/22/2021 12:00:00 AM EDT eCW1 ([facility]) hydrocortisone acetate 25 MG Rectal Suppository 05/22/2021 12:00:00 AM EDT eCW1 ([facility]) hydrocortisone acetate 25 MG Rectal Suppository 05/22/2021 12:00:00 AM EDT eCW1 ([facility]) hydrocortisone acetate 25 MG Rectal Suppository 05/22/2021 12:00:00 AM EDT eCW1 ([facility]) hydrocortisone acetate 25 MG Rectal Suppository 05/22/2021 12:00:00 AM EDT eCW1 ([facility]) hydrocortisone acetate 25 MG Rectal Suppository 05/22/2021 12:00:00 AM EDT eCW1 ([facility]) hydrocortisone acetate 25 MG Rectal Suppository 05/22/2021 12:00:00 AM EDT eCW1 ([facility]) hydrocortisone acetate 25 MG Rectal Suppository 05/22/2021 12:00:00 AM EDT eCW1 ([facility]) hydrocortisone acetate 25 MG Rectal Suppository 05/22/2021 12:00:00 AM EDT eCW1 ([facility]) hydrocortisone acetate 25 MG Rectal Suppository 05/22/2021 12:00:00 AM EDT eCW1 ([facility]) hydrocortisone acetate 25 MG Rectal Suppository 05/22/2021 12:00:00 AM EDT eCW1 ([facility]) hydrocortisone acetate 25 MG Rectal Suppository 05/22/2021 12:00:00 AM EDT eCW1 ([facility]) hydrocortisone acetate 25 MG Rectal Suppository 05/22/2021 12:00:00 AM EDT eCW1 ([facility]) hydrocortisone acetate 25 MG Rectal Suppository 05/22/2021 12:00:00 AM EDT eCW1 ([facility]) hydrocortisone acetate 25 MG Rectal Suppository 05/22/2021 12:00:00 AM EDT eCW1 ([facility]) hydrocortisone acetate 25 MG Rectal Suppository 05/22/2021 12:00:00 AM EDT eCW1 ([facility]) hydrocortisone acetate 25 MG Rectal Suppository 05/22/2021 12:00:00 AM EDT eCW1 ([facility]) Cyanocobalamin 1000 MCG/ML 05/16/2021 12:00:00 AM EDT eCW1 ([facility]) Mouthwashes - 05/16/2021 12:00:00 AM EDT eCW1 ([facility]) 3 ml syringe 25 gauge 05/16/2021 12:00:00 AM EDT eCW1 ([facility]) Cyanocobalamin 1000 MCG/ML 05/16/2021 12:00:00 AM EDT eCW1 ([facility]) Mouthwashes - 05/16/2021 12:00:00 AM EDT eCW1 ([facility]) Cyanocobalamin 1000 MCG/ML 05/16/2021 12:00:00 AM EDT eCW1 ([facility]) Mouthwashes - 05/16/2021 12:00:00 AM EDT eCW1 ([facility]) 3 ml syringe 25 gauge 05/16/2021 12:00:00 AM EDT eCW1 ([facility]) Cyanocobalamin 1000 MCG/ML 05/16/2021 12:00:00 AM EDT eCW1 ([facility]) Mouthwashes - 05/16/2021 12:00:00 AM EDT eCW1 ([facility]) 3 ml syringe 25 gauge 05/16/2021 12:00:00 AM EDT eCW1 ([facility]) Cyanocobalamin 1000 MCG/ML 05/16/2021 12:00:00 AM EDT eCW1 ([facility]) Mouthwashes - 05/16/2021 12:00:00 AM EDT eCW1 ([facility]) 3 ml syringe 25 gauge 05/16/2021 12:00:00 AM EDT eCW1 ([facility]) Cyanocobalamin 1000 MCG/ML 05/16/2021 12:00:00 AM EDT eCW1 ([facility]) Mouthwashes - 05/16/2021 12:00:00 AM EDT eCW1 ([facility]) 3 ml syringe 25 gauge 05/16/2021 12:00:00 AM EDT eCW1 ([facility]) Cyanocobalamin 1000 MCG/ML 05/16/2021 12:00:00 AM EDT eCW1 ([facility]) Mouthwashes - 05/16/2021 12:00:00 AM EDT eCW1 ([facility]) 3 ml syringe 25 gauge 05/16/2021 12:00:00 AM EDT eCW1 ([facility]) Cyanocobalamin 1000 MCG/ML 05/16/2021 12:00:00 AM EDT eCW1 ([facility]) Mouthwashes - 05/16/2021 12:00:00 AM EDT eCW1 ([facility]) 3 ml syringe 25 gauge 05/16/2021 12:00:00 AM EDT eCW1 ([facility]) Cyanocobalamin 1000 MCG/ML 05/16/2021 12:00:00 AM EDT eCW1 ([facility]) Mouthwashes - 05/16/2021 12:00:00 AM EDT eCW1 ([facility]) 3 ml syringe 25 gauge 05/16/2021 12:00:00 AM EDT eCW1 ([facility]) Cyanocobalamin 1000 MCG/ML 05/16/2021 12:00:00 AM EDT eCW1 ([facility]) Mouthwashes - 05/16/2021 12:00:00 AM EDT eCW1 ([facility]) 3 ml syringe 25 gauge 05/16/2021 12:00:00 AM EDT eCW1 ([facility]) 3 ml syringe 25 gauge 05/16/2021 12:00:00 AM EDT eCW1 ([facility]) Cyanocobalamin 1000 MCG/ML 05/16/2021 12:00:00 AM EDT eCW1 ([facility]) Mouthwashes - 05/16/2021 12:00:00 AM EDT eCW1 ([facility]) 3 ml syringe 25 gauge 05/16/2021 12:00:00 AM EDT eCW1 ([facility]) Cyanocobalamin 1000 MCG/ML 05/16/2021 12:00:00 AM EDT eCW1 ([facility]) Mouthwashes - 05/16/2021 12:00:00 AM EDT eCW1 ([facility]) 3 ml syringe 25 gauge 05/16/2021 12:00:00 AM EDT eCW1 ([facility]) Cyanocobalamin 1000 MCG/ML 05/16/2021 12:00:00 AM EDT eCW1 ([facility]) Mouthwashes - 05/16/2021 12:00:00 AM EDT eCW1 ([facility]) 3 ml syringe 25 gauge 05/16/2021 12:00:00 AM EDT eCW1 ([facility]) Cyanocobalamin 1000 MCG/ML 05/16/2021 12:00:00 AM EDT eCW1 ([facility]) Mouthwashes - 05/16/2021 12:00:00 AM EDT eCW1 ([facility]) Cyanocobalamin 1000 MCG/ML 05/16/2021 12:00:00 AM EDT eCW1 ([facility]) Mouthwashes - 05/16/2021 12:00:00 AM EDT eCW1 ([facility]) 3 ml syringe 25 gauge 05/16/2021 12:00:00 AM EDT eCW1 ([facility]) 3 ml syringe 25 gauge 05/16/2021 12:00:00 AM EDT eCW1 ([facility]) Cyanocobalamin 1000 MCG/ML 05/16/2021 12:00:00 AM EDT eCW1 ([facility]) Mouthwashes - 05/16/2021 12:00:00 AM EDT eCW1 ([facility]) 3 ml syringe 25 gauge 05/16/2021 12:00:00 AM EDT eCW1 ([facility]) Cyanocobalamin 1000 MCG/ML 05/16/2021 12:00:00 AM EDT eCW1 ([facility]) Mouthwashes - 05/16/2021 12:00:00 AM EDT eCW1 ([facility]) 3 ml syringe 25 gauge 05/16/2021 12:00:00 AM EDT eCW1 ([facility]) Cyanocobalamin 1000 MCG/ML 05/16/2021 12:00:00 AM EDT eCW1 ([facility]) Mouthwashes - 05/16/2021 12:00:00 AM EDT eCW1 ([facility]) 3 ml syringe 25 gauge 05/16/2021 12:00:00 AM EDT eCW1 ([facility]) Mouthwashes - 05/16/2021 12:00:00 AM EDT eCW1 ([facility]) 3 ml syringe 25 gauge 05/16/2021 12:00:00 AM EDT eCW1 ([facility]) 3 ml syringe 25 gauge 05/16/2021 12:00:00 AM EDT eCW1 ([facility]) Cyanocobalamin 1000 MCG/ML 05/16/2021 12:00:00 AM EDT eCW1 ([facility]) Mouthwashes - 05/16/2021 12:00:00 AM EDT eCW1 ([facility]) 3 ml syringe 25 gauge 05/16/2021 12:00:00 AM EDT eCW1 ([facility]) Cyanocobalamin 1000 MCG/ML 05/16/2021 12:00:00 AM EDT eCW1 ([facility]) Cyanocobalamin 1000 MCG/ML 05/16/2021 12:00:00 AM EDT eCW1 ([facility]) Mouthwashes - 05/16/2021 12:00:00 AM EDT eCW1 ([facility]) 3 ml syringe 25 gauge 05/16/2021 12:00:00 AM EDT eCW1 ([facility]) Cyanocobalamin 1000 MCG/ML 05/16/2021 12:00:00 AM EDT eCW1 ([facility]) Mouthwashes - 05/16/2021 12:00:00 AM EDT eCW1 ([facility]) 3 ml syringe 25 gauge 05/16/2021 12:00:00 AM EDT eCW1 ([facility]) Cyanocobalamin 1000 MCG/ML 05/16/2021 12:00:00 AM EDT eCW1 ([facility]) Mouthwashes - 05/16/2021 12:00:00 AM EDT eCW1 ([facility]) 3 ml syringe 25 gauge 05/16/2021 12:00:00 AM EDT eCW1 ([facility]) Cyanocobalamin 1000 MCG/ML 05/16/2021 12:00:00 AM EDT eCW1 ([facility]) Mouthwashes - 05/16/2021 12:00:00 AM EDT eCW1 ([facility]) 3 ml syringe 25 gauge 05/16/2021 12:00:00 AM EDT eCW1 ([facility]) Cyanocobalamin 1000 MCG/ML 05/16/2021 12:00:00 AM EDT eCW1 ([facility]) Mouthwashes - 05/16/2021 12:00:00 AM EDT eCW1 ([facility]) Mouthwashes - 05/16/2021 12:00:00 AM EDT eCW1 ([facility]) 3 ml syringe 25 gauge 05/16/2021 12:00:00 AM EDT eCW1 ([facility]) Cyanocobalamin 1000 MCG/ML 05/16/2021 12:00:00 AM EDT eCW1 ([facility]) Mouthwashes - 05/16/2021 12:00:00 AM EDT eCW1 ([facility]) 3 ml syringe 25 gauge 05/16/2021 12:00:00 AM EDT eCW1 ([facility]) Cyanocobalamin 1000 MCG/ML 05/16/2021 12:00:00 AM EDT eCW1 ([facility]) Mouthwashes - 05/16/2021 12:00:00 AM EDT eCW1 ([facility]) 3 ml syringe 25 gauge 05/16/2021 12:00:00 AM EDT eCW1 ([facility]) Cyanocobalamin 1000 MCG/ML 05/16/2021 12:00:00 AM EDT eCW1 ([facility]) 0.5 ML ustekinumab 90 MG/ML Prefilled Syringe [[facility] ] 05/13/2021 12:00:00 AM EDT eCW1 ([facility]) 0.5 ML ustekinumab 90 MG/ML Prefilled Syringe [[facility] ] 05/13/2021 12:00:00 AM EDT eCW1 ([facility]) 0.5 ML ustekinumab 90 MG/ML Prefilled Syringe [[facility] ] 05/13/2021 12:00:00 AM EDT eCW1 ([facility]) 0.5 ML ustekinumab 90 MG/ML Prefilled Syringe [[facility] ] 05/13/2021 12:00:00 AM EDT eCW1 ([facility]) 0.5 ML ustekinumab 90 MG/ML Prefilled Syringe [[facility] ] 05/13/2021 12:00:00 AM EDT eCW1 ([facility]) 0.5 ML ustekinumab 90 MG/ML Prefilled Syringe [[facility] ] 05/13/2021 12:00:00 AM EDT eCW1 ([facility]) Alprazolam 0.25 MG Oral Tablet 05/13/2021 12:00:00 AM EDT [facility]CW[facility]) 0.5 ML ustekinumab 90 MG/ML Prefilled Syringe [Stelara ] 05/13/2021 12:00:00 AM EDT eCW1 ([facility]) Alprazolam 0.25 MG Oral Tablet 05/13/2021 12:00:00 AM EDT [facility] 0.5 ML ustekinumab 90 MG/ML Prefilled Syringe [Stelara ] 05/13/2021 12:00:00 AM EDT eCW1 ([facility]) Alprazolam 0.25 MG Oral Tablet 05/13/2021 12:00:00 AM EDT [facility] 0.5 ML ustekinumab 90 MG/ML Prefilled Syringe [Stelara ] 05/13/2021 12:00:00 AM EDT eCW1 ([facility]) Alprazolam 0.25 MG Oral Tablet 05/13/2021 12:00:00 AM EDT [facility]CW[facility] 0.5 ML ustekinumab 90 MG/ML Prefilled Syringe [Stelara ] 05/13/2021 12:00:00 AM EDT eCW1 ([facility]) 0.5 ML ustekinumab 90 MG/ML Prefilled Syringe [Stelara ] 05/13/2021 12:00:00 AM EDT eCW1 ([facility]) Alprazolam 0.25 MG Oral Tablet 05/13/2021 12:00:00 AM EDT [facility]CW1 [facility] 0.5 ML ustekinumab 90 MG/ML Prefilled Syringe [Stelara ] 05/13/2021 12:00:00 AM EDT eCW1 ([facility]) Alprazolam 0.25 MG Oral Tablet 05/13/2021 12:00:00 AM EDT [facility]CW1 [facility] 0.5 ML ustekinumab 90 MG/ML Prefilled Syringe [Stelara ] 05/13/2021 12:00:00 AM EDT eCW1 ([facility]) Alprazolam 0.25 MG Oral Tablet 05/13/2021 12:00:00 AM EDT [facility]CW1 [facility] 0.5 ML ustekinumab 90 MG/ML Prefilled Syringe [Stelara ] 05/13/2021 12:00:00 AM EDT eCW1 ([facility]) Alprazolam 0.25 MG Oral Tablet 05/13/2021 12:00:00 AM EDT [facility]CW1 [facility] Alprazolam 0.25 MG Oral Tablet 05/13/2021 12:00:00 AM EDT eCW1 [facility]) 0.5 ML ustekinumab 90 MG/ML Prefilled Syringe [Stelara ] 05/13/2021 12:00:00 AM EDT eCW1 ([facility]) 0.5 ML ustekinumab 90 MG/ML Prefilled Syringe [Stelara ] 05/13/2021 12:00:00 AM EDT eCW1 ([facility]) Alprazolam 0.25 MG Oral Tablet 05/13/2021 12:00:00 AM EDT eCW1 [facility] 0.5 ML ustekinumab 90 MG/ML Prefilled Syringe [Stelara ] 05/13/2021 12:00:00 AM EDT eCW1 ([facility]) Alprazolam 0.25 MG Oral Tablet 05/13/2021 12:00:00 AM EDT [facility]CW1 [facility] 0.5 ML ustekinumab 90 MG/ML Prefilled Syringe [Stelara ] 05/13/2021 12:00:00 AM EDT eCW1 ([facility]) Alprazolam 0.25 MG Oral Tablet 05/13/2021 12:00:00 AM EDT [facility]CW1 [facility] 0.5 ML ustekinumab 90 MG/ML Prefilled Syringe [Stelara ] 05/13/2021 12:00:00 AM EDT eCW1 ([facility]) Alprazolam 0.25 MG Oral Tablet 05/13/2021 12:00:00 AM EDT eCW1 [facility] 0.5 ML ustekinumab 90 MG/ML Prefilled Syringe [Stelara ] 05/13/2021 12:00:00 AM EDT eCW1 ([facility]) Alprazolam 0.25 MG Oral Tablet 05/13/2021 12:00:00 AM EDT eCW1 [facility]) Alprazolam 0.25 MG Oral Tablet 05/13/2021 12:00:00 AM EDT [facility]CW1 [facility]) 0.5 ML ustekinumab 90 MG/ML Prefilled Syringe [Stelara ] 05/13/2021 12:00:00 AM EDT eCW1 ([facility]) Alprazolam 0.25 MG Oral Tablet 05/13/2021 12:00:00 AM EDT [facility]CW1 [facility] 0.5 ML ustekinumab 90 MG/ML Prefilled Syringe [Stelara ] 05/13/2021 12:00:00 AM EDT eCW1 ([facility]) Alprazolam 0.25 MG Oral Tablet 05/13/2021 12:00:00 AM EDT eCW1 [facility] 0.5 ML ustekinumab 90 MG/ML Prefilled Syringe [Stelara ] 05/13/2021 12:00:00 AM EDT eCW1 ([facility]) Alprazolam 0.25 MG Oral Tablet 05/13/2021 12:00:00 AM EDT eCW1 [facility] 0.5 ML ustekinumab 90 MG/ML Prefilled Syringe [Stelara ] 05/13/2021 12:00:00 AM EDT eCW1 ([facility]) 0.5 ML ustekinumab 90 MG/ML Prefilled Syringe [Stelara ] 05/13/2021 12:00:00 AM EDT eCW1 ([facility]) Alprazolam 0.25 MG Oral Tablet 05/13/2021 12:00:00 AM EDT eCW1 [facility]) 0.5 ML ustekinumab 90 MG/ML Prefilled Syringe [Stelara ] 05/13/2021 12:00:00 AM EDT eCW1 ([facility]) Alprazolam 0.25 MG Oral Tablet 05/13/2021 12:00:00 AM EDT eCW1 [facility]) Alprazolam 0.25 MG Oral Tablet 05/13/2021 12:00:00 AM EDT eCW1 [facility]) 0.5 ML ustekinumab 90 MG/ML Prefilled Syringe [Stelara ] 05/13/2021 12:00:00 AM EDT eCW1 ([facility]) 0.5 ML ustekinumab 90 MG/ML Prefilled Syringe [Stelara ] 05/13/2021 12:00:00 AM EDT eCW1 ([facility]) Alprazolam 0.25 MG Oral Tablet 05/13/2021 12:00:00 AM EDT eCW1 [facility] 0.5 ML ustekinumab 90 MG/ML Prefilled Syringe [Stelara ] 05/13/2021 12:00:00 AM EDT eCW1 ([facility]) Alprazolam 0.25 MG Oral Tablet 05/13/2021 12:00:00 AM EDT eCW1 [facility]) 0.5 ML ustekinumab 90 MG/ML Prefilled Syringe [Stelara ] 05/13/2021 12:00:00 AM EDT eCW1 ([facility]) Alprazolam 0.25 MG Oral Tablet 05/13/2021 12:00:00 AM EDT eCW1 [facility] 0.5 ML ustekinumab 90 MG/ML Prefilled Syringe [Stelara ] 05/13/2021 12:00:00 AM EDT eCW1 ([facility]) Alprazolam 0.25 MG Oral Tablet 05/13/2021 12:00:00 AM EDT eCW1 [facility]) Acetaminophen 325 MG / Hydrocodone Bitartrate 7.5 MG O ral Tablet 05/11/2021 12:00:00 AM EDT eCW1 ([facility]) Acetaminophen 325 MG / Hydrocodone Bitartrate 7.5 MG O ral Tablet 05/11/2021 12:00:00 AM EDT eCW1 ([facility]) Acetaminophen 325 MG / Hydrocodone Bitartrate 7.5 MG O ral Tablet 05/11/2021 12:00:00 AM EDT eCW1 ([facility]) Acetaminophen 325 MG / Hydrocodone Bitartrate 7.5 MG O ral Tablet 04/22/2021 12:00:00 AM EDT eCW1 ([facility]) Acetaminophen 325 MG / Hydrocodone Bitartrate 7.5 MG O ral Tablet 04/22/2021 12:00:00 AM EDT eCW1 ([facility]) Acetaminophen 325 MG / Hydrocodone Bitartrate 7.5 MG O ral Tablet 04/01/2021 12:00:00 AM EDT eCW1 ([facility]) Acetaminophen 325 MG / Hydrocodone Bitartrate 7.5 MG O ral Tablet 04/01/2021 12:00:00 AM EDT eCW1 ([facility]) Acetaminophen 325 MG / Hydrocodone Bitartrate 7.5 MG O ral Tablet 04/01/2021 12:00:00 AM EDT eCW1 ([facility]) Acetaminophen 325 MG / Hydrocodone Bitartrate 7.5 MG O ral Tablet 04/01/2021 12:00:00 AM EDT eCW1 ([facility]) Levothyroxine Sodium 0.05 MG Oral Capsule 03/20/2021 12:00:00 AM ED T [facility]CW[facility] Levothyroxine Sodium 0.05 MG Oral Capsule 03/20/2021 12:00:00 AM ED T [facility]CW1 [facility] Levothyroxine Sodium 0.05 MG Oral Capsule 03/20/2021 12:00:00 AM ED T eCW1 [facility]) Levothyroxine Sodium 0.05 MG Oral Capsule 03/20/2021 12:00:00 AM ED T eCW1 [facility]) Levothyroxine Sodium 0.05 MG Oral Capsule 03/20/2021 12:00:00 AM ED T eCW1 [facility]) Levothyroxine Sodium 0.05 MG Oral Capsule 03/20/2021 12:00:00 AM ED T eCW1 [facility]) Levothyroxine Sodium 0.05 MG Oral Capsule 03/20/2021 12:00:00 AM ED T eCW1 [facility]) Levothyroxine Sodium 0.05 MG Oral Capsule 03/20/2021 12:00:00 AM ED T eCW1 [facility]) Levothyroxine Sodium 0.05 MG Oral Capsule 03/20/2021 12:00:00 AM ED T eCW1 [facility]) Acetaminophen 325 MG / Hydrocodone Bitartrate 7.5 MG O ral Tablet 03/06/2021 12:00:00 AM EDT eCW1 ([facility]) Acetaminophen 325 MG / Hydrocodone Bitartrate 7.5 MG O ral Tablet 03/06/2021 12:00:00 AM EDT eCW1 ([facility]) Acetaminophen 325 MG / Hydrocodone Bitartrate 7.5 MG O ral Tablet 03/06/2021 12:00:00 AM EDT eCW1 ([facility]) Acetaminophen 325 MG / Hydrocodone Bitartrate 7.5 MG O ral Tablet 03/06/2021 12:00:00 AM EDT eCW1 ([facility]) Acetaminophen 325 MG / Hydrocodone Bitartrate 7.5 MG O ral Tablet 02/10/2021 12:00:00 AM EDT eCW1 ([facility]) Acetaminophen 325 MG / Hydrocodone Bitartrate 7.5 MG O ral Tablet 02/10/2021 12:00:00 AM EDT eCW1 ([facility]) Acetaminophen 325 MG / Hydrocodone Bitartrate 7.5 MG O ral Tablet 01/24/2021 12:00:00 AM EST eCW1 ([facility]) Acetaminophen 325 MG / Hydrocodone Bitartrate 7.5 MG O ral Tablet 01/24/2021 12:00:00 AM EST eCW1 ([facility]) Acetaminophen 325 MG / Hydrocodone Bitartrate 7.5 MG O ral Tablet 01/07/2021 12:00:00 AM EST eCW1 ([facility]) Acetaminophen 325 MG / Hydrocodone Bitartrate 7.5 MG O ral Tablet 01/07/2021 12:00:00 AM EST eCW1 ([facility]) Acetaminophen 325 MG / Hydrocodone Bitartrate 7.5 MG O ral Tablet 01/07/2021 12:00:00 AM EST eCW1 ([facility]) Acetaminophen 325 MG / Hydrocodone Bitartrate 7.5 MG O ral Tablet 01/07/2021 12:00:00 AM EST eCW1 ([facility]) Acetaminophen 325 MG / Hydrocodone Bitartrate 7.5 MG O ral Tablet 01/07/2021 12:00:00 AM EST eCW1 ([facility]) Acetaminophen 325 MG / Hydrocodone Bitartrate 7.5 MG O ral Tablet 01/07/2021 12:00:00 AM EST eCW1 ([facility]) Acetaminophen 325 MG / Hydrocodone Bitartrate 7.5 MG O ral Tablet 01/07/2021 12:00:00 AM EST eCW1 ([facility]) Acetaminophen 325 MG / Hydrocodone Bitartrate 7.5 MG O ral Tablet 01/07/2021 12:00:00 AM EST eCW1 ([facility]) Acetaminophen 325 MG / Hydrocodone Bitartrate 7.5 MG O ral Tablet 01/07/2021 12:00:00 AM EST eCW1 ([facility]) Metronidazole 500 MG Oral Tablet 01/06/2021 12:00:00 AM EST [facility]CW[facility] Metronidazole 500 MG Oral Tablet 01/06/2021 12:00:00 AM EST eCW1 ([facility]) Metronidazole 500 MG Oral Tablet 01/06/2021 12:00:00 AM EST eCW1 ([facility]) Metronidazole 500 MG Oral Tablet 01/06/2021 12:00:00 AM EST eCW1 ([facility]) Metronidazole 500 MG Oral Tablet 01/06/2021 12:00:00 AM EST eCW1 ([facility]) Metronidazole 500 MG Oral Tablet 01/06/2021 12:00:00 AM EST eCW1 ([facility]) Metronidazole 500 MG Oral Tablet 01/06/2021 12:00:00 AM EST eCW1 ([facility]) Metronidazole 500 MG Oral Tablet 01/06/2021 12:00:00 AM EST eCW1 ([facility]) Metronidazole 500 MG Oral Tablet 01/06/2021 12:00:00 AM EST eCW1 ([facility]) Metronidazole 500 MG Oral Tablet 01/06/2021 12:00:00 AM EST eCW1 ([facility]) Metronidazole 500 MG Oral Tablet 01/06/2021 12:00:00 AM EST eCW1 ([facility]) Metronidazole 500 MG Oral Tablet 01/06/2021 12:00:00 AM EST eCW1 ([facility]) Metronidazole 500 MG Oral Tablet 01/06/2021 12:00:00 AM EST eCW1 ([facility]) al mag [id number] lidocaine (MAGIC MOUTHWASH) suspension 12/25/2020 12:00:00 AM EST [facility] Fluconazole 150 MG Oral Tablet 12/23/2020 12:00:00 AM EST eCW1 [facility] Fluconazole 150 MG Oral Tablet 12/23/2020 12:00:00 AM EST eCW1 ([facility]) Fluconazole 150 MG Oral Tablet 12/23/2020 12:00:00 AM EST eCW1 ([facility]) Fluconazole 150 MG Oral Tablet 12/23/2020 12:00:00 AM EST eCW1 ([facility]) Fluconazole 150 MG Oral Tablet 12/23/2020 12:00:00 AM EST eCW1 ([facility]) Fluconazole 150 MG Oral Tablet 12/23/2020 12:00:00 AM EST eCW1 ([facility]) Fluconazole 150 MG Oral Tablet 12/23/2020 12:00:00 AM EST eCW1 ([facility]) Fluconazole 150 MG Oral Tablet 12/23/2020 12:00:00 AM EST eCW1 ([facility]) Fluconazole 150 MG Oral Tablet 12/23/2020 12:00:00 AM EST eCW1 ([facility]) Fluconazole 150 MG Oral Tablet 12/23/2020 12:00:00 AM EST eCW1 ([facility]) Fluconazole 150 MG Oral Tablet 12/23/2020 12:00:00 AM EST eCW1 ([facility]) Fluconazole 150 MG Oral Tablet 12/23/2020 12:00:00 AM EST eCW1 ([facility]) Fluconazole 150 MG Oral Tablet 12/23/2020 12:00:00 AM EST eCW1 ([facility]) Fluconazole 150 MG Oral Tablet 12/23/2020 12:00:00 AM EST eCW1 ([facility]) Fluconazole 150 MG Oral Tablet 12/23/2020 12:00:00 AM EST eCW1 ([facility]) Fluconazole 150 MG Oral Tablet 12/23/2020 12:00:00 AM EST eCW1 ([facility]) Fluconazole 150 MG Oral Tablet 12/23/2020 12:00:00 AM EST eCW1 ([facility]) Fluconazole 150 MG Oral Tablet 12/23/2020 12:00:00 AM EST eCW1 ([facility]) Fluconazole 150 MG Oral Tablet 12/23/2020 12:00:00 AM EST eCW1 ([facility]) Azithromycin 500 MG Oral Tablet 12/20/2020 12:00:00 AM EST eCW1 ([facility]) Azithromycin 500 MG Oral Tablet 12/20/2020 12:00:00 AM EST eCW1 ([facility]) Azithromycin 500 MG Oral Tablet 12/20/2020 12:00:00 AM EST eCW1 ([facility]) Azithromycin 500 MG Oral Tablet 12/20/2020 12:00:00 AM EST eCW1 ([facility]) Azithromycin 500 MG Oral Tablet 12/20/2020 12:00:00 AM EST eCW1 ([facility]) Azithromycin 500 MG Oral Tablet 12/20/2020 12:00:00 AM EST eCW1 ([facility]) Azithromycin 500 MG Oral Tablet 12/20/2020 12:00:00 AM EST eCW1 ([facility]) Azithromycin 500 MG Oral Tablet 12/20/2020 12:00:00 AM EST eCW1 ([facility]) Azithromycin 500 MG Oral Tablet 12/20/2020 12:00:00 AM EST eCW1 ([facility]) Azithromycin 500 MG Oral Tablet 12/20/2020 12:00:00 AM EST eCW1 ([facility]) Azithromycin 500 MG Oral Tablet 12/20/2020 12:00:00 AM EST eCW1 ([facility]) Azithromycin 500 MG Oral Tablet 12/20/2020 12:00:00 AM EST eCW1 ([facility]) Azithromycin 500 MG Oral Tablet 12/20/2020 12:00:00 AM EST eCW1 ([facility]) Azithromycin 500 MG Oral Tablet 12/20/2020 12:00:00 AM EST eCW1 ([facility]) Azithromycin 500 MG Oral Tablet 12/20/2020 12:00:00 AM EST eCW1 ([facility]) Azithromycin 500 MG Oral Tablet 12/20/2020 12:00:00 AM EST eCW1 ([facility]) Azithromycin 500 MG Oral Tablet 12/20/2020 12:00:00 AM EST eCW1 ([facility]) Azithromycin 500 MG Oral Tablet 12/20/2020 12:00:00 AM EST eCW1 [facility]) Azithromycin 500 MG Oral Tablet 12/20/2020 12:00:00 AM EST eCW1 [facility]) Trazodone Hydrochloride 50 MG Oral Tablet 12/13/2020 12:00:00 AM [facility] buspirone hydrochloride 15 MG Oral Tablet 12/13/2020 12:00:00 AM [facility] Acetaminophen 325 MG / Hydrocodone Bitartrate 7.5 MG O ral Tablet 12/13/2020 12:00:00 AM EST eCW1 ([facility]) Trazodone Hydrochloride 50 MG Oral Tablet 12/13/2020 12:00:00 AM ES T eCW1 [facility]) Acetaminophen 325 MG / Hydrocodone Bitartrate 7.5 MG O ral Tablet 12/13/2020 12:00:00 AM EST eCW1 ([facility]) Trazodone Hydrochloride 50 MG Oral Tablet 12/13/2020 12:00:00 AM ES T eCW1 [facility]) Acetaminophen 325 MG / Hydrocodone Bitartrate 7.5 MG O ral Tablet 12/13/2020 12:00:00 AM EST eCW1 ([facility]) Trazodone Hydrochloride 50 MG Oral Tablet 12/13/2020 12:00:00 AM ES T eCW1 [facility]) drospirenone 3 MG / Ethinyl Estradiol 0.02 MG Oral Tab let 12/12/2020 12:00:00 AM EST [facility] Acetaminophen 325 MG / Hydrocodone Bitartrate 5 MG Ora l Tablet 10/31/2020 12:00:00 AM EST eCW1 ([facility]) Acetaminophen 325 MG / Hydrocodone Bitartrate 5 MG Ora l Tablet 10/31/2020 12:00:00 AM EST eCW1 ([facility]) Acetaminophen 325 MG / Hydrocodone Bitartrate 5 MG Ora l Tablet 10/31/2020 12:00:00 AM EST eCW1 ([facility]) Acetaminophen 325 MG / Hydrocodone Bitartrate 5 MG Ora l Tablet 10/31/2020 12:00:00 AM EST eCW1 ([facility]) Acetaminophen 325 MG / Hydrocodone Bitartrate 5 MG Ora l Tablet 10/31/2020 12:00:00 AM EST eCW1 ([facility]) Acetaminophen 325 MG / Hydrocodone Bitartrate 5 MG Ora l Tablet 10/31/2020 12:00:00 AM EST eCW1 ([facility]) Acetaminophen 325 MG / Hydrocodone Bitartrate 5 MG Ora l Tablet 10/31/2020 12:00:00 AM EST eCW1 ([facility]) Sertraline 50 MG Oral Tablet 10/18/2020 12:00:00 AM EST [facility]CW1 [facility] buspirone hydrochloride 15 MG Oral Tablet 10/18/2020 12:00:00 AM ES T eCW1 ([facility]) buspirone hydrochloride 15 MG Oral Tablet 10/18/2020 12:00:00 AM ES T eCW1 ([facility]) buspirone hydrochloride 15 MG Oral Tablet 10/18/2020 12:00:00 AM ES T eCW1 ([facility]) buspirone hydrochloride 7.5 MG Oral Tablet 10/18/2020 12:00:[address] [facility]CW[facility]) Sertraline 50 MG Oral Tablet 10/18/2020 12:00:00 AM EST eCW1 ([facility]) buspirone hydrochloride 7.5 MG Oral Tablet 10/18/2020 12:00:[address] [facility]CW[facility]) Sertraline 50 MG Oral Tablet 10/18/2020 12:00:00 AM EST eCW1 ([facility]) buspirone hydrochloride 7.5 MG Oral Tablet 10/18/2020 12:00:[address] [facility]CW[facility]) Sertraline 50 MG Oral Tablet 10/18/2020 12:00:00 AM EST eCW1 ([facility]) buspirone hydrochloride 7.5 MG Oral Tablet 10/18/2020 12:00:[address] [facility]CW[facility]) Sertraline 50 MG Oral Tablet 10/18/2020 12:00:00 AM EST eCW1 ([facility]) buspirone hydrochloride 7.5 MG Oral Tablet 10/18/2020 12:00:[address] [facility]CW[facility]) Sertraline 50 MG Oral Tablet 10/18/2020 12:00:00 AM EST eCW1 ([facility]) buspirone hydrochloride 7.5 MG Oral Tablet 10/18/2020 12:00:[address] eCW1 [facility]) Sertraline 50 MG Oral Tablet 10/18/2020 12:00:00 AM EST eCW1 ([facility]) buspirone hydrochloride 7.5 MG Oral Tablet 10/18/2020 12:00:[address] [facility]CW[facility] Sertraline 50 MG Oral Tablet 10/18/2020 12:00:00 AM EST eCW1 ([facility]) buspirone hydrochloride 7.5 MG Oral Tablet 10/18/2020 12:00:[address] [facility]CW[facility] Sertraline 50 MG Oral Tablet 10/18/2020 12:00:00 AM EST eCW1 [facility]) Acetaminophen 325 MG / Hydrocodone Bitartrate 5 MG Ora l Tablet 09/19/2020 12:00:00 AM EST eCW1 ([facility]) Acetaminophen 325 MG / Hydrocodone Bitartrate 5 MG Ora l Tablet 09/19/2020 12:00:00 AM EST eCW1 ([facility]) Acetaminophen 325 MG / Hydrocodone Bitartrate 5 MG Ora l Tablet 09/05/2020 12:00:00 AM EDT eCW1 ([facility]) Acetaminophen 325 MG / Hydrocodone Bitartrate 5 MG Ora l Tablet 09/05/2020 12:00:00 AM EDT eCW1 ([facility]) Acetaminophen 325 MG / Hydrocodone Bitartrate 5 MG Ora l Tablet 09/05/2020 12:00:00 AM EDT eCW1 ([facility]) Acetaminophen 325 MG / Hydrocodone Bitartrate 5 MG Ora l Tablet 08/26/2020 12:00:00 AM EDT eCW1 ([facility]) Naproxen 500 MG Oral Tablet [facility]
[2021-09-12] MEDS ORDERED: ONDANSETRON 4MG/2ML VIAL As Ordered ONE (13:01)
[2021-09-12] MEDS ORDERED: propofoL 200 MG/20 ML VIAL As Ordered ONE (13:11)
--- NOTE | 2021-09-12 13:51 | ROOR ---
Patient Name: Teressa Carter Procedure Date: 09/12/2021 1:02 PM Date of : 1970 Age: 50 [facility]: [facility] Gender: Female Note Status: Finalized Procedure: Upper GI endoscopy Indications: Epigastric abdominal pain, Dyspepsia Providers: Joni Vazquez MD Referring MD: Joaquin Rueda MD Requesting Provider: Medicines: Monitored Anesthesia Care Complications: No immediate complications. Procedure: Pre-Anesthesia Assessment: - Prior to the procedure, a History and Physical was performed, and patient medications and allergies were reviewed. The patient is competent. The risks and benefits of the procedure and the sedation options and risks were discussed with the patient. All questions were answered and informed consent was obtained. Patient identification and proposed procedure were verified by the physician, the nurse and the anesthesiologist in the procedure room. Mental Status Examination: alert and oriented. Airway Examination: normal oropharyngeal airway and neck mobility. Respiratory Examination: clear to auscultation. CV Examination: normal. Prophylactic Antibiotics: The patient does not require prophylactic antibiotics. Prior Anticoagulants: The patient has taken no previous anticoagulant or antiplatelet agents. ASA Grade Assessment: II - A patient with mild systemic disease. After reviewing the risks and benefits, the patient was deemed in satisfactory condition to undergo the procedure. The anesthesia plan was to use monitored anesthesia care (MAC). Immediately prior to administration of medications, the patient was re-assessed for adequacy to receive sedatives. The heart rate, respiratory rate, oxygen saturations, blood pressure, adequacy of pulmonary ventilation, and response to care were monitored throughout the procedure. The physical status of the patient was re-assessed after the procedure. The Endoscope was introduced through the mouth, and advanced to the third part of duodenum. The upper GI endoscopy was accomplished without difficulty. The patient tolerated the procedure well. Findings: The examined esophagus was normal. Scattered moderate inflammation characterized by erythema and granularity was found in the gastric antrum and at the pylorus. Biopsies were taken with a cold forceps for Helicobacter pylori testing. Verification of patient identification for the specimen was done by the physician and nurse using the patient's name, date and medical record number. Estimated blood loss was minimal. One non-obstructing non-bleeding superficial gastric ulcer of mild severity with a clean ulcer base (Phong Class III) was found at the pylorus. Biopsies were taken with a cold forceps for histology. The duodenal bulb and second portion of the duodenum were normal. Biopsies for histology were taken with a cold forceps for evaluation of celiac disease. Impression: - Normal esophagus. - Gastritis. Biopsied. - Non-obstructing non-bleeding gastric ulcer with a clean ulcer base (Phong Class III). NSAID induced etiology. Biopsied. - Normal duodenal bulb and second portion of the duodenum. Biopsied. Recommendation: - Patient has a contact number available for emergencies. The signs and symptoms of potential delayed complications were discussed with the patient. Return to normal activities tomorrow. Written discharge instructions were provided to the patient. - High fiber diet. - Continue present medications. - Await pathology results. - Follow an antireflux regimen. - Use Protonix (pantoprazole) 40 mg PO twice daily - to be taken in morning (1/2 hour before breakfast) and at bedtime ( atleast 3 hours after last meal) for 6 weeks. - Telephone GI clinic for pathology results in 2 weeks. - Return to GI clinic in [facility] (address: [id number] [facility], [address] [place] [address], [place], [place],[address]) in 4 -- 6 weeks. Please call GI clinic @ [phone] for apppointment date and time. - Return to primary care physician. Procedure Code(s): --- Professional --- 37334, Esophagogastroduodenoscopy, flexible, transoral; with biopsy, single or multiple Diagnosis Code(s): --- Professional --- K29.70, Gastritis, unspecified, without bleeding T39.395S, Adverse effect of other nonsteroidal anti-inflammatory drugs [NSAID], sequela K25.9, Gastric ulcer, unspecified as acute or chronic, without hemorrhage or perforation R10.13, Epigastric pain CPT copyright 2019 [employer]. All rights reserved. The codes documented in this report are preliminary and upon community marketing coordinator review may be revised to meet current compliance requirements. Joni Vazquez MD Joni Vazquez MD 09/12/2021 1:50:55 PM Electronically signed by Joni Vazquez MD Number of Addenda: 0 Note Initiated On: 09/12/2021 1:02 PM Estimated Blood Loss: Estimated blood loss was minimal.
--- NOTE | 2021-09-12 13:58 | ROOR ---
Patient Name: Teressa Carter Procedure Date: 09/12/2021 1:04 PM Date of : 1970 Age: 50 Room: [facility] Gender: Female Note Status: Finalized Procedure: Colonoscopy Indications: Follow-up of Crohn's disease of the small bowel, Disease activity assessment of Crohn's disease of the small bowel Providers: Joni Vazquez MD Referring MD: Joaquin Rueda MD Requesting Provider: Medicines: Monitored Anesthesia Care Complications: No immediate complications. Procedure: Pre-Anesthesia Assessment: - Prior to the procedure, a History and Physical was performed, and patient medications and allergies were reviewed. The patient is competent. The risks and benefits of the procedure and the sedation options and risks were discussed with the patient. All questions were answered and informed consent was obtained. Patient identification and proposed procedure were verified by the physician, the nurse and the anesthesiologist in the procedure room. Mental Status Examination: alert and oriented. Airway Examination: normal oropharyngeal airway and neck mobility. Respiratory Examination: clear to auscultation. CV Examination: normal. Prophylactic Antibiotics: The patient does not require prophylactic antibiotics. Prior Anticoagulants: The patient has taken no previous anticoagulant or antiplatelet agents. ASA Grade Assessment: II - A patient with mild systemic disease. After reviewing the risks and benefits, the patient was deemed in satisfactory condition to undergo the procedure. The anesthesia plan was to use monitored anesthesia care (MAC). Immediately prior to administration of medications, the patient was re-assessed for adequacy to receive sedatives. The heart rate, respiratory rate, oxygen saturations, blood pressure, adequacy of pulmonary ventilation, and response to care were monitored throughout the procedure. The physical status of the patient was re-assessed after the procedure. The Colonoscope was introduced through the anus and advanced to the terminal ileum, with identification of the appendiceal orifice and IC valve. The colonoscopy was performed without difficulty. The patient tolerated the procedure well. The quality of the bowel preparation was good. The terminal ileum, ileocecal valve, appendiceal orifice, and rectum were photographed. Scope insertion time was 2 minutes. Scope withdrawal time was 8 minutes. The total duration of the procedure was 12 minutes. Findings: The perianal and digital rectal examinations were normal. Patchy inflammation, graded as Rutgeerts Score i2 (more than five aphthous lesions with normal intervening mucosa or skip areas of larger lesions or lesions confined to the ileocolonic anastomosis) and characterized by congestion (edema), erosions, granularity and aphthous ulcerations was found in the argenis-terminal Ileum. Biopsies were taken with a cold forceps for histology. Verification of patient identification for the specimen was done by the physician and nurse using the patient's name, date and medical record number. Estimated blood loss was minimal. Normal mucosa was found in the entire colon. There was evidence of a prior functional end-to-end ileo-colonic anastomosis in the ascending colon. This was patent and was characterized by congestion, erosion and mild stenosis. The anastomosis was traversed. Multiple small and large-mouthed diverticula were found from sigmoid to transverse colon. There was no evidence of diverticular bleeding. Non-bleeding external and internal hemorrhoids were found during retroflexion. The hemorrhoids were small. Impression: - Crohn's disease with ileitis. Biopsied. - Normal mucosa in the entire examined colon. - Patent functional end-to-end ileo-colonic anastomosis, characterized by congestion, erosion and mild stenosis. - Moderate diverticulosis from sigmoid to transverse colon. There was no evidence of diverticular bleeding. - Non-bleeding external and internal hemorrhoids. Recommendation: - Patient has a contact number available for emergencies. The signs and symptoms of potential delayed complications were discussed with the patient. Return to normal activities tomorrow. Written discharge instructions were provided to the patient. - High fiber diet. - Continue present medications. - Await pathology results. - Repeat colonoscopy in 1 year to assess disease activity and to evaluate the response to therapy. - Telephone GI clinic for pathology results in 2 weeks. - Return to GI clinic in [facility] (address: [address] [place] [address], [address] [place] [address], [place], [place],[id number]) in 4 -- 6 weeks. Please call GI clinic @ [phone] for apppointment date and time. - Return to primary care physician. Procedure Code(s): --- Professional --- 56151, Colonoscopy, flexible; with biopsy, single or multiple Diagnosis Code(s): --- Professional --- K50.00, Crohn's disease of small intestine without complications K64.8, Other hemorrhoids Z98.0, Intestinal bypass and anastomosis status K57.30, Diverticulosis of large intestine without perforation or abscess without bleeding CPT copyright 2019 [employer]. All rights reserved. The codes documented in this report are preliminary and upon compliance tester review may be revised to meet current compliance requirements. Joni Vazquez MD Joni Vazquez MD 09/12/2021 1:57:46 PM Electronically signed by Joni Vazquez MD Number of Addenda: 0 Note Initiated On: 09/12/2021 1:04 PM Estimated Blood Loss: Estimated blood loss was minimal.
[2021-09-12] MEDS ORDERED: KETOROLAC 30 MG/ML 1ML VIAL IV ONE (14:00)
[2021-09-12 14:20] VITALS: BP 138/76
== END 2021-09-12 14:53 | disposition home or self-care (01) ==
LOC: M OPP 12:07
PROVIDERS: ATTEND Internal Medicine Gastroenterology
DX: K57.30 Diverticulosis of large intestine without perforation or abscess without bleeding (principal); K64.8 Other hemorrhoids; Z98.0 Intestinal bypass and anastomosis status; K50.00 Crohn's disease of small intestine without complications; K29.70 Gastritis, unspecified, without bleeding; K25.9 Gastric ulcer, unspecified as acute or chronic, without hemorrhage or perforation; T39.395S Adverse effect of other nonsteroidal anti-inflammatory drugs [NSAID], sequela; R10.13 Epigastric pain; Z79.899 Other long term (current) drug therapy; Z88.0 Allergy status to penicillin; Z88.8 Allergy status to other drugs, medicaments and biological substances; Z80.3 Family history of malignant neoplasm of breast; Z80.42 Family history of malignant neoplasm of prostate; Z86.79 Personal history of other diseases of the circulatory system; Z86.73 Personal history of transient ischemic attack (TIA), and cerebral infarction without residual deficits
CPT/HCPCS: 43239; 45380; 88305; 88342; J1885; J2405; J3010

== ENCOUNTER → 2021-10-07 | Outpatient (CLI) | payer BC ==
[~2021-10-07] MED LIST changes: -LIDOCAINE 2% 100MG/5ML SDV (FOR ANES.) As Ordered ONE; -NS 1,000 ML IV ONE; -fentaNYL 100 MCG/2 ML INJECTION (J3010) As Ordered ONE; -propofoL 500 MG/50 ML VIAL As Ordered ONE
--- NOTE | 2021-10-07 17:03 | REP ---
INDICATION: SHORTNESS OF BREATH COMPARISON: 06/27/2021 TECHNIQUE: PA and lateral. FINDINGS: The mediastinum and cardiac silhouette are normal. The lung cates are clear and without acute consolidation, effusion, or pneumothorax. The skeletal structures are intact and normal. IMPRESSION: No acute cardiopulmonary process. <Electronically signed by Matthew Peace > 10/07/21 2021
== END ==
LOC: M RAD 16:23
PROVIDERS: ATTEND Nurse Practitioner Adult Health
DX: R06.02 Shortness of breath (principal)

== ENCOUNTER 2021-10-17 10:56 | Outpatient (CLI) | payer BC ==
[~2021-10-17] VITALS: Ht 162.6 cm; Wt 81.8 kg
[~2021-10-17 10:56] MED LIST changes: +USTEKINUMAB 390 MG in NS 172 ML IV ONE
[2021-10-17 11:00] VITALS: BP 117/77
[2021-10-17 12:30] VITALS: BP 114/65
[2021-10-17 14:10] VITALS: BP 112/63
[2021-10-17 14:30] VITALS: BP 118/73
== END 2021-10-17 14:30 | disposition home or self-care (01) ==
LOC: M INFU 10:56
PROVIDERS: ATTEND Internal Medicine Gastroenterology
DX: K50.90 Crohn's disease, unspecified, without complications (principal); Z88.1 Allergy status to other antibiotic agents; Z88.8 Allergy status to other drugs, medicaments and biological substances
CPT/HCPCS: 96365; 96366; J3358

== ENCOUNTER → 2021-12-26 | Outpatient (REF) | payer BC ==
[~2021-12-26] MED LIST changes: +ONDA-84; -ONDA8TAB10; -SUMA6INJ16; +SUMA6INJ25; -USTEKINUMAB 390 MG in NS 172 ML IV ONE
[2021-12-26 13:41] LABS: FERRITIN 5 NG/ML (8-252); FOLATE > 24.0 NG/ML; IRON (FE) 35 UG/DL (50-170); PERCENT SATURATION 7.1 % (13.2-45.0); TOTAL IRON BINDING CAPACITY 491 UG/DL (250-450); VITAMIN B12 LEVEL 281 PG/ML
== END ==
LOC: M SFHCADAM 11:06
PROVIDERS: ATTEND Physician Assistant Medical
DX: D50.9 Iron deficiency anemia, unspecified (principal)

== ENCOUNTER → 2022-02-25 | Outpatient (REF) | payer BC ==
[~2022-02-25] MED LIST changes: +CYCL5TAB; +FURO20TA2 PO; +NOXI1TAB PO
[2022-02-25 17:32] LABS: APPEARANCE, URINE CLEAR (CLEAR); BACTERIA, URINE AUTO NEGATIVE (NEGATIVE); BILIRUBIN, URINE AUTO NEGATIVE (NEGATIVE); BLOOD, URINE BLOOD NEGATIVE (NEGATIVE); COLOR, URINE STRAW (YELLOW); GLUCOSE, URINE (UA) AUTO NEGATIVE (NEGATIVE); KETONE, URINE AUTO NEGATIVE (NEGATIVE); LEUKOCYTE ESTERASE, URINE AUTO NEGATIVE (NEGATIVE); MUCUS, URINE SMALL (NEGATIVE); NITRITE, URINE AUTO NEGATIVE (NEGATIVE); PROTEIN, URINE AUTO NEGATIVE (NEGATIVE); RBC, URINE AUTO 0 /HPF (0-3); SPECIFIC GRAVITY URINE AUTO 1.008 (1.002-1.035); SQUAMOUS EPITHELIAL CELL UR AU 2 /HPF (0-6); UROBILINOGEN, URINE AUTO 0.2 mg/dL (0.0-2.0); WBC, URINE AUTO 1 /HPF (0-3)
== END ==
LOC: M SFHCPLAZ 16:52
DX: Z51.81 Encounter for therapeutic drug level monitoring (principal); Z79.899 Other long term (current) drug therapy; R30.0 Dysuria

== ENCOUNTER → 2022-02-26 | Outpatient (CLI) | payer BC | LOC: M LAB 07:46 | DX: M32.13 Lung involvement in systemic lupus erythematosus (principal) ==

== ENCOUNTER → 2022-06-11 | Outpatient (CLI) | payer BC ==
[~2022-06-11] MED LIST changes: +ONDA-84 PO; +TROK1CAP5; +magic mouthwash
== END ==
LOC: M PLALAB 15:18
PROVIDERS: ATTEND Internal Medicine Gastroenterology
DX: K50.812 Crohn's disease of both small and large intestine with intestinal obstruction (principal); D50.9 Iron deficiency anemia, unspecified

== ENCOUNTER → 2022-06-11 | Outpatient (CLI) | payer BC ==
[2022-06-11 18:09] LABS: APPEARANCE, URINE CLOUDY (CLEAR); BACTERIA, URINE AUTO NEGATIVE (NEGATIVE); BILIRUBIN, URINE AUTO NEGATIVE (NEGATIVE); BLOOD, URINE BLOOD NEGATIVE (NEGATIVE); CALCIUM OXALATE CRYSTALS LARGE; COLOR, URINE AMBER (YELLOW); GLUCOSE, URINE (UA) AUTO NEGATIVE (NEGATIVE); KETONE, URINE AUTO NEGATIVE (NEGATIVE); LEUKOCYTE ESTERASE, URINE AUTO NEGATIVE (NEGATIVE); MUCUS, URINE SMALL (NEGATIVE); NITRITE, URINE AUTO NEGATIVE (NEGATIVE); PROTEIN, URINE AUTO NEGATIVE (NEGATIVE); RBC, URINE AUTO 2 /HPF (0-3); SPECIFIC GRAVITY URINE AUTO 1.016 (1.002-1.035); SQUAMOUS EPITHELIAL CELL UR AU 4 /HPF (0-6); UROBILINOGEN, URINE AUTO 0.2 mg/dL (0.0-2.0); WBC, URINE AUTO 2 /HPF (0-3)
[2022-06-11 18:34] LABS: CALCIUM LEVEL 9.3 MG/DL (8.5-10.1); CREATININE FOR GFR 1.29 MG/DL (0.55-1.30); GLOMERULAR FILTRATION RATE 46.8 (>58)
[2022-06-11 18:35] LABS: ALBUMIN 4.1 GM/DL (3.2-5.2); BILIRUBIN,TOTAL 0.2 MG/DL (0.2-1.0); TOTAL PROTEIN 7.4 GM/DL (6.4-8.2)
== END ==
LOC: M PLALAB 15:21
PROVIDERS: ATTEND Physician Assistant
DX: R10.30 Lower abdominal pain, unspecified (principal); N28.9 Disorder of kidney and ureter, unspecified

== ENCOUNTER → 2022-07-09 | Outpatient (CLI) | payer BC | LOC: M WHC 07:46 | PROVIDERS: ATTEND Nurse Practitioner Family | DX: Z12.31 Encounter for screening mammogram for malignant neoplasm of breast (principal) ==

== ENCOUNTER → 2022-08-12 | Outpatient (REF) | payer BC | LOC: M SFHCWAGY 17:11 | PROVIDERS: ATTEND Nurse Practitioner Family | DX: Z12.4 Encounter for screening for malignant neoplasm of cervix (principal); Z77.9 Other contact with and (suspected) exposures hazardous to health | CPT/HCPCS: 87624; G0123 ==

== ENCOUNTER → 2022-08-31 | Outpatient (CLI) | payer BC ==
[2022-08-31 17:33] LABS: BASO % 0.3 % (0.0-1.0); EOS # 0.2 10^3/uL (0.0-0.5); EOS % 2.8 % (0.0-3.0); HEMATOCRIT 40.4 % (36.0-47.0); HEMOGLOBIN 13.5 g/dl (12.0-15.5); LYMPH # 1.6 10^3/uL (1.5-5.0); LYMPH % 28.3 % (24.0-44.0); MEAN CORPUSCULAR HEMOGLOBIN 32.1 pg (27.0-33.0); MEAN CORPUSCULAR HGB CONC 33.4 g/dl (32.0-36.5); MEAN CORPUSCULAR VOLUME 96.2 fl (80.0-96.0); MONO # 0.5 10^3/uL (0.0-0.8); MONO % 8.4 % (2.0-8.0); NEUTROPHILS # 3.5 10^3/uL (1.5-8.5); PLATELET COUNT, AUTOMATED 190 10^3/uL (150-450); WHITE BLOOD COUNT 5.8 10^3/uL (4.0-10.0)
[2022-08-31 17:44] LABS: BLOOD UREA NITROGEN 13 MG/DL (7-18); CALCIUM LEVEL 9.1 MG/DL (8.5-10.1); CARBON DIOXIDE LEVEL 27 MEQ/L (21-32); CHLORIDE LEVEL 111 MEQ/L (98-107); CREATININE FOR GFR 0.96 MG/DL (0.55-1.30); GLOMERULAR FILTRATION RATE > 60.0 (>58); GLUCOSE, FASTING 76 MG/DL (70-100); POTASSIUM SERUM 4.4 MEQ/L (3.5-5.1); SODIUM LEVEL 142 MEQ/L (136-145)
[2022-08-31 18:33] LABS: ERYTHROCYTE SEDIMENTATION RATE 7 mm/hr (0-20)
== END ==
LOC: M WUC 14:07
PROVIDERS: ATTEND Internal Medicine Gastroenterology
DX: D50.9 Iron deficiency anemia, unspecified (principal)

== ENCOUNTER → 2022-08-31 | Outpatient (CLI) | payer BC ==
[2022-08-31 17:50] LABS: ALBUMIN 3.7 GM/DL (3.2-5.2); ALT/SGPT 30 U/L (12-78); BILIRUBIN,TOTAL 0.4 MG/DL (0.2-1.0); BLOOD UREA NITROGEN 13 MG/DL (7-18); CALCIUM LEVEL 9.2 MG/DL (8.5-10.1); CARBON DIOXIDE LEVEL 27 MEQ/L (21-32); CHLORIDE LEVEL 110 MEQ/L (98-107); CREATININE FOR GFR 1.01 MG/DL (0.55-1.30); GLOMERULAR FILTRATION RATE > 60.0 (>58); GLUCOSE, FASTING 77 MG/DL (70-100); POTASSIUM SERUM 4.6 MEQ/L (3.5-5.1); SODIUM LEVEL 141 MEQ/L (136-145); TOTAL PROTEIN 6.7 GM/DL (6.4-8.2)
== END ==
LOC: M WUC 14:04
PROVIDERS: ATTEND Physician Assistant
DX: R94.4 Abnormal results of kidney function studies (principal)

== ENCOUNTER → 2022-09-08 | Outpatient (CLI) | payer SELFPAY ==
[~2022-09-08] MED LIST changes: +ISOVUE-370 76% 100ML VIAL As Ordered ONE
== END ==
LOC: M RAD 08:43
PROVIDERS: ATTEND Physician Assistant
DX: I67.1 Cerebral aneurysm, nonruptured (principal)
CPT/HCPCS: 70496; Q9967

== ENCOUNTER → 2022-09-24 | Outpatient (CLI) | payer MEDICAID ==
[~2022-09-24] MED LIST changes: -ISOVUE-370 76% 100ML VIAL As Ordered ONE
== END ==
LOC: M PLARAD 15:29
PROVIDERS: ATTEND Physician Assistant
DX: I67.1 Cerebral aneurysm, nonruptured (principal)

== ENCOUNTER 2022-10-10 00:21 | Emergency (ER) | payer MEDICAID, BC ==
[~2022-10-10] VITALS: Ht 162.6 cm; Wt 85.5 kg
[2022-10-10 00:21] VITALS: BP 115/75
[2022-10-10] MEDS ORDERED: HYDR200T3 PO (00:29)
[2022-10-10] MEDS ORDERED: SING10TA32 PO (00:29)
[2022-10-10] MEDS ORDERED: STEL90IN SC (00:33)
== END 2022-10-10 06:12 | disposition left against medical advice (07) ==
LOC: M ED 00:21
DX: Z53.21 Procedure and treatment not carried out due to patient leaving prior to being seen by health care provider (principal)

== ENCOUNTER → 2022-12-24 | Outpatient (CLI) | payer OTHER ==
[~2022-12-24] MED LIST changes: +HYDR200T3 PO; +LIDO15SO4 PO; -LIDO2SOL17 PO; +PRED10TA2; +SING10TA32 PO; +STEL90IN SC
[2022-12-24 18:26] LABS: C REACTIVE PROTEIN QUANTITATIV 0.4 MG/DL (<1.0)
[2022-12-24 18:27] LABS: FREE T4 1.29 NG/DL (0.89-1.76); THYROID STIMULATING HORMONE 1.554 uIU/ML (0.55-4.78)
[2022-12-26 19:07] LABS: TESTOSTERONE FREE (DIRECT) 0.3 pg/mL (0.0-4.2); TESTOSTERONE TOTAL FOR T&D < 3.0 ng/dL (4-50)
== END ==
LOC: M LAB 17:31
PROVIDERS: ATTEND Physician Assistant
DX: R60.1 Generalized edema (principal); Z13.29 Encounter for screening for other suspected endocrine disorder; N95.1 Menopausal and female climacteric states

== ENCOUNTER 2023-02-02 05:53 | Inpatient (IN) | payer OTHER ==
[~2023-02-02] VITALS: Ht 162.6 cm; Wt 80.9 kg
[~2023-02-02 05:53] MED LIST changes: -LEVA45AE; +LEVA45AE INH; +MONT-5 PO; -PANT40TA29; +PANT40TA29 PO; -SING10TA32 PO; -SUMA100T2; +SUMA100T2 PO; -SUMA6INJ25; +SUMA6INJ25 SQ
[2023-02-02 06:57] LABS: BASO % 0.1 % (0.0-1.0); EOS # 0.2 10^3/uL (0.0-0.5); EOS % 1.1 % (0.0-3.0); HEMATOCRIT 40.3 % (36.0-47.0); HEMOGLOBIN 13.9 g/dl (12.0-15.5); LYMPH # 1.4 10^3/uL (1.5-5.0); MEAN CORPUSCULAR HEMOGLOBIN 32.1 pg (27.0-33.0); MEAN CORPUSCULAR HGB CONC 34.5 g/dl (32.0-36.5); MEAN CORPUSCULAR VOLUME 93.1 fl (80.0-96.0); MONO # 1.1 10^3/uL (0.0-0.8); MONO % 7.9 % (2.0-8.0); NEUTROPHILS # 11.4 10^3/uL (1.5-8.5); NEUTROPHILS % 80.6 % (36.0-66.0); PLATELET COUNT, AUTOMATED 184 10^3/uL (150-450); RED BLOOD COUNT 4.33 10^6/uL (4.00-5.40); WHITE BLOOD COUNT 14.1 10^3/uL (4.0-10.0)
[2023-02-02 07:22] LABS: LIPASE 38 U/L (12-53)
[2023-02-02] MEDS ORDERED: HYDR-4514 PO (07:23)
[2023-02-02 07:27] LABS: ALBUMIN 4.1 G/DL (3.2-5.2); ALKALINE PHOSPHATASE 58 U/L (46-116); ALT/SGPT 22 U/L (7.0-40); AST/SGOT 16 U/L (<34); BILIRUBIN,DIRECT 0.2 MG/DL (<0.4); BILIRUBIN,TOTAL 0.6 MG/DL (0.3-1.2); BLOOD UREA NITROGEN 16 MG/DL (9-23); CALCIUM LEVEL 9.4 MG/DL (8.5-10.1); CARBON DIOXIDE LEVEL 21 MMOL/L (20-31); CHLORIDE LEVEL 108 MMOL/L (98-107); CREATININE FOR GFR 1.01 MG/DL (0.55-1.30); GLOMERULAR FILTRATION RATE > 60.0 (>51); GLUCOSE, FASTING 102 MG/DL (60-100); POTASSIUM SERUM 3.4 MMOL/L (3.5-5.1); SODIUM LEVEL 138 MMOL/L (136-145); TOTAL PROTEIN 6.7 G/DL (5.7-8.2)
[2023-02-02] MEDS ORDERED: ONDANSETRON 4MG 2ML VIAL IV ONE (07:55)
[2023-02-02] MEDS: MORPHINE 4 MG/ML 1ML VIAL IV PRN ×6 (08:21→20:24)
[2023-02-02] MEDS: GASTROGRAFIN SOLUTION 30ML PO SCH ×2 (08:21→08:50)
[2023-02-02] MEDS ORDERED: ISOVUE-370 76% 100ML VIAL As Ordered ONE (08:58)
[2023-02-02] MEDS ORDERED: TOPAMAX 50 MG PO SCH (09:00)
[2023-02-02 09:13] LABS: RSV AMPLIFICATION NEGATIVE (NEGATIVE)
[2023-02-02] MEDS ORDERED: CIPROFLOXACIN 400 MG in IV 1 EA IV ONE (11:00)
[2023-02-02] MEDS ORDERED: metroNIDAZOLE 500 MG in IV 1 EA IV ONE (11:00)
[2023-02-02] MEDS ORDERED: PHEN15CA6 PO (12:18)
[2023-02-02] MEDS ORDERED: CLON0.5T17 PO (12:18)
[2023-02-02] MEDS ORDERED: LINZ72CA PO (12:18)
[2023-02-02] MEDS ORDERED: FURO20TA2 PO (12:18)
[2023-02-02] MEDS ORDERED: FOLI400T13 PO (12:18)
[2023-02-02] MEDS ORDERED: TRAZ-252 PO (12:18)
[2023-02-02] MEDS ORDERED: CYCL-707 PO (12:18)
[2023-02-02] MEDS ORDERED: ACET-897 PO (12:18)
[2023-02-02] MEDS ORDERED: SIME80CH5 PO (12:18)
[2023-02-02] MEDS ORDERED: AZEL1SPR3 NARES (12:18)
[2023-02-02] MEDS ORDERED: DIPH-435 PO (12:18)
[2023-02-02] MEDS ORDERED: VITA200032 PO (12:18)
[2023-02-02] MEDS ORDERED: BREO1INH3 INH (12:18)
[2023-02-02] MEDS ORDERED: HYOS0.374 PO (12:18)
[2023-02-02] MEDS ORDERED: IBUP80TA PO (12:18)
[2023-02-02] MEDS ORDERED: HYDR50TA70 PO (12:18)
[2023-02-02] MEDS ORDERED: BENF150C3 PO (12:18)
[2023-02-02] MEDS ORDERED: POTA99CA2 PO (12:18)
[2023-02-02] MEDS ORDERED: EQL50TAB2 PO (12:18)
[2023-02-02] MEDS ORDERED: TOPI1CAP4 PO (12:21)
[2023-02-02] MEDS ORDERED: HOME MED LIST COMPLETE! XX SCH (12:25)
[2023-02-02] MEDS: LR 1,000 ML IV SCH (15:07)
[2023-02-02] MEDS: ACETAMINOPHEN TAB 650MG DOSE (2X325MG) PO PRN (15:08)
[2023-02-02 15:30] VITALS: BP 147/76
[2023-02-02] MEDS: ONDANSETRON 4MG 2ML VIAL IV PRN (15:42)
[2023-02-02] MEDS: KCL 10MEQ/100ML SWI (KRUN) 10 MEQ in IV 1 EA IV SCH ×2 (15:43→18:18)
[2023-02-02] MEDS ORDERED: PANTOPRAZOLE 40MG VIAL IV SCH (16:00)
[2023-02-02] MEDS ORDERED: LEVALBUTEROL HFA 45MCG/ACT 15GM INHALER INH PRN (16:05)
[2023-02-02] MEDS: clonazePAM 0.5 MG TAB PO PRN (16:48)
[2023-02-02] MEDS: PIPERACILLIN/TAZOBACTAM SOD 3.375 GM in D5W MINI-BAG PLUS 50 ML IV SCH ×2 (16:48→21:26)
[2023-02-02] MEDS ORDERED: SUMAtriptan SUCCINATE 6MG/0.5ML VIAL SC ONE (18:00)
[2023-02-02] MEDS: PANTOPRAZOLE 40MG VIAL IV SCH (18:18)
[2023-02-02] MEDS: SYMBICORT 160/4.5MCG INHALER 6GM INH SCH (19:00)
[2023-02-02 20:00] VITALS: BP 119/74
[2023-02-02] MEDS: ENOXAPARIN 40MG/0.4ML SYRINGE (J1650 PER 10MG) SC SCH (20:12)
[2023-02-02] MEDS ORDERED: TOPIRAMATE (TopAMAX) 25 MG TAB PO SCH (21:00)
[2023-02-03] MEDS: LR 1,000 ML IV SCH ×3 (00:48→20:30)
[2023-02-03] MEDS: PIPERACILLIN/TAZOBACTAM SOD 3.375 GM in D5W MINI-BAG PLUS 50 ML IV SCH ×4 (03:13→22:57)
[2023-02-03] MEDS: ONDANSETRON 4MG 2ML VIAL IV PRN ×2 (03:26→22:38)
[2023-02-03] MEDS: PANTOPRAZOLE 40MG VIAL IV SCH ×2 (05:26→17:54)
[2023-02-03] MEDS: clonazePAM 0.5 MG TAB PO PRN (05:28)
[2023-02-03] MEDS: ACETAMINOPHEN TAB 650MG DOSE (2X325MG) PO PRN ×3 (05:29→22:59)
[2023-02-03 05:47] VITALS: BP 130/78
[2023-02-03 06:15] LABS: BASO % 0.2 % (0.0-1.0); EOS # 0.1 10^3/uL (0.0-0.5); EOS % 0.8 % (0.0-3.0); HEMATOCRIT 36.8 % (36.0-47.0); HEMOGLOBIN 12.5 g/dl (12.0-15.5); LYMPH # 1.6 10^3/uL (1.5-5.0); LYMPH % 13.1 % (24.0-44.0); MEAN CORPUSCULAR HEMOGLOBIN 31.9 pg (27.0-33.0); MEAN CORPUSCULAR VOLUME 93.9 fl (80.0-96.0); MONO # 0.9 10^3/uL (0.0-0.8); MONO % 6.9 % (2.0-8.0); NEUTROPHILS # 9.7 10^3/uL (1.5-8.5); NEUTROPHILS % 78.7 % (36.0-66.0); PLATELET COUNT, AUTOMATED 146 10^3/uL (150-450); RED BLOOD COUNT 3.92 10^6/uL (4.00-5.40); WHITE BLOOD COUNT 12.3 10^3/uL (4.0-10.0)
[2023-02-03 06:40] LABS: BLOOD UREA NITROGEN 10 MG/DL (9-23); CALCIUM LEVEL 8.6 MG/DL (8.5-10.1); CARBON DIOXIDE LEVEL 24 MMOL/L (20-31); CHLORIDE LEVEL 108 MMOL/L (98-107); CREATININE FOR GFR 0.93 MG/DL (0.55-1.30); GLOMERULAR FILTRATION RATE > 60.0 (>51); GLUCOSE, FASTING 109 MG/DL (60-100); POTASSIUM SERUM 3.5 MMOL/L (3.5-5.1); SODIUM LEVEL 141 MMOL/L (136-145)
[2023-02-03] MEDS: SYMBICORT 160/4.5MCG INHALER 6GM INH SCH ×2 (07:22→19:21)
[2023-02-03] MEDS: MORPHINE 4 MG/ML 1ML VIAL IV PRN ×3 (08:52→22:59)
[2023-02-03] MEDS: MONTELUKAST 10 MG TAB PO SCH (08:52)
[2023-02-03 14:00] VITALS: BP 128/73
[2023-02-03 20:00] VITALS: BP 124/81
[2023-02-03] MEDS: ENOXAPARIN 40MG/0.4ML SYRINGE (J1650 PER 10MG) SC SCH (20:33)
[2023-02-03] MEDS ORDERED: MIRALAX *UNIT DOSE* 17GM PACKET PO SCH (21:00)
[2023-02-04] MEDS ORDERED: NS 1,000 ML IV SCH (00:50)
[2023-02-04] MEDS: PIPERACILLIN/TAZOBACTAM SOD 3.375 GM in D5W MINI-BAG PLUS 50 ML IV SCH ×4 (04:16→21:51)
[2023-02-04] MEDS: PANTOPRAZOLE 40MG VIAL IV SCH ×2 (06:12→18:17)
[2023-02-04] MEDS: ACETAMINOPHEN TAB 650MG DOSE (2X325MG) PO PRN (06:13)
[2023-02-04 06:41] VITALS: BP 133/83
[2023-02-04] MEDS: SYMBICORT 160/4.5MCG INHALER 6GM INH SCH ×2 (07:10→19:14)
[2023-02-04 07:13] LABS: BASO % 0.1 % (0.0-1.0); EOS # 0.2 10^3/uL (0.0-0.5); HEMATOCRIT 37.6 % (36.0-47.0); HEMOGLOBIN 12.6 g/dl (12.0-15.5); LYMPH # 1.8 10^3/uL (1.5-5.0); LYMPH % 25.6 % (24.0-44.0); MEAN CORPUSCULAR HEMOGLOBIN 31.9 pg (27.0-33.0); MEAN CORPUSCULAR HGB CONC 33.5 g/dl (32.0-36.5); MEAN CORPUSCULAR VOLUME 95.2 fl (80.0-96.0); MONO # 0.6 10^3/uL (0.0-0.8); NEUTROPHILS # 4.4 10^3/uL (1.5-8.5); PLATELET COUNT, AUTOMATED 147 10^3/uL (150-450); RED BLOOD COUNT 3.95 10^6/uL (4.00-5.40)
[2023-02-04 07:38] LABS: BLOOD UREA NITROGEN 9 MG/DL (9-23); CALCIUM LEVEL 8.1 MG/DL (8.5-10.1); CARBON DIOXIDE LEVEL 25 MMOL/L (20-31); CHLORIDE LEVEL 112 MMOL/L (98-107); CREATININE FOR GFR 0.91 MG/DL (0.55-1.30); GLOMERULAR FILTRATION RATE > 60.0 (>51); GLUCOSE, FASTING 102 MG/DL (60-100); SODIUM LEVEL 144 MMOL/L (136-145)
[2023-02-04] MEDS ORDERED: hydrOXYzine 50 MG TAB PO PRN (08:25)
[2023-02-04] MEDS ORDERED: traZODone 50 MG TAB PO PRN (08:25)
[2023-02-04] MEDS ORDERED: SUMAtriptan SUCCINATE 6MG/0.5ML VIAL SC PRN (08:25)
[2023-02-04] MEDS ORDERED: methylPREDNISolone 40MG 1ML VIAL IV ONE (08:25)
[2023-02-04] MEDS ORDERED: diphenhydrAMINE 50MG/ML VIAL IV ONE (08:25)
[2023-02-04] MEDS: MONTELUKAST 10 MG TAB PO SCH (08:50)
[2023-02-04] MEDS: TOPIRAMATE (TopAMAX) 25 MG TAB PO SCH ×2 (09:00→21:50)
[2023-02-04] MEDS: HYDROXYCHLOROQUINE 200 MG TAB PO SCH ×2 (10:25→22:22)
[2023-02-04] MEDS: LACTULOSE 20GM/30ML SYRUP UDC PO SCH ×2 (10:26→18:17)
[2023-02-04] MEDS ORDERED: TOPIRAMATE (TopAMAX) 25 MG TAB PO ONE (11:55)
[2023-02-04] MEDS: MORPHINE 4 MG/ML 1ML VIAL IV PRN ×2 (13:55→19:53)
[2023-02-04 14:00] VITALS: BP 130/98
[2023-02-04 20:50] VITALS: BP 128/67
[2023-02-04] MEDS: ENOXAPARIN 40MG/0.4ML SYRINGE (J1650 PER 10MG) SC SCH (21:51)
[2023-02-04] MEDS: ONDANSETRON 4MG 2ML VIAL IV PRN (22:22)
[2023-02-04] MEDS ORDERED: SIMETHICONE 80MG CHEW TAB PO PRN (23:40)
[2023-02-05] MEDS: LACTULOSE 20GM/30ML SYRUP UDC PO SCH ×3 (00:02→12:00)
[2023-02-05] MEDS: MORPHINE 4 MG/ML 1ML VIAL IV PRN ×3 (02:54→09:39)
[2023-02-05] MEDS: PIPERACILLIN/TAZOBACTAM SOD 3.375 GM in D5W MINI-BAG PLUS 50 ML IV SCH ×2 (04:10→09:39)
[2023-02-05 05:30] VITALS: BP 127/81
[2023-02-05] MEDS: PANTOPRAZOLE 40MG VIAL IV SCH (05:32)
[2023-02-05 06:39] LABS: BASO % 0.1 % (0.0-1.0); EOS # 0.2 10^3/uL (0.0-0.5); EOS % 1.3 % (0.0-3.0); HEMATOCRIT 41.3 % (36.0-47.0); HEMOGLOBIN 13.6 g/dl (12.0-15.5); LYMPH # 2.5 10^3/uL (1.5-5.0); LYMPH % 22.2 % (24.0-44.0); MEAN CORPUSCULAR HEMOGLOBIN 31.3 pg (27.0-33.0); MEAN CORPUSCULAR HGB CONC 32.9 g/dl (32.0-36.5); MEAN CORPUSCULAR VOLUME 94.9 fl (80.0-96.0); MONO # 0.9 10^3/uL (0.0-0.8); MONO % 8.1 % (2.0-8.0); NEUTROPHILS # 7.6 10^3/uL (1.5-8.5); PLATELET COUNT, AUTOMATED 195 10^3/uL (150-450); RED BLOOD COUNT 4.35 10^6/uL (4.00-5.40); WHITE BLOOD COUNT 11.2 10^3/uL (4.0-10.0)
[2023-02-05 07:08] LABS: BLOOD UREA NITROGEN 10 MG/DL (9-23); CALCIUM LEVEL 9.3 MG/DL (8.5-10.1); CARBON DIOXIDE LEVEL 22 MMOL/L (20-31); CHLORIDE LEVEL 111 MMOL/L (98-107); GLOMERULAR FILTRATION RATE > 60.0 (>51); GLUCOSE, FASTING 109 MG/DL (60-100); POTASSIUM SERUM 3.6 MMOL/L (3.5-5.1); SODIUM LEVEL 143 MMOL/L (136-145)
[2023-02-05] MEDS: SYMBICORT 160/4.5MCG INHALER 6GM INH SCH (07:59)
[2023-02-05] MEDS: MONTELUKAST 10 MG TAB PO SCH (09:39)
[2023-02-05] MEDS: TOPIRAMATE (TopAMAX) 25 MG TAB PO SCH (09:39)
[2023-02-05] MEDS: HYDROXYCHLOROQUINE 200 MG TAB PO SCH (09:39)
[2023-02-05] MEDS ORDERED: CEFD300C41 PO (10:26)
[2023-02-05] MEDS ORDERED: COLA100C5 PO (10:26)
[2023-02-05] MEDS ORDERED: METR-265 PO (10:26)
[2023-02-05] MEDS ORDERED: SENN8.6T28 PO (10:26)
[2023-02-05] MEDS ORDERED: LACT20EL PO (10:26)
== END 2023-02-05 14:19 | disposition home or self-care (01) | DRG 254 ==
LOC: M ED 05:53 → M ED INP 12:46 → ENRESERV 14:13 → M MSPAV 15:26
PROVIDERS: ADMIT Internal Medicine Nephrology; ATTEND Internal Medicine Nephrology
DX: K62.89 Other specified diseases of anus and rectum (principal); K50.90 Crohn's disease, unspecified, without complications; M32.9 Systemic lupus erythematosus, unspecified; K21.9 Gastro-esophageal reflux disease without esophagitis; N80.9 Endometriosis, unspecified; K64.9 Unspecified hemorrhoids; E28.2 Polycystic ovarian syndrome; E87.6 Hypokalemia; D50.9 Iron deficiency anemia, unspecified; G47.33 Obstructive sleep apnea (adult) (pediatric); J45.909 Unspecified asthma, uncomplicated; G43.909 Migraine, unspecified, not intractable, without status migrainosus; E53.8 Deficiency of other specified B group vitamins; E55.9 Vitamin D deficiency, unspecified; I73.00 Raynaud's syndrome without gangrene; M50.30 Other cervical disc degeneration, unspecified cervical region; Z86.73 Personal history of transient ischemic attack (TIA), and cerebral infarction without residual deficits; Z90.79 Acquired absence of other genital organ(s); Z90.49 Acquired absence of other specified parts of digestive tract; Z79.891 Long term (current) use of opiate analgesic; Z88.1 Allergy status to other antibiotic agents; Z88.8 Allergy status to other drugs, medicaments and biological substances; Z91.048 Other nonmedicinal substance allergy status

== ENCOUNTER → 2023-02-26 | Outpatient (CLI) | payer OTHER ==
[~2023-02-26] MED LIST changes: +ACET-897 PO; +AZEL1SPR3 NARES; +BENF150C3 PO; +BREO1INH3 INH; +CEFD300C41 PO; +CLON0.5T17 PO; +COLA100C5 PO; +CYCL-707 PO; +DIPH-435 PO; +EQL50TAB2 PO; +FOLI400T13 PO; +HYDR50TA70 PO; +HYOS0.374 PO; +IBUP80TA PO; +LACT20EL PO; +LIDO15SO PO; -LIDO15SO4 PO; +LINZ72CA PO; +METR-265 PO; +PHEN15CA6 PO; +POTA99CA2 PO; +SENN8.6T28 PO; +SIME80CH5 PO; +TOPI1CAP4 PO; +TRAZ-252 PO; +VITA200032 PO
[2023-02-26 15:03] LABS: ALBUMIN 3.6 G/DL (3.2-5.2); ALKALINE PHOSPHATASE 57 U/L (46-116); ALT/SGPT 21 U/L (7.0-40); AST/SGOT 20 U/L (<34); BILIRUBIN,TOTAL 0.3 MG/DL (0.3-1.2); BLOOD UREA NITROGEN 8 MG/DL (9-23); CALCIUM LEVEL 8.9 MG/DL (8.5-10.1); CARBON DIOXIDE LEVEL 26 MMOL/L (20-31); CHLORIDE LEVEL 109 MMOL/L (98-107); CREATININE FOR GFR 0.89 MG/DL (0.55-1.30); GLOMERULAR FILTRATION RATE > 60.0 (>51); GLUCOSE, FASTING 87 MG/DL (60-100); SODIUM LEVEL 145 MMOL/L (136-145); TOTAL PROTEIN 6.3 G/DL (5.7-8.2)
== END ==
LOC: M PLALAB 13:47 → M LAB 13:47
PROVIDERS: ATTEND Physician Assistant
DX: R60.9 Edema, unspecified (principal)

== ENCOUNTER → 2023-02-26 | Outpatient (CLI) | payer OTHER ==
[2023-02-26 14:36] LABS: BASO % 0.4 % (0.0-1.0); EOS # 0.2 10^3/uL (0.0-0.5); EOS % 2.4 % (0.0-3.0); HEMATOCRIT 39.6 % (36.0-47.0); HEMOGLOBIN 13.1 g/dl (12.0-15.5); LYMPH # 2.2 10^3/uL (1.5-5.0); LYMPH % 31.3 % (24.0-44.0); MEAN CORPUSCULAR HEMOGLOBIN 31.2 pg (27.0-33.0); MEAN CORPUSCULAR HGB CONC 33.1 g/dl (32.0-36.5); MEAN CORPUSCULAR VOLUME 94.3 fl (80.0-96.0); MONO # 0.6 10^3/uL (0.0-0.8); MONO % 8.1 % (2.0-8.0); NEUTROPHILS # 4.1 10^3/uL (1.5-8.5); NEUTROPHILS % 56.8 % (36.0-66.0); PLATELET COUNT, AUTOMATED 252 10^3/uL (150-450); WHITE BLOOD COUNT 7.2 10^3/uL (4.0-10.0)
[2023-02-26 15:03] LABS: ALBUMIN 3.7 G/DL (3.2-5.2); ALKALINE PHOSPHATASE 56 U/L (46-116); ALT/SGPT 22 U/L (7.0-40); AST/SGOT 17 U/L (<34); BILIRUBIN,TOTAL 0.3 MG/DL (0.3-1.2); BLOOD UREA NITROGEN 7 MG/DL (9-23); CALCIUM LEVEL 8.7 MG/DL (8.5-10.1); CARBON DIOXIDE LEVEL 25 MMOL/L (20-31); CHLORIDE LEVEL 109 MMOL/L (98-107); GLOMERULAR FILTRATION RATE > 60.0 (>51); GLUCOSE, FASTING 86 MG/DL (60-100); IRON (FE) 62 UG/DL (50-170); PERCENT SATURATION 25.9 % (13.2-45.0); POTASSIUM SERUM 3.1 MMOL/L (3.5-5.1); SODIUM LEVEL 144 MMOL/L (136-145); TOTAL IRON BINDING CAPACITY 239 UG/DL (250-425); TOTAL PROTEIN 6.4 G/DL (5.7-8.2)
[2023-02-26 15:05] LABS: FERRITIN 129.3 NG/ML (7.3-270.7)
== END ==
LOC: M LAB 13:49 → M PLALAB 13:49
PROVIDERS: ATTEND Internal Medicine Medical Oncology
DX: D50.9 Iron deficiency anemia, unspecified (principal)

== ENCOUNTER → 2023-03-17 | Outpatient (CLI) | payer OTHER ==
[~2023-03-17] MED LIST changes: +ISOVUE-370 76% 100ML VIAL As Ordered ONE
== END ==
LOC: M RAD 13:53
PROVIDERS: ATTEND Nurse Practitioner Adult Health
DX: R06.02 Shortness of breath (principal); J45.40 Moderate persistent asthma, uncomplicated
CPT/HCPCS: 71046; Q9967

== ENCOUNTER → 2023-03-17 | Outpatient (CLI) | payer OTHER ==
[~2023-03-17] MED LIST changes: +GASTROGRAFIN SOLUTION 30ML As Ordered ONE; -ISOVUE-370 76% 100ML VIAL As Ordered ONE
== END ==
LOC: M RAD 13:51
PROVIDERS: ATTEND Physician Assistant
DX: K52.9 Noninfective gastroenteritis and colitis, unspecified (principal); R91.8 Other nonspecific abnormal finding of lung field
CPT/HCPCS: 74177; Q9963

== ENCOUNTER → 2023-04-20 | Outpatient (REF) | payer OTHER ==
[~2023-04-20] MED LIST changes: -GASTROGRAFIN SOLUTION 30ML As Ordered ONE
== END ==
LOC: M LAB REF 19:50
PROVIDERS: ATTEND Nurse Practitioner Adult Health
DX: J45.40 Moderate persistent asthma, uncomplicated (principal)

== ENCOUNTER → 2023-05-13 | Outpatient (CLI) | payer OTHER ==
[~2023-05-13] MED LIST changes: +FREM225A SC; -HYDR200T3 PO; +HYDR200T46 PO; +SPIR50TA4 PO; +TOPI100T9 PO
== END ==
LOC: M PLAIMG 15:59
PROVIDERS: ATTEND Nurse Practitioner Adult Health
DX: J12.0 Adenoviral pneumonia (principal)

== ENCOUNTER → 2023-12-24 | Outpatient (CLI) | payer OTHER ==
[~2023-12-24] MED LIST changes: +CEFD1CAP9 PO; -CEFD300C41 PO; +POTA-298 PO
== END ==
LOC: M WHC 15:14
PROVIDERS: ATTEND Nurse Practitioner Family
DX: Z12.31 Encounter for screening mammogram for malignant neoplasm of breast (principal); R92.323 Mammographic fibroglandular density, bilateral breasts

== ENCOUNTER → 2023-12-24 | Outpatient (REF) | payer OTHER | LOC: M SFHCWAGY 11:47 | PROVIDERS: ATTEND Nurse Practitioner Family | DX: Z12.4 Encounter for screening for malignant neoplasm of cervix (principal) ==

== ENCOUNTER → 2024-02-04 | Outpatient (REF) | payer OTHER, MEDICAID ==
[~2024-02-04] MED LIST changes: -LIDO15SO PO; +LIDO15SO8 PO
== END ==
LOC: M SFHCWAGY 16:38
PROVIDERS: ATTEND Nurse Practitioner Family
DX: N39.0 Urinary tract infection, site not specified (principal)

== ENCOUNTER → 2024-02-25 | Outpatient (CLI) | payer OTHER ==
[2024-02-25 17:22] LABS: BASO % 0.5 % (0.0-1.0); EOS # 0.2 10^3/uL (0.0-0.5); EOS % 2.3 % (0.0-3.0); HEMATOCRIT 40.8 % (36.0-47.0); HEMOGLOBIN 14.1 g/dl (12.0-15.5); LYMPH # 2.5 10^3/uL (1.5-5.0); LYMPH % 38.1 % (24.0-44.0); MEAN CORPUSCULAR HEMOGLOBIN 32.2 pg (27.0-33.0); MEAN CORPUSCULAR HGB CONC 34.6 g/dl (32.0-36.5); MEAN CORPUSCULAR VOLUME 93.2 fl (80.0-96.0); MONO # 0.3 10^3/uL (0.0-0.8); MONO % 5.1 % (2.0-8.0); NEUTROPHILS # 3.5 10^3/uL (1.5-8.5); NEUTROPHILS % 53.8 % (36.0-66.0); PLATELET COUNT, AUTOMATED 250 10^3/uL (150-450); RED BLOOD COUNT 4.38 10^6/uL (4.00-5.40); WHITE BLOOD COUNT 6.5 10^3/uL (4.0-10.0)
[2024-02-25 17:36] LABS: ERYTHROCYTE SEDIMENTATION RATE 7 mm/hr (0-30)
[2024-02-25 17:54] LABS: C REACTIVE PROTEIN QUANTITATIV < 0.40 MG/DL (<1.0)
[2024-02-25 17:56] LABS: ALKALINE PHOSPHATASE 56 U/L (46-116); ALT/SGPT 21 U/L (7.0-40); AST/SGOT 17 U/L (<34); BILIRUBIN,DIRECT 0.2 MG/DL (<0.4); BILIRUBIN,TOTAL 0.6 MG/DL (0.3-1.2); BLOOD UREA NITROGEN 8 MG/DL (9-23); CREATININE FOR GFR 0.99 MG/DL (0.55-1.30); GLOMERULAR FILTRATION RATE > 60.0 (>51)
[2024-02-25 17:57] LABS: THYROID STIMULATING HORMONE 2.703 uIU/ML (0.55-4.78)
[2024-02-25 17:58] LABS: FREE T4 1.39 NG/DL (0.89-1.76)
== END ==
LOC: M LAB 16:18
PROVIDERS: ATTEND Internal Medicine Gastroenterology
DX: K50.012 Crohn's disease of small intestine with intestinal obstruction (principal)

== ENCOUNTER → 2024-02-25 | Outpatient (CLI) | payer OTHER ==
[2024-02-25 18:41] LABS: BASO % 0.2 % (0.0-1.0); EOS # 0.1 10^3/uL (0.0-0.5); EOS % 2.2 % (0.0-3.0); HEMATOCRIT 41.5 % (36.0-47.0); LYMPH # 2.5 10^3/uL (1.5-5.0); LYMPH % 38.2 % (24.0-44.0); MEAN CORPUSCULAR HEMOGLOBIN 31.3 pg (27.0-33.0); MEAN CORPUSCULAR HGB CONC 33.7 g/dl (32.0-36.5); MEAN CORPUSCULAR VOLUME 92.6 fl (80.0-96.0); MONO # 0.3 10^3/uL (0.0-0.8); MONO % 5.3 % (2.0-8.0); NEUTROPHILS # 3.5 10^3/uL (1.5-8.5); NEUTROPHILS % 53.9 % (36.0-66.0); PLATELET COUNT, AUTOMATED 258 10^3/uL (150-450); RED BLOOD COUNT 4.48 10^6/uL (4.00-5.40); WHITE BLOOD COUNT 6.4 10^3/uL (4.0-10.0)
[2024-02-25 18:58] LABS: IRON (FE) 95 UG/DL (50-170); PERCENT SATURATION 28.6 % (13.2-45.0); TOTAL IRON BINDING CAPACITY 332 UG/DL (250-425)
[2024-02-25 18:59] LABS: ALKALINE PHOSPHATASE 56 U/L (46-116); ALT/SGPT 21 U/L (7.0-40); AST/SGOT 15 U/L (<34); BILIRUBIN,TOTAL 0.6 MG/DL (0.3-1.2); BLOOD UREA NITROGEN 7 MG/DL (9-23); CARBON DIOXIDE LEVEL 26 MMOL/L (20-31); CHLORIDE LEVEL 108 MMOL/L (98-107); GLOMERULAR FILTRATION RATE > 60.0 (>51); GLUCOSE, FASTING 100 MG/DL (60-100); POTASSIUM SERUM 3.6 MMOL/L (3.5-5.1); SODIUM LEVEL 143 MMOL/L (136-145)
[2024-02-25 19:00] LABS: FERRITIN 43.3 NG/ML (7.3-270.7)
== END ==
LOC: M LAB 16:20
PROVIDERS: ATTEND Internal Medicine Medical Oncology
DX: D59.0 Drug-induced autoimmune hemolytic anemia (principal)